=== PATIENT | female | born 1950 | race Caucasian/White ===

== ENCOUNTER 2024-11-06 19:41 | Inpatient (IN) ==
[2024-11-06] MEDS: MoRPHine SULFATE 4 MG/ML 1 ML CARP\\VIAL IV STA (20:22)
[2024-11-06] MEDS: ONDANSETRON INJ 2 MG/ML 2 ML VIAL IV STA (20:23)
[2024-11-06 20:29] LABS: Albumin Globulin Ratio 0.9 (0.9-2); BUN Creatinine Ratio 13.4 (10-20); Bilirubin,Total 1.1 mg/dl (0.2-1.0); Calcium 9.2 mg/dl (8.6-10.3); Creatinine Clr Calc Pharmacy 63.4 ml/min; Globulin 4.2 gm/dl (2.5-4.0); Potassium 4.1 mmol/L (3.5-5.1); Total Protein 7.9 gm/dl (6.0-8.3)
[2024-11-06 20:49] LABS: Basophils # (auto) 0.03 K/uL (0.00-0.20); Basophils % (auto) 0.7 %; Eosinophils # (auto) 0.04 K/uL (0.00-0.50); Eosinophils % (auto) 0.9 %; Hematocrit (blood only) 45.2 % (37.0-47.0); Hemoglobin 15.8 g/dl (12.0-16.0); Immature Granulocytes # (auto) 0.03 K/uL (0.01-0.20); Immature Granulocytes % (auto) 0.7 %; Lymphocytes # (auto) 1.07 K/uL (1.20-3.40); Lymphocytes % (auto) 23.7 %; Mean Corpuscular Volume 88.8 fL (80.0-100.0); Mean Platelet Volume 10.6 fL (9.4-12.4); Monocytes # (auto) 0.44 K/uL (0.11-0.59); Monocytes % (auto) 9.8 %; Neutrophils % (auto) 64.2 %; Platelet Count 163 K/uL (130-400); RDW Coefficient of Variation 13.2 % (11.5-14.5); RDW Standard Deviation 43.2 fL (36.4-46.3); Red Blood Count 5.09 M/uL (4.20-5.40); White Blood Count 4.51 K/ul (4.8-10.8)
--- NOTE | 2024-11-06 21:03 | Emergency Department Note ---
Impression & Plan Closed fracture of left hip, Fall, Atrial fibrillation ED Provider Note NAME: COLTEN ALVARES AGE: 74 SEX: F : 1950 ARRIVES VIA: Ambulance INFORMANT: [Patient][family] ED PROVIDER(S): [Ra Melvin MD] CHIEF COMPLAINT: Hip pain HISTORY OF PRESENT ILLNESS: The patient is a 74-year-old female who states that she was in her normal state of health when a short time ago, she went to sit on the couch and missed the end of the couch falling on her left hip. She had severe left hip pain and could not walk after. She presents for evaluation. There was no chest pain or shortness of breath. She has not injured her head, neck, back, ribs or abdomen. Her only complaint is in the area of the left hip. She is on aspirin, no strong blood thinning agents. PMHx/PSHx/Social Hx: See Below PHYSICAL EXAM: Primary Survey Airway: Intact Breathing: Breath sounds equal bilaterally. No respiratory distress Circulation: Skin warm, capillary refill less than 2 seconds Disability: Pupils equal and reactive to light Motor Function: Moves all extremities. Sensory: No deficits Secondary Survey GEN: Well developed and well-nourished HEAD: Normocephalic, atraumatic EYES: Pupils round and reactive to light, conjunctiva clear, extraocular movements intact ENT: No fluid in external acoustic canals, nares patent, oropharynx clear NECK: Midline trachea, no cervical spine tenderness HEART: Slightly irregular rhythm with a normal rate. 3/6 systolic murmur. LUNGS: Clear to auscultation bilaterally CHEST: Chest wall non-tender, no bruising/deformity ABD: No contusions, soft, non-tender, no distention PELVIS: Stable to rock BACK: No step offs or deformities, T-L spine non tender EXT: The left hip is tender to palpation and movement. She has a shortened and externally rotated left lower extremity. NEURO: No focal motor deficits, no sensory deficits DIFFERENTIAL DIAGNOSIS: Fracture, sprain, strain, hematoma, among others. EMERGENCY DEPARTMENT PROCEDURES: C-spine clinically cleared at the time of my initial evaluation/assessment. MEDICAL DECISION MAKING: There is no leukocytosis or concerning anemia. There is a normal platelet count. No coagulopathy. No renal failure or significant electrolyte abnormality. No concerning liver enzyme elevation. ECG shows what appears to be atrial fibrillation without acute ischemia. Cardiac enzyme testing x 1 is not consistent with acute cardiac injury. Chest x-ray does not show any obvious pneumonia or concerning CHF. Films of the left hip and pelvis show a an intertrochanteric hip fracture. On exam, the patient was tender in the area of the left hip. No other obvious injuries by exam or history. The patient is in need of hospitalization. She has fractured her left hip. I did provide pain medication, IV morphine. She was given IV Zofran for nausea. I did speak with orthopedics. I did speak with the patient and family. I did consult case management, I did consult the on-call hospitalist. She requires admission and orthopedic intervention. Of note, the atrial fibrillation findings were discussed with the patient, she is unaware of having a history of A-fib. She is not anticoagulated. Prior/Outside records/notes reviewed: Today's EMS notes describing her presentation and transport of the hospital. ECG per my interpretation: Indication was fall. The ECG shows what appears to be atrial fibrillation with a rate of 80. 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 LVH is present. There is no ST elevation, no PVCs but the QTc is 486. Continuous Cardiac Monitoring per my interpretation: An order was placed for continuous cardiac monitoring. The monitor shows a rate of 83 with atrial fibrillation. Imaging/x-ray results per my interpretation: Chest x-ray does not show any obvious CHF or obvious pneumonia. There were some changes suspected from her body habitus. Films of the left hip and pelvis show a intertrochanteric hip fracture. Chronic Medical/Social conditions affecting care: Advanced age. Care/Management discussed with: Orthopedics-Dr. Fitch. Case management and the on-call hospitalist. Level of care consideration(s): After review of the information above and other included data: --I believe the patient requires escalation of care to admission DISPOSITION: Admission Past Med/Surg History Problem List (Updated 11/07/24 @ 11:37 by Ra Melvin MD) Atrial fibrillation (Acute) Fall (Acute) Closed fracture of left hip (Acute) Chronic heart failure with preserved ejection fraction Severe pulmonary hypertension Atrial fibrillation with controlled ventricular response Moderate mitral regurgitation Severe mitral valve stenosis Preop cardiovascular exam CHF (congestive heart failure) Closed left hip fracture Medical History Aortic stenosis Social History Smoking Status: Former smoker Smoking End Date: 5 years ago; Hx Alcohol Use: Yes Alcohol type: wine Hx Substance Use: No Preferred Language: New Zealander Communication Ability: Effective 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 Beliefs That Will Affect Care: None Current Living Situation: Spouse Other Information That Helps Us Care for You: No Feels Safe at Home: Yes Safety Concerns: Feels Safe At This Time Assistive Devices: Cane Allergies Allergies Allergy/AdvReac Type Severity Reaction Status Date / Time Penicillins Allergy Itching Verified 11/06/24 23:26 Home Meds Home Medications Medication Instructions Recorded Confirmed carvedilol 25 mg tablet 25 mg PO BID 11/06/24 11/06/24 hydrochlorothiazide 25 mg tablet 25 mg PO DAILY 11/06/24 11/06/24 lisinopril 20 mg tablet 20 mg PO DAILY 11/06/24 11/06/24 Results & Data (ED) Vital Signs Vital Signs - 24 hr 11/06/24 19:48 Temperature 36.5 C Temperature Source Oral Pulse Rate 83 Respiratory Rate 22 Blood Pressure 147/86 H Blood Pressure Mean 106 Blood Pressure Position Sitting Pulse Oximetry 93 Oxygen Delivery Method Room Air Sepsis Recent Fever Within 48 Hours No Sepsis New/Unexplained Change in Mental Status No Sepsis Action Taken by Nursing No Action Required Home Medications Current Medication List: was personally reviewed by me Laboratory Data Attestation: I reviewed the patient's lab results. 11/07/24 05:44 11/07/24 05:44 Lab Results 11/06/24 11/06/24 Range/Units 19:54 19:57 WBC 4.51 L (4.8-10.8) K/ul RBC 5.09 (4.20-5.40) M/uL Hgb 15.8 (12.0-16.0) g/dl Hct 45.2 (37.0-47.0) % MCV 88.8 (80.0-100.0) fL MCH 31.0 (25.0-34.0) pg MCHC 35.0 (32.0-36.0) g/dL RDW Std Deviation 43.2 (36.4-46.3) fL RDW Coeff of Gifty 13.2 (11.5-14.5) % Plt Count 163 (130-400) K/uL MPV 10.6 (9.4-12.4) fL Immature Gran % (Auto) 0.7 % Neut % (Auto) 64.2 % Lymph % (Auto) 23.7 % Arthur % (Auto) 9.8 % Eos % (Auto) 0.9 % Baso % (Auto) 0.7 % Neut # (Auto) 2.90 (1.40-6.50) K/uL Lymph # (Auto) 1.07 L (1.20-3.40) K/uL Arthur # (Auto) 0.44 (0.11-0.59) K/uL Eos # (Auto) 0.04 (0.00-0.50) K/uL Baso # (Auto) 0.03 (0.00-0.20) K/uL Immature Gran # (Auto) 0.03 (0.01-0.20) K/uL PT 11.9 (9.0-12.0) Seconds INR 1.1 (0.9-1.1) APTT 29 (21-31) Seconds PTT Ratio 1.1 Sodium 137 (136-145) mmol/L Potassium 4.1 (3.5-5.1) mmol/L Chloride 106 (98-107) mmol/L Carbon Dioxide 20 L (21-32) mmol/L Anion Gap 11 (3-11) BUN 13 (6-23) mg/dl Creatinine 0.97 (0.6-1.2) mg/dl Est Cr Clr Drug Dosing 63.4 ml/min eGFR 61.32 BUN/Creatinine Ratio 13.4 (10-20) Glucose 155 H (70-99(Fasting)) mg/dl Calcium 9.2 (8.6-10.3) mg/dl Total Bilirubin 1.1 H (0.2-1.0) mg/dl AST 29 (13-39) U/L ALT 16 (7-52) U/L Alkaline Phosphatase 62 (34-104) U/L Troponin I High Sens 8.2 (0-14) pg/ml Total Protein 7.9 (6.0-8.3) gm/dl Albumin 3.7 (3.4-5.0) gm/dl Globulin 4.2 H (2.5-4.0) gm/dl Albumin/Globulin Ratio 0.9 (0.9-2) Hepatitis C Ab Screen Negative (Negative) Administered Medications Carvedilol (Carvedilol 25 Mg Tab) 25 mg PO BID [facility] Stop: 12/07/24 08:59 Last Admin: 11/07/24 07:59 Dose: 25 mg Documented By: IRVING Hydrochlorothiazide (Hydrochlorothiazide 25 Mg Tab) 25 mg PO DAILY [facility] Stop: 12/07/24 08:59 Last Admin: 11/07/24 07:59 Dose: 25 mg Documented By: IRVING Hydromorphone HCl (Hydromorphone Inj 0.5 Mg/0.5 Ml Syr) 0.5 mg IV Q4H PRN PRN Reason: Severe Pain (Scale 7, 8, 9,10) Stop: 11/20/24 23:15 Last Admin: 11/07/24 08:01 Dose: 0.5 mg Documented By: Admin: 11/07/24 03:39 Dose: 0.5 mg Documented By: Admin: 11/06/24 23:42 Dose: 0.5 mg Documented By: BILLY Sodium Chloride (Nss) 1,000 mls @ 50 mls/hr IV .Q20H [facility] Stop: 11/09/24 23:15 Last Admin: 11/07/24 00:04 Dose: 50 mls/hr Documented By: BILLY Lisinopril (Lisinopril 20 Mg Tab) 20 mg PO DAILY [facility] Stop: 12/07/24 08:59 Last Admin: 11/07/24 07:59 Dose: 20 mg Documented By: IRVING Ondansetron HCl (Ondansetron Inj 2 Mg/Ml 2 Ml Vial) 4 mg IV Q6H PRN PRN Reason: Nausea And Vomiting Stop: 12/06/24 23:20 Last Admin: 11/07/24 00:53 Dose: 4 mg Documented By: BILLY Discontinued Medications Carvedilol (Carvedilol 25 Mg Tab) 25 mg PO NOW ONE Stop: 11/06/24 21:48 Last Admin: 11/06/24 23:44 Dose: 25 mg Documented By: BILLY Hydromorphone HCl (Hydromorphone Inj 0.5 Mg/0.5 Ml Syr) 0.5 mg IV NOW STA Stop: 11/07/24 00:07 Last Admin: 11/07/24 00:19 Dose: 0.5 mg Documented By: KRT Miscellaneous Information (Patient's Allergy Info Needs Entered) 1 each N/A Q30M STA Stop: 11/06/24 23:24 Last Admin: 11/06/24 23:27 Dose: 1 each Documented By: KRT Morphine Sulfate (Morphine Sulfate 4 Mg/Ml 1 Ml Carp\Vial) 4 mg IV NOW STA Stop: 11/06/24 20:17 Last Admin: 11/06/24 20:22 Dose: 4 mg Documented By: QGV Morphine Sulfate (Morphine Sulfate 4 Mg/Ml 1 Ml Carp\Vial) 4 mg IV Q15M PRN PRN Reason: Pain Stop: 11/20/24 20:15 Last Admin: 11/06/24 21:06 Dose: 4 mg Documented By: QGV Ondansetron HCl (Ondansetron Inj 2 Mg/Ml 2 Ml Vial) 4 mg IV NOW STA Stop: 11/06/24 20:17 Last Admin: 11/06/24 20:23 Dose: 4 mg Documented By: QGV Discharge Plan Visit Data Chief Complaint: Hip Pain Stated Complaint: Fall, L Hip Pain ED Provider: Ra Melvin Discharge Problem: Closed fracture of left hip, Fall, Atrial fibrillation Patient Disposition: Admitted As Inpatient Condition: Fair Discharge Instructions Interventions: ED Discharge Assessment Last Done: 11/06/24 22:44 Discharge Problem: Closed fracture of left hip Qualifiers: Encounter type: initial encounter Qualified Code(s): S72.002A - Fracture of unspecified part of neck of left femur, initial encounter for closed fracture Fall Qualifiers: Encounter type: initial encounter Qualified Code(s): W19.XXXA - Unspecified fall, initial encounter Atrial fibrillation Qualifiers: Atrial fibrillation type: unspecified Qualified Code(s): I48.91 - Unspecified atrial fibrillation
[2024-11-06] MEDS: MoRPHine SULFATE 4 MG/ML 1 ML CARP\\VIAL IV PRN (21:06)
[2024-11-06 21:41] LABS: INR 1.1 (0.9-1.1); Partial Thromboplastin Ratio 1.1; Partial Thromboplastin Time 29 Seconds (21-31); Prothrombin Time 11.9 Seconds (9.0-12.0)
--- NOTE | 2024-11-06 21:56 | History & Physical Report ---
Date of Service November 06, 2024 Assessment & Plan (1) Closed left hip fracture: Plan: 74-year-old female from [place] visiting [place] and the son is surgeon in our hospital with past medical history significant for hypertension, CHF is status post fall and left hip fracture. Patient says she has chronic pain in the left hip. Lately walking with a cane and has difficulty ambulating.. Patient says she can walk about a block slowly but family does not think so. She was trying to sit in a chair today when she slipped and fell down in the sitting position and hurt her left hip. Did not hit her head. No loss of consciousness. Having lot of pain in the left hip region. Denies any headache. No dizziness. She has cataract in left eye and vision is not that great in that eye. No headache. No runny nose or sore throat. No recent fevers. Constantin es chest pain. No shortness of breath. No nausea. No abdominal pain. Normal bowel and bladder movements. Currently hemodynamics okay. Closed left hip fracture Status post mechanical fall History of hypertension and CHF EKG questionable A-fib possible new Labs are okay Checks x-ray possible mild congestion Ambulatory status not great Will monitor on telemetry Follow repeat labs Follow repeat EKG Will follow echo Consult cardiology for preop evaluation Pain control N.p.o. Ortho consult in a.m. Possible new A-fib Monitor on telemetry Echo Cardiac consult for further recommendation History of CHF No records available Will follow echo Patient on hydrochlorothiazide which will be continued Patient getting gentle fluids as n.p.o. Will monitor for volume overload History of hypertension Continue Coreg and lisinopril hydrochlorothiazide Will monitor DVT prophylaxis SCDs on right leg Further anticoagulation as per Ortho Disposition Telemetry Full code. History of Present Illness Chief Complaint: Status post fall and left hip fracture Primary Care Provider: NO PCP 74-year-old female from [place] visiting [place] and the son is surgeon in our hospital with past medical history significant for hypertension, CHF is status post fall and left hip fracture. Patient says she has chronic pain in the left hip. Lately walking with a cane and has difficulty ambulating.. Patient says she can walk about a block slowly but family does not think so. She was trying to sit in a chair today when she slipped and fell down in the sitting position and hurt her left hip. Did not hit her head. No loss of consciousness. Having lot of pain in the left hip region. Denies any headache. No dizziness. She has cataract in left eye and vision is not that great in that eye. No headache. No runny nose or sore throat. No recent fevers. Denies chest pain. No shortness of breath. No nausea. No abdominal pain. Normal bowel and bladder movements. Currently hemodynamics okay. Past medical history. As mentioned above Past surgical history. Cholecystectomy. Appendectomy. Tonsillectomy. Social history. Quit smoking 5 years ago. Alcohol occasionally. Family history. Father had heart attack at the age of 36. Mother had pancreatic cancer. Sister had cervical cancer and rectal cancer. Allergies Allergy/AdvReac Type Severity Reaction Status Date / Time Penicillins Allergy Itching Verified 11/06/24 23:26 Home Medications Medication Instructions Recorded Confirmed Type carvedilol 25 mg tablet 25 mg PO BID 11/06/24 11/06/24 History hydrochlorothiazide 25 mg tablet 25 mg PO DAILY 11/06/24 11/06/24 History lisinopril 20 mg tablet 20 mg PO DAILY 11/06/24 11/06/24 History Past Med/Surg History Problem List (Updated 11/06/24 @ 22:14 by Dong Paulson MD) Closed left hip fracture Social History Smoking Status: Former smoker Smoking End Date: 5 years ago; Hx Alcohol Use: Yes Alcohol type: wine Hx Substance Use: No Preferred Language: Samoan Communication Ability: Effective 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 ENT- oropharynx clear Neck- supple, no JVD. Lungs- clear to auscultation no wheezing or crackles Heart- regular rhythm; Systolic murmur, no gallop. Abdomen- normal bowel sounds, soft, nontender, no distension Extremities- B/L lower extremity chronic skin changes seen. Left lower extremity is shortened and externally rotated Neuro- alert, oriented PERRL, EOMI; no facial palsy; no dysarthria Results & Data Results & Data Vital Signs (Past 12 Hours) Vital Signs Temp Pulse Resp BP Pulse Ox O2 Del Method 11/06/24 19:48 36.5 C 83 22 147/86 H 93 Room Air Diagnostic Findings Laboratory Results WBC 4.51 K/ul (4.8-10.8) L 11/06/24 19:54 RBC 5.09 M/uL (4.20-5.40) 11/06/24 19:54 Hgb 15.8 g/dl (12.0-16.0) 11/06/24 19:54 Hct 45.2 % (37.0-47.0) 11/06/24 19:54 MCV 88.8 fL (80.0-100.0) 11/06/24 19:54 MCH 31.0 pg (25.0-34.0) 11/06/24 19:54 MCHC 35.0 g/dL (32.0-36.0) 11/06/24 19:54 RDW Std Deviation 43.2 fL (36.4-46.3) 11/06/24 19:54 RDW Coeff of Gifty 13.2 % (11.5-14.5) 11/06/24 19:54 Plt Count 163 K/uL (130-400) 11/06/24 19:54 MPV 10.6 fL (9.4-12.4) 11/06/24 19:54 Immature Gran % (Auto) 0.7 % 11/06/24 19:54 Neut % (Auto) 64.2 % 11/06/24 19:54 Lymph % (Auto) 23.7 % 11/06/24 19:54 Gilliam % (Auto) 9.8 % 11/06/24 19:54 Eos % (Auto) 0.9 % 11/06/24 19:54 Baso % (Auto) 0.7 % 11/06/24 19:54 Neut # (Auto) 2.90 K/uL (1.40-6.50) 11/06/24 19:54 Lymph # (Auto) 1.07 K/uL (1.20-3.40) L 11/06/24 19:54 Gilliam # (Auto) 0.44 K/uL (0.11-0.59) 11/06/24 19:54 Eos # (Auto) 0.04 K/uL (0.00-0.50) 11/06/24 19:54 Baso # (Auto) 0.03 K/uL (0.00-0.20) 11/06/24 19:54 Immature Gran # (Auto) 0.03 K/uL (0.01-0.20) 11/06/24 19:54 PT 11.9 Seconds (9.0-12.0) 11/06/24 19:57 INR 1.1 (0.9-1.1) 11/06/24 19:57 APTT 29 Seconds (21-31) 11/06/24 19:57 PTT Ratio 1.1 11/06/24 19:57 Sodium 137 mmol/L (136-145) 11/06/24 19:54 Potassium 4.1 mmol/L (3.5-5.1) 11/06/24 19:54 Chloride 106 mmol/L (98-107) 11/06/24 19:54 Carbon Dioxide 20 mmol/L (21-32) L 11/06/24 19:54 Anion Gap 11 (3-11) 11/06/24 19:54 BUN 13 mg/dl (6-23) 11/06/24 19:54 Creatinine 0.97 mg/dl (0.6-1.2) 11/06/24 19:54 Est Cr Clr Drug Dosing 63.4 ml/min 11/06/24 19:54 eGFR 61.32 11/06/24 19:54 BUN/Creatinine Ratio 13.4 (10-20) 11/06/24 19:54 Glucose 155 mg/dl (70-99(Fasting)) H 11/06/24 19:54 Calcium 9.2 mg/dl (8.6-10.3) 11/06/24 19:54 Total Bilirubin 1.1 mg/dl (0.2-1.0) H 11/06/24 19:54 AST 29 U/L (13-39) 11/06/24 19:54 ALT 16 U/L (7-52) 11/06/24 19:54 Alkaline Phosphatase 62 U/L (34-104) 11/06/24 19:54 Total Protein 7.9 gm/dl (6.0-8.3) 11/06/24 19:54 Albumin 3.7 gm/dl (3.4-5.0) 11/06/24 19:54 Globulin 4.2 gm/dl (2.5-4.0) H 11/06/24 19:54 Albumin/Globulin Ratio 0.9 (0.9-2) 11/06/24 19:54 ECG Additional Comments: ECG. Undetermined rhythm rate of 80. Left axis deviation. Incomplete right bundle branch block. QTc 486. Code Status & VTE Plan VTE Prophylaxis Plan VTE Prophylaxis will be ordered: Yes
[2024-11-06 22:49] LABS: Troponin I High Sensitivity 8.2 pg/ml (0-14)
--- NOTE | 2024-11-06 23:10 | XRay Report ---
Exam(s): XR CXR 1 VIEW EXAM: XR Chest, 1 View CLINICAL HISTORY: Reason for exam: screening. TECHNIQUE: Frontal view of the chest. COMPARISON: No relevant prior studies available. IMPRESSION: Cardiomegaly. Diffuse edema-like infiltrates, likely related to the CHF/fluid overload. No pleural fluid or pneumothorax. Electronically signed by: Shalom Mendez MD 11/06/24 23:09 PM
--- NOTE | 2024-11-06 23:12 | XRay Report ---
Exam(s): XR HIP + PELVIS, 1 view EXAM: XR Left Hip With Pelvis When Performed, 2 or 3 Views CLINICAL HISTORY: Reason for exam: Hip fracture. TECHNIQUE: Two or three views of the left hip with pelvis when performed. COMPARISON: No relevant prior studies available. IMPRESSION: Limited views. There is an acute intertrochanteric fracture of the proximal left femur with mild displacement. Advanced degenerative arthropathy is noted at the left hip joint. Electronically signed by: Shalom Mendez MD 11/06/24 23:11 PM
[2024-11-06] MEDS ORDERED: NITROGLYCERIN SL 0.4 MG/TAB TAB SL PRN (23:16)
[2024-11-06] MEDS: Patient's ALLERGY Info needs ENTERED STA (23:27)
[2024-11-06] MEDS: HYDROmorphone INJ 0.5 MG/0.5 ML SYR IV PRN (23:42)
[2024-11-06] MEDS: carvediloL 25 MG TAB PO ONE (23:44)
[2024-11-07] MEDS: SODIUM CHLORIDE 0.9% 1,000 ML IV SCH (00:04)
[2024-11-07] MEDS: HYDROmorphone INJ 0.5 MG/0.5 ML SYR IV STA (00:19)
[2024-11-07] MEDS: ONDANSETRON INJ 2 MG/ML 2 ML VIAL IV PRN (00:53)
[2024-11-07 06:04] LABS: Basophils # (auto) 0.02 K/uL (0.00-0.20); Basophils % (auto) 0.3 %; Hematocrit (blood only) 41.8 % (37.0-47.0); Hemoglobin 14.4 g/dl (12.0-16.0); Immature Granulocytes # (auto) 0.03 K/uL (0.01-0.20); Immature Granulocytes % (auto) 0.4 %; Lymphocytes # (auto) 0.83 K/uL (1.20-3.40); Lymphocytes % (auto) 10.9 %; Mean Corpuscular Hemoglobin 30.6 pg (25.0-34.0); Mean Corpuscular Hgb Conc 34.4 g/dL (32.0-36.0); Mean Corpuscular Volume 88.9 fL (80.0-100.0); Monocytes # (auto) 0.64 K/uL (0.11-0.59); Monocytes % (auto) 8.4 %; Neutrophils # (auto) 6.06 K/uL (1.40-6.50); Platelet Count 138 K/uL (130-400); RDW Coefficient of Variation 13.4 % (11.5-14.5); RDW Standard Deviation 43.9 fL (36.4-46.3); White Blood Count 7.58 K/ul (4.8-10.8)
[2024-11-07 06:22] LABS: BUN Creatinine Ratio 17.4 (10-20); Creatinine Clr Calc Pharmacy 66.9 ml/min; Magnesium 1.8 mg/dl (1.7-2.4); Potassium 4.1 mmol/L (3.5-5.1)
[2024-11-07 06:29] LABS: Troponin I High Sensitivity 7.8 pg/ml (0-14)
--- NOTE | 2024-11-07 06:37 | Orthopedic Consultation ---
Date of Consultation November 07, 2024 Assessment & Plan (1) Closed left hip fracture: The patient is a 74 year old female who sustained a left hip fracture from a ground level fall. The patients treatment options of conservative versus surgical intervention were discussed. Since the patient was an ambulatory prior to the injury and to avoid the risks of bed sores, pulmonary complications, and to give the best chance for ambulation, I recommended surgery. The patient understands the risks of surgery, which include but are not limited to: bleeding, infection, re-operation, damage to nerves and arteries, continued pain, failure of the hardware, mal-union, non-union, DVT, and . In addition, the patient is aware of the 20-30% morbidity associated with hip fracture for up to 1 year following a hip fracture. The patient has elected to proceed with surgery ORIF left hip fracture and the informed consent was signed. The patient understands all these instructions and explanations, all their questions have been satisfactorily addressed. Placed on the add-on schedule for today. Will proceed with surgery if medically stable, cleared by Cardiology & Hospitalist service. Patient has been NPO after midnight. The patient will be NWB. TEDs and foot pumps to RLE. Antibiotics and TXA account resolution analyst to OR. Present on Admission?: Yes History of Present Illness Reason for Consultation: L hip fracture Requesting Physician: Lorelei Fitch MD Attending Physician: Cornelia Lubin MD History of Present Illness 74 yo female visiting from [place] sustained a ground level fall missing the sofa as she attempted to sit, injuring her left hip. She has had left hip pain and walks with a walker. She was unable to place weight on her leg and was brought to the ED where x-rays were obtained. She was admitted to the Hospitalist service and I was consulted for further evaluation and treatment. There is concern for new on-set A-fib and she was admitted to the MICU and Cardiology was also consulted. Allergies Allergy/AdvReac Type Severity Reaction Status Date / Time Penicillins Allergy Itching Verified 11/06/24 23:26 Home Medications Medication Instructions Recorded Confirmed Type carvedilol 25 mg tablet 25 mg PO BID 11/06/24 11/06/24 History hydrochlorothiazide 25 mg tablet 25 mg PO DAILY 11/06/24 11/06/24 History lisinopril 20 mg tablet 20 mg PO DAILY 11/06/24 11/06/24 History Patient History Social History Smoking Status: Former smoker Smoking End Date: 5 years ago; Hx Alcohol Use: Yes Alcohol type: wine Hx Substance Use: No Preferred Language: Lao Communication Ability: Effective Data Quality Consultant Required: No Beliefs That Will Affect Care: None Current Living Situation: Spouse Other Information That Helps Us Care for You: No Feels Safe at Home: Yes Safety Concerns: Feels Safe At This Time Assistive Devices: Cane, Denture - Upper, Denture - Lower and Glasses Review of Systems Review of Systems: All systems reviewed & are unremarkable except as noted in HPI & below Physical Exam Physical Exam: LLE: Shortened and externally rotated. Able to wiggle toes & ankle. 2+ DP pulse. Calf soft and non-tender. Results & Data Vital Signs (Past 12 Hours) Vital Signs Temp Pulse Pulse Resp BP BP Pulse Ox 11/07/24 03:24 36.4 C L 92 H 12 154/100 H 92 11/07/24 00:01 91 H 11/06/24 23:35 36.4 C L 99 H 22 151/97 H 92 11/06/24 23:30 11/06/24 22:00 92 H 20 106/78 92 11/06/24 19:48 36.5 C 83 22 147/86 H 93 O2 Del Method O2 Flow Rate 11/07/24 03:24 Nasal Cannula 5 11/07/24 00:01 11/06/24 23:35 Nasal Cannula 4 11/06/24 23:30 Nasal Cannula 4 11/06/24 22:00 Nasal Cannula 2 11/06/24 19:48 Room Air Laboratory Results Laboratory Results WBC 7.58 K/ul (4.8-10.8) 11/07/24 05:44 RBC 4.70 M/uL (4.20-5.40) 11/07/24 05:44 Hgb 14.4 g/dl (12.0-16.0) 11/07/24 05:44 Hct 41.8 % (37.0-47.0) 11/07/24 05:44 MCV 88.9 fL (80.0-100.0) 11/07/24 05:44 MCH 30.6 pg (25.0-34.0) 11/07/24 05:44 MCHC 34.4 g/dL (32.0-36.0) 11/07/24 05:44 RDW Std Deviation 43.9 fL (36.4-46.3) 11/07/24 05:44 RDW Coeff of Gifty 13.4 % (11.5-14.5) 11/07/24 05:44 Plt Count 138 K/uL (130-400) 11/07/24 05:44 MPV 10.0 fL (9.4-12.4) 11/07/24 05:44 Immature Gran % (Auto) 0.4 % 11/07/24 05:44 Neut % (Auto) 80.0 % 11/07/24 05:44 Lymph % (Auto) 10.9 % 11/07/24 05:44 Forrest % (Auto) 8.4 % 11/07/24 05:44 Eos % (Auto) 0.0 % 11/07/24 05:44 Baso % (Auto) 0.3 % 11/07/24 05:44 Neut # (Auto) 6.06 K/uL (1.40-6.50) 11/07/24 05:44 Lymph # (Auto) 0.83 K/uL (1.20-3.40) L 11/07/24 05:44 Forrest # (Auto) 0.64 K/uL (0.11-0.59) H 11/07/24 05:44 Eos # (Auto) 0.00 K/uL (0.00-0.50) 11/07/24 05:44 Baso # (Auto) 0.02 K/uL (0.00-0.20) 11/07/24 05:44 Immature Gran # (Auto) 0.03 K/uL (0.01-0.20) 11/07/24 05:44 PT 11.9 Seconds (9.0-12.0) 11/06/24 19:57 INR 1.1 (0.9-1.1) 11/06/24 19:57 APTT 29 Seconds (21-31) 11/06/24 19:57 PTT Ratio 1.1 11/06/24 19:57 Sodium 137 mmol/L (136-145) 11/07/24 05:44 Potassium 4.1 mmol/L (3.5-5.1) 11/07/24 05:44 Chloride 106 mmol/L (98-107) 11/07/24 05:44 Carbon Dioxide 24 mmol/L (21-32) 11/07/24 05:44 Anion Gap 7 (3-11) 11/07/24 05:44 BUN 16 mg/dl (6-23) 11/07/24 05:44 Creatinine 0.92 mg/dl (0.6-1.2) 11/07/24 05:44 Est Cr Clr Drug Dosing 66.9 ml/min 11/07/24 05:44 eGFR 65.34 11/07/24 05:44 BUN/Creatinine Ratio 17.4 (10-20) 11/07/24 05:44 Glucose 150 mg/dl (70-99(Fasting)) H 11/07/24 05:44 Calcium 9.0 mg/dl (8.6-10.3) 11/07/24 05:44 Magnesium 1.8 mg/dl (1.7-2.4) 11/07/24 05:44 Total Bilirubin 1.1 mg/dl (0.2-1.0) H 11/06/24 19:54 AST 29 U/L (13-39) 11/06/24 19:54 ALT 16 U/L (7-52) 11/06/24 19:54 Alkaline Phosphatase 62 U/L (34-104) 11/06/24 19:54 Troponin I High Sens 7.8 pg/ml (0-14) 11/07/24 05:44 Total Protein 7.9 gm/dl (6.0-8.3) 11/06/24 19:54 Albumin 3.7 gm/dl (3.4-5.0) 11/06/24 19:54 Globulin 4.2 gm/dl (2.5-4.0) H 11/06/24 19:54 Albumin/Globulin Ratio 0.9 (0.9-2) 11/06/24 19:54 Hepatitis C Ab Screen Negative (Negative) 11/06/24 19:57 Impressions Hip/Pelvis X-Ray 11/06/24 20:00 Exam(s): XR HIP + PELVIS, 1 view EXAM: XR Left Hip With Pelvis When Performed, 2 or 3 Views CLINICAL HISTORY: Reason for exam: Hip fracture. TECHNIQUE: Two or three views of the left hip with pelvis when performed. COMPARISON: No relevant prior studies available. IMPRESSION: Limited views. There is an acute intertrochanteric fracture of the proximal left femur with mild displacement. Advanced degenerative arthropathy is noted at the left hip joint. Electronically signed by: Shalom Mendez MD 11/06/24 23:11 PM Chest X-Ray 11/06/24 20:01 Exam(s): XR CXR 1 VIEW EXAM: XR Chest, 1 View CLINICAL HISTORY: Reason for exam: screening. TECHNIQUE: Frontal view of the chest. COMPARISON: No relevant prior studies available. IMPRESSION: Cardiomegaly. Diffuse edema-like infiltrates, likely related to the CHF/fluid overload. No pleural fluid or pneumothorax. Electronically signed by: Shalom Mendez MD 11/06/24 23:09 PM
[2024-11-07 07:38] LABS: Estimated Average Glucose 100 mg/dl; Hemoglobin A1C 5.1 % (4.5-5.6)
[2024-11-07] MEDS: hydroCHLOROthiazide 25 MG TAB PO SCH (07:59)
[2024-11-07] MEDS: lisinopril 20 MG TAB PO SCH (07:59)
[2024-11-07] MEDS: carvediloL 25 MG TAB PO SCH (07:59)
[2024-11-07] MEDS ORDERED: PROPOFOL IV EMULSION 10 MG/ML 20 ML VIAL IV ONE (09:46)
[2024-11-07] MEDS ORDERED: LIDOCAINE 2% 2 ML VIAL/AMP(20MG/ML) INFIL ONE (09:46)
--- NOTE | 2024-11-07 09:46 | Anesthesiology Consultation ---
Date of Service November 07, 2024 Assessment & Plan Chart Review Chart Review: Acceptable Risk for Surgery, Patient NOT seen in Pre Admission Testing and file clerk data entry initiated Consults Requested none History Surgery Operation Date: 11/07/24 07:00 Proposed Procedures p Left Troch Nail - Silver Mariam Fitch MD Height/Weight Height: 5 ft 6 in Weight: 108.5 kg Allergies Allergy/AdvReac Type Severity Reaction Status Date / Time Penicillins Allergy Itching Verified 11/06/24 23:26 Medications Home Medications Medication Instructions Recorded Confirmed Last Taken carvedilol 25 mg tablet 25 mg PO BID 11/06/24 11/06/24 Unknown hydrochlorothiazide 25 mg tablet 25 mg PO DAILY 11/06/24 11/06/24 Unknown lisinopril 20 mg tablet 20 mg PO DAILY 11/06/24 11/06/24 Unknown Active Medications Generic Name Dose Route Start Last Admin Trade Name Freq PRN Reason Stop Dose Admin Carvedilol 25 mg 11/07/24 09:00 11/07/24 07:59 Carvedilol 25 Mg Tab PO 12/07/24 08:59 25 mg BID AFSHAN Administration Hydrochlorothiazide 25 mg 11/07/24 09:00 11/07/24 07:59 Hydrochlorothiazide 25 Mg Tab PO 12/07/24 08:59 25 mg DAILY AFSHAN Administration Hydromorphone HCl 0.5 mg 11/06/24 23:16 11/07/24 08:01 Hydromorphone Inj 0.5 Mg/0.5 Ml Syr IV 11/20/24 23:15 0.5 mg Q4H PRN Administration Severe Pain (Scale 7, 8, 9,10) Sodium Chloride 1,000 mls @ 50 mls/hr 11/06/24 23:16 11/07/24 00:04 Nss IV 11/09/24 23:15 50 mls/hr .Q20H AFSHAN Administration Lisinopril 20 mg 11/07/24 09:00 11/07/24 07:59 Lisinopril 20 Mg Tab PO 12/07/24 08:59 20 mg DAILY AFSHAN Administration Ondansetron HCl 4 mg 11/06/24 23:21 11/07/24 00:53 Ondansetron Inj 2 Mg/Ml 2 Ml Vial IV 12/06/24 23:20 4 mg Q6H PRN Administration Nausea And Vomiting Social History Smoking Status: Former smoker Smoking End Date: 5 years ago Hx Alcohol Use: Yes Alcohol type: wine alcohol intake frequency: holidays/special occasions only Hx Substance Use: No Physical Exam Vital Signs Last Vital Signs Temp 36.5 C 11/07/24 08:17 Pulse 80 11/07/24 08:17 Resp 21 11/07/24 08:17 BP 120/81 11/07/24 08:17 Pulse Ox 95 11/07/24 08:17 O2 Del Method Nasal Cannula 11/07/24 08:17 O2 Flow Rate 5 11/07/24 08:17 Testing Laboratory Results 11/07/24 05:44 11/07/24 05:44 PT 11.9 Seconds (9.0-12.0) 11/06/24 19:57 INR 1.1 (0.9-1.1) 11/06/24 19:57 APTT 29 Seconds (21-31) 11/06/24 19:57 Hemoglobin A1c 5.1 % (4.5-5.6) 11/07/24 05:44 Electrocardiogram Date: 11/06/24 Findings: + RBBB LAD, a-fib Echocardiogram Date: 11/07/24 EF: 60-65 LV Function: normal Other Findings: + atrial enlargement (left) Valvular Disease: + (mild-mod) and + MS (severe, 10-14 mmHg)
[2024-11-07] MEDS ORDERED: ETOMIDATE 2 MG/ML 20 ML VIAL IV ONE (09:47)
[2024-11-07] MEDS ORDERED: ROCURONIUM BROMIDE 10 MG/ML 5 ML VIAL IV ONE (09:47)
[2024-11-07] MEDS ORDERED: fentaNYL citrate PF 100 MCG/2 ML VIAL ONE (09:47)
--- NOTE | 2024-11-07 10:05 | Cardiology Consultation ---
Date of Consultation November 07, 2024 Assessment & Plan (1) Preop cardiovascular exam: (2) Severe mitral valve stenosis: (3) Moderate mitral regurgitation: (4) Aortic stenosis: (5) Atrial fibrillation with controlled ventricular response: (6) Severe pulmonary hypertension: (7) Chronic heart failure with preserved ejection fraction: Plan Complex 74-year-old female presents with mechanical fall and acute left hip fracture. She is considered high perioperative cardiovascular risk due to severe mitral valve stenosis with severe pulmonary hypertension. Moderate mitral regurgitation and mild to moderate aortic valve stenosis also noted. LV systolic function preserved without regional wall motion abnormality. High- sensitivity troponins are normal. She does not appear volume overloaded on exam. Surgery is considered urgent and necessary due to acute fracture and intrac table pain managed with narcotic medication. Would not add additional diuretic therapy currently. Heart rate is controlled with carvedilol. Continue current dose of beta-jose therapy. Recommend avoiding spinal anesthesia due to severe stenotic valvular disease. Initiate anticoagulation as soon as bleeding risk is deemed acceptable postoperatively. Obtain medical records from [facility] insulation setter in [place]. Perioperative risk discussed with anesthesia service for continuity of care. Cardiology will continue to follow during hospitalization. I spent a total of 75 minutes on the date of service in preparation, delivery, and documentation of the care provided to this patient, excluding any time spent in the performance of separately billed services. Jame Aceveod DO, [facility] History of Present Illness Reason for Consultation: New AF, h/o CHF, pre op Requesting Physician: Dr. Paulson Attending Physician: Cornelia Lubin MD History of Present Illness 74-year-old female presents to the hospital after mechanical fall and left hip fracture. Pain controlled with narcotic pain medication currently. Reports cardiac history of aortic stenosis however she is unaware of any further details. She also remembers undergoing a transesophageal echocardiogram approximately 2 years ago. Activity/exercise limited due to chronic hip discomfort prior to recent fall and fracture. Denies orthopnea, PND, or lower extremity edema. She is currently not treated with loop diuretic therapy. Tolerating daily hydrochlorothiazide, however, notes intermittent noncompliance. Denies any recent exertional chest discomfort or heaviness. No irregular heartbeats, palpitations, lightheadedness, dizziness, syncope, or near syncope. Bedside echocardiogram demonstrates severe mitral stenosis, mild to moderate aortic valve stenosis with severe left atrial enlargement and severe pulmonary hypertension. These findings are unknown to the patient. No prior records available for comparison. ECG on admission demonstrating rate controlled atrial fibrillation, however, patient unaware of this diagnosis as well. Allergies Allergy/AdvReac Type Severity Reaction Status Date / Time Penicillins Allergy Itching Verified 11/06/24 23:26 Home Medications Medication Instructions Recorded Confirmed Type carvedilol 25 mg tablet 25 mg PO BID 11/06/24 11/06/24 History hydrochlorothiazide 25 mg tablet 25 mg PO DAILY 11/06/24 11/06/24 History lisinopril 20 mg tablet 20 mg PO DAILY 11/06/24 11/06/24 History Patient History Social History Smoking Status: Former smoker Smoking End Date: 5 years ago; Hx Alcohol Use: Yes Alcohol type: wine Hx Substance Use: No Preferred Language: Estonian Communication Ability: Effective Steward/Stewardess Required: No Beliefs That Will Affect Care: None Current Living Situation: Spouse Other Information That Helps Us Care for You: No Feels Safe at Home: Yes Safety Concerns: Feels Safe At This Time Assistive Devices: Cane, Denture - Upper, Denture - Lower and Glasses Review of Systems Review of Systems: All systems reviewed & are unremarkable except as noted in Subjective Physical Exam Constitutional: well nourished and + ill appearing; no acute distress Respiratory: no respiratory distress, no labored breathing and no retractions Auscultation: no crackles, no rales, no rhonchi and no wheezes Cardiovascular: Rate/Rhythm: + irregularly irregular Heart Sounds: normal S1, normal S2 and + murmur (3/6 GORAN heard best at the right second intercostal space) Extremities: no edema (Bilateral pretibial stasis changes) Gastrointestinal (Abdomen): Inspection/Auscultation: normal bowel sounds; abdomen not distended Percussion/Palpation: abdomen nontender and no guarding Neurologic: CN's II-XI intact bilaterally and moves all extremities; no focal motor deficits Results & Data Vital Signs (Past 12 Hours) Vital Signs Temp Pulse Pulse Resp BP Pulse Ox O2 Del Method 11/07/24 08:17 36.5 C 80 21 120/81 95 Nasal Cannula 11/07/24 03:24 36.4 C L 92 H 12 154/100 H 92 Nasal Cannula 11/07/24 00:01 91 H 11/06/24 23:35 36.4 C L 99 H 22 151/97 H 92 Nasal Cannula 11/06/24 23:30 Nasal Cannula 11/06/24 22:00 92 H 20 106/78 92 Nasal Cannula O2 Flow Rate 11/07/24 08:17 5 11/07/24 03:24 5 11/07/24 00:01 11/06/24 23:35 4 11/06/24 23:30 4 11/06/24 22:00 2 Laboratory Results Cardiac Enzymes 11/06/24 11/07/24 Range/Units 19:54 05:44 AST 29 (13-39) U/L Troponin I High Sens 8.2 7.8 (0-14) pg/ml Coagulation 11/06/24 Range/Units 19:57 PT 11.9 (9.0-12.0) Seconds APTT 29 (21-31) Seconds CBC 11/06/24 11/07/24 Range/Units 19:54 05:44 WBC 4.51 L 7.58 (4.8-10.8) K/ul RBC 5.09 4.70 (4.20-5.40) M/uL Hgb 15.8 14.4 (12.0-16.0) g/dl Hct 45.2 41.8 (37.0-47.0) % Plt Count 163 138 (130-400) K/uL Neut # (Auto) 2.90 6.06 (1.40-6.50) K/uL Lymph # (Auto) 1.07 L 0.83 L (1.20-3.40) K/uL [place] # (Auto) 0.44 0.64 H (0.11-0.59) K/uL Eos # (Auto) 0.04 0.00 (0.00-0.50) K/uL Baso # (Auto) 0.03 0.02 (0.00-0.20) K/uL Comprehensive Metabolic Panel 11/06/24 11/07/24 Range/Units 19:54 05:44 Sodium 137 137 (136-145) mmol/L Potassium 4.1 4.1 (3.5-5.1) mmol/L Chloride 106 106 (98-107) mmol/L Carbon Dioxide 20 L 24 (21-32) mmol/L BUN 13 16 (6-23) mg/dl Creatinine 0.97 0.92 (0.6-1.2) mg/dl Glucose 155 H 150 H (70-99(Fasting)) mg/dl Calcium 9.2 9.0 (8.6-10.3) mg/dl AST 29 (13-39) U/L ALT 16 (7-52) U/L Alkaline Phosphatase 62 (34-104) U/L Total Protein 7.9 (6.0-8.3) gm/dl Albumin 3.7 (3.4-5.0) gm/dl Intake and Output 11/06/24 11/07/24 11/07/24 22:59 06:59 14:59 Other: Weight 108.5 kg 108.5 kg 108.5 kg Weight Measurement Method Built in Bedscale Built in Bedscale Patient Weight 11/08/24 06:59 Weight 108.5 kg
[2024-11-07] MEDS ORDERED: ePHEDrine sulfate 50 MG/ML AMP IV PRN (11:10)
[2024-11-07] MEDS ORDERED: HYDROmorphone INJ 1 MG/ML SYRINGE IV PRN (11:10)
[2024-11-07] MEDS ORDERED: ONDANSETRON INJ 2 MG/ML 2 ML VIAL IV PRN (11:10)
[2024-11-07] MEDS ORDERED: fentaNYL citrate PF 100 MCG/2 ML VIAL IV PRN (11:10)
[2024-11-07] MEDS ORDERED: ATROPINE SULFATE 0.1 MG/ML 10ML SYR IV PRN (11:10)
[2024-11-07] MEDS: ceFAZolin 2000MG 2,000 MG/15 ML SYR IV SCH (12:20)
[2024-11-07] MEDS ORDERED: HYDROmorphone INJ 2 MG/ML SYR/VIAL ONE (12:25)
[2024-11-07] MEDS: TRANEXAMIC ACID / 0.7% NACL 1,000 MG/100 ML BAG IV SCH (12:30)
--- NOTE | 2024-11-07 12:39 | Hospitalist Progress Note ---
Date of Service November 07, 2024 Assessment & Plan (1) Closed left hip fracture: (2) Chronic heart failure with preserved ejection fraction: (3) Atrial fibrillation with controlled ventricular response: (4) Severe pulmonary hypertension: (5) Severe mitral valve stenosis: (6) Moderate mitral regurgitation: Plan 74-year-old female from [place] visiting [place] and the son is surgeon in our hospital with past medical history significant for hypertension, CHF is status post fall and left hip fracture. Patient says she has chronic pain in the left hip. Lately walking with a cane and has difficulty ambulating.. Patient says she can walk about a block slowly but family does not think so. She was trying to sit in a chair today when she slipped and fell down in the sitting position and hurt her left hip. Did not hit her head. No loss of consciousness. Having lot of pain in the left hip region. Denies any headache. No dizziness. She has cataract in left eye and vision is not that great in that eye. No headache. No runny nose or sore throat. No recent fevers. Denies chest pain. No shortness of breath. No nausea. No abdominal pain. Normal bowel and bladder movements. Currently hemodynamics okay. Closed left hip fracture Status post mechanical fall without any history of loss of consciousness without any warning Appreciate Ortho input and recommendation Appreciate cardiology input and recommendationshe is considered high perioperative cardiovascular risk due to cardiac conditions as stated below. she was cleared for proposed urgent surgery by the what job titles mean with optimization of expected acceptable risk. Remains hemodynamically stable this morning without any cardiac and respiratory symptoms Recommended not to have any spinal anesthesia Atrial fibrillation with controlled ventricular rate EKG is showing atrial fibrillation Troponins are unremarkable Will monitor on telemetry Appreciate cardiology input and recommendation Continue carvedilol Significant valvular heart disease Has moderate aortic stenosis, severe mitral valve stenosis and moderate mitral regurgitation Severe pulmonary hypertension as well Echo of the heart showed- A-fib with controlled ventricular response, moderate concentric LVH, LVEF 60 to 65%, left atrium is severely dilated, aortic valve sclerosis with moderate stenosis, severe mitral annular calcification with severe mitral stenosis and moderate mitral regurgitation there is mild tricuspid regurgitation as well the estimated systolic pulmonary pressure is 71 mmHg. Dilated inferior vena cava with collapsibility with sniff indicates an elevated right atrial pressure of 50 mmHg Chronic heart failure with preserved EF History of CHF No evidence of acute CHF during this admission Does not require any Lasix at this time History of hypertension Continue Coreg and lisinopril hydrochlorothiazide Will monitor DVT prophylaxis SCDs on right leg Further anticoagulation as per Ortho Disposition Telemetry Full code. Admission and Anticipated Discharge Date Admission Date: November 06, 2024 Subjective 11/07/2024 The patient was seen and examined in the telemetry unit She was admitted with a mechanical fall and fracture of the left hip Noted to have atrial fibrillation on admission Denies any chest pain and/or palpitation Complains pain in the left hip with any movement of the left lower extremity Review of Systems Review of Systems: All systems reviewed and unremarkable except as noted below Physical Exam Physical Exam: Lying in bed with acute distress secondary to left hip pain Constitutional: well developed, well nourished, + ill appearing and + obese Eyes: PERRL, conjunctivae normal, anicteric sclerae ENMT: external ear and nose normal, oropharynx normal Neck: trachea midline, no thyromegaly Respiratory: no respiratory distress Auscultation: lungs clear to auscultation bilaterally Cardiovascular: Rate/Rhythm: + irregularly irregular; not tachycardic Heart Sounds: normal S1, normal S2 and + murmur Extremities: + edema (Trace edema bilaterally) Gastrointestinal (Abdomen): Inspection/Auscultation: normal bowel sounds; abdomen not distended Percussion/Palpation: abdomen soft; abdomen nontender Musculoskeletal: Shortening of the left lower extremity which is externally rotated. Any movement causes pain in the leg hip Neurologic: normal touch/pain/proprioception and moves all extremities (Less movement with the left lower extremity due to fracture) Psychiatric: A+Ox3, euthymic affect Results & Data Results & Data Vital Signs (Past 12 Hours) Vital Signs Temp Pulse Resp BP Pulse Ox O2 Del Method O2 Flow Rate 11/07/24 10:50 36.5 C 80 18 123/88 95 Nasal Cannula 4 11/07/24 08:17 36.5 C 80 21 120/81 95 Nasal Cannula 5 11/07/24 03:24 36.4 C L 92 H 12 154/100 H 92 Nasal Cannula 5 Laboratory Results Short CBC 11/06/24 11/07/24 Range/Units 19:54 05:44 WBC 4.51 L 7.58 (4.8-10.8) K/ul Hgb 15.8 14.4 (12.0-16.0) g/dl Hct 45.2 41.8 (37.0-47.0) % Plt Count 163 138 (130-400) K/uL BMP 11/06/24 11/07/24 19:54 05:44 Sodium 137 137 Potassium 4.1 4.1 Chloride 106 106 Carbon Dioxide 20 L 24 BUN 13 16 Creatinine 0.97 0.92 Glucose 155 H 150 H Calcium 9.2 9.0 Liver Function 11/06/24 Range/Units 19:54 Total Bilirubin 1.1 H (0.2-1.0) mg/dl AST 29 (13-39) U/L ALT 16 (7-52) U/L Alkaline Phosphatase 62 (34-104) U/L Albumin 3.7 (3.4-5.0) gm/dl Medications Administered Current Inpatient Medications Atropine Sulfate (Atropine Sulfate 0.1 Mg/Ml 10ml Syr) 0.5 mg IV Q1M PRN PRN Reason: PACU Use-HR<40 &/or Bradycardi Stop: 11/07/24 19:10 Carvedilol (Carvedilol 25 Mg Tab) 25 mg PO BID [facility] Stop: 12/07/24 08:59 Last Admin: 11/07/24 07:59 Dose: 25 mg Ephedrine Sulfate (Ephedrine Sulfate 50 Mg/Ml Amp) 5 mg IV Q5M PRN PRN Reason: PACU Use Only-SBP<90 mmHg Stop: 11/07/24 19:10 Fentanyl Citrate (Fentanyl Citrate Pf 100 Mcg/2 Ml Vial) 25 mcg IV Q5M PRN PRN Reason: PACU Use Only-Pain Stop: 11/07/24 19:12 Hydrochlorothiazide (Hydrochlorothiazide 25 Mg Tab) 25 mg PO DAILY [facility] Stop: 12/07/24 08:59 Last Admin: 11/07/24 07:59 Dose: 25 mg Hydromorphone HCl (Hydromorphone Inj 0.5 Mg/0.5 Ml Syr) 0.25 mg IV Q4H PRN PRN Reason: Moderate Pain (Scale 4, 5, 6) Stop: 11/20/24 23:15 Hydromorphone HCl (Hydromorphone Inj 0.5 Mg/0.5 Ml Syr) 0.5 mg IV Q4H PRN PRN Reason: Severe Pain (Scale 7, 8, 9,10) Stop: 11/20/24 23:15 Last Admin: 11/07/24 08:01 Dose: 0.5 mg Hydromorphone HCl (Hydromorphone Inj 1 Mg/Ml Syringe) 0.25 mg IV Q5M PRN PRN Reason: PACU Use Only-Pain Stop: 11/07/24 19:12 Sodium Chloride (Nss) 1,000 mls @ 50 mls/hr IV .Q20H AFSHAN Stop: 11/09/24 23:15 Last Admin: 11/07/24 00:04 Dose: 50 mls/hr Tranexamic Acid (Tranexamic Acid / 0.7% Nacl) 1,000 mg in 100 mls @ 600 mls/hr IV 0600 AFSHAN Stop: 11/07/24 18:00 Cefazolin Sodium (Ancef 2000mg) 2,000 mg in 15 mls @ 3.75 mls/min IV PREOP AFSHAN; Protocol Stop: 11/07/24 18:00 Lisinopril (Lisinopril 20 Mg Tab) 20 mg PO DAILY AFSHAN Stop: 12/07/24 08:59 Last Admin: 11/07/24 07:59 Dose: 20 mg Nitroglycerin (Nitroglycerin Sl 0.4 Mg/Tab Tab) 0.4 mg SL Q5M PRN PRN Reason: Chest Pain Stop: 12/06/24 23:15 Ondansetron HCl (Ondansetron Inj 2 Mg/Ml 2 Ml Vial) 4 mg IV Q6H PRN PRN Reason: Nausea And Vomiting Stop: 12/06/24 23:20 Last Admin: 11/07/24 00:53 Dose: 4 mg Ondansetron HCl (Ondansetron Inj 2 Mg/Ml 2 Ml Vial) 4 mg IV ONCE PRN PRN Reason: PACU Use Only-Nausea/Vomiting Stop: 11/07/24 19:12 Polyethylene Glycol (Polyethylene (Miralax) 17 Gm Pack) 17 gm PO DAILY PRN PRN Reason: Constipation Stop: 12/06/24 23:15 Patient did not like going on any of the patient I called the
[2024-11-07] MEDS: ceFAZolin 1000MG 1,000 MG/7.5 ML SYR IV ONE (13:20)
--- NOTE | 2024-11-07 14:04 | Electrocardiogram Report ---
Test Reason : Blood Pressure : */* mmHG Vent. Rate : 80 BPM Atrial Rate : 60 BPM P-R Int : * ms QRS Dur : 116 ms QT Int : 422 ms P-R-T Axes : * -34 59 degrees QTcB Int : 486 ms Atrial fibrillation Left axis deviation Incomplete right bundle branch block Minimal voltage criteria for LVH, may be normal variant Anteroseptal infarct , age undetermined Abnormal ECG No previous ECGs available Confirmed by Drew Silva ([id number]) on 11/07/2024 2:04:18 PM Referred By: REFERRED SELF Confirmed By: Drew Silva
[2024-11-07] MEDS ORDERED: PHENYLEPHRINE HCL 25 MG/250 ML NSS IV ONE (15:06)
[2024-11-07] MEDS ORDERED: ALBUMIN HUMAN 5% 12.5 GM/250 ML VIAL IV ONE ×3 (15:06→15:47)
[2024-11-07] MEDS ORDERED: ACETAMINOPHEN 1000 MG/100 ML IV IV ONE (15:07)
[2024-11-07] MEDS ORDERED: SUGAMMADEX SODIUM 200 MG/2 ML VIAL IV ONE (15:58)
[2024-11-07] MEDS: LIDOCAINE 1%/EPINEPHRINE 1:100,000 50 ML VIAL ONE ×2 (15:59→16:00)
[2024-11-07] MEDS: BUPIVACAINE 0.5 % 5 MG/1 ML MPF 30ML VIAL ONE (15:59)
[2024-11-07] MEDS ORDERED: NOREPINEPHRINE BITARTRATE 1 MG/ML 4 ML VIAL IV ONE (16:04)
--- NOTE | 2024-11-07 16:29 | Post Operative Brief Note ---
Immediate Post Op Note Date of Surgery November 07, 2024 Pre & Post Diagnosis Operation Date: 11/07/24 07:00 Pre-Op Diagnosis: Left Hip Fracture Post-Op Diagnosis: Left Hip Fracture I identified the patient and participated in the time-out.: Yes Procedure Operation Date: 11/07/24 07:00 Actual Procedures p Open Reduction Internal Fixation Left Hip Fracture(Left) - Silver Fitch MD Surgeon Silver Fitch MD Breastfeeding Program Coordinator Oral Beard PA-C (No fellow avail) Estimated Blood Loss 100 Findings Consistent with Post-Op Diagnosis Fluids 2200 cc Drains Gutierrez Catheter Anesthesia Type General Complications none
--- NOTE | 2024-11-07 16:30 | Operative Report ---
Post Operative Report Pre & Post Diagnosis Operation Date: 11/07/24 07:00 Pre-Op Diagnosis: Left Hip Fracture Post-Op Diagnosis: Left Hip Fracture I identified the patient and participated in the time-out.: Yes Procedure Operation Date: 11/07/24 07:00 Actual Procedures p Open Reduction Internal Fixation Left Hip Fracture(Left) - Silver Fitch MD Surgeon Silver Fitch MD Customs Consultant Oral Beard PA-C (No fellow avail) Estimated Blood Loss 100 Findings See Below Comminuted displaced 3-part Inter-trochanteric hip fracture, reverse obliquity, with severe hip OA Fluids 2200 cc Specimens n/a Anesthesia Type General Complications none Indications The patient is a 74 year old female who sustained a left hip fracture from a ground level fall. The patients treatment options of conservative versus surgical intervention were discussed. Since the patient was an ambulatory prior to the injury and to avoid the risks of bed sores, pulmonary complications, and to give the best chance for ambulation, I recommended surgery. The patient understands the risks of surgery, which include but are not limited to: bleeding, infection, re-operation, damage to nerves and arteries, continued pain, failure of the hardware, mal-union, non-union, DVT, and . In addition, the patient is aware of the 20-30% morbidity associated with hip fracture for up to 1 year following a hip fracture. The patient understands all these instructions and explanations; all their questions have been satisfactorily addressed. The patient has elected to proceed with surgery ORIF left hip fracture and the informed consent was signed. Description of Procedure Oral Beard PA-C is assisting with positioning and closure due to fellow not available. IMPLANTS: 1) 11 x 400 mm Long Troch nail (Synthes). 2) 11 x 95 mm Screw screw. 3) 5 x (58 & 54) mm Locking screw. Procedure: The patient was taken to the Operating Room and placed in the supine position on the fracture table after general anesthesia was administered. A multidisciplinary time-out was performed identifying my initials on the left lower limb as the correct and operative limb. Prior to the incision being made, 2 grams of intravenous Ancef were given. Fluoroscopy was brought in to ensure adequate x-rays images could be obtained. A reduction was performed with traction, adduction, and internal rotation of the operative limb. Once the best reduction was confirmed with Fluro, seeing the reverse obliquity fracture it was decided that I would have to open to gain a better reduction and would need a long nail. The left lower extremity was prepped in the standard fashion. The trochanter was marked as was the planned incision and trajectory of the femoral screw. All 3 incisions were injected with a 50:50 mixture of 1% Lidocaine plain and 0.5% Bupivacaine with epinephrine for a total of 20cc. The planned incision proximal to the greater trochanter was made and carried down through the Tensor Fascia Cuca to expose the tip of the greater trochanter and the starting position. A starting guide wire was placed by hand, and the starting awl was used to initiate the entry hole and allow exchange for a long guide wire. The distal location of the guide wire was confirmed in the AP and lateral projections. The length of the gabo was measured for 400 mm. The entry reamer was used to create the entry hole for the implant. A size 11 was selected. The shaft was sequentially reamed to from 10-12.5mm. The implant was then inserted without difficulty. A second incision was made for placement of the femoral screw. These were placed through the aiming guide while elevating the shaft and using a Lowery to reduce the anterior aspect of the femoral neck. The traction was released. The screw was measured and prepared with drilling the outer cortex and the step drill. The screw was placed and compression applied with good alignment of the medial cortex on the AP and and anterior/posterior cortex on the lateral. It was locked in place. The distal locking screws were placed with perfect [place] technique. The distal incision was made, followed by incising the IT band. The long oblong hole was filled first followed by the more proximal screw hole in the standard fashion. Final x-rays were obtained showing TAD of less than 25mm. The wounds were copiously irrigated. The Tensor Fascia Cuca and IT Band were closed with 0 Vicryl. The deep fat was closed with O Vicryl. The subcutaneous tissue was closed with 3-0 Vicryl. The skin was closed with stacey. The incisions were covered with Xeroform, 4x4s, and Tegaderm. The patient was transferred to her hospital bed, extubated, and taken to the ICU in stable condition, due to her multiple medical problems and low BP. The sponge and needle counts were correct. Post-op Instructions: The patient was re-admitted to the Hospitalist service to ICU with Solar Energy Engineer consult. The patient will be WBAT with a walker. The patient will be seen by PT/OT. Labs will be checked in the am. DVT prophylaxis will be with TEDs, mechanical devices and Eliquis will be started. I attest to the content of the Intraoperative Record and any orders documented therein. Any exceptions are noted below.
--- NOTE | 2024-11-07 16:38 | Operative Report ---
Post Operative Report Pre & Post Diagnosis Operation Date: 11/07/24 07:00 Pre-Op Diagnosis: Left Hip Fracture Post-Op Diagnosis: Left Hip Fracture I identified the patient and participated in the time-out.: Yes Procedure Operation Date: 11/07/24 07:00 Actual Procedures p Open Reduction Internal Fixation Left Hip Fracture(Left) - Silver Mariam Fitch MD Surgeon Dr Fitch Bottom Liner Oral Beard PA-C (No fellow avail) Estimated Blood Loss 100 Findings Consistent with Post-Op Diagnosis Specimens none Description of Procedure Pt was taken to operating room and properly positioned for procedure. Refer to anesthesia's note for anesthesia used. Pt was given pre-op antibiotics. Prepped and draped in sterile fashion. I was present during the entire case and assisted with positioning, instrumentation, closure and dressings. Please see surgeon's op report for further detail. Pt was awake and transferred to PACU in stable co ndition I attest to the content of the Intraoperative Record and any orders documented therein. Any exceptions are noted below.
[2024-11-07] MEDS: NOREPINEPHRINE/D5W 4 MG/250 ML PLCT IV SCH (16:45)
--- NOTE | 2024-11-07 16:52 | Critical Care Consultation ---
Date of Consultation November 07, 2024 Assessment & Plan (1) Atrial fibrillation: (2) Closed fracture of left hip: (3) Chronic heart failure with preserved ejection fraction: (4) Severe pulmonary hypertension: (5) Atrial fibrillation with controlled ventricular response: (6) Severe mitral valve stenosis: (7) Shock circulatory: Plan Reason Critically Ill: 74-year-old female, mother of surgeon Dr. Lyman admitted to the hospital for hip fracture s/p repair, was hypotensive in the PACU sent to the ICU for further care Past medical history: Severe mitral stenosis, mild aortic stenosis Neuro - [facility]: Negative Cardiac - 2D echo 11/07/2024: EF 60-65%, moderate concentric LVH, LA severely dilated, mild to moderate aortic stenosis, PASP 71 mmHg --Shock Likely postanesthesia BNP 625 Continue with vasopressor support to keep MAP greater than 65 Avoid hypotension given the severe pulmonary hypertension -- Severe pulmonary hypertension Type II likely from severe mitral stenosis as well as aortic stenosis Try to avoid hypotension but also avoid prevent severe afterload increase --New onset A-fib [id number] 2 Anticoagulation has not been started --History of hypertension On carvedilol, hydrochlorothiazide as well as losartan at home Respiratory - -- Acute hypoxic respiratory failure Likely from mild pulmonary edema as well as dependent atelectasis O2 supplementation to keep oxygen saturation between 90-92% Incentive spirometry --Ex-smoker Approximately [id number] smoking history Quit 3 years ago Recommend PFT as an outpatient GI - -- No acute issues RENAL/LYTES - -- No acute issues Monitor BUNs/creatinine ENDO - -- ICU hypoglycemia protocol HEME - -- Monitor H&H ID - -- No source of infection Musculoskeletal - -- Acute left intertrochanteric fracture S/p surgery 11/07/2024 --Prophylaxis VTE: IPC GI: Pantoprazole Lines: Right IJ, left radial, Gutierrez Diet: N.p.o. Plan: Patient got 1500 of crystalloids and final of colloids in the OR Will give another 250 mL of colloid. Add vasopressin to the regimen. Will get random cortisol. If it is low then we will give hydrocortisone. Try to avoid hypotension especially given the severe pulmonary hypertension which the patient has which is likely valvular. If there is decline in the patient's clinical status especially to the degree that we have to think about intubation then I would like the patient to be transferred to a tertiary center where they can think about possible valve repair. Will need okay from orthopedic surgery so that we can start full anticoagulation given the new onset A-fib which has been there for at least 24 hours now Case was discussed with patient's son at bedside. I have personally spent 65 minutes of critical care time in the direct management of this patient. This is a life/limb threatening event. This includes time spent evaluating patient, direct bedside care, chart review, placing orders, interpretation of diagnostic studies, discussion with consultants, patient, and family members, as well as other required patient management activities. This time is exclusive of all separately billable procedures, and teaching time and separate from and in addition to any other critical care service time. History of Present Illness Attending Physician: Cornelia Lubin MD History of Present Illness 74-year-old female, mother of surgeon Dr. Lyman admitted to the hospital for hip fracture s/p repair, was hypotensive in the PACU sent to the ICU for further care Past medical history: Severe mitral stenosis, mild aortic stenosis, new onset A- fib, hypertension Signout was given by the anesthesiologist Patient had approximately 100 mL of blood loss during the surgery. She was on phenylephrine during the surgery Requiring Levophed in the PACU up to 0.15 At the time of examination in the ICU patient's systolic blood pressure was in the high 80s to low 90s, MAP was in the low 60s. Gradually Levophed was titrated up and vasopressin was added She was awake alert oriented answering questions appropriately Complained of some soreness at the site of the left hip Did complain of lower back stiffness which she has issues from before Denied any chest pain, no shortness of breath She was saturating 98-99% on 4 L oxy mask. Denies any blurry vision, no headache Has been afebrile Social history: Approximately [id number] smoking history, quit at the age of 71 Allergies Allergy/AdvReac Type Severity Reaction Status Date / Time Penicillins Allergy Itching Verified 11/06/24 23:26 Home Medications Medication Instructions Recorded Confirmed Type carvedilol 25 mg tablet 25 mg PO BID 11/06/24 11/06/24 History hydrochlorothiazide 25 mg tablet 25 mg PO DAILY 11/06/24 11/06/24 History lisinopril 20 mg tablet 20 mg PO DAILY 11/06/24 11/06/24 History Patient History Medical History Aortic stenosis Social History Smoking Status: Former smoker Smoking End Date: 5 years ago; Hx Alcohol Use: Yes Alcohol type: wine Hx Substance Use: No Preferred Language: Spanish Communication Ability: Effective Retail Client Solutions Analyst Required: No Beliefs That Will Affect Care: None Current Living Situation: Spouse Other Information That Helps Us Care for You: No Feels Safe at Home: Yes Safety Concerns: Feels Safe At This Time Assistive Devices: Cane Review of Systems 2 Review of Systems: All systems reviewed & are unremarkable except as noted in HPI & below Physical Exam 2 Physical Exam: Constitutional: No acute distress HEENT: EOMI, PERRLA Respiratory system: Good air entry bilaterally, no wheeze, no rhonchi, positive crackles bilateral lower lobes, more on the left side CVS: S1-S2 positive, positive 3 out of 6 systolic murmur appreciated best at apex Abdomen: Soft, nontender, nondistended, positive bowel sounds x4, obese Extremities: +1 pulses bilaterally radialis/ dorsalis pedis, no cyanosis, +1 pitting edema bilateral lower extremity Neuro: Awake alert oriented x3 Psych: Normal mood and affect G/U: Positive Gutierrez Skin: no rashes, warm and dry Lymphatic: no cervical or axillary lymphadenopathy Results & Data Results & Data Vital Signs (Past 12 Hours) Vital Signs Temp Pulse Resp BP Pulse Ox O2 Del Method O2 Flow Rate 11/07/24 10:50 36.5 C 80 18 123/88 95 Nasal Cannula 4 11/07/24 08:17 36.5 C 80 21 120/81 95 Nasal Cannula 5 Laboratory Results 11/07/24 05:44 11/07/24 05:44 Coding Level of Care Code 09113 CRITICAL CARE 1ST 30-74M Diagnoses Atrial fibrillation I48.91 Atrial fibrillation type: unspecified Closed fracture of left hip S72.002A Encounter type: initial encounter Chronic heart failure with preserved ejection fraction I50.32 Severe pulmonary hypertension I27.20 Atrial fibrillation with controlled ventricular response I48.91 Severe mitral valve stenosis I05.0 Shock circulatory R57.9 (1) Atrial fibrillation Atrial fibrillation type: unspecified Qualified Code(s): I48.91 - Unspecified atrial fibrillation (2) Closed fracture of left hip Encounter type: initial encounter Qualified Code(s): S72.002A - Fracture of unspecified part of neck of left femur, initial encounter for closed fracture
[2024-11-07] MEDS ORDERED: STAT IV Infusion **Titration per Protocol STA (17:03)
--- NOTE | 2024-11-07 17:08 | Anesthesiology Progress Note ---
Date of Service November 07, 2024 Anesthesia Post Procedure Vital Signs Vital Signs: Temp Pulse Pulse Resp BP BP Pulse Ox 11/07/24 10:50 36.5 C 80 18 123/88 95 11/07/24 08:17 36.5 C 80 21 120/81 95 11/07/24 03:24 36.4 C L 92 H 12 154/100 H 92 11/07/24 00:01 91 H 11/06/24 23:35 36.4 C L 99 H 22 151/97 H 92 11/06/24 23:30 11/06/24 22:00 92 H 20 106/78 92 11/06/24 19:48 36.5 C 83 22 147/86 H 93 O2 Del Method O2 Flow Rate 11/07/24 10:50 Nasal Cannula 4 11/07/24 08:17 Nasal Cannula 5 11/07/24 03:24 Nasal Cannula 5 11/07/24 00:01 11/06/24 23:35 Nasal Cannula 4 11/06/24 23:30 Nasal Cannula 4 11/06/24 22:00 Nasal Cannula 2 11/06/24 19:48 Room Air Pain Intensity Left Hip: Pain Intensity: 1 Transfer of Care Handoff Completed per policy Notes Mental Status: alert / awake / arousable Patient Amnestic to Procedure: Yes Nausea / Vomiting: adequately controlled Pain: adequately controlled Airway Patency, RR, SpO2: stable & adequate BP & HR: stable & adequate and see Notes below Hydration State: stable & adequate Anesthetic Complications: no major complications apparent and Pt Satisfied with anesthetic care Notes: 74 y/o F with hx of CHF (EF 60-65%), htn, mod , severe MS, who presented with left hip fx for repair. pre induction a-line placed in left radial. Patient tolerated induction of GA well and remained stable during case on phenylephrine infusion. Patient received 500 cc albumin and 2 L crystalloid. Blood loss 100cc and pre op Hb wnl. Nearing end of procedure, vasopressor requirements increased likely 2nd to poor contractility in s/o severe stenotic valvular pathology and irregular rhythm, but cannot rule out decompensated CHF. Patient transitioned to norepi gtt and was weaned as tolerated. Patient extubated when criteria met and was immediately oriented and neurologically intact. Due to high vasopressor requirements, transferred to ICU for BP monitoring and vasopressor support. Hand off provided to ICU MD. ICU for further care.
[2024-11-07] MEDS: VASOPRESSIN 20 UNITS in SODIUM CHLORIDE 0.9% 100 ML IV SCH (17:18)
[2024-11-07] MEDS: ALBUMIN 5% 250 ML IV SCH (17:18)
[2024-11-07] MEDS: NOREPINEPHRINE/D5W 4 MG/250 ML IV ONE (17:20)
[2024-11-07 17:22] LABS: Basophils # (auto) 0.04 K/uL (0.00-0.20); Basophils % (auto) 0.3 %; Eosinophils # (auto) 0.02 K/uL (0.00-0.50); Eosinophils % (auto) 0.1 %; Hematocrit (blood only) 31.8 % (37.0-47.0); Immature Granulocytes # (auto) 0.12 K/uL (0.01-0.20); Immature Granulocytes % (auto) 0.8 %; Lymphocytes # (auto) 1.15 K/uL (1.20-3.40); Lymphocytes % (auto) 7.3 %; Mean Corpuscular Hemoglobin 31.3 pg (25.0-34.0); Mean Corpuscular Hgb Conc 34.6 g/dL (32.0-36.0); Mean Corpuscular Volume 90.3 fL (80.0-100.0); Mean Platelet Volume 10.6 fL (9.4-12.4); Monocytes # (auto) 1.56 K/uL (0.11-0.59); Monocytes % (auto) 9.9 %; Neutrophils # (auto) 12.86 K/uL (1.40-6.50); Neutrophils % (auto) 81.6 %; Platelet Count 161 K/uL (130-400); RDW Coefficient of Variation 13.5 % (11.5-14.5); RDW Standard Deviation 44.6 fL (36.4-46.3); Red Blood Count 3.52 M/uL (4.20-5.40); White Blood Count 15.75 K/ul (4.8-10.8)
[2024-11-07] MEDS: HYDROCORTISONE SOD 100 MG in SYRINGE 0 ML IV STA (17:28)
--- NOTE | 2024-11-07 17:35 | Procedure Note ---
Procedure Note Date of Service November 07, 2024 Procedure: Inserting ultrasound-guided central line haul truck driver: Dr. Suhail Peter Indication: Hypotension Consent: Emergent consent was applied but verbal consent was also obtained from the patient as well as patient's son Anesthesia: 1% lidocaine without epinephrine local. Procedure: Consent was verified and timeout performed. Appropriate imaging studies were reviewed prior to the procedure. Under aseptic and sterile condition, right IJ vein was accessed under direct ultrasound guidance. Guidewire was confirmed to be within the lumen of vein with the help of ultrasound. Catheter was introduced via Seldinger technique. Guide a wire was removed. Good non-pulsatile blood flow was appreciated from all the ports. The catheter was placed at 16 cm and sutured in place. BioPatch was applied to the catheter and a sterile Tegaderm dressing was applied over the catheter with careful attention to sterility. Lung sliding was appreciated post procedure with the help ultrasound. Chest x-ray to follow Patient tolerated the procedure well. Blood loss: Less than 1 cc Complications: None [facility] [place] Procedure Codes (Charges) Tubes, Drains, and Vasc Access Procedure 1: Tubes, Drains, and Vasc Access: [id number] Place catheter in vein superior or inferior vena cava Procedure 2: Tubes, Drains, and Vasc Access: [id number] Ultrasound Guidance For Vascular Coding CPT Codes Tubes, Drains, and Vasc Access - Tubes, Drains, and Vasc Access: [id number] Place catheter in vein superior or inferior vena cava ([id number]) Tubes, Drains, and Vasc Access - Tubes, Drains, and Vasc Access: [id number] Ultrasound Guidance For Vascular ([id number]) Additional Codes Date of Service ([facility].[email or web address])
--- NOTE | 2024-11-07 18:35 | XRay Report ---
Chest radiograph, one view. History: Follow-up exam. No additional history provided. Comparison: None. Findings: Right-sided central venous catheter with tip projecting over the expected level of the mid superior vena cava. Prominent main pulmonary artery silhouette. Calcified atherosclerotic changes thoracic aorta. Mild obscuration descending thoracic aorta. Right costophrenic angle not included on this exam. Poorly defined left costophrenic angle. Poorly defined right heart border. Prominent pulmonary vasculature is mild diffuse increased reticular markings. Linear band density right perihilar lung field likely representing subsegmental atelectasis. Impression: 1. Uncomplicated right central venous catheter. 2. Prominent central pulmonary vasculature with nonspecific diffuse mild increased reticular markings. Vascular congestion not excluded. Inflammatory or infectious pneumonitis is not excluded. 3. Nonspecific likely bibasilar subsegmental atelectasis left greater than right. Electronically signed by Tyler Cummings 11-07-2024 6:34 PM
[2024-11-07] MEDS: Heparin IV Adult Wt-Based Low-Dose *NO* INITIAL Bolus Protocol IV STA (18:45)
[2024-11-07] MEDS: STAT IV Infusion **Titration per Protocol STA (18:45)
[2024-11-07] MEDS: HEPARIN 25000 UNIT/500 ML D5W 25,000 UNITS/500 ML BAG IV SCH (18:48)
[2024-11-07] MEDS: METOCLOPRAMIDE HCL INJ 5 MG/ML 2 ML VIAL IV ONE (19:12)
[2024-11-07 19:30] LABS: INR 1.3 (0.9-1.1); Partial Thromboplastin Time 28 Seconds (21-31); Prothrombin Time 13.5 Seconds (9.0-12.0)
[2024-11-07 19:35] LABS: Albumin Globulin Ratio 1.1 (0.9-2); BUN Creatinine Ratio 15.6 (10-20); Bilirubin,Total 1.9 mg/dl (0.2-1.0); Calcium 8.1 mg/dl (8.6-10.3); Creatinine Clr Calc Pharmacy 56.5 ml/min; Globulin 2.9 gm/dl (2.5-4.0)
[2024-11-07] MEDS: CALCIUM GLUCONATE 1,000 MG/60 ML BAG IV SCH (20:02)
[2024-11-07] MEDS ORDERED: APIXABAN 2.5 MG TAB PO SCH (21:00)
[2024-11-07] MEDS: ALBUMIN 5% 250 ML IV ONE (21:11)
[2024-11-07] MEDS: ACETAMINOPHEN 1,000 MG/100 ML VIAL IV PRN (23:00)
[2024-11-08] MEDS: HYDROCORTISONE SOD 50 MG in SYRINGE 0 ML IV SCH (00:38)
[2024-11-08] MEDS: LACTATED RINGER'S 250 ML IV ONE (01:31)
[2024-11-08] MEDS: MAGNESIUM SULFATE / D5W 1 GM/100 ML BAG IV SCH (04:06)
[2024-11-08 04:31] LABS: iSTAT Art Bld Gas pCO2 Correct 29 mmHg (35-46); iSTAT Art Bld Gas pH Corrected 7.441 (7.35-7.45); iSTAT Arterial Blood Gas HCO3 20 meg/L (19-24); iSTAT Arterial Blood Gas pCO2 30 mmHg (35-46); iSTAT Arterial Blood Gas pH 7.43 (7.35-7.45); iSTAT Arterial Blood Gas pO2 135 mmHg (80-95); iSTAT Arterial Blood Gas pO2 C 132; iSTAT Carbon Dioxide 21 mmol/L (24-31); iSTAT Hematocrit 22 % (37-47); iSTAT Hemoglobin 7.5 g/dl (12.0-16.0); iSTAT Potassium 3.9 mmol/L (3.3-5.0); iSTAT Sample Type Arterial; iSTAT Site Art Line; iSTAT Sodium 138 mmol/L (135-144); iSTAT SpO2 100
[2024-11-08 04:31] LABS: iSTAT Art Bld Gas pCO2 Correct 38 mmHg (35-46); iSTAT Art Bld Gas pH Corrected 7.364 (7.35-7.45); iSTAT Arterial Blood Gas HCO3 22 meg/L (19-24); iSTAT Arterial Blood Gas pCO2 38 mmHg (35-46); iSTAT Arterial Blood Gas pH 7.36 (7.35-7.45); iSTAT Arterial Blood Gas pO2 21 mmHg (80-95); iSTAT Arterial Blood Gas pO2 C 20; iSTAT Carbon Dioxide 23 mmol/L (24-31); iSTAT Hematocrit 21 % (37-47); iSTAT Hemoglobin 7.1 g/dl (12.0-16.0); iSTAT Potassium 3.7 mmol/L (3.3-5.0); iSTAT Sample Type Arterial; iSTAT Site Art Line; iSTAT Sodium 138 mmol/L (135-144); iSTAT SpO2 100
[2024-11-08 04:59] LABS: BUN Creatinine Ratio 17.4 (10-20); Calcium 8.2 mg/dl (8.6-10.3); Creatinine Clr Calc Pharmacy 56.5 ml/min; Magnesium 1.6 mg/dl (1.7-2.4); Potassium 3.9 mmol/L (3.5-5.1)
[2024-11-08 05:12] LABS: ANTI-Xa, UFH(UnfractionatedHep 0.47 IU/ml (0.3-0.7)
[2024-11-08 05:16] LABS: Hematocrit (blood only) 22.6 % (37.0-47.0); Hemoglobin 7.9 g/dl (12.0-16.0); Mean Corpuscular Hemoglobin 31.3 pg (25.0-34.0); Mean Corpuscular Volume 89.7 fL (80.0-100.0); Mean Platelet Volume 10.6 fL (9.4-12.4); Platelet Count 144 K/uL (130-400); RDW Coefficient of Variation 13.4 % (11.5-14.5); RDW Standard Deviation 44.1 fL (36.4-46.3); Red Blood Count 2.52 M/uL (4.20-5.40); White Blood Count 16.02 K/ul (4.8-10.8)
[2024-11-08 05:17] LABS: Basophils # (auto) 0.02 K/uL (0.00-0.20); Basophils % (auto) 0.1 %; Immature Granulocytes # (auto) 0.08 K/uL (0.01-0.20); Immature Granulocytes % (auto) 0.5 %; Lymphocytes # (auto) 1.66 K/uL (1.20-3.40); Lymphocytes % (auto) 10.4 %; Monocytes # (auto) 0.89 K/uL (0.11-0.59); Monocytes % (auto) 5.6 %; Neutrophils # (auto) 13.37 K/uL (1.40-6.50); Neutrophils % (auto) 83.4 %; RBC Morphology Unremarkable
--- NOTE | 2024-11-08 07:37 | Critical Care Progress Note ---
Date of Service November 08, 2024 Assessment & Plan (1) Atrial fibrillation: (2) Closed fracture of left hip: (3) Chronic heart failure with preserved ejection fraction: (4) Severe pulmonary hypertension: (5) Atrial fibrillation with controlled ventricular response: (6) Severe mitral valve stenosis: (7) Shock circulatory: (8) Ex-smoker: (9) Aortic stenosis: Plan Reason Critically Ill: 74-year-old female, mother of surgeon Dr. Lyman admitted to the hospital for hip fracture s/p repair, was hypotensive in the PACU sent to the ICU for further care Past medical history: Severe mitral stenosis, mild aortic stenosis Neuro - [facility] ICU: Negative Cardiac - 2D echo 11/07/2024: EF 60-65%, moderate concentric LVH, LA severely dilated, mild to moderate aortic stenosis, PASP 71 mmHg --Shock Multifactorial I think cardiac etiology with severe MS and moderate AAS is playing a role on top of pulmonary hypertension BNP 625 --> 471 Continue with vasopressor support to keep MAP greater than 65 Avoid hypotension given the severe pulmonary hypertension -- Severe pulmonary hypertension Type II likely from severe mitral stenosis as well as aortic stenosis Try to avoid hypotension but also avoid prevent severe afterload increase --New onset A-fib [id number] 2 Anticoagulation has not been started --History of hypertension On carvedilol, hydrochlorothiazide as well as losartan at home Respiratory - -- Acute hypoxic respiratory failure Likely from mild pulmonary edema as well as dependent atelectasis O2 supplementation to keep oxygen saturation between 90-92% Incentive spirometry --Ex-smoker Approximately [id number] smoking history Quit 3 years ago Recommend PFT as an outpatient GI - -- No acute issues RENAL/LYTES - --Urine output has not been great but her BUN/creatinine has been within normal limits Continue to monitor BUNs/creatinine ENDO - -- ICU hypoglycemia protocol HEME - -- Drop in hemoglobin Likely dilutional given the patient is 3 L positive ID - -- No source of infection Musculoskeletal - -- Acute left intertrochanteric fracture S/p surgery 11/07/2024 --Prophylaxis VTE: Heparin drip GI: Pantoprazole Lines: Right IJ, left radial, Gutierrez Diet: N.p.o. Plan: In/out: +3 L, urine output 545 mL Mixed venous from the central line showed a saturation of 34% Patient's blood pressure is very labile and whenever she goes into heart rate greater than 100 are systolic blood pressure goes into the 90s. She is very dependent on the atrial kick, most likely from the severe MS that she has. Although the patient has not been anticoagulated for 48 hours given the clinical deterioration I think the best step would be to start her on amiodarone drip to slow her heart rate. Digoxin 250 mcg will also be ordered for her. There has been drop in hemoglobin seems to be mostly dilutional given patient is 3 L positive Will repeat H&H at 12, if it is less than 7.5 will give 1 unit of PRBC Continue with hydrocortisone given the low-normal random cortisol Chest x-ray from today on personal review does not show any significant worsening compared to yesterday. She is saturating well on room air Think reasonable to give her little bit more fluids. Potassium and magnesium being replaced If there is any requirement of significant increase in Levophed and/or the need to add another vasopressor then I think it would be better for the patient to be intubated. Currently patient's mental status and respiratory rate is acceptable. I do think she has been of benefit from a tertiary center where they have cardiac surgery involved for possible intervention when it comes to her mitral as well as aortic valve. Case was discussed with cardiology on the phone and patient's son at bedside. I have personally spent 85 minutes of critical care time in the direct management of this patient. This is a life/limb threatening event. This includes time spent evaluating patient, direct bedside care, chart review, placing orders, interpretation of diagnostic studies, discussion with consultants, patient, and family members, as well as other required patient management activities. This time is exclusive of all separately billable procedures, and teaching time and separate from and in addition to any other critical care service time. Admission and Anticipated Discharge Date Admission Date: November 06, 2024 Subjective Patient seen and examined at bedside. No acute distress Overnight patient needed to 50 mL bolus of crystalloid and 250 mL of colloids She was on 0.35 of Levophed and 0.04 of vasopressin She was saturating 100% on 2 L nasal cannula, respirate was in the low to mid 20s. She denied any shortness of breath, no chest pain, no significant left hip pain Complained of generalized lethargy. No nausea since yesterday evening. Review of Systems 2 Review of Systems: All systems reviewed & are unremarkable except as noted in Subjective Physical Exam 2 Physical Exam: Constitutional: No acute distress HEENT: EOMI, PERRLA Respiratory system: Good air entry bilaterally, no wheeze, no rhonchi, positive crackles bilateral lower lobes, more on the left side CVS: S1-S2 positive, positive 4 out of 6 systolic murmur appreciated best at apex Abdomen: Soft, nontender, nondistended, positive bowel sounds x4, obese Extremities: +1 pulses bilaterally radialis/ dorsalis pedis, no cyanosis, +1 pitting edema bilateral lower extremity Neuro: Awake alert oriented x3 Psych: Normal mood and affect G/U: Positive Gutierrez Skin: no rashes, warm and dry Lymphatic: no cervical or axillary lymphadenopathy Results & Data Results & Data Vital Signs (Past 12 Hours) Vital Signs Temp Pulse Resp BP Pulse Ox Pulse Ox O2 Del Method 11/08/24 07:30 108/68 11/08/24 07:27 106 H 28 H 100 11/08/24 07:09 108 H 27 H 100 11/08/24 07:00 96/78 L 11/08/24 07:00 96/78 L 11/08/24 06:57 121 H 23 94 11/08/24 06:45 102/79 11/08/24 06:45 102/79 11/08/24 06:45 97 H 25 H 100 11/08/24 06:33 89 26 H 100 11/08/24 06:30 102/71 11/08/24 06:30 102/71 11/08/24 06:15 90/60 L 11/08/24 06:15 90/60 L 11/08/24 06:00 106 H 25 H 11/08/24 06:00 94/65 L 11/08/24 05:51 104 H 26 H 100 11/08/24 05:45 115/75 11/08/24 05:45 115/75 11/08/24 05:24 95 H 26 H 100 11/08/24 05:15 87/68 L 11/08/24 05:12 102 H 25 H 100 11/08/24 05:00 109 H 26 H 11/08/24 05:00 84/58 L 11/08/24 05:00 84/58 L 11/08/24 04:48 100 H 27 H 100 11/08/24 04:45 94/67 L 11/08/24 04:45 94/67 L 11/08/24 04:30 105/70 11/08/24 04:30 105/70 11/08/24 04:15 115/59 L 11/08/24 04:06 108 H 24 100 11/08/24 04:01 90/75 L 11/08/24 04:00 102 H 102/49 L 11/08/24 03:53 75/49 L 11/08/24 03:45 109 H 27 H 92 11/08/24 03:40 36.5 C 11/08/24 03:30 125 H 27 H 100 11/08/24 03:00 96 H 22 100 11/08/24 03:00 116/77 11/08/24 03:00 116/77 11/08/24 02:30 99 H 19 100 11/08/24 02:06 99 H 21 97 11/08/24 01:42 80 20 100 11/08/24 01:18 128 H 31 H 100 11/08/24 01:00 107/77 11/08/24 01:00 107/77 11/08/24 00:51 85 21 100 11/08/24 00:45 97 H 25 H 100 11/08/24 00:25 89 11/08/24 00:12 91 H 22 100 11/08/24 00:06 36.4 C L 11/08/24 00:00 93/68 L 11/08/24 00:00 86 105/47 L 11/07/24 23:57 84 22 100 11/07/24 23:16 10 L 11/07/24 23:09 86 22 100 11/07/24 22:39 82 19 100 11/07/24 22:00 81 21 100 11/07/24 22:00 110/68 11/07/24 22:00 110/68 11/07/24 21:30 86 20 100 11/07/24 21:03 90 21 100 11/07/24 21:01 81/62 L 11/07/24 21:01 81/62 L 11/07/24 21:01 81/62 L 11/07/24 20:50 Nasal Cannula 11/07/24 20:45 86 23 100 11/07/24 20:45 88 111/51 L 11/07/24 20:40 36.4 C L 11/07/24 20:30 82 21 100 11/07/24 20:00 104/61 11/07/24 20:00 86 19 O2 Del Method O2 Flow Rate O2 Flow Rate 11/08/24 07:30 11/08/24 07:27 11/08/24 07:09 11/08/24 07:00 11/08/24 07:00 11/08/24 06:57 11/08/24 06:45 11/08/24 06:45 11/08/24 06:45 11/08/24 06:33 11/08/24 06:30 11/08/24 06:30 11/08/24 06:15 11/08/24 06:15 11/08/24 06:00 11/08/24 06:00 11/08/24 05:51 11/08/24 05:45 11/08/24 05:45 11/08/24 05:24 11/08/24 05:15 11/08/24 05:12 11/08/24 05:00 11/08/24 05:00 11/08/24 05:00 11/08/24 04:48 11/08/24 04:45 11/08/24 04:45 11/08/24 04:30 11/08/24 04:30 11/08/24 04:15 11/08/24 04:06 11/08/24 04:01 11/08/24 04:00 11/08/24 03:53 11/08/24 03:45 11/08/24 03:40 11/08/24 03:30 11/08/24 03:00 11/08/24 03:00 11/08/24 03:00 11/08/24 02:30 11/08/24 02:06 11/08/24 01:42 11/08/24 01:18 11/08/24 01:00 11/08/24 01:00 11/08/24 00:51 11/08/24 00:45 11/08/24 00:25 11/08/24 00:12 11/08/24 00:06 11/08/24 00:00 11/08/24 00:00 11/07/24 23:57 11/07/24 23:16 Nasal Cannula 2 11/07/24 23:09 11/07/24 22:39 11/07/24 22:00 11/07/24 22:00 11/07/24 22:00 11/07/24 21:30 11/07/24 21:03 11/07/24 21:01 11/07/24 21:01 11/07/24 21:01 11/07/24 20:50 2 11/07/24 20:45 11/07/24 20:45 11/07/24 20:40 11/07/24 20:30 11/07/24 20:00 11/07/24 20:00 Laboratory Results 11/08/24 04:27 11/08/24 04:27 Coding Level of Care Code 04489 CRITICAL CARE 1ST 30-74M Diagnoses Atrial fibrillation I48.91 Atrial fibrillation type: unspecified Closed fracture of left hip S72.002A Encounter type: initial encounter Chronic heart failure with preserved ejection fraction I50.32 Severe pulmonary hypertension I27.20 Atrial fibrillation with controlled ventricular response I48.91 Severe mitral valve stenosis I05.0 Shock circulatory R57.9 Ex-smoker Z87.891 Aortic stenosis I35.0 (1) Atrial fibrillation Atrial fibrillation type: unspecified Qualified Code(s): I48.91 - Unspecified atrial fibrillation (2) Closed fracture of left hip Encounter type: initial encounter Qualified Code(s): S72.002A - Fracture of unspecified part of neck of left femur, initial encounter for closed fracture
--- NOTE | 2024-11-08 08:00 | Cardiology Progress Note ---
Date of Service November 08, 2024 Assessment & Plan (1) Severe mitral valve stenosis: (2) Moderate mitral regurgitation: (3) Aortic stenosis: (4) Atrial fibrillation with controlled ventricular response: (5) Severe pulmonary hypertension: (6) Chronic heart failure with preserved ejection fraction: (7) Shock circulatory: Plan Assessment: Complex 74-year-old female presents with mechanical fall and acute left hip fracture. She was deemed high perioperative cardiovascular risk due to severe mitral valve stenosis with severe pulmonary hypertension. Moderate mitral regurgitation and mild to moderate aortic valve stenosis also noted. LV systolic function preserved without regional wall motion abnormality. High- sensitivity troponins are normal. She does not appear volume overloaded on exam. Surgery was considered urgent and necessary due to acute fracture and intractable pain managed with narcotic medication. Plan: 11/08/2024: -Patient is quite ill remaining in critical care status. Blood pressures were quite labile post-operatively requiring pressure support. Critical care medicine is currently utilizing Vasopression and Norepinephrine gtts to maintain a MAP goal above 65. -Review of telemetry shows Atrial fibrillation rates 80's, a-fib likely secondary to her severe mitral stenosis complicated by her acute presentation with hip fracture. Decision was made to start an amiodarone gtt as patient does not tolerate heart rates over 100bpm due to loss of atrial kick. -Does not appear hypervolemic on exam. -Heparin gtt for anticoagulation with close monitoring of H/H. HgB was 7.9 this am, this may be dilutional as patient has received 3L of fluid intraop and so will recheck HgB at noon today. Currently on Heparin gtt due to A-fib, may need to be placed on hold pending labs. No reanna bleeding noted. If below 7.0 they will plan to transfuse -patient is mentating well and visiting with family. She was advised by Critical care medicine that if we are not able to stabilize her blood pressures, they may have to consider intubation. -Critical care medicine has discussed case with patient/family and has recommended that patient be transferred to a tertiary center for continued management as well as CT surgery evaluation given her Severe MS, Cardiology is in agreement with this recommendation. Case has been discussed with Dr. Kumar. Further recommendations regarding plan of care as per his assessment. I spent a total of 50 minutes on the date of service in preparation, delivery, documentation of the care provided to the patient excluding any time spent in the performance of separately billed services. STEPHANY Best [facility] Cardiology [facility] Admission and Anticipated Discharge Date Admission Date: November 06, 2024 Supervising Physician Co-Signing Physician Notes I have reviewed the advanced practitioner's documentation on the date of service referenced in note, and I agree with, and take responsibility for the plan of care. 74 yr old resident of [place] visiting family(Daughter and Son- surgeons at [facility] and [facility] ) had a fall resulting in left hip fracture at baseline activity limited due to hip pain , per patient last seen cardiology one year ago had moderate aortic stenosis and heart failure, echo 11/07 shows severe mitral stenosis with gradient >10 at heart rate in 90 , severe MAC, severe pulmonary hTN 71 mmhg, mild to moderate aortic valve stenosis s/p fall with hip fracture underwent open reduction and internal fixation on 11/07/2024 post procedure has been hypotensive required ICU admission, pressor support afib with RVR has been on heparin since yesterday 11/08 Today morning has been hypotensive and tachycardia started on amiodarone drip for rate control , received one dose of digoxin drop in hemoglobin and bleeding from left leg , hematoma at surgical site on imaging - heparin drip stopped. receiving 2 units of blood transfusion rate better controlled with amiodarone drip 1. Shock requiring pressors combined cardiac and hypovolemic-acute bleeding receiving blood , keep hb > 8 2. Atrial fibrillation with RVR anticoagulation to be held till surgical site hematoma and hb is stable 3. Severe mitral stenosis with severe pulmonary Hypertension - in view of shock and severe stenotic valve- will need higher level of care - Tertiary care center where cardiac intervention support is available if needed. mean gradient elevated will need to keep heart rate lower preferably 60- 80 to allow diastolic filling continue amiodarone drip. if renal function stable can consider second dose of digoxin will need to monitor for volume overload with blood transfusions currently no volume overload Discussed with primary team and family at bedside I spent a total of [40] minutes coordinating, documenting, and providing care for this patient excluding time spent in the performance of separately billed services or time spent by another provider. Subjective 11/08/2024: Patient seen and examined in follow up today. Feeling fair. She denies any acute concerns although is mentating well and understands that she is quite ill with her known cardiac issues. Several family members are present in the room. Patient denies any chest pain pressure, palpitations, she denies any shortness of breath, PND, pre-syncope, syncope or edema Labs, vitals, diagnostics, telemetry and documentation reviewed. Telemetry reviewed showing A-fib with rates in the 80's occasional PVC's. There were telemetry notations of a brief episode of bradycardia around 1900 last night, but no sinus pause. No recurrence since. Patient is currently on a vasopressin gtt, norepiephrine gtt, Amiodarone gtt, and Heparin gtt. H/H 7.9/22.6 will be repeated at 12noon. Patient has been recommend for transfer to [facility] for further treatment and to involve CT surgery due to severe MS. Review of Systems Review of Systems: All systems reviewed & are unremarkable except as noted in HPI & below Physical Exam Constitutional: well developed and + ill appearing; no acute distress Neck: normal visual inspection and trachea midline Respiratory: normal respiratory effort; no respiratory distress, no labored breathing and no cough Auscultation: lungs clear to auscultation bilaterally and + diminished lung sounds (bilateral bases ); no crackles, no rales, no rhonchi and no wheezes Cardiovascular: Rate/Rhythm: + irregularly irregular Heart Sounds: normal S1, normal S2 and + murmur (+3/6) Vessels: dorsalis pedis pulses present; no JVD Extremities: no edema Skin: no rashes, warm and dry Psychiatric: A+Ox3, euthymic affect Results & Data Vital Signs (Past 12 Hours) Vital Signs Temp Pulse Resp BP Pulse Ox Pulse Ox O2 Del Method 11/08/24 07:30 108/68 11/08/24 07:27 106 H 28 H 100 11/08/24 07:09 108 H 27 H 100 11/08/24 07:00 96/78 L 11/08/24 07:00 96/78 L 11/08/24 06:57 121 H 23 94 11/08/24 06:45 102/79 11/08/24 06:45 102/79 11/08/24 06:45 97 H 25 H 100 11/08/24 06:33 89 26 H 100 11/08/24 06:30 102/71 11/08/24 06:30 102/71 11/08/24 06:15 90/60 L 11/08/24 06:15 90/60 L 11/08/24 06:00 106 H 25 H 11/08/24 06:00 94/65 L 11/08/24 05:51 104 H 26 H 100 11/08/24 05:45 115/75 11/08/24 05:45 115/75 11/08/24 05:24 95 H 26 H 100 11/08/24 05:15 87/68 L 11/08/24 05:12 102 H 25 H 100 11/08/24 05:00 109 H 26 H 11/08/24 05:00 84/58 L 11/08/24 05:00 84/58 L 11/08/24 04:48 100 H 27 H 100 11/08/24 04:45 94/67 L 11/08/24 04:45 94/67 L 11/08/24 04:30 105/70 11/08/24 04:30 105/70 11/08/24 04:15 115/59 L 11/08/24 04:06 108 H 24 100 11/08/24 04:01 90/75 L 11/08/24 04:00 102 H 102/49 L 11/08/24 03:53 75/49 L 11/08/24 03:45 109 H 27 H 92 11/08/24 03:40 36.5 C 11/08/24 03:30 125 H 27 H 100 11/08/24 03:00 96 H 22 100 11/08/24 03:00 116/77 11/08/24 03:00 116/77 11/08/24 02:30 99 H 19 100 11/08/24 02:06 99 H 21 97 11/08/24 01:42 80 20 100 11/08/24 01:18 128 H 31 H 100 11/08/24 01:00 107/77 11/08/24 01:00 107/77 11/08/24 00:51 85 21 100 11/08/24 00:45 97 H 25 H 100 11/08/24 00:25 89 11/08/24 00:12 91 H 22 100 11/08/24 00:06 36.4 C L 11/08/24 00:00 93/68 L 11/08/24 00:00 86 105/47 L 11/07/24 23:57 84 22 100 11/07/24 23:16 10 L 11/07/24 23:09 86 22 100 11/07/24 22:39 82 19 100 11/07/24 22:00 81 21 100 11/07/24 22:00 110/68 11/07/24 22:00 110/68 11/07/24 21:30 86 20 100 11/07/24 21:03 90 21 100 11/07/24 21:01 81/62 L 11/07/24 21:01 81/62 L 11/07/24 21:01 81/62 L 11/07/24 20:50 Nasal Cannula 11/07/24 20:45 86 23 100 11/07/24 20:45 88 111/51 L 11/07/24 20:40 36.4 C L 11/07/24 20:30 82 21 100 11/07/24 20:00 104/61 11/07/24 20:00 86 19 O2 Del Method O2 Flow Rate O2 Flow Rate 11/08/24 07:30 11/08/24 07:27 11/08/24 07:09 11/08/24 07:00 11/08/24 07:00 11/08/24 06:57 11/08/24 06:45 11/08/24 06:45 11/08/24 06:45 11/08/24 06:33 11/08/24 06:30 11/08/24 06:30 11/08/24 06:15 11/08/24 06:15 11/08/24 06:00 11/08/24 06:00 11/08/24 05:51 11/08/24 05:45 11/08/24 05:45 11/08/24 05:24 11/08/24 05:15 11/08/24 05:12 11/08/24 05:00 11/08/24 05:00 11/08/24 05:00 11/08/24 04:48 11/08/24 04:45 11/08/24 04:45 11/08/24 04:30 11/08/24 04:30 11/08/24 04:15 11/08/24 04:06 11/08/24 04:01 11/08/24 04:00 11/08/24 03:53 11/08/24 03:45 11/08/24 03:40 11/08/24 03:30 11/08/24 03:00 11/08/24 03:00 11/08/24 03:00 11/08/24 02:30 11/08/24 02:06 11/08/24 01:42 11/08/24 01:18 11/08/24 01:00 11/08/24 01:00 11/08/24 00:51 11/08/24 00:45 11/08/24 00:25 11/08/24 00:12 11/08/24 00:06 11/08/24 00:00 11/08/24 00:00 11/07/24 23:57 11/07/24 23:16 Nasal Cannula 2 11/07/24 23:09 11/07/24 22:39 11/07/24 22:00 11/07/24 22:00 11/07/24 22:00 11/07/24 21:30 11/07/24 21:03 11/07/24 21:01 11/07/24 21:01 11/07/24 21:01 11/07/24 20:50 2 11/07/24 20:45 11/07/24 20:45 11/07/24 20:40 11/07/24 20:30 11/07/24 20:00 11/07/24 20:00 Laboratory Results Cardiac Enzymes 11/07/24 Range/Units 17:02 AST 23 (13-39) U/L B-Natriuretic Peptide 625 H (0-100) pg/ml Coagulation 11/07/24 11/07/24 Range/Units 17:02 18:42 PT 13.5 H (9.0-12.0) Seconds APTT 28 (21-31) Seconds B-Natriuretic Peptide 625 H (0-100) pg/ml CBC 11/07/24 11/08/24 Range/Units 17:02 04:27 WBC 15.75 H 16.02 H (4.8-10.8) K/ul RBC 3.52 L 2.52 L (4.20-5.40) M/uL Hgb 11.0 L D 7.9 L D (12.0-16.0) g/dl Hct 31.8 L 22.6 L (37.0-47.0) % Plt Count 161 144 (130-400) K/uL Neut # (Auto) 12.86 H 13.37 H (1.40-6.50) K/uL Lymph # (Auto) 1.15 L 1.66 (1.20-3.40) K/uL [place] # (Auto) 1.56 H 0.89 H (0.11-0.59) K/uL Eos # (Auto) 0.02 0.00 (0.00-0.50) K/uL Baso # (Auto) 0.04 0.02 (0.00-0.20) K/uL Comprehensive Metabolic Panel 11/07/24 11/08/24 Range/Units 17:02 04:27 Sodium 138 136 (136-145) mmol/L Potassium 4.0 3.9 (3.5-5.1) mmol/L Chloride 110 H 107 (98-107) mmol/L Carbon Dioxide 22 22 (21-32) mmol/L BUN 17 19 (6-23) mg/dl Creatinine 1.09 1.09 (0.6-1.2) mg/dl Glucose 173 H 239 H (70-99(Fasting)) mg/dl Calcium 8.1 L 8.2 L (8.6-10.3) mg/dl AST 23 (13-39) U/L ALT 11 (7-52) U/L Alkaline Phosphatase 39 (34-104) U/L Total Protein 6.0 D (6.0-8.3) gm/dl Albumin 3.1 L (3.4-5.0) gm/dl Intake and Output 11/07/24 11/08/24 11/08/24 22:59 06:59 14:59 Intake Total 1956.176 / 3133.019 1176.843 / 3133.019 342.268 / 342.268 Output Total 250 / 545 295 / 545 Balance 1706.176 / 2588.019 881.843 / 2588.019 342.268 / 342.268 Intake: IV 1956.176 / 3133.019 1176.843 / 3133.019 342.268 / 342.268 Acetaminophen 1,000 mg In 100 100 / 100 ml @ 400 mls/hr IV Q8H PRN Rx#: [id number] Albumin 5% 250 ml @ 500 mls/hr 500 / 500 IV ONE ONE Rx#:[id number] Calcium Gluconate 1,000 mg In 112 / 112 60 ml @ 240 mls/hr IV Q15M [facility] Rx#:[id number] Heparin 06918 Unit/500 ml D5w 1.9 / 134.583 132.683 / 134.583 97.533 / 97.533 25,000 units In 500 ml @ 950 UNITS/HR 19 mls/hr IV .Q24H [facility] Rx#:[id number] Lactated Ringer's 250 ml @ 999 250 / 250 mls/hr IV .Q16M ONE Rx#: [id number] Magnesium Sulfate / D5w 1 gm In 97.5 / 97.5 100 ml @ 50 mls/hr IV Q2H [facility] Rx#:[id number] Norepinephrine/D5w 4 mg In 250 322.916 / 858.068 535.152 / 858.068 159.632 / 159.632 ml @ 0.31 MCG/KG/MIN 126.131 mls/hr IV .Q1H59M [facility] Rx#: [id number] Sodium Chloride 0.9% 1,000 ml @ 1000.000 / 1000.000 50 mls/hr IV .Q20H [facility] Rx#: [id number] Vasopressin 20 units In Sodium 19.36 / 80.868 61.508 / 80.868 85.103 / 85.103 Chloride 0.9% 100 ml @ 0.04 UNIT/MIN 12.12 mls/hr IV . Q8H20M [facility] Rx#:[id number] Output: Urine Amount (Catheter) 250 / 545 295 / 545 Gutierrez/Indwelling 250 / 545 295 / 545 Other: Weight 113.67 kg Weight Measurement Method Built in [facility]
[2024-11-08] MEDS ORDERED: 0.2 MICRON FILTER SET 1 EACH IV STA (08:14)
[2024-11-08] MEDS ORDERED: AMIODARONE IV BOLUS & DRIP IV STA (08:14)
[2024-11-08] MEDS ORDERED: STAT IV Infusion **Titration per Protocol STA (08:14)
[2024-11-08] MEDS: AMIODARONE / D5W 150 MG/100 ML BAG IV STA (08:24)
[2024-11-08] MEDS: ALBUMIN 5% 250 ML IV ONE ×2 (08:33→10:10)
[2024-11-08] MEDS: AMIODARONE / D5W 360 MG/200 ML BAG IV ONE (08:33)
--- NOTE | 2024-11-08 08:38 | XRay Report ---
Technique: A frontal view of the chest was obtained Comparison is made to the prior examination dated 11/07/2024 Findings: There is suspected mild pulmonary edema. The heart is enlarged. No pleural effusion or pneumothorax is seen. There is an unchanged right jugular central venous line with its tip in the lower SVC No fracture is noted. No foreign body is seen Impression: Cardiomegaly and mild pulmonary edema ACT 112: Positive. There are findings on this exam that require communication between the performing entity and the patient following Patient Test Result Information Act ([place] ACT 112) guidelines. Electronically signed by Vladimir Dickson 11-08-2024 08:38 AM
--- NOTE | 2024-11-08 08:41 | Orthopedic Progress Note ---
Date of Service November 08, 2024 Assessment & Plan (1) Closed left hip fracture: Plan: IMPRESSION: POD #1 s/p ORIF Left hip fracture, acute anemia blood loss, in A- fib, tachycardic, low BP, remains in ICU PLAN: Acute anemia blood loss Hgb dropped from 11 -> 7.9, would not hesitate to transfuse When able OOB, WBAT with walker PT/OT DVT prophylaxis: currently on Heparin Continue care per [facility] and Hospitalist service. Spoke with [facility] and considering transfer to tertiary care Admission and Anticipated Discharge Date Admission Date: November 06, 2024 Subjective Not feeling well. Retching when attempting ice chips. Physical Exam Physical Exam: LLE: Able to wiggle toes & ankle. 2+ DP pulse. Calf soft and non-tender. Dressings with minimal bloody drainage; otherwise intact. Results & Data Vital Signs (Past 12 Hours) Vital Signs Temp Pulse Resp BP Pulse Ox Pulse Ox O2 Del Method 11/08/24 07:30 108/68 11/08/24 07:27 106 H 28 H 100 11/08/24 07:09 108 H 27 H 100 11/08/24 07:00 96/78 L 11/08/24 07:00 96/78 L 11/08/24 06:57 121 H 23 94 11/08/24 06:45 102/79 11/08/24 06:45 102/79 11/08/24 06:45 97 H 25 H 100 11/08/24 06:33 89 26 H 100 11/08/24 06:30 102/71 11/08/24 06:30 102/71 11/08/24 06:15 90/60 L 11/08/24 06:15 90/60 L 11/08/24 06:00 106 H 25 H 11/08/24 06:00 94/65 L 11/08/24 05:51 104 H 26 H 100 11/08/24 05:45 115/75 11/08/24 05:45 115/75 11/08/24 05:24 95 H 26 H 100 11/08/24 05:15 87/68 L 11/08/24 05:12 102 H 25 H 100 11/08/24 05:00 109 H 26 H 11/08/24 05:00 84/58 L 11/08/24 05:00 84/58 L 11/08/24 04:48 100 H 27 H 100 11/08/24 04:45 94/67 L 11/08/24 04:45 94/67 L 11/08/24 04:30 105/70 11/08/24 04:30 105/70 11/08/24 04:15 115/59 L 11/08/24 04:06 108 H 24 100 11/08/24 04:01 90/75 L 11/08/24 04:00 102 H 102/49 L 11/08/24 03:53 75/49 L 11/08/24 03:45 109 H 27 H 92 11/08/24 03:40 36.5 C 11/08/24 03:30 125 H 27 H 100 11/08/24 03:00 96 H 22 100 11/08/24 03:00 116/77 11/08/24 03:00 116/77 11/08/24 02:30 99 H 19 100 11/08/24 02:06 99 H 21 97 11/08/24 01:42 80 20 100 11/08/24 01:18 128 H 31 H 100 11/08/24 01:00 107/77 11/08/24 01:00 107/77 11/08/24 00:51 85 21 100 11/08/24 00:45 97 H 25 H 100 11/08/24 00:25 89 11/08/24 00:12 91 H 22 100 11/08/24 00:06 36.4 C L 11/08/24 00:00 93/68 L 11/08/24 00:00 86 105/47 L 11/07/24 23:57 84 22 100 11/07/24 23:16 10 L 11/07/24 23:09 86 22 100 11/07/24 22:39 82 19 100 11/07/24 22:00 81 21 100 11/07/24 22:00 110/68 11/07/24 22:00 110/68 11/07/24 21:30 86 20 100 11/07/24 21:03 90 21 100 11/07/24 21:01 81/62 L 11/07/24 21:01 81/62 L 11/07/24 21:01 81/62 L 11/07/24 20:50 Nasal Cannula 11/07/24 20:45 86 23 100 11/07/24 20:45 88 111/51 L 11/07/24 20:40 36.4 C L 11/07/24 20:30 82 21 100 O2 Del Method O2 Flow Rate O2 Flow Rate 11/08/24 07:30 11/08/24 07:27 11/08/24 07:09 11/08/24 07:00 11/08/24 07:00 11/08/24 06:57 11/08/24 06:45 11/08/24 06:45 11/08/24 06:45 11/08/24 06:33 11/08/24 06:30 11/08/24 06:30 11/08/24 06:15 11/08/24 06:15 11/08/24 06:00 11/08/24 06:00 11/08/24 05:51 11/08/24 05:45 11/08/24 05:45 11/08/24 05:24 11/08/24 05:15 11/08/24 05:12 11/08/24 05:00 11/08/24 05:00 11/08/24 05:00 11/08/24 04:48 11/08/24 04:45 11/08/24 04:45 11/08/24 04:30 11/08/24 04:30 11/08/24 04:15 11/08/24 04:06 11/08/24 04:01 11/08/24 04:00 11/08/24 03:53 11/08/24 03:45 11/08/24 03:40 11/08/24 03:30 11/08/24 03:00 11/08/24 03:00 11/08/24 03:00 11/08/24 02:30 11/08/24 02:06 11/08/24 01:42 11/08/24 01:18 11/08/24 01:00 11/08/24 01:00 11/08/24 00:51 11/08/24 00:45 11/08/24 00:25 11/08/24 00:12 11/08/24 00:06 11/08/24 00:00 11/08/24 00:00 11/07/24 23:57 11/07/24 23:16 Nasal Cannula 2 11/07/24 23:09 11/07/24 22:39 11/07/24 22:00 11/07/24 22:00 11/07/24 22:00 11/07/24 21:30 11/07/24 21:03 11/07/24 21:01 11/07/24 21:01 11/07/24 21:01 11/07/24 20:50 2 11/07/24 20:45 11/07/24 20:45 11/07/24 20:40 11/07/24 20:30 Laboratory Results 11/08/24 11/08/24 11/08/24 Range/Units 04:27 04:19 04:12 WBC 16.02 H (4.8-10.8) K/ul RBC 2.52 L (4.20-5.40) M/uL Hgb 7.9 L D (12.0-16.0) g/dl POC Hgb 7.1 L 7.5 L (12.0-16.0) g/dl Hct 22.6 L (37.0-47.0) % POC Hct 21 L 22 L (37-47) % MCV 89.7 (80.0-100.0) fL MCH 31.3 (25.0-34.0) pg MCHC 35.0 (32.0-36.0) g/dL RDW Std Deviation 44.1 (36.4-46.3) fL RDW Coeff of Gifty 13.4 (11.5-14.5) % Plt Count 144 (130-400) K/uL MPV 10.6 (9.4-12.4) fL Immature Gran % (Auto) 0.5 % Neut % (Auto) 83.4 % Lymph % (Auto) 10.4 % Kimble % (Auto) 5.6 % Eos % (Auto) 0.0 % Baso % (Auto) 0.1 % Neut # (Auto) 13.37 H (1.40-6.50) K/uL Lymph # (Auto) 1.66 (1.20-3.40) K/uL Kimble # (Auto) 0.89 H (0.11-0.59) K/uL Eos # (Auto) 0.00 (0.00-0.50) K/uL Baso # (Auto) 0.02 (0.00-0.20) K/uL Immature Gran # (Auto) 0.08 (0.01-0.20) K/uL RBC Morphology Unremarkable PT (9.0-12.0) Seconds INR (0.9-1.1) APTT (21-31) Seconds PTT Ratio Heparin Anti-Xa, Unfract 0.47 (0.3-0.7) IU/ml Specimen Type Arterial Arterial Sample Site Art Line Art Line POC pH 7.36 7.43 (7.35-7.45) POC pCO2 38 30 L (35-46) mmHg POC pO2 21 L 135 H (80-95) mmHg POC HCO3 22 20 (19-24) john/L POC Total CO2 23 L 21 L (24-31) mmol/L POC Base Excess -4.0 -4.0 (-9-1.8) john/L O2 Sat Pulse Oximetry 100 100 ABG pH (Temp Correct) 7.364 7.441 (7.35-7.45) ABG pCO2 (Temp Corrct 38 29 L (35-46) mmHg POC ABG pO2 at Pt Temp 20 132 POC ABG O2 Sat 33.0 L 99.0 H (90-95) % Moe Test NA NA O2 Delivery Device Cannula Cannula POC Sodium 138 138 (135-144) mmol/L Sodium 136 (136-145) mmol/L POC Potassium 3.7 3.9 (3.3-5.0) mmol/L Potassium 3.9 (3.5-5.1) mmol/L Chloride 107 (98-107) mmol/L Carbon Dioxide 22 (21-32) mmol/L Anion Gap 7 (3-11) BUN 19 (6-23) mg/dl Creatinine 1.09 (0.6-1.2) mg/dl Est Cr Clr Drug Dosing 56.5 ml/min eGFR 53.31 BUN/Creatinine Ratio 17.4 (10-20) Glucose 239 H (70-99(Fasting)) mg/dl Lactate 1.4 (0.4-2.0) mmol/L Calcium 8.2 L (8.6-10.3) mg/dl Magnesium 1.6 L (1.7-2.4) mg/dl Total Bilirubin (0.2-1.0) mg/dl AST (13-39) U/L ALT (7-52) U/L Alkaline Phosphatase (34-104) U/L Total Creatine Kinase (26-192) U/L B-Natriuretic Peptide (0-100) pg/ml Total Protein (6.0-8.3) gm/dl Albumin (3.4-5.0) gm/dl Globulin (2.5-4.0) gm/dl Albumin/Globulin Ratio (0.9-2) Random Cortisol mcg/dl Nasal Screen MRSA (PCR) (Negative) 11/08/24 11/07/24 11/07/24 Range/Units 01:06 Unknown 18:42 WBC (4.8-10.8) K/ul RBC (4.20-5.40) M/uL Hgb (12.0-16.0) g/dl POC Hgb (12.0-16.0) g/dl Hct (37.0-47.0) % POC Hct (37-47) % MCV (80.0-100.0) fL MCH (25.0-34.0) pg MCHC (32.0-36.0) g/dL RDW Std Deviation (36.4-46.3) fL RDW Coeff of Gifty (11.5-14.5) % Plt Count (130-400) K/uL MPV (9.4-12.4) fL Immature Gran % (Auto) % Neut % (Auto) % Lymph % (Auto) % Kimble % (Auto) % Eos % (Auto) % Baso % (Auto) % Neut # (Auto) (1.40-6.50) K/uL Lymph # (Auto) (1.20-3.40) K/uL Kimble # (Auto) (0.11-0.59) K/uL Eos # (Auto) (0.00-0.50) K/uL Baso # (Auto) (0.00-0.20) K/uL Immature Gran # (Auto) (0.01-0.20) K/uL RBC Morphology PT 13.5 H (9.0-12.0) Seconds INR 1.3 H (0.9-1.1) APTT 28 (21-31) Seconds PTT Ratio 1.0 Heparin Anti-Xa, Unfract 0.40 (0.3-0.7) IU/ml Specimen Type Sample Site POC pH (7.35-7.45) POC pCO2 (35-46) mmHg POC pO2 (80-95) mmHg POC HCO3 (19-24) john/L POC Total CO2 (24-31) mmol/L POC Base Excess (-9-1.8) john/L O2 Sat Pulse Oximetry ABG pH (Temp Correct) (7.35-7.45) ABG pCO2 (Temp Corrct (35-46) mmHg POC ABG pO2 at Pt Temp POC ABG O2 Sat (90-95) % Moe Test O2 Delivery Device POC Sodium (135-144) mmol/L Sodium (136-145) mmol/L POC Potassium (3.3-5.0) mmol/L Potassium (3.5-5.1) mmol/L Chloride (98-107) mmol/L Carbon Dioxide (21-32) mmol/L Anion Gap (3-11) BUN (6-23) mg/dl Creatinine (0.6-1.2) mg/dl Est Cr Clr Drug Dosing ml/min eGFR BUN/Creatinine Ratio (10-20) Glucose (70-99(Fasting)) mg/dl Lactate (0.4-2.0) mmol/L Calcium (8.6-10.3) mg/dl Magnesium (1.7-2.4) mg/dl Total Bilirubin (0.2-1.0) mg/dl AST (13-39) U/L ALT (7-52) U/L Alkaline Phosphatase (34-104) U/L Total Creatine Kinase (26-192) U/L B-Natriuretic Peptide (0-100) pg/ml Total Protein (6.0-8.3) gm/dl Albumin (3.4-5.0) gm/dl Globulin (2.5-4.0) gm/dl Albumin/Globulin Ratio (0.9-2) Random Cortisol mcg/dl Nasal Screen MRSA (PCR) Negative (Negative) 11/07/24 11/07/24 Range/Units 17:02 05:44 WBC 15.75 H (4.8-10.8) K/ul RBC 3.52 L (4.20-5.40) M/uL Hgb 11.0 L D (12.0-16.0) g/dl POC Hgb (12.0-16.0) g/dl Hct 31.8 L (37.0-47.0) % POC Hct (37-47) % MCV 90.3 (80.0-100.0) fL MCH 31.3 (25.0-34.0) pg MCHC 34.6 (32.0-36.0) g/dL RDW Std Deviation 44.6 (36.4-46.3) fL RDW Coeff of Gifty 13.5 (11.5-14.5) % Plt Count 161 (130-400) K/uL MPV 10.6 (9.4-12.4) fL Immature Gran % (Auto) 0.8 % Neut % (Auto) 81.6 % Lymph % (Auto) 7.3 % Kimble % (Auto) 9.9 % Eos % (Auto) 0.1 % Baso % (Auto) 0.3 % Neut # (Auto) 12.86 H (1.40-6.50) K/uL Lymph # (Auto) 1.15 L (1.20-3.40) K/uL Kimble # (Auto) 1.56 H (0.11-0.59) K/uL Eos # (Auto) 0.02 (0.00-0.50) K/uL Baso # (Auto) 0.04 (0.00-0.20) K/uL Immature Gran # (Auto) 0.12 (0.01-0.20) K/uL RBC Morphology PT (9.0-12.0) Seconds INR (0.9-1.1) APTT (21-31) Seconds PTT Ratio Heparin Anti-Xa, Unfract (0.3-0.7) IU/ml Specimen Type Sample Site POC pH (7.35-7.45) POC pCO2 (35-46) mmHg POC pO2 (80-95) mmHg POC HCO3 (19-24) john/L POC Total CO2 (24-31) mmol/L POC Base Excess (-9-1.8) john/L O2 Sat Pulse Oximetry ABG pH (Temp Correct) (7.35-7.45) ABG pCO2 (Temp Corrct (35-46) mmHg POC ABG pO2 at Pt Temp POC ABG O2 Sat (90-95) % Moe Test O2 Delivery Device POC Sodium (135-144) mmol/L Sodium 138 (136-145) mmol/L POC Potassium (3.3-5.0) mmol/L Potassium 4.0 (3.5-5.1) mmol/L Chloride 110 H (98-107) mmol/L Carbon Dioxide 22 (21-32) mmol/L Anion Gap 6 (3-11) BUN 17 (6-23) mg/dl Creatinine 1.09 (0.6-1.2) mg/dl Est Cr Clr Drug Dosing 56.5 ml/min eGFR 53.31 BUN/Creatinine Ratio 15.6 (10-20) Glucose 173 H (70-99(Fasting)) mg/dl Lactate 1.5 (0.4-2.0) mmol/L Calcium 8.1 L (8.6-10.3) mg/dl Magnesium (1.7-2.4) mg/dl Total Bilirubin 1.9 H D (0.2-1.0) mg/dl AST 23 (13-39) U/L ALT 11 (7-52) U/L Alkaline Phosphatase 39 (34-104) U/L Total Creatine Kinase 27 (26-192) U/L B-Natriuretic Peptide 625 H (0-100) pg/ml Total Protein 6.0 D (6.0-8.3) gm/dl Albumin 3.1 L (3.4-5.0) gm/dl Globulin 2.9 (2.5-4.0) gm/dl Albumin/Globulin Ratio 1.1 (0.9-2) Random Cortisol 23.54 mcg/dl Nasal Screen MRSA (PCR) (Negative)
--- NOTE | 2024-11-08 09:18 | Hospitalist Progress Note ---
Date of Service November 08, 2024 Assessment & Plan (1) Closed left hip fracture: (2) Chronic heart failure with preserved ejection fraction: (3) Atrial fibrillation with controlled ventricular response: (4) Severe pulmonary hypertension: (5) Severe mitral valve stenosis: (6) Moderate mitral regurgitation: Plan 74-year-old female from [place] visiting [place] and the son is surgeon in our hospital with past medical history significant for hypertension, CHF is status post fall and left hip fracture. Patient says she has chronic pain in the left hip. Lately walking with a cane and has difficulty ambulating.. Patient says she can walk about a block slowly but family does not think so. She was trying to sit in a chair today when she slipped and fell down in the sitting position and hurt her left hip. Did not hit her head. No loss of consciousness. Having lot of pain in the left hip region. Denies any headache. No dizziness. She has cataract in left eye and vision is not that great in that eye. No headache. No runny nose or sore throat. No recent fevers. Denies chest pain. No shortness of breath. No nausea. No abdominal pain. Normal bowel and bladder movements. Currently hemodynamics okay. Hypotensive Shock Has significant valvular heart disease with atrial fibrillation and increased ventricular rate Following open reduction and internal fixation of left hip yesterday she was transferred to ICU for continued care She went into A-fib with RVR with decreasing blood pressure and now requiring 2 pressor agents to maintain blood pressure She was started with intravenous amiodarone to control the heart rate Discussed with the recording studio intern and the patient needs to be transferred to tertiary care center for possible valvular heart surgery to control the blood pressure on the heart rate [facility] bargeman Dr. Davison is aware Discussed with the patient and she is agreeable The recording studio intern did talk to [facility] and the patient is excepted to ICU/CCU and awaiting stabilization of the Hb prior to discharge Closed left hip fracture Status post mechanical fall without any history of loss of consciousness without any warning Appreciate Ortho input and recommendation Appreciate cardiology input and recommendationshe is considered high perioperative cardiovascular risk due to cardiac conditions as stated below. she was cleared for proposed urgent surgery by the bargeman with optimization of expected acceptable risk. Remains hemodynamically stable this morning without any cardiac and respiratory symptoms Recommended not to have any spinal anesthesia Denies any pain at rest now she is requiring pressor supports and also intravenous amiodarone to control heart rate Acute blood loss anemia complicated by dilutional effect Hemoglobin dropped to 6.2 Heparin has been discontinued and patient will get blood transfusion She will be transferred after stabilization of the hemoglobin Atrial fibrillation with controlled ventricular rate EKG is showing atrial fibrillation Troponins are unremarkable Will monitor on telemetry Appreciate cardiology input and recommendation Continue carvedilol Started on intravenous amiodarone and also intravenous heparin for atrial fibrillation following surgery Remains tachycardic at 106- amiodarone has just started from this morning She was started with intravenous heparin and that will be on hold Significant valvular heart disease Has moderate aortic stenosis, severe mitral valve stenosis and moderate mitral regurgitation Severe pulmonary hypertension as well Echo of the heart showed- A-fib with controlled ventricular response, moderate concentric LVH, LVEF 60 to 65%, left atrium is severely dilated, aortic valve sclerosis with moderate stenosis, severe mitral annular calcification with severe mitral stenosis and moderate mitral regurgitation there is mild tricuspid regurgitation as well the estimated systolic pulmonary pressure is 71 mmHg. Dilated inferior vena cava with collapsibility with sniff indicates an elevated right atrial pressure of 50 mmHg She will likely need valvular heart surgery/intervention to control the blood pressure Chronic heart failure with preserved EF History of CHF No evidence of acute CHF during this admission Does not require any Lasix at this time History of hypertension Continue Coreg and lisinopril hydrochlorothiazide Will monitor DVT prophylaxis SCDs on right leg Further anticoagulation as per Ortho Disposition Telemetry Full code. Admission and Anticipated Discharge Date Admission Date: November 06, 2024 Subjective 11/07/2024 The patient was seen and examined in the telemetry unit She was admitted with a mechanical fall and fracture of the left hip Noted to have atrial fibrillation on admission Denies any chest pain and/or palpitation Complains pain in the left hip with any movement of the left lower extremity 11/08/2024 The patient was seen and examined in ICU She remains extremely weak and lethargic She has been on 2 pressor support now and has been started on intravenous amiodarone to control the heart rate Denies any chest pain and/or palpitation and does not have any shortness of breath at rest No abdominal pain nausea and/or vomiting Review of Systems Review of Systems: Looks pale and very anxious. Profoundly weak and lethargic with cold extremities Physical Exam Physical Exam: Lying in bed with minimal shortness of breath at rest and distress generally Constitutional: well developed, well nourished, + ill appearing and + obese Eyes: PERRL, conjunctivae normal, anicteric sclerae ENMT: external ear and nose normal, oropharynx normal Neck: trachea midline, no thyromegaly Respiratory: no respiratory distress Auscultation: lungs clear to auscultation bilaterally and + diminished lung sounds ( at the bases) Cardiovascular: Rate/Rhythm: + irregularly irregular; not tachycardic Heart Sounds: normal S1, normal S2 and + murmur Extremities: + edema (Trace edema bilaterally) Gastrointestinal (Abdomen): Inspection/Auscultation: normal bowel sounds; abdomen not distended Percussion/Palpation: abdomen soft; abdomen nontender Musculoskeletal: Status post left hip surgery. has been moving extremities Neurologic: normal touch/pain/proprioception and moves all extremities (Less movement with the left lower extremity due to fracture) Psychiatric: A+Ox3, euthymic affect Lymphatic: no cervical or axillary lymphadenopathy Results & Data Results & Data Vital Signs (Past 12 Hours) Vital Signs Temp Pulse Resp BP Pulse Ox Pulse Ox O2 Del Method 11/08/24 07:30 108/68 11/08/24 07:27 106 H 28 H 100 11/08/24 07:09 108 H 27 H 100 11/08/24 07:00 96/78 L 11/08/24 07:00 96/78 L 11/08/24 06:57 121 H 23 94 11/08/24 06:45 102/79 11/08/24 06:45 102/79 11/08/24 06:45 97 H 25 H 100 11/08/24 06:33 89 26 H 100 11/08/24 06:30 102/71 11/08/24 06:30 102/71 11/08/24 06:15 90/60 L 11/08/24 06:15 90/60 L 11/08/24 06:00 106 H 25 H 11/08/24 06:00 94/65 L 11/08/24 05:51 104 H 26 H 100 11/08/24 05:45 115/75 11/08/24 05:45 115/75 11/08/24 05:24 95 H 26 H 100 11/08/24 05:15 87/68 L 11/08/24 05:12 102 H 25 H 100 11/08/24 05:00 109 H 26 H 11/08/24 05:00 84/58 L 11/08/24 05:00 84/58 L 11/08/24 04:48 100 H 27 H 100 11/08/24 04:45 94/67 L 11/08/24 04:45 94/67 L 11/08/24 04:30 105/70 11/08/24 04:30 105/70 11/08/24 04:15 115/59 L 11/08/24 04:06 108 H 24 100 11/08/24 04:01 90/75 L 11/08/24 04:00 102 H 102/49 L 11/08/24 03:53 75/49 L 11/08/24 03:45 109 H 27 H 92 11/08/24 03:40 36.5 C 11/08/24 03:30 125 H 27 H 100 11/08/24 03:00 96 H 22 100 11/08/24 03:00 116/77 11/08/24 03:00 116/77 11/08/24 02:30 99 H 19 100 11/08/24 02:06 99 H 21 97 11/08/24 01:42 80 20 100 11/08/24 01:18 128 H 31 H 100 11/08/24 01:00 107/77 11/08/24 01:00 107/77 11/08/24 00:51 85 21 100 11/08/24 00:45 97 H 25 H 100 11/08/24 00:25 89 11/08/24 00:12 91 H 22 100 11/08/24 00:06 36.4 C L 11/08/24 00:00 93/68 L 11/08/24 00:00 86 105/47 L 11/07/24 23:57 84 22 100 11/07/24 23:16 10 L Nasal Cannula 11/07/24 23:09 86 22 100 11/07/24 22:39 82 19 100 11/07/24 22:00 81 21 100 11/07/24 22:00 110/68 11/07/24 22:00 110/68 11/07/24 21:30 86 20 100 O2 Flow Rate 11/08/24 07:30 11/08/24 07:27 11/08/24 07:09 11/08/24 07:00 11/08/24 07:00 11/08/24 06:57 11/08/24 06:45 11/08/24 06:45 11/08/24 06:45 11/08/24 06:33 11/08/24 06:30 11/08/24 06:30 11/08/24 06:15 11/08/24 06:15 11/08/24 06:00 11/08/24 06:00 11/08/24 05:51 11/08/24 05:45 11/08/24 05:45 11/08/24 05:24 11/08/24 05:15 11/08/24 05:12 11/08/24 05:00 11/08/24 05:00 11/08/24 05:00 11/08/24 04:48 11/08/24 04:45 11/08/24 04:45 11/08/24 04:30 11/08/24 04:30 11/08/24 04:15 11/08/24 04:06 11/08/24 04:01 11/08/24 04:00 11/08/24 03:53 11/08/24 03:45 11/08/24 03:40 11/08/24 03:30 11/08/24 03:00 11/08/24 03:00 11/08/24 03:00 11/08/24 02:30 11/08/24 02:06 11/08/24 01:42 11/08/24 01:18 11/08/24 01:00 11/08/24 01:00 11/08/24 00:51 11/08/24 00:45 11/08/24 00:25 11/08/24 00:12 11/08/24 00:06 11/08/24 00:00 11/08/24 00:00 11/07/24 23:57 11/07/24 23:16 2 11/07/24 23:09 11/07/24 22:39 11/07/24 22:00 11/07/24 22:00 11/07/24 22:00 11/07/24 21:30 Laboratory Results Short CBC 11/07/24 11/08/24 Range/Units 17:02 04:27 WBC 15.75 H 16.02 H (4.8-10.8) K/ul Hgb 11.0 L D 7.9 L D (12.0-16.0) g/dl Hct 31.8 L 22.6 L (37.0-47.0) % Plt Count 161 144 (130-400) K/uL BMP 11/07/24 11/08/24 17:02 04:27 Sodium 138 136 Potassium 4.0 3.9 Chloride 110 H 107 Carbon Dioxide 22 22 BUN 17 19 Creatinine 1.09 1.09 Glucose 173 H 239 H Calcium 8.1 L 8.2 L Cardiac Enzymes 11/07/24 Range/Units 05:44 Total Creatine Kinase 27 (26-192) U/L Liver Function 11/07/24 Range/Units 17:02 Total Bilirubin 1.9 H D (0.2-1.0) mg/dl AST 23 (13-39) U/L ALT 11 (7-52) U/L Alkaline Phosphatase 39 (34-104) U/L Albumin 3.1 L (3.4-5.0) gm/dl Medications Administered Current Inpatient Medications Hydromorphone HCl (Hydromorphone Inj 0.5 Mg/0.5 Ml Syr) 0.25 mg IV Q4H PRN PRN Reason: Moderate Pain (Scale 4, 5, 6) Stop: 11/20/24 23:15 Hydromorphone HCl (Hydromorphone Inj 0.5 Mg/0.5 Ml Syr) 0.5 mg IV Q4H PRN PRN Reason: Severe Pain (Scale 7, 8, 9,10) Stop: 11/20/24 23:15 Last Admin: 11/07/24 17:57 Dose: 0.5 mg Sodium Chloride (Nss) 1,000 mls @ 50 mls/hr IV .Q20H [facility] Stop: 11/09/24 23:15 Last Admin: 11/07/24 17:37 Dose: Not Given Vasopressin 20 units/ Sodium (Chloride) 101 mls @ 12.12 mls/hr IV .Q8H20M [facility] Stop: 12/07/24 17:14 Last Admin: 11/08/24 08:09 Dose: 0.04 unit/min, 12.1 mls/hr Norepinephrine Bitartrate (Levophed/D5w) 4 mg in 250 mls @ 126.131 mls/hr IV .Q1H59M [facility]; Protocol Stop: 12/07/24 17:29 Last Titration: 11/08/24 07:24 Dose: 0.31 mcg/kg/min, 126.1 mls/hr Pantoprazole Sodium (Protonix) 40 mg in 10 mls @ 5 mls/min IV DAILY [facility] Stop: 12/08/24 08:59 Heparin Sodium/Dextrose (Heparin 01932 Unit/500 Ml D5w) 25,000 units in 500 mls @ 19 mls/hr IV .Q24H AFSHAN; Protocol Stop: 12/07/24 18:44 Last Titration: 11/08/24 07:01 Dose: 950 units/hr, 19 mls/hr Acetaminophen (Ofirmev) 1,000 mg in 100 mls @ 400 mls/hr IV Q8H PRN PRN Reason: Mild Pain (Scale 1, 2, 3) Stop: 11/10/24 18:40 Last Infusion: 11/07/24 23:24 Dose: Infused Hydrocortisone Sodium (Succinate 50 mg/ Syringe) 1 mls @ 4 mls/min IV Q6H [facility] Stop: 12/08/24 00:59 Last Admin: 11/08/24 08:09 Dose: 4 mls/min Amiodarone HCl/Dextrose (Nexterone / D5w) 360 mg in 200 mls @ 33.333 mls/hr IV ONE ONE Stop: 11/08/24 14:23 Last Admin: 11/08/24 08:33 Dose: 1 mg/min, 33.3 mls/hr Amiodarone HCl/Dextrose (Nexterone / D5w) 360 mg in 200 mls @ 16.667 mls/hr IV .Q12H [facility] Stop: 12/08/24 14:14 Nitroglycerin (Nitroglycerin Sl 0.4 Mg/Tab Tab) 0.4 mg SL Q5M PRN PRN Reason: Chest Pain Stop: 12/06/24 23:15 Ondansetron HCl (Ondansetron Inj 2 Mg/Ml 2 Ml Vial) 4 mg IV Q6H PRN PRN Reason: Nausea And Vomiting Stop: 12/06/24 23:20 Last Admin: 11/08/24 01:23 Dose: 4 mg Polyethylene Glycol (Polyethylene (Miralax) 17 Gm Pack) 17 gm PO DAILY PRN PRN Reason: Constipation Stop: 12/06/24 23:15
[2024-11-08] MEDS: DIGOXIN 250 MCG in SYRINGE 9 ML IV STA (10:09)
[2024-11-08] MEDS: PANTOprazole 40 MG/10 ML SYR IV SCH (10:09)
[2024-11-08] MEDS: MAX Conc; 16mg in 250mL IV SCH (10:24)
[2024-11-08 11:19] LABS: Hematocrit (blood only) 17.7 % (37.0-47.0); Hemoglobin 6.2 g/dl (12.0-16.0)
[2024-11-08] MEDS ORDERED: SODIUM CHLORIDE 0.9% 100 ML IV PRN (11:19)
[2024-11-08] MEDS: OPTIRAY 320 100ml IV ONE (11:37)
--- NOTE | 2024-11-08 12:10 | Fluoroscopy Report ---
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 Fluoroscopy time: 4 minutes and 41 seconds. Number of fluoroscopic images: 6. Ka,r: 87.18 mGy. FINDINGS: Fluoroscopy was provided during open reduction and internal fixation of the intertrochanter ic fracture of the left femur with trochanteric nail. Fracture alignment has improved. Distal screws are present. Linear radiodensities project over the operative bed are likely on the patient. Severe l eft hip osteoarthritis incidentally noted. IMPRESSION: Fluoroscopy provided during open reduction and internal fixation of the intertrochanteri c fracture of the left femur. ACT 112: Negative or not required by law. Electronically signed by: Wilfredo Corbett M.D. 11/08/2024 12:08 PM
--- NOTE | 2024-11-08 13:55 | CT Scan Report ---
EXAM: CT Abdomen and Pelvis With Intravenous Contrast INDICATION: Evaluate for bleeding TECHNIQUE: Axial computed tomography images of the abdomen and pelvis with intravenous contrast. Sagittal and coronal reformatted images were created and reviewed. This CT exam was performed using one or more of the following dose reduction techniques: automated exposure control, adjustment of the mA and/or kV according to patient size, and/or use of iterative reconstruction technique. CONTRAST: 93 ml of Optiray 320 was administered intravenously. COMPARISON: No relevant prior studies available. FINDINGS: Limitations: Portions of the right subcostal chest wall and upper abdominal wall not included. Lung bases and pleural space: Heart: Cardiomegaly. Small pericardial effusion noted. Dense mitral annular calcification is noted. Mediastinum: No abnormality noted. ABDOMEN: Liver: Normal size and contour. Hypodense typical of steatosis. No mass or ductal dilation. Gallbladder and bile ducts: Cholecystectomy. No ductal dilation or stone noted. Pancreas: Homogeneous enhancement. No mass, inflammation or ductal dilation. Spleen: No significant abnormality noted. Adrenals: Mild bilateral thickening. No measurable mass. Kidneys and ureters: There is a ill-defined hypodense area in the left renal midpole measuring approximately 2.7 x 1.4 x 0.9 cm. The right kidney appears normal. Stomach and bowel: No distension or mucosal thickening. No inflammation noted. PELVIS: Appendix: No findings to suggest acute appendicitis. Bladder: Gutierrez balloon inflated in the bladder which is collapsed and cannot be assessed. Reproductive: No abnormalities noted. ABDOMEN and PELVIS: Intraperitoneal space: No free air. No significant fluid collection. Bones/joints: Acute internally fixed left intertrochanteric femoral fracture noted. Degenerative changes present throughout the spine. There is moderate to severe degenerative change of the hips left greater than right. Soft tissues: There is a large hematoma and gas collection extending from the upper aspect of the left gluteal musculature tapering to the level of the proximal femur measuring maximal transverse dimension at the most confluent point of 11.9 cm in AP diameter of 7.3 cm. There is a small focus of acute hemorrhage in the lateral aspect of the hematoma at the level of the supra-acetabular iliac bone series 3 image 257/367. There is generalized surrounding subcutaneous contusion. Vasculature: Atherosclerotic calcification of the aorta and branches. No aneurysm. Lymph nodes: No pathologically enlarged lymph nodes. IMPRESSION: 1. Large subcutaneous hematoma extending from the upper left gluteal region to the proximal posterior left femur as above with small focus of acute hemorrhage in the lateral aspect of the hematoma. 2. Small bilateral pleural effusions and dependent atelectasis. 3. Ill-defined hypodensity left kidney could be a mass or a hyperdense cyst. Sonographic assessment is recommended when able. ACT 112: N/A Electronically signed by Ana Paula Stock 11-08-2024 13:54 PM
--- NOTE | 2024-11-08 14:00 | CT Scan Report ---
EXAM: CT Pelvis With Intravenous Contrast INDICATION: Rule out bleed TECHNIQUE: Axial computed tomography images of the pelvis with intravenous contrast. Sagittal and coronal reformatted images were created and reviewed. This CT exam was performed using one or more of the following dose reduction techniques: automated exposure control, adjustment of the mA and/or kV according to patient size, and/or use of iterative reconstruction technique. CONTRAST: 94ml of Optiray 320 was administered intravenously. COMPARISON: No relevant prior studies available. FINDINGS: Bowel: No abnormality noted. No obstruction. No mucosal thickening. Appendix: No findings to suggest acute appendicitis. Intraperitoneal space: No free air. No significant fluid collection. Bladder: No filling defects to suggest mass or large stone. No inflammation. Reproductive: No significant abnormality noted. Bones/joints: There is an acute intertrochanteric fracture of the left femur with slight displacement. Long femoral nail with proximal and distal locking hardware well-seated and intact. Severe degenerative change of the left hip noted. Soft tissues: Large irregular subcutaneous hematoma extends from the level of the upper aspect of the left gluteal musculature to the lateral skin surface inferiorly tracking within and along the gluteal musculature predominantly in the subcutaneous fat terminating posterior level of the proximal femoral shaft. Moderate amounts of associated gas present. The skin surface is not completely included. There are areas of acute hemorrhage in the lateral aspect of the hematoma (see images series 6 [id number]. Most confluent area of hematoma measures maximal transverse diameter of 10 cm, AP diameter of 8.1 cm. Maximum length is roughly 17.4 cm. There is generalized subcutaneous contusion and gas. There is gas along the gluteal musculature. There is subcutaneous edema and scattered gas along the lateral aspect of the femur. Vasculature: No abnormality noted. No lower abdominal aortic aneurysm. Lymph nodes: No abnormality noted. No enlarged lymph nodes. IMPRESSION: 1. Large predominantly subcutaneous but partially gluteal hematoma with areas of active bleeding as above. There is generalized edema of the left lower extremity. 2. Internally fixed acute fracture of the intertrochanteric left femur. ACT 112: N/A Electronically signed by Ana Paula Stock 11-08-2024 13:59 PM
--- NOTE | 2024-11-08 14:03 | CT Scan Report ---
EXAM: CT Pelvis With Intravenous Contrast INDICATION: Evaluate for bleeding TECHNIQUE: Axial computed tomography images of the pelvis with intravenous contrast. Sagittal and coronal reformatted images were created and reviewed. This CT exam was performed using one or more of the following dose reduction techniques: automated exposure control, adjustment of the mA and/or kV according to patient size, and/or use of iterative reconstruction technique. CONTRAST: 94ml of Optiray 320 was administered intravenously. COMPARISON: No relevant prior studies available. FINDINGS: Bones/joints: There is an acute nondisplaced fracture of the posterior aspect of the left inferior pubic ramus. There is an acute intertrochanteric fracture of the left femur with lateral displacement. Long femoral nail with proximal locking bolt well-seated and intact. Severe primary osteoarthritic change of the left hip noted. Soft tissues: There is diffuse subcutaneous contusion and hematoma beginning at the level of the upper gluteal musculature and partially involving the anterior gluteal muscular mass. Extensive subcutaneous gas noted. Areas of acute hemorrhage noted in the lateral aspect of the hematoma (series 4 images [id number] 20). Bladder: No filling defects to suggest mass or large stone. No inflammation. IMPRESSION: 1. Acute intertrochanteric fracture of the left femur with the visualized portion of the internal fixation hardware intact and well-seated. 2. Large predominantly subcutaneous hematoma from the upper left gluteal region to the proximal posterior left femur with areas of active bleeding as above. 3. There is an acute nondisplaced fracture of the posterior aspect of the left inferior pubic ramus. ACT 112: N/A Electronically signed by Ana Paula Stock 11-08-2024 2:02 PM
[2024-11-08] MEDS: AMIODARONE / D5W 360 MG/200 ML BAG IV SCH (14:23)
--- NOTE | 2024-11-08 16:25 | Communication Note ---
Date of Service: November 08, 2024 Critical care addendum: Repeat H&H showed that hemoglobin was 6.7. The patient was typed and screened and 2 units PRBC was decided to be given to the patient. Hemoglobin will be stopped CT of the left hip, left femur as well as abdomen pelvis were ordered which showed large hematoma around the gluteal region. I personally spoke with the radiologist and there was no blood vessel culprit which could be seen, as per the radiologist it was not a CT angio so she was not able to definitely say. I spoke with Dr. Fitch regarding the finding and he says no intervention from Ortho. Size. Just to compression dressing, '' bandage'' the site. This was relayed to the nursing. I will try to put the patient on ice packs on the left gluteal region. Will bleeding Case was discussed with cardiology. Initial discussion was with Kamar Tamez. Dr Gavin, cardiology where they do not have any CT physician till . Spoke with Sarah Garcia as well as Dr. Porter, Dr Shah from cardiac ICU. Patient will be accepted to CCU but only after her hemoglobin drop has been stabilized. She is already getting 2 units of PRBCs. I spoke with Ortho, they are not planning for any intervention. Just hold heparin and monitor H&H. Once we have H&H stable then we will try to get hold of her she and transfer her It could be later in the evening Dr. Lubin, cardiology were made aware of all the above talk with Sarah. I have personally spent 72 additional minutes of critical care time in the direct management of this patient. This is a life/limb threatening event. This includes time spent evaluating patient, direct bedside care, chart review, placing orders, interpretation of diagnostic studies, discussion with consultants, patient, and family members, as well as other required patient management activities. This time is exclusive of all separately billable procedures, and teaching time and separate from and in addition to any other critical care service time. Please note the above document was generated using voice recognition software. It may contain grammatical, syntax or spelling errors. Coding Level of Care Code 93209 CRITICAL CARE EA ADD 30M
[2024-11-08] MEDS ORDERED: METOCLOPRAMIDE HCL INJ 5 MG/ML 2 ML VIAL IV PRN (16:38)
--- NOTE | 2024-11-08 22:04 | Communication Note ---
Date of Service: November 08, 2024 S: Patient with plans to be transferred to [facility] CVICU for evaluation of support in light of her continued shock and aortic stenosis and mitral regurge. Case was discussed earlier in the day with ICU attending here and CVICU Attending at [facility]. Patient initially accepted with caveat of ensuring that bleeding in her surgical site has stabilized. Heparin infusion was stopped earlier in the day and patient was transfused 2 units of PRBCs. Her return HGB level shows stability 2 hours post transfusion with HGB increase from 6.2 to 8.2. Also with transfusion and stopping heparin, patient hemodynamic support has greatly decreased through the evening and is currently on 0.9 of LEVO as well as 0.04 of Vasopressin. [facility] was called back with the updated information in regards to her HGB. At that time, CVICU felt that patient would not be appropriate for their unit as there would be nothing at this time to offer, and was recommended to discuss case with STICU Attending Dr. Garcia. He was aware of the case and based on current bed availability, the patient would be wait listed for a SICU/STICU bed. At this time as patient is showing improvement as well as not being if failure or shock state and not currently likely to need mechanical support, is making adequate urine and with declining support, the transfer will be placed on hold. If anything changes in the night or patient status changes, will re- engage the CVICU team at [facility]. I discussed the above with my Attending Physician Dr. Peter, who is also in agreement with the above given her current state. Family (Son Vimal Lyman) was also updated with the above and has no questions or concerns with the above plan. Patient was also updated by myself and she is relieved as well that she will not need transfer at this time. Will continue following closely. Guille HAMMOND ([facility]
[2024-11-09 04:58] LABS: Hematocrit (blood only) 20.8 % (37.0-47.0); Hemoglobin 7.3 g/dl (12.0-16.0); White Blood Count 12.68 K/ul (4.8-10.8)
[2024-11-09] MEDS ORDERED: SODIUM CHLORIDE 0.9% 100 ML IV PRN (04:59)
[2024-11-09 05:03] LABS: Calcium 7.8 mg/dl (8.6-10.3); Creatinine Clr Calc Pharmacy 48.6 ml/min; Magnesium 1.9 mg/dl (1.7-2.4); Phosphorus 3.9 mg/dl (2.5-4.9); Potassium 3.7 mmol/L (3.5-5.1)
[2024-11-09 05:13] LABS: Mean Corpuscular Hemoglobin 29.2 pg (25.0-34.0); Mean Corpuscular Hgb Conc 35.1 g/dL (32.0-36.0); Mean Corpuscular Volume 83.2 fL (80.0-100.0); Platelet Count 90 K/uL (130-400); RDW Coefficient of Variation 16.3 % (11.5-14.5); RDW Standard Deviation 48.3 fL (36.4-46.3)
[2024-11-09 05:19] LABS: Basophils # (auto) 0.01 K/uL (0.00-0.20); Basophils % (auto) 0.1 %; Immature Granulocytes # (auto) 0.09 K/uL (0.01-0.20); Immature Granulocytes % (auto) 0.7 %; Lymphocytes # (auto) 1.57 K/uL (1.20-3.40); Lymphocytes % (auto) 12.4 %; Monocytes # (auto) 1.64 K/uL (0.11-0.59); Monocytes % (auto) 12.9 %; Neutrophils # (auto) 9.37 K/uL (1.40-6.50); Neutrophils % (auto) 73.9 %; Platelet Estimate Decreased (Normal); Polychromasia 1+
[2024-11-09] MEDS: POTASSIUM CHLORIDE / WTR 20 MEQ/100 ML PLCT IV SCH (06:21)
--- NOTE | 2024-11-09 07:58 | Orthopedic Progress Note ---
Date of Service November 09, 2024 Assessment & Plan (1) Closed left hip fracture: Plan: IMPRESSION: POD #2 s/p ORIF Left hip fracture, acute anemia blood loss, in A- fib, tachycardic, low BP with dressing change, remains in ICU PLAN: Acute anemia blood loss, transfused 11/08/24 When able OOB, WBAT with walker PT/OT DVT prophylaxis: Heparin currently on hold due to drop in Hgb, mechanical compression Continue care per Manager Green and Hospitalist service. Dressing changed 11/09/24 Admission and Anticipated Discharge Date Admission Date: November 06, 2024 Subjective Feeling better today Physical Exam Physical Exam: LLE: Able to wiggle toes & ankle. 2+ DP pulse. Calf soft but tender. Negative Celi. Dressings with serosanguineous drainage, incisions clean & intact. Results & Data Vital Signs (Past 12 Hours) Vital Signs Temp Pulse Resp BP Pulse Ox Pulse Ox O2 Del Method 11/09/24 06:38 36.6 C 102 H 18 122/51 L 98 11/09/24 06:08 36.6 C 75 18 134/59 L 100 11/09/24 06:06 74 21 100 11/09/24 05:53 36.6 C 73 18 160/64 H 100 11/09/24 05:46 114/58 L 11/09/24 05:46 114/58 L 11/09/24 05:46 114/58 L 11/09/24 05:42 81 21 100 11/09/24 05:36 84 21 100 11/09/24 05:35 36.6 C 85 18 112/49 L 100 11/09/24 05:31 111/67 11/09/24 05:27 86 23 100 11/09/24 05:16 111/59 L 11/09/24 05:06 92 H 21 100 11/09/24 04:45 86 21 100 11/09/24 04:41 36.5 C 11/09/24 04:30 117/71 11/09/24 04:30 117/71 11/09/24 04:18 89 19 100 11/09/24 04:15 97/66 L 11/09/24 04:15 97/66 L 11/09/24 04:15 97/66 L 11/09/24 04:12 105 H 23 100 11/09/24 04:06 91 H 23 100 05 04:00 95/63 L 11/09/24 04:00 76 128/52 L 11/09/24 03:54 96 H 21 100 11/09/24 03:45 108/70 05 03:45 108/70 11/09/24 03:30 118/82 05 03:30 118/82 05 03:21 87 18 100 11/09/24 03:15 98/70 L 11/09/24 03:15 98/70 L 11/09/24 03:06 90 18 100 11/09/24 03:00 107/63 11/09/24 03:00 107/63 11/09/24 03:00 107/63 11/09/24 03:00 98 H 16 100 11/09/24 02:45 103/63 11/09/24 02:45 103/63 11/09/24 02:31 107/85 11/09/24 02:31 107/85 11/09/24 02:15 90/60 L 11/09/24 02:09 90 19 100 11/09/24 02:03 87 18 100 11/09/24 02:00 125/77 05 02:00 125/77 11/09/24 02:00 125/77 11/09/24 01:54 82 18 100 11/09/24 01:45 111/84 05 01:45 111/84 11/09/24 01:39 82 18 100 11/09/24 01:30 123/65 05 01:30 123/65 05 01:30 123/65 05 01:30 90 18 100 05 01:15 98/73 L 11/09/24 01:09 76 18 100 11/09/24 01:03 77 18 100 05 01:00 111/69 05 01:00 111/69 05 01:00 111/ 05 01:00 111/69 05 01:00 111/69 05 00:54 85 18 100 05 00:46 105/68 05 00:46 105/68 05/25 00:39 75 18 100 11/09/24 00:39 88 11/09/24 00:30 82 25 H 100 11/09/24 00:00 36.5 C 11/09/24 00:00 79 23 100 11/09/24 00:00 85 121/54 L 11/08/24 23:45 88 24 100 11/08/24 23:45 103/59 L 11/08/24 23:45 103/59 L 11/08/24 23:33 89 24 100 11/08/24 23:30 84/58 L 11/08/24 23:30 84/58 L 11/08/24 23:30 84/58 L 11/08/24 23:27 96 H 23 100 11/08/24 23:15 107/59 L 11/08/24 23:12 94 H 21 100 11/08/24 23:09 87 16 11/08/24 23:09 99/67 L 11/08/24 23:09 99/67 L 11/08/24 23:09 99/67 L 11/08/24 23:09 99/67 L 11/08/24 23:06 81 22 100 11/08/24 23:00 100 11/08/24 22:54 79 17 100 11/08/24 22:45 96 H 18 100 11/08/24 22:45 105/77 11/08/24 22:42 87 18 93 11/08/24 22:30 116/85 11/08/24 22:30 116/85 11/08/24 22:30 116/85 11/08/24 22:30 116/85 11/08/24 22:21 81 24 100 11/08/24 22:18 69 24 100 11/08/24 22:16 123/95 11/08/24 22:16 123/95 11/08/24 22:16 123/95 11/08/24 22:00 122/74 11/08/24 22:00 122/74 11/08/24 22:00 122/74 11/08/24 21:57 36.6 C 11/08/24 21:55 Nasal Cannula 11/08/24 21:51 85 28 H 100 11/08/24 21:36 77 22 100 11/08/24 21:32 114/83 11/08/24 21:15 113/85 11/08/24 21:15 113/85 11/08/24 21:06 79 22 100 11/08/24 21:01 117/80 11/08/24 21:01 117/80 11/08/24 20:57 76 23 100 11/08/24 20:51 73 22 100 11/08/24 20:45 146/75 H 11/08/24 20:45 146/75 H 11/08/24 20:31 113/63 11/08/24 20:31 113/63 11/08/24 20:20 77 19 100 11/08/24 20:15 130/78 11/08/24 20:15 130/78 11/08/24 20:08 76 25 H 100 11/08/24 20:00 127/75 11/08/24 20:00 88 114/50 L O2 Del Method O2 Flow Rate O2 Flow Rate 11/09/24 06:38 4 11/09/24 06:08 4 11/09/24 06:06 11/09/24 05:53 4 11/09/24 05:46 11/09/24 05:46 11/09/24 05:46 11/09/24 05:42 11/09/24 05:36 11/09/24 05:35 4 11/09/24 05:31 11/09/24 05:27 11/09/24 05:16 11/09/24 05:06 11/09/24 04:45 11/09/24 04:41 11/09/24 04:30 11/09/24 04:30 11/09/24 04:18 11/09/24 04:15 11/09/24 04:15 11/09/24 04:15 11/09/24 04:12 11/09/24 04:06 11/09/24 04:00 11/09/24 04:00 11/09/24 03:54 11/09/24 03:45 11/09/24 03:45 11/09/24 03:30 11/09/24 03:30 11/09/24 03:21 11/09/24 03:15 11/09/24 03:15 11/09/24 03:06 11/09/24 03:00 11/09/24 03:00 11/09/24 03:00 11/09/24 03:00 11/09/24 02:45 11/09/24 02:45 11/09/24 02:31 11/09/24 02:31 11/09/24 02:15 11/09/24 02:09 11/09/24 02:03 11/09/24 02:00 11/09/24 02:00 11/09/24 02:00 11/09/24 01:54 11/09/24 01:45 11/09/24 01:45 11/09/24 01:39 11/09/24 01:30 11/09/24 01:30 11/09/24 01:30 11/09/24 01:30 11/09/24 01:15 11/09/24 01:09 11/09/24 01:03 11/09/24 01:00 11/09/24 01:00 11/09/24 01:00 11/09/24 01:00 11/09/24 01:00 11/09/24 00:54 11/09/24 00:46 11/09/24 00:46 11/09/24 00:39 11/09/24 00:39 11/09/24 00:30 11/09/24 00:00 11/09/24 00:00 11/09/24 00:00 11/08/24 23:45 11/08/24 23:45 11/08/24 23:45 11/08/24 23:33 11/08/24 23:30 11/08/24 23:30 11/08/24 23:30 11/08/24 23:27 11/08/24 23:15 11/08/24 23:12 11/08/24 23:09 11/08/24 23:09 11/08/24 23:09 11/08/24 23:09 11/08/24 23:09 11/08/24 23:06 11/08/24 23:00 Nasal Cannula 4 11/08/24 22:54 11/08/24 22:45 11/08/24 22:45 11/08/24 22:42 11/08/24 22:30 11/08/24 22:30 11/08/24 22:30 11/08/24 22:30 11/08/24 22:21 11/08/24 22:18 11/08/24 22:16 11/08/24 22:16 11/08/24 22:16 11/08/24 22:00 11/08/24 22:00 11/08/24 22:00 11/08/24 21:57 11/08/24 21:55 4 11/08/24 21:51 11/08/24 21:36 11/08/24 21:32 11/08/24 21:15 11/08/24 21:15 11/08/24 21:06 11/08/24 21:01 11/08/24 21:01 11/08/24 20:57 11/08/24 20:51 11/08/24 20:45 11/08/24 20:45 11/08/24 20:31 11/08/24 20:31 11/08/24 20:20 11/08/24 20:15 11/08/24 20:15 11/08/24 20:08 11/08/24 20:00 11/08/24 20:00 Laboratory Results Laboratory Results WBC 12.68 K/ul (4.8-10.8) H 11/09/24 04:09 RBC 2.50 M/uL (4.20-5.40) L 11/09/24 04:09 Hgb 7.3 g/dl (12.0-16.0) L 11/09/24 04:09 POC Hgb 7.1 g/dl (12.0-16.0) L 11/08/24 04:19 Hct 20.8 % (37.0-47.0) L* 11/09/24 04:09 POC Hct 21 % (37-47) L 11/08/24 04:19 MCV 83.2 fL (80.0-100.0) D 11/09/24 04:09 MCH 29.2 pg (25.0-34.0) 11/09/24 04:09 MCHC 35.1 g/dL (32.0-36.0) 11/09/24 04:09 RDW Std Deviation 48.3 fL (36.4-46.3) H 11/09/24 04:09 RDW Coeff of Gifty 16.3 % (11.5-14.5) H 11/09/24 04:09 Plt Count 90 K/uL (130-400) L 11/09/24 04:09 MPV 11.0 fL (9.4-12.4) 11/09/24 04:09 Immature Gran % (Auto) 0.7 % 11/09/24 04:09 Neut % (Auto) 73.9 % 11/09/24 04:09 Lymph % (Auto) 12.4 % 11/09/24 04:09 Moffat % (Auto) 12.9 % 11/09/24 04:09 Eos % (Auto) 0.0 % 11/09/24 04:09 Baso % (Auto) 0.1 % 11/09/24 04:09 Neut # (Auto) 9.37 K/uL (1.40-6.50) H 11/09/24 04:09 Lymph # (Auto) 1.57 K/uL (1.20-3.40) 11/09/24 04:09 Moffat # (Auto) 1.64 K/uL (0.11-0.59) H 11/09/24 04:09 Eos # (Auto) 0.00 K/uL (0.00-0.50) 11/09/24 04:09 Baso # (Auto) 0.01 K/uL (0.00-0.20) 11/09/24 04:09 Immature Gran # (Auto) 0.09 K/uL (0.01-0.20) 11/09/24 04:09 Platelet Estimate Decreased (Normal) L 11/09/24 04:09 RBC Morphology Unremarkable 11/08/24 04:27 Polychromasia 1+ 11/09/24 04:09 PT 13.5 Seconds (9.0-12.0) H 11/07/24 18:42 INR 1.3 (0.9-1.1) H 11/07/24 18:42 APTT 28 Seconds (21-31) 11/07/24 18:42 PTT Ratio 1.0 11/07/24 18:42 Heparin Anti-Xa, Unfract 0.47 IU/ml (0.3-0.7) 11/08/24 04:27 Specimen Type Arterial 11/08/24 04:19 Sample Site Art Line 11/08/24 04:19 POC pH 7.36 (7.35-7.45) 11/08/24 04:19 POC pCO2 38 mmHg (35-46) 11/08/24 04:19 POC pO2 21 mmHg (80-95) L 11/08/24 04:19 POC HCO3 22 john/L (19-24) 11/08/24 04:19 POC Total CO2 23 mmol/L (24-31) L 11/08/24 04:19 POC Base Excess -4.0 john/L (-9-1.8) 11/08/24 04:19 O2 Sat Pulse Oximetry 100 11/08/24 04:19 ABG pH (Temp Correct) 7.364 (7.35-7.45) 11/08/24 04:19 ABG pCO2 (Temp Corrct 38 mmHg (35-46) 11/08/24 04:19 POC ABG pO2 at Pt Temp 20 11/08/24 04:19 POC ABG O2 Sat 33.0 % (90-95) L 11/08/24 04:19 Moe Test NA 11/08/24 04:19 O2 Delivery Device Cannula 11/08/24 04:19 POC Sodium 138 mmol/L (135-144) 11/08/24 04:19 Sodium 135 mmol/L (136-145) L 11/09/24 04:09 POC Potassium 3.7 mmol/L (3.3-5.0) 11/08/24 04:19 Potassium 3.7 mmol/L (3.5-5.1) 11/09/24 04:09 Chloride 105 mmol/L (98-107) 11/09/24 04:09 Carbon Dioxide 22 mmol/L (21-32) 11/09/24 04:09 Anion Gap 8 (3-11) 11/09/24 04:09 BUN 26 mg/dl (6-23) H 11/09/24 04:09 Creatinine 1.30 mg/dl (0.6-1.2) H 11/09/24 04:09 Est Cr Clr Drug Dosing 48.6 ml/min 11/09/24 04:09 eGFR 43.15 11/09/24 04:09 BUN/Creatinine Ratio 20.0 (10-20) 11/09/24 04:09 Glucose 170 mg/dl (70-99(Fasting)) H 11/09/24 04:09 Estimat Average Glucose 100 mg/dl 11/07/24 05:44 Hemoglobin A1c 5.1 % (4.5-5.6) 11/07/24 05:44 Lactate 1.4 mmol/L (0.4-2.0) 11/08/24 04:27 Calcium 7.8 mg/dl (8.6-10.3) L 11/09/24 04:09 Phosphorus 3.9 mg/dl (2.5-4.9) 11/09/24 04:09 Magnesium 1.9 mg/dl (1.7-2.4) 11/09/24 04:09 Total Bilirubin 1.9 mg/dl (0.2-1.0) H D 11/07/24 17:02 AST 23 U/L (13-39) 11/07/24 17:02 ALT 11 U/L (7-52) 11/07/24 17:02 Alkaline Phosphatase 39 U/L (34-104) 11/07/24 17:02 Total Creatine Kinase 27 U/L (26-192) 11/07/24 05:44 Troponin I High Sens 7.8 pg/ml (0-14) 11/07/24 05:44 B-Natriuretic Peptide 471 pg/ml (0-100) H 11/08/24 08:37 Total Protein 6.0 gm/dl (6.0-8.3) D 11/07/24 17:02 Albumin 3.1 gm/dl (3.4-5.0) L 11/07/24 17:02 Globulin 2.9 gm/dl (2.5-4.0) 11/07/24 17:02 Albumin/Globulin Ratio 1.1 (0.9-2) 11/07/24 17:02 Random Cortisol 23.54 mcg/dl 11/07/24 17:02 Nasal Screen MRSA (PCR) Negative (Negative) 11/07/24 Unknown Hepatitis C Ab Screen Negative (Negative) 11/06/24 19:57 Blood Type A Positive 11/08/24 11:33 Blood Type Recheck A Positive 11/08/24 10:59 Antibody Screen NEGATIVE 11/08/24 11:33 Crossmatch See Detail 11/08/24 11:33 Impressions Hip/Pelvis X-Ray 11/06/24 20:00 Exam(s): XR HIP + PELVIS, 1 view EXAM: XR Left Hip With Pelvis When Performed, 2 or 3 Views CLINICAL HISTORY: Reason for exam: Hip fracture. TECHNIQUE: Two or three views of the left hip with pelvis when performed. COMPARISON: No relevant prior studies available. IMPRESSION: Limited views. There is an acute intertrochanteric fracture of the proximal left femur with mild displacement. Advanced degenerative arthropathy is noted at the left hip joint. 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 Fluoroscopy time: 4 minutes and 41 seconds. Number of fluoroscopic images: 6. Ka,r: 87.18 mGy. FINDINGS: Fluoroscopy was provided during open reduction and internal fixation of the intertrochanteric fracture of the left femur with trochanteric nail. Fracture alignment has improved. Distal screws are present. Linear radiodensities project over the operative bed are likely on the patient. Severe left hip osteoarthritis incidentally noted. IMPRESSION: Fluoroscopy provided during open reduction and internal fixation of the intertrochanteric fracture of the left femur. ACT 112: Negative or not required by law. Electronically signed by: Wilfredo Corbett M.D. 11/08/2024 12:08 PM Chest X-Ray 11/08/24 07:40 Technique: A frontal view of the chest was obtained Comparison is made to the prior examination dated 11/07/2024 Findings: There is suspected mild pulmonary edema. The heart is enlarged. No pleural effusion or pneumothorax is seen. There is an unchanged right jugular central venous line with its tip in the lower SVC No fracture is noted. No foreign body is seen Impression: Cardiomegaly and mild pulmonary edema ACT 112: Positive. There are findings on this exam that require communication between the performing entity and the patient following Patient Test Result Information Act ([place] ACT 112) guidelines. Electronically signed by Vladimir Dickson 11-08-2024 08:[address] 11/08/24 11:21 EXAM: CT Pelvis With Intravenous Contrast INDICATION: Rule out bleed TECHNIQUE: Axial computed tomography images of the pelvis with intravenous contrast. Sagittal and coronal reformatted images were created and reviewed. This CT exam was performed using one or more of the following dose reduction techniques: automated exposure control, adjustment of the mA and/or kV according to patient size, and/or use of iterative reconstruction technique. CONTRAST: 94ml of Optiray 320 was administered intravenously. COMPARISON: No relevant prior studies available. FINDINGS: Bowel: No abnormality noted. No obstruction. No mucosal thickening. Appendix: No findings to suggest acute appendicitis. Intraperitoneal space: No free air. No significant fluid collection. Bladder: No filling defects to suggest mass or large stone. No inflammation. Reproductive: No significant abnormality noted. Bones/joints: There is an acute intertrochanteric fracture of the left femur with slight displacement. Long femoral nail with proximal and distal locking hardware well-seated and intact. Severe degenerative change of the left hip noted. Soft tissues: Large irregular subcutaneous hematoma extends from the level of the upper aspect of the left gluteal musculature to the lateral skin surface inferiorly tracking within and along the gluteal musculature predominantly in the subcutaneous fat terminating posterior level of the proximal femoral shaft. Moderate amounts of associated gas present. The skin surface is not completely included. There are areas of acute hemorrhage in the lateral aspect of the hematoma (see images series 6 [id number]. Most confluent area of hematoma measures maximal transverse diameter of 10 cm, AP diameter of 8.1 cm. Maximum length is roughly 17.4 cm. There is generalized subcutaneous contusion and gas. There is gas along the gluteal musculature. There is subcutaneous edema and scattered gas along the lateral aspect of the femur. Vasculature: No abnormality noted. No lower abdominal aortic aneurysm. Lymph nodes: No abnormality noted. No enlarged lymph nodes. IMPRESSION: 1. Large predominantly subcutaneous but partially gluteal hematoma with areas of active bleeding as above. There is generalized edema of the left lower extremity. 2. Internally fixed acute fracture of the intertrochanteric left femur. ACT 112: N/A Electronically signed by Ana Paula Stock 11-08-2024 13:[address] 11/08/24 11:21 EXAM: CT Pelvis With Intravenous Contrast INDICATION: Evaluate for bleeding TECHNIQUE: Axial computed tomography images of the pelvis with intravenous contrast. Sagittal and coronal reformatted images were created and reviewed. This CT exam was performed using one or more of the following dose reduction techniques: automated exposure control, adjustment of the mA and/or kV according to patient size, and/or use of iterative reconstruction technique. CONTRAST: 94ml of Optiray 320 was administered intravenously. COMPARISON: No relevant prior studies available. FINDINGS: Bones/joints: There is an acute nondisplaced fracture of the posterior aspect of the left inferior pubic ramus. There is an acute intertrochanteric fracture of the left femur with lateral displacement. Long femoral nail with proximal locking bolt well-seated and intact. Severe primary osteoarthritic change of the left hip noted. Soft tissues: There is diffuse subcutaneous contusion and hematoma beginning at the level of the upper gluteal musculature and partially involving the anterior gluteal muscular mass. Extensive subcutaneous gas noted. Areas of acute hemorrhage noted in the lateral aspect of the hematoma (series 4 images [id number] 20). Bladder: No filling defects to suggest mass or large stone. No inflammation. IMPRESSION: 1. Acute intertrochanteric fracture of the left femur with the visualized portion of the internal fixation hardware intact and well-seated. 2. Large predominantly subcutaneous hematoma from the upper left gluteal region to the proximal posterior left femur with areas of active bleeding as above. 3. There is an acute nondisplaced fracture of the posterior aspect of the left inferior pubic ramus. ACT 112: N/A Electronically signed by Ana Paula Stock 11-08-2024 2:02 PM Abdomen/Pelvis CT 11/08/24 11:26 EXAM: CT Abdomen and Pelvis With Intravenous Contrast INDICATION: Evaluate for bleeding TECHNIQUE: Axial computed tomography images of the abdomen and pelvis with intravenous contrast. Sagittal and coronal reformatted images were created and reviewed. This CT exam was performed using one or more of the following dose reduction techniques: automated exposure control, adjustment of the mA and/or kV according to patient size, and/or use of iterative reconstruction technique. CONTRAST: 93 ml of Optiray 320 was administered intravenously. COMPARISON: No relevant prior studies available. FINDINGS: Limitations: Portions of the right subcostal chest wall and upper abdominal wall not included. Lung bases and pleural space: Heart: Cardiomegaly. Small pericardial effusion noted. Dense mitral annular calcification is noted. Mediastinum: No abnormality noted. ABDOMEN: Liver: Normal size and contour. Hypodense typical of steatosis. No mass or ductal dilation. Gallbladder and bile ducts: Cholecystectomy. No ductal dilation or stone noted. Pancreas: Homogeneous enhancement. No mass, inflammation or ductal dilation. Spleen: No significant abnormality noted. Adrenals: Mild bilateral thickening. No measurable mass. Kidneys and ureters: There is a ill-defined hypodense area in the left renal midpole measuring approximately 2.7 x 1.4 x 0.9 cm. The right kidney appears normal. Stomach and bowel: No distension or mucosal thickening. No inflammation noted. PELVIS: Appendix: No findings to suggest acute appendicitis. Bladder: Gutierrez balloon inflated in the bladder which is collapsed and cannot be assessed. Reproductive: No abnormalities noted. ABDOMEN and PELVIS: Intraperitoneal space: No free air. No significant fluid collection. Bones/joints: Acute internally fixed left intertrochanteric femoral fracture noted. Degenerative changes present throughout the spine. There is moderate to severe degenerative change of the hips left greater than right. Soft tissues: There is a large hematoma and gas collection extending from the upper aspect of the left gluteal musculature tapering to the level of the proximal femur measuring maximal transverse dimension at the most confluent point of 11.9 cm in AP diameter of 7.3 cm. There is a small focus of acute hemorrhage in the lateral aspect of the hematoma at the level of the supra-acetabular iliac bone series 3 image 257/367. There is generalized surrounding subcutaneous contusion. Vasculature: Atherosclerotic calcification of the aorta and branches. No aneurysm. Lymph nodes: No pathologically enlarged lymph nodes. IMPRESSION: 1. Large subcutaneous hematoma extending from the upper left gluteal region to the proximal posterior left femur as above with small focus of acute hemorrhage in the lateral aspect of the hematoma. 2. Small bilateral pleural effusions and dependent atelectasis. 3. Ill-defined hypodensity left kidney could be a mass or a hyperdense cyst. Sonographic assessment is recommended when able. ACT 112: N/A Electronically signed by Ana Paula Stock 11-08-2024 13:54 PM
--- NOTE | 2024-11-09 08:11 | Critical Care Progress Note ---
Date of Service November 09, 2024 Assessment & Plan (1) Atrial fibrillation: (2) Closed fracture of left hip: (3) Chronic heart failure with preserved ejection fraction: (4) Severe pulmonary hypertension: (5) Atrial fibrillation with controlled ventricular response: (6) Severe mitral valve stenosis: (7) Shock circulatory: (8) Ex-smoker: (9) Aortic stenosis: (10) Acute blood loss anemia: Plan Reason Critically Ill: 74-year-old female, mother of surgeon Dr. Lyman admitted to the hospital for hip fracture s/p repair, was hypotensive in the PACU sent to the ICU for further care Past medical history: Severe mitral stenosis, mild aortic stenosis Neuro - [facility]: Negative Cardiac - 2D echo 11/07/2024: EF 60-65%, moderate concentric LVH, LA severely dilated, mild to moderate aortic stenosis, PASP 71 mmHg --Shock Multifactorial Cardiac etiology with severe MS and moderate is playing a role on top of pulmonary hypertension Hemorrhagic given the significant hematoma at the surgical site BNP 625 --> 471 Continue with vasopressor support to keep MAP greater than 65 Avoid hypotension given the severe pulmonary hypertension -- Severe pulmonary hypertension Type II likely from severe mitral stenosis as well as aortic stenosis Try to avoid hypotension but also avoid prevent severe afterload increase --New onset A-fib [id number] 2 Unfortunately not able to anticoagulate Amiodarone needed to be started because of hemodynamically instability after discussion with cardiology She was also given digoxin 250 mcg --History of hypertension On carvedilol, hydrochlorothiazide as well as losartan at home Respiratory - -- Acute hypoxic respiratory failure Likely from mild pulmonary edema as well as dependent atelectasis O2 supplementation to keep oxygen saturation between 90-92% Incentive spirometry --Ex-smoker Approximately [id number] smoking history Quit 3 years ago Recommend PFT as an outpatient GI - -- No acute issues RENAL/LYTES - --Urine output has not been great but her BUN/creatinine has been within normal limits Continue to monitor BUNs/creatinine ENDO - -- ICU hypoglycemia protocol HEME - -- Large hematoma of the left gluteal region Likely postsurgical on top of patient needing the heparin S/p 3 units of PRBC --New onset thrombocytopenia Likely consumption Will repeat CBC later today if they are trending down and the patient's hemoglobin is also trending down then platelets will also be transfused ID - -- No source of infection Musculoskeletal - -- Acute left intertrochanteric fracture S/p surgery 11/07/2024 --Prophylaxis VTE: IPC GI: Pantoprazole Lines: Right IJ, left radial, Gutierrez Diet: N.p.o. Plan: In/out: +3 L, urine output 545 mL Will repeat CBC later today if they are trending down and the patient's hemoglobin is also trending down then platelets will also be transfused Continue with hydrocortisone Potassium and magnesium being replaced Case was discussed with Ortho. Patient's family including son was updated regarding patient's condition. I have personally spent 40 minutes of critical care time in the direct management of this patient. This is a life/limb threatening event. This includes time spent evaluating patient, direct bedside care, chart review, placing orders, interpretation of diagnostic studies, discussion with consultants, patient, and family members, as well as other required patient management activities. This time is exclusive of all separately billable procedures, and teaching time and separate from and in addition to any other critical care service time. Admission and Anticipated Discharge Date Admission Date: November 06, 2024 Subjective Patient seen and examined at bedside. No acute distress, no adverse events overnight She was on 0.03 of Levophed and 0.04 of vasopressin at the time of examination SBP's were in the 100s. She was feeling more energetic compared to yesterday Denied any abdominal pain. Did have some nausea yesterday but did not throw up No headache, no blurry vision No palpitations Review of Systems 2 Review of Systems: All systems reviewed & are unremarkable except as noted in Subjective Physical Exam 2 Physical Exam: Constitutional: No acute distress HEENT: EOMI, PERRLA Respiratory system: Good air entry bilaterally, no wheeze, no rhonchi, positive crackles bilateral lower lobes, more on the left side CVS: S1-S2 positive, positive 4 out of 6 systolic murmur appreciated best at apex Abdomen: Soft, nontender, nondistended, positive bowel sounds x4, obese Extremities: +1 pulses bilaterally radialis/ dorsalis pedis, no cyanosis, +1 pitting edema bilateral lower extremity Neuro: Awake alert oriented x3 Psych: Normal mood and affect G/U: Positive Gutierrez Skin: no rashes, warm and dry Lymphatic: no cervical or axillary lymphadenopathy Results & Data Results & Data Vital Signs (Past 12 Hours) Vital Signs Temp Pulse Resp BP Pulse Ox Pulse Ox O2 Del Method 11/09/24 06:38 36.6 C 102 H 18 122/51 L 98 11/09/24 06:08 36.6 C 75 18 134/59 L 100 11/09/24 06:06 74 21 100 11/09/24 05:53 36.6 C 73 18 160/64 H 100 11/09/24 05:46 114/58 L 11/09/24 05:46 114/58 L 11/09/24 05:46 114/58 L 11/09/24 05:42 81 21 100 11/09/24 05:36 84 21 100 11/09/24 05:35 36.6 C 85 18 112/49 L 100 11/09/24 05:31 111/67 11/09/24 05:27 86 23 100 11/09/24 05:16 111/59 L 11/09/24 05:06 92 H 21 100 11/09/24 04:45 86 21 100 11/09/24 04:41 36.5 C 11/09/24 04:30 117/71 11/09/24 04:30 117/71 11/09/24 04:18 89 19 100 11/09/24 04:15 97/66 L 11/09/24 04:15 97/66 L 11/09/24 04:15 97/66 L 11/09/24 04:12 105 H 23 100 11/09/24 04:06 91 H 23 100 11/09/24 04:00 95/63 L 11/09/24 04:00 76 128/52 L 11/09/24 03:54 96 H 21 100 11/09/24 03:45 108/70 11/09/24 03:45 108/70 11/09/24 03:30 118/82 11/09/24 03:30 118/82 11/09/24 03:21 87 18 100 11/09/24 03:15 98/70 L 11/09/24 03:15 98/70 L 11/09/24 03:06 90 18 100 11/09/24 03:00 107/63 11/09/24 03:00 107/63 11/09/24 03:00 107/63 11/09/24 03:00 98 H 16 100 11/09/24 02:45 103/63 11/09/24 02:45 103/63 11/09/24 02:31 107/85 11/09/24 02:31 107/85 11/09/24 02:15 90/60 L 11/09/24 02:09 90 19 100 11/09/24 02:03 87 18 100 11/09/24 02:00 125/77 11/09/24 02:00 125/77 11/09/24 02:00 125/77 11/09/24 01:54 82 18 100 11/09/24 01:45 111/84 11/09/24 01:45 111/84 11/09/24 01:39 82 18 100 11/09/24 01:30 123/65 11/09/24 01:30 123/65 11/09/24 01:30 123/65 11/09/24 01:30 90 18 100 11/09/24 01:15 98/73 L 11/09/24 01:09 76 18 100 11/09/24 01:03 77 18 100 11/09/24 01:00 111/69 11/09/24 01:00 111/69 11/09/24 01:00 111/69 11/09/24 01:00 111/69 11/09/24 01:00 111/69 11/09/24 00:54 85 18 100 11/09/24 00:46 105/68 11/09/24 00:46 105/68 11/09/24 00:39 75 18 100 11/09/24 00:39 88 11/09/24 00:30 82 25 H 100 11/09/24 00:00 36.5 C 11/09/24 00:00 79 23 100 11/09/24 00:00 85 121/54 L 11/08/24 23:45 88 24 100 11/08/24 23:45 103/59 L 11/08/24 23:45 103/59 L 11/08/24 23:33 89 24 100 11/08/24 23:30 84/58 L 11/08/24 23:30 84/58 L 11/08/24 23:30 84/58 L 11/08/24 23:27 96 H 23 100 11/08/24 23:15 107/59 L 11/08/24 23:12 94 H 21 100 0525 23:09 87 16 11/08/24 23:09 99/67 L 11/08/24 23:09 99/67 L 11/08/24 23:09 99/67 L 11/08/24 23:09 99/67 L 11/08/24 23:06 81 22 100 11/08/24 23:00 100 11/08/24 22:54 79 17 100 11/08/24 22:45 96 H 18 100 11/08/24 22:45 105/77 11/08/24 22:42 87 18 93 11/08/24 22:30 116/85 11/08/24 22:30 116/85 11/08/24 22:30 116/85 11/08/24 22:30 116/85 11/08/24 22:21 81 24 100 11/08/24 22:18 69 24 100 11/08/24 22:16 123/95 11/08/24 22:16 123/95 11/08/24 22:16 123/95 11/08/24 22:00 122/74 11/08/24 22:00 122/74 11/08/24 22:00 122/74 11/08/24 21:57 36.6 C 11/08/24 21:55 Nasal Cannula 11/08/24 21:51 85 28 H 100 11/08/24 21:36 77 22 100 11/08/24 21:32 114/83 11/08/24 21:15 113/85 11/08/24 21:15 113/85 11/08/24 21:06 79 22 100 11/08/24 21:01 117/80 11/08/24 21:01 117/80 11/08/24 20:57 76 23 100 11/08/24 20:51 73 22 100 11/08/24 20:45 146/75 H 11/08/24 20:45 146/75 H 11/08/24 20:31 113/63 11/08/24 20:31 113/63 11/08/24 20:20 77 19 100 11/08/24 20:15 130/78 11/08/24 20:15 130/78 11/08/24 20:08 76 25 H 100 O2 Del Method O2 Flow Rate O2 Flow Rate 11/09/24 06:38 4 11/09/24 06:08 4 11/09/24 06:06 11/09/24 05:53 4 11/09/24 05:46 11/09/24 05:46 11/09/24 05:46 11/09/24 05:42 11/09/24 05:36 11/09/24 05:35 4 11/09/24 05:31 11/09/24 05:27 11/09/24 05:16 11/09/24 05:06 11/09/24 04:45 11/09/24 04:41 11/09/24 04:30 11/09/24 04:30 11/09/24 04:18 11/09/24 04:15 11/09/24 04:15 11/09/24 04:15 11/09/24 04:12 11/09/24 04:06 11/09/24 04:00 11/09/24 04:00 11/09/24 03:54 11/09/24 03:45 11/09/24 03:45 11/09/24 03:30 11/09/24 03:30 11/09/24 03:21 11/09/24 03:15 11/09/24 03:15 11/09/24 03:06 11/09/24 03:00 11/09/24 03:00 11/09/24 03:00 11/09/24 03:00 11/09/24 02:45 11/09/24 02:45 11/09/24 02:31 11/09/24 02:31 11/09/24 02:15 11/09/24 02:09 11/09/24 02:03 11/09/24 02:00 11/09/24 02:00 11/09/24 02:00 11/09/24 01:54 11/09/24 01:45 11/09/24 01:45 11/09/24 01:39 11/09/24 01:30 11/09/24 01:30 11/09/24 01:30 11/09/24 01:30 11/09/24 01:15 11/09/24 01:09 11/09/24 01:03 11/09/24 01:00 11/09/24 01:00 11/09/24 01:00 11/09/24 01:00 11/09/24 01:00 11/09/24 00:54 11/09/24 00:46 11/09/24 00:46 11/09/24 00:39 11/09/24 00:39 11/09/24 00:30 11/09/24 00:00 11/09/24 00:00 11/09/24 00:00 11/08/24 23:45 11/08/24 23:45 11/08/24 23:45 11/08/24 23:33 11/08/24 23:30 11/08/24 23:30 11/08/24 23:30 11/08/24 23:27 11/08/24 23:15 11/08/24 23:12 11/08/24 23:09 11/08/24 23:09 11/08/24 23:09 11/08/24 23:09 11/08/24 23:09 11/08/24 23:06 11/08/24 23:00 Nasal Cannula 4 11/08/24 22:54 11/08/24 22:45 11/08/24 22:45 11/08/24 22:42 11/08/24 22:30 11/08/24 22:30 11/08/24 22:30 11/08/24 22:30 11/08/24 22:21 11/08/24 22:18 11/08/24 22:16 11/08/24 22:16 11/08/24 22:16 11/08/24 22:00 11/08/24 22:00 11/08/24 22:00 11/08/24 21:57 11/08/24 21:55 4 11/08/24 21:51 11/08/24 21:36 11/08/24 21:32 11/08/24 21:15 11/08/24 21:15 11/08/24 21:06 11/08/24 21:01 11/08/24 21:01 11/08/24 20:57 11/08/24 20:51 11/08/24 20:45 11/08/24 20:45 11/08/24 20:31 11/08/24 20:31 11/08/24 20:20 11/08/24 20:15 11/08/24 20:15 11/08/24 20:08 Laboratory Results 11/09/24 04:09 11/09/24 04:09 Coding Level of Care Code 01309 CRITICAL CARE 1ST 30-74M Diagnoses Atrial fibrillation I48.91 Atrial fibrillation type: unspecified Closed fracture of left hip S72.002A Encounter type: initial encounter Chronic heart failure with preserved ejection fraction I50.32 Severe pulmonary hypertension I27.20 Atrial fibrillation with controlled ventricular response I48.91 Severe mitral valve stenosis I05.0 Shock circulatory R57.9 Ex-smoker Z87.891 Aortic stenosis I35.0 Acute blood loss anemia D62 (1) Atrial fibrillation Atrial fibrillation type: unspecified Qualified Code(s): I48.91 - Unspecified atrial fibrillation (2) Closed fracture of left hip Encounter type: initial encounter Qualified Code(s): S72.002A - Fracture of unspecified part of neck of left femur, initial encounter for closed fracture
--- NOTE | 2024-11-09 08:39 | Cardiology Progress Note ---
Date of Service November 09, 2024 Assessment & Plan (1) Severe mitral valve stenosis: (2) Moderate mitral regurgitation: (3) Aortic stenosis: (4) Atrial fibrillation with controlled ventricular response: (5) Severe pulmonary hypertension: (6) Chronic heart failure with preserved ejection fraction: (7) Shock circulatory: Plan Assessment: Complex 74-year-old female presents with mechanical fall and acute left hip fracture. She was deemed high perioperative cardiovascular risk due to severe mitral valve stenosis with severe pulmonary hypertension. Moderate mitral regurgitation and mild to moderate aortic valve stenosis also noted. LV systolic function preserved without regional wall motion abnormality. High- sensitivity troponins are normal. She does not appear volume overloaded on exam. Surgery was considered urgent and necessary due to acute fracture and intractable pain managed with narcotic medication. Plan: 11/08/2024: -Patient is quite ill remaining in critical care status. Blood pressures were quite labile post-operatively requiring pressure support. Critical care medicine is currently utilizing Vasopression and Norepinephrine gtts to maintain a MAP goal above 65. -Review of telemetry shows Atrial fibrillation rates 80's, a-fib likely secondary to her severe mitral stenosis complicated by her acute presentation with hip fracture. Decision was made to start an amiodarone gtt as patient does not tolerate heart rates over 100bpm due to loss of atrial kick. -Does not appear hypervolemic on exam. -Heparin gtt for anticoagulation with close monitoring of H/H. HgB was 7.9 this am, this may be dilutional as patient has received 3L of fluid intraop and so will recheck HgB at noon today. Currently on Heparin gtt due to A-fib, may need to be placed on hold pending labs. No eranna bleeding noted. If below 7.0 they will plan to transfuse -patient is mentating well and visiting with family. She was advised by Critical care medicine that if we are not able to stabilize her blood pressures, they may have to consider intubation. -Critical care medicine has discussed case with patient/family and has recommended that patient be transferred to a tertiary center for continued management as well as CT surgery evaluation given her Severe MS, Cardiology is in agreement with this recommendation. 11/10/2023: -Patient's condition remains quite fragile, remains in critical care status. Blood pressures have improved, but continues to require pressor support. Critical care medicine continues with Vasopressin and Norepi gtts to maintain a MAP goal above 65. -Review of telemetry continues to show atrial fibrillation, rates 80's, a-fib likely secondary to her severe mitral stenosis complicated by her acute presentation with hip fracture. Decision was made to start an amiodarone gtt as patient does not tolerate heart rates over 100bpm due to loss of atrial kick. Discussed heart rates with critical care medicine today and offered recommendation to utilize IV Digoxin for rate control. -Heparin gtt remains on hold due to bleeding issues and drop in HgB requiring multiple transfusions. Continue to monitor H/H closely and transfuse as appropriate. watch volume status closely in the setting of severe valvular disease, A-fib and volume load from transfusion. -Patient verbalizes understanding that she is at risk for a thromboembolic event s/t A-fib and not able to receive Heparin or other AC therapies at this time due to bleeding. -She continues to mentate well. reports that she has very mild surgical site pain. -At this time, we will continue monitor closely, agree and appreciate recommendations as set fourth by Critical care medicine. Case has been discussed with Dr. Kumar. Further recommendations regarding plan of care as per his assessment. I spent a total of 40 minutes on the date of service in preparation, delivery, documentation of the care provided to the patient excluding any time spent in the performance of separately billed services. STEPHANY Best [facility] Cardiology [facility] Admission and Anticipated Discharge Date Admission Date: November 06, 2024 Supervising Physician Co-Signing Physician Notes I have reviewed the advanced practitioner's documentation on the date of service referenced in note, and I agree with, and take responsibility for the plan of care. 74 yr old resident of [place] visiting family(Daughter and Son- surgeons at [facility] and [facility]) had a fall resulting in left hip fracture at baseline activity limited due to hip pain , per patient last seen cardiology one year ago had moderate aortic stenosis and heart failure, echo 11/07 shows severe mitral stenosis with gradient >10 at heart rate 90 , severe MAC, severe pulmonary hTN 71 mmhg, mild to moderate aortic valve stenosis newly diagnosed afib on admission s/p fall with hip fracture underwent open reduction and internal fixation on 11/07/2024 post procedure in PACU hypotensive required ICU admission started on pressors support , heparin started evening of 11/07 11/08 morning has been hypotensive and tachycardia started on amiodarone drip for rate control , received one dose of digoxin om levophed and vasopressin drop in hemoglobin 6.2 bleeding from left leg , large hematoma at surgical site on CT - heparin drip stopped. receiving 2 units of blood transfusion rate better controlled with amiodarone drip . : hb 7.3 today morning- received one more unit of blood hb improved to 8.5 pressor support being weaned - renal function slight worsening making better UOP today 1. Shock secondary to acute blood loss and severe mitral stenosis off vasopressin, currently Levophed being weaned off monitor Hb keep hb > 8 2. Atrial fibrillation with RVR rate controlled with amiodaorne with low blod pressure limited with use of AVN goal to be keep heart rate less than 80 - consider digoxin one more dose anticoagulation to be held till surgical site hematoma and hemoglobin are stable when BP improves start on metoprolol 3. Severe mitral stenosis with severe pulmonary Hypertension - yesterday in shock transfer to Tertiary care center attempted where cardiac intervention support is available if needed.however with acute blood loss was on hold. currently hemodynamically improving keep heart rate lower preferably 60- 80 to allow diastolic filling if renal function stable can consider second dose of digoxin will need to monitor for volume overload currently no volume overload I spent a total of [25] minutes coordinating, documenting, and providing care for this patient excluding time spent in the performance of separately billed services or time spent by another provider. Subjective 11/09/2024: Patient seen and examined in follow up today. Feeling fair. She offers no acute cardiac complaints. Blood pressures are stable on pressors. Denies any chest pain, pressure, palpitations, no shortness of breath, PND, pre- syncope or syncope. Labs, vitals, diagnostics, telemetry and documentation reviewed. Telemetry reviewed showing A-fib rates 80's. No acute events overnight. Remains on Amiodarone gtt, Norepi gtt, Vasopressin gtt Heparin on hold s/t drop in HgB, hematoma at surgical site. Patient is in need of transfer to tertiary center. Was not accepted to [facility] not accepting transfer at this time, HgB needs to stabilize. HgB 7.3. Patient has received a total of 2 units Leukocyte reduced RBC's and currently receiving a 3rd unit Review of Systems Review of Systems: All systems reviewed & are unremarkable except as noted in HPI & below Physical Exam Constitutional: well developed and + ill appearing; no acute distress Neck: normal visual inspection and trachea midline Respiratory: normal respiratory effort; no respiratory distress, no labored breathing and no cough Auscultation: lungs clear to auscultation bilaterally and + diminished lung sounds (bilateral bases ); no crackles, no rales, no rhonchi and no wheezes Cardiovascular: Rate/Rhythm: + irregularly irregular Heart Sounds: normal S1, normal S2 and + murmur (+3/6) Vessels: dorsalis pedis pulses present; no JVD Extremities: no edema Skin: no rashes, warm and dry Hip dressing in place, was changed by ortho this AM Psychiatric: A+Ox3, euthymic affect Results & Data Vital Signs (Past 12 Hours) Vital Signs Temp Pulse Resp BP Pulse Ox Pulse Ox O2 Del Method 11/09/24 06:38 36.6 C 102 H 18 122/51 L 98 11/09/24 06:08 36.6 C 75 18 134/59 L 11/09/24 06:06 74 21 100 11/09/24 05:53 36.6 C 73 18 160/64 H 100 11/09/24 05:46 114/58 L 11/09/24 05:46 114/58 L 11/09/24 05:46 114/58 L 11/09/24 05:42 81 21 100 11/09/24 05:36 84 21 11/09/24 05:35 36.6 C 85 18 112/49 L 11/09/24 05:31 111/67 11/09/24 05:27 86 23 11/09/24 05:16 111/59 L 11/09/24 05:06 92 H 21 100 11/09/24 04:45 86 21 11/09/24 04:41 36.5 C 11/09/24 04:30 117/71 11/09/24 04:30 117/71 11/09/24 04:18 89 19 100 11/09/24 04:15 97/66 L 11/09/24 04:15 97/66 L 11/09/24 04:15 97/66 L 11/09/24 04:12 105 H 23 11/09/24 04:06 91 H 23 11/09/24 04:00 95/63 L 05 04:00 76 128/52 L 11/09/24 03:54 96 H 21 100 05 03:45 108/70 05 03:45 108/70 05 03:30 118/82 05 03:30 118/82 05 03:21 87 18 100 05 03:15 98/70 L 11/09/24 03:15 98/70 L 11/09/24 03:06 90 18 100 05 03:00 107/63 11/09/24 03:00 107/63 11/09/24 03:00 107/63 11/09/24 03:00 98 H 16 100 11/09/24 02:45 103/63 11/09/24 02:45 103/63 11/09/24 02:31 107/85 05 02:31 107/85 11/09/24 02:15 90/60 L 11/09/24 02:09 90 19 100 11/09/24 02:03 87 18 100 11/09/24 02:00 125/77 05 02:00 125/77 05 02:00 125/77 11/09/24 01:54 82 18 100 11/09/24 01:45 111/84 05 01:45 111/84 11/09/24 01:39 82 18 100 05 01:30 123/65 05 01:30 123/65 05 01:30 123/65 05 01:30 90 18 100 05 01:15 98/73 L 11/09/24 01:09 76 18 100 05 01:03 77 18 100 05 01:00 111/69 05 01:00 111/69 05 01:00 111/ 05 01:00 111/ 05 01:00 111/ 05 00:54 85 18 100 05 00:46 105/68 05 00:46 105/68 05 00:39 75 18 100 05 00:39 88 05//25 00:30 82 25 H 100 11/09/24 00:00 36.5 C 11/09/24 00:00 79 23 100 11/09/24 00:00 85 121/54 L 11/08/24 23:45 88 24 100 11/08/24 23:45 103/59 L 11/08/24 23:45 103/59 L 11/08/24 23:33 89 24 100 11/08/24 23:30 84/58 L 11/08/24 23:30 84/58 L 11/08/24 23:30 84/58 L 11/08/24 23:27 96 H 23 100 11/08/24 23:15 107/59 L 11/08/24 23:12 94 H 21 100 11/08/24 23:09 87 16 11/08/24 23:09 99/67 L 11/08/24 23:09 99/67 L 11/08/24 23:09 99/67 L 11/08/24 23:09 99/67 L 11/08/24 23:06 81 22 100 11/08/24 23:00 100 11/08/24 22:54 79 17 100 11/08/24 22:45 96 H 18 100 11/08/24 22:45 105/77 11/08/24 22:42 87 18 93 11/08/24 22:30 116/85 11/08/24 22:30 116/85 11/08/24 22:30 116/85 11/08/24 22:30 116/85 11/08/24 22:21 81 24 100 11/08/24 22:18 69 24 100 11/08/24 22:16 123/95 11/08/24 22:16 123/95 11/08/24 22:16 123/95 11/08/24 22:00 122/74 11/08/24 22:00 122/74 11/08/24 22:00 122/74 11/08/24 21:57 36.6 C 11/08/24 21:55 Nasal Cannula 11/08/24 21:51 85 28 H 100 11/08/24 21:36 77 22 100 11/08/24 21:32 114/83 11/08/24 21:15 113/85 11/08/24 21:15 113/85 0525 21:06 79 22 100 11/08/24 21:01 117/80 11/08/24 21:01 117/80 11/08/24 20:57 76 23 100 11/08/24 20:51 73 22 100 11/08/24 20:45 146/75 H 11/08/24 20:45 146/75 H O2 Del Method O2 Flow Rate O2 Flow Rate 11/09/24 06:38 4 11/09/24 06:08 4 11/09/24 06:06 11/09/24 05:53 4 11/09/24 05:46 11/09/24 05:46 11/09/24 05:46 11/09/24 05:42 11/09/24 05:36 11/09/24 05:35 4 11/09/24 05:31 11/09/24 05:27 11/09/24 05:16 11/09/24 05:06 11/09/24 04:45 11/09/24 04:41 11/09/24 04:30 11/09/24 04:30 11/09/24 04:18 11/09/24 04:15 11/09/24 04:15 11/09/24 04:15 11/09/24 04:12 11/09/24 04:06 11/09/24 04:00 11/09/24 04:00 11/09/24 03:54 11/09/24 03:45 11/09/24 03:45 11/09/24 03:30 11/09/24 03:30 11/09/24 03:21 11/09/24 03:15 11/09/24 03:15 11/09/24 03:06 11/09/24 03:00 11/09/24 03:00 11/09/24 03:00 11/09/24 03:00 11/09/24 02:45 11/09/24 02:45 11/09/24 02:31 11/09/24 02:31 11/09/24 02:15 11/09/24 02:09 11/09/24 02:03 11/09/24 02:00 11/09/24 02:00 11/09/24 02:00 11/09/24 01:54 11/09/24 01:45 11/09/24 01:45 11/09/24 01:39 11/09/24 01:30 11/09/24 01:30 11/09/24 01:30 11/09/24 01:30 11/09/24 01:15 11/09/24 01:09 11/09/24 01:03 11/09/24 01:00 11/09/24 01:00 11/09/24 01:00 11/09/24 01:00 11/09/24 01:00 11/09/24 00:54 11/09/24 00:46 11/09/24 00:46 11/09/24 00:39 11/09/24 00:39 11/09/24 00:30 11/09/24 00:00 11/09/24 00:00 11/09/24 00:00 11/08/24 23:45 11/08/24 23:45 11/08/24 23:45 11/08/24 23:33 11/08/24 23:30 11/08/24 23:30 11/08/24 23:30 11/08/24 23:27 11/08/24 23:15 11/08/24 23:12 11/08/24 23:09 11/08/24 23:09 11/08/24 23:09 11/08/24 23:09 11/08/24 23:09 11/08/24 23:06 11/08/24 23:00 Nasal Cannula 4 11/08/24 22:54 11/08/24 22:45 11/08/24 22:45 11/08/24 22:42 11/08/24 22:30 11/08/24 22:30 11/08/24 22:30 11/08/24 22:30 11/08/24 22:21 11/08/24 22:18 11/08/24 22:16 11/08/24 22:16 11/08/24 22:16 11/08/24 22:00 11/08/24 22:00 11/08/24 22:00 11/08/24 21:57 11/08/24 21:55 4 11/08/24 21:51 11/08/24 21:36 11/08/24 21:32 11/08/24 21:15 11/08/24 21:15 11/08/24 21:06 11/08/24 21:01 11/08/24 21:01 11/08/24 20:57 11/08/24 20:51 11/08/24 20:45 11/08/24 20:45 Laboratory Results Cardiac Enzymes 11/08/24 Range/Units 08:37 B-Natriuretic Peptide 471 H (0-100) pg/ml Coagulation 11/08/24 Range/Units 08:37 B-Natriuretic Peptide 471 H (0-100) pg/ml CBC 11/08/24 11/08/24 11/09/24 Range/Units 10:59 20:36 04:09 WBC 12.68 H (4.8-10.8) K/ul RBC 2.50 L (4.20-5.40) M/uL Hgb 6.2 L* 8.2 L 7.3 L (12.0-16.0) g/dl Hct 17.7 L* 20.8 L* (37.0-47.0) % Plt Count 90 L (130-400) K/uL Neut # (Auto) 9.37 H (1.40-6.50) K/uL Lymph # (Auto) 1.57 (1.20-3.40) K/uL Dickinson # (Auto) 1.64 H (0.11-0.59) K/uL Eos # (Auto) 0.00 (0.00-0.50) K/uL Baso # (Auto) 0.01 (0.00-0.20) K/uL Comprehensive Metabolic Panel 11/09/24 Range/Units 04:09 Sodium 135 L (136-145) mmol/L Potassium 3.7 (3.5-5.1) mmol/L Chloride 105 (98-107) mmol/L Carbon Dioxide 22 (21-32) mmol/L BUN 26 H (6-23) mg/dl Creatinine 1.30 H (0.6-1.2) mg/dl Glucose 170 H (70-99(Fasting)) mg/dl Calcium 7.8 L (8.6-10.3) mg/dl Intake and Output 11/08/24 11/09/24 11/09/24 22:59 06:59 14:59 Intake Total 874.993 / 3220.361 381.466 / 3220.361 74.167 / 74.167 Output Total / 400 / 940 Balance 509.993 / 2280.361 -18.534 / 2280.361 74.167 / 74.167 Intake: IV 254.993 / 2600.361 381.466 / 2600.361 74.167 / 74.167 Amiodarone / D5w 360 mg In 200 200 / 200 ml @ 0.5 MG/MIN 16.667 mls/hr IV .Q12H AFSHAN Rx#:[id number] Heparin 79704 Unit/500 ml D5w 0 / 192.216 0 / 192.216 25,000 units In 500 ml @ 0 UNITS/HR IV .Q0M AFSHAN Rx#: [id number] Norepinephrine/Nss 16 mg In 250 126.365 / 322.172 47.392 / 322.172 ml @ 0.31 MCG/KG/MIN 33.035 mls/hr IV .Q7H35M AFSHAN Rx#: [id number] Potassium Chloride / Wtr 20 meq 74.167 / 74.167 In 100 ml @ 50 mls/hr IV Q2H AFSHAN Rx#:[id number] Vasopressin 20 units In Sodium 128.628 / 361.518 134.074 / 361.518 Chloride 0.9% 100 ml @ 0.04 UNIT/MIN 12.12 mls/hr IV . Q8H20M AFSHAN Rx#:[id number] Intake (Blood Product) Amt 620 / 620 0 / 620 Packed Cells, Leukoreduced 0 / 0 Unit [id number] Packed Cells, Leukoreduced 310 / 310 Unit [id number] Packed Cells, Leukoreduced 310 / 310 Unit [id number] Output: Urine Amount (Catheter) 400 / 940 Gutierrez/Indwelling 400 / 940 Other: Weight 114.1 kg Weight Measurement Method Built in [facility]
[2024-11-09] MEDS: MAGNESIUM SULFATE / D5W 1 GM/100 ML BAG IV ONE (09:00)
--- NOTE | 2024-11-09 09:27 | Electrocardiogram Report ---
Test Reason : Blood Pressure : */* mmHG Vent. Rate : 101 BPM Atrial Rate : * BPM P-R Int : * ms QRS Dur : 116 ms QT Int : 312 ms P-R-T Axes : * -15 79 degrees QTcB Int : 404 ms Atrial fibrillation with rapid ventricular response Incomplete right bundle branch block Minimal voltage criteria for LVH, may be normal variant ( Benito product ) Septal infarct (cited on or before 06-Nov-2024) Abnormal ECG When compared with ECG of 07-Nov-2024 09:18, (unconfirmed) Questionable change in initial forces of Anterior leads QT has shortened Confirmed by Katalina Tilley ([id number]) on 11/09/2024 9:27:32 AM Referred By: REFERRED SELF Confirmed By: Katalina Tilley
--- NOTE | 2024-11-09 09:39 | Electrocardiogram Report ---
Test Reason : Blood Pressure : */* mmHG Vent. Rate : 69 BPM Atrial Rate : * BPM P-R Int : * ms QRS Dur : 118 ms QT Int : 424 ms P-R-T Axes : * -13 69 degrees QTcB Int : 454 ms Atrial fibrillation Low voltage QRS Incomplete right bundle branch block Septal infarct (cited on or before 06-Nov-2024) Abnormal ECG When compared with ECG of 08-Nov-2024 04:35, (unconfirmed) No significant change was found Confirmed by Katalina Tilley ([id number]) on 11/09/2024 9:39:05 AM Referred By: REFERRED SELF Confirmed By: Katalina Tilley
[2024-11-09 12:19] LABS: Hematocrit (blood only) 23.7 % (37.0-47.0); Hemoglobin 8.5 g/dl (12.0-16.0); Mean Corpuscular Hgb Conc 35.9 g/dL (32.0-36.0); Mean Corpuscular Volume 83.7 fL (80.0-100.0); Mean Platelet Volume 11.1 fL (9.4-12.4); Platelet Count 96 K/uL (130-400); RDW Coefficient of Variation 15.8 % (11.5-14.5); RDW Standard Deviation 47.4 fL (36.4-46.3); Red Blood Count 2.83 M/uL (4.20-5.40); White Blood Count 13.92 K/ul (4.8-10.8)
--- NOTE | 2024-11-09 13:32 | Hospitalist Progress Note ---
Date of Service November 09, 2024 Assessment & Plan (1) Closed left hip fracture: (2) Chronic heart failure with preserved ejection fraction: (3) Atrial fibrillation with controlled ventricular response: (4) Severe pulmonary hypertension: (5) Severe mitral valve stenosis: (6) Moderate mitral regurgitation: Plan 74-year-old female from [place] visiting [place] and the son is surgeon in our hospital with past medical history significant for hypertension, CHF is status post fall and left hip fracture. Patient says she has chronic pain in the left hip. Lately walking with a cane and has difficulty ambulating.. Patient says she can walk about a block slowly but family does not think so. She was trying to sit in a chair today when she slipped and fell down in the sitting position and hurt her left hip. Did not hit her head. No loss of consciousness. Having lot of pain in the left hip region. Denies any headache. No dizziness. She has cataract in left eye and vision is not that great in that eye. No headache. No runny nose or sore throat. No recent fevers. Denies chest pain. No shortness of breath. No nausea. No abdominal pain. Normal bowel and bladder movements. Currently hemodynamics okay. Hypotensive Shock Has significant valvular heart disease with atrial fibrillation and increased ventricular rate Following open reduction and internal fixation of left hip yesterday she was transferred to ICU for continued care She went into A-fib with RVR with decreasing blood pressure and now requiring 2 pressor agents to maintain blood pressure She was started with intravenous amiodarone to control the heart rate Discussed with the quarantine officer and the patient needs to be transferred to tertiary care center for possible valvular heart surgery to control the blood pressure on the heart rate [facility] car salesperson Dr. Davison is aware Discussed with the patient and she is agreeable The quarantine officer did talk to [facility] and the patient is excepted to ICU/CCU and awaiting stabilization of the Hb prior to discharge Blood pressure remains stable at 102/66 and that is maintained on very small doses of norepinephrine and vasopressin She has been feeling little better Transfer seems to be on hold Closed left hip fracture Status post mechanical fall without any history of loss of consciousness without any warning Appreciate Ortho input and recommendation Appreciate cardiology input and recommendationshe is considered high perioperative cardiovascular risk due to cardiac conditions as stated below. she was cleared for proposed urgent surgery by the car salesperson with optimization of expected acceptable risk. Remains hemodynamically stable this morning without any cardiac and respiratory symptoms Recommended not to have any spinal anesthesia Denies any pain at rest now she is requiring pressor supports and also intravenous amiodarone to control heart rate Acute blood loss anemia complicated by dilutional effect Hemoglobin dropped to 6.2 Heparin has been discontinued and patient will get blood transfusion She will be transferred after stabilization of the hemoglobin CT scan of the abdomen and pelvis did show subcutaneous bleeding as stated She received 3 units of PRBC and the hemoglobin is maintained at 8.5 as of this morning Heparin has been on hold Atrial fibrillation with controlled ventricular rate EKG is showing atrial fibrillation Troponins are unremarkable Will monitor on telemetry Appreciate cardiology input and recommendation Continue carvedilol Started on intravenous amiodarone and also intravenous heparin for atrial fibrillation following surgery Remains tachycardic at 106- amiodarone has just started from this morning She was started with intravenous heparin and that will be on hold Significant valvular heart disease Has moderate aortic stenosis, severe mitral valve stenosis and moderate mitral regurgitation Severe pulmonary hypertension as well Echo of the heart showed- A-fib with controlled ventricular response, moderate concentric LVH, LVEF 60 to 65%, left atrium is severely dilated, aortic valve sclerosis with moderate stenosis, severe mitral annular calcification with severe mitral stenosis and moderate mitral regurgitation there is mild tricuspid regurgitation as well the estimated systolic pulmonary pressure is 71 mmHg. Dilated inferior vena cava with collapsibility with sniff indicates an elevated right atrial pressure of 50 mmHg She will likely need valvular heart surgery/intervention to control the blood pressure Blood pressure remains stable and the heart rate is below 100 Transfer to a tertiary facility has been on hold Chronic heart failure with preserved EF History of CHF No evidence of acute CHF during this admission Does not require any Lasix at this time History of hypertension Continue Coreg and lisinopril hydrochlorothiazide Will monitor DVT prophylaxis SCDs on right leg Further anticoagulation as per Ortho Disposition Telemetry Full code. Admission and Anticipated Discharge Date Admission Date: November 06, 2024 Subjective 11/07/2024 The patient was seen and examined in the telemetry unit She was admitted with a mechanical fall and fracture of the left hip Noted to have atrial fibrillation on admission Denies any chest pain and/or palpitation Complains pain in the left hip with any movement of the left lower extremity 11/08/2024 The patient was seen and examined in ICU She remains extremely weak and lethargic She has been on 2 pressor support now and has been started on intravenous amiod arone to control the heart rate Denies any chest pain and/or palpitation and does not have any shortness of breath at rest No abdominal pain nausea and/or vomiting 11/09/2024 The patient was seen and examined in ICU She has been feeling a little better following blood transfusion Feels tired otherwise denies any significant pain or other symptoms Review of Systems Review of Systems: Looks pale and very anxious. Profoundly weak and lethargic with cold extremities Physical Exam Physical Exam: Lying in bed with minimal shortness of breath at rest and distress generally Constitutional: well developed, well nourished, + ill appearing and + obese Eyes: PERRL, conjunctivae normal, anicteric sclerae ENMT: external ear and nose normal, oropharynx normal Neck: trachea midline, no thyromegaly Respiratory: no respiratory distress Auscultation: lungs clear to auscultation bilaterally and + diminished lung sounds ( at the bases) Cardiovascular: Rate/Rhythm: + irregularly irregular; not tachycardic Heart Sounds: normal S1, normal S2 and + murmur Extremities: + edema (Trace edema bilaterally) Gastrointestinal (Abdomen): Inspection/Auscultation: normal bowel sounds; abdomen not distended Percussion/Palpation: abdomen soft; abdomen nontender Neurologic: normal touch/pain/proprioception and moves all extremities (Less movement with the left lower extremity due to fracture) Psychiatric: A+Ox3, euthymic affect Lymphatic: no cervical or axillary lymphadenopathy Results & Data Results & Data Vital Signs (Past 12 Hours) Vital Signs Temp Pulse Resp BP Pulse Ox O2 Del Method O2 Flow Rate 11/09/24 11:06 99 H 21 98 11/09/24 11:00 102/66 11/09/24 10:46 120/59 L 11/09/24 10:36 90 25 H 98 11/09/24 10:31 111/68 11/09/24 10:21 91 H 21 99 11/09/24 10:20 89 11/09/24 10:01 90/67 L 11/09/24 10:00 107 H 19 93 11/09/24 09:45 101/80 11/09/24 09:45 97 H 21 99 11/09/24 09:14 Nasal Cannula 2 11/09/24 08:58 36.5 C 98 H 24 107/49 L 95 11/09/24 08:38 36.5 C 97 H 23 114/49 L 96 11/09/24 08:00 120/50 L 11/09/24 07:38 36.4 C 101 H 21 117/56 L 95 11/09/24 06:38 36.6 C 102 H 18 122/51 L 98 4 11/09/24 06:08 36.6 C 75 18 134/59 L 100 4 11/09/24 06:06 74 21 100 11/09/24 05:53 36.6 C 73 18 160/64 H 100 4 11/09/24 05:46 114/58 L 11/09/24 05:46 114/58 L 11/09/24 05:46 114/58 L 11/09/24 05:42 81 21 100 11/09/24 05:36 84 21 100 11/09/24 05:35 36.6 C 85 18 112/49 L 100 4 11/09/24 05:31 111/67 11/09/24 05:27 86 23 100 11/09/24 05:16 111/59 L 11/09/24 05:06 92 H 21 100 11/09/24 04:45 86 21 100 11/09/24 04:41 36.5 C 11/09/24 04:30 117/71 11/09/24 04:30 117/71 11/09/24 04:18 89 19 100 11/09/24 04:15 97/66 L 11/09/24 04:15 97/66 L 11/09/24 04:15 97/66 L 11/09/24 04:12 105 H 23 100 11/09/24 04:06 91 H 23 100 11/09/24 04:00 95/63 L 11/09/24 04:00 76 128/52 L 11/09/24 03:54 96 H 21 100 11/09/24 03:45 108/70 11/09/24 03:45 108/70 11/09/24 03:30 118/82 11/09/24 03:30 118/82 11/09/24 03:21 87 18 100 11/09/24 03:15 98/70 L 11/09/24 03:15 98/70 L 11/09/24 03:06 90 18 100 11/09/24 03:00 107/63 11/09/24 03:00 107/11/09/24 03:00 107/63 11/09/24 03:00 98 H 16 100 11/09/24 02:45 103/11/09/24 02:45 10311/09/24 02:31 107/85 11/09/24 02:31 107/85 11/09/24 02:15 90/60 L 11/09/24 02:09 90 19 100 11/09/24 02:03 87 18 100 11/09/24 02:00 12511/09/24 02:00 12511/09/24 02:00 12511/09/24 01:54 82 18 100 11/09/24 01:45 111/84 11/09/24 01:45 11111/09/24 01:39 82 18 100 11/09/24 01:30 12365 11/09/24 01:30 12311/09/24 01:30 12311/09/24 01:30 90 18 100 Laboratory Results Short CBC 11/08/24 11/09/24 11/09/24 Range/Units 20:36 04:09 11:52 WBC 12.68 H 13.92 H (4.8-10.8) K/ul Hgb 8.2 L 7.3 L 8.5 L (12.0-16.0) g/dl Hct 20.8 L* 23.7 L (37.0-47.0) % Plt Count 90 L 96 L (130-400) K/uL BMP 11/09/24 04:09 Sodium 135 L Potassium 3.7 Chloride 105 Carbon Dioxide 22 BUN 26 H Creatinine 1.30 H Glucose 170 H Calcium 7.8 L Medications Administered Current Inpatient Medications Hydromorphone HCl (Hydromorphone Inj 0.5 Mg/0.5 Ml Syr) 0.25 mg IV Q4H PRN PRN Reason: Moderate Pain (Scale 4, 5, 6) Stop: 11/20/24 23:15 Hydromorphone HCl (Hydromorphone Inj 0.5 Mg/0.5 Ml Syr) 0.5 mg IV Q4H PRN PRN Reason: Severe Pain (Scale 7, 8, 9,10) Stop: 11/20/24 23:15 Last Admin: 11/07/24 17:57 Dose: 0.5 mg Vasopressin 20 units/ Sodium (Chloride) 101 mls @ 12.12 mls/hr IV .Q8H20M [facility] Stop: 12/07/24 17:14 Last Infusion: 11/09/24 10:37 Dose: Infused Pantoprazole Sodium (Protonix) 40 mg in 10 mls @ 5 mls/min IV DAILY [facility] Stop: 12/08/24 08:59 Last Admin: 11/09/24 09:00 Dose: 5 mls/min Heparin Sodium/Dextrose (Heparin 59800 Unit/500 Ml D5w) 25,000 units in 500 mls @ 0 mls/hr IV .Q0M [facility]; Protocol Stop: 12/07/24 18:44 Last Titration: 11/09/24 06:49 Dose: 0 units/hr, 0 mls/hr Acetaminophen (Ofirmev) 1,000 mg in 100 mls @ 400 mls/hr IV Q8H PRN PRN Reason: Mild Pain (Scale 1, 2, 3) Stop: 11/10/24 18:40 Last Infusion: 11/07/24 23:24 Dose: Infused Hydrocortisone Sodium (Succinate 50 mg/ Syringe) 1 mls @ 4 mls/min IV Q6H [facility] Stop: 12/08/24 00:59 Last Admin: 11/09/24 13:03 Dose: 4 mls/min Amiodarone HCl/Dextrose (Nexterone / D5w) 360 mg in 200 mls @ 16.667 mls/hr IV .Q12H [facility] Stop: 12/08/24 14:14 Last Admin: 11/09/24 02:23 Dose: 0.5 mg/min, 16.7 mls/hr Norepinephrine Bitartrate (Levophed/Nss) 16 mg in 250 mls @ 33.035 mls/hr IV .Q7H35M [facility]; Protocol Stop: 12/08/24 09:29 Last Titration: 11/09/24 10:38 Dose: 0.07 mcg/kg/min, 7.5 mls/hr Metoclopramide HCl (Metoclopramide Hcl Inj 5 Mg/Ml 2 Ml Vial) 10 mg IV Q6H PRN PRN Reason: Nausea And Vomiting Stop: 12/08/24 16:44 Nitroglycerin (Nitroglycerin Sl 0.4 Mg/Tab Tab) 0.4 mg SL Q5M PRN PRN Reason: Chest Pain Stop: 12/06/24 23:15 Ondansetron HCl (Ondansetron Inj 2 Mg/Ml 2 Ml Vial) 4 mg IV Q6H PRN PRN Reason: Nausea And Vomiting Stop: 12/06/24 23:20 Last Admin: 11/08/24 19:20 Dose: 4 mg Polyethylene Glycol (Polyethylene (Miralax) 17 Gm Pack) 17 gm PO DAILY PRN PRN Reason: Constipation Stop: 12/06/24 23:15
[2024-11-09 18:41] LABS: Hematocrit (blood only) 22.5 % (37.0-47.0); Hemoglobin 8.1 g/dl (12.0-16.0); Mean Corpuscular Hemoglobin 29.9 pg (25.0-34.0); Mean Platelet Volume 10.6 fL (9.4-12.4); Nucleated RBC # (auto) 0.04 K/uL (0.00-0.12); Nucleated RBC % (auto) 0.3 %; Platelet Count 102 K/uL (130-400); RDW Coefficient of Variation 15.6 % (11.5-14.5); RDW Standard Deviation 46.7 fL (36.4-46.3); Red Blood Count 2.71 M/uL (4.20-5.40); White Blood Count 15.38 K/ul (4.8-10.8)
[2024-11-10 05:09] LABS: Basophils # (auto) 0.02 K/uL (0.00-0.20); Basophils % (auto) 0.2 %; Hematocrit (blood only) 22.6 % (37.0-47.0); Hemoglobin 7.9 g/dl (12.0-16.0); Immature Granulocytes # (auto) 0.21 K/uL (0.01-0.20); Immature Granulocytes % (auto) 1.6 %; Lymphocytes # (auto) 1.13 K/uL (1.20-3.40); Lymphocytes % (auto) 8.7 %; Mean Corpuscular Hemoglobin 29.5 pg (25.0-34.0); Mean Corpuscular Volume 84.3 fL (80.0-100.0); Mean Platelet Volume 10.5 fL (9.4-12.4); Monocytes # (auto) 1.08 K/uL (0.11-0.59); Monocytes % (auto) 8.3 %; Neutrophils # (auto) 10.57 K/uL (1.40-6.50); Neutrophils % (auto) 81.2 %; Nucleated RBC # (auto) 0.08 K/uL (0.00-0.12); Nucleated RBC % (auto) 0.6 %; Platelet Count 108 K/uL (130-400); RDW Coefficient of Variation 15.9 % (11.5-14.5); RDW Standard Deviation 48.5 fL (36.4-46.3); Red Blood Count 2.68 M/uL (4.20-5.40); White Blood Count 13.01 K/ul (4.8-10.8)
[2024-11-10 05:27] LABS: BUN Creatinine Ratio 26.3 (10-20); Calcium 7.9 mg/dl (8.6-10.3); Creatinine Clr Calc Pharmacy 66.6 ml/min; Magnesium 2.1 mg/dl (1.7-2.4); Potassium 3.9 mmol/L (3.5-5.1)
[2024-11-10 05:29] LABS: Anisocytosis Present; Polychromasia 2+
--- NOTE | 2024-11-10 07:48 | Orthopedic Progress Note ---
Date of Service November 10, 2024 Assessment & Plan (1) Closed left hip fracture: Plan: IMPRESSION: POD #3 s/p ORIF Left hip fracture, acute anemia blood loss, new on- set A-fib, remains in ICU PLAN: BP & HR improved Acute anemia blood loss, transfused 11/08-, Hgb 7.9 When able OOB to chair, WBAT with walker, will likely need assistance PT/OT DVT prophylaxis: Heparin currently on hold due to drop in Hgb, mechanical compression Continue care per Kitchen Operator and Hospitalist service. Dressing changed 11/09/24, keep covered in hospital, change as needed Admission and Anticipated Discharge Date Admission Date: November 06, 2024 Subjective feeling "Human" Physical Exam Physical Exam: LLE: Able to wiggle toes & ankle. 2+ DP pulse. Calf soft but tender. Negative Celi. Dressings clean, dry, & intact. Results & Data Vital Signs (Past 12 Hours) Vital Signs Temp Pulse Resp BP Pulse Ox Pulse Ox O2 Del Method 11/10/24 07:28 85 11/10/24 06:36 78 25 H 100 11/10/24 06:30 115/79 11/10/24 06:30 115/79 11/10/24 06:30 115/79 11/10/24 06:21 79 18 100 11/10/24 06:15 72 18 100 11/10/24 06:15 108/67 11/10/24 05:36 68 24 100 11/10/24 05:15 120/70 11/10/24 05:12 80 19 100 11/10/24 05:00 130/88 11/10/24 05:00 130/88 11/10/24 05:00 76 19 100 11/10/24 04:45 123/76 11/10/24 04:45 123/76 11/10/24 04:33 71 17 93 11/10/24 04:30 109/69 11/10/24 04:30 109/69 11/10/24 04:30 109/69 11/10/24 04:15 104/59 L 11/10/24 04:15 104/59 L 11/10/24 04:15 73 16 100 11/10/24 04:06 69 18 100 11/10/24 04:00 36.9 C 11/10/24 04:00 101/57 L 11/10/24 04:00 101/57 L 11/10/24 04:00 101/57 L 11/10/24 04:00 67 124/52 L 11/10/24 03:51 77 19 100 11/10/24 03:45 105/53 L 11/10/24 03:45 76 19 100 11/10/24 03:42 72 19 100 11/10/24 03:30 107/60 11/10/24 03:27 73 17 100 11/10/24 03:24 69 19 100 11/10/24 03:15 117/73 11/10/24 02:57 73 18 100 11/10/24 02:45 127/68 11/10/24 02:30 62 23 100 11/10/24 02:30 123/83 11/10/24 02:15 64 19 100 11/10/24 02:15 137/110 H 11/10/24 02:00 117/64 11/10/24 02:00 117/64 11/10/24 01:51 72 17 100 11/10/24 01:45 127/84 11/10/24 01:45 127/84 11/10/24 01:45 127/84 11/10/24 01:45 127/84 11/10/24 01:45 127/84 11/10/24 01:45 68 18 100 11/10/24 01:30 131/78 11/10/24 01:30 131/78 11/10/24 01:27 67 22 100 11/10/24 01:16 133/78 11/10/24 01:15 74 18 100 11/10/24 01:00 96/59 L 11/10/24 01:00 96/59 L 11/10/24 01:00 83 19 100 11/10/24 00:33 72 20 100 11/10/24 00:30 105/75 11/10/24 00:30 105/75 11/10/24 00:30 105/75 11/10/24 00:15 114/65 11/10/24 00:15 114/65 11/10/24 00:15 72 20 100 11/10/24 00:05 70 11/10/24 00:00 69 112/51 L 11/10/24 00:00 121/62 11/10/24 00:00 77 19 100 11/09/24 23:45 81 18 100 11/09/24 23:45 125/76 11/09/24 23:45 125/76 11/09/24 23:45 125/76 11/09/24 23:39 74 18 100 11/09/24 23:34 37.0 C 11/09/24 23:18 80 19 100 11/09/24 23:15 114/63 11/09/24 23:15 114/63 11/09/24 23:15 114/63 11/09/24 23:15 114/63 11/09/24 23:03 76 21 90 11/09/24 23:00 83 20 89 L 11/09/24 23:00 102/65 11/09/24 23:00 102/65 11/09/24 23:00 102/65 11/09/24 23:00 96 11/09/24 22:45 116/69 11/09/24 22:30 124/60 11/09/24 22:27 89 20 91 11/09/24 22:15 117/69 11/09/24 22:15 117/69 11/09/24 22:15 90 21 93 11/09/24 22:00 114/72 11/09/24 22:00 114/72 11/09/24 22:00 114/72 11/09/24 22:00 86 19 92 11/09/24 21:45 112/67 11/09/24 21:24 91 H 21 92 11/09/24 21:15 116/60 11/09/24 21:15 116/60 11/09/24 21:09 91 H 24 92 11/09/24 21:03 89 24 91 11/09/24 21:00 102/63 11/09/24 21:00 102/63 11/09/24 20:45 98/62 L 11/09/24 20:42 98 H 20 92 11/09/24 20:30 112/65 11/09/24 20:27 99 H 22 91 11/09/24 20:20 Room Air 11/09/24 20:12 109 H 24 92 11/09/24 20:09 36.8 C 11/09/24 20:00 104/60 11/09/24 20:00 104/60 11/09/24 20:00 104/60 11/09/24 20:00 92 H 124/51 L 11/09/24 19:57 95 H 20 93 11/09/24 19:46 115/52 L O2 Del Method O2 Flow Rate 11/10/24 07:28 11/10/24 06:36 11/10/24 06:30 11/10/24 06:30 11/10/24 06:30 11/10/24 06:21 11/10/24 06:15 11/10/24 06:15 11/10/24 05:36 11/10/24 05:15 11/10/24 05:12 11/10/24 05:00 11/10/24 05:00 11/10/24 05:00 11/10/24 04:45 11/10/24 04:45 11/10/24 04:33 11/10/24 04:30 11/10/24 04:30 11/10/24 04:30 11/10/24 04:15 11/10/24 04:15 11/10/24 04:15 11/10/24 04:06 11/10/24 04:00 11/10/24 04:00 11/10/24 04:00 11/10/24 04:00 11/10/24 04:00 11/10/24 03:51 11/10/24 03:45 11/10/24 03:45 11/10/24 03:42 11/10/24 03:30 11/10/24 03:27 11/10/24 03:24 11/10/24 03:15 11/10/24 02:57 11/10/24 02:45 11/10/24 02:30 11/10/24 02:30 11/10/24 02:15 11/10/24 02:15 11/10/24 02:00 11/10/24 02:00 11/10/24 01:51 11/10/24 01:45 11/10/24 01:45 11/10/24 01:45 11/10/24 01:45 11/10/24 01:45 11/10/24 01:45 11/10/24 01:30 11/10/24 01:30 11/10/24 01:27 11/10/24 01:16 11/10/24 01:15 11/10/24 01:00 11/10/24 01:00 11/10/24 01:00 11/10/24 00:33 11/10/24 00:30 11/10/24 00:30 11/10/24 00:30 11/10/24 00:15 11/10/24 00:15 11/10/24 00:15 11/10/24 00:05 11/10/24 00:00 11/10/24 00:00 11/10/24 00:00 11/09/24 23:45 11/09/24 23:45 11/09/24 23:45 11/09/24 23:45 11/09/24 23:39 11/09/24 23:34 11/09/24 23:18 11/09/24 23:15 11/09/24 23:15 11/09/24 23:15 11/09/24 23:15 11/09/24 23:03 11/09/24 23:00 11/09/24 23:00 11/09/24 23:00 11/09/24 23:00 11/09/24 23:00 Nasal Cannula 2 11/09/24 22:45 11/09/24 22:30 11/09/24 22:27 11/09/24 22:15 11/09/24 22:15 11/09/24 22:15 11/09/24 22:00 11/09/24 22:00 11/09/24 22:00 11/09/24 22:00 11/09/24 21:45 11/09/24 21:24 11/09/24 21:15 11/09/24 21:15 11/09/24 21:09 11/09/24 21:03 11/09/24 21:00 11/09/24 21:00 11/09/24 20:45 11/09/24 20:42 11/09/24 20:30 11/09/24 20:27 11/09/24 20:20 11/09/24 20:12 11/09/24 20:09 11/09/24 20:00 11/09/24 20:00 11/09/24 20:00 11/09/24 20:00 11/09/24 19:57 11/09/24 19:46 Laboratory Results Laboratory Results WBC 13.01 K/ul (4.8-10.8) H 11/10/24 04:20 RBC 2.68 M/uL (4.20-5.40) L 11/10/24 04:20 Hgb 7.9 g/dl (12.0-16.0) L 11/10/24 04:20 POC Hgb 7.1 g/dl (12.0-16.0) L 11/08/24 04:19 Hct 22.6 % (37.0-47.0) L 11/10/24 04:20 POC Hct 21 % (37-47) L 11/08/24 04:19 MCV 84.3 fL (80.0-100.0) 11/10/24 04:20 MCH 29.5 pg (25.0-34.0) 11/10/24 04:20 MCHC 35.0 g/dL (32.0-36.0) 11/10/24 04:20 RDW Std Deviation 48.5 fL (36.4-46.3) H 11/10/24 04:20 RDW Coeff of Gifty 15.9 % (11.5-14.5) H 11/10/24 04:20 Plt Count 108 K/uL (130-400) L 11/10/24 04:20 MPV 10.5 fL (9.4-12.4) 11/10/24 04:20 Immature Gran % (Auto) 1.6 % 11/10/24 04:20 Neut % (Auto) 81.2 % 11/10/24 04:20 Lymph % (Auto) 8.7 % 11/10/24 04:20 Mccormick % (Auto) 8.3 % 11/10/24 04:20 Eos % (Auto) 0.0 % 11/10/24 04:20 Baso % (Auto) 0.2 % 11/10/24 04:20 Neut # (Auto) 10.57 K/uL (1.40-6.50) H 11/10/24 04:20 Lymph # (Auto) 1.13 K/uL (1.20-3.40) L 11/10/24 04:20 Mccormick # (Auto) 1.08 K/uL (0.11-0.59) H 11/10/24 04:20 Eos # (Auto) 0.00 K/uL (0.00-0.50) 11/10/24 04:20 Baso # (Auto) 0.02 K/uL (0.00-0.20) 11/10/24 04:20 Immature Gran # (Auto) 0.21 K/uL (0.01-0.20) H 11/10/24 04:20 Absolute Nucleated RBC 0.08 K/uL (0.00-0.12) 11/10/24 04:20 Nucleated RBC % (auto) 0.6 % 11/10/24 04:20 Platelet Estimate Decreased (Normal) L 11/09/24 04:09 RBC Morphology Unremarkable 11/08/24 04:27 Polychromasia 2+ 11/10/24 04:20 Anisocytosis Present 11/10/24 04:20 PT 13.5 Seconds (9.0-12.0) H 11/07/24 18:42 INR 1.3 (0.9-1.1) H 11/07/24 18:42 APTT 28 Seconds (21-31) 11/07/24 18:42 PTT Ratio 1.0 11/07/24 18:42 Heparin Anti-Xa, Unfract 0.47 IU/ml (0.3-0.7) 11/08/24 04:27 Specimen Type Arterial 11/08/24 04:19 Sample Site Art Line 11/08/24 04:19 POC pH 7.36 (7.35-7.45) 11/08/24 04:19 POC pCO2 38 mmHg (35-46) 11/08/24 04:19 POC pO2 21 mmHg (80-95) L 11/08/24 04:19 POC HCO3 22 john/L (19-24) 11/08/24 04:19 POC Total CO2 23 mmol/L (24-31) L 11/08/24 04:19 POC Base Excess -4.0 john/L (-9-1.8) 11/08/24 04:19 O2 Sat Pulse Oximetry 100 11/08/24 04:19 ABG pH (Temp Correct) 7.364 (7.35-7.45) 11/08/24 04:19 ABG pCO2 (Temp Corrct 38 mmHg (35-46) 11/08/24 04:19 POC ABG pO2 at Pt Temp 20 11/08/24 04:19 POC ABG O2 Sat 33.0 % (90-95) L 11/08/24 04:19 Moe Test NA 11/08/24 04:19 O2 Delivery Device Cannula 11/08/24 04:19 POC Sodium 138 mmol/L (135-144) 11/08/24 04:19 Sodium 137 mmol/L (136-145) 11/10/24 04:20 POC Potassium 3.7 mmol/L (3.3-5.0) 11/08/24 04:19 Potassium 3.9 mmol/L (3.5-5.1) 11/10/24 04:20 Chloride 106 mmol/L (98-107) 11/10/24 04:20 Carbon Dioxide 25 mmol/L (21-32) 11/10/24 04:20 Anion Gap 6 (3-11) 11/10/24 04:20 BUN 25 mg/dl (6-23) H 11/10/24 04:20 Creatinine 0.95 mg/dl (0.6-1.2) D 11/10/24 04:20 Est Cr Clr Drug Dosing 66.6 ml/min 11/10/24 04:20 eGFR 62.87 11/10/24 04:20 BUN/Creatinine Ratio 26.3 (10-20) H 11/10/24 04:20 Glucose 154 mg/dl (70-99(Fasting)) H 11/10/24 04:20 Estimat Average Glucose 100 mg/dl 11/07/24 05:44 Hemoglobin A1c 5.1 % (4.5-5.6) 11/07/24 05:44 Lactate 1.4 mmol/L (0.4-2.0) 11/08/24 04:27 Calcium 7.9 mg/dl (8.6-10.3) L 11/10/24 04:20 Phosphorus 3.9 mg/dl (2.5-4.9) 11/09/24 04:09 Magnesium 2.1 mg/dl (1.7-2.4) 11/10/24 04:20 Total Bilirubin 1.9 mg/dl (0.2-1.0) H D 11/07/24 17:02 AST 23 U/L (13-39) 11/07/24 17:02 ALT 11 U/L (7-52) 11/07/24 17:02 Alkaline Phosphatase 39 U/L (34-104) 11/07/24 17:02 Total Creatine Kinase 27 U/L (26-192) 11/07/24 05:44 Troponin I High Sens 7.8 pg/ml (0-14) 11/07/24 05:44 B-Natriuretic Peptide 471 pg/ml (0-100) H 11/08/24 08:37 Total Protein 6.0 gm/dl (6.0-8.3) D 11/07/24 17:02 Albumin 3.1 gm/dl (3.4-5.0) L 11/07/24 17:02 Globulin 2.9 gm/dl (2.5-4.0) 11/07/24 17:02 Albumin/Globulin Ratio 1.1 (0.9-2) 11/07/24 17:02 Random Cortisol 23.54 mcg/dl 11/07/24 17:02 Nasal Screen MRSA (PCR) Negative (Negative) 11/07/24 Unknown Hepatitis C Ab Screen Negative (Negative) 11/06/24 19:57 Blood Type A Positive 11/08/24 11:33 Blood Type Recheck A Positive 11/08/24 10:59 Antibody Screen NEGATIVE 11/08/24 11:33 Crossmatch See Detail 11/08/24 11:33 Impressions Hip/Pelvis X-Ray 11/06/24 20:00 Exam(s): XR HIP + PELVIS, 1 view EXAM: XR Left Hip With Pelvis When Performed, 2 or 3 Views CLINICAL HISTORY: Reason for exam: Hip fracture. TECHNIQUE: Two or three views of the left hip with pelvis when performed. COMPARISON: No relevant prior studies available. IMPRESSION: Limited views. There is an acute intertrochanteric fracture of the proximal left femur with mild displacement. Advanced degenerative arthropathy is noted at the left hip joint. 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 Fluoroscopy time: 4 minutes and 41 seconds. Number of fluoroscopic images: 6. Ka,r: 87.18 mGy. FINDINGS: Fluoroscopy was provided during open reduction and internal fixation of the intertrochanteric fracture of the left femur with trochanteric nail. Fracture alignment has improved. Distal screws are present. Linear radiodensities project over the operative bed are likely on the patient. Severe left hip osteoarthritis incidentally noted. IMPRESSION: Fluoroscopy provided during open reduction and internal fixation of the intertrochanteric fracture of the left femur. ACT 112: Negative or not required by law. Electronically signed by: Wilfredo Corbett M.D. 11/08/2024 12:08 PM Chest X-Ray 11/08/24 07:40 Technique: A frontal view of the chest was obtained Comparison is made to the prior examination dated 11/07/2024 Findings: There is suspected mild pulmonary edema. The heart is enlarged. No pleural effusion or pneumothorax is seen. There is an unchanged right jugular central venous line with its tip in the lower SVC No fracture is noted. No foreign body is seen Impression: Cardiomegaly and mild pulmonary edema ACT 112: Positive. There are findings on this exam that require communication between the performing entity and the patient following Patient Test Result Information Act ([place] ACT 112) guidelines. Electronically signed by Vladimir Dickson 11-08-2024 08:[address] 11/08/24 11:21 EXAM: CT Pelvis With Intravenous Contrast INDICATION: Rule out bleed TECHNIQUE: Axial computed tomography images of the pelvis with intravenous contrast. Sagittal and coronal reformatted images were created and reviewed. This CT exam was performed using one or more of the following dose reduction techniques: automated exposure control, adjustment of the mA and/or kV according to patient size, and/or use of iterative reconstruction technique. CONTRAST: 94ml of Optiray 320 was administered intravenously. COMPARISON: No relevant prior studies available. FINDINGS: Bowel: No abnormality noted. No obstruction. No mucosal thickening. Appendix: No findings to suggest acute appendicitis. Intraperitoneal space: No free air. No significant fluid collection. Bladder: No filling defects to suggest mass or large stone. No inflammation. Reproductive: No significant abnormality noted. Bones/joints: There is an acute intertrochanteric fracture of the left femur with slight displacement. Long femoral nail with proximal and distal locking hardware well-seated and intact. Severe degenerative change of the left hip noted. Soft tissues: Large irregular subcutaneous hematoma extends from the level of the upper aspect of the left gluteal musculature to the lateral skin surface inferiorly tracking within and along the gluteal musculature predominantly in the subcutaneous fat terminating posterior level of the proximal femoral shaft. Moderate amounts of associated gas present. The skin surface is not completely included. There are areas of acute hemorrhage in the lateral aspect of the hematoma (see images series 6 [id number]. Most confluent area of hematoma measures maximal transverse diameter of 10 cm, AP diameter of 8.1 cm. Maximum length is roughly 17.4 cm. There is generalized subcutaneous contusion and gas. There is gas along the gluteal musculature. There is subcutaneous edema and scattered gas along the lateral aspect of the femur. Vasculature: No abnormality noted. No lower abdominal aortic aneurysm. Lymph nodes: No abnormality noted. No enlarged lymph nodes. IMPRESSION: 1. Large predominantly subcutaneous but partially gluteal hematoma with areas of active bleeding as above. There is generalized edema of the left lower extremity. 2. Internally fixed acute fracture of the intertrochanteric left femur. ACT 112: N/A Electronically signed by Ana Paula Stock 11-08-2024 13:[address] 11/08/24 11:21 EXAM: CT Pelvis With Intravenous Contrast INDICATION: Evaluate for bleeding TECHNIQUE: Axial computed tomography images of the pelvis with intravenous contrast. Sagittal and coronal reformatted images were created and reviewed. This CT exam was performed using one or more of the following dose reduction techniques: automated exposure control, adjustment of the mA and/or kV according to patient size, and/or use of iterative reconstruction technique. CONTRAST: 94ml of Optiray 320 was administered intravenously. COMPARISON: No relevant prior studies available. FINDINGS: Bones/joints: There is an acute nondisplaced fracture of the posterior aspect of the left inferior pubic ramus. There is an acute intertrochanteric fracture of the left femur with lateral displacement. Long femoral nail with proximal locking bolt well-seated and intact. Severe primary osteoarthritic change of the left hip noted. Soft tissues: There is diffuse subcutaneous contusion and hematoma beginning at the level of the upper gluteal musculature and partially involving the anterior gluteal muscular mass. Extensive subcutaneous gas noted. Areas of acute hemorrhage noted in the lateral aspect of the hematoma (series 4 images [id number] 20). Bladder: No filling defects to suggest mass or large stone. No inflammation. IMPRESSION: 1. Acute intertrochanteric fracture of the left femur with the visualized portion of the internal fixation hardware intact and well-seated. 2. Large predominantly subcutaneous hematoma from the upper left gluteal region to the proximal posterior left femur with areas of active bleeding as above. 3. There is an acute nondisplaced fracture of the posterior aspect of the left inferior pubic ramus. ACT 112: N/A Electronically signed by Montrell Ana Paula 11-08-2024 2:02 PM Abdomen/Pelvis CT 11/08/24 11:26 EXAM: CT Abdomen and Pelvis With Intravenous Contrast INDICATION: Evaluate for bleeding TECHNIQUE: Axial computed tomography images of the abdomen and pelvis with intravenous contrast. Sagittal and coronal reformatted images were created and reviewed. This CT exam was performed using one or more of the following dose reduction techniques: automated exposure control, adjustment of the mA and/or kV according to patient size, and/or use of iterative reconstruction technique. CONTRAST: 93 ml of Optiray 320 was administered intravenously. COMPARISON: No relevant prior studies available. FINDINGS: Limitations: Portions of the right subcostal chest wall and upper abdominal wall not included. Lung bases and pleural space: Heart: Cardiomegaly. Small pericardial effusion noted. Dense mitral annular calcification is noted. Mediastinum: No abnormality noted. ABDOMEN: Liver: Normal size and contour. Hypodense typical of steatosis. No mass or ductal dilation. Gallbladder and bile ducts: Cholecystectomy. No ductal dilation or stone noted. Pancreas: Homogeneous enhancement. No mass, inflammation or ductal dilation. Spleen: No significant abnormality noted. Adrenals: Mild bilateral thickening. No measurable mass. Kidneys and ureters: There is a ill-defined hypodense area in the left renal midpole measuring approximately 2.7 x 1.4 x 0.9 cm. The right kidney appears normal. Stomach and bowel: No distension or mucosal thickening. No inflammation noted. PELVIS: Appendix: No findings to suggest acute appendicitis. Bladder: Gutierrez balloon inflated in the bladder which is collapsed and cannot be assessed. Reproductive: No abnormalities noted. ABDOMEN and PELVIS: Intraperitoneal space: No free air. No significant fluid collection. Bones/joints: Acute internally fixed left intertrochanteric femoral fracture noted. Degenerative changes present throughout the spine. There is moderate to severe degenerative change of the hips left greater than right. Soft tissues: There is a large hematoma and gas collection extending from the upper aspect of the left gluteal musculature tapering to the level of the proximal femur measuring maximal transverse dimension at the most confluent point of 11.9 cm in AP diameter of 7.3 cm. There is a small focus of acute hemorrhage in the lateral aspect of the hematoma at the level of the supra-acetabular iliac bone series 3 image 257/367. There is generalized surrounding subcutaneous contusion. Vasculature: Atherosclerotic calcification of the aorta and branches. No aneurysm. Lymph nodes: No pathologically enlarged lymph nodes. IMPRESSION: 1. Large subcutaneous hematoma extending from the upper left gluteal region to the proximal posterior left femur as above with small focus of acute hemorrhage in the lateral aspect of the hematoma. 2. Small bilateral pleural effusions and dependent atelectasis. 3. Ill-defined hypodensity left kidney could be a mass or a hyperdense cyst. Sonographic assessment is recommended when able. ACT 112: N/A Electronically signed by Ana Paula Stock 11-08-2024 13:54 PM
--- NOTE | 2024-11-10 08:57 | Cardiology Progress Note ---
Date of Service November 10, 2024 Assessment & Plan (1) Severe mitral valve stenosis: (2) Moderate mitral regurgitation: (3) Aortic stenosis: (4) Atrial fibrillation with controlled ventricular response: (5) Severe pulmonary hypertension: (6) Chronic heart failure with preserved ejection fraction: (7) Shock circulatory: Plan Assessment / Plan: Medically complex 74-year-old female who resided in [place] presents with mechanical fall and acute left hip fracture. She was deemed high perioperative cardiovascular risk due to severe mitral valve stenosis (mean diastolic gradient of 10-14 with ventricular rate of 84 bpm) with severe pulmonary hypertension (PASP estimated to be 71 mm Hg). Moderate mitral regurgitation and mild to moderate aortic valve stenosis also noted. LV systolic function preserved (LVEF 60-65%) without regional wall motion abnormality. Post operatively, patient developed hypotension and Hgb trended zackery to 6.2 g/dl, having been 15.8 g/dl on presentation. Heparin was discontinued. Patient required support with vasopressin and norepiniphrine and has received transfustion of 3 units of PBRCs, with Hgb 7.9 g/dl on 11/10/24. CT left femur 11/08/24 revealed large subcutaneous and gluteal hematoma 1. Shock secondary to acute blood loss and severe mitral stenosis * off vasopressin * still on low dose of norepinephrine 0.03 mcg/kg / min * monitor Hbg, goal ~ 8 g/dl 2. Atrial fibrillation with RVR * rate controlled with amiodarone * the use of other AV emil blockers is limited due to hypotension * anticoagulation to be held until surgical site hematoma and hemoglobin are stable * when BP improves start on metoprolol 3. Severe mitral stenosis with severe pulmonary Hypertension - 11/08 transfer to [facility] discussed where cardiac intervention support (such and mitral balloon valvoplasty) would available if needed. However ongoing optimization from an anemia standpoint recommended instead of acute structural heart intervention as first line. currently hemodynamically improving keep heart rate lower preferably 60- 80 to allow diastolic filling if renal function stable can consider second dose of digoxin if necessary will need to monitor for volume overload currently no volume overload. Will patient's consent , I called and updated her son Vimal Lyman of her progress. Adolfo Ling, Cardiology Admission and Anticipated Discharge Date Admission Date: November 06, 2024 Segundo De Los Santos is seen in cardiology follow up of atrial fibrillation, complex valvular heart disease, and hypotension after ORIF of left hip fracture. She is awake and conversant and state her pain is well controlled. She denies chest pain, palpitations , or shortness of breath. Telemetry reveals rate controlled atrial fibrillation with ventricular rate in the 90s. Physical Exam Physical Exam: Temp Pulse Resp BP Pulse Ox O2 Del Method O2 Flow Rate 36.7 C 86 20 120/50 L 97 Room Air 2 11/10/24 08:10 11/10/24 08:03 11/10/24 08:03 11/10/24 08:18 11/10/24 08:18 11/10/24 08:18 11/09/24 23:00 Constitutional: well nourished and + ill appearing; no acute distress Respiratory: no respiratory distress, no labored breathing and no retractions Auscultation: no crackles, no rales, no rhonchi and no wheezes Cardiovascular: Rate/Rhythm: + irregularly irregular Heart Sounds: normal S1, normal S2 and + murmur (3/6 GORAN heard best at the right second intercostal space) Extremities: no edema (Bilateral pretibial stasis changes) Gastrointestinal (Abdomen): Inspection/Auscultation: normal bowel sounds; abdomen not distended Percussion/Palpation: abdomen nontender and no guarding Neurologic: CN's II-XI intact bilaterally and moves all extremities; no focal motor deficits Results & Data Laboratory Results CBC 11/09/24 11/09/24 11/10/24 Range/Units 11:52 18:24 04:20 WBC 13.92 H 15.38 H 13.01 H (4.8-10.8) K/ul RBC 2.83 L 2.71 L 2.68 L (4.20-5.40) M/uL Hgb 8.5 L 8.1 L 7.9 L (12.0-16.0) g/dl Hct 23.7 L 22.5 L 22.6 L (37.0-47.0) % Plt Count 96 L 102 L 108 L (130-400) K/uL Neut # (Auto) 10.57 H (1.40-6.50) K/uL Lymph # (Auto) 1.13 L (1.20-3.40) K/uL [place] # (Auto) 1.08 H (0.11-0.59) K/uL Eos # (Auto) 0.00 (0.00-0.50) K/uL Baso # (Auto) 0.02 (0.00-0.20) K/uL Comprehensive Metabolic Panel 11/10/24 Range/Units 04:20 Sodium 137 (136-145) mmol/L Potassium 3.9 (3.5-5.1) mmol/L Chloride 106 (98-107) mmol/L Carbon Dioxide 25 (21-32) mmol/L BUN 25 H (6-23) mg/dl Creatinine 0.95 D (0.6-1.2) mg/dl Glucose 154 H (70-99(Fasting)) mg/dl Calcium 7.9 L (8.6-10.3) mg/dl Intake and Output 11/09/24 11/10/24 11/10/24 22:59 06:59 14:59 Intake Total 35.042 / 1207.271 312.111 / 1207.271 Output Total 445 / 1490 550 / 1490 150 / 150 Balance -409.958 / -282.729 -237.889 / -282.729 -150 / -150 Intake: IV 35.042 / 847.271 262.111 / 847.271 Amiodarone / D5w 360 mg In 200 182.308 / 374.358 ml @ 0.5 MG/MIN 16.667 mls/hr IV .Q12H AFSHAN Rx#:[id number] Heparin 71169 Unit/500 ml D5w 0 / 0 0 / 0 25,000 units In 500 ml @ 0 UNITS/HR IV .Q0M AFSHAN Rx#: [id number] Norepinephrine/Nss 16 mg In 250 35.042 / 158.448 79.803 / 158.448 ml @ 0.31 MCG/KG/MIN 33.035 mls/hr IV .Q7H35M AFSHAN Rx#: [id number] Oral 50 / 50 Output: Urine Amount (Catheter) 445 / 1490 550 / 1490 150 / 150 Gutierrez/Indwelling 445 / 1490 550 / 1490 150 / 150 Other: Weight 115.1 kg Weight Measurement Method Built in [facility]
--- NOTE | 2024-11-10 09:01 | Critical Care Progress Note ---
Date of Service November 10, 2024 Assessment & Plan (1) Atrial fibrillation: (2) Closed fracture of left hip: (3) Chronic heart failure with preserved ejection fraction: (4) Severe pulmonary hypertension: (5) Atrial fibrillation with controlled ventricular response: (6) Severe mitral valve stenosis: (7) Shock circulatory: (8) Ex-smoker: (9) Aortic stenosis: (10) Acute blood loss anemia: Plan Reason Critically Ill: 74-year-old female with a history of severe mitral stenosis, mild aortic stenosis and moderate aortic stenosis admitted status post fall with hip fracture. Course complicated by significant hypotension requiring 2 vasopressor agents and atrial fibrillation with rapid ventricular response. 24-hour events: Patient's vasopressor requirement has decreased. She did receive transfusion yesterday. Recommendations: Neuro -no current issues. Continue pain management. Initiate PT and OT. Out of bed to chair as tolerated. Cardiac -hypotension improving. Continue to wean Robbie-Synephrine. Will place on midodrine. Add Florinef. Would like to diurese as soon as hemodynamics allow. Titrate to maintain systolic blood pressure greater than 100. Continue amiodarone. Anticoagulation currently contraindicated but may need to restart within the next 24 hours if bleeding issues remained stable and no transfusion is required. Long-term will potentially need DOAC or Coumadin. Will need long- term follow-up for her valvular heart disease. Suspect her pulmonary hypertension is secondary to her valvular heart disease although cannot rule out a component of diastolic heart failure as well. Defer digoxin to cardiology. Respiratory -weaning oxygen as tolerated. Continue incentive spirometry. No evidence of acute bronchospasm. Out of bed to chair as tolerated GI -advancing diet to clears as tolerated. RENAL/LYTES -ICU electrolyte replacement protocol. ENDO - currently on stress dose steroids for relative adrenal insufficiency. Will add Florinef. Wean once hemodynamics stabilize. Glycemic control per protocol HEME -postoperative hematoma. Patient's received 3 units packed cells. Hemoglobin stable this morning. Platelet count appears to be recovering. Continue to monitor. ID -following clinically. Off antibiotics Musculoskeletal -status post repair left hip fracture. Mobilization as tolerated by hemodynamics. --Prophylaxis VTE: IPC GI: Pantoprazole Lines: Right IJ, left radial, Gutierrez Diet: Clear liquid Total of 55 minutes was spent reviewing case, coordinating care with bedside critical care nurse and and other specialists, updating family, and and documentation. Admission and Anticipated Discharge Date Admission Date: November 06, 2024 Subjective Patient seen and examined. EMR reviewed. Discussed with off going respiratory care practitioner as well as with overnight critical care [facility] and bedside critical care nurse. Patient reports that she is feeling much better today. She is awake and alert. She tolerated some clear liquids. She is nervous about participating in PT and OT today. She has been cleared for weightbearing status by orthopedics. She denies any chest pain or palpitations. No dizziness or lightheadedness. Her vasopressor requirement continues to decrease. Review of Systems Review of Systems: All systems reviewed & are unremarkable except as noted in Subjective Physical Exam Constitutional: well developed, well nourished, + ill appearing and + obese Neck: trachea midline, no thyromegaly Respiratory: no respiratory distress Auscultation: lungs clear to auscultation bilaterally and + diminished lung sounds ( at the bases) Cardiovascular: Rate/Rhythm: + irregularly irregular; not tachycardic Heart Sounds: normal S1, normal S2 and + murmur Extremities: + edema (Trace edema bilaterally) Gastrointestinal (Abdomen): Inspection/Auscultation: normal bowel sounds; abdomen not distended Percussion/Palpation: abdomen soft; abdomen nontender Neurologic: normal touch/pain/proprioception and moves all extremities (Less movement with the left lower extremity due to fracture) Psychiatric: A+Ox3, euthymic affect Lymphatic: no cervical or axillary lymphadenopathy Results & Data Results & Data Vital Signs (Past 12 Hours) Vital Signs Temp Pulse Resp BP BP Pulse Ox Pulse Ox 11/10/24 08:18 97 11/10/24 08:18 120/50 L 11/10/24 08:10 36.7 C 11/10/24 08:03 86 20 100 11/10/24 08:00 110/78 11/10/24 07:57 83 21 100 11/10/24 07:52 115/49 L 11/10/24 07:46 117/65 11/10/24 07:45 83 23 95 11/10/24 07:28 85 11/10/24 07:15 75 19 100 11/10/24 07:15 127/64 11/10/24 07:00 122/65 11/10/24 06:57 86 19 91 11/10/24 06:45 115/74 11/10/24 06:45 115/74 11/10/24 06:45 76 13 99 11/10/24 06:36 78 25 H 100 11/10/24 06:30 115/79 11/10/24 06:30 115/79 11/10/24 06:30 115/79 11/10/24 06:21 79 18 100 11/10/24 06:15 72 18 100 11/10/24 06:15 108/67 11/10/24 05:36 68 24 100 11/10/24 05:15 120/70 11/10/24 05:12 80 19 100 11/10/24 05:00 130/88 11/10/24 05:00 130/88 11/10/24 05:00 76 19 100 11/10/24 04:45 123/76 11/10/24 04:45 123/76 11/10/24 04:33 71 17 93 11/10/24 04:30 109/69 11/10/24 04:30 109/69 11/10/24 04:30 109/69 11/10/24 04:15 104/59 L 11/10/24 04:15 104/59 L 11/10/24 04:15 73 16 100 11/10/24 04:06 69 18 100 11/10/24 04:00 36.9 C 11/10/24 04:00 101/57 L 11/10/24 04:00 101/57 L 11/10/24 04:00 101/57 L 11/10/24 04:00 67 124/52 L 11/10/24 03:51 77 19 100 11/10/24 03:45 105/53 L 11/10/24 03:45 76 19 100 11/10/24 03:42 72 19 100 11/10/24 03:30 107/60 11/10/24 03:27 73 17 100 11/10/24 03:24 69 19 100 11/10/24 03:15 117/73 11/10/24 02:57 73 18 100 11/10/24 02:45 127/68 11/10/24 02:30 62 23 100 11/10/24 02:30 123/83 11/10/24 02:15 64 19 100 11/10/24 02:15 137/110 H 11/10/24 02:00 117/64 11/10/24 02:00 117/64 11/10/24 01:51 72 17 100 11/10/24 01:45 127/84 11/10/24 01:45 127/84 11/10/24 01:45 127/84 11/10/24 01:45 127/84 11/10/24 01:45 127/84 11/10/24 01:45 68 18 100 11/10/24 01:30 131/78 11/10/24 01:30 131/78 11/10/24 01:27 67 22 100 11/10/24 01:16 133/78 11/10/24 01:15 74 18 100 11/10/24 01:00 96/59 L 11/10/24 01:00 96/59 L 11/10/24 01:00 83 19 100 11/10/24 00:33 72 20 100 11/10/24 00:30 105/75 11/10/24 00:30 105/75 11/10/24 00:30 105/75 11/10/24 00:15 114/65 11/10/24 00:15 114/65 11/10/24 00:15 72 20 100 11/10/24 00:05 70 11/10/24 00:00 69 112/51 L 11/10/24 00:00 121/62 11/10/24 00:00 77 19 100 11/09/24 23:45 81 18 100 11/09/24 23:45 125/76 11/09/24 23:45 125/76 11/09/24 23:45 125/76 11/09/24 23:39 74 18 100 11/09/24 23:34 37.0 C 11/09/24 23:18 80 19 100 11/09/24 23:15 114/63 11/09/24 23:15 114/63 11/09/24 23:15 114/63 11/09/24 23:15 114/63 11/09/24 23:03 76 21 90 11/09/24 23:00 83 20 89 L 11/09/24 23:00 102/65 11/09/24 23:00 102/65 11/09/24 23:00 102/65 11/09/24 23:00 96 11/09/24 22:45 116/69 11/09/24 22:30 124/60 05/25 22:27 89 20 91 11/09/24 22:15 117/69 11/09/24 22:15 117/69 11/09/24 22:15 90 21 93 11/09/24 22:00 114/72 11/09/24 22:00 114/72 11/09/24 22:00 114/72 11/09/24 22:00 86 19 92 11/09/24 21:45 112/67 11/09/24 21:24 91 H 21 92 11/09/24 21:15 116/60 11/09/24 21:15 116/60 11/09/24 21:09 91 H 24 92 11/09/24 21:03 89 24 91 O2 Del Method O2 Del Method O2 Flow Rate 11/10/24 08:18 Room Air 11/10/24 08:18 11/10/24 08:10 11/10/24 08:03 11/10/24 08:00 11/10/24 07:57 11/10/24 07:52 11/10/24 07:46 11/10/24 07:45 11/10/24 07:28 11/10/24 07:15 11/10/24 07:15 11/10/24 07:00 11/10/24 06:57 11/10/24 06:45 11/10/24 06:45 11/10/24 06:45 11/10/24 06:36 11/10/24 06:30 11/10/24 06:30 11/10/24 06:30 11/10/24 06:21 11/10/24 06:15 11/10/24 06:15 11/10/24 05:36 11/10/24 05:15 11/10/24 05:12 11/10/24 05:00 11/10/24 05:00 11/10/24 05:00 11/10/24 04:45 11/10/24 04:45 11/10/24 04:33 11/10/24 04:30 11/10/24 04:30 11/10/24 04:30 11/10/24 04:15 11/10/24 04:15 11/10/24 04:15 11/10/24 04:06 11/10/24 04:00 11/10/24 04:00 11/10/24 04:00 11/10/24 04:00 11/10/24 04:00 11/10/24 03:51 11/10/24 03:45 11/10/24 03:45 11/10/24 03:42 11/10/24 03:30 11/10/24 03:27 11/10/24 03:24 11/10/24 03:15 11/10/24 02:57 11/10/24 02:45 11/10/24 02:30 11/10/24 02:30 11/10/24 02:15 11/10/24 02:15 11/10/24 02:00 11/10/24 02:00 11/10/24 01:51 11/10/24 01:45 11/10/24 01:45 11/10/24 01:45 11/10/24 01:45 11/10/24 01:45 11/10/24 01:45 11/10/24 01:30 11/10/24 01:30 11/10/24 01:27 11/10/24 01:16 11/10/24 01:15 11/10/24 01:00 11/10/24 01:00 11/10/24 01:00 11/10/24 00:33 11/10/24 00:30 11/10/24 00:30 11/10/24 00:30 11/10/24 00:15 11/10/24 00:15 11/10/24 00:15 11/10/24 00:05 11/10/24 00:00 11/10/24 00:00 11/10/24 00:00 11/09/24 23:45 11/09/24 23:45 11/09/24 23:45 11/09/24 23:45 11/09/24 23:39 11/09/24 23:34 11/09/24 23:18 11/09/24 23:15 11/09/24 23:15 11/09/24 23:15 11/09/24 23:15 11/09/24 23:03 11/09/24 23:00 11/09/24 23:00 11/09/24 23:00 11/09/24 23:00 11/09/24 23:00 Nasal Cannula 2 05/25/25 22:45 11/09/24 22:30 11/09/24 22:27 11/09/24 22:15 11/09/24 22:15 11/09/24 22:15 11/09/24 22:00 11/09/24 22:00 11/09/24 22:00 11/09/24 22:00 11/09/24 21:45 11/09/24 21:24 11/09/24 21:15 11/09/24 21:15 11/09/24 21:09 11/09/24 21:03 Critical Care Results & Data Vital Signs (Past 12 Hours) Vital Signs Temp Pulse Resp BP BP Pulse Ox Pulse Ox 11/10/24 08:18 97 11/10/24 08:18 120/50 L 11/10/24 08:10 36.7 C 11/10/24 08:03 86 20 100 11/10/24 08:00 110/78 11/10/24 07:57 83 21 100 11/10/24 07:52 115/49 L 11/10/24 07:46 117/65 11/10/24 07:45 83 23 95 11/10/24 07:28 85 11/10/24 07:15 75 19 100 11/10/24 07:15 127/64 11/10/24 07:00 122/65 11/10/24 06:57 86 19 91 11/10/24 06:45 115/74 11/10/24 06:45 115/74 11/10/24 06:45 76 13 99 11/10/24 06:36 78 25 H 100 11/10/24 06:30 115/79 11/10/24 06:30 115/79 11/10/24 06:30 115/79 11/10/24 06:21 79 18 100 11/10/24 06:15 72 18 100 11/10/24 06:15 108/67 11/10/24 05:36 68 24 100 11/10/24 05:15 120/70 11/10/24 05:12 80 19 100 11/10/24 05:00 130/88 11/10/24 05:00 130/88 11/10/24 05:00 76 19 100 11/10/24 04:45 123/76 11/10/24 04:45 123/76 11/10/24 04:33 71 17 93 11/10/24 04:30 109/69 11/10/24 04:30 109/69 11/10/24 04:30 109/69 11/10/24 04:15 104/59 L 11/10/24 04:15 104/59 L 11/10/24 04:15 73 16 100 11/10/24 04:06 69 18 100 11/10/24 04:00 36.9 C 11/10/24 04:00 101/57 L 11/10/24 04:00 101/57 L 11/10/24 04:00 101/57 L 11/10/24 04:00 67 124/52 L 11/10/24 03:51 77 19 100 11/10/24 03:45 105/53 L 11/10/24 03:45 76 19 100 11/10/24 03:42 72 19 100 11/10/24 03:30 107/60 11/10/24 03:27 73 17 100 11/10/24 03:24 69 19 100 11/10/24 03:15 117/73 11/10/24 02:57 73 18 100 11/10/24 02:45 127/68 11/10/24 02:30 62 23 100 11/10/24 02:30 123/83 11/10/24 02:15 64 19 100 11/10/24 02:15 137/110 H 11/10/24 02:00 117/64 11/10/24 02:00 117/64 11/10/24 01:51 72 17 100 11/10/24 01:45 127/84 11/10/24 01:45 127/84 11/10/24 01:45 127/84 11/10/24 01:45 127/84 11/10/24 01:45 127/84 11/10/24 01:45 68 18 100 11/10/24 01:30 131/78 11/10/24 01:30 131/78 11/10/24 01:27 67 22 100 11/10/24 01:16 133/78 11/10/24 01:15 74 18 100 11/10/24 01:00 96/59 L 11/10/24 01:00 96/59 L 11/10/24 01:00 83 19 100 05/26/25 00:33 72 20 100 11/10/24 00:30 105/75 11/10/24 00:30 105/75 11/10/24 00:30 105/75 11/10/24 00:15 114/65 11/10/24 00:15 114/65 11/10/24 00:15 72 20 100 11/10/24 00:05 70 11/10/24 00:00 69 112/51 L 11/10/24 00:00 121/62 11/10/24 00:00 77 19 100 11/09/24 23:45 81 18 100 11/09/24 23:45 125/76 11/09/24 23:45 125/76 11/09/24 23:45 125/76 11/09/24 23:39 74 18 100 11/09/24 23:34 37.0 C 11/09/24 23:18 80 19 100 11/09/24 23:15 114/63 11/09/24 23:15 114/63 11/09/24 23:15 114/63 11/09/24 23:15 114/63 11/09/24 23:03 76 21 90 11/09/24 23:00 83 20 89 L 11/09/24 23:00 102/65 11/09/24 23:00 102/65 11/09/24 23:00 102/65 11/09/24 23:00 96 11/09/24 22:45 116/69 11/09/24 22:30 124/60 11/09/24 22:27 89 20 91 11/09/24 22:15 117/69 11/09/24 22:15 117/69 11/09/24 22:15 90 21 93 11/09/24 22:00 114/72 11/09/24 22:00 114/72 11/09/24 22:00 114/72 11/09/24 22:00 86 19 92 11/09/24 21:45 112/67 11/09/24 21:24 91 H 21 92 11/09/24 21:15 116/60 11/09/24 21:15 116/60 11/09/24 21:09 91 H 24 92 11/09/24 21:03 89 24 91 O2 Del Method O2 Del Method O2 Flow Rate 11/10/24 08:18 Room Air 11/10/24 08:18 11/10/24 08:10 11/10/24 08:03 11/10/24 08:00 11/10/24 07:57 11/10/24 07:52 11/10/24 07:46 11/10/24 07:45 11/10/24 07:28 11/10/24 07:15 11/10/24 07:15 11/10/24 07:00 11/10/24 06:57 11/10/24 06:45 11/10/24 06:45 11/10/24 06:45 11/10/24 06:36 11/10/24 06:30 11/10/24 06:30 11/10/24 06:30 11/10/24 06:21 11/10/24 06:15 11/10/24 06:15 11/10/24 05:36 11/10/24 05:15 11/10/24 05:12 11/10/24 05:00 11/10/24 05:00 11/10/24 05:00 11/10/24 04:45 11/10/24 04:45 11/10/24 04:33 11/10/24 04:30 11/10/24 04:30 11/10/24 04:30 11/10/24 04:15 11/10/24 04:15 11/10/24 04:15 11/10/24 04:06 11/10/24 04:00 11/10/24 04:00 11/10/24 04:00 11/10/24 04:00 11/10/24 04:00 11/10/24 03:51 11/10/24 03:45 11/10/24 03:45 11/10/24 03:42 11/10/24 03:30 11/10/24 03:27 11/10/24 03:24 11/10/24 03:15 11/10/24 02:57 11/10/24 02:45 11/10/24 02:30 11/10/24 02:30 11/10/24 02:15 11/10/24 02:15 11/10/24 02:00 11/10/24 02:00 11/10/24 01:51 11/10/24 01:45 11/10/24 01:45 11/10/24 01:45 11/10/24 01:45 11/10/24 01:45 11/10/24 01:45 11/10/24 01:30 11/10/24 01:30 11/10/24 01:27 11/10/24 01:16 11/10/24 01:15 11/10/24 01:00 11/10/24 01:00 11/10/24 01:00 11/10/24 00:33 11/10/24 00:30 11/10/24 00:30 11/10/24 00:30 11/10/24 00:15 11/10/24 00:15 11/10/24 00:15 11/10/24 00:05 11/10/24 00:00 11/10/24 00:00 11/10/24 00:00 11/09/24 23:45 11/09/24 23:45 11/09/24 23:45 11/09/24 23:45 11/09/24 23:39 11/09/24 23:34 11/09/24 23:18 11/09/24 23:15 11/09/24 23:15 11/09/24 23:15 11/09/24 23:15 11/09/24 23:03 11/09/24 23:00 11/09/24 23:00 11/09/24 23:00 11/09/24 23:00 11/09/24 23:00 Nasal Cannula 2 11/09/24 22:45 11/09/24 22:30 11/09/24 22:27 11/09/24 22:15 11/09/24 22:15 11/09/24 22:15 11/09/24 22:00 11/09/24 22:00 11/09/24 22:00 11/09/24 22:00 11/09/24 21:45 11/09/24 21:24 11/09/24 21:15 11/09/24 21:15 11/09/24 21:09 11/09/24 21:03 Lab & Micro Results (Past 24 Hours) RBC 2.68 M/uL (4.20-5.40) L 11/10/24 WBC 13.01 K/ul (4.8-10.8) H 11/10/24 Hgb 7.9 g/dl (12.0-16.0) L 11/10/24 Hct 22.6 % (37.0-47.0) L 11/10/24 MCV 84.3 fL (80.0-100.0) 11/10/24 MCH 29.5 pg (25.0-34.0) 11/10/24 MCHC 35.0 g/dL (32.0-36.0) 11/10/24 RDW Standard Deviation 48.5 fL (36.4-46.3) H 11/10/24 RDW Coefficient of Variation 15.9 % (11.5-14.5) H 11/10/24 Plt Count 108 K/uL (130-400) L 11/10/24 MPV 10.5 fL (9.4-12.4) 11/10/24 Nucleated Red Blood Cells % (auto) 0.6 % 11/10 Nucleated RBC Absolute Count (auto) 0.08 K/uL (0.00-0.12) 0 11/10/24 Neutrophils (%) (Auto) 81.2 % 11/10/24 Lymphocytes (%) (Auto) 8.7 % 11/10/24 Monocytes # (Auto) 1.08 K/uL (0.11-0.59) H 11/10/24 Eosinophils # (Auto) 0.00 K/uL (0.00-0.50) 11/10/24 Immature Granulocyte % (Auto) 1.6 % 11/10/24 Neutrophils # (Auto) 10.57 K/uL (1.40-6.50) H 11/10/24 Lymphocytes # (Auto) 1.13 K/uL (1.20-3.40) L 11/10/24 Monocytes # (Auto) 1.08 K/uL (0.11-0.59) H 11/10/24 Eosinophils # (Auto) 0.00 K/uL (0.00-0.50) 11/10/24 Basophils # (Auto) 0.02 K/uL (0.00-0.20) 11/10/24 Immature Granulocyte # (Auto) 0.21 K/uL (0.01-0.20) H 11/10 Polychromasia 2+ 11/10/24 Anisocytosis Present 11/10/24 Na 137 mmol/L (136-145) 11/10/24 K 3.9 mmol/L (3.5-5.1) 11/10/24 Cl 106 mmol/L (98-107) 11/10/24 CO2 25 mmol/L (21-32) 11/10/24 Anion Gap 6 (3-11) 11/10/24 BUN 25 mg/dl (6-23) H 11/10/24 Creatinine 0.95 mg/dl (0.6-1.2) 11/10/24 BUN/Creatinine Ratio 26.3 (10-20) H 11/10/24 Glu 154 mg/dl (70-99(Fasting)) H 11/10/24 Ca 7.9 mg/dl (8.6-10.3) L 11/10/24 Mg 2.1 mg/dl (1.7-2.4) 11/10/24 04:20 Calcium Level 7.9 mg/dl (8.6-10.3) L 11/10/24 04:20 I & O Totals 24 Hours 11/09/24 11/10/24 11/11/24 06:59 06:59 06:59 Intake Total 3220.361 / 3220.361 1207.271 / 1207.271 Output Total 940 / 940 1490 / 1490 150 / 150 Balance 2280.361 / 2280.361 -282.729 / -282.729 -150 / -150 Cumulative 11/06/24 19:30 thru 11/10/24 08:00 Intake Total 7560.651 Output Total 3125 Balance 4435.651 RT Ventilator Mngmt (Last Documented) Ventilator Ordered Settings Respiratory Rate 20 11/10/24 08:03 Ventilator - PT Measurements Respiratory Rate 20 Coding Level of Care Code 42419 SUB INP/OBS CARE 3/50MIN Diagnoses Atrial fibrillation I48.91 Atrial fibrillation type: unspecified Closed fracture of left hip S72.002A Encounter type: initial encounter Chronic heart failure with preserved ejection fraction I50.32 Severe pulmonary hypertension I27.20 Atrial fibrillation with controlled ventricular response I48.91 Severe mitral valve stenosis I05.0 Shock circulatory R57.9 Ex-smoker Z87.891 Aortic stenosis I35.0 Acute blood loss anemia D62 (1) Atrial fibrillation Atrial fibrillation type: unspecified Qualified Code(s): I48.91 - Unspecified atrial fibrillation (2) Closed fracture of left hip Encounter type: initial encounter Qualified Code(s): S72.002A - Fracture of unspecified part of neck of left femur, initial encounter for closed fracture
[2024-11-10] MEDS: CALCIUM GLUCONATE 1,000 MG/60 ML BAG IV SCH (09:51)
[2024-11-10] MEDS: FLUDROCORTISONE ACETATE 0.1 MG TAB PO SCH (09:56)
[2024-11-10] MEDS: MIDODRINE HCL 2.5 MG TAB PO SCH (11:41)
--- NOTE | 2024-11-10 13:08 | Hospitalist Progress Note ---
Date of Service November 10, 2024 Assessment & Plan (1) Closed left hip fracture: (2) Chronic heart failure with preserved ejection fraction: (3) Atrial fibrillation with controlled ventricular response: (4) Severe pulmonary hypertension: (5) Severe mitral valve stenosis: (6) Moderate mitral regurgitation: Plan 74-year-old female from [place] visiting [place] and the son is surgeon in our hospital with past medical history significant for hypertension, CHF is status post fall and left hip fracture. Patient says she has chronic pain in the left hip. Lately walking with a cane and has difficulty ambulating.. Patient says she can walk about a block slowly but family does not think so. She was trying to sit in a chair today when she slipped and fell down in the sitting position and hurt her left hip. Did not hit her head. No loss of consciousness. Having lot of pain in the left hip region. Denies any headache. No dizziness. She has cataract in left eye and vision is not that great in that eye. No headache. No runny nose or sore throat. No recent fevers. Denies chest pain. No shortness of breath. No nausea. No abdominal pain. Normal bowel and bladder movements. Currently hemodynamics okay. Hypotensive Shock Has significant valvular heart disease with atrial fibrillation and increased ventricular rate Following open reduction and internal fixation of left hip yesterday she was transferred to ICU for continued care She went into A-fib with RVR with decreasing blood pressure and now requiring 2 pressor agents to maintain blood pressure She was started with intravenous amiodarone to control the heart rate Discussed with the ehs teacher and the patient needs to be transferred to tertiary care center for possible valvular heart surgery to control the blood pressure on the heart rate [facility] senior sales administrator Dr. Davison is aware Discussed with the patient and she is agreeable The ehs teacher did talk to [facility] and the patient is excepted to ICU/CCU and awaiting stabilization of the Hb prior to discharge Blood pressure remains stable at 102/66 and that is maintained on very small doses of norepinephrine and vasopressin She has been feeling much better and the blood pressure is holding at around 122/53 Transfer to the tertiary center was canceled Closed left hip fracture Status post mechanical fall without any history of loss of consciousness without any warning Appreciate Ortho input and recommendation Appreciate cardiology input and recommendationshe is considered high perioperative cardiovascular risk due to cardiac conditions as stated below. she was cleared for proposed urgent surgery by the senior sales administrator with optimization of expected acceptable risk. Remains hemodynamically stable this morning without any cardiac and respiratory symptoms Recommended not to have any spinal anesthesia Denies any pain at rest now she is requiring pressor supports and also intravenous amiodarone to control heart rate Denies any pain at rest and will need to have PT and OT evaluation Acute blood loss anemia complicated by dilutional effect Hemoglobin dropped to 6.2 Heparin has been discontinued and patient will get blood transfusion She will be transferred after stabilization of the hemoglobin CT scan of the abdomen and pelvis did show subcutaneous bleeding as stated She received 3 units of PRBC and the hemoglobin is maintained at 8.5 as of this morning Heparin has been on hold Hemoglobin remains stable at 7.6 and no evidence of acute bleeding Consideration to start anticoagulation likely to be done from tomorrow Atrial fibrillation with controlled ventricular rate EKG is showing atrial fibrillation Troponins are unremarkable Will monitor on telemetry Appreciate cardiology input and recommendation Continue carvedilol Started on intravenous amiodarone and also intravenous heparin for atrial fibrillation following surgery Remains tachycardic at 106- amiodarone has just started from this morning She was started with intravenous heparin and that will be on hold Received 1 dose of digoxin and has been on amiodarone Heart rate remains below 100 Significant valvular heart disease Has moderate aortic stenosis, severe mitral valve stenosis and moderate mitral regurgitation Severe pulmonary hypertension as well Echo of the heart showed- A-fib with controlled ventricular response, moderate concentric LVH, LVEF 60 to 65%, left atrium is severely dilated, aortic valve sclerosis with moderate stenosis, severe mitral annular calcification with severe mitral stenosis and moderate mitral regurgitation there is mild tricuspid regurgitation as well the estimated systolic pulmonary pressure is 71 mmHg. Dilated inferior vena cava with collapsibility with sniff indicates an elevated right atrial pressure of 50 mmHg She will likely need valvular heart surgery/intervention to control the blood pressure Blood pressure remains stable and the heart rate is below 100 Transfer to a tertiary facility has been on hold She will need to have follow-up appointments with Cardiac/Thoracic surgeon as an outpatient Chronic heart failure with preserved EF History of CHF No evidence of acute CHF during this admission Does not require any Lasix at this time History of hypertension Continue Coreg and lisinopril hydrochlorothiazide Will monitor DVT prophylaxis SCDs on right leg Further anticoagulation as per Ortho Disposition Telemetry Full code. Admission and Anticipated Discharge Date Admission Date: November 06, 2024 Subjective 11/07/2024 The patient was seen and examined in the telemetry unit She was admitted with a mechanical fall and fracture of the left hip Noted to have atrial fibrillation on admission Denies any chest pain and/or palpitation Complains pain in the left hip with any movement of the left lower extremity 11/08/2024 The patient was seen and examined in ICU She remains extremely weak and lethargic She has been on 2 pressor support now and has been started on intravenous amiodarone to control the heart rate Denies any chest pain and/or palpitation and does not have any shortness of breath at rest No abdominal pain nausea and/or vomiting 11/09/2024 The patient was seen and examined in ICU She has been feeling a little better following blood transfusion Feels tired otherwise denies any significant pain or other symptoms 11/10/2024 The patient was seen and examined in ICU She has been feeling much better and denies any significant symptoms No shortness of breath and no pain at rest Review of Systems Review of Systems: Looks pale and very anxious. Profoundly weak and lethargic with cold extremities Physical Exam Physical Exam: Lying in bed with minimal shortness of breath at rest and distress generally Constitutional: well developed, well nourished, + ill appearing and + obese Eyes: PERRL, conjunctivae normal, anicteric sclerae ENMT: external ear and nose normal, oropharynx normal Neck: trachea midline, no thyromegaly Respiratory: no respiratory distress Auscultation: lungs clear to auscultation bilaterally and + diminished lung sounds ( at the bases) Cardiovascular: Rate/Rhythm: + irregularly irregular; not tachycardic Heart Sounds: normal S1, normal S2 and + murmur Extremities: + edema (Trace edema bilaterally) Gastrointestinal (Abdomen): Inspection/Auscultation: normal bowel sounds; abdomen not distended Percussion/Palpation: abdomen soft; abdomen nontender Musculoskeletal: left hip pain with movement of the left lower extremity Neurologic: normal touch/pain/proprioception and moves all extremities (Less movement with the left lower extremity due to fracture) Psychiatric: A+Ox3, euthymic affect Lymphatic: no cervical or axillary lymphadenopathy Results & Data Results & Data Vital Signs (Past 12 Hours) Vital Signs Temp Pulse Resp BP BP Pulse Ox O2 Del Method 11/10/24 10:37 122/53 L 11/10/24 10:25 122/55 L 11/10/24 09:46 117/54 L 11/10/24 09:45 107/55 L 11/10/24 09:45 94 H 16 92 11/10/24 09:29 81/40 L 11/10/24 09:15 116/66 11/10/24 09:15 84 19 99 11/10/24 09:06 82 21 100 11/10/24 09:00 97/62 L 11/10/24 08:54 87 19 99 11/10/24 08:45 109/78 11/10/24 08:45 84 20 99 11/10/24 08:38 Nasal Cannula 11/10/24 08:30 89 20 93 11/10/24 08:30 101/60 11/10/24 08:18 97 Room Air 11/10/24 08:18 120/50 L 11/10/24 08:10 36.7 C 11/10/24 08:03 86 20 100 11/10/24 08:00 110/78 11/10/24 07:57 83 21 100 11/10/24 07:52 115/49 L 11/10/24 07:46 117/65 11/10/24 07:45 83 23 95 11/10/24 07:28 85 11/10/24 07:15 75 19 100 11/10/24 07:15 127/64 11/10/24 07:00 122/65 11/10/24 06:57 86 19 91 11/10/24 06:45 115/74 11/10/24 06:45 115/74 11/10/24 06:45 76 13 99 11/10/24 06:36 78 25 H 100 11/10/24 06:30 115/79 11/10/24 06:30 115/79 11/10/24 06:30 115/79 11/10/24 06:21 79 18 100 11/10/24 06:15 72 18 100 11/10/24 06:15 108/67 11/10/24 05:36 68 24 100 11/10/24 05:15 120/70 11/10/24 05:12 80 19 100 11/10/24 05:00 130/88 11/10/24 05:00 130/88 11/10/24 05:00 76 19 100 0526/25 04:45 123/76 11/10/24 04:45 123/76 11/10/24 04:33 71 17 93 11/10/24 04:30 109/69 11/10/24 04:30 109/69 11/10/24 04:30 109/69 11/10/24 04:15 104/59 L 11/10/24 04:15 104/59 L 11/10/24 04:15 73 16 100 11/10/24 04:06 69 18 100 11/10/24 04:00 36.9 C 11/10/24 04:00 101/57 L 11/10/24 04:00 101/57 L 11/10/24 04:00 101/57 L 11/10/24 04:00 67 124/52 L 11/10/24 03:51 77 19 100 11/10/24 03:45 105/53 L 11/10/24 03:45 76 19 100 11/10/24 03:42 72 19 100 11/10/24 03:30 107/60 11/10/24 03:27 73 17 100 11/10/24 03:24 69 19 100 11/10/24 03:15 117/73 11/10/24 02:57 73 18 100 11/10/24 02:45 127/68 11/10/24 02:30 62 23 100 11/10/24 02:30 123/83 11/10/24 02:15 64 19 100 11/10/24 02:15 137/110 H 11/10/24 02:00 117/64 11/10/24 02:00 117/64 11/10/24 01:51 72 17 100 11/10/24 01:45 127/84 11/10/24 01:45 127/84 11/10/24 01:45 127/84 11/10/24 01:45 127/84 11/10/24 01:45 127/84 11/10/24 01:45 68 18 100 11/10/24 01:30 131/78 11/10/24 01:30 131/78 11/10/24 01:27 67 22 100 11/10/24 01:16 133/78 11/10/24 01:15 74 18 100 O2 Flow Rate 11/10/24 10:37 11/10/24 10:25 11/10/24 09:46 11/10/24 09:45 11/10/24 09:45 11/10/24 09:29 11/10/24 09:15 11/10/24 09:15 11/10/24 09:06 11/10/24 09:00 11/10/24 08:54 11/10/24 08:45 11/10/24 08:45 11/10/24 08:38 2 11/10/24 08:30 11/10/24 08:30 11/10/24 08:18 11/10/24 08:18 11/10/24 08:10 11/10/24 08:03 11/10/24 08:00 11/10/24 07:57 11/10/24 07:52 11/10/24 07:46 11/10/24 07:45 11/10/24 07:28 11/10/24 07:15 11/10/24 07:15 11/10/24 07:00 11/10/24 06:57 11/10/24 06:45 11/10/24 06:45 11/10/24 06:45 11/10/24 06:36 11/10/24 06:30 11/10/24 06:30 11/10/24 06:30 11/10/24 06:21 11/10/24 06:15 11/10/24 06:15 11/10/24 05:36 11/10/24 05:15 11/10/24 05:12 11/10/24 05:00 11/10/24 05:00 11/10/24 05:00 11/10/24 04:45 11/10/24 04:45 11/10/24 04:33 11/10/24 04:30 11/10/24 04:30 11/10/24 04:30 11/10/24 04:15 11/10/24 04:15 11/10/24 04:15 11/10/24 04:06 11/10/24 04:00 11/10/24 04:00 11/10/24 04:00 11/10/24 04:00 11/10/24 04:00 11/10/24 03:51 11/10/24 03:45 11/10/24 03:45 11/10/24 03:42 11/10/24 03:30 11/10/24 03:27 11/10/24 03:24 11/10/24 03:15 11/10/24 02:57 11/10/24 02:45 11/10/24 02:30 11/10/24 02:30 11/10/24 02:15 11/10/24 02:15 11/10/24 02:00 11/10/24 02:00 11/10/24 01:51 11/10/24 01:45 11/10/24 01:45 11/10/24 01:45 11/10/24 01:45 11/10/24 01:45 11/10/24 01:45 11/10/24 01:30 11/10/24 01:30 11/10/24 01:27 11/10/24 01:16 11/10/24 01:15 Laboratory Results Short CBC 11/09/24 11/10/24 11/10/24 Range/Units 18:24 04:20 11:48 WBC 15.38 H 13.01 H (4.8-10.8) K/ul Hgb 8.1 L 7.9 L 7.6 L (12.0-16.0) g/dl Hct 22.5 L 22.6 L (37.0-47.0) % Plt Count 102 L 108 L (130-400) K/uL [facility] 11/10/24 04:20 Sodium 137 Potassium 3.9 Chloride 106 Carbon Dioxide 25 BUN 25 H Creatinine 0.95 D Glucose 154 H Calcium 7.9 L Medications Administered Current Inpatient Medications Fludrocortisone Acetate (Fludrocortisone Acetate 0.1 Mg Tab) 0.1 mg PO [facility] Stop: 12/10/24 09:14 Last Admin: 11/10/24 09:56 Dose: 0.1 mg Hydromorphone HCl (Hydromorphone Inj 0.5 Mg/0.5 Ml Syr) 0.25 mg IV Q4H PRN PRN Reason: Moderate Pain (Scale 4, 5, 6) Stop: 11/20/24 23:15 Hydromorphone HCl (Hydromorphone Inj 0.5 Mg/0.5 Ml Syr) 0.5 mg IV Q4H PRN PRN Reason: Severe Pain (Scale 7, 8, 9,10) Stop: 11/20/24 23:15 Last Admin: 11/10/24 08:49 Dose: 0.5 mg Pantoprazole Sodium (Protonix) 40 mg in 10 mls @ 5 mls/min IV DAILY [facility] Stop: 12/08/24 08:59 Last Admin: 11/10/24 07:56 Dose: 5 mls/min Heparin Sodium/Dextrose (Heparin 30742 Unit/500 Ml D5w) 25,000 units in 500 mls @ 0 mls/hr IV .Q0M [facility]; Protocol Stop: 12/07/24 18:44 Last Titration: 11/10/24 06:48 Dose: 0 units/hr, 0 mls/hr Hydrocortisone Sodium (Succinate 50 mg/ Syringe) 1 mls @ 4 mls/min IV Q6H [facility] Stop: 12/08/24 00:59 Last Admin: 11/10/24 12:48 Dose: 4 mls/min Amiodarone HCl/Dextrose (Nexterone / D5w) 360 mg in 200 mls @ 16.667 mls/hr IV .Q12H [facility] Stop: 12/08/24 14:14 Last Admin: 11/10/24 12:48 Dose: 0.5 mg/min, 16.7 mls/hr Norepinephrine Bitartrate (Levophed/Nss) 16 mg in 250 mls @ 33.035 mls/hr IV .Q7H35M [facility]; Protocol Stop: 12/08/24 09:29 Last Titration: 11/10/24 10:37 Dose: 0 mcg/kg/min, 0 mls/hr Metoclopramide HCl (Metoclopramide Hcl Inj 5 Mg/Ml 2 Ml Vial) 10 mg IV Q6H PRN PRN Reason: Nausea And Vomiting Stop: 12/08/24 16:44 Midodrine (Midodrine Hcl 2.5 Mg Tab) 5 mg PO TID@0800,1200,1700 [facility] Stop: 12/10/24 11:59 Last Admin: 11/10/24 11:41 Dose: 5 mg Nitroglycerin (Nitroglycerin Sl 0.4 Mg/Tab Tab) 0.4 mg SL Q5M PRN PRN Reason: Chest Pain Stop: 12/06/24 23:15 Ondansetron HCl (Ondansetron Inj 2 Mg/Ml 2 Ml Vial) 4 mg IV Q6H PRN PRN Reason: Nausea And Vomiting Stop: 12/06/24 23:20 Last Admin: 11/08/24 19:20 Dose: 4 mg Polyethylene Glycol (Polyethylene (Miralax) 17 Gm Pack) 17 gm PO DAILY PRN PRN Reason: Constipation Stop: 12/06/24 23:15
[2024-11-11 04:26] LABS: Basophils # (auto) 0.02 K/uL (0.00-0.20); Basophils % (auto) 0.2 %; Hematocrit (blood only) 22.3 % (37.0-47.0); Hemoglobin 7.8 g/dl (12.0-16.0); Immature Granulocytes # (auto) 0.52 K/uL (0.01-0.20); Immature Granulocytes % (auto) 4.1 %; Lymphocytes # (auto) 1.08 K/uL (1.20-3.40); Lymphocytes % (auto) 8.5 %; Mean Corpuscular Hemoglobin 30.1 pg (25.0-34.0); Mean Corpuscular Volume 86.1 fL (80.0-100.0); Mean Platelet Volume 10.4 fL (9.4-12.4); Monocytes # (auto) 0.95 K/uL (0.11-0.59); Monocytes % (auto) 7.5 %; Neutrophils # (auto) 10.15 K/uL (1.40-6.50); Neutrophils % (auto) 79.7 %; Nucleated RBC % (auto) 3.9 %; Platelet Count 134 K/uL (130-400); RDW Coefficient of Variation 15.8 % (11.5-14.5); RDW Standard Deviation 47.9 fL (36.4-46.3); Red Blood Count 2.59 M/uL (4.20-5.40); White Blood Count 12.72 K/ul (4.8-10.8)
[2024-11-11 04:43] LABS: BUN Creatinine Ratio 29.5 (10-20); Creatinine Clr Calc Pharmacy 72.3 ml/min; Magnesium 1.9 mg/dl (1.7-2.4); Phosphorus 2.7 mg/dl (2.5-4.9); Potassium 3.9 mmol/L (3.5-5.1)
[2024-11-11 05:26] LABS: Polychromasia 1+
--- NOTE | 2024-11-11 06:58 | Orthopedic Progress Note ---
Date of Service November 11, 2024 Assessment & Plan (1) Closed left hip fracture: Plan: IMPRESSION: POD #4 s/p ORIF Left hip fracture, acute anemia blood loss, new on- set A-fib, remains in ICU PLAN: BP & HR improved Acute anemia blood loss, transfused 11/08-, Hgb 7.8 When able OOB to chair, WBAT with walker, will likely need assistance PT/OT DVT prophylaxis: Heparin currently on hold due to drop in Hgb, mechanical compression Continue care per Chronometer Tester and Hospitalist service. Dressing changed 11/09/24, keep covered in hospital, change as needed Admission and Anticipated Discharge Date Admission Date: November 06, 2024 Subjective Feeling better. Only able to sit at the side of the bed yesterday. Physical Exam Physical Exam: LLE: Able to wiggle toes & ankle. 2+ DP pulse. Calf soft but tender. Negative Celi. Dressings clean, dry, & intact. Results & Data Vital Signs (Past 12 Hours) Vital Signs Temp Pulse Resp BP Pulse Ox Pulse Ox O2 Del Method 11/11/24 06:39 72 22 11/11/24 06:00 113/69 11/11/24 05:54 77 22 11/11/24 05:51 78 24 11/11/24 05:03 70 20 11/11/24 05:00 117/58 L 11/11/24 05:00 117/58 L 11/11/24 05:00 117/58 L 11/11/24 04:57 70 18 11/11/24 04:48 64 18 11/11/24 04:16 17 95 Room Air 11/11/24 04:16 36.8 C 11/11/24 04:00 78 19 11/11/24 04:00 108/64 11/11/24 04:00 69 119/50 L 11/11/24 03:42 71 19 11/11/24 03:03 67 20 11/11/24 03:00 119/66 11/11/24 03:00 119/66 11/11/24 02:48 64 21 11/11/24 02:03 63 18 11/11/24 02:01 100/56 L 11/11/24 02:01 100/56 L 11/11/24 01:57 70 19 11/11/24 01:30 69 27 H 11/11/24 01:12 74 20 11/11/24 01:10 36.6 C 11/11/24 01:00 111/63 11/11/24 01:00 111/63 11/11/24 00:57 71 26 H 11/11/24 00:30 66 19 11/11/24 00:00 99/57 L 11/11/24 00:00 99/57 L 11/11/24 00:00 99/57 L 11/11/24 00:00 99/57 L 11/11/24 00:00 99/57 L 11/11/24 00:00 72 23 95 11/11/24 00:00 77 112/48 L 11/10/24 23:39 69 20 11/10/24 23:24 69 20 11/10/24 23:00 95 11/10/24 23:00 102/53 L 95 11/10/24 23:00 102/53 L 11/10/24 22:51 59 L 18 11/10/24 22:36 70 17 11/10/24 22:00 87/51 L 11/10/24 22:00 87/51 L 11/10/24 22:00 87/51 L 11/10/24 22:00 87/51 L 11/10/24 22:00 74 18 94 11/10/24 21:51 73 20 11/10/24 21:09 70 20 11/10/24 21:00 109/65 95 11/10/24 21:00 36.6 C 11/10/24 20:57 76 21 11/10/24 20:30 72 19 11/10/24 20:03 81 19 11/10/24 20:01 106/58 L 11/10/24 20:01 106/58 L 11/10/24 20:01 106/58 L 11/10/24 20:01 106/58 L 11/10/24 20:00 71 101/51 L 11/10/24 19:54 77 20 93 11/10/24 19:42 76 18 11/10/24 19:03 75 18 11/10/24 19:00 99/57 L 11/10/24 19:00 99/57 L O2 Del Method 11/11/24 06:39 11/11/24 06:00 11/11/24 05:54 11/11/24 05:51 11/11/24 05:03 11/11/24 05:00 11/11/24 05:00 11/11/24 05:00 11/11/24 04:57 11/11/24 04:48 11/11/24 04:16 11/11/24 04:16 11/11/24 04:00 11/11/24 04:00 11/11/24 04:00 11/11/24 03:42 11/11/24 03:03 11/11/24 03:00 11/11/24 03:00 11/11/24 02:48 11/11/24 02:03 11/11/24 02:01 11/11/24 02:01 11/11/24 01:57 11/11/24 01:30 11/11/24 01:12 11/11/24 01:10 11/11/24 01:00 11/11/24 01:00 11/11/24 00:57 11/11/24 00:30 11/11/24 00:00 11/11/24 00:00 11/11/24 00:00 11/11/24 00:00 11/11/24 00:00 11/11/24 00:00 11/11/24 00:00 11/10/24 23:39 11/10/24 23:24 11/10/24 23:00 Room Air 11/10/24 23:00 11/10/24 23:00 11/10/24 22:51 11/10/24 22:36 11/10/24 22:00 11/10/24 22:00 11/10/24 22:00 11/10/24 22:00 11/10/24 22:00 11/10/24 21:51 11/10/24 21:09 11/10/24 21:00 11/10/24 21:00 11/10/24 20:57 11/10/24 20:30 11/10/24 20:03 11/10/24 20:01 11/10/24 20:01 11/10/24 20:01 11/10/24 20:01 11/10/24 20:00 11/10/24 19:54 11/10/24 19:42 11/10/24 19:03 11/10/24 19:00 11/10/24 19:00 Laboratory Results 11/11/24 11/10/24 Range/Units 03:59 11:48 WBC 12.72 H (4.8-10.8) K/ul RBC 2.59 L (4.20-5.40) M/uL Hgb 7.8 L 7.6 L (12.0-16.0) g/dl Hct 22.3 L (37.0-47.0) % MCV 86.1 (80.0-100.0) fL MCH 30.1 (25.0-34.0) pg MCHC 35.0 (32.0-36.0) g/dL RDW Std Deviation 47.9 H (36.4-46.3) fL RDW Coeff of Gifty 15.8 H (11.5-14.5) % Plt Count 134 (130-400) K/uL MPV 10.4 (9.4-12.4) fL Immature Gran % (Auto) 4.1 % Neut % (Auto) 79.7 % Lymph % (Auto) 8.5 % [place] % (Auto) 7.5 % Eos % (Auto) 0.0 % Baso % (Auto) 0.2 % Neut # (Auto) 10.15 H (1.40-6.50) K/uL Lymph # (Auto) 1.08 L (1.20-3.40) K/uL [place] # (Auto) 0.95 H (0.11-0.59) K/uL Eos # (Auto) 0.00 (0.00-0.50) K/uL Baso # (Auto) 0.02 (0.00-0.20) K/uL Immature Gran # (Auto) 0.52 H (0.01-0.20) K/uL Absolute Nucleated RBC 0.50 H (0.00-0.12) K/uL Nucleated RBC % (auto) 3.9 % Polychromasia 1+ Sodium 135 L (136-145) mmol/L Potassium 3.9 (3.5-5.1) mmol/L Chloride 104 (98-107) mmol/L Carbon Dioxide 25 (21-32) mmol/L Anion Gap 6 (3-11) BUN 26 H (6-23) mg/dl Creatinine 0.88 (0.6-1.2) mg/dl Est Cr Clr Drug Dosing 72.3 ml/min eGFR 68.92 BUN/Creatinine Ratio 29.5 H (10-20) Glucose 153 H (70-99(Fasting)) mg/dl Calcium 8.0 L (8.6-10.3) mg/dl Ionized Calcium 1.14 (1.12-1.32) mmol/L Phosphorus 2.7 D (2.5-4.9) mg/dl Magnesium 1.9 (1.7-2.4) mg/dl
[2024-11-11] MEDS: MIDODRINE HCL 10 MG TAB PO SCH (07:53)
[2024-11-11] MEDS: CALCIUM GLUCONATE 1,000 MG/60 ML BAG IV STA (09:06)
[2024-11-11] MEDS: oxyCODONE/ACETAMINOPHEN 5mg/325mg TAB PO PRN (10:16)
[2024-11-11] MEDS: Heparin IV Adult Wt-Based Low-Dose *NO* INITIAL Bolus Protocol IV STA (10:52)
[2024-11-11] MEDS: HEPARIN 25000 UNIT/500 ML D5W 25,000 UNITS/500 ML BAG IV SCH (10:53)
--- NOTE | 2024-11-11 11:00 | Critical Care Progress Note ---
Date of Service November 11, 2024 Assessment & Plan (1) Atrial fibrillation: (2) Closed fracture of left hip: (3) Chronic heart failure with preserved ejection fraction: (4) Severe pulmonary hypertension: (5) Atrial fibrillation with controlled ventricular response: (6) Severe mitral valve stenosis: (7) Shock circulatory: (8) Ex-smoker: (9) Aortic stenosis: (10) Acute blood loss anemia: Plan Reason Critically Ill: 74-year-old female with a history of severe mitral stenosis, mild aortic stenosis and moderate aortic stenosis admitted status post fall with hip fracture. Course complicated by significant hypotension requiring 2 vasopressor agents and atrial fibrillation with rapid ventricular response. 24-hour events: Patient's vasopressor requirement has decreased. Midodrine increased to 10mg tid. Last transfusion on 11/10/2024. Recommendations: Neuro -no current issues. Continue pain management PRN Percocet and PRN Dilaudid for breakthrough pain. Initiate PT and OT. Out of bed to chair as tolerated. Cardiac -hypotension improving. Continue to wean Robbie-Synephrine. Increase midodrine to 10mg daily. Add Florinef. Would like to diurese as soon as hemodynamics allow. Titrate to maintain systolic blood pressure greater than 100. Continue amiodarone until off vasopressors; discussed with cardiology who recommends d/c amiodarone and staring beta-jose once off pressors.. Anticoagulation restarted low dose heparin protocol with no bolus Xa goal 0.3- 0.7. Long-term will potentially need DOAC or Coumadin. Will need long-term follow-up for her valvular heart disease. Suspect her pulmonary hypertension is secondary to her valvular heart disease although cannot rule out a component of diastolic heart failure as well. Defer digoxin to cardiology. Respiratory -weaning oxygen as tolerated. Continue incentive spirometry. No evidence of acute bronchospasm. Out of bed to chair as tolerated GI -advancing diet to full liquid as tolerated. RENAL/LYTES -ICU electrolyte replacement protocol. ENDO - currently on stress dose steroids for relative adrenal insufficiency. Continue Florinef. Wean once hemodynamics stabilize. Glycemic control per protocol HEME -postoperative hematoma. Patient's received 3 units packed cells. Hemoglobin stable this morning. Platelet count appears to be recovering. Continue to monitor. ID -following clinically. Off antibiotics Musculoskeletal -status post repair left hip fracture. Mobilization as tolerated by hemodynamics. --Prophylaxis VTE: IPC. On therapeutic anticoagulation for NOAF. GI: Pantoprazole Lines: Right IJ, Gutierrez Diet: Clear liquid Total of 40 minutes was spent reviewing case, coordinating care with bedside critical care nurse and and other specialists, updating family, and and documentation. Admission and Anticipated Discharge Date Admission Date: November 06, 2024 Supervising Physician Co-Signing Physician Notes Patient seen and examined. EMR reviewed. Discussed on multidisciplinary rounds and with bedside critical care nurse as well as with overnight critical care ZAID and critical care ZAID. Patient continues to show slow and steady clinical improvement. Her hemoglobin has been stable. She is working with physical therapy. Continuing efforts to wean pressors. Will increase midodrine to 10 mg 3 times daily. Continue Florinef and stress dose steroids at this point in time. Discussed with cardiology. Will continue amiodarone for now. Start heparin infusion. Once hemodynamics are stable, we will consider transition to oral rate control agent such as beta-blockers if hemodynamics can tolerate. Digoxin would be a secondary option. Will continue to monitor in the ICU pending improvement in her hemodynamics. Can discontinue arterial line at this point in time. Subjective "I feel good this am." Patient remains on phenylephrine gtt 0.2-0.6 mcg/kg/min. Midodrine increased to 10mg tid. Heparin gtt low dose w/o bolus started. Remains in amiodarone gtt. Will d/c and start beta jose once off vasopressors. Review of Systems 2 Review of Systems: All systems reviewed & are unremarkable except as noted in Subjective Physical Exam 2 Constitutional: well developed, well nourished, + ill appearing and + obese Neck: trachea midline, no thyromegaly Respiratory: no respiratory distress Auscultation: lungs clear to auscultation bilaterally and + diminished lung sounds ( at the bases) Cardiovascular: Rate/Rhythm: + irregularly irregular; not tachycardic Heart Sounds: normal S1, normal S2 and + murmur Extremities: + edema (Trace edema bilaterally) Gastrointestinal (Abdomen): Inspection/Auscultation: normal bowel sounds; abdomen not distended Percussion/Palpation: abdomen soft; abdomen nontender Neurologic: normal touch/pain/proprioception and moves all extremities (Less movement with the left lower extremity due to fracture) Psychiatric: A+Ox3, euthymic affect Lymphatic: no cervical or axillary lymphadenopathy Results & Data Results & Data Vital Signs (Past 12 Hours) Vital Signs Temp Pulse Resp BP Pulse Ox Pulse Ox O2 Del Method 11/11/24 06:39 72 22 11/11/24 06:00 113/69 11/11/24 05:54 77 22 11/11/24 05:51 78 24 11/11/24 05:03 70 20 11/11/24 05:00 117/58 L 11/11/24 05:00 117/58 L 11/11/24 05:00 117/58 L 11/11/24 04:57 70 18 11/11/24 04:48 64 18 11/11/24 04:16 17 95 Room Air 11/11/24 04:16 36.8 C 11/11/24 04:00 78 19 11/11/24 04:00 108/64 11/11/24 04:00 69 119/50 L 11/11/24 03:42 71 19 11/11/24 03:03 67 20 11/11/24 03:00 119/66 11/11/24 03:00 119/66 11/11/24 02:48 64 21 11/11/24 02:03 63 18 11/11/24 02:01 100/56 L 11/11/24 02:01 100/56 L 11/11/24 01:57 70 19 11/11/24 01:30 69 27 H 11/11/24 01:12 74 20 11/11/24 01:10 36.6 C 11/11/24 01:00 111/63 11/11/24 01:00 111/63 11/11/24 00:57 71 26 H 11/11/24 00:30 66 19 11/11/24 00:00 99/57 L 11/11/24 00:00 99/57 L 11/11/24 00:00 99/57 L 11/11/24 00:00 99/57 L 11/11/24 00:00 99/57 L 11/11/24 00:00 72 23 95 11/11/24 00:00 77 112/48 L 11/10/24 23:39 69 20 11/10/24 23:24 69 20 11/10/24 23:00 95 11/10/24 23:00 102/53 L 95 11/10/24 23:00 102/53 L O2 Del Method 11/11/24 06:39 11/11/24 06:00 11/11/24 05:54 11/11/24 05:51 11/11/24 05:03 11/11/24 05:00 11/11/24 05:00 11/11/24 05:00 11/11/24 04:57 11/11/24 04:48 11/11/24 04:16 11/11/24 04:16 11/11/24 04:00 11/11/24 04:00 11/11/24 04:00 11/11/24 03:42 11/11/24 03:03 11/11/24 03:00 11/11/24 03:00 11/11/24 02:48 11/11/24 02:03 11/11/24 02:01 11/11/24 02:01 11/11/24 01:57 11/11/24 01:30 11/11/24 01:12 11/11/24 01:10 11/11/24 01:00 11/11/24 01:00 11/11/24 00:57 11/11/24 00:30 11/11/24 00:00 11/11/24 00:00 11/11/24 00:00 11/11/24 00:00 11/11/24 00:00 11/11/24 00:00 11/11/24 00:00 11/10/24 23:39 11/10/24 23:24 11/10/24 23:00 Room Air 11/10/24 23:00 11/10/24 23:00 Laboratory Results 11/11/24 03:59 11/11/24 03:59 Abnormal Lab Results 11/10/24 11/11/24 11:48 03:59 WBC 12.72 H RBC 2.59 L Hgb 7.6 L 7.8 L Hct 22.3 L MCV 86.1 MCH 30.1 MCHC 35.0 RDW Std Deviation 47.9 H RDW Coeff of Gifty 15.8 H Plt Count 134 MPV 10.4 Immature Gran % (Auto) 4.1 Neut % (Auto) 79.7 Lymph % (Auto) 8.5 Cavalier % (Auto) 7.5 Eos % (Auto) 0.0 Baso % (Auto) 0.2 Neut # (Auto) 10.15 H Lymph # (Auto) 1.08 L Cavalier # (Auto) 0.95 H Eos # (Auto) 0.00 Baso # (Auto) 0.02 Immature Gran # (Auto) 0.52 H Absolute Nucleated RBC 0.50 H Nucleated RBC % (auto) 3.9 Polychromasia 1+ Sodium 135 L Potassium 3.9 Chloride 104 Carbon Dioxide 25 Anion Gap 6 BUN 26 H Creatinine 0.88 Est Cr Clr Drug Dosing 72.3 eGFR 68.92 BUN/Creatinine Ratio 29.5 H Glucose 153 H Calcium 8.0 L Ionized Calcium 1.14 Phosphorus 2.7 D Magnesium 1.9 Diagnostic Findings No recent diagnostic studies. Coding Level of Care Code 79180 SUB INP/OBS CARE 50MIN Diagnoses Atrial fibrillation I48.91 Atrial fibrillation type: unspecified Closed fracture of left hip S72.002A Encounter type: initial encounter Chronic heart failure with preserved ejection fraction I50.32 Severe pulmonary hypertension I27.20 Atrial fibrillation with controlled ventricular response I48.91 Severe mitral valve stenosis I05.0 Shock circulatory R57.9 Ex-smoker Z87.891 Aortic stenosis I35.0 Acute blood loss anemia D62 (1) Atrial fibrillation Atrial fibrillation type: unspecified Qualified Code(s): I48.91 - Unspecified atrial fibrillation (2) Closed fracture of left hip Encounter type: initial encounter Qualified Code(s): S72.002A - Fracture of unspecified part of neck of left femur, initial encounter for closed fracture
--- NOTE | 2024-11-11 12:38 | Cardiology Progress Note ---
Date of Service November 11, 2024 Assessment & Plan (1) Severe mitral valve stenosis: (2) Moderate mitral regurgitation: (3) Aortic stenosis: (4) Atrial fibrillation with controlled ventricular response: (5) Severe pulmonary hypertension: (6) Chronic heart failure with preserved ejection fraction: (7) Shock circulatory: Plan Assessment / Plan: Medically complex 74-year-old female who resided in [place] presents with mechanical fall and acute left hip fracture. She was deemed high perioperative cardiovascular risk due to severe mitral valve stenosis (mean diastolic gradient of 10-14 with ventricular rate of 84 bpm) with severe pulmonary hypertension (PASP estimated to be 71 mm Hg). Moderate mitral regurgitation and mild to moderate aortic valve stenosis also noted. LV systolic function preserved (LVEF 60-65%) without regional wall motion abnormality. Post operatively, patient developed hypotension and Hgb trended zackery to 6.2 g/dl, having been 15.8 g/dl on presentation. Heparin was discontinued. Patient required support with vasopressin and norepiniphrine and has received transfustion of 3 units of PBRCs, with Hgb 7.9 g/dl on 11/10/24. CT left femur 11/08/24 revealed large subcutaneous and gluteal hematoma 1. Shock secondary to acute blood loss and Valvular disease 2. Atrial fibrillation with RVR * rate controlled with amiodarone * the use of other AV emil blockers is limited due to hypotension * anticoagulation to be held until surgical site hematoma and hemoglobin are stable * when BP improves start on metoprolol 3. Severe mitral stenosis with severe pulmonary Hypertension - 11/11/2024 Patient hemodynamically improved after transfusion though hemoglobin still below 8. Heart rates much better controlled with combination of IV amiodarone, volume, blood resuscitation. Duration of atrial fibrillation uncertain but newly observed Issues to be addressed as follows 1. Atrial fibrillation with rapid ventricular response: Current rates controlled/improved with IV amiodarone. Ultimate goal would be discontinue this drug given low likelihood of return to sinus rhythm and possible increased risk for thromboembolic event if spontaneous conversion given uncertain duration of atrial fibrillation. Goal be to begin oral metoprolol as pressors weaned. Will require anticoagulation with heparin to warfarin once anemia concerns resolved 2. Valvular heart disease: Mixed aortic and mitral valve stenosis. Will reassess now heart rates controlled. May see improvement in mitral valve gradients now that rate is slowed, anemia being addressed Ultimately will require anticoagulation 3. Mixed etiology acute postoperative shock secondary to valvular disease as well as atrial fibrillation with rapid response, acute blood loss/anemia. Patient without a current complaint and improving hemodynamically plan as outlined above Admission and Anticipated Discharge Date Admission Date: November 06, 2024 Subjective Patient was seen and personally examined. Alert and talkative. Without acute complaint. Still on low-dose pressors in the intensive care unit but heart rate, blood pressure substantially improved. No chest pains or discomfort. Review of Systems Review of Systems: All systems reviewed & are unremarkable except as noted in Subjective Physical Exam Constitutional: no acute distress Eyes: PERRL, conjunctivae normal, anicteric sclerae Neck: trachea midline, no thyromegaly Respiratory: normal respiratory effort, lungs clear to auscultation Cardiovascular: Rate/Rhythm: + irregularly irregular Heart Sounds: + murmur (Grade 3/6 systolic) Vessels: no JVD Extremities: no edema Gastrointestinal (Abdomen): normal bowel sounds, soft, nontender, no hepatosplenomegaly Results & Data Vital Signs (Past 12 Hours) Vital Signs Temp Pulse Resp BP Pulse Ox O2 Del Method 11/11/24 08:00 Room Air 11/11/24 06:39 72 22 11/11/24 06:00 113/69 11/11/24 05:54 77 22 11/11/24 05:51 78 24 11/11/24 05:03 70 20 11/11/24 05:00 117/58 L 11/11/24 05:00 117/58 L 11/11/24 05:00 117/58 L 11/11/24 04:57 70 18 11/11/24 04:48 64 18 11/11/24 04:16 17 95 Room Air 11/11/24 04:16 36.8 C 11/11/24 04:00 78 19 11/11/24 04:00 108/64 11/11/24 04:00 69 119/50 L 11/11/24 03:42 71 19 11/11/24 03:03 67 20 11/11/24 03:00 119/66 11/11/24 03:00 119/66 11/11/24 02:48 64 21 11/11/24 02:03 63 18 11/11/24 02:01 100/56 L 11/11/24 02:01 100/56 L 11/11/24 01:57 70 19 11/11/24 01:30 69 27 H 11/11/24 01:12 74 20 11/11/24 01:10 36.6 C 11/11/24 01:00 11111/11/24 01:00 11/11/24 00:57 71 26 H Laboratory Results Laboratory Results - last 24 hr 11/11/24 03:59 WBC 12.72 H RBC 2.59 L Hgb 7.8 L Hct 22.3 L MCV 86.1 MCH 30.1 MCHC 35.0 RDW Std Deviation 47.9 H RDW Coeff of Gifty 15.8 H Plt Count 134 MPV 10.4 Immature Gran % (Auto) 4.1 Neut % (Auto) 79.7 Lymph % (Auto) 8.5 Todd % (Auto) 7.5 Eos % (Auto) 0.0 Baso % (Auto) 0.2 Neut # (Auto) 10.15 H Lymph # (Auto) 1.08 L Todd # (Auto) 0.95 H Eos # (Auto) 0.00 Baso # (Auto) 0.02 Immature Gran # (Auto) 0.52 H Absolute Nucleated RBC 0.50 H Nucleated RBC % (auto) 3.9 Polychromasia 1+ Sodium 135 L Potassium 3.9 Chloride 104 Carbon Dioxide 25 Anion Gap 6 BUN 26 H Creatinine 0.88 Est Cr Clr Drug Dosing 72.3 eGFR 68.92 BUN/Creatinine Ratio 29.5 H Glucose 153 H Calcium 8.0 L Ionized Calcium 1.14 Phosphorus 2.7 D Magnesium 1.9
--- NOTE | 2024-11-11 13:07 | Hospitalist Progress Note ---
Date of Service November 11, 2024 Assessment & Plan (1) Closed left hip fracture: (2) Chronic heart failure with preserved ejection fraction: (3) Atrial fibrillation with controlled ventricular response: (4) Severe pulmonary hypertension: (5) Severe mitral valve stenosis: (6) Moderate mitral regurgitation: Plan 74-year-old female from [place] visiting [place] with past medical history significant for hypertension, CHF who is status post fall with left hip fracture, s/p ORIF on 11/07/24 with postop anemia and hypotension requiring transfer to the ICU. 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 and care Improving Acute Blood Loss Anemia post op, requiring 3U pRBCs thus far CT abd/pelvis noting large hematoma Heparin previously on hold, has since been resumed Hgb stable Continue to monitor Atrial Fibrillation with RVR Has significant valvular heart disease with atrial fibrillation and increased ventricular rate Currently on IV amiodarone with plan to transition to BB once vasopressor weaned Anticoagulation previously on hold in the setting of acute blood loss anemia- heparin resumed Cardiology managing, appreciate recs Improving Closed left hip fracture Status post mechanical fall Orthopedics consulted, appreciate recs -s/p ORIF on 11/07/24 PT/OT Continue to monitor progress Significant valvular heart disease Has moderate aortic stenosis, severe mitral valve stenosis and moderate mitral regurgitation Severe pulmonary hypertension as well Echo She will likely need valvular heart surgery She will need to have follow-up appointments with Cardiac/Thoracic surgeon as an outpatient Chronic heart failure with preserved EF History of CHF No evidence of acute CHF during this admission Diet: full liquids, advance as tolerated DVT prophylaxis: heparin resumed Dispo: per pT/OT recs Admission and Anticipated Discharge Date Admission Date: November 06, 2024 Subjective Pt was seen in the AM with at bedside. Noted some nausea and hiccups Denied palpitations, chest pain or SOB Review of Systems Review of Systems: All systems reviewed & are unremarkable except as noted in Subjective Physical Exam Physical Exam: General: Alert, oriented. No acute distress Psych: Appropriate mood and affect HEENT: NC/AT CV: Irregular, murmur appreciated Resp: Breath sounds clear bilaterally, no increased effort of breathing Abdomen: Soft, nontender Extremities: LLE with noted bandages, able to move feet Results & Data Results & Data Vital Signs (Past 12 Hours) Vital Signs Temp Pulse Resp BP Pulse Ox O2 Del Method 11/11/24 08:00 Room Air 11/11/24 06:39 72 22 11/11/24 06:00 113/69 11/11/24 05:54 77 22 11/11/24 05:51 78 24 11/11/24 05:03 70 20 11/11/24 05:00 117/58 L 11/11/24 05:00 117/58 L 11/11/24 05:00 117/58 L 11/11/24 04:57 70 18 11/11/24 04:48 64 18 11/11/24 04:16 17 95 Room Air 11/11/24 04:16 36.8 C 11/11/24 04:00 78 19 11/11/24 04:00 108/64 11/11/24 04:00 69 119/50 L 11/11/24 03:42 71 19 11/11/24 03:03 67 20 11/11/24 03:00 119/66 11/11/24 03:00 119/66 11/11/24 02:48 64 21 11/11/24 02:03 63 18 11/11/24 02:01 100/56 L 11/11/24 02:01 100/56 L 11/11/24 01:57 70 19 11/11/24 01:30 69 27 H 11/11/24 01:12 74 20 11/11/24 01:10 36.6 C Diagnostic Findings Hip/Pelvis X-Ray 11/06/24 20:00 Exam(s): XR HIP + PELVIS, 1 view EXAM: XR Left Hip With Pelvis When Performed, 2 or 3 Views CLINICAL HISTORY: Reason for exam: Hip fracture. TECHNIQUE: Two or three views of the left hip with pelvis when performed. COMPARISON: No relevant prior studies available. IMPRESSION: Limited views. There is an acute intertrochanteric fracture of the proximal left femur with mild displacement. Advanced degenerative arthropathy is noted at the left hip joint. Electronically signed by: Shalom Mendez MD 11/06/24 23:11 PM Chest X-Ray 11/06/24 20:01 Exam(s): XR CXR 1 VIEW EXAM: XR Chest, 1 View CLINICAL HISTORY: Reason for exam: screening. TECHNIQUE: Frontal view of the chest. COMPARISON: No relevant prior studies available. IMPRESSION: Cardiomegaly. Diffuse edema-like infiltrates, likely related to the CHF/fluid overload. No pleural fluid or pneumothorax. 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 Fluoroscopy time: 4 minutes and 41 seconds. Number of fluoroscopic images: 6. Ka,r: 87.18 mGy. FINDINGS: Fluoroscopy was provided during open reduction and internal fixation of the intertrochanteric fracture of the left femur with trochanteric nail. Fracture alignment has improved. Distal screws are present. Linear radiodensities project over the operative bed are likely on the patient. Severe left hip osteoarthritis incidentally noted. IMPRESSION: Fluoroscopy provided during open reduction and internal fixation of the intertrochanteric fracture of the left femur. ACT 112: Negative or not required by law. Electronically signed by: Wilfredo Corbett M.D. 11/08/2024 12:08 PM Chest X-Ray 11/07/24 16:52 Chest radiograph, one view. History: Follow-up exam. No additional history provided. Comparison: None. Findings: Right-sided central venous catheter with tip projecting over the expected level of the mid superior vena cava. Prominent main pulmonary artery silhouette. Calcified atherosclerotic changes thoracic aorta. Mild obscuration descending thoracic aorta. Right costophrenic angle not included on this exam. Poorly defined left costophrenic angle. Poorly defined right heart border. Prominent pulmonary vasculature is mild diffuse increased reticular markings. Linear band density right perihilar lung field likely representing subsegmental atelectasis. Impression: 1. Uncomplicated right central venous catheter. 2. Prominent central pulmonary vasculature with nonspecific diffuse mild increased reticular markings. Vascular congestion not excluded. Inflammatory or infectious pneumonitis is not excluded. 3. Nonspecific likely bibasilar subsegmental atelectasis left greater than right. Electronically signed by Tyler Cummings 11-07-2024 6:34 PM Chest X-Ray 11/08/24 07:40 Technique: A frontal view of the chest was obtained Comparison is made to the prior examination dated 11/07/2024 Findings: There is suspected mild pulmonary edema. The heart is enlarged. No pleural effusion or pneumothorax is seen. There is an unchanged right jugular central venous line with its tip in the lower SVC No fracture is noted. No foreign body is seen Impression: Cardiomegaly and mild pulmonary edema ACT 112: Positive. There are findings on this exam that require communication between the performing entity and the patient following Patient Test Result Information Act ([place] ACT 112) guidelines. Electronically signed by Vladimir Dickson 11-08-2024 08:[address] 11/08/24 11:21 EXAM: CT Pelvis With Intravenous Contrast INDICATION: Rule out bleed TECHNIQUE: Axial computed tomography images of the pelvis with intravenous contrast. Sagittal and coronal reformatted images were created and reviewed. This CT exam was performed using one or more of the following dose reduction techniques: automated exposure control, adjustment of the mA and/or kV according to patient size, and/or use of iterative reconstruction technique. CONTRAST: 94ml of Optiray 320 was administered intravenously. COMPARISON: No relevant prior studies available. FINDINGS: Bowel: No abnormality noted. No obstruction. No mucosal thickening. Appendix: No findings to suggest acute appendicitis. Intraperitoneal space: No free air. No significant fluid collection. Bladder: No filling defects to suggest mass or large stone. No inflammation. Reproductive: No significant abnormality noted. Bones/joints: There is an acute intertrochanteric fracture of the left femur with slight displacement. Long femoral nail with proximal and distal locking hardware well-seated and intact. Severe degenerative change of the left hip noted. Soft tissues: Large irregular subcutaneous hematoma extends from the level of the upper aspect of the left gluteal musculature to the lateral skin surface inferiorly tracking within and along the gluteal musculature predominantly in the subcutaneous fat terminating posterior level of the proximal femoral shaft. Moderate amounts of associated gas present. The skin surface is not completely included. There are areas of acute hemorrhage in the lateral aspect of the hematoma (see images series 6 [id number]. Most confluent area of hematoma measures maximal transverse diameter of 10 cm, AP diameter of 8.1 cm. Maximum length is roughly 17.4 cm. There is generalized subcutaneous contusion and gas. There is gas along the gluteal musculature. There is subcutaneous edema and scattered gas along the lateral aspect of the femur. Vasculature: No abnormality noted. No lower abdominal aortic aneurysm. Lymph nodes: No abnormality noted. No enlarged lymph nodes. IMPRESSION: 1. Large predominantly subcutaneous but partially gluteal hematoma with areas of active bleeding as above. There is generalized edema of the left lower extremity. 2. Internally fixed acute fracture of the intertrochanteric left femur. ACT 112: N/A Electronically signed by Ana Paula Stock 11-08-2024 13:[address] 11/08/24 11:21 EXAM: CT Pelvis With Intravenous Contrast INDICATION: Evaluate for bleeding TECHNIQUE: Axial computed tomography images of the pelvis with intravenous contrast. Sagittal and coronal reformatted images were created and reviewed. This CT exam was performed using one or more of the following dose reduction techniques: automated exposure control, adjustment of the mA and/or kV according to patient size, and/or use of iterative reconstruction technique. CONTRAST: 94ml of Optiray 320 was administered intravenously. COMPARISON: No relevant prior studies available. FINDINGS: Bones/joints: There is an acute nondisplaced fracture of the posterior aspect of the left inferior pubic ramus. There is an acute intertrochanteric fracture of the left femur with lateral displacement. Long femoral nail with proximal locking bolt well-seated and intact. Severe primary osteoarthritic change of the left hip noted. Soft tissues: There is diffuse subcutaneous contusion and hematoma beginning at the level of the upper gluteal musculature and partially involving the anterior gluteal muscular mass. Extensive subcutaneous gas noted. Areas of acute hemorrhage noted in the lateral aspect of the hematoma (series 4 images [id number] 20). Bladder: No filling defects to suggest mass or large stone. No inflammation. IMPRESSION: 1. Acute intertrochanteric fracture of the left femur with the visualized portion of the internal fixation hardware intact and well-seated. 2. Large predominantly subcutaneous hematoma from the upper left gluteal region to the proximal posterior left femur with areas of active bleeding as above. 3. There is an acute nondisplaced fracture of the posterior aspect of the left inferior pubic ramus. ACT 112: N/A Electronically signed by Ana Paula Stock 11-08-2024 2:02 PM Abdomen/Pelvis CT 11/08/24 11:26 EXAM: CT Abdomen and Pelvis With Intravenous Contrast INDICATION: Evaluate for bleeding TECHNIQUE: Axial computed tomography images of the abdomen and pelvis with intravenous contrast. Sagittal and coronal reformatted images were created and reviewed. This CT exam was performed using one or more of the following dose reduction techniques: automated exposure control, adjustment of the mA and/or kV according to patient size, and/or use of iterative reconstruction technique. CONTRAST: 93 ml of Optiray 320 was administered intravenously. COMPARISON: No relevant prior studies available. FINDINGS: Limitations: Portions of the right subcostal chest wall and upper abdominal wall not included. Lung bases and pleural space: Heart: Cardiomegaly. Small pericardial effusion noted. Dense mitral annular calcification is noted. Mediastinum: No abnormality noted. ABDOMEN: Liver: Normal size and contour. Hypodense typical of steatosis. No mass or ductal dilation. Gallbladder and bile ducts: Cholecystectomy. No ductal dilation or stone noted. Pancreas: Homogeneous enhancement. No mass, inflammation or ductal dilation. Spleen: No significant abnormality noted. Adrenals: Mild bilateral thickening. No measurable mass. Kidneys and ureters: There is a ill-defined hypodense area in the left renal midpole measuring approximately 2.7 x 1.4 x 0.9 cm. The right kidney appears normal. Stomach and bowel: No distension or mucosal thickening. No inflammation noted. PELVIS: Appendix: No findings to suggest acute appendicitis. Bladder: Gutierrez balloon inflated in the bladder which is collapsed and cannot be assessed. Reproductive: No abnormalities noted. ABDOMEN and PELVIS: Intraperitoneal space: No free air. No significant fluid collection. Bones/joints: Acute internally fixed left intertrochanteric femoral fracture noted. Degenerative changes present throughout the spine. There is moderate to severe degenerative change of the hips left greater than right. Soft tissues: There is a large hematoma and gas collection extending from the upper aspect of the left gluteal musculature tapering to the level of the proximal femur measuring maximal transverse dimension at the most confluent point of 11.9 cm in AP diameter of 7.3 cm. There is a small focus of acute hemorrhage in the lateral aspect of the hematoma at the level of the supra-acetabular iliac bone series 3 image 257/367. There is generalized surrounding subcutaneous contusion. Vasculature: Atherosclerotic calcification of the aorta and branches. No aneurysm. Lymph nodes: No pathologically enlarged lymph nodes. IMPRESSION: 1. Large subcutaneous hematoma extending from the upper left gluteal region to the proximal posterior left femur as above with small focus of acute hemorrhage in the lateral aspect of the hematoma. 2. Small bilateral pleural effusions and dependent atelectasis. 3. Ill-defined hypodensity left kidney could be a mass or a hyperdense cyst. Sonographic assessment is recommended when able. ACT 112: N/A Electronically signed by Ana Paula Stock 11-08-2024 13:54 PM
--- NOTE | 2024-11-11 14:34 | Electrocardiogram Report ---
Test Reason : Blood Pressure : */* mmHG Vent. Rate : 89 BPM Atrial Rate : * BPM P-R Int : * ms QRS Dur : 120 ms QT Int : 400 ms P-R-T Axes : * 191 102 degrees QTcB Int : 486 ms Atrial fibrillation Incomplete right bundle branch block Low voltage QRS Abnormal ECG When compared with ECG of 08-Nov-2024 09:50, QRS axis Shifted left Confirmed by Cedric Hameed ([id number]) on 11/11/2024 2:34:42 PM Referred By: REFERRED SELF Confirmed By: Cedric Hameed
[2024-11-11 18:31] LABS: ANTI-Xa, UFH(UnfractionatedHep 0.42 IU/ml (0.3-0.7)
[2024-11-12 04:52] LABS: Hematocrit (blood only) 22.6 % (37.0-47.0); Hemoglobin 7.7 g/dl (12.0-16.0); Mean Corpuscular Hemoglobin 30.2 pg (25.0-34.0); Mean Corpuscular Hgb Conc 34.1 g/dL (32.0-36.0); Mean Corpuscular Volume 88.6 fL (80.0-100.0); Mean Platelet Volume 10.5 fL (9.4-12.4); Nucleated RBC # (auto) 0.64 K/uL (0.00-0.12); Nucleated RBC % (auto) 4.8 %; Platelet Count 157 K/uL (130-400); RDW Standard Deviation 48.1 fL (36.4-46.3); Red Blood Count 2.55 M/uL (4.20-5.40); White Blood Count 13.26 K/ul (4.8-10.8)
[2024-11-12 05:35] LABS: Basophils # (auto) 0.07 K/uL (0.00-0.20); Basophils % (auto) 0.5 %; Immature Granulocytes # (auto) 0.91 K/uL (0.01-0.20); Immature Granulocytes % (auto) 6.9 %; Lymphocytes # (auto) 1.69 K/uL (1.20-3.40); Lymphocytes % (auto) 12.7 %; Monocytes # (auto) 1.23 K/uL (0.11-0.59); Monocytes % (auto) 9.3 %; Neutrophils # (auto) 9.36 K/uL (1.40-6.50); Neutrophils % (auto) 70.6 %; Polychromasia 2+
[2024-11-12 06:06] LABS: BUN Creatinine Ratio 30.6 (10-20); Calcium 7.6 mg/dl (8.6-10.3); Creatinine Clr Calc Pharmacy 76.1 ml/min; Magnesium 1.8 mg/dl (1.7-2.4); Phosphorus 2.8 mg/dl (2.5-4.9); Potassium 3.5 mmol/L (3.5-5.1)
--- NOTE | 2024-11-12 07:59 | Critical Care Progress Note ---
Date of Service November 12, 2024 Assessment & Plan (1) Atrial fibrillation: (2) Closed fracture of left hip: (3) Chronic heart failure with preserved ejection fraction: (4) Severe pulmonary hypertension: (5) Atrial fibrillation with controlled ventricular response: (6) Severe mitral valve stenosis: (7) Shock circulatory: (8) Ex-smoker: (9) Aortic stenosis: (10) Acute blood loss anemia: Plan Reason Critically Ill: 74-year-old female with a history of severe mitral stenosis, mild aortic stenosis and moderate aortic stenosis admitted status post fall with hip fracture. Course complicated by significant hypotension requiring 2 vasopressor agents and atrial fibrillation with rapid ventricular response. 24-hour events: Intermittently on and off pressors at low-dose. Heparin restarted. Hemoglobin stable this morning. Recommendations: Neuro -no current issues. Continue pain management with as needed Percocet. Continue PT OT with increasing activity and mobilization as tolerated. Cardiac -hypotension improving. Continue midodrine 10 mg 3 times daily. Continue to wean norepinephrine as tolerated. If A-fib becomes problematic, could consider transition to Robbie-Synephrine. Continue with Solu-Cortef and Florinef. Would like to diurese as soon as hemodynamics allow. Would like to start beta-blockers as soon as hemodynamically feasible. Continue amiodarone under the direction of cardiology. Continue heparin infusion and follow blood counts. Will need to transition to DOAC at some point. Significant pulmonary hypertension on echo likely secondary to valvular heart disease. Follow-up echo recommended in the outpatient setting in 3-4 months. Respiratory -weaning oxygen as tolerated. Continue incentive spirometry. No evidence of acute bronchospasm. Out of bed to chair as tolerated GI -advance to regular diet as tolerated RENAL/LYTES -ICU electrolyte replacement protocol. ENDO - currently on stress dose steroids for relative adrenal insufficiency. Continue Florinef. Wean once hemodynamics stabilize. Glycemic control per protocol HEME -postoperative hematoma. Patient's received 3 units packed cells. Hemoglobin stable this morning. Thrombocytopenia resolved ID -following clinically. Off antibiotics Musculoskeletal -status post repair left hip fracture. Mobilization as tolerated by hemodynamics. --Prophylaxis VTE: IPC. On therapeutic anticoagulation for valvular A-fib GI: Pantoprazole Lines: Right IJ, Gutierrez Diet: Regular Total of 40 minutes was spent reviewing case, coordinating care with bedside critical care nurse and and other specialists, updating family, and and documentation. Admission and Anticipated Discharge Date Admission Date: November 06, 2024 Subjective Patient seen and examined. EMR reviewed. Discussed with bedside critical care nurse as well as with overnight critical care ZAID and on multidisciplinary r ounds. The patient reports that she is feeling much better today. She tolerated getting out of bed to chair yesterday. She has had a bowel movement. She is tolerating a diet. She denies any chest pain or shortness of breath. No nausea or vomiting. Her surgical pain is reasonably well-controlled currently. She has been intermittently on and off pressors overnight. Review of Systems Review of Systems: All systems reviewed & are unremarkable except as noted in Subjective Physical Exam Constitutional: well developed, well nourished and + obese Neck: trachea midline, no thyromegaly Respiratory: no respiratory distress Auscultation: lungs clear to auscultation bilaterally and + diminished lung sounds ( at the bases) Cardiovascular: Rate/Rhythm: + irregularly irregular; not tachycardic Heart Sounds: normal S1, normal S2 and + murmur Extremities: + edema (Trace edema bilaterally) Gastrointestinal (Abdomen): Inspection/Auscultation: normal bowel sounds; abdomen not distended Percussion/Palpation: abdomen soft; abdomen nontender Neurologic: normal touch/pain/proprioception Psychiatric: A+Ox3, euthymic affect Lymphatic: no cervical or axillary lymphadenopathy Results & Data Results & Data Vital Signs (Past 12 Hours) Vital Signs Temp Pulse Resp BP Pulse Ox Pulse Ox O2 Del Method 11/12/24 06:31 109/64 11/12/24 06:27 66 17 11/12/24 06:15 109/64 11/12/24 06:15 109/64 11/12/24 06:03 90 17 11/12/24 06:01 87/72 L 11/12/24 06:01 87/72 L 11/12/24 06:01 87/72 L 11/12/24 06:00 86 18 11/12/24 05:45 113/75 11/12/24 05:45 113/75 11/12/24 05:42 64 20 11/12/24 05:30 68 22 11/12/24 05:30 113/62 11/12/24 05:15 97/69 L 11/12/24 05:15 97/69 L 11/12/24 05:03 59 L 17 11/12/24 05:00 66 27 H 11/12/24 05:00 116/63 11/12/24 05:00 116/63 11/12/24 04:45 111/59 L 11/12/24 04:45 111/59 L 11/12/24 04:36 64 17 11/12/24 04:29 36.3 C L 17 93 Room Air 11/12/24 04:15 107/61 11/12/24 04:15 107/61 11/12/24 04:03 66 23 11/12/24 04:00 110/65 11/12/24 03:45 113/67 11/12/24 03:45 113/67 11/12/24 03:33 52 L 16 11/12/24 03:30 106/64 11/12/24 03:30 106/64 11/12/24 03:30 65 16 11/12/24 03:00 67 17 11/12/24 03:00 109/69 11/12/24 03:00 109/69 11/12/24 03:00 109/69 11/12/24 02:45 106/64 11/12/24 02:45 106/64 11/12/24 02:39 69 25 H 11/12/24 02:30 107/66 11/12/24 02:15 105/68 11/12/24 02:15 105/68 11/12/24 02:00 109/63 11/12/24 01:54 65 16 11/12/24 01:45 68 19 11/12/24 01:45 115/65 11/12/24 01:45 115/65 11/12/24 01:45 115/65 11/12/24 01:45 115/65 11/12/24 01:45 115/65 11/12/24 01:39 72 18 11/12/24 01:30 100/64 11/12/24 01:15 101/60 11/12/24 01:06 67 19 11/12/24 01:00 106/66 11/12/24 01:00 69 18 11/12/24 01:00 65 11/12/24 00:30 92/59 L 11/12/24 00:00 101/59 L 11/11/24 23:45 69 16 11/11/24 23:30 102/60 05/27/25 23:30 102/60 11/11/24 23:21 68 29 H 11/11/24 23:18 71 17 11/11/24 23:15 97/64 L 11/11/24 23:15 97/64 L 11/11/24 23:11 36.8 C 18 92 Room Air 11/11/24 23:00 116/70 11/11/24 23:00 92 11/11/24 22:51 60 16 11/11/24 22:45 107/63 11/11/24 22:45 107/63 11/11/24 22:45 107/63 11/11/24 22:39 63 20 11/11/24 22:33 59 L 17 11/11/24 22:30 102/69 11/11/24 22:21 65 16 11/11/24 22:03 65 16 11/11/24 22:00 106/65 11/11/24 22:00 106/65 11/11/24 22:00 106/65 11/11/24 21:57 75 19 11/11/24 21:50 Room Air 11/11/24 21:48 69 16 11/11/24 21:45 110/60 11/11/24 21:45 110/60 11/11/24 21:30 91/63 L 11/11/24 21:30 91/63 L 11/11/24 21:27 87 23 11/11/24 21:15 85/53 L 11/11/24 21:15 85/53 L 11/11/24 21:09 88 17 11/11/24 21:00 85 17 11/11/24 21:00 88/50 L 11/11/24 21:00 88/50 L 11/11/24 21:00 88/50 L 11/11/24 21:00 88/50 L 11/11/24 21:00 88/50 L 11/11/24 20:45 89/53 L 11/11/24 20:45 88 21 11/11/24 20:42 92 H 19 11/11/24 20:31 91/61 L 11/11/24 20:27 97 H 26 H 11/11/24 20:15 92/58 L 11/11/24 20:15 36.7 C 18 93 Room Air 11/11/24 20:09 91 H 23 11/11/24 20:00 105 H 17 11/11/24 20:00 79/62 L O2 Del Method 11/12/24 06:31 11/12/24 06:27 11/12/24 06:15 11/12/24 06:15 11/12/24 06:03 11/12/24 06:01 11/12/24 06:01 11/12/24 06:01 11/12/24 06:00 11/12/24 05:45 11/12/24 05:45 11/12/24 05:42 11/12/24 05:30 11/12/24 05:30 11/12/24 05:15 11/12/24 05:15 11/12/24 05:03 11/12/24 05:00 11/12/24 05:00 11/12/24 05:00 11/12/24 04:45 11/12/24 04:45 11/12/24 04:36 11/12/24 04:29 11/12/24 04:15 11/12/24 04:15 11/12/24 04:03 11/12/24 04:00 11/12/24 03:45 11/12/24 03:45 11/12/24 03:33 11/12/24 03:30 11/12/24 03:30 11/12/24 03:30 11/12/24 03:00 11/12/24 03:00 11/12/24 03:00 11/12/24 03:00 11/12/24 02:45 11/12/24 02:45 11/12/24 02:39 11/12/24 02:30 11/12/24 02:15 11/12/24 02:15 11/12/24 02:00 11/12/24 01:54 11/12/24 01:45 11/12/24 01:45 11/12/24 01:45 11/12/24 01:45 11/12/24 01:45 11/12/24 01:45 11/12/24 01:39 11/12/24 01:30 11/12/24 01:15 11/12/24 01:06 11/12/24 01:00 11/12/24 01:00 11/12/24 01:00 11/12/24 00:30 11/12/24 00:00 11/11/24 23:45 11/11/24 23:30 11/11/24 23:30 11/11/24 23:21 11/11/24 23:18 11/11/24 23:15 11/11/24 23:15 11/11/24 23:11 11/11/24 23:00 11/11/24 23:00 Room Air 11/11/24 22:51 11/11/24 22:45 11/11/24 22:45 11/11/24 22:45 11/11/24 22:39 11/11/24 22:33 11/11/24 22:30 11/11/24 22:21 11/11/24 22:03 11/11/24 22:00 11/11/24 22:00 11/11/24 22:00 11/11/24 21:57 11/11/24 21:50 11/11/24 21:48 11/11/24 21:45 11/11/24 21:45 11/11/24 21:30 11/11/24 21:30 11/11/24 21:27 11/11/24 21:15 11/11/24 21:15 11/11/24 21:09 11/11/24 21:00 11/11/24 21:00 11/11/24 21:00 11/11/24 21:00 11/11/24 21:00 11/11/24 21:00 11/11/24 20:45 11/11/24 20:45 11/11/24 20:42 11/11/24 20:31 11/11/24 20:27 11/11/24 20:15 11/11/24 20:15 11/11/24 20:09 11/11/24 20:00 11/11/24 20:00 Critical Care Results & Data Vital Signs (Past 12 Hours) Vital Signs Temp Pulse Resp BP Pulse Ox Pulse Ox O2 Del Method 11/12/24 06:31 109/64 11/12/24 06:27 66 17 11/12/24 06:15 109/64 11/12/24 06:15 109/64 11/12/24 06:03 90 17 11/12/24 06:01 87/72 L 11/12/24 06:01 87/72 L 11/12/24 06:01 87/72 L 11/12/24 06:00 86 18 11/12/24 05:45 113/75 11/12/24 05:45 113/75 11/12/24 05:42 64 20 11/12/24 05:30 68 22 11/12/24 05:30 113/62 11/12/24 05:15 97/69 L 11/12/24 05:15 97/69 L 11/12/24 05:03 59 L 17 11/12/24 05:00 66 27 H 11/12/24 05:00 116/63 11/12/24 05:00 116/63 11/12/24 04:45 111/59 L 11/12/24 04:45 111/59 L 11/12/24 04:36 64 17 11/12/24 04:29 36.3 C L 17 93 Room Air 11/12/24 04:15 107/61 11/12/24 04:15 107/61 11/12/24 04:03 66 23 11/12/24 04:00 110/65 11/12/24 03:45 113/67 11/12/24 03:45 113/67 11/12/24 03:33 52 L 16 11/12/24 03:30 106/64 11/12/24 03:30 106/64 11/12/24 03:30 65 16 11/12/24 03:00 67 17 11/12/24 03:00 109/69 11/12/24 03:00 109/69 11/12/24 03:00 109/69 11/12/24 02:45 106/64 11/12/24 02:45 106/64 11/12/24 02:39 69 25 H 11/12/24 02:30 107/66 11/12/24 02:15 105/68 11/12/24 02:15 105/68 11/12/24 02:00 109/63 11/12/24 01:54 65 16 11/12/24 01:45 68 19 11/12/24 01:45 115/65 11/12/24 01:45 115/65 11/12/24 01:45 115/65 11/12/24 01:45 115/65 11/12/24 01:45 115/65 11/12/24 01:39 72 18 11/12/24 01:30 100/64 11/12/24 01:15 101/60 11/12/24 01:06 67 19 11/12/24 01:00 106/66 11/12/24 01:00 69 18 11/12/24 01:00 65 11/12/24 00:30 92/59 L 11/12/24 00:00 101/59 L 11/11/24 23:45 69 16 11/11/24 23:30 102/60 11/11/24 23:30 102/60 11/11/24 23:21 68 29 H 11/11/24 23:18 71 17 11/11/24 23:15 97/64 L 11/11/24 23:15 97/64 L 11/11/24 23:11 36.8 C 18 92 Room Air 11/11/24 23:00 116/70 11/11/24 23:00 92 11/11/24 22:51 60 16 11/11/24 22:45 107/63 11/11/24 22:45 107/63 11/11/24 22:45 107/63 11/11/24 22:39 63 20 11/11/24 22:33 59 L 17 11/11/24 22:30 102/69 11/11/24 22:21 65 16 11/11/24 22:03 65 16 11/11/24 22:00 106/65 11/11/24 22:00 106/65 11/11/24 22:00 106/65 11/11/24 21:57 75 19 11/11/24 21:50 Room Air 11/11/24 21:48 69 16 11/11/24 21:45 110/60 11/11/24 21:45 110/60 11/11/24 21:30 91/63 L 11/11/24 21:30 91/63 L 11/11/24 21:27 87 23 11/11/24 21:15 85/53 L 11/11/24 21:15 85/53 L 11/11/24 21:09 88 17 11/11/24 21:00 85 17 11/11/24 21:00 88/50 L 11/11/24 21:00 88/50 L 11/11/24 21:00 88/50 L 11/11/24 21:00 88/50 L 11/11/24 21:00 88/50 L 11/11/24 20:45 89/53 L 11/11/24 20:45 88 21 11/11/24 20:42 92 H 19 11/11/24 20:31 91/61 L 11/11/24 20:27 97 H 26 H 11/11/24 20:15 92/58 L 11/11/24 20:15 36.7 C 18 93 Room Air 11/11/24 20:09 91 H 23 11/11/24 20:00 105 H 17 11/11/24 20:00 79/62 L O2 Del Method 11/12/24 06:31 11/12/24 06:27 11/12/24 06:15 11/12/24 06:15 11/12/24 06:03 11/12/24 06:01 11/12/24 06:01 11/12/24 06:01 11/12/24 06:00 11/12/24 05:45 11/12/24 05:45 11/12/24 05:42 11/12/24 05:30 11/12/24 05:30 11/12/24 05:15 11/12/24 05:15 11/12/24 05:03 11/12/24 05:00 11/12/24 05:00 11/12/24 05:00 11/12/24 04:45 11/12/24 04:45 11/12/24 04:36 11/12/24 04:29 11/12/24 04:15 11/12/24 04:15 11/12/24 04:03 11/12/24 04:00 11/12/24 03:45 11/12/24 03:45 11/12/24 03:33 11/12/24 03:30 11/12/24 03:30 11/12/24 03:30 11/12/24 03:00 11/12/24 03:00 11/12/24 03:00 11/12/24 03:00 11/12/24 02:45 11/12/24 02:45 11/12/24 02:39 11/12/24 02:30 11/12/24 02:15 11/12/24 02:15 11/12/24 02:00 11/12/24 01:54 11/12/24 01:45 11/12/24 01:45 11/12/24 01:45 11/12/24 01:45 11/12/24 01:45 11/12/24 01:45 11/12/24 01:39 11/12/24 01:30 11/12/24 01:15 11/12/24 01:06 11/12/24 01:00 11/12/24 01:00 11/12/24 01:00 11/12/24 00:30 11/12/24 00:00 11/11/24 23:45 11/11/24 23:30 11/11/24 23:30 11/11/24 23:21 11/11/24 23:18 11/11/24 23:15 11/11/24 23:15 11/11/24 23:11 11/11/24 23:00 11/11/24 23:00 Room Air 11/11/24 22:51 11/11/24 22:45 11/11/24 22:45 11/11/24 22:45 11/11/24 22:39 11/11/24 22:33 11/11/24 22:30 11/11/24 22:21 11/11/24 22:03 11/11/24 22:00 11/11/24 22:00 11/11/24 22:00 11/11/24 21:57 11/11/24 21:50 11/11/24 21:48 11/11/24 21:45 11/11/24 21:45 11/11/24 21:30 11/11/24 21:30 11/11/24 21:27 11/11/24 21:15 11/11/24 21:15 11/11/24 21:09 11/11/24 21:00 11/11/24 21:00 11/11/24 21:00 11/11/24 21:00 11/11/24 21:00 11/11/24 21:00 11/11/24 20:45 11/11/24 20:45 11/11/24 20:42 11/11/24 20:31 11/11/24 20:27 11/11/24 20:15 11/11/24 20:15 11/11/24 20:09 11/11/24 20:00 11/11/24 20:00 Lab & Micro Results (Past 24 Hours) RBC 2.55 M/uL (4.20-5.40) L 11/12/24 WBC 13.26 K/ul (4.8-10.8) H 11/12/24 Hgb 7.7 g/dl (12.0-16.0) L 11/12/24 Hct 22.6 % (37.0-47.0) L 11/12/24 MCV 88.6 fL (80.0-100.0) 11/12/24 MCH 30.2 pg (25.0-34.0) 11/12/24 MCHC 34.1 g/dL (32.0-36.0) 11/12/24 RDW Standard Deviation 48.1 fL (36.4-46.3) H 11/12/24 RDW Coefficient of Variation 16.0 % (11.5-14.5) H 11/12/24 Plt Count 157 K/uL (130-400) 11/12/24 MPV 10.5 fL (9.4-12.4) 11/12/24 Nucleated Red Blood Cells % (auto) 4.8 % 11/12 Nucleated RBC Absolute Count (auto) 0.64 K/uL (0.00-0.12) H 11/12/24 Neutrophils (%) (Auto) 70.6 % 11/12/24 Lymphocytes (%) (Auto) 12.7 % 11/12/24 Monocytes # (Auto) 1.23 K/uL (0.11-0.59) H 11/12/24 Eosinophils # (Auto) 0.00 K/uL (0.00-0.50) 11/12/24 Immature Granulocyte % (Auto) 6.9 % 11/12/24 Neutrophils # (Auto) 9.36 K/uL (1.40-6.50) H 11/12/24 Lymphocytes # (Auto) 1.69 K/uL (1.20-3.40) 11/12/24 Monocytes # (Auto) 1.23 K/uL (0.11-0.59) H 11/12/24 Eosinophils # (Auto) 0.00 K/uL (0.00-0.50) 11/12/24 Basophils # (Auto) 0.07 K/uL (0.00-0.20) 11/12/24 Immature Granulocyte # (Auto) 0.91 K/uL (0.01-0.20) H 11/12 Polychromasia 2+ 11/12/24 Na 135 mmol/L (136-145) L 11/12/24 K 3.5 mmol/L (3.5-5.1) 11/12/24 Cl 102 mmol/L (98-107) 11/12/24 CO2 26 mmol/L (21-32) 11/12/24 Anion Gap 7 (3-11) 11/12/24 BUN 26 mg/dl (6-23) H 11/12/24 Creatinine 0.85 mg/dl (0.6-1.2) 11/12/24 BUN/Creatinine Ratio 30.6 (10-20) H 11/12/24 Glu 134 mg/dl (70-99(Fasting)) H 11/12/24 Ca 7.6 mg/dl (8.6-10.3) L 11/12/24 Phosphorus Level 2.8 mg/dl (2.5-4.9) 11/12/24 Albumin 2.9 gm/dl (3.4-5.0) L 11/12/24 Mg 1.8 mg/dl (1.7-2.4) 11/12/24 04:25 Calcium Level 7.6 mg/dl (8.6-10.3) L 11/12/24 04:25 I & O Totals 24 Hours 11/11/24 11/12/24 11/13/24 06:59 06:59 06:59 Intake Total 1146.268 / 1146.268 999.884 / 999.884 Output Total 1205 / 1205 1396 / 1396 Balance -58.732 / -58.732 -396.116 / -396.116 Cumulative 11/06/24 19:30 thru 11/12/24 06:47 Intake Total 9706.803 Output Total 5576 Balance 4130.803 RT Ventilator Mngmt (Last Documented) Ventilator Ordered Settings Respiratory Rate 17 11/12/24 06:27 Ventilator - PT Measurements Respiratory Rate 17 Coding Level of Care Code 46393 SUB INP/OBS CARE MIN Diagnoses Atrial fibrillation I48.91 Atrial fibrillation type: unspecified Closed fracture of left hip S72.002A Encounter type: initial encounter Chronic heart failure with preserved ejection fraction I50.32 Severe pulmonary hypertension I27.20 Atrial fibrillation with controlled ventricular response I48.91 Severe mitral valve stenosis I05.0 Shock circulatory R57.9 Ex-smoker Z87.891 Aortic stenosis I35.0 Acute blood loss anemia D62 (1) Atrial fibrillation Atrial fibrillation type: unspecified Qualified Code(s): I48.91 - Unspecified atrial fibrillation (2) Closed fracture of left hip Encounter type: initial encounter Qualified Code(s): S72.002A - Fracture of unspecified part of neck of left femur, initial encounter for closed fracture
[2024-11-12] MEDS: MAGNESIUM SULFATE / D5W 1 GM/100 ML BAG IV SCH (08:16)
[2024-11-12] MEDS: POTASSIUM CHLORIDE CRTAB 20 MEQ TABCR PO STA (08:16)
[2024-11-12] MEDS: CALCIUM GLUCONATE 1,000 MG/60 ML BAG IV SCH (08:17)
[2024-11-12] MEDS: CALCIUM CARBONATE 1,250 MG/5 ML UDC PO SCH (09:09)
--- NOTE | 2024-11-12 12:57 | Cardiology Progress Note ---
Date of Service November 12, 2024 Assessment & Plan (1) Aortic stenosis: (2) Atrial fibrillation with controlled ventricular response: (3) Severe pulmonary hypertension: (4) Chronic heart failure with preserved ejection fraction: (5) Severe mitral insufficiency: Plan Assessment / Plan: Medically complex 74-year-old female who resided in [place] presents with mechanical fall and acute left hip fracture. She was deemed high perioperative cardiovascular risk due to severe mitral valve stenosis (mean diastolic gradient of 10-14 with ventricular rate of 84 bpm) with severe pulmonary hypertension (PASP estimated to be 71 mm Hg). Moderate mitral regurgitation and mild to moderate aortic valve stenosis also noted. LV systolic function preserved (LVEF 60-65%) without regional wall motion abnormality. Post operatively, patient developed hypotension and Hgb trended zackery to 6.2 g/dl, having been 15.8 g/dl on presentation. Heparin was discontinued. Patient required support with vasopressin and norepiniphrine and has received transfustion of 3 units of PBRCs, with Hgb 7.9 g/dl on 11/10/24. CT left femur 11/08/24 revealed large subcutaneous and gluteal hematoma 1. Shock secondary to acute blood loss and Valvular disease 2. Atrial fibrillation with RVR * rate controlled with amiodarone * the use of other AV emil blockers is limited due to hypotension * anticoagulation to be held until surgical site hematoma and hemoglobin are stable * when BP improves start on metoprolol 11/11/2024 Patient hemodynamically improved after transfusion though hemoglobin still below 8. Heart rates much better controlled with combination of IV amiodarone, volume, blood resuscitation. Duration of atrial fibrillation uncertain but newly observed Issues to be addressed as follows 1. Atrial fibrillation with rapid ventricular response: Current rates controlled/improved with IV amiodarone. Ultimate goal would be discontinue this drug given low likelihood of return to sinus rhythm and possible increased risk for thromboembolic event if spontaneous conversion given uncertain duration of atrial fibrillation. Goal be to begin oral metoprolol as pressors weaned. Will require anticoagulation with heparin to warfarin once anemia concerns resolved 2. Valvular heart disease: Mixed aortic and mitral valve stenosis. Will reassess now heart rates controlled. May see improvement in mitral valve gradients now that rate is slowed, anemia being addressed Ultimately will require anticoagulation 3. Mixed etiology acute postoperative shock secondary to valvular disease as well as atrial fibrillation with rapid response, acute blood loss/anemia. Patient without a current complaint and improving hemodynamically plan as outlined above 3. Mixed etiology acute postoperative shock secondary to valvular disease as well as atrial fibrillation with rapid response, acute blood loss/anemia. 11/12/2024 1. Atrial fibrillation with rapid response improving with IV amiodarone we will transition this to oral but ultimate goal will be switched to beta-jose as BP Will require chronic anticoagulation 2. Mixed valvular heart disease with aortic stenosis and mild mitral stenosis with severe mitral insufficiency 3. Postoperative anemia 4. Mixed etiology acute postoperative shock secondary to valvular disease as well as atrial fibrillation with rapid response, acute blood loss/anemia. Admission and Anticipated Discharge Date Admission Date: November 06, 2024 Subjective Patient seen and examined, chart, telemetry reviewed. Patient sitting at side of bed, Subjectively improved. Atrial fibrillation still with mildly elevated heart rates. Remains on IV amiodarone. Pressors being weaned Review of Systems Review of Systems: All systems reviewed & are unremarkable except as noted in Subjective Physical Exam Constitutional: no acute distress and not obese Eyes: PERRL, conjunctivae normal, anicteric sclerae Neck: trachea midline, no thyromegaly Respiratory: normal respiratory effort, lungs clear to auscultation Cardiovascular: Rate/Rhythm: + irregularly irregular Heart Sounds: + murmur (Grade 3/6 systolic) Vessels: no JVD Extremities: no edema Gastrointestinal (Abdomen): normal bowel sounds, soft, nontender, no hepatosp lenomegaly Results & Data Vital Signs (Past 12 Hours) Vital Signs Temp Pulse Resp BP Pulse Ox O2 Del Method 11/12/24 12:45 96/60 L 11/12/24 12:45 96/60 L 11/12/24 12:40 36.7 C 11/12/24 12:39 101 H 17 11/12/24 12:38 89/59 L 11/12/24 12:36 98 H 19 11/12/24 12:31 76/51 L 11/12/24 12:31 76/51 L 11/12/24 12:31 76/51 L 11/12/24 12:30 96 H 24 11/12/24 12:16 114/69 11/12/24 12:12 73 22 11/12/24 12:06 74 23 11/12/24 12:05 119/73 11/12/24 12:05 119/73 11/12/24 12:05 119/73 11/12/24 11:30 98/61 L 11/12/24 11:27 97 H 22 11/12/24 11:00 100 H 26 H 11/12/24 11:00 112/73 11/12/24 11:00 112/73 11/12/24 11:00 112/73 11/12/24 11:00 112/73 11/12/24 10:45 107/65 11/12/24 10:45 107/65 11/12/24 10:30 86/69 L 11/12/24 10:30 86/69 L 11/12/24 10:21 102 H 20 11/12/24 10:15 86 24 11/12/24 10:15 119/71 11/12/24 10:15 119/71 11/12/24 10:12 91 H 26 H 11/12/24 10:05 92/62 L 11/12/24 09:48 78 19 94 11/12/24 09:45 108/56 L 11/12/24 09:45 108/56 L 11/12/24 09:45 108/56 L 11/12/24 09:33 72 19 93 11/12/24 09:30 113/62 11/12/24 09:30 113/62 11/12/24 09:30 113/62 11/12/24 09:30 75 21 93 11/12/24 09:18 78 22 94 11/12/24 09:16 110/66 11/12/24 09:16 110/66 11/12/24 09:16 110/66 11/12/24 09:12 81 25 H 93 11/12/24 09:03 75 19 92 11/12/24 09:00 114/66 11/12/24 08:57 72 18 93 11/12/24 08:48 72 19 95 11/12/24 08:45 117/72 11/12/24 08:39 71 18 93 11/12/24 08:30 115/61 11/12/24 08:27 68 29 H 94 11/12/24 08:21 77 21 93 11/12/24 08:03 96 H 21 96 11/12/24 08:00 92/64 L 11/12/24 07:59 Room Air 11/12/24 07:57 79 22 11/12/24 07:54 81 21 05/28/25 07:50 36.6 C 11/12/24 07:42 85 19 11/12/24 07:30 111/67 11/12/24 07:30 111/67 11/12/24 07:30 111/67 11/12/24 07:15 118/71 11/12/24 07:15 118/71 11/12/24 07:06 76 27 H 11/12/24 07:00 70 28 H 11/12/24 07:00 105/60 11/12/24 07:00 105/60 11/12/24 06:31 109/64 11/12/24 06:27 66 17 11/12/24 06:15 109/64 11/12/24 06:15 109/64 11/12/24 06:03 90 17 11/12/24 06:01 87/72 L 11/12/24 06:01 87/72 L 11/12/24 06:01 87/72 L 11/12/24 06:00 86 18 11/12/24 05:45 113/75 11/12/24 05:45 113/75 11/12/24 05:42 64 20 11/12/24 05:30 68 22 11/12/24 05:30 113/62 11/12/24 05:15 97/69 L 11/12/24 05:15 97/69 L 11/12/24 05:03 59 L 17 11/12/24 05:00 66 27 H 11/12/24 05:00 116/63 11/12/24 05:00 116/63 11/12/24 04:45 111/59 L 11/12/24 04:45 111/59 L 11/12/24 04:36 64 17 11/12/24 04:29 36.3 C L 17 93 Room Air 11/12/24 04:15 107/61 11/12/24 04:15 107/61 11/12/24 04:03 66 23 11/12/24 04:00 110/65 11/12/24 03:45 113/67 11/12/24 03:45 113/67 11/12/24 03:33 52 L 16 11/12/24 03:30 106/64 11/12/24 03:30 106/64 11/12/24 03:30 65 16 05/28/25 03:00 67 17 11/12/24 03:00 109/69 11/12/24 03:00 109/69 11/12/24 03:00 109/69 11/12/24 02:45 106/64 11/12/24 02:45 106/64 11/12/24 02:39 69 25 H 11/12/24 02:30 107/66 11/12/24 02:15 105/68 11/12/24 02:15 105/68 11/12/24 02:00 109/63 11/12/24 01:54 65 16 11/12/24 01:45 68 19 11/12/24 01:45 115/65 11/12/24 01:45 115/65 11/12/24 01:45 115/65 11/12/24 01:45 115/65 11/12/24 01:45 115/65 11/12/24 01:39 72 18 11/12/24 01:30 100/64 11/12/24 01:15 101/60 11/12/24 01:06 67 19 11/12/24 01:00 106/11/12/24 01:00 69 18 11/12/24 01:00 65 Laboratory Results Laboratory Results - last 24 hr 11/11/24 11/12/24 11/12/24 17:46 04:22 04:23 WBC 13.26 H RBC 2.55 L Hgb 7.7 L Hct 22.6 L MCV 88.6 MCH 30.2 MCHC 34.1 RDW Std Deviation 48.1 H RDW Coeff of Gifty 16.0 H Plt Count 157 MPV 10.5 Immature Gran % (Auto) 6.9 Neut % (Auto) 70.6 Lymph % (Auto) 12.7 Bacon % (Auto) 9.3 Eos % (Auto) 0.0 Baso % (Auto) 0.5 Neut # (Auto) 9.36 H Lymph # (Auto) 1.69 Bacon # (Auto) 1.23 H Eos # (Auto) 0.00 Baso # (Auto) 0.07 Immature Gran # (Auto) 0.91 H Absolute Nucleated RBC 0.64 H Nucleated RBC % (auto) 4.8 Polychromasia 2+ Heparin Anti-Xa, Unfract 0.42 0.70 Sodium Potassium Chloride Carbon Dioxide Anion Gap BUN Creatinine Est Cr Clr Drug Dosing eGFR BUN/Creatinine Ratio Glucose Calcium Phosphorus Magnesium Albumin 11/12/24 04:25 WBC RBC Hgb Hct MCV MCH MCHC RDW Std Deviation RDW Coeff of Gifty Plt Count MPV Immature Gran % (Auto) Neut % (Auto) Lymph % (Auto) Bacon % (Auto) Eos % (Auto) Baso % (Auto) Neut # (Auto) Lymph # (Auto) Bacon # (Auto) Eos # (Auto) Baso # (Auto) Immature Gran # (Auto) Absolute Nucleated RBC Nucleated RBC % (auto) Polychromasia Heparin Anti-Xa, Unfract Sodium 135 L Potassium 3.5 Chloride 102 Carbon Dioxide 26 Anion Gap 7 BUN 26 H Creatinine 0.85 Est Cr Clr Drug Dosing 76.1 eGFR 71.85 BUN/Creatinine Ratio 30.6 H Glucose 134 H Calcium 7.6 L Phosphorus 2.8 Magnesium 1.8 Albumin 2.9 L
--- NOTE | 2024-11-12 13:06 | Hospitalist Progress Note ---
Date of Service November 12, 2024 Assessment & Plan (1) Closed left hip fracture: (2) Chronic heart failure with preserved ejection fraction: (3) Atrial fibrillation with controlled ventricular response: (4) Severe pulmonary hypertension: (5) Severe mitral valve stenosis: (6) Moderate mitral regurgitation: Plan 74-year-old female from [place] visiting [place] with past medical history significant for hypertension, CHF who is status post fall with left hip fracture, s/p ORIF on 11/07/24 with postop anemia and hypotension requiring transfer to the ICU. 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 Improving Acute Blood Loss Anemia post op, requiring 3U pRBCs thus far CT abd/pelvis noting large hematoma Heparin previously on hold, has since been resumed Hgb stable Continue to monitor Atrial Fibrillation with RVR Has significant valvular heart disease with atrial fibrillation and increased ventricular rate Was on IV amiodarone with plan to transition to BB once vasopressor weaned, currently on oral amiodarone Anticoagulation previously on hold in the setting of acute blood loss anemia- heparin resumed Cardiology managing, appreciate recs Improving Closed left hip fracture Status post mechanical fall Orthopedics consulted, appreciate recs -s/p ORIF on 11/07/24 PT/OT Continue to monitor progress Significant valvular heart disease Has moderate aortic stenosis, severe mitral valve stenosis and moderate mitral regurgitation Severe pulmonary hypertension as well Echo She will likely need valvular heart surgery She will need to have follow-up appointments with Cardiac/Thoracic surgeon as an outpatient Chronic heart failure with preserved EF History of CHF No evidence of acute CHF during this admission Diet: HH DVT prophylaxis: heparin resumed Dispo: per pT/OT recs Admission and Anticipated Discharge Date Admission Date: November 06, 2024 Subjective Pt seen later in the day Notes she was up and sitting in the chair, too painful but she was able to tolerate the day before Still requiring pressor support Review of Systems Review of Systems: All systems reviewed & are unremarkable except as noted in Subjective Physical Exam Physical Exam: General: Alert, oriented. No acute distress Psych: Appropriate mood and affect HEENT: NC/AT CV: Irregular, murmur appreciated Resp: Breath sounds clear bilaterally, no increased effort of breathing Abdomen: Soft, nontender Extremities: LLE with noted bandages, able to move feet Results & Data Results & Data Vital Signs (Past 12 Hours) Vital Signs Temp Pulse Resp BP Pulse Ox O2 Del Method 11/12/24 12:45 96/60 L 11/12/24 12:45 96/60 L 11/12/24 12:40 36.7 C 11/12/24 12:39 101 H 17 11/12/24 12:38 89/59 L 11/12/24 12:36 98 H 19 11/12/24 12:31 76/51 L 11/12/24 12:31 76/51 L 11/12/24 12:31 76/51 L 11/12/24 12:30 96 H 24 11/12/24 12:16 114/69 11/12/24 12:12 73 22 11/12/24 12:06 74 23 11/12/24 12:05 119/73 11/12/24 12:05 119/73 11/12/24 12:05 119/73 11/12/24 11:30 98/61 L 11/12/24 11:27 97 H 22 11/12/24 11:00 100 H 26 H 11/12/24 11:00 112/73 11/12/24 11:00 112/73 11/12/24 11:00 112/73 11/12/24 11:00 112/73 11/12/24 10:45 107/65 11/12/24 10:45 107/65 11/12/24 10:30 86/69 L 11/12/24 10:30 86/69 L 11/12/24 10:21 102 H 20 11/12/24 10:15 86 24 11/12/24 10:15 119/71 11/12/24 10:15 119/71 11/12/24 10:12 91 H 26 H 11/12/24 10:05 92/62 L 11/12/24 09:48 78 19 94 11/12/24 09:45 108/56 L 11/12/24 09:45 108/56 L 11/12/24 09:45 108/56 L 11/12/24 09:33 72 19 93 11/12/24 09:30 113/62 11/12/24 09:30 113/62 05/28/25 09:30 113/62 11/12/24 09:30 75 21 93 11/12/24 09:18 78 22 94 11/12/24 09:16 110/66 11/12/24 09:16 110/66 11/12/24 09:16 110/66 11/12/24 09:12 81 25 H 93 11/12/24 09:03 75 19 92 11/12/24 09:00 114/66 11/12/24 08:57 72 18 93 11/12/24 08:48 72 19 95 11/12/24 08:45 117/72 11/12/24 08:39 71 18 93 11/12/24 08:30 115/61 11/12/24 08:27 68 29 H 94 11/12/24 08:21 77 21 93 11/12/24 08:03 96 H 21 96 11/12/24 08:00 92/64 L 11/12/24 07:59 Room Air 11/12/24 07:57 79 22 11/12/24 07:54 81 21 11/12/24 07:50 36.6 C 11/12/24 07:42 85 19 11/12/24 07:30 111/67 11/12/24 07:30 111/67 11/12/24 07:30 111/67 11/12/24 07:15 118/71 11/12/24 07:15 118/71 11/12/24 07:06 76 27 H 11/12/24 07:00 70 28 H 11/12/24 07:00 105/60 11/12/24 07:00 105/60 11/12/24 06:31 109/64 11/12/24 06:27 66 17 11/12/24 06:15 109/64 11/12/24 06:15 109/64 11/12/24 06:03 90 17 11/12/24 06:01 87/72 L 11/12/24 06:01 87/72 L 11/12/24 06:01 87/72 L 11/12/24 06:00 86 18 11/12/24 05:45 113/75 11/12/24 05:45 113/75 11/12/24 05:42 64 20 11/12/24 05:30 68 22 11/12/24 05:30 113/62 11/12/24 05:15 97/69 L 11/12/24 05:15 97/69 L 11/12/24 05:03 59 L 17 11/12/24 05:00 66 27 H 11/12/24 05:00 116/63 11/12/24 05:00 116/63 11/12/24 04:45 111/59 L 11/12/24 04:45 111/59 L 11/12/24 04:36 64 17 11/12/24 04:29 36.3 C L 17 93 Room Air 11/12/24 04:15 107/61 11/12/24 04:15 107/61 11/12/24 04:03 66 23 11/12/24 04:00 110/65 11/12/24 03:45 113/67 11/12/24 03:45 113/67 11/12/24 03:33 52 L 16 11/12/24 03:30 106/64 11/12/24 03:30 106/64 11/12/24 03:30 65 16 11/12/24 03:00 67 17 11/12/24 03:00 109/69 11/12/24 03:00 109/69 11/12/24 03:00 109/69 11/12/24 02:45 106/64 11/12/24 02:45 106/64 11/12/24 02:39 69 25 H 11/12/24 02:30 107/66 11/12/24 02:15 105/68 11/12/24 02:15 105/68 11/12/24 02:00 109/63 11/12/24 01:54 65 16 11/12/24 01:45 68 19 11/12/24 01:45 115/65 11/12/24 01:45 115/65 11/12/24 01:45 115/65 11/12/24 01:45 115/65 11/12/24 01:45 115/65 11/12/24 01:39 72 18 11/12/24 01:30 100/64 11/12/24 01:15 101/60 11/12/24 01:06 67 19
[2024-11-12] MEDS: AMIODARONE 200 MG TAB PO SCH (16:24)
[2024-11-13 05:17] LABS: Hemoglobin 7.5 g/dl (12.0-16.0); Mean Corpuscular Hemoglobin 30.4 pg (25.0-34.0); Mean Corpuscular Hgb Conc 34.1 g/dL (32.0-36.0); Mean Corpuscular Volume 89.1 fL (80.0-100.0); Mean Platelet Volume 10.6 fL (9.4-12.4); Nucleated RBC # (auto) 0.44 K/uL (0.00-0.12); Nucleated RBC % (auto) 4.1 %; Platelet Count 138 K/uL (130-400); RDW Coefficient of Variation 17.3 % (11.5-14.5); RDW Standard Deviation 48.1 fL (36.4-46.3); Red Blood Count 2.47 M/uL (4.20-5.40); White Blood Count 10.85 K/ul (4.8-10.8)
[2024-11-13 05:32] LABS: BUN Creatinine Ratio 26.3 (10-20); Calcium 7.7 mg/dl (8.6-10.3); Creatinine Clr Calc Pharmacy 67.2 ml/min; Phosphorus 2.9 mg/dl (2.5-4.9); Potassium 3.7 mmol/L (3.5-5.1)
[2024-11-13 05:44] LABS: Basophilic Stippling 1+; Basophils # (auto) 0.03 K/uL (0.00-0.20); Basophils % (auto) 0.3 %; Eosinophils # (auto) 0.01 K/uL (0.00-0.50); Eosinophils % (auto) 0.1 %; Immature Granulocytes % (auto) 9.2 %; Lymphocytes # (auto) 1.22 K/uL (1.20-3.40); Lymphocytes % (auto) 11.2 %; Monocytes % (auto) 7.4 %; Neutrophils # (auto) 7.79 K/uL (1.40-6.50); Neutrophils % (auto) 71.8 %; Polychromasia 2+; Tear Drop Cells 2+
[2024-11-13 05:45] LABS: ANTI-Xa, UFH(UnfractionatedHep 0.65 IU/ml (0.3-0.7)
--- NOTE | 2024-11-13 07:20 | Critical Care Progress Note ---
Date of Service November 13, 2024 Assessment & Plan (1) Atrial fibrillation: (2) Closed fracture of left hip: (3) Chronic heart failure with preserved ejection fraction: (4) Severe pulmonary hypertension: (5) Atrial fibrillation with controlled ventricular response: (6) Severe mitral valve stenosis: (7) Shock circulatory: (8) Ex-smoker: (9) Aortic stenosis: (10) Acute blood loss anemia: Plan Reason Critically Ill: 74-year-old female with a history of severe mitral stenosis, mild aortic stenosis and moderate aortic stenosis admitted status post fall with hip fracture. Course complicated by significant hypotension requiring 2 vasopressor agents and atrial fibrillation with rapid ventricular response. 24-hour events: Remains on heparin. Hemoglobin holding. Off pressors since yesterday. Recommendations: Neuro -no current issues. Continue pain management with as needed Percocet. Continue PT OT with increasing activity and mobilization as tolerated. Cardiac -hypotension resolved. Continue midodrine 10 mg 3 times daily. If hemodynamics remain stable, would wean Solu-Cortef and Florinef to off over the next 3 to 4 days. Consider gentle diuresis if hemodynamics allow. Hold beta- blockers for now given marginal hemodynamics. Continue heparin infusion and follow blood counts. Will need to transition to DOAC at some point. Significant pulmonary hypertension on echo likely secondary to valvular heart disease. Follow-up echo recommended in the outpatient setting in 3-4 months. Respiratory -weaning oxygen as tolerated. Continue incentive spirometry. No evidence of acute bronchospasm. Out of bed to chair as tolerated GI - regular diet as tolerated RENAL/LYTES -ICU electrolyte replacement protocol. ENDO - currently on stress dose steroids for relative adrenal insufficiency. Continue Florinef. Wean once hemodynamics stabilize. Glycemic control per protocol HEME -postoperative hematoma. Patient's received 3 units packed cells. Hemoglobin stable this morning. Thrombocytopenia resolved ID -following clinically. Off antibiotics Musculoskeletal -status post repair left hip fracture. Mobilization as tolerated by hemodynamics. --Prophylaxis VTE: IPC. On therapeutic anticoagulation for valvular A-fib GI: Pantoprazole Lines: Right IJ, Gutierrez Diet: Regular Patient's critical care issues have resolved. She is hemodynamically stable and appropriate to transfer to the floor. Critical care services will sign off. Feel free to contact us with questions or concerns Admission and Anticipated Discharge Date Admission Date: November 06, 2024 Subjective Patient seen and examined. EMR reviewed. Discussed with bedside critical care nurse in a multidisciplinary rounds. Patient states that she had a somewhat rough day yesterday. She experience some nausea. She is unclear if this was related to pain or potentially the pain medications. This morning she feels better. She is not experiencing any chest pain. No shortness of breath. No nausea or vomiting this morning. She is anxious to continue with her rehab Review of Systems Review of Systems: All systems reviewed & are unremarkable except as noted in Subjective Physical Exam Constitutional: well developed, well nourished and + obese Neck: trachea midline, no thyromegaly Respiratory: no respiratory distress Auscultation: lungs clear to auscultation bilaterally and + diminished lung sounds ( at the bases) Cardiovascular: Rate/Rhythm: + irregularly irregular; not tachycardic Heart Sounds: normal S1, normal S2 and + murmur Extremities: + edema (Trace edema bilaterally) Gastrointestinal (Abdomen): Inspection/Auscultation: normal bowel sounds; abdomen not distended Percussion/Palpation: abdomen soft; abdomen nontender Neurologic: normal touch/pain/proprioception and moves all extremities (Less movement with the left lower extremity due to fracture) Psychiatric: A+Ox3, euthymic affect Lymphatic: no cervical or axillary lymphadenopathy Results & Data Results & Data Vital Signs (Past 12 Hours) Vital Signs Temp Pulse Resp BP Pulse Ox Pulse Ox O2 Del Method 11/13/24 06:00 86 23 122/67 Room Air 11/13/24 05:00 81 20 103/70 Room Air 11/13/24 04:00 36.7 C 80 19 104/59 L 93 Room Air 11/13/24 03:00 74 18 102/60 Room Air 11/13/24 02:00 82 17 108/57 L 93 Room Air 11/13/24 01:01 78 19 98/58 L Room Air 11/13/24 00:00 37 C 92 H 18 118/60 93 Room Air 11/12/24 23:00 82 19 119/58 L 93 Room Air 11/12/24 23:00 93 11/12/24 22:01 82 22 104/63 Room Air 11/12/24 21:00 94 H 24 109/60 Room Air 11/12/24 20:00 36.8 C 88 24 102/66 92 Room Air O2 Del Method 11/13/24 06:00 11/13/24 05:00 11/13/24 04:00 11/13/24 03:00 11/13/24 02:00 11/13/24 01:01 11/13/24 00:00 11/12/24 23:00 11/12/24 23:00 Room Air 11/12/24 22:01 11/12/24 21:00 11/12/24 20:00 Critical Care Results & Data Vital Signs (Past 12 Hours) Vital Signs Temp Pulse Resp BP Pulse Ox Pulse Ox O2 Del Method 11/13/24 06:00 86 23 122/67 Room Air 11/13/24 05:00 81 20 103/70 Room Air 11/13/24 04:00 36.7 C 80 19 104/59 L 93 Room Air 11/13/24 03:00 74 18 102/60 Room Air 11/13/24 02:00 82 17 108/57 L 93 Room Air 11/13/24 01:01 78 19 98/58 L Room Air 11/13/24 00:00 37 C 92 H 18 118/60 93 Room Air 11/12/24 23:00 82 19 119/58 L 93 Room Air 11/12/24 23:00 93 11/12/24 22:01 82 22 104/63 Room Air 11/12/24 21:00 94 H 24 109/60 Room Air 11/12/24 20:00 36.8 C 88 24 102/66 92 Room Air O2 Del Method 11/13/24 06:00 11/13/24 05:00 11/13/24 04:00 11/13/24 03:00 11/13/24 02:00 11/13/24 01:01 11/13/24 00:00 11/12/24 23:00 11/12/24 23:00 Room Air 11/12/24 22:01 11/12/24 21:00 11/12/24 20:00 Lab & Micro Results (Past 24 Hours) RBC 2.47 M/uL (4.20-5.40) L 11/13/24 WBC 10.85 K/ul (4.8-10.8) H 11/13/24 Hgb 7.5 g/dl (12.0-16.0) L 11/13/24 Hct 22.0 % (37.0-47.0) L 11/13/24 MCV 89.1 fL (80.0-100.0) 11/13/24 MCH 30.4 pg (25.0-34.0) 11/13/24 MCHC 34.1 g/dL (32.0-36.0) 11/13/24 RDW Standard Deviation 48.1 fL (36.4-46.3) H 11/13/24 RDW Coefficient of Variation 17.3 % (11.5-14.5) H 11/13/24 Plt Count 138 K/uL (130-400) 11/13/24 MPV 10.6 fL (9.4-12.4) 11/13/24 Nucleated Red Blood Cells % (auto) 4.1 % 11/13 Nucleated RBC Absolute Count (auto) 0.44 K/uL (0.00-0.12) H 11/13/24 Neutrophils (%) (Auto) 71.8 % 11/13/24 Lymphocytes (%) (Auto) 11.2 % 11/13/24 Monocytes # (Auto) 0.80 K/uL (0.11-0.59) H 11/13/24 Eosinophils # (Auto) 0.01 K/uL (0.00-0.50) 11/13/24 Immature Granulocyte % (Auto) 9.2 % 11/13/24 Neutrophils # (Auto) 7.79 K/uL (1.40-6.50) H 11/13/24 Lymphocytes # (Auto) 1.22 K/uL (1.20-3.40) 11/13/24 Monocytes # (Auto) 0.80 K/uL (0.11-0.59) H 11/13/24 Eosinophils # (Auto) 0.01 K/uL (0.00-0.50) 11/13/24 Basophils # (Auto) 0.03 K/uL (0.00-0.20) 11/13/24 Immature Granulocyte # (Auto) 1.00 K/uL (0.01-0.20) H 11/13 Polychromasia 2+ 11/13/24 Basophilic Stippling 1+ 11/13/24 Tear Drop Cells 2+ 11/13/24 Na 134 mmol/L (136-145) L 11/13/24 K 3.7 mmol/L (3.5-5.1) 11/13/24 Cl 102 mmol/L (98-107) 11/13/24 CO2 26 mmol/L (21-32) 11/13/24 Anion Gap 6 (3-11) 11/13/24 BUN 25 mg/dl (6-23) H 11/13/24 Creatinine 0.95 mg/dl (0.6-1.2) 11/13/24 BUN/Creatinine Ratio 26.3 (10-20) H 11/13/24 Glu 117 mg/dl (70-99(Fasting)) H 11/13/24 Ca 7.7 mg/dl (8.6-10.3) L 11/13/24 Phosphorus Level 2.9 mg/dl (2.5-4.9) 11/13/24 Mg 2.0 mg/dl (1.7-2.4) 11/13/24 04:46 Calcium Level 7.7 mg/dl (8.6-10.3) L 11/13/24 04:46 Diagnostic Findings (Past 24 Hours) Femur X-Ray 11/07/24 07:00 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 Fluoroscopy time: 4 minutes and 41 seconds. Number of fluoroscopic images: 6. Ka,r: 87.18 mGy. FINDINGS: Fluoroscopy was provided during open reduction and internal fixation of the intertrochanteric fracture of the left femur with trochanteric nail. Fracture alignment has improved. Distal screws are present. Linear radiodensities project over the operative bed are likely on the patient. Severe left hip osteoarthritis incidentally noted. IMPRESSION: Fluoroscopy provided during open reduction and internal fixation of the intertrochanteric fracture of the left femur. ACT 112: Negative or not required by law. Electronically signed by: Wilfredo Corbett M.D. 11/08/2024 12:08 PM I & O Totals 24 Hours 11/12/24 11/13/24 11/14/24 06:59 06:59 06:59 Intake Total 999.884 / 121.113 0593.156 / 1772.156 29.333 / 29.333 Output Total 1396 / 1396 1186 / 1186 Balance -396.116 / -396.116 586.156 / 586.156 29.333 / 29.333 Cumulative 11/06/24 19:30 thru 11/13/24 07:14 Intake Total 06478.292 Output Total 6762 Balance 4746.292 RT Ventilator Mngmt (Last Documented) Ventilator Ordered Settings Respiratory Rate 23 11/13/24 06:00 Ventilator - PT Measurements Respiratory Rate 23 Coding Level of Care Code 63676 SUB INP/OBS CARE 2/35MIN Diagnoses Atrial fibrillation I48.91 Atrial fibrillation type: unspecified Closed fracture of left hip S72.002A Encounter type: initial encounter Chronic heart failure with preserved ejection fraction I50.32 Severe pulmonary hypertension I27.20 Atrial fibrillation with controlled ventricular response I48.91 Severe mitral valve stenosis I05.0 Shock circulatory R57.9 Ex-smoker Z87.891 Aortic stenosis I35.0 Acute blood loss anemia D62 (1) Atrial fibrillation Atrial fibrillation type: unspecified Qualified Code(s): I48.91 - Unspecified atrial fibrillation (2) Closed fracture of left hip Encounter type: initial encounter Qualified Code(s): S72.002A - Fracture of u nspecified part of neck of left femur, initial encounter for closed fracture
[2024-11-13] MEDS: PANTOprazole 40 MG TAB PO SCH (08:44)
[2024-11-13] MEDS: HYDROmorphone INJ 0.5 MG/0.5 ML SYR IV PRN (09:03)
--- NOTE | 2024-11-13 10:49 | Cardiology Progress Note ---
Date of Service November 13, 2024 Assessment & Plan (1) Aortic stenosis: (2) Atrial fibrillation with controlled ventricular response: (3) Severe pulmonary hypertension: (4) Chronic heart failure with preserved ejection fraction: (5) Severe mitral insufficiency: Plan Assessment / Plan: Medically complex 74-year-old female who resided in [place] presents with mechanical fall and acute left hip fracture. She was deemed high perioperative cardiovascular risk due to severe mitral valve stenosis (mean diastolic gradient of 10-14 with ventricular rate of 84 bpm) with severe pulmonary hypertension (PASP estimated to be 71 mm Hg). Moderate mitral regurgitation and mild to moderate aortic valve stenosis also noted. LV systolic function preserved (LVEF 60-65%) without regional wall motion abnormality. Post operatively, patient developed hypotension and Hgb trended zackery to 6.2 g/dl, having been 15.8 g/dl on presentation. Heparin was discontinued. Patient required support with vasopressin and norepiniphrine and has received transfustion of 3 units of PBRCs, with Hgb 7.9 g/dl on 11/10/24. CT left femur 11/08/24 revealed large subcutaneous and gluteal hematoma 1. Shock secondary to acute blood loss and Valvular disease 2. Atrial fibrillation with RVR * rate controlled with amiodarone * the use of other AV emil blockers is limited due to hypotension * anticoagulation to be held until surgical site hematoma and hemoglobin are stable * when BP improves start on metoprolol 11/11/2024 Patient hemodynamically improved after transfusion though hemoglobin still below 8. Heart rates much better controlled with combination of IV amiodarone, volume, blood resuscitation. Duration of atrial fibrillation uncertain but newly observed Issues to be addressed as follows 1. Atrial fibrillation with rapid ventricular response: Current rates controlled/improved with IV amiodarone. Ultimate goal would be discontinue this drug given low likelihood of return to sinus rhythm and possible increased risk for thromboembolic event if spontaneous conversion given uncertain duration of atrial fibrillation. Goal be to begin oral metoprolol as pressors weaned. Will require anticoagulation with heparin to warfarin once anemia concerns resolved 2. Valvular heart disease: Mixed aortic and mitral valve stenosis. Will reassess now heart rates controlled. May see improvement in mitral valve gradients now that rate is slowed, anemia being addressed Ultimately will require anticoagulation 3. Mixed etiology acute postoperative shock secondary to valvular disease as well as atrial fibrillation with rapid response, acute blood loss/anemia. Patient without a current complaint and improving hemodynamically plan as outlined above 3. Mixed etiology acute postoperative shock secondary to valvular disease as well as atrial fibrillation with rapid response, acute blood loss/anemia. 11/12/2024 1. Atrial fibrillation with rapid response improving with IV amiodarone we will transition this to oral but ultimate goal will be switched to beta-jose as BP Will require chronic anticoagulation 2. Mixed valvular heart disease with aortic stenosis and mild mitral stenosis with severe mitral insufficiency 3. Postoperative anemia 4. Mixed etiology acute postoperative shock secondary to valvular disease as well as atrial fibrillation with rapid response, acute blood loss/anemia. 11/13/2024 Patient clinically improving but slowly. Now off pressors atrial fibrillation rates with fair control. No physical findings consistent with volume overload or profound edema 1. Atrial fibrillation with rapid ventricular response improving with clinical course. Will begin low-dose beta-jose allow off pressors ultimately goal transition to beta-jose if possible from amiodarone 2. Mixed valvular heart disease repeat echocardiogram demonstrates heavily calcified aortic and mitral valves with mild to moderate aortic stenosis and mild mitral stenosis with severe mitral insufficiency. Severely dilated left atrium 3. Postoperative anemia with slow return. Low threshold for further transfusion. Continue anticoagulation with IV heparin. Possible transition to warfarin in the next 24 hours 4. Persistent hypotension multifactorial: Recommend tapering corticosteroids Low threshold for further transfusion Vigorous left ventricle on echocardiography hopefully improve cardiac output with slowing of heart rate Admission and Anticipated Discharge Date Admission Date: November 06, 2024 Subjective Patient was seen and personally examined. No acute complaints. Sitting upright in bed no worsening shortness of breath or cough. Off pressors. Atrial fibrillation rates 90s to low 100s Review of Systems Review of Systems: All systems reviewed & are unremarkable except as noted in Subjective Physical Exam Constitutional: + obese; no acute distress Eyes: PERRL, conjunctivae normal, anicteric sclerae Neck: trachea midline, no thyromegaly Respiratory: normal respiratory effort, lungs clear to auscultation Cardiovascular: Rate/Rhythm: + irregularly irregular Heart Sounds: + murmur (Grade 3/6 systolic) Vessels: no JVD Extremities: no edema Gastrointestinal (Abdomen): normal bowel sounds, soft, nontender, no hepatosplenomegaly Results & Data Vital Signs (Past 12 Hours) Vital Signs Temp Pulse Pulse Resp BP BP Pulse Ox 11/13/24 09:09 98 H 22 95 11/13/24 09:01 116/87 11/13/24 08:00 111/71 96 11/13/24 08:00 36.5 C 89 17 111/71 96 11/13/24 07:57 89 18 11/13/24 07:03 88 21 11/13/24 07:00 100/66 11/13/24 06:00 86 23 122/67 11/13/24 05:00 81 20 103/70 11/13/24 04:00 36.7 C 80 19 104/59 L 93 11/13/24 03:00 74 18 102/60 11/13/24 02:00 82 17 108/57 L 93 11/13/24 01:01 78 19 98/58 L 11/13/24 00:00 37 C 92 H 18 118/60 93 11/12/24 23:00 82 19 119/58 L 93 11/12/24 23:00 Pulse Ox O2 Del Method O2 Del Method 11/13/24 09:09 11/13/24 09:01 11/13/24 08:00 Room Air 11/13/24 08:00 Room Air 11/13/24 07:57 11/13/24 07:03 11/13/24 07:00 11/13/24 06:00 Room Air 11/13/24 05:00 Room Air 11/13/24 04:00 Room Air 11/13/24 03:00 Room Air 11/13/24 02:00 Room Air 11/13/24 01:01 Room Air 11/13/24 00:00 Room Air 11/12/24 23:00 Room Air 11/12/24 23:00 93 Room Air Laboratory Results Laboratory Results - last 24 hr 11/13/24 04:46 WBC 10.85 H RBC 2.47 L Hgb 7.5 L Hct 22.0 L MCV 89.1 MCH 30.4 MCHC 34.1 RDW Std Deviation 48.1 H RDW Coeff of Gifty 17.3 H Plt Count 138 MPV 10.6 Immature Gran % (Auto) 9.2 Neut % (Auto) 71.8 Lymph % (Auto) 11.2 [place] % (Auto) 7.4 Eos % (Auto) 0.1 Baso % (Auto) 0.3 Neut # (Auto) 7.79 H Lymph # (Auto) 1.22 [place] # (Auto) 0.80 H Eos # (Auto) 0.01 Baso # (Auto) 0.03 Immature Gran # (Auto) 1.00 H Absolute Nucleated RBC 0.44 H Nucleated RBC % (auto) 4.1 Polychromasia 2+ Basophilic Stippling 1+ Tear Drop Cells 2+ Heparin Anti-Xa, Unfract 0.65 Sodium 134 L Potassium 3.7 Chloride 102 Carbon Dioxide 26 Anion Gap 6 BUN 25 H Creatinine 0.95 Est Cr Clr Drug Dosing 67.2 eGFR 62.87 BUN/Creatinine Ratio 26.3 H Glucose 117 H Calcium 7.7 L Phosphorus 2.9 Magnesium 2.0
--- NOTE | 2024-11-13 11:31 | Orthopedic Progress Note ---
Date of Service November 13, 2024 Assessment & Plan (1) Closed left hip fracture: Plan: The patient was educated regarding today's findings. She was strongly encouraged to work on her hip flexion. She can be doing this while sitting in the chair throughout the day. She was encouraged to participate with physical therapy and to give good effort. Importance of quad function to allow her to walk was emphasized, so that she can eventually return home. Her surgical wounds look excellent. Follow-up in the office in 1 week for wound reevaluation and staple removal. Continue with ice, elevation, DVT prophylaxis, and pain control as ordered. Admission and Anticipated Discharge Date Admission Date: November 06, 2024 Subjective This 74-year-old female is seen today in her room. She remains in ICU. She is postop day 6 from trochanteric nailing of her left femur. She states she has been getting out of bed daily. She is participating with therapy is much as she can tolerate. She states the left leg hurts. She denies any numbness or tingling. No new complaints. Review of Systems Review of Systems: Unchanged. Physical Exam Physical Exam: General: Well-developed, well-nourished, elderly female, sitting in her bedside chair. Alert and oriented. Conversive. Skin: Warm and dry good turgor. Postsurgical incisions on the left thigh are healing well. Wounds are closed. She has no active bleeding. Dressings are dry. Venous stasis changes are present in her lower legs. Expected postoperative edema in the thigh. No ecchymosis. Musculoskeletal: The patient has intact motor function to her left toes and ankle. She is able to press up on her forefoot to elevate the thigh. She cannot actively hip flex. She can extend and flex her knee without assistance. She complains of discomfort with passive rotation as well as flexion of the left hip. Neurologic: Gross sensation is intact across left thigh, calf, and ankle. Peripheral pulses are 2+. Results & Data Vital Signs (Past 12 Hours) Vital Signs Temp Pulse Pulse Resp BP BP Pulse Ox 11/13/24 11:12 36.6 C 11/13/24 11:00 122 H 19 106/80 93 11/13/24 10:06 110 H 20 11/13/24 10:00 107/68 11/13/24 09:09 98 H 22 95 11/13/24 09:01 116/87 11/13/24 08:00 111/71 96 11/13/24 08:00 36.5 C 89 17 111/71 96 11/13/24 07:57 89 18 11/13/24 07:03 88 21 11/13/24 07:00 100/66 11/13/24 06:00 86 23 122/67 11/13/24 05:00 81 20 103/70 11/13/24 04:00 36.7 C 80 19 104/59 L 93 11/13/24 03:00 74 18 102/60 11/13/24 02:00 82 17 108/57 L 93 11/13/24 01:01 78 19 98/58 L 11/13/24 00:00 37 C 92 H 18 118/60 93 O2 Del Method 11/13/24 11:12 11/13/24 11:00 Room Air 11/13/24 10:06 11/13/24 10:00 11/13/24 09:09 11/13/24 09:01 11/13/24 08:00 Room Air 11/13/24 08:00 Room Air 11/13/24 07:57 11/13/24 07:03 11/13/24 07:00 11/13/24 06:00 Room Air 11/13/24 05:00 Room Air 11/13/24 04:00 Room Air 11/13/24 03:00 Room Air 11/13/24 02:00 Room Air 11/13/24 01:01 Room Air 11/13/24 00:00 Room Air Laboratory Results CBC obtained today shows a white count of 10.85. H&H of 7.5 and 22.0. Platelets normal at 138,000. Electrolytes are unremarkable. BUN of 25 with creatinine 0.95. Glucose this morning was 117. Calcium 7.7.
[2024-11-13] MEDS: METOPROLOL SUCC 25MG EXT REL TAB PO SCH (11:32)
--- NOTE | 2024-11-13 11:42 | Hospitalist Progress Note ---
Date of Service November 13, 2024 Assessment & Plan (1) Closed left hip fracture: (2) Chronic heart failure with preserved ejection fraction: (3) Atrial fibrillation with controlled ventricular response: (4) Severe pulmonary hypertension: (5) Severe mitral valve stenosis: (6) Moderate mitral regurgitation: Plan 74-year-old female from [place] visiting [place] with past medical history significant for hypertension, CHF who is status post fall with left hip fracture, s/p ORIF on 11/07/24 with postop anemia and hypotension requiring transfer to the ICU. Hypotensive Shock Pt with postop hypotensive shock requiring transfer to the ICU Required vasopressor support x2 On midodrine 10mg TID, hydrocortisone and florinef for adrenal support Home antihypertensives on hold Improving, downgraded from the ICU on 11/13 after off of pressors for some time Started on Toprol 12.5mg BID on 11/13 by cardiology- will monitor BP with new med to ensure stabilization before weaning steroids Continue to monitor Acute Blood Loss Anemia post op, requiring 3U pRBCs thus far CT abd/pelvis noting large hematoma Heparin previously on hold, has since been resumed Hgb stable at 7.5 Continue to monitor Leukocytosis Has been elevated but downtrending Likely in setting of steroid use No current signs of infection Continue to monitor Atrial Fibrillation with RVR Has significant valvular heart disease with atrial fibrillation and increased ventricular rate Was on IV amiodarone with plan to transition to BB once vasopressor weaned, currently on oral amiodarone Anticoagulation previously on hold in the setting of acute blood loss anemia- heparin resumed Cardiology managing, appreciate recs -currently on amiodarone 200mg BID, plan to discontinue with BB transition -on Toprol XL 12.5 mg BID, started on November 13 Improving Significant valvular heart disease Has moderate aortic stenosis, severe mitral valve stenosis and moderate mitral regurgitation Severe pulmonary hypertension as well Echo will likely need valvular heart surgery will need to have follow-up appointments with Cardiac/Thoracic surgeon as an outpatient Chronic heart failure with preserved EF History of CHF No evidence of acute CHF during this admission However arms do appear swollen +5L this admission Closed left hip fracture Status post mechanical fall Orthopedics consulted, appreciate recs -s/p ORIF on 11/07/24 PT/OT Continue to monitor progress Diet: HH DVT prophylaxis: heparin Dispo: per PT/OT recs- recommending acute rehab Admission and Anticipated Discharge Date Admission Date: November 06, 2024 Subjective Pt was seen in the AM Was anticipating her work with PT, received pain meds before Pressors have been off, ICU requesting downgrade Review of Systems Review of Systems: All systems reviewed & are unremarkable except as noted in Subjective Physical Exam Physical Exam: General: Alert, oriented. No acute distress Psych: Appropriate mood and affect HEENT: NC/AT CV: Irregular, murmur appreciated Resp: Breath sounds clear bilaterally, no increased effort of breathing Abdomen: Soft, nontender Extremities: LLE with noted bandages, able to move feet Results & Data Results & Data Vital Signs (Past 12 Hours) Vital Signs Temp Pulse Pulse Resp BP BP Pulse Ox 11/13/24 11:12 36.6 C 11/13/24 11:00 122 H 19 106/80 93 11/13/24 10:06 110 H 20 11/13/24 10:00 107/68 11/13/24 09:09 98 H 22 95 11/13/24 09:01 116/87 11/13/24 08:00 111/71 96 11/13/24 08:00 36.5 C 89 17 111/71 96 11/13/24 07:57 89 18 11/13/24 07:03 88 21 11/13/24 07:00 100/66 11/13/24 06:00 86 23 122/67 11/13/24 05:00 81 20 103/70 11/13/24 04:00 36.7 C 80 19 104/59 L 93 11/13/24 03:00 74 18 102/60 11/13/24 02:00 82 17 108/57 L 93 11/13/24 01:01 78 19 98/58 L 11/13/24 00:00 37 C 92 H 18 118/60 93 O2 Del Method 11/13/24 11:12 11/13/24 11:00 Room Air 11/13/24 10:06 11/13/24 10:00 11/13/24 09:09 11/13/24 09:01 11/13/24 08:00 Room Air 11/13/24 08:00 Room Air 11/13/24 07:57 11/13/24 07:03 11/13/24 07:00 11/13/24 06:00 Room Air 11/13/24 05:00 Room Air 11/13/24 04:00 Room Air 11/13/24 03:00 Room Air 11/13/24 02:00 Room Air 11/13/24 01:01 Room Air 11/13/24 00:00 Room Air
[2024-11-13] MEDS: AMIODARONE 200 MG TAB PO SCH (17:09)
[2024-11-14 05:27] LABS: Hematocrit (blood only) 23.4 % (37.0-47.0); Hemoglobin 7.9 g/dl (12.0-16.0); Mean Corpuscular Hemoglobin 30.9 pg (25.0-34.0); Mean Corpuscular Hgb Conc 33.8 g/dL (32.0-36.0); Mean Corpuscular Volume 91.4 fL (80.0-100.0); Mean Platelet Volume 10.5 fL (9.4-12.4); Nucleated RBC # (auto) 0.52 K/uL (0.00-0.12); Nucleated RBC % (auto) 3.4 %; Platelet Count 162 K/uL (130-400); RDW Coefficient of Variation 18.9 % (11.5-14.5); RDW Standard Deviation 49.2 fL (36.4-46.3); Red Blood Count 2.56 M/uL (4.20-5.40); White Blood Count 15.22 K/ul (4.8-10.8)
[2024-11-14 05:46] LABS: Albumin Globulin Ratio 1.1 (0.9-2); BUN Creatinine Ratio 28.1 (10-20); Bilirubin,Total 2.1 mg/dl (0.2-1.0); Calcium 7.7 mg/dl (8.6-10.3); Creatinine Clr Calc Pharmacy 66.2 ml/min; Globulin 2.7 gm/dl (2.5-4.0); Phosphorus 3.5 mg/dl (2.5-4.9); Total Protein 5.7 gm/dl (6.0-8.3)
[2024-11-14 06:15] LABS: ANTI-Xa, UFH(UnfractionatedHep 0.91 IU/ml (0.3-0.7)
[2024-11-14 06:33] LABS: Polychromasia 2+
[2024-11-14 07:01] LABS: ALC (manual) 1.07 K/uL (1.2-3.4); ANC (manual) 11.57 K/uL (1.4-6.5); Basophils # (manual) 0.15 K/uL (0-0.2); Basophils % (manual) 1 %; Lymphocytes # (manual) 1.07 K/uL (1.2-3.4); Lymphocytes % (manual) 7 %; Metamyelocytes # (manual) 1.22 K/uL (0-0); Metamyelocytes % (manual) 8 %; Monocytes # (manual) 0.61 K/uL (0.11-0.59); Monocytes % (manual) 4 %; Myelocytes # (manual) 0.46 K/uL (0-0); Myelocytes % (manual) 3 %; Neutrophils # (manual) 11.57 K/uL (1.40-6.50); Neutrophils % (manual) 76 %; Promyelocytes # (manual) 0.15 K/uL (0-0); Promyelocytes % (manual) 1 %
--- NOTE | 2024-11-14 11:07 | Ultrasound Report ---
RENAL ULTRASOUND HISTORY: f/u CT, left kidney lesion COMPARISON: CT 11/08/2024 FINDINGS: Limited study secondary to patient body habitus. Right kidney: 10.2 cm. No hydronephrosis. Normal corticomedullary differentiation and cortical thickn ess. Left kidney: 10.8 cm. Ill-defined hypoechoic lesion within the midpole left kidney demonstrates no de finite color flow measuring 1.4 x 1.4 x 0.9 cm and appears to represent a complex septated cyst. No h ydronephrosis. Normal corticomedullary differentiation and cortical thickness. Bladder: No bladder wall thickening. The bilateral ureteral jets are not identified. 1.3 cm splenule again noted. IMPRESSION: 1. Limited exam secondary to patient body habitus. 2. 1.4 cm lesion within the midpole left kidney favors a complex cyst, however is suboptimally evalua yanci. A precautionary MRI of the abdomen with and without IV contrast utilizing renal protocol recomme nded to further evaluate. 3. No hydronephrosis. ACT 112: Negative or not required by law. Electronically signed by: Vimal Altamirano M.D. 11/14/2024 11:05 AM
--- NOTE | 2024-11-14 11:24 | Hospitalist Progress Note ---
Date of Service November 14, 2024 Assessment & Plan (1) Closed left hip fracture: (2) Chronic heart failure with preserved ejection fraction: (3) Atrial fibrillation with controlled ventricular response: (4) Severe pulmonary hypertension: (5) Severe mitral valve stenosis: (6) Moderate mitral regurgitation: Plan 74-year-old female from [place] visiting [place] with past medical history significant for hypertension, CHF who is status post fall with left hip fracture, s/p ORIF on 11/07/24 with postop anemia and hypotension requiring transfer to the ICU. Hypotensive Shock Pt with postop hypotensive shock requiring transfer to the ICU Required vasopressor support x2 On midodrine 10mg TID, hydrocortisone and florinef for adrenal support Home antihypertensives on hold Improving, downgraded from the ICU on 11/13 after off of pressors for some time On Toprol 25mg BID, weaning steroids Continue to monitor Acute Blood Loss Anemia post op, requiring 3U pRBCs thus far CT abd/pelvis noting large hematoma Heparin previously on hold, has since been resumed Hgb stable at 7.5 Continue to monitor Leukocytosis Has been elevated but downtrending Likely in setting of steroid use No current signs of infection Continue to monitor Atrial Fibrillation with RVR Has significant valvular heart disease with atrial fibrillation and increased ventricular rate Was on IV amiodarone to oral amio with plan to transition to BB once vasopressor weaned Anticoagulation previously on hold in the setting of acute blood loss anemia- heparin resumed Cardiology managing, appreciate recs. Recommended/stated the following: "...As above discontinue amiodarone and begin higher dose beta-jose with metoprolol succinate 25 twice daily As hemoglobin stabilized would transition IV heparin to oral warfarin for valvular atrial fibrillation Follow closely's for signs and symptoms of fluid retention, discontinue Florinef Would recommend weaning IV hydrocortisone Portable chest x-ray a.m..." Improving 11/14- INR on 11/07 1.3. started on warfarin today with heparin bridge. Will need close monitoring of H/H Significant valvular heart disease Has moderate aortic stenosis, severe mitral valve stenosis and moderate mitral regurgitation Severe pulmonary hypertension as well Echo will likely need valvular heart surgery will need to have follow-up appointments with Cardiac/Thoracic surgeon as an outpatient Chronic heart failure with preserved EF History of CHF No evidence of acute CHF during this admission However arms do appear swollen +5L this admission Closed left hip fracture Status post mechanical fall Orthopedics consulted, appreciate recs -s/p ORIF on 11/07/24 PT/OT Continue to monitor progress Diet: HH DVT prophylaxis: heparin Dispo: per PT/OT recs- recommending acute rehab Admission and Anticipated Discharge Date Admission Date: November 06, 2024 Subjective Pt was seen in the AM Notes she was able to sit in the chair for 2 hours the day before Denied chest pain or SOB Review of Systems Review of Systems: All systems reviewed & are unremarkable except as noted in Subjective Physical Exam Physical Exam: General: Alert, oriented. No acute distress Psych: Appropriate mood and affect HEENT: NC/AT CV: Irregular, murmur appreciated Resp: Breath sounds clear bilaterally, no increased effort of breathing Abdomen: Soft, nontender Extremities: LLE with noted bandages, able to move feet Results & Data Results & Data Vital Signs (Past 12 Hours) Vital Signs Temp Pulse Pulse Resp BP Pulse Ox O2 Del Method 11/14/24 10:47 101 H 11/14/24 10:32 36.5 C 90 21 114/57 L 90 Room Air 11/14/24 08:12 36.5 C 84 22 107/59 L 92 Room Air 11/14/24 08:00 Room Air 11/14/24 04:46 36.6 C 17 100/56 L 92 Room Air 11/14/24 00:18 36.6 C 22 95/59 L 92 Room Air 11/14/24 00:00 77
--- NOTE | 2024-11-14 11:33 | Cardiology Progress Note ---
Date of Service November 14, 2024 Assessment & Plan (1) Aortic stenosis: (2) Atrial fibrillation with controlled ventricular response: (3) Severe pulmonary hypertension: (4) Chronic heart failure with preserved ejection fraction: (5) Severe mitral insufficiency: Plan Assessment / Plan: Medically complex 74-year-old female who resided in [place] presents with mechanical fall and acute left hip fracture. She was deemed high perioperative cardiovascular risk due to severe mitral valve Disease with severe pulmonary hypertension (PASP estimated to be 71 mm Hg). Moderate mitral regurgitation and mild to moderate aortic valve stenosis also noted. LV systolic function preserved (LVEF 60-65%) without regional wall motion abnormality. Post operatively, patient developed hypotension and Hgb trended zackery to 6.2 g/dl, having been 15.8 g/dl on presentation. Heparin was discontinued. Patient required support with vasopressin and norepiniphrine and has received transfustion of 3 units of PBRCs, with Hgb 7.9 g/dl on 11/10/24. CT left femur 11/08/24 revealed large subcutaneous and gluteal hematoma 1. Shock secondary to acute blood loss and Valvular disease 2. Atrial fibrillation with RVR * rate controlled with amiodarone * the use of other AV emil blockers is limited due to hypotension * anticoagulation to be held until surgical site hematoma and hemoglobin are stable * when BP improves start on metoprolol 11/11/2024 Patient hemodynamically improved after transfusion though hemoglobin still below 8. Heart rates much better controlled with combination of IV amiodarone, volume, blood resuscitation. Duration of atrial fibrillation uncertain but newly observed Issues to be addressed as follows 1. Atrial fibrillation with rapid ventricular response: Current rates c ontrolled/improved with IV amiodarone. Ultimate goal would be discontinue this drug given low likelihood of return to sinus rhythm and possible increased risk for thromboembolic event if spontaneous conversion given uncertain duration of atrial fibrillation. Goal be to begin oral metoprolol as pressors weaned. Will require anticoagulation with heparin to warfarin once anemia concerns resolved 2. Valvular heart disease: Mixed aortic and mitral valve stenosis. Will reassess now heart rates controlled. May see improvement in mitral valve gradients now that rate is slowed, anemia being addressed Ultimately will require anticoagulation 3. Mixed etiology acute postoperative shock secondary to valvular disease as well as atrial fibrillation with rapid response, acute blood loss/anemia. Patient without a current complaint and improving hemodynamically plan as outlined above 3. Mixed etiology acute postoperative shock secondary to valvular disease as well as atrial fibrillation with rapid response, acute blood loss/anemia. 11/12/2024 1. Atrial fibrillation with rapid response improving with IV amiodarone we will transition this to oral but ultimate goal will be switched to beta-jose as BP Will require chronic anticoagulation 2. Mixed valvular heart disease with aortic stenosis and mild mitral stenosis with severe mitral insufficiency 3. Postoperative anemia 4. Mixed etiology acute postoperative shock secondary to valvular disease as well as atrial fibrillation with rapid response, acute blood loss/anemia. 11/13/2024 Patient clinically improving but slowly. Now off pressors atrial fibrillation rates with fair control. No physical findings consistent with volume overload or profound edema 1. Atrial fibrillation with rapid ventricular response improving with clinical course. Will begin low-dose beta-jose allow off pressors ultimately goal transition to beta-ojse if possible from amiodarone 2. Mixed valvular heart disease repeat echocardiogram demonstrates heavily calcified aortic and mitral valves with mild to moderate aortic stenosis and mild mitral stenosis with severe mitral insufficiency. Severely dilated left atrium 3. Postoperative anemia with slow return. Low threshold for further transfusion. Continue anticoagulation with IV heparin. Possible transition to warfarin in the next 24 hours 4. Persistent hypotension multifactorial: Recommend tapering corticosteroids Low threshold for further transfusion Vigorous left ventricle on echocardiography hopefully improve cardiac output with slowing of heart rate 11/14/2024 1. Atrial fibrillation with rapid ventricular response, valvular: Heart rates trending towards better control. Ultimate goal switch to beta-jose as blood pressures have improved. Will discontinue amiodarone and increase metoprolol succinate. Currently on anticoagulation with IV heparin will need to transition to warfarin (significant valvular disease present) 2. Mild to moderate calcific aortic stenosis 3. Calcified mitral valve with mild mitral stenosis and severe mitral insufficiency with marked left atrial dilatation. Note severe mitral stenosis not present on most recent echo 4. Postoperative anemia, hemodynamic shock mixed etiology including valvular disease atrial fibrillation and anemia Plan: As above discontinue amiodarone and begin higher dose beta-jose with metoprolol succinate 25 twice daily As hemoglobin stabilized would transition IV heparin to oral warfarin for valvular atrial fibrillation Follow closely's for signs and symptoms of fluid retention, discontinue Florinef Would recommend weaning IV hydrocortisone Portable chest x-ray a.m. Admission and Anticipated Discharge Date Admission Date: November 06, 2024 Subjective Patient was seen and personally examined, chart, medications, telemetry reviewed. No acute complaints but fatigued when sitting out of bed in chair. No dizziness or lightheadedness no productive cough. Review of Systems Review of Systems: All systems reviewed & are unremarkable except as noted in Subjective Physical Exam Constitutional: + obese; no acute distress Eyes: PERRL, conjunctivae normal, anicteric sclerae Neck: trachea midline, no thyromegaly Respiratory: normal respiratory effort, lungs clear to auscultation Cardiovascular: Rate/Rhythm: + irregularly irregular Heart Sounds: + murmur (Grade 3/6 systolic) Vessels: no JVD Extremities: no edema Gastrointestinal (Abdomen): normal bowel sounds, soft, nontender, no hepatosplenomegaly Results & Data Vital Signs (Past 12 Hours) Vital Signs Temp Pulse Pulse Resp BP Pulse Ox O2 Del Method 11/14/24 10:47 101 H 11/14/24 10:32 36.5 C 90 21 114/57 L 90 Room Air 11/14/24 08:12 36.5 C 84 22 107/59 L 92 Room Air 11/14/24 08:00 Room Air 11/14/24 04:46 36.6 C 17 100/56 L 92 Room Air 11/14/24 00:18 36.6 C 22 95/59 L 92 Room Air 11/14/24 00:00 77 Laboratory Results Laboratory Results - last 24 hr 11/14/24 04:38 WBC 15.22 H RBC 2.56 L Hgb 7.9 L Hct 23.4 L MCV 91.4 MCH 30.9 MCHC 33.8 RDW Std Deviation 49.2 H RDW Coeff of Gifty 18.9 H Plt Count 162 MPV 10.5 Absolute Nucleated RBC 0.52 H Nucleated RBC % (auto) 3.4 Neutrophils % (Manual) 76 Lymphocytes % (Manual) 7 Monocytes % (Manual) 4 Basophils % (Manual) 1 Metamyelocytes % (Man) 8 Myelocytes % (Man) 3 Promyelocytes % (Man) 1 Neutrophils # (Manual) 11.57 H Total Absolute Neuts 11.57 H Lymphocytes # (Manual) 1.07 L Total Abs Lymphocytes 1.07 L Monocytes # (Manual) 0.61 H Basophils # (Manual) 0.15 Metamyelocytes # (Man) 1.22 H Myelocytes # (Manual) 0.46 H Promyelocytes # (Man) 0.15 H Polychromasia 2+ Heparin Anti-Xa, Unfract 0.91 H* Sodium 132 L Potassium 4.0 Chloride 100 Carbon Dioxide 25 Anion Gap 7 BUN 27 H Creatinine 0.96 Est Cr Clr Drug Dosing 66.2 eGFR 62.09 BUN/Creatinine Ratio 28.1 H Glucose 139 H Calcium 7.7 L Phosphorus 3.5 Magnesium 2.0 Total Bilirubin 2.1 H AST 22 ALT 14 Alkaline Phosphatase 45 Total Protein 5.7 L Albumin 3.0 L Globulin 2.7 Albumin/Globulin Ratio 1.1
[2024-11-14] MEDS: METOPROLOL SUCC 50MG EXT REL TAB PO ONE (12:25)
[2024-11-14 15:24] LABS: ANTI-Xa, UFH(UnfractionatedHep 0.35 IU/ml (0.3-0.7)
[2024-11-14] MEDS: WARFARIN SOD 5 MG TAB PO SCH (18:18)
[2024-11-14] MEDS: METOPROLOL SUCC 25MG EXT REL TAB PO SCH (20:35)
[2024-11-15 06:12] LABS: Hematocrit (blood only) 24.5 % (37.0-47.0); Hemoglobin 8.3 g/dl (12.0-16.0); Mean Corpuscular Hemoglobin 31.2 pg (25.0-34.0); Mean Corpuscular Hgb Conc 33.9 g/dL (32.0-36.0); Mean Corpuscular Volume 92.1 fL (80.0-100.0); Mean Platelet Volume 10.2 fL (9.4-12.4); Nucleated RBC # (auto) 0.68 K/uL (0.00-0.12); Nucleated RBC % (auto) 3.9 %; Platelet Count 186 K/uL (130-400); RDW Coefficient of Variation 20.7 % (11.5-14.5); RDW Standard Deviation 49.7 fL (36.4-46.3); Red Blood Count 2.66 M/uL (4.20-5.40); White Blood Count 17.31 K/ul (4.8-10.8)
[2024-11-15 06:21] LABS: Albumin Globulin Ratio 1.2 (0.9-2); BUN Creatinine Ratio 27.4 (10-20); Bilirubin,Total 2.3 mg/dl (0.2-1.0); Calcium 7.8 mg/dl (8.6-10.3); Creatinine Clr Calc Pharmacy 66.9 ml/min; Globulin 2.6 gm/dl (2.5-4.0); Potassium 3.5 mmol/L (3.5-5.1); Total Protein 5.6 gm/dl (6.0-8.3)
[2024-11-15 06:35] LABS: ANTI-Xa, UFH(UnfractionatedHep 0.36 IU/ml (0.3-0.7); INR 1.1 (0.9-1.1); Prothrombin Time 11.4 Seconds (9.0-12.0)
[2024-11-15] MEDS: HYDROCORTISONE SOD 50 MG in SYRINGE 0 ML IV SCH (07:34)
[2024-11-15 07:54] LABS: ALC (manual) 2.25 K/uL (1.2-3.4); Blast # (manual) 0.17 K/uL (0-0); Blast Cells % (manual) 1 %; Lymphocytes # (manual) 2.25 K/uL (1.2-3.4); Lymphocytes % (manual) 13 %; Metamyelocytes # (manual) 0.87 K/uL (0-0); Metamyelocytes % (manual) 5 %; Monocytes # (manual) 1.21 K/uL (0.11-0.59); Monocytes % (manual) 7 %; Myelocytes # (manual) 1.21 K/uL (0-0); Myelocytes % (manual) 7 %; Neutrophils % (manual) 67 %
--- NOTE | 2024-11-15 08:56 | XRay Report ---
EXAM: XR chest 1V portable CLINICAL HISTORY: Hypoxia TECHNIQUE: An X-ray image of the chest is obtained in AP portable projection. COMPARISON: Prior CR 11/08/2024 FINDINGS: Pulmonary Parenchyma: Prominent bilateral bronchovascular markings, diffuse bilateral interstitial reticulations. (Unchanged). Prominent right hilar shadow. (New) No evidence of consolidation, collapse, or focal opacities. No pulmonary nodules are identified. Obliterated both costophrenic angles; minimal bilateral pleural effusion Heart and Mediastinum: Mild cardiomegaly. No mediastinal widening or masses. No hilar or mediastinal lymphadenopathy. Bony Thorax: Bony thorax appears intact without fractures or deformities. Soft Tissues: Soft tissues overlying the chest wall are unremarkable. IMPRESSION: 1. Prominent bilateral bronchovascular markings and diffuse bilateral interstitial reticulations. (Unchanged). 2. Prominent right hilar shadow. ( New). 3. Minimal bilateral pleural effusion. ( Unchanged) 4. Mild cardiomegaly. (Unchanged). 5. Clinical correlation is advised. Electronically signed by Tyler Grey 11-15-2024 08:55 AM
--- NOTE | 2024-11-15 11:22 | Cardiology Progress Note ---
Date of Service November 15, 2024 Assessment & Plan (1) Severe mitral insufficiency: (2) Mitral stenosis: (3) Aortic stenosis: (4) Chronic heart failure with preserved ejection fraction: (5) Severe pulmonary hypertension: (6) Atrial fibrillation: (7) Closed fracture of left hip: (8) Acute blood loss anemia: Plan 74-year-old female admitted with hip fracture status post repair suffering postoperative anemia and hypovolemic shock. Hemodynamics have improved although remains borderline hypotensive. Rate controlled atrial fibrillation on telemetry. IV heparin infusion without signs of ongoing blood loss. Recommendations: * Give 25 mg oral metoprolol succinate now (Patient did not receive a.m. dose of metoprolol due to hold parameters). * Metoprolol hold parameters adjusted for systolic blood pressure less than 90 mmHg. * IV heparin bridge for oral warfarin given valvular heart disease. * Goal INR 2.0-3.0. * Wean/discontinue midodrine as tolerated. * Wean off hydrocortisone. * Continue telemetry monitoring. * Maintain serum hemoglobin greater than 8.0 g/dL Jame Acevedo DO [facility] Admission and Anticipated Discharge Date Admission Date: November 06, 2024 Subjective 74-year-old female seen and examined at the bedside. Feeling better today. Denies chest pain or shortness of breath. Telemetry reveals atrial fibrillation in the 70s and 80s. IV heparin infusing. Remains on midodrine. Blood pressure persistently, mildly hypotensive. No lightheadedness or dizziness. Hemoglobin stable today at 8.3 g/dL. Review of Systems Review of Systems: All systems reviewed & are unremarkable except as noted in Subjective Physical Exam Constitutional: well nourished and + ill appearing; no acute distress Respiratory: normal respiratory effort Auscultation: + crackles (Left base); no rhonchi and no wheezes Cardiovascular: Rate/Rhythm: + irregularly irregular Heart Sounds: normal S1, normal S2 and + murmur (2/6 systolic ejection murmur heard best at the right second intercostal spa) Vessels: no JVD Extremities: no edema Gastrointestinal (Abdomen): Inspection/Auscultation: abdomen normal to inspection; abdomen not distended Percussion/Palpation: abdomen nontender and no guarding Neurologic: CN's II-XI intact bilaterally and moves all extremities; no focal motor deficits Results & Data Vital Signs (Past 12 Hours) Vital Signs Temp Pulse Resp BP Pulse Ox O2 Del Method 11/15/24 09:21 Room Air 11/15/24 08:00 37.0 C 78 18 92/52 L 94 Room Air 11/15/24 04:36 17 95/58 L 91 Room Air 11/14/24 23:32 36.6 C 88 18 95/53 L 91 Room Air Laboratory Results Cardiac Enzymes 11/15/24 Range/Units 05:49 AST 24 (13-39) U/L Coagulation 11/15/24 Range/Units 05:49 PT 11.4 (9.0-12.0) Seconds CBC 11/15/24 Range/Units 05:49 WBC 17.31 H (4.8-10.8) K/ul RBC 2.66 L (4.20-5.40) M/uL Hgb 8.3 L (12.0-16.0) g/dl Hct 24.5 L (37.0-47.0) % Plt Count 186 (130-400) K/uL Comprehensive Metabolic Panel 11/15/24 Range/Units 05:49 Sodium 133 L (136-145) mmol/L Potassium 3.5 (3.5-5.1) mmol/L Chloride 100 (98-107) mmol/L Carbon Dioxide 27 (21-32) mmol/L BUN 26 H (6-23) mg/dl Creatinine 0.95 (0.6-1.2) mg/dl Glucose 99 (70-99(Fasting)) mg/dl Calcium 7.8 L (8.6-10.3) mg/dl AST 24 (13-39) U/L ALT 17 (7-52) U/L Alkaline Phosphatase 45 (34-104) U/L Total Protein 5.6 L (6.0-8.3) gm/dl Albumin 3.0 L (3.4-5.0) gm/dl Intake and Output 11/14/24 11/15/24 11/15/24 22:59 06:59 14:59 Intake Total 205.75 / 711.00 177.5 / 711.00 Output Total 400 / 800 Balance 205.75 / -89.00 -222.5 / -89.00 Intake: IV 85.75 / 351.00 177.5 / 351.00 Heparin 23030 Unit/500 ml D5w 85.75 / 351.00 177.5 / 351.00 25,000 units In 500 ml @ 750 UNITS/HR 15 mls/hr IV .Q24H AFSHAN Rx#:[id number] Oral 120 / 360 Output: Urine Amount (Catheter) 400 / 800 External 400 / 800 Other: Weight 115 kg Weight Measurement Method Built in [facility] (2) Mitral stenosis Cardiac valve disease etiology: etiology unspecified Qualified Code(s): I05.0 - Rheumatic mitral stenosis (3) Aortic stenosis Cardiac valve disease etiology: etiology unspecified Qualified Code(s): I35.0 - Nonrheumatic aortic (valve) stenosis (6) Atrial fibrillation Atrial fibrillation type: unspecified Qualified Code(s): I48.91 - Unspecified atrial fibrillation (7) Closed fracture of left hip Encounter type: initial encounter Qualified Code(s): S72.002A - Fracture of unspecified part of neck of left femur, initial encounter for closed fracture
[2024-11-15] MEDS: METOPROLOL SUCC 25MG EXT REL TAB PO STA (12:14)
--- NOTE | 2024-11-15 13:13 | Hospitalist Progress Note ---
Date of Service November 15, 2024 Assessment & Plan (1) Closed left hip fracture: (2) Chronic heart failure with preserved ejection fraction: (3) Atrial fibrillation with controlled ventricular response: (4) Severe pulmonary hypertension: (5) Severe mitral valve stenosis: (6) Moderate mitral regurgitation: Plan 74-year-old female from [place] visiting [place] with past medical history significant for hypertension, CHF who is status post fall with left hip fracture, s/p ORIF on 11/07/24 with postop anemia and hypotension requiring transfer to the ICU. Hypotensive Shock Pt with postop hypotensive shock requiring transfer to the ICU Required vasopressor support x2 On midodrine 10mg TID, hydrocortisone and florinef for adrenal support- being weaned Home antihypertensives on hold Improving, downgraded from the ICU on 11/13 after off of pressors for some time On Toprol 25mg BID Continue to monitor Acute Blood Loss Anemia post op, requiring 3U pRBCs thus far CT abd/pelvis noting large hematoma Heparin previously on hold, has since been resumed with start of warfarin for valvular a fib. Hgb stable Continue to monitor Leukocytosis Has been elevated but downtrending Likely in setting of steroid use No current signs of infection Continue to monitor Atrial Fibrillation with RVR Has significant valvular heart disease with atrial fibrillation and increased ventricular rate Was on IV amiodarone to oral amio with plan to transition to BB once vasopressor weaned Anticoagulation previously on hold in the setting of acute blood loss anemia- heparin resumed Cardiology managing, appreciate recs Improving 11/14- INR on 11/07 1.3. started on warfarin today with heparin bridge. Will need close monitoring of H/H 11/15- continuing Toprol XL 25mg BID with warfarin and heparin bridge, hgb stable at 8.3 Significant valvular heart disease Has moderate aortic stenosis, severe mitral valve stenosis and moderate mitral regurgitation Severe pulmonary hypertension as well Echo will likely need valvular heart surgery will need to have follow-up appointments with Cardiac/Thoracic surgeon as an outpatient Chronic heart failure with preserved EF History of CHF No evidence of acute CHF during this admission However arms do appear swollen +5L this admission Closed left hip fracture Status post mechanical fall Orthopedics consulted, appreciate recs -s/p ORIF on 11/07/24 PT/OT Continue to monitor progress Diet: HH DVT prophylaxis: heparin Dispo: per PT/OT recs- recommending acute rehab Admission and Anticipated Discharge Date Admission Date: November 06, 2024 Subjective Pt was seen in the AM States she's tired, did not have a good night Review of Systems Review of Systems: All systems reviewed & are unremarkable except as noted in Subjective Physical Exam Physical Exam: General: Alert, oriented. No acute distress Psych: Appropriate mood and affect HEENT: NC/AT CV: Irregular, murmur appreciated Resp: Breath sounds clear bilaterally, no increased effort of breathing Abdomen: Soft, nontender Extremities: LLE with noted edema, able to move feet Results & Data Results & Data Vital Signs (Past 12 Hours) Vital Signs Temp Pulse Resp BP Pulse Ox O2 Del Method 11/15/24 09:21 Room Air 11/15/24 08:00 37.0 C 78 18 92/52 L 94 Room Air 11/15/24 04:36 17 95/58 L 91 Room Air
[2024-11-15] MEDS: MIDODRINE HCL 2.5 MG TAB PO SCH (17:27)
--- NOTE | 2024-11-15 20:05 | Orthopedic Progress Note ---
Date of Service November 15, 2024 Assessment & Plan (1) Closed left hip fracture: Plan: Findings discussed. Will communicate with hospitalist. I do not see any evidence of infection. I think that this is edema fluid leaking out through the incision. I do not feel a fluid collection. Will discuss with hospitalist whether fluid overload and diuresis is possible. May consider an incisional wound VAC. Will monitor. Admission and Anticipated Discharge Date Admission Date: November 06, 2024 Subjective Asked to see patient by hospitalist regarding incision. Patient reports no significant problems. Her health history is reviewed and noted. Physical Exam Physical Exam: She has not had any fevers. Her white blood cell count is 17,000 but is not been below normal since her admission. She is approximately 7 kg heavier than when she was admitted. She has swelling of both her arms and legs. Her lower 2 incisions are dry. Proximally she has serous drainage from the incision. Nothing that is directly active but the dressing is fairly well saturated. There are several small yellowish vesicles around the incision area and some other areas which could either be from ruptured blisters or tape. The small vesicles are blisters related to swelling. I do not feel any fluid collection I cannot express any fluid. There is no erythema and no purulence. Results & Data Vital Signs (Past 12 Hours) Vital Signs Temp Pulse Resp BP Pulse Ox O2 Del Method 11/15/24 19:41 36.5 C 80 17 93/53 L 91 Room Air 11/15/24 15:39 36.8 C 72 18 119/62 99 Room Air 11/15/24 11:00 36.9 C 88 20 109/56 L 96 Room Air 11/15/24 09:21 Room Air
[2024-11-15] MEDS: ADVANCED PROBIOTIC 625 MG CAPSULE PO SCH (20:25)
[2024-11-15] MEDS: cephALEXin 500 MG CAP PO SCH (20:27)
[2024-11-15] MEDS ORDERED: metroNIDAZOLE 500 MG TAB PO SCH (22:00)
[2024-11-16 06:19] LABS: Hematocrit (blood only) 24.5 % (37.0-47.0); Hemoglobin 8.2 g/dl (12.0-16.0); Mean Corpuscular Hemoglobin 31.7 pg (25.0-34.0); Mean Corpuscular Hgb Conc 33.5 g/dL (32.0-36.0); Mean Corpuscular Volume 94.6 fL (80.0-100.0); Mean Platelet Volume 10.3 fL (9.4-12.4); Nucleated RBC # (auto) 0.81 K/uL (0.00-0.12); Nucleated RBC % (auto) 4.6 %; Platelet Count 180 K/uL (130-400); RDW Coefficient of Variation 21.9 % (11.5-14.5); Red Blood Count 2.59 M/uL (4.20-5.40); White Blood Count 17.69 K/ul (4.8-10.8)
[2024-11-16 06:42] LABS: ALC (manual) 2.12 K/uL (1.2-3.4); ANC (manual) 12.21 K/uL (1.4-6.5); Anisocytosis Present; Blast # (manual) 0.18 K/uL (0-0); Blast Cells % (manual) 1 %; Lymphocytes # (manual) 2.12 K/uL (1.2-3.4); Lymphocytes % (manual) 12 %; Metamyelocytes # (manual) 1.59 K/uL (0-0); Metamyelocytes % (manual) 9 %; Monocytes # (manual) 1.06 K/uL (0.11-0.59); Monocytes % (manual) 6 %; Myelocytes # (manual) 0.53 K/uL (0-0); Myelocytes % (manual) 3 %; Neutrophils # (manual) 12.21 K/uL (1.40-6.50); Neutrophils % (manual) 69 %; Polychromasia 1+
[2024-11-16 06:47] LABS: INR 1.1 (0.9-1.1)
[2024-11-16 06:49] LABS: Albumin Globulin Ratio 1.2 (0.9-2); BUN Creatinine Ratio 32.1 (10-20); Calcium 7.7 mg/dl (8.6-10.3); Creatinine Clr Calc Pharmacy 75.7 ml/min; Globulin 2.5 gm/dl (2.5-4.0); Phosphorus 3.1 mg/dl (2.5-4.9); Potassium 3.5 mmol/L (3.5-5.1); Total Protein 5.5 gm/dl (6.0-8.3)
--- NOTE | 2024-11-16 10:27 | XRay Report ---
Chest radiograph, one view History: Dyspnea. Comparison: November 15, 2024. Findings: Patient rotated to the right. Cardiac silhouette is prominent. This is unchanged. Central pulmonary vasculature is prominent. Mild diffuse increased reticular markings bilaterally with obscuration portions of the heart borders and hemidiaphragms. Poorly defined bilateral costophrenic angles. Pulmonary vascular clarity appears to be improved. Impression: Improving pulmonary vascular clarity with nonspecific mild diffuse increased reticular markings and likely bibasilar subsegmental atelectasis and small effusions. Suspect low-grade congestive heart failure. Pneumonia not excluded. Electronically signed by Tyler Cummings 11-16-2024 10:26 AM
[2024-11-16] MEDS: POTASSIUM CHLORIDE CRTAB 20 MEQ TABCR PO STA (11:28)
[2024-11-16] MEDS: FUROSEMIDE INJ 20 MG/2 ML VIAL IV ONE (11:28)
--- NOTE | 2024-11-16 11:40 | Orthopedic Progress Note ---
Date of Service November 16, 2024 Assessment & Plan (1) Closed left hip fracture: Plan: Dressing changed at shift change. Uncertain how much drainage she had at that point. Currently there is less drainage. Uncertain whether this is coming from some of the blisters or skin tears or the incision itself. The incision itself I did not see any active serous drainage today. We cleaned the area. There were several 3 mm blisters posterior. Areas where there has been some skin damage from tape superior and posterior. I do not see any purulence or significant drainage from the incision presently. I do not feel any fluctuance or fluid collections. And this is all from the superior incision. I went ahead and applied an incisional Prevena wound VAC. We stayed away from the open areas and blisters which were then covered with Optifoam. The 2 lower incisions were benign with no drainage erythema. Spoke with nurse about the Jennifer as well as Optifoam dressing changes daily. Switch from Medipore tape to paper tape if needed to protect skin. If appropriate diuresis may be helpful for her peripheral edema. Admission and Anticipated Discharge Date Admission Date: November 06, 2024
--- NOTE | 2024-11-16 11:54 | Cardiology Progress Note ---
Date of Service November 16, 2024 Assessment & Plan (1) Acute on chronic heart failure with preserved ejection fraction (HFpEF): (2) Severe mitral insufficiency: (3) Mitral stenosis: (4) Aortic stenosis: (5) Severe pulmonary hypertension: (6) Atrial fibrillation: (7) Closed fracture of left hip: (8) Acute blood loss anemia: Plan 74-year-old female admitted with hip fracture status post repair suffering postoperative anemia and hypovolemic shock. Now appears hypervolemic after fluid resuscitation and transfusion. Chest x-ray without evidence of vascular congestion bilateral pleural effusions. Edema on exam. Rate controlled atrial fibrillation on telemetry. IV heparin infusion without signs of ongoing blood loss. Recommendations: * IV diuresis with Lasix 20 mg twice daily. * Add potassium supplementation, KCl 20 mEq twice daily. * Monitor fluid balance, daily weight, GFR, and electrolytes. * Continue Toprol-XL 25 mg twice daily. * Metoprolol hold parameters adjusted for systolic blood pressure less than 90 mmHg. * IV heparin bridge for oral warfarin given valvular heart disease. * Goal INR 2.0-3.0. * Wean/discontinue midodrine as tolerated. * Wean off hydrocortisone. * Continue telemetry monitoring. * Maintain serum hemoglobin greater than 8.0 g/dL Jame Acevedo DO [facility] Admission and Anticipated Discharge Date Admission Date: November 06, 2024 Subjective 74-year-old female seen examined the bedside. Positive fluid balance noted since admission. Reports dyspnea this a.m. requiring resumption of supplemental oxygen. Denies orthopnea or PND. Telemetry reveals rate controlled atrial fibrillation. Chest x-ray demonstrates vascular congestion with bilateral pleural effusions (small). Review of Systems Review of Systems: All systems reviewed & are unremarkable except as noted in Subjective Physical Exam Constitutional: well nourished and + ill appearing; no acute distress Respiratory: normal respiratory effort; no respiratory distress, no labored breathing and no retractions Auscultation: + diminished lung sounds (Bases bilateral) and + crackles (Left base); no rales, no rhonchi and no wheezes Cardiovascular: Rate/Rhythm: + irregularly irregular Heart Sounds: normal S1, normal S2 and + murmur (2/6 systolic ejection murmur heard best at the right second intercostal spa) Vessels: no JVD Extremities: + edema (Mild lower extremity edema with stasis changes) Gastrointestinal (Abdomen): Inspection/Auscultation: abdomen normal to inspection and normal bowel sounds; abdomen not distended Pe rcussion/Palpation: abdomen nontender and no guarding Neurologic: CN's II-XI intact bilaterally and moves all extremities; no focal motor deficits Results & Data Vital Signs (Past 12 Hours) Vital Signs Temp Pulse Resp BP Pulse Ox O2 Del Method O2 Flow Rate 11/16/24 10:46 36.6 C 82 18 103/69 93 Nasal Cannula 1 11/16/24 07:09 36.5 C 84 18 115/75 91 Room Air 11/16/24 03:58 36.6 C 84 17 103/65 90 Room Air (3) Mitral stenosis Cardiac valve disease etiology: etiology unspecified Qualified Code(s): I05.0 - Rheumatic mitral stenosis (4) Aortic stenosis Cardiac valve disease etiology: etiology unspecified Qualified Code(s): I35.0 - Nonrheumatic aortic (valve) stenosis (6) Atrial fibrillation Atrial fibrillation type: unspecified Qualified Code(s): I48.91 - Unspecified atrial fibrillation (7) Closed fracture of left hip Encounter type: initial encounter Qualified Code(s): S72.002A - Fracture of unspecified part of neck of left femur, initial encounter for closed fracture
--- NOTE | 2024-11-16 12:55 | Hospitalist Progress Note ---
Date of Service November 16, 2024 Assessment & Plan (1) Closed left hip fracture: (2) Chronic heart failure with preserved ejection fraction: (3) Atrial fibrillation with controlled ventricular response: (4) Severe pulmonary hypertension: (5) Severe mitral valve stenosis: (6) Moderate mitral regurgitation: Plan 74-year-old female from [place] visiting [place] with past medical history significant for hypertension, CHF who is status post fall with left hip fracture, s/p ORIF on 11/07/24 with postop anemia and hypotension requiring transfer to the ICU. Closed left hip fracture Status post mechanical fall Orthopedics consulted, appreciate recs -s/p ORIF on 11/07/24 -concern for infection on 11/15-11/16: Ortho evaluated, not infection, concern for edema, wound vac placed On diuretics started by cardiology on 11/16/24 PT/OT- recommending acute rehab Continue to monitor progress Hypotension Hypotensive Shock Pt with postop hypotensive shock requiring transfer to the ICU Required vasopressor support x2 Was on midodrine 10mg TID, hydrocortisone and florinef for adrenal support- being weaned Home antihypertensives on hold Improving, downgraded from the ICU on 11/13 after off of pressors for some time On Toprol 25mg BID with hold parameters decreased Hydrocortisone being weaned, midodrine down to 5mg TID Pt now on diuretic from 11/16/24 Continue to monitor BP Atrial Fibrillation with RVR Has significant valvular heart disease with atrial fibrillation and increased ventricular rate Was on IV amiodarone, then transitioned to oral amiodarone before being discontinued. Pt was then started on Toprol Anticoagulation previously on hold in the setting of acute blood loss anemia- heparin resumed. Warfarin restarted with heparin bridge Cardiology consulted and managing, appreciate recs Improving 11/14- INR on 11/07 1.3. started on warfarin today with heparin bridge. Will need close monitoring of H/H 11/15- continuing Toprol XL 25mg BID with warfarin and heparin bridge, hgb sta ble at 8.3 11/16-hgb stable >8, INR still 1.1. Continue warfarin with heparin bridge Acute on Chronic heart failure with preserved EF Now with evidence of acute CHF during this admission Extremities swollen Seeping fluid out of surgical left hip wound Cardiology consulted, appreciate recs -started on IV Lasix 20mg BID on 11/16 Significant valvular heart disease Has moderate aortic stenosis, severe mitral valve stenosis and moderate mitral regurgitation Severe pulmonary hypertension as well Echo with EF 65-70%, mod LVH, LA severely dilated, mild to mod , mild MS, severe MR will likely need valvular heart surgery will need to have follow-up appointments with Cardiac/Thoracic surgeon as an outpatient Acute Blood Loss Anemia post op, requiring 3U pRBCs thus far CT abd/pelvis noting large hematoma Heparin previously on hold, has since been resumed with start of warfarin for valvular a fib. Hgb stable Continue to monitor Leukocytosis Has been elevated Likely in setting of steroid use No current signs of infection Continue to monitor Diet: HH DVT prophylaxis: warfarin with heparin bridge Dispo: per PT/OT recs- recommending acute rehab Admission and Anticipated Discharge Date Admission Date: November 06, 2024 Subjective Pt was seen in the AM Sitting in bed Notes having some slight trouble breathing today Per nursing she is just requiring 1L Review of Systems Review of Systems: All systems reviewed & are unremarkable except as noted in Subjective Physical Exam Physical Exam: General: Alert, oriented. No acute distress Psych: Appropriate mood and affect HEENT: NC/AT CV: Irregular, murmur appreciated Resp: Breath sounds decreased bilaterally, no increased effort of breathing Abdomen: Soft, nontender Extremities: LE with noted edema, able to move feet Results & Data Results & Data Vital Signs (Past 12 Hours) Vital Signs Temp Pulse Resp BP Pulse Ox O2 Del Method O2 Flow Rate 11/16/24 10:46 36.6 C 82 18 103/69 93 Nasal Cannula 1 11/16/24 07:09 36.5 C 84 18 115/75 91 Room Air 11/16/24 03:58 36.6 C 84 17 103/65 90 Room Air
[2024-11-16] MEDS: FUROSEMIDE INJ 20 MG/2 ML VIAL IV SCH (20:13)
[2024-11-16] MEDS: POTASSIUM CHLORIDE CRTAB 20 MEQ TABCR PO SCH (20:17)
[2024-11-17 07:06] LABS: Hematocrit (blood only) 26.2 % (37.0-47.0); Hemoglobin 8.6 g/dl (12.0-16.0); Mean Corpuscular Hemoglobin 31.6 pg (25.0-34.0); Mean Corpuscular Hgb Conc 32.8 g/dL (32.0-36.0); Mean Corpuscular Volume 96.3 fL (80.0-100.0); Mean Platelet Volume 10.6 fL (9.4-12.4); Nucleated RBC # (auto) 0.46 K/uL (0.00-0.12); Nucleated RBC % (auto) 3.1 %; Platelet Count 164 K/uL (130-400); RDW Coefficient of Variation 24.1 % (11.5-14.5); RDW Standard Deviation 51.4 fL (36.4-46.3); Red Blood Count 2.72 M/uL (4.20-5.40); White Blood Count 14.67 K/ul (4.8-10.8)
[2024-11-17 07:28] LABS: Albumin Globulin Ratio 1.3 (0.9-2); BUN Creatinine Ratio 27.8 (10-20); Bilirubin,Total 2.1 mg/dl (0.2-1.0); Calcium 7.8 mg/dl (8.6-10.3); Creatinine Clr Calc Pharmacy 69.8 ml/min; Globulin 2.4 gm/dl (2.5-4.0); Magnesium 1.9 mg/dl (1.7-2.4); Potassium 3.7 mmol/L (3.5-5.1); Total Protein 5.4 gm/dl (6.0-8.3)
[2024-11-17 07:33] LABS: ANC (manual) 10.71 K/uL (1.4-6.5); Anisocytosis Present; Eosinophils # (manual) 0.15 K/uL (0-0.50); Eosinophils % (manual) 1 %; INR 1.1 (0.9-1.1); Lymphocytes % (manual) 15 %; Metamyelocytes # (manual) 0.73 K/uL (0-0); Metamyelocytes % (manual) 5 %; Monocytes # (manual) 0.44 K/uL (0.11-0.59); Monocytes % (manual) 3 %; Myelocytes # (manual) 0.44 K/uL (0-0); Myelocytes % (manual) 3 %; Neutrophils # (manual) 10.71 K/uL (1.40-6.50); Neutrophils % (manual) 73 %; Polychromasia 2+; Prothrombin Time 12.3 Seconds (9.0-12.0)
--- NOTE | 2024-11-17 10:10 | Orthopedic Progress Note ---
Date of Service November 17, 2024 Assessment & Plan (1) Closed left hip fracture: Plan: Afebrile. White count decreased to 15,000. Hematocrit 26. INR 1.1. Will have wound care nurse evaluate and assist. Her weight is down several kilos from its maximum indicating likely diuresis. Her postop CT does show hematoma which would be expected. A significant component of the drainage is coming from interstitial fluid through blisters and skin damage. Continue PT and OT. Check vitamin D and administer supplemental vitamin D as indicated. She is on heparin and Coumadin which will cover her for DVT prophylaxis. Admission and Anticipated Discharge Date Admission Date: November 06, 2024 Subjective Sitting at edge of bed and able to stand up. No significant problems reported. Physical Exam Physical Exam: The lower 2 incisions are dry. The incisional wound VAC is functioning properly with minimal fluid within the chamber. The Optifoam dressings around the surgical site are saturated. There is no erythema. Results & Data Vital Signs (Past 12 Hours) Vital Signs Temp Pulse Resp BP BP Pulse Ox O2 Del Method 11/17/24 08:13 36.7 C 88 18 103/68 96 Nasal Cannula 11/17/24 03:17 36.4 C L 74 18 89/59 L 97 Nasal Cannula 11/16/24 22:49 36.7 C 84 20 98/63 L 95 Nasal Cannula O2 Flow Rate 11/17/24 08:13 1 11/17/24 03:17 1.0 11/16/24 22:49 1.0 Laboratory Results Laboratory Results WBC 14.67 K/ul (4.8-10.8) H 11/17/24 06:24 RBC 2.72 M/uL (4.20-5.40) L 11/17/24 06:24 Hgb 8.6 g/dl (12.0-16.0) L 11/17/24 06:24 POC Hgb 7.1 g/dl (12.0-16.0) L 11/08/24 04:19 Hct 26.2 % (37.0-47.0) L 11/17/24 06:24 POC Hct 21 % (37-47) L 11/08/24 04:19 MCV 96.3 fL (80.0-100.0) 11/17/24 06:24 MCH 31.6 pg (25.0-34.0) 11/17/24 06:24 MCHC 32.8 g/dL (32.0-36.0) 11/17/24 06:24 RDW Std Deviation 51.4 fL (36.4-46.3) H 11/17/24 06:24 RDW Coeff of Gifty 24.1 % (11.5-14.5) H 11/17/24 06:24 Plt Count 164 K/uL (130-400) 11/17/24 06:24 MPV 10.6 fL (9.4-12.4) 11/17/24 06:24 Immature Gran % (Auto) 9.2 % 11/13/24 04:46 Neut % (Auto) 71.8 % 11/13/24 04:46 Lymph % (Auto) 11.2 % 11/13/24 04:46 [place] % (Auto) 7.4 % 11/13/24 04:46 Eos % (Auto) 0.1 % 11/13/24 04:46 Baso % (Auto) 0.3 % 11/13/24 04:46 Neut # (Auto) 7.79 K/uL (1.40-6.50) H 11/13/24 04:46 Lymph # (Auto) 1.22 K/uL (1.20-3.40) 11/13/24 04:46 [place] # (Auto) 0.80 K/uL (0.11-0.59) H 11/13/24 04:46 Eos # (Auto) 0.01 K/uL (0.00-0.50) 11/13/24 04:46 Baso # (Auto) 0.03 K/uL (0.00-0.20) 11/13/24 04:46 Immature Gran # (Auto) 1.00 K/uL (0.01-0.20) H 11/13/24 04:46 Absolute Nucleated RBC 0.46 K/uL (0.00-0.12) H 11/17/24 06:24 Nucleated RBC % (auto) 3.1 % 11/17/24 06:24 Neutrophils % (Manual) 73 % 11/17/24 06:24 Lymphocytes % (Manual) 15 % 11/17/24 06:24 Monocytes % (Manual) 3 % 11/17/24 06:24 Eosinophils % (Manual) 1 % 11/17/24 06:24 Basophils % (Manual) 1 % 11/14/24 04:38 Metamyelocytes % (Man) 5 % 11/17/24 06:24 Myelocytes % (Man) 3 % 11/17/24 06:24 Promyelocytes % (Man) 1 % 11/14/24 04:38 Blast Cells % (Manual) 1 % 11/16/24 05:52 Neutrophils # (Manual) 10.71 K/uL (1.40-6.50) H 11/17/24 06:24 Total Absolute Neuts 10.71 K/uL (1.4-6.5) H 11/17/24 06:24 Lymphocytes # (Manual) 2.20 K/uL (1.2-3.4) 11/17/24 06:24 Total Abs Lymphocytes 2.20 K/uL (1.2-3.4) 11/17/24 06:24 Monocytes # (Manual) 0.44 K/uL (0.11-0.59) 11/17/24 06:24 Eosinophils # (Manual) 0.15 K/uL (0-0.50) 11/17/24 06:24 Basophils # (Manual) 0.15 K/uL (0-0.2) 11/14/24 04:38 Metamyelocytes # (Man) 0.73 K/uL (0-0) H 11/17/24 06:24 Myelocytes # (Manual) 0.44 K/uL (0-0) H 11/17/24 06:24 Promyelocytes # (Man) 0.15 K/uL (0-0) H 11/14/24 04:38 Blast Cells # (Man) 0.18 K/uL (0-0) H 11/16/24 05:52 Platelet Estimate Decreased (Normal) L 11/09/24 04:09 RBC Morphology Unremarkable 11/08/24 04:27 Polychromasia 2+ 11/17/24 06:24 Basophilic Stippling 1+ 11/13/24 04:46 Anisocytosis Present 11/17/24 06:24 Tear Drop Cells 2+ 11/13/24 04:46 PT 12.3 Seconds (9.0-12.0) H 11/17/24 06:24 INR 1.1 (0.9-1.1) 11/17/24 06:24 APTT 28 Seconds (21-31) 11/07/24 18:42 PTT Ratio 1.0 11/07/24 18:42 Heparin Anti-Xa, Unfract 0.30 IU/ml (0.3-0.7) 11/17/24 06:24 Specimen Type Arterial 11/08/24 04:19 Sample Site Art Line 11/08/24 04:19 POC pH 7.36 (7.35-7.45) 11/08/24 04:19 POC pCO2 38 mmHg (35-46) 11/08/24 04:19 POC pO2 21 mmHg (80-95) L 11/08/24 04:19 POC HCO3 22 john/L (19-24) 11/08/24 04:19 POC Total CO2 23 mmol/L (24-31) L 11/08/24 04:19 POC Base Excess -4.0 john/L (-9-1.8) 11/08/24 04:19 O2 Sat Pulse Oximetry 100 11/08/24 04:19 ABG pH (Temp Correct) 7.364 (7.35-7.45) 11/08/24 04:19 ABG pCO2 (Temp Corrct 38 mmHg (35-46) 11/08/24 04:19 POC ABG pO2 at Pt Temp 20 11/08/24 04:19 POC ABG O2 Sat 33.0 % (90-95) L 11/08/24 04:19 Moe Test NA 11/08/24 04:19 O2 Delivery Device Cannula 11/08/24 04:19 POC Sodium 138 mmol/L (135-144) 11/08/24 04:19 Sodium 135 mmol/L (136-145) L 11/17/24 06:24 POC Potassium 3.7 mmol/L (3.3-5.0) 11/08/24 04:19 Potassium 3.7 mmol/L (3.5-5.1) 11/17/24 06:24 Chloride 102 mmol/L (98-107) 11/17/24 06:24 Carbon Dioxide 26 mmol/L (21-32) 11/17/24 06:24 Anion Gap 7 (3-11) 11/17/24 06:24 BUN 25 mg/dl (6-23) H 11/17/24 06:24 Creatinine 0.90 mg/dl (0.6-1.2) 11/17/24 06:24 Est Cr Clr Drug Dosing 69.8 ml/min 11/17/24 06:24 eGFR 67.08 11/17/24 06:24 BUN/Creatinine Ratio 27.8 (10-20) H 11/17/24 06:24 Glucose 103 mg/dl (70-99(Fasting)) H 11/17/24 06:24 Estimat Average Glucose 100 mg/dl 11/07/24 05:44 Hemoglobin A1c 5.1 % (4.5-5.6) 11/07/24 05:44 Lactate 1.4 mmol/L (0.4-2.0) 11/08/24 04:27 Calcium 7.8 mg/dl (8.6-10.3) L 11/17/24 06:24 Ionized Calcium 1.14 mmol/L (1.12-1.32) 11/11/24 03:59 Phosphorus 3.0 mg/dl (2.5-4.9) 11/17/24 06:24 Magnesium 1.9 mg/dl (1.7-2.4) 11/17/24 06:24 Total Bilirubin 2.1 mg/dl (0.2-1.0) H 11/17/24 06:24 AST 30 U/L (13-39) 11/17/24 06:24 ALT 27 U/L (7-52) 11/17/24 06:24 Alkaline Phosphatase 47 U/L (34-104) 11/17/24 06:24 Total Protein 5.4 gm/dl (6.0-8.3) L 11/17/24 06:24 Albumin 3.0 gm/dl (3.4-5.0) L 11/17/24 06:24 Globulin 2.4 gm/dl (2.5-4.0) L 11/17/24 06:24 Albumin/Globulin Ratio 1.3 (0.9-2) 11/17/24 06:24 Impressions Hip/Pelvis X-Ray 11/06/24 20:00 Exam(s): XR HIP + PELVIS, 1 view EXAM: XR Left Hip With Pelvis When Performed, 2 or 3 Views CLINICAL HISTORY: Reason for exam: Hip fracture. TECHNIQUE: Two or three views of the left hip with pelvis when performed. COMPARISON: No relevant prior studies available. IMPRESSION: Limited views. There is an acute intertrochanteric fracture of the proximal left femur with mild displacement. Advanced degenerative arthropathy is noted at the left hip joint. 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 Fluoroscopy time: 4 minutes and 41 seconds. Number of fluoroscopic images: 6. Ka,r: 87.18 mGy. FINDINGS: Fluoroscopy was provided during open reduction and internal fixation of the intertrochanteric fracture of the left femur with trochanteric nail. Fracture alignment has improved. Distal screws are present. Linear radiodensities project over the operative bed are likely on the patient. Severe left hip osteoarthritis incidentally noted. IMPRESSION: Fluoroscopy provided during open reduction and internal fixation of the intertrochanteric fracture of the left femur. ACT 112: Negative or not required by law. Electronically signed by: Wilfredo Corbett M.D. 11/08/2024 12:[address] 11/08/24 11:21 EXAM: CT Pelvis With Intravenous Contrast INDICATION: Rule out bleed TECHNIQUE: Axial computed tomography images of the pelvis with intravenous contrast. Sagittal and coronal reformatted images were created and reviewed. This CT exam was performed using one or more of the following dose reduction techniques: automated exposure control, adjustment of the mA and/or kV according to patient size, and/or use of iterative reconstruction technique. CONTRAST: 94ml of Optiray 320 was administered intravenously. COMPARISON: No relevant prior studies available. FINDINGS: Bowel: No abnormality noted. No obstruction. No mucosal thickening. Appendix: No findings to suggest acute appendicitis. Intraperitoneal space: No free air. No significant fluid collection. Bladder: No filling defects to suggest mass or large stone. No inflammation. Reproductive: No significant abnormality noted. Bones/joints: There is an acute intertrochanteric fracture of the left femur with slight displacement. Long femoral nail with proximal and distal locking hardware well-seated and intact. Severe degenerative change of the left hip noted. Soft tissues: Large irregular subcutaneous hematoma extends from the level of the upper aspect of the left gluteal musculature to the lateral skin surface inferiorly tracking within and along the gluteal musculature predominantly in the subcutaneous fat terminating posterior level of the proximal femoral shaft. Moderate amounts of associated gas present. The skin surface is not completely included. There are areas of acute hemorrhage in the lateral aspect of the hematoma (see images series 6 [id number]. Most confluent area of hematoma measures maximal transverse diameter of 10 cm, AP diameter of 8.1 cm. Maximum length is roughly 17.4 cm. There is generalized subcutaneous contusion and gas. There is gas along the gluteal musculature. There is subcutaneous edema and scattered gas along the lateral aspect of the femur. Vasculature: No abnormality noted. No lower abdominal aortic aneurysm. Lymph nodes: No abnormality noted. No enlarged lymph nodes. IMPRESSION: 1. Large predominantly subcutaneous but partially gluteal hematoma with areas of active bleeding as above. There is generalized edema of the left lower extremity. 2. Internally fixed acute fracture of the intertrochanteric left femur. ACT 112: N/A Electronically signed by Ana Paula Stock 11-08-2024 13:[address] 11/08/24 11:21 EXAM: CT Pelvis With Intravenous Contrast INDICATION: Evaluate for bleeding TECHNIQUE: Axial computed tomography images of the pelvis with intravenous contrast. Sagittal and coronal reformatted images were created and reviewed. This CT exam was performed using one or more of the following dose reduction techniques: automated exposure control, adjustment of the mA and/or kV according to patient size, and/or use of iterative reconstruction technique. CONTRAST: 94ml of Optiray 320 was administered intravenously. COMPARISON: No relevant prior studies available. FINDINGS: Bones/joints: There is an acute nondisplaced fracture of the posterior aspect of the left inferior pubic ramus. There is an acute intertrochanteric fracture of the left femur with lateral displacement. Long femoral nail with proximal locking bolt well-seated and intact. Severe primary osteoarthritic change of the left hip noted. Soft tissues: There is diffuse subcutaneous contusion and hematoma beginning at the level of the upper gluteal musculature and partially involving the anterior gluteal muscular mass. Extensive subcutaneous gas noted. Areas of acute hemorrhage noted in the lateral aspect of the hematoma (series 4 images [id number] 20). Bladder: No filling defects to suggest mass or large stone. No inflammation. IMPRESSION: 1. Acute intertrochanteric fracture of the left femur with the visualized portion of the internal fixation hardware intact and well-seated. 2. Large predominantly subcutaneous hematoma from the upper left gluteal region to the proximal posterior left femur with areas of active bleeding as above. 3. There is an acute nondisplaced fracture of the posterior aspect of the left inferior pubic ramus. ACT 112: N/A Electronically signed by Ana Paula Stock 11-08-2024 2:02 PM Abdomen/Pelvis CT 11/08/24 11:26 EXAM: CT Abdomen and Pelvis With Intravenous Contrast INDICATION: Evaluate for bleeding TECHNIQUE: Axial computed tomography images of the abdomen and pelvis with intravenous contrast. Sagittal and coronal reformatted images were created and reviewed. This CT exam was performed using one or more of the following dose reduction techniques: automated exposure control, adjustment of the mA and/or kV according to patient size, and/or use of iterative reconstruction technique. CONTRAST: 93 ml of Optiray 320 was administered intravenously. COMPARISON: No relevant prior studies available. FINDINGS: Limitations: Portions of the right subcostal chest wall and upper abdominal wall not included. Lung bases and pleural space: Heart: Cardiomegaly. Small pericardial effusion noted. Dense mitral annular calcification is noted. Mediastinum: No abnormality noted. ABDOMEN: Liver: Normal size and contour. Hypodense typical of steatosis. No mass or ductal dilation. Gallbladder and bile ducts: Cholecystectomy. No ductal dilation or stone noted. Pancreas: Homogeneous enhancement. No mass, inflammation or ductal dilation. Spleen: No significant abnormality noted. Adrenals: Mild bilateral thickening. No measurable mass. Kidneys and ureters: There is a ill-defined hypodense area in the left renal midpole measuring approximately 2.7 x 1.4 x 0.9 cm. The right kidney appears normal. Stomach and bowel: No distension or mucosal thickening. No inflammation noted. PELVIS: Appendix: No findings to suggest acute appendicitis. Bladder: Gutierrez balloon inflated in the bladder which is collapsed and cannot be assessed. Reproductive: No abnormalities noted. ABDOMEN and PELVIS: Intraperitoneal space: No free air. No significant fluid collection. Bones/joints: Acute internally fixed left intertrochanteric femoral fracture noted. Degenerative changes present throughout the spine. There is moderate to severe degenerative change of the hips left greater than right. Soft tissues: There is a large hematoma and gas collection extending from the upper aspect of the left gluteal musculature tapering to the level of the proximal femur measuring maximal transverse dimension at the most confluent point of 11.9 cm in AP diameter of 7.3 cm. There is a small focus of acute hemorrhage in the lateral aspect of the hematoma at the level of the supra-acetabular iliac bone series 3 image 257/367. There is generalized surrounding subcutaneous contusion. Vasculature: Atherosclerotic calcification of the aorta and branches. No aneurysm. Lymph nodes: No pathologically enlarged lymph nodes. IMPRESSION: 1. Large subcutaneous hematoma extending from the upper left gluteal region to the proximal posterior left femur as above with small focus of acute hemorrhage in the lateral aspect of the hematoma. 2. Small bilateral pleural effusions and dependent atelectasis. 3. Ill-defined hypodensity left kidney could be a mass or a hyperdense cyst. Sonographic assessment is recommended when able.
--- NOTE | 2024-11-17 11:14 | Hospitalist Progress Note ---
Date of Service November 17, 2024 Assessment & Plan (1) Closed left hip fracture: (2) Chronic heart failure with preserved ejection fraction: (3) Atrial fibrillation with controlled ventricular response: (4) Severe pulmonary hypertension: (5) Severe mitral valve stenosis: (6) Moderate mitral regurgitation: Plan 74-year-old female from [place] visiting [place] with past medical history significant for hypertension, CHF who is status post fall with left hip fracture, s/p ORIF on 11/07/24 with postop anemia and hypotension requiring transfer to the ICU. Closed left hip fracture Status post mechanical fall Orthopedics consulted, appreciate recs -s/p ORIF on 11/07/24 -concern for infection on 11/15-11/16: Ortho evaluated, not infection, concern for edema, wound vac placed On diuretics started by cardiology on 11/16/24 PT/OT- recommending acute rehab Continue to monitor progress Hypotension Hypotensive Shock Pt with postop hypotensive shock requiring transfer to the ICU Required vasopressor support x2 Was on midodrine 10mg TID, hydrocortisone and florinef for adrenal support- being weaned Home antihypertensives on hold Improving, downgraded from the ICU on 11/13 after off of pressors for some time On Toprol 25mg BID with hold parameters decreased Hydrocortisone being weaned, midodrine down to 5mg TID Pt now on diuretic from 11/16/24 Continue to monitor BP Improving Atrial Fibrillation with RVR Has significant valvular heart disease with atrial fibrillation and increased ventricular rate Was on IV amiodarone, then transitioned to oral amiodarone before being discontinued. Pt was then started on Toprol Anticoagulation previously on hold in the setting of acute blood loss anemia- heparin resumed. Warfarin restarted with heparin bridge Cardiology consulted and managing, appreciate recs Improving 11/14- INR on 11/07 1.3. started on warfarin today with heparin bridge. Will need close monitoring of H/H 11/15- continuing Toprol XL 25mg BID with warfarin and heparin bridge, hgb stable at 8.3 11/16-hgb stable >8, INR still 1.1. Continue warfarin with heparin bridge 11/17- hgb stable at 8.6, INR 1.1 but noted PT of 12.3. Given hematoma and severe bleed hx will defer on additional extra warfarin doses at this time. Continue warfarin with hep bridge. Continue to monitor INR Acute on Chronic heart failure with preserved EF Hypoxia Now with evidence of acute CHF during this admission Extremities swollen Seeping fluid out of surgical left hip wound Cardiology consulted, appreciate recs -started on IV Lasix 20mg BID on 11/16 Wean oxygen as tolerated Significant valvular heart disease Has moderate aortic stenosis, severe mitral valve stenosis and moderate mitral regurgitation Severe pulmonary hypertension as well Echo with EF 65-70%, mod LVH, LA severely dilated, mild to mod , mild MS, severe MR will likely need valvular heart surgery will need to have follow-up appointments with Cardiac/Thoracic surgeon as an outpatient Acute Blood Loss Anemia post op, requiring 3U pRBCs thus far CT abd/pelvis noting large hematoma Heparin previously on hold, has since been resumed with start of warfarin for valvular a fib. Hgb stable Continue to monitor Leukocytosis Has been elevated Likely in setting of steroid use No current signs of infection Continue to monitor Diet: HH DVT prophylaxis: warfarin with heparin bridge Dispo: per PT/OT recs- recommending acute rehab Admission and Anticipated Discharge Date Admission Date: November 06, 2024 Subjective Pt was seen in the AM Notes she worked with PT and the pain was much less Review of Systems Review of Systems: All systems reviewed & are unremarkable except as noted in Subjective Physical Exam Physical Exam: General: Alert, oriented. No acute distress Psych: Appropriate mood and affect HEENT: NC/AT CV: Irregular, murmur appreciated Resp: Breath sounds decreased bilaterally, no increased effort of breathing Abdomen: Soft, nontender Extremities: LE with noted edema, able to move feet Results & Data Results & Data Vital Signs (Past 12 Hours) Vital Signs Temp Pulse Pulse Resp BP Pulse Ox O2 Del Method 11/17/24 10:35 Nasal Cannula 11/17/24 08:13 36.7 C 88 18 103/68 96 Nasal Cannula 11/17/24 08:00 84 11/17/24 03:17 36.4 C L 74 18 89/59 L 97 Nasal Cannula O2 Flow Rate 11/17/24 10:35 1 11/17/24 08:13 1 11/17/24 08:00 11/17/24 03:17 1.0
[2024-11-17] MEDS: CHOLECALCIFEROL 125 MCG (5,000 UNITS) TAB PO SCH (12:22)
[2024-11-17] MEDS ORDERED: WARFARIN SOD 2.5 MG TAB PO STA (16:57)
--- NOTE | 2024-11-17 16:58 | Cardiology Progress Note ---
Date of Service November 17, 2024 Assessment & Plan (1) Acute on chronic heart failure with preserved ejection fraction (HFpEF): (2) Severe mitral insufficiency: (3) Mitral stenosis: (4) Aortic stenosis: (5) Severe pulmonary hypertension: (6) Atrial fibrillation: (7) Closed fracture of left hip: (8) Acute blood loss anemia: Plan 74-year-old female admitted with hip fracture status post repair suffering postoperative anemia and hypovolemic shock. Now appears hypervolemic after fluid resuscitation and transfusion. Chest x-ray without evidence of vascular congestion bilateral pleural effusions. Rate controlled atrial fibrillation on telemetry. IV heparin infusion without signs of ongoing blood loss. Recommendations: * Continue Lasix 20 mg IV twice daily. * Potassium supplementation, KCl 20 mEq twice daily. * Monitor fluid balance, daily weight, GFR, and electrolytes. * Continue Toprol-XL 25 mg twice daily. * Metoprolol hold parameters adjusted for systolic blood pressure less than 90 mmHg. * IV heparin bridge for oral warfarin given valvular heart disease. * Increase warfarin to 7.5 mg daily. Give additional 2.5 mg x 1 now. * Goal INR 2.0-3.0. * Wean/discontinue midodrine as tolerated. * Wean off hydrocortisone. * Continue telemetry monitoring. * Maintain serum hemoglobin greater than 8.0 g/dL Jame Acevedo DO, [facility] Admission and Anticipated Discharge Date Admission Date: November 06, 2024 Subjective 74-year-old female seen and examined at the bedside. Feeling better today. Fluid balance -2.3 L. Stable renal function. Telemetry feels atrial fibrillation 60s to 80s. INR remains subtherapeutic at 1.1. Review of Systems Review of Systems: All systems reviewed & are unremarkable except as noted in Subjective Physical Exam Constitutional: well nourished and + ill appearing; no acute distress Respiratory: normal respiratory effort; no respiratory distress, no labored breathing and no retractions Auscultation: + diminished lung sounds (Bases bilateral) and + crackles (Left base); no rales, no rhonchi and no wheezes Cardiovascular: Rate/Rhythm: + irregularly irregular Heart Sounds: normal S1, normal S2 and + murmur (2/6 systolic ejection murmur heard best at the right second intercostal spa) Vessels: no JVD Extremities: + edema (Mild lower extremity edema with stasis changes) Gastrointestinal (Abdomen): Inspection/Auscultation: abdomen normal to inspection and normal bowel sounds; abdomen not distended Percussion/Palpation: abdomen nontender and no guarding Neurologic: CN's II-XI intact bilaterally and moves all extremities; no focal motor deficits Results & Data Vital Signs (Past 12 Hours) Vital Signs Temp Pulse Pulse Resp BP Pulse Ox O2 Del Method 11/17/24 15:29 36.4 C L 92 H 18 101/71 95 Nasal Cannula 11/17/24 11:52 36.4 C L 85 16 89/60 L 95 Nasal Cannula 11/17/24 10:35 Nasal Cannula 11/17/24 08:13 36.7 C 88 18 103/68 96 Nasal Cannula 11/17/24 08:00 84 O2 Flow Rate 11/17/24 15:29 1 11/17/24 11:52 1 11/17/24 10:35 1 11/17/24 08:13 1 11/17/24 08:00 Laboratory Results Cardiac Enzymes 11/17/24 Range/Units 06:24 AST 30 (13-39) U/L Coagulation 11/17/24 Range/Units 06:24 PT 12.3 H (9.0-12.0) Seconds CBC 11/17/24 Range/Units 06:24 WBC 14.67 H (4.8-10.8) K/ul RBC 2.72 L (4.20-5.40) M/uL Hgb 8.6 L (12.0-16.0) g/dl Hct 26.2 L (37.0-47.0) % Plt Count 164 (130-400) K/uL Comprehensive Metabolic Panel 11/17/24 Range/Units 06:24 Sodium 135 L (136-145) mmol/L Potassium 3.7 (3.5-5.1) mmol/L Chloride 102 (98-107) mmol/L Carbon Dioxide 26 (21-32) mmol/L BUN 25 H (6-23) mg/dl Creatinine 0.90 (0.6-1.2) mg/dl Glucose 103 H (70-99(Fasting)) mg/dl Calcium 7.8 L (8.6-10.3) mg/dl AST 30 (13-39) U/L ALT 27 (7-52) U/L Alkaline Phosphatase 47 (34-104) U/L Total Protein 5.4 L (6.0-8.3) gm/dl Albumin 3.0 L (3.4-5.0) gm/dl Intake and Output 11/17/24 11/17/24 11/17/24 06:59 14:59 22:59 Intake Total 175 / 915 725.25 / 725.25 Output Total 1200 / 3201 850 / 850 Balance -1025 / -2286 -124.75 / -124.75 Intake: IV 375.25 / 375.25 Heparin 56607 Unit/500 ml D5w 375.25 / 375.25 25,000 units In 500 ml @ 750 UNITS/HR 15 mls/hr IV .Q24H [facility] Rx#:[id number] Oral 175 / 915 350 / 350 Output: Urine Amount (Catheter) 1200 / 3200 850 / 850 External 1200 / 3200 850 / 850 Other: Weight 112.7 kg 112.7 kg Weight Measurement Method Built in [facility] Patient Weight 11/18/24 06:59 Weight 112.7 kg (3) Mitral stenosis Cardiac valve disease etiology: etiology unspecified Qualified Code(s): I05.0 - Rheumatic mitral stenosis (4) Aortic stenosis Cardiac valve disease etiology: etiology unspecified Qualified Code(s): I35.0 - Nonrheumatic aortic (valve) stenosis (6) Atrial fibrillation Atrial fibrillation type: unspecified Qualified Code(s): I48.91 - Unspecified atrial fibrillation (7) Closed fracture of left hip Encounter type: initial encounter Qualified Code(s): S72.002A - Fracture of unspecified part of neck of left femur, initial encounter for closed fracture
[2024-11-17] MEDS: WARFARIN SOD 7.5 MG TAB PO SCH (18:30)
[2024-11-18 07:43] LABS: Hematocrit (blood only) 28.3 % (37.0-47.0); Hemoglobin 9.3 g/dl (12.0-16.0); Mean Corpuscular Hemoglobin 32.2 pg (25.0-34.0); Mean Corpuscular Hgb Conc 32.9 g/dL (32.0-36.0); Mean Corpuscular Volume 97.9 fL (80.0-100.0); Nucleated RBC # (auto) 0.35 K/uL (0.00-0.12); Nucleated RBC % (auto) 2.7 %; Platelet Count 168 K/uL (130-400); RDW Coefficient of Variation 25.7 % (11.5-14.5); RDW Standard Deviation 55.6 fL (36.4-46.3); Red Blood Count 2.89 M/uL (4.20-5.40); White Blood Count 13.15 K/ul (4.8-10.8)
[2024-11-18 07:59] LABS: Albumin Globulin Ratio 1.1 (0.9-2); BUN Creatinine Ratio 27.8 (10-20); Bilirubin,Total 2.3 mg/dl (0.2-1.0); Calcium 7.9 mg/dl (8.6-10.3); Creatinine Clr Calc Pharmacy 65.2 ml/min; Globulin 2.7 gm/dl (2.5-4.0); Magnesium 1.8 mg/dl (1.7-2.4); Phosphorus 2.9 mg/dl (2.5-4.9); Potassium 3.9 mmol/L (3.5-5.1); Total Protein 5.8 gm/dl (6.0-8.3)
[2024-11-18 08:00] LABS: Anisocytosis Present; Basophils # (auto) 0.05 K/uL (0.00-0.20); Basophils % (auto) 0.4 %; Eosinophils # (auto) 0.07 K/uL (0.00-0.50); Eosinophils % (auto) 0.5 %; Immature Granulocytes # (auto) 1.08 K/uL (0.01-0.20); Immature Granulocytes % (auto) 8.2 %; Lymphocytes # (auto) 1.67 K/uL (1.20-3.40); Lymphocytes % (auto) 12.7 %; Monocytes % (auto) 6.1 %; Neutrophils # (auto) 9.48 K/uL (1.40-6.50); Neutrophils % (auto) 72.1 %; Polychromasia 2+; Tear Drop Cells 1+
[2024-11-18 08:08] LABS: ANTI-Xa, UFH(UnfractionatedHep 0.31 IU/ml (0.3-0.7); INR 1.2 (0.9-1.1); Prothrombin Time 13.3 Seconds (9.0-12.0)
[2024-11-18] MEDS: HYDROCORTISONE SOD 50 MG in SYRINGE 0 ML IV SCH (08:57)
--- NOTE | 2024-11-18 08:57 | Orthopedic Progress Note ---
Date of Service November 18, 2024 Assessment & Plan (1) Closed left hip fracture: Plan: The patient was seen and examined. Her labs were reviewed. She is feeling more confident today. She was encouraged to get out of bed and participate with physical therapy. Importance of getting up and moving was discussed at length with her. Her wound VAC is functioning well. Her distal incisions are dry and there is no active oozing. Her tape blisters are covered with absorbent dressings. We will continue to follow while admitted. Admission and Anticipated Discharge Date Admission Date: November 06, 2024 Supervising Physician Co-Signing Physician Notes I, Dr. Fitch, saw and examined the patient and agree with the above findings and plan of care. She stated this is the best she has felt. Subjective This 74-year-old female is seen today in her room. She is currently sitting in bed. She states she has no pain today. She is looking forward to participating in physical therapy today. She feels the fluid in her legs has reduced enough that her skin does not feel tight. No additional complaints. She denies any excessive drainage from her wounds. Physical Exam Physical Exam: General: Well-developed, well-nourished, elderly female, sitting in her bed. Alert and oriented. Conversive. Skin: Warm and dry good turgor. Postsurgical incisions on the left thigh are healing well. Wounds are closed. She has no active bleeding. Dressings are dry. Wound VAC is in place. There is drainage in the tube but minimal in the container. Suction is adequate. Venous stasis changes are present in her lower legs. She still has postoperative edema in the thigh. No ecchymosis. Musculoskeletal: The patient has intact motor function to her left toes and ankle. She is able to press up on her forefoot to elevate the thigh. She cannot actively hip flex. She can extend and flex her knee without assistance. She still complains of discomfort with passive rotation as well as flexion of the left hip. Neurologic: Gross sensation is intact across left thigh, calf, and ankle. Peripheral pulses are 2+. Results & Data Vital Signs (Past 12 Hours) Vital Signs Temp Pulse Pulse Resp BP BP Pulse Ox 11/18/24 08:08 36.6 C 88 18 82/52 L 82/60 L 97 11/18/24 07:31 11/18/24 07:18 86 11/18/24 04:03 36.7 C 78 18 92/68 L 96 11/18/24 00:00 36.4 C L 85 20 90/56 L 95 11/17/24 23:29 94 H O2 Del Method O2 Flow Rate 11/18/24 08:08 Nasal Cannula 1 11/18/24 07:31 Nasal Cannula 1 11/18/24 07:18 11/18/24 04:03 Nasal Cannula 2 11/18/24 00:00 Nasal Cannula 1 11/17/24 23:29 Laboratory Results CBC obtained today shows a white count of 13.15. H&H of 9.3 and 28.3. Normal platelets at 168,000. INR of 1.2. Sodium 135, potassium 3.9. Chloride 100. BUN of 27 with creatinine 0.97. BUN is within her current baseline.
[2024-11-18] MEDS: POLYETHYLENE (MIRALAX) 17 GM PACK PO PRN (10:34)
--- NOTE | 2024-11-18 13:52 | Hospitalist Progress Note ---
Date of Service November 18, 2024 Assessment & Plan (1) Closed left hip fracture: Plan: 74-year-old female from [place] visiting [place] with past medical history significant for hypertension, CHF who is status post fall with left hip fracture, s/p ORIF on 11/07/24 with postop anemia and hypotension requiring transfer to the ICU. Closed left hip fracture Status post mechanical fall Orthopedics consulted, appreciate recs -s/p ORIF on 11/07/24 -concern for infection on 11/15-11/16: Ortho evaluated, not infection, concern for edema, wound vac placed On diuretics started by cardiology on 11/16/24 PT/OT- recommending acute rehab Appreciate reevaluation by the orthopedic surgeon regarding drainage from the surgical site Wound VAC has been placed and draining small amount of serous fluid Doubt any infection Hypotension Hypotensive Shock Pt with postop hypotensive shock requiring transfer to the ICU Required vasopressor support x2 Was on midodrine 10mg TID, hydrocortisone and florinef for adrenal support- being weaned Home antihypertensives on hold Improving, downgraded from the ICU on 11/13 after off of pressors for some time On Toprol 25mg BID with hold parameters decreased Hydrocortisone being weaned, midodrine down to 5mg TID Pt now on diuretic from 11/16/24 Still has occasional hypotension and she is off any pressor agents Has been on metoprolol succinate 25 mg twice daily and also midodrine for blood pressure support Acute Blood Loss Anemia post op, requiring 3U pRBCs thus far CT abd/pelvis noting large hematoma Heparin previously on hold, has since been resumed with start of warfarin for valvular a fib. Hgb stable Continue to monitor Hemoglobin remains stable at 9.3 (2) Chronic heart failure with preserved ejection fraction: Plan: Acute on Chronic heart failure with preserved EF Hypoxia Now with evidence of acute CHF during this admission Extremities swollen Seeping fluid out of surgical left hip wound Cardiology consulted, appreciate recs -started on IV Lasix 20mg BID on 11/16 Wean oxygen as tolerated Significant valvular heart disease Has moderate aortic stenosis, severe mitral valve stenosis and moderate mitral regurgitation Severe pulmonary hypertension as well Echo with EF 65-70%, mod LVH, LA severely dilated, mild to mod , mild MS, severe MR will likely need valvular heart surgery will need to have follow-up appointments with Cardiac/Thoracic surgeon as an outpatient (3) Atrial fibrillation with controlled ventricular response: Plan: Atrial Fibrillation with RVR Has significant valvular heart disease with atrial fibrillation and increased ventricular rate Was on IV amiodarone, then transitioned to oral amiodarone before being discontinued. Pt was then started on Toprol Anticoagulation previously on hold in the setting of acute blood loss anemia- heparin resumed. Warfarin restarted with heparin bridge Cardiology consulted and managing, appreciate recs Improving 11/14- INR on 11/07 1.3. started on warfarin today with heparin bridge. Will need close monitoring of H/H 11/15- continuing Toprol XL 25mg BID with warfarin and heparin bridge, hgb stable at 8.3 11/16-hgb stable >8, INR still 1.1. Continue warfarin with heparin bridge 11/17- hgb stable at 8.6, INR 1.1 but noted PT of 12.3. Given hematoma and severe bleed hx will defer on additional extra warfarin doses at this time. INR remains subtherapeutic at 1.2 Will continue Warferin at 7.5 mg daily and monitor INR (4) Severe pulmonary hypertension: (5) Severe mitral valve stenosis: (6) Moderate mitral regurgitation: Plan Leukocytosis Has been elevated Likely in setting of steroid use No current signs of infection Continue to monitor Diet: HH DVT prophylaxis: warfarin with heparin bridge Dispo: per PT/OT recs- recommending acute rehab Admission and Anticipated Discharge Date Admission Date: November 06, 2024 Subjective 11/07/2024 The patient was seen and examined in the telemetry unit She was admitted with a mechanical fall and fracture of the left hip Noted to have atrial fibrillation on admission Denies any chest pain and/or palpitation Complains pain in the left hip with any movement of the left lower extremity 11/08/2024 The patient was seen and examined in ICU She remains extremely weak and lethargic She has been on 2 pressor support now and has been started on intravenous amiodarone to control the heart rate Denies any chest pain and/or palpitation and does not have any shortness of breath at rest No abdominal pain nausea and/or vomiting 11/09/2024 The patient was seen and examined in ICU She has been feeling a little better following blood transfusion Feels tired otherwise denies any significant pain or other symptoms 11/10/2024 The patient was seen and examined in ICU She has been feeling much better and denies any significant symptoms No shortness of breath and no pain at rest 11/18/2024 The patient was seen and examined in telemetry unit She has been feeling much better but remains weak and lethargic Her blood pressure was noted to be low this morning with lower 80s without any symptoms at rest Complains of occasional dizziness with ambulation which has not been new symptoms for her Review of Systems Review of Systems: All systems reviewed and are unremarkable except as noted below Physical Exam Physical Exam: Lying in bed with minimal shortness of breath at rest and distress generally Constitutional: well developed, well nourished, + ill appearing and + obese Eyes: PERRL, conjunctivae normal, anicteric sclerae ENMT: external ear and nose normal, oropharynx normal Neck: trachea midline, no thyromegaly Respiratory: no respiratory distress Auscultation: lungs clear to auscultation bilaterally and + diminished lung sounds ( minimal crackles at the bases) Cardiovascular: Rate/Rhythm: + irregularly irregular; not tachycardic Heart Sounds: normal S1, normal S2 and + murmur Extremities: + edema (Trace edema bilaterally) Gastrointestinal (Abdomen): Inspection/Auscultation: normal bowel sounds; abdomen not distended Percussion/Palpation: abdomen soft; abdomen nontender Musculoskeletal: Left hip and upper thigh slightly swollen with serous drainage from the wound VAC placed at the surgery closure site Neurologic: normal touch/pain/proprioception and moves all extremities (Less movement with the left lower extremity due to fracture) Psychiatric: A+Ox3, euthymic affect Lymphatic: no cervical or axillary lymphadenopathy Results & Data Results & Data Vital Signs (Past 12 Hours) Vital Signs Temp Pulse Pulse Resp BP BP Pulse Ox 11/18/24 11:15 36.6 C 79 20 104/66 96 11/18/24 10:41 104/66 11/18/24 08:08 36.6 C 88 18 82/52 L 82/60 L 97 11/18/24 07:31 11/18/24 07:18 86 11/18/24 04:03 36.7 C 78 18 92/68 L 96 O2 Del Method O2 Flow Rate 11/18/24 11:15 Nasal Cannula 1 11/18/24 10:41 11/18/24 08:08 Nasal Cannula 1 11/18/24 07:31 Nasal Cannula 1 11/18/24 07:18 11/18/24 04:03 Nasal Cannula 2 Laboratory Results Short CBC 11/18/24 Range/Units 06:33 WBC 13.15 H (4.8-10.8) K/ul Hgb 9.3 L (12.0-16.0) g/dl Hct 28.3 L (37.0-47.0) % Plt Count 168 (130-400) K/uL BMP 11/18/24 06:33 Sodium 135 L Potassium 3.9 Chloride 100 Carbon Dioxide 28 BUN 27 H Creatinine 0.97 Glucose 102 H Calcium 7.9 L Liver Function 11/18/24 Range/Units 06:33 Total Bilirubin 2.3 H (0.2-1.0) mg/dl AST 32 (13-39) U/L ALT 34 (7-52) U/L Alkaline Phosphatase 52 (34-104) U/L Albumin 3.1 L (3.4-5.0) gm/dl Medications Administered Current Inpatient Medications Calcium Carbonate (Calcium Carbonate 1,250 Mg/5 Ml Udc) 1,250 mg PO BID [facility] Stop: 12/12/24 08:59 Last Admin: 11/18/24 08:57 Dose: 1,250 mg Furosemide (Furosemide Inj 20 Mg/2 Ml Vial) 20 mg IV BID [facility] Stop: 12/16/24 20:59 Last Admin: 11/18/24 13:13 Dose: 20 mg Hydromorphone HCl (Hydromorphone Inj 0.5 Mg/0.5 Ml Syr) 0.25 mg IV Q4H PRN PRN Reason: Pain (Scale 4-10) Stop: 11/20/24 23:15 Last Admin: 11/15/24 15:19 Dose: 0.25 mg Heparin Sodium/Dextrose (Heparin 28342 Unit/500 Ml D5w) 25,000 units in 500 mls @ 15 mls/hr IV .Q24H [facility]; Protocol Stop: 12/11/24 09:59 Last Admin: 11/18/24 11:41 Dose: 750 units/hr, 15 mls/hr Hydrocortisone Sodium (Succinate 50 mg/ Syringe) 1 mls @ 4 mls/min IV DAILY [facility] Stop: 12/18/24 08:59 Last Admin: 11/18/24 08:57 Dose: 4 mls/min Metoprolol Succinate (Metoprolol Succ 25mg Ext Rel Tab) 25 mg PO BID [facility] Stop: 12/14/24 20:59 Last Admin: 11/18/24 08:19 Dose: Not Given Midodrine (Midodrine Hcl 2.5 Mg Tab) 5 mg PO TID@0800,1200,1700 [facility] Stop: 12/15/24 16:59 Last Admin: 11/18/24 11:41 Dose: 5 mg Nitroglycerin (Nitroglycerin Sl 0.4 Mg/Tab Tab) 0.4 mg SL Q5M PRN PRN Reason: Chest Pain Stop: 12/06/24 23:15 Ondansetron HCl (Ondansetron Inj 2 Mg/Ml 2 Ml Vial) 4 mg IV Q6H PRN PRN Reason: Nausea And Vomiting Stop: 12/06/24 23:20 Last Admin: 11/14/24 00:06 Dose: 4 mg Oxycodone/Acetaminophen (Oxycodone/Acetaminophen 5mg/325mg Tab) 1 tab PO Q4H PRN PRN Reason: Pain Stop: 11/25/24 09:35 Last Admin: 11/17/24 21:09 Dose: 1 tab Pantoprazole Sodium (Pantoprazole 40 Mg Tab) 40 mg PO QAM [facility] Stop: 12/13/24 08:59 Last Admin: 11/18/24 08:19 Dose: 40 mg Polyethylene Glycol (Polyethylene (Miralax) 17 Gm Pack) 17 gm PO DAILY PRN PRN Reason: Constipation Stop: 12/06/24 23:15 Last Admin: 11/18/24 10:34 Dose: 17 gm Potassium Chloride (Potassium Chloride Crtab 20 Meq Tabcr) 20 meq PO BID [facility] Stop: 12/16/24 20:59 Last Admin: 11/18/24 08:18 Dose: 20 meq Vitamin D (Cholecalciferol 125 Mcg (5,000 Units) Tab) 125 mcg PO QAM [facility] Stop: 12/17/24 10:14 Last Admin: 11/18/24 08:19 Dose: 125 mcg Warfarin Sodium (Warfarin Sod 7.5 Mg Tab) 7.5 mg PO DAILY@1600 [facility] Stop: 12/17/24 17:14 Last Admin: 11/17/24 18:30 Dose: 7.5 mg
--- NOTE | 2024-11-18 13:56 | Cardiology Progress Note ---
Date of Service November 18, 2024 Assessment & Plan (1) Acute on chronic heart failure with preserved ejection fraction (HFpEF): (2) Severe mitral insufficiency: (3) Mitral stenosis: (4) Aortic stenosis: (5) Severe pulmonary hypertension: (6) Atrial fibrillation: (7) Closed fracture of left hip: (8) Acute blood loss anemia: Plan 74-year-old female admitted with hip fracture status post repair suffering postoperative anemia and hypovolemic shock. Hypervolemia noted status post transfusion of packed red blood cells and IV therapies. Volume status improved with IV furosemide. Rate controlled atrial fibrillation on telemetry. IV heparin infusion without signs of ongoing blood loss. Recommendations: * Discontinue IV furosemide. * Transition to oral torsemide 20 mg daily in a.m. 11/19/24. * Potassium supplementation, KCl 20 mEq twice daily. * Monitor fluid balance, daily weight, GFR, and electrolytes. * Continue Toprol-XL 25 mg twice daily. * Metoprolol hold parameters adjusted for systolic blood pressure less than 90 mmHg. * IV heparin bridge for oral warfarin given valvular heart disease. * Warfarin titrated to 7.5 mg daily 11/17/2024. * Goal INR 2.0-3.0. * Wean/discontinue midodrine as tolerated. * Wean off hydrocortisone. * Continue telemetry monitoring. * Maintain serum hemoglobin greater than 8.0 g/dL Jame Acevedo DO, [facility] Admission and Anticipated Discharge Date Admission Date: November 06, 2024 Subjective 74-year-old female seen and examined at bedside. Volume status improved with IV from, however, a.m. dose held today due to hypotension. Denies chest pain or palpitations. Telemetry reveals rate controlled atrial fibrillation however mildly elevated heart rates noted during activity. Review of Systems Review of Systems: All systems reviewed & are unremarkable except as noted in Subjective Physical Exam Constitutional: well nourished and + ill appearing; no acute distress Respiratory: normal respiratory effort; no respiratory distress, no labored breathing and no retractions Auscultation: + diminished lung sounds (Bases bilateral) and + crackles (Left base); no rales, no rhonchi and no wheezes Cardiovascular: Rate/Rhythm: + irregularly irregular Heart Sounds: normal S1, normal S2 and + murmur (2/6 systolic ejection murmur heard best at the right second intercostal spa) Vessels: no JVD Extremities: + edema (Mild lower extremity edema with stasis changes) Gastrointestinal (Abdomen): Inspection/Auscultation: abdomen normal to inspection and normal bowel sounds; abdomen not distended Percussion/Palpation: abdomen nontender and no guarding Neurologic: CN's II-XI intact bilaterally and moves all extremities; no focal motor deficits Results & Data Vital Signs (Past 12 Hours) Vital Signs Temp Pulse Pulse Resp BP BP Pulse Ox 11/18/24 11:15 36.6 C 79 20 104/66 96 11/18/24 10:41 104/66 11/18/24 08:08 36.6 C 88 18 82/52 L 82/60 L 97 11/18/24 07:31 11/18/24 07:18 86 11/18/24 04:03 36.7 C 78 18 92/68 L 96 O2 Del Method O2 Flow Rate 11/18/24 11:15 Nasal Cannula 1 11/18/24 10:41 11/18/24 08:08 Nasal Cannula 1 11/18/24 07:31 Nasal Cannula 1 11/18/24 07:18 11/18/24 04:03 Nasal Cannula 2 Laboratory Results Cardiac Enzymes 11/18/24 Range/Units 06:33 AST 32 (13-39) U/L Coagulation 11/18/24 Range/Units 06:33 PT 13.3 H (9.0-12.0) Seconds CBC 11/18/24 Range/Units 06:33 WBC 13.15 H (4.8-10.8) K/ul RBC 2.89 L (4.20-5.40) M/uL Hgb 9.3 L (12.0-16.0) g/dl Hct 28.3 L (37.0-47.0) % Plt Count 168 (130-400) K/uL Neut # (Auto) 9.48 H (1.40-6.50) K/uL Lymph # (Auto) 1.67 (1.20-3.40) K/uL [place] # (Auto) 0.80 H (0.11-0.59) K/uL Eos # (Auto) 0.07 (0.00-0.50) K/uL Baso # (Auto) 0.05 (0.00-0.20) K/uL Comprehensive Metabolic Panel 11/18/24 Range/Units 06:33 Sodium 135 L (136-145) mmol/L Potassium 3.9 (3.5-5.1) mmol/L Chloride 100 (98-107) mmol/L Carbon Dioxide 28 (21-32) mmol/L BUN 27 H (6-23) mg/dl Creatinine 0.97 (0.6-1.2) mg/dl Glucose 102 H (70-99(Fasting)) mg/dl Calcium 7.9 L (8.6-10.3) mg/dl AST 32 (13-39) U/L ALT 34 (7-52) U/L Alkaline Phosphatase 52 (34-104) U/L Total Protein 5.8 L (6.0-8.3) gm/dl Albumin 3.1 L (3.4-5.0) gm/dl Intake and Output 11/17/24 11/18/24 11/18/24 22:59 06:59 14:59 Intake Total 150 / 1290.25 415 / 1290.25 415.25 / 415.25 Output Total 100 / 1550 600 / 1550 Balance 50 / -259.75 -185 / -259.75 415.25 / 415.25 Intake: IV 415.25 / 415.25 Heparin 95228 Unit/500 ml D5w 415.25 / 415.25 25,000 units In 500 ml @ 750 UNITS/HR 15 mls/hr IV .[facility]H [facility] Rx#:[id number] Oral 150 / 915 415 / 915 Output: Urine Amount (Catheter) 100 / 1550 600 / 1550 External 100 / 1550 600 / 1550 Other: # Unmeasured Voids 1 Weight 114.1 kg Weight Measurement Method Built in [facility] (3) Mitral stenosis Cardiac valve disease etiology: etiology unspecified Qualified Code(s): I05.0 - Rheumatic mitral stenosis (4) Aortic stenosis Cardiac valve disease etiology: etiology unspecified Qualified Code(s): I35.0 - Nonrheumatic aortic (valve) stenosis (6) Atrial fibrillation Atrial fibrillation type: unspecified Qualified Code(s): I48.91 - Unspecified atrial fibrillation (7) Closed fracture of left hip Encounter type: initial encounter Qualified Code(s): S72.002A - Fracture of unspecified part of neck of left femur, initial encounter for closed fracture
[2024-11-19 05:48] LABS: Hematocrit (blood only) 29.9 % (37.0-47.0); Hemoglobin 9.8 g/dl (12.0-16.0); Mean Corpuscular Hemoglobin 32.2 pg (25.0-34.0); Mean Corpuscular Hgb Conc 32.8 g/dL (32.0-36.0); Mean Corpuscular Volume 98.4 fL (80.0-100.0); Mean Platelet Volume 10.5 fL (9.4-12.4); Nucleated RBC # (auto) 0.22 K/uL (0.00-0.12); Nucleated RBC % (auto) 1.8 %; Platelet Count 148 K/uL (130-400); RDW Coefficient of Variation 27.6 % (11.5-14.5); Red Blood Count 3.04 M/uL (4.20-5.40); White Blood Count 12.03 K/ul (4.8-10.8)
[2024-11-19 06:04] LABS: Albumin Globulin Ratio 1.2 (0.9-2); BUN Creatinine Ratio 30.5 (10-20); Bilirubin,Total 2.5 mg/dl (0.2-1.0); Calcium 8.1 mg/dl (8.6-10.3); Creatinine Clr Calc Pharmacy 77.2 ml/min; Globulin 2.7 gm/dl (2.5-4.0); Magnesium 1.8 mg/dl (1.7-2.4); Phosphorus 3.3 mg/dl (2.5-4.9); Potassium 4.6 mmol/L (3.5-5.1); Total Protein 5.9 gm/dl (6.0-8.3)
[2024-11-19 06:14] LABS: Anisocytosis Present; Basophils # (auto) 0.04 K/uL (0.00-0.20); Basophils % (auto) 0.3 %; Eosinophils # (auto) 0.04 K/uL (0.00-0.50); Eosinophils % (auto) 0.3 %; Immature Granulocytes # (auto) 0.61 K/uL (0.01-0.20); Immature Granulocytes % (auto) 5.1 %; Lymphocytes # (auto) 1.48 K/uL (1.20-3.40); Lymphocytes % (auto) 12.3 %; Monocytes # (auto) 0.74 K/uL (0.11-0.59); Monocytes % (auto) 6.2 %; Neutrophils # (auto) 9.12 K/uL (1.40-6.50); Neutrophils % (auto) 75.8 %; Polychromasia 1+; Tear Drop Cells 1+
[2024-11-19 06:26] LABS: ANTI-Xa, UFH(UnfractionatedHep 0.26 IU/ml (0.3-0.7); INR 1.5 (0.9-1.1); Prothrombin Time 15.8 Seconds (9.0-12.0)
[2024-11-19] MEDS: TORSEMIDE 20 MG TAB PO SCH (08:00)
--- NOTE | 2024-11-19 10:00 | Orthopedic Progress Note ---
Date of Service November 19, 2024 Assessment & Plan (1) Closed left hip fracture: Plan: Status post ORIF left hip intertrochanteric fracture with Dr. Fitch on November 07, 2024. Patient may be out of bed, weight-bear as tolerated on the left lower extremity with the assistance of a walker. Encouraged range of motion and strengthening exercises as taught by the therapists. Continue PT and OT. Wound care nurse was present today-Debra Parkinson. We elected to change the Prevena as the one on was saturated. New Optifoam dressings were applied around the blisters. Distal incisions dressings were also changed. Those incisions are clean, dry and intact. Ice to left hip and thigh as needed for pain or swelling. Would not recommend removing stacey as of yet due to the amount of drainage that she has having. Would recommend recheck on the incision and Prevena VAC tomorrow to see if the drainage has slowed at all. Patient understands and agrees with the plan. Will continue to follow while in house. Admission and Anticipated Discharge Date Admission Date: November 06, 2024 Subjective Patient is resting in bed. Getting bedding changed by nursing. States that she does have "a lot of pain". This has been more painful than all of the rest of her surgeries and childbirth. She states that after "all of that" she is very tired. Here today with the wound care nurse to look at her wound VAC and potentially change. Physical Exam Musculoskeletal: Exam focused around left lower extremity: Her Prevena is in place. It seems to be functioning. There is Optifoam dressings around the Prevena due to some tape blisters. There is also Aquacel Ag over the blisters. The Optifoam's are saturated as well as the Prevena sponge. There is some mild serosanguineous drainage noted in the canister of the Prevena. Everything was removed today. Her skin was cleansed with a sterile saline wipe. The proximal hip incision appears clean, dry and intact with no active drainage. The stacey are retained. No underlying seroma directly around the incision. She does have some ecchymosis on the posterior thigh and buttock area. Mild tenderness with palpation. Able to do gentle toe, ankle and knee range of motion. After leaving the incision open to air for about a minute there was a small bleeding of the serosanguineous drainage from one of the proximal staple sites. With gentle compression and palpation of the incision no drainage was able to be expressed from the incision. Distal incisions were clean and dry. Dressings changed. Stacey intact, mild erythema, around most distal incision. Results & Data Vital Signs (Past 12 Hours) Vital Signs Temp Pulse Pulse Resp BP BP Pulse Ox 11/19/24 07:36 36.6 C 90 18 100/65 94 11/19/24 06:57 97 H 11/19/24 02:26 36.7 C 75 18 112/76 92 11/18/24 23:12 88 11/18/24 23:07 36.6 C 94 H 18 120/84 91 O2 Del Method 11/19/24 07:36 Room Air 11/19/24 06:57 11/19/24 02:26 Room Air 11/18/24 23:12 11/18/24 23:07 Room Air Laboratory Results 11/19/24 Range/Units 05:24 WBC 12.03 H (4.8-10.8) K/ul RBC 3.04 L (4.20-5.40) M/uL Hgb 9.8 L (12.0-16.0) g/dl Hct 29.9 L (37.0-47.0) % MCV 98.4 (80.0-100.0) fL MCH 32.2 (25.0-34.0) pg MCHC 32.8 (32.0-36.0) g/dL RDW Std Deviation 87.0 H (36.4-46.3) fL RDW Coeff of [place] 27.6 H (11.5-14.5) % Plt Count 148 (130-400) K/uL MPV 10.5 (9.4-12.4) fL Immature Gran % (Auto) 5.1 % Neut % (Auto) 75.8 % Lymph % (Auto) 12.3 % [place] % (Auto) 6.2 % Eos % (Auto) 0.3 % Baso % (Auto) 0.3 % Neut # (Auto) 9.12 H (1.40-6.50) K/uL Lymph # (Auto) 1.48 (1.20-3.40) K/uL [place] # (Auto) 0.74 H (0.11-0.59) K/uL Eos # (Auto) 0.04 (0.00-0.50) K/uL Baso # (Auto) 0.04 (0.00-0.20) K/uL Immature Gran # (Auto) 0.61 H (0.01-0.20) K/uL Absolute Nucleated RBC 0.22 H (0.00-0.12) K/uL Nucleated RBC % (auto) 1.8 % Polychromasia 1+ Anisocytosis Present Tear Drop Cells 1+ PT 15.8 H (9.0-12.0) Seconds INR 1.5 H (0.9-1.1) Heparin Anti-Xa, Unfract 0.26 L (0.3-0.7) IU/ml Sodium 134 L (136-145) mmol/L Potassium 4.6 (3.5-5.1) mmol/L Chloride 101 (98-107) mmol/L Carbon Dioxide 26 (21-32) mmol/L Anion Gap 7 (3-11) BUN 25 H (6-23) mg/dl Creatinine 0.82 (0.6-1.2) mg/dl Est Cr Clr Drug Dosing 77.2 ml/min eGFR 75.01 BUN/Creatinine Ratio 30.5 H (10-20) Glucose 110 H (70-99(Fasting)) mg/dl Calcium 8.1 L (8.6-10.3) mg/dl Phosphorus 3.3 (2.5-4.9) mg/dl Magnesium 1.8 (1.7-2.4) mg/dl Total Bilirubin 2.5 H (0.2-1.0) mg/dl AST 39 (13-39) U/L ALT 35 (7-52) U/L Alkaline Phosphatase 56 (34-104) U/L Total Protein 5.9 L (6.0-8.3) gm/dl Albumin 3.2 L (3.4-5.0) gm/dl Globulin 2.7 (2.5-4.0) gm/dl Albumin/Globulin Ratio 1.2 (0.9-2)
--- NOTE | 2024-11-19 12:14 | Cardiology Progress Note ---
Date of Service November 19, 2024 Assessment & Plan (1) Chronic heart failure with preserved ejection fraction: (2) Atrial fibrillation: (3) Severe mitral insufficiency: (4) Mitral stenosis: (5) Aortic stenosis: (6) Severe pulmonary hypertension: (7) Closed fracture of left hip: Plan 74-year-old female admitted with hip fracture status post repair suffering postoperative anemia and hypovolemic shock. Hypervolemia noted status post transfusion of packed red blood cells and IV therapies. Volume status improved with IV furosemide. Transitioned to oral torsemide today 11/20/23. Elevated heart rates on telemetry. Recommendations: * Titrate toprol XL to 50mg in AM, 25mg in the evening. * Transitioned to oral torsemide 20 mg daily today, 11/19/24. * Reduce potassium supplementation to 20 mEq once daily. * Monitor fluid balance, daily weight, GFR, and electrolytes. * Reduce midodrine to 2.5 mg 3 times daily. * Wean/discontinue midodrine as tolerated. * Metoprolol hold parameters adjusted for systolic blood pressure less than 90 mmHg. * IV heparin bridge for oral warfarin given valvular heart disease. * Warfarin titrated to 7.5 mg daily 11/17/2024. * Goal INR 2.0-3.0. * Wean off hydrocortisone. * Continue telemetry monitoring. * Maintain serum hemoglobin greater than 8.0 g/dL Jame Acevedo DO, [facility] Admission and Anticipated Discharge Date Admission Date: November 06, 2024 Review of Systems Review of Systems: All systems reviewed & are unremarkable except as noted in Subjective Physical Exam Constitutional: well nourished and + ill appearing; no acute distress Respiratory: normal respiratory effort; no respiratory distress, no labored breathing and no retractions Auscultation: + diminished lung sounds (Bases bilateral) and + crackles (Left base); no rales, no rhonchi and no wheezes Cardiovascular: Rate/Rhythm: + irregularly irregular Heart Sounds: normal S1, normal S2 and + murmur (2/6 systolic ejection murmur heard best at the right second intercostal spa) Vessels: no JVD Extremities: + edema (Mild lower extremity edema with stasis changes) Gastrointestinal (Abdomen): Inspection/Auscultation: abdomen normal to inspection and normal bowel sounds; abdomen not distended Percussion/Palpation: abdomen nontender and no guarding Neurologic: CN's II-XI intact bilaterally and moves all extremities; no focal motor deficits Results & Data Vital Signs (Past 12 Hours) Vital Signs Temp Pulse Pulse Resp BP BP Pulse Ox 11/19/24 11:15 36.6 C 95 H 18 114/70 94 11/19/24 07:36 36.6 C 90 18 100/65 94 11/19/24 06:57 97 H 11/19/24 02:26 36.7 C 75 18 112/76 92 O2 Del Method 11/19/24 11:15 Room Air 11/19/24 07:36 Room Air 11/19/24 06:57 11/19/24 02:26 Room Air Laboratory Results Cardiac Enzymes 11/19/24 Range/Units 05:24 AST 39 (13-39) U/L Coagulation 11/19/24 Range/Units 05:24 PT 15.8 H (9.0-12.0) Seconds CBC 11/19/24 Range/Units 05:24 WBC 12.03 H (4.8-10.8) K/ul RBC 3.04 L (4.20-5.40) M/uL Hgb 9.8 L (12.0-16.0) g/dl Hct 29.9 L (37.0-47.0) % Plt Count 148 (130-400) K/uL Neut # (Auto) 9.12 H (1.40-6.50) K/uL Lymph # (Auto) 1.48 (1.20-3.40) K/uL [place] # (Auto) 0.74 H (0.11-0.59) K/uL Eos # (Auto) 0.04 (0.00-0.50) K/uL Baso # (Auto) 0.04 (0.00-0.20) K/uL Comprehensive Metabolic Panel 11/19/24 Range/Units 05:24 Sodium 134 L (136-145) mmol/L Potassium 4.6 (3.5-5.1) mmol/L Chloride 101 (98-107) mmol/L Carbon Dioxide 26 (21-32) mmol/L BUN 25 H (6-23) mg/dl Creatinine 0.82 (0.6-1.2) mg/dl Glucose 110 H (70-99(Fasting)) mg/dl Calcium 8.1 L (8.6-10.3) mg/dl AST 39 (13-39) U/L ALT 35 (7-52) U/L Alkaline Phosphatase 56 (34-104) U/L Total Protein 5.9 L (6.0-8.3) gm/dl Albumin 3.2 L (3.4-5.0) gm/dl Intake and Output 11/18/24 11/19/24 11/19/24 22:59 06:59 14:59 Intake Total 288.8 / 1304.05 54.4 / 54.4 Output Total 1200 / 1600 Balance -911.2 / -295.95 54.4 / 54.4 Intake: IV 288.8 / 704.05 54.4 / 54.4 Heparin 61397 Unit/500 ml D5w 288.8 / 704.05 54.4 / 54.4 25,000 units In 500 ml @ 750 UNITS/HR 15 mls/hr IV .Q24H [facility] Rx#:[id number] Output: Urine Amount (Catheter) 1200 / 1200 External 1200 / 1200 Other: Weight 119.5 kg Weight Measurement Method Built in [facility] (2) Atrial fibrillation Atrial fibrillation type: unspecified Qualified Code(s): I48.91 - Unspecified atrial fibrillation (4) Mitral stenosis Cardiac valve disease etiology: etiology unspecified Qualified Code(s): I05.0 - Rheumatic mitral stenosis (5) Aortic stenosis Cardiac valve disease etiology: etiology unspecified Qualified Code(s): I35.0 - Nonrheumatic aortic (valve) stenosis (7) Closed fracture of left hip Encounter type: initial encounter Qualified Code(s): S72.002A - Fracture of unspecified part of neck of left femur, initial encounter for closed fracture
[2024-11-19 13:30] LABS: ANTI-Xa, UFH(UnfractionatedHep 0.28 IU/ml (0.3-0.7)
--- NOTE | 2024-11-19 14:13 | Hospitalist Progress Note ---
Date of Service November 19, 2024 Assessment & Plan (1) Closed left hip fracture: Plan: 74-year-old female from [place] visiting [place] with past medical history significant for hypertension, CHF who is status post fall with left hip fracture, s/p ORIF on 11/07/24 with postop anemia and hypotension requiring transfer to the ICU. Closed left hip fracture Status post mechanical fall Orthopedics consulted, appreciate recs -s/p ORIF on 11/07/24 -concern for infection on 11/15-11/16: Ortho evaluated, not infection, concern for edema, wound vac placed On diuretics started by cardiology on 11/16/24 PT/OT- recommending acute rehab Appreciate reevaluation by the orthopedic surgeon regarding drainage from the surgical site Wound VAC has been placed and draining small amount of serous fluid Doubt any infection Denies any significant pain in the joints and the drainage seems to be decreased Hypotension Hypotensive Shock Pt with postop hypotensive shock requiring transfer to the ICU Required vasopressor support x2 Was on midodrine 10mg TID, hydrocortisone and florinef for adrenal support- being weaned Home antihypertensives on hold Improving, downgraded from the ICU on 11/13 after off of pressors for some time On Toprol 25mg BID with hold parameters decreased Hydrocortisone being weaned, midodrine down to 5mg TID Pt now on diuretic from 11/16/24 Still has occasional hypotension and she is off any pressor agents Has been on metoprolol succinate 25 mg twice daily and also midodrine for blood pressure support Her blood pressure remains stable at 140/70 and heart rate is controlled at 95 Acute Blood Loss Anemia post op, requiring 3U pRBCs thus far CT abd/pelvis noting large hematoma Heparin previously on hold, has since been resumed with start of warfarin for valvular a fib. Hgb stable Continue to monitor Hemoglobin remains stable at 9.3 Acute depression Feels very depressed and wanted to have some help Appreciate psychiatrist input and recommendation Plan to start duloxetine 20 mg daily after about 4 weeks to decrease the risk of bleeding (2) Chronic heart failure with preserved ejection fraction: Plan: Acute on Chronic heart failure with preserved EF Hypoxia Now with evidence of acute CHF during this admission Extremities swollen Seeping fluid out of surgical left hip wound Cardiology consulted, appreciate recs -started on IV Lasix 20mg BID on 11/16 Wean oxygen as tolerated No evidence of fluid overload Significant valvular heart disease Has moderate aortic stenosis, severe mitral valve stenosis and moderate mitral regurgitation Severe pulmonary hypertension as well Echo with EF 65-70%, mod LVH, LA severely dilated, mild to mod , mild MS, severe MR will likely need valvular heart surgery will need to have follow-up appointments with Cardiac/Thoracic surgeon as an outpatient (3) Atrial fibrillation with controlled ventricular response: Plan: Atrial Fibrillation with RVR Has significant valvular heart disease with atrial fibrillation and increased ventricular rate Was on IV amiodarone, then transitioned to oral amiodarone before being discontinued. Pt was then started on Toprol Anticoagulation previously on hold in the setting of acute blood loss anemia- heparin resumed. Warfarin restarted with heparin bridge Cardiology consulted and managing, appreciate recs Improving 11/14- INR on 11/07 1.3. started on warfarin today with heparin bridge. Will need close monitoring of H/H 11/15- continuing Toprol XL 25mg BID with warfarin and heparin bridge, hgb stable at 8.3 11/16-hgb stable >8, INR still 1.1. Continue warfarin with heparin bridge 11/17- hgb stable at 8.6, INR 1.1 but noted PT of 12.3. Given hematoma and severe bleed hx will defer on additional extra warfarin doses at this time. INR remains subtherapeutic at 1.2 Will continue Warferin at 7.5 mg daily and monitor INR INR is 1.5 today and will continue Coumadin at 7.5 mg daily (4) Severe pulmonary hypertension: (5) Severe mitral valve stenosis: (6) Moderate mitral regurgitation: Plan Leukocytosis Has been elevated Likely in setting of steroid use No current signs of infection Continue to monitor Diet: DVT prophylaxis: warfarin with heparin bridge Dispo: per PT/OT recs- recommending acute rehab Admission and Anticipated Discharge Date Admission Date: November 06, 2024 Subjective 11/07/2024 The patient was seen and examined in the telemetry unit She was admitted with a mechanical fall and fracture of the left hip Noted to have atrial fibrillation on admission Denies any chest pain and/or palpitation Complains pain in the left hip with any movement of the left lower extremity 11/08/2024 The patient was seen and examined in ICU She remains extremely weak and lethargic She has been on 2 pressor support now and has been started on intravenous amiodarone to control the heart rate Denies any chest pain and/or palpitation and does not have any shortness of breath at rest No abdominal pain nausea and/or vomiting 11/09/2024 The patient was seen and examined in ICU She has been feeling a little better following blood transfusion Feels tired otherwise denies any significant pain or other symptoms 11/10/2024 The patient was seen and examined in ICU She has been feeling much better and denies any significant symptoms No shortness of breath and no pain at rest 11/18/2024 The patient was seen and examined in telemetry unit She has been feeling much better but remains weak and lethargic Her blood pressure was noted to be low this morning with lower 80s without any symptoms at rest Complains of occasional dizziness with ambulation which has not been new symptoms for her 11/19/2024 The patient was seen and examined in the telemetry unit She has been better but feels very depressed Denies any other significant symptoms Review of Systems Review of Systems: All systems reviewed and are unremarkable except as noted below Physical Exam Physical Exam: Lying in bed with minimal shortness of breath at rest and distress generally Constitutional: well developed, well nourished, + ill appearing and + obese Eyes: PERRL, conjunctivae normal, anicteric sclerae ENMT: external ear and nose normal, oropharynx normal Neck: trachea midline, no thyromegaly Respiratory: no respiratory distress Auscultation: lungs clear to auscultation bilaterally and + diminished lung sounds ( minimal crackles at the bases) Cardiovascular: Rate/Rhythm: + irregularly irregular; not tachycardic Heart Sounds: normal S1, normal S2 and + murmur Extremities: + edema (Trace edema bilaterally) Gastrointestinal (Abdomen): Inspection/Auscultation: normal bowel sounds; abdomen not distended Percussion/Palpation: abdomen soft; abdomen nontender Neurologic: normal touch/pain/proprioception and moves all extremities (Less movement with the left lower extremity due to fracture) Psychiatric: A+Ox3, euthymic affect Lymphatic: no cervical or axillary lymphadenopathy Results & Data Results & Data Vital Signs (Past 12 Hours) Vital Signs Temp Pulse Pulse Resp BP BP Pulse Ox 11/19/24 11:15 36.6 C 95 H 18 114/70 94 11/19/24 07:36 36.6 C 90 18 100/65 94 11/19/24 06:57 97 H 11/19/24 02:26 36.7 C 75 18 112/76 92 O2 Del Method 11/19/24 11:15 Room Air 11/19/24 07:36 Room Air 11/19/24 06:57 11/19/24 02:26 Room Air Laboratory Results Short CBC 11/19/24 Range/Units 05:24 WBC 12.03 H (4.8-10.8) K/ul Hgb 9.8 L (12.0-16.0) g/dl Hct 29.9 L (37.0-47.0) % Plt Count 148 (130-400) K/uL BMP 11/19/24 05:24 Sodium 134 L Potassium 4.6 Chloride 101 Carbon Dioxide 26 BUN 25 H Creatinine 0.82 Glucose 110 H Calcium 8.1 L Liver Function 11/19/24 Range/Units 05:24 Total Bilirubin 2.5 H (0.2-1.0) mg/dl AST 39 (13-39) U/L ALT 35 (7-52) U/L Alkaline Phosphatase 56 (34-104) U/L Albumin 3.2 L (3.4-5.0) gm/dl Medications Administered Current Inpatient Medications Calcium Carbonate (Calcium Carbonate 1,250 Mg/5 Ml Udc) 1,250 mg PO BID [facility] Stop: 12/12/24 08:59 Last Admin: 11/19/24 08:00 Dose: 1,250 mg Hydromorphone HCl (Hydromorphone Inj 0.5 Mg/0.5 Ml Syr) 0.25 mg IV Q4H PRN PRN Reason: Pain (Scale 4-10) Stop: 11/20/24 23:15 Last Admin: 11/15/24 15:19 Dose: 0.25 mg Heparin Sodium/Dextrose (Heparin 84566 Unit/500 Ml D5w) 25,000 units in 500 mls @ 17 mls/hr IV .Q24H [facility]; Protocol Stop: 12/11/24 09:59 Last Admin: 11/19/24 10:05 Dose: 850 units/hr, 17 mls/hr Hydrocortisone Sodium (Succinate 50 mg/ Syringe) 1 mls @ 4 mls/min IV DAILY [facility] Stop: 12/18/24 08:59 Last Admin: 11/19/24 08:00 Dose: 4 mls/min Metoprolol Succinate (Metoprolol Succ 50mg Ext Rel Tab) [facility] Stop: 12/20/24 08:59 Metoprolol Succinate (Metoprolol Succ 25mg Ext Rel Tab) 25 mg PO HS [facility] Stop: 12/19/24 20:59 Midodrine (Midodrine Hcl 2.5 Mg Tab) 2.5 mg PO TID@0800,1200,1700 [facility] Stop: 12/19/24 16:59 Nitroglycerin (Nitroglycerin Sl 0.4 Mg/Tab Tab) 0.4 mg SL Q5M PRN PRN Reason: Chest Pain Stop: 12/06/24 23:15 Ondansetron HCl (Ondansetron Inj 2 Mg/Ml 2 Ml Vial) 4 mg IV Q6H PRN PRN Reason: Nausea And Vomiting Stop: 12/06/24 23:20 Last Admin: 11/14/24 00:06 Dose: 4 mg Oxycodone/Acetaminophen (Oxycodone/Acetaminophen 5mg/325mg Tab) 1 tab PO Q4H PRN PRN Reason: Pain Stop: 11/25/24 09:35 Last Admin: 11/19/24 10:02 Dose: 1 tab Pantoprazole Sodium (Pantoprazole 40 Mg Tab) 40 mg PO [facility] Stop: 12/13/24 08:59 Last Admin: 11/19/24 08:00 Dose: 40 mg Polyethylene Glycol (Polyethylene (Miralax) 17 Gm Pack) 17 gm PO DAILY PRN PRN Reason: Constipation Stop: 12/06/24 23:15 Last Admin: 11/18/24 10:34 Dose: 17 gm Potassium Chloride (Potassium Chloride Crtab 20 Meq Tabcr) 20 meq PO [facility] Stop: 12/20/24 08:59 Torsemide (Torsemide 20 Mg Tab) [facility] Stop: 12/19/24 08:59 Last Admin: 11/19/24 08:00 Dose: 20 mg Vitamin D (Cholecalciferol 125 Mcg (5,000 Units) Tab) 125 [facility]cg [facility] Stop: 12/17/24 10:14 Last Admin: 11/19/24 08:00 Dose: 125 mcg Warfarin Sodium (Warfarin Sod 7.5 Mg Tab) 7.5 mg PO DAILY@1600 [facility] Stop: 12/17/24 17:14 Last Admin: 11/18/24 15:51 Dose: 7.5 mg
--- NOTE | 2024-11-19 14:57 | Psychiatric Consultation ---
Date of Consultation November 19, 2024 Impression / Recommendations Impression Diagnostically consistent with major depressive disorder mild vs adjustment disorder with depressed mood in context of medical issues and increased pain. Acute risk of self-harm is low given denial of SI. She may benefit from medications, and therapy which she is agreeable to trying. Sodium is normal and QTc is <500ms. Would consider delaying initiation of SSRI or SNRI until 30 days post-op as effects on platelet aggregation can increase risk for post- operatively bleeding complications. Some of her previous depression symptoms, prior to current hospitalization and new medical symptoms, seem to be largely tied to normative age-related concerns that often arise when reflecting on past and thinking about goals for the future (Velia stage of integrity vs despair) for which psychotherapy is likely to be very beneficial. Reviewed medication options and discussed risks/benefits/alternatives. She is agreeable to trial of duloxetine given potential for dual benefits for mood and pain symptoms. If not well tolerated or should new contraindications emerge then would recommend trial of SSRI. Overall, I spent a total of 45 minutes with this case including review of chart records, review of labwork, review of EKG QTc, direct evaluation of the patient at bedside, counseling the patient, discussion of the patient with the hospitalist provider, discussion with the psychiatric liason during clinical rounds, and documentation in the electronic health record. (1) Depression: (2) Atrial fibrillation: Atrial fibrillation type: unspecified Qualified Code(s): I48.91 - Unspecified atrial fibrillation (3) Hip pain: (4) Acute on chronic heart failure with preserved ejection fraction (HFpEF): (5) Closed left hip fracture: Plan -Consider initiation of duloxetine 20mg daily for depression and pain; would advise waiting until 30 days post-op if feasible to reduce risk for bleeding complications following recent surgery given SNRI platelet aggregation effects. If well tolerated and further benefit is needed can then titrate to 30mg daily after 1 week and then up to 40mg after 4 weeks if needed. -Psych liason to explore options for outpatient psychotherapy in [place] for after she returns home and completes physical rehab Psych History Identifying Data 74 yo woman with a history of hypertension, CHF, cataract admitted medically following fall and left hip fracture and now also being treated for afib and valve stenosis. Psychiatry consulted for "acute depression". Chief Complaint "I'm hoping for something to help me cope". History of Present Illness Michelle was visited her son and his family from [place] when she fell and broke her hip. Prior to this event she was dealing with some depression which she recognizes that she's been reflecting back on things. Depression has worsened with hospitalization, significant hip pain and ongoing medical consequences inc luding cardiac symptoms. She recalls thinking she was going to when she was first in the hospitalization and how overwhelming this was. Currently she feels her depression is manageable but she thinks medication and therapy could be beneficial in allowing her to cope more easily with her new medical conditions and to address current depression symptoms of feeling down at times and having less energy. She denies SI and denies any history of SI. One prior brief trial of SSRI for two weeks ~30 years ago. No other significant psychiatric history. Psychiatric ROS notable for denial of anxiety, no history of roxy nor psychosis. PHQ-9 score of 6 with scores for low energy and feeling down. Q9 score of 0. She also discussed with psychiatric liason RN that she'd been reflecting more on her life and what she wants for her future in terms of relationships and fulfilment. Allergies Allergy/AdvReac Type Severity Reaction Status Date / Time Penicillins Allergy Itching Verified 11/06/24 23:26 Home Medications Medication Instructions Recorded Confirmed Type carvedilol 25 mg tablet 25 mg PO BID 11/06/24 11/06/24 History hydrochlorothiazide 25 mg tablet 25 mg PO DAILY 11/06/24 11/06/24 History lisinopril 20 mg tablet 20 mg PO DAILY 11/06/24 11/06/24 History Patient History Social History Smoking Status: Former smoker Smoking End Date: 5 years ago; Hx Alcohol Use: Yes Alcohol type: wine Hx Substance Use: No Preferred Language: Thai Communication Ability: Effective Production Line Required: No Beliefs That Will Affect Care: None Current Living Situation: Spouse Other Information That Helps Us Care for You: No Feels Safe at Home: Yes Safety Concerns: Feels Safe At This Time Assistive Devices: Cane Physical Exam Vital Signs (Past 24 Hours): Last Vital Signs Temp 36.6 C 11/19/24 11:15 Pulse 95 H 11/19/24 11:15 Resp 18 11/19/24 11:15 BP 114/70 11/19/24 11:15 Pulse Ox 94 11/19/24 11:15 O2 Del Method Room Air 11/19/24 11:15 O2 Flow Rate 1 11/18/24 15:00 Results & Data (PSY) Medications Administered Calcium Carbonate (Calcium Carbonate 1,250 Mg/5 Ml Udc) 1,250 mg PO BID [facility] Stop: 12/12/24 08:59 Last Admin: 11/19/24 08:00 Dose: 1,250 mg Documented By: Admin: 11/18/24 20:12 Dose: 1,250 mg Documented By: Admin: 11/18/24 08:57 Dose: 1,250 mg Documented By: Admin: 11/17/24 21:10 Dose: 1,250 mg Documented By: Admin: 11/17/24 08:01 Dose: 1,250 mg Documented By: Admin: 11/16/24 20:13 Dose: 1,250 mg Documented By: Admin: 11/16/24 08:37 Dose: 1,250 mg Documented By: Admin: 11/15/24 20:27 Dose: 1,250 mg Documented By: Admin: 11/15/24 07:30 Dose: 1,250 mg Documented By: Admin: 11/14/24 20:35 Dose: 1,250 mg Documented By: Admin: 11/14/24 08:18 Dose: 1,250 mg Documented By: Admin: 11/13/24 19:51 Dose: 1,250 mg Documented By: Admin: 11/13/24 08:44 Dose: 1,250 mg Documented By: Admin: 11/12/24 20:05 Dose: 1,250 mg Documented By: Admin: 11/12/24 09:09 Dose: 1,250 mg Documented By: CAM Hydromorphone HCl (Hydromorphone Inj 0.5 Mg/0.5 Ml Syr) 0.25 mg IV Q4H PRN PRN Reason: Pain (Scale 4-10) Stop: 11/20/24 23:15 Last Admin: 11/15/24 15:19 Dose: 0.25 mg Documented By: Admin: 11/14/24 13:21 Dose: 0.25 mg Documented By: Admin: 11/13/24 09:03 Dose: 0.25 mg Documented By: ES Heparin Sodium/Dextrose (Heparin 92254 Unit/500 Ml D5w) 25,000 units in 500 mls @ 17 mls/hr IV .Q24H REPLACED BY [facility]; Protocol Stop: 12/11/24 09:59 Last Admin: 11/19/24 10:05 Dose: 850 units/hr, 17 mls/hr Documented By: Co-signed By: LEDA Titration: 11/19/24 10:05 Dose: Infused Documented By: Co-signed By: LEDA Titration: 11/19/24 06:53 Dose: 850 units/hr, 17 mls/hr Documented By: MOHAN Co-signed By: Titration: 11/19/24 06:29 Dose: 850 units/hr, 17 mls/hr Documented By: MOHAN Co-signed By: ANU Admin: 11/18/24 11:41 Dose: 750 units/hr, 15 mls/hr Documented By: Co-signed By: IESHA Titration: 11/18/24 11:41 Dose: Infused Documented By: MS Co-signed By: IESHA Titration: 11/18/24 08:24 Dose: 750 units/hr, 15 mls/hr Documented By: MS Co-signed By: JBRenay Admin: 11/17/24 08:00 Dose: 750 units/hr, 15 mls/hr Documented By: ERIS Co-signed By: JACY Titration: 11/17/24 08:00 Dose: Infused Documented By: AMB Co-signed By: BT Titration: 11/16/24 06:59 Dose: 750 units/hr, 15 mls/hr Documented By: IRVING Co-signed By: ASM Admin: 11/16/24 00:22 Dose: 750 units/hr, 15 mls/hr Documented By: ASM Co-signed By: ANU Titration: 11/15/24 22:41 Dose: Infused Documented By: ASM Co-signed By: BK Titration: 11/15/24 06:54 Dose: 750 units/hr, 15 mls/hr Documented By: IRVING Co-signed By: ASM Titration: 11/14/24 19:04 Dose: 750 units/hr, 15 mls/hr Documented By: SLIM Co-signed By: NESTOR Titration: 11/14/24 15:30 Dose: 750 units/hr, 15 mls/hr Documented By: ANTIONE Co-signed By: SLIM Admin: 11/14/24 13:21 Dose: 750 units/hr, 15 mls/hr Documented By: SLIM Co-signed By: ANTIONE Titration: 11/14/24 13:21 Dose: Infused Documented By: SLIM Co-signed By: ANTIONE Titration: 11/14/24 07:30 Dose: 750 units/hr, 15 mls/hr Documented By: SLIM Co-signed By: ANTIONE Titration: 11/14/24 06:18 Dose: 0 units/hr, 0 mls/hr Documented By: MNM Co-signed By: SKS Admin: 11/13/24 11:36 Dose: 1,000 units/hr, 20 mls/hr Documented By: SLIM Co-signed By: NMK Titration: 11/13/24 11:36 Dose: Infused Documented By: SLIM Co-signed By: NMK Admin: 11/13/24 09:28 Dose: Not Given Documented By: Titration: 11/13/24 07:14 Dose: 1,000 units/hr, 20 mls/hr Documented By: ARLETTE Co-signed By: ES Titration: 11/13/24 05:46 Dose: 1,000 units/hr, 20 mls/hr Documented By: SG Co-signed By: CP Titration: 11/12/24 19:06 Dose: 1,000 units/hr, 20 mls/hr Documented By: CAM Co-signed By: SG Admin: 11/12/24 12:41 Dose: 1,000 units/hr, 20 mls/hr Documented By: CAM Co-signed By: CMP Titration: 11/12/24 11:53 Dose: Infused Documented By: CAM Co-signed By: CMP Titration: 11/12/24 06:47 Dose: 1,000 units/hr, 20 mls/hr Documented By: JT Co-signed By: CAM Titration: 11/12/24 06:15 Dose: 1,000 units/hr, 20 mls/hr Documented By: JT Co-signed By: JMS Titration: 11/11/24 18:54 Dose: 1,000 units/hr, 20 mls/hr Documented By: JT Co-signed By: NMK Admin: 11/11/24 10:53 Dose: 1,000 units/hr, 20 mls/hr Documented By: NMK Co-signed By: JORJE Hydrocortisone Sodium (Succinate 50 mg/ Syringe) 1 mls @ 4 mls/min IV DAILY [facility] Stop: 12/18/24 08:59 Last Admin: 11/19/24 08:00 Dose: 4 mls/min Documented By: Admin: 11/18/24 08:57 Dose: 4 mls/min Documented By: Ondansetron HCl (Ondansetron Inj 2 Mg/Ml 2 Ml Vial) 4 mg IV Q6H PRN PRN Reason: Nausea And Vomiting Stop: 12/06/24 23:20 Last Admin: 11/14/24 00:06 Dose: 4 mg Documented By: Admin: 11/13/24 09:03 Dose: 4 mg Documented By: Admin: 11/08/24 19:20 Dose: 4 mg Documented By: Admin: 11/08/24 01:23 Dose: 4 mg Documented By: Admin: 11/07/24 18:03 Dose: 4 mg Documented By: Admin: 11/07/24 00:53 Dose: 4 mg Documented By: BILLY Oxycodone/Acetaminophen (Oxycodone/Acetaminophen 5mg/325mg Tab) 1 tab PO Q4H PRN PRN Reason: Pain Stop: 11/25/24 09:35 Last Admin: 11/19/24 10:02 Dose: 1 tab Documented By: Admin: 11/18/24 20:12 Dose: 1 tab Documented By: Admin: 11/18/24 15:50 Dose: 1 tab Documented By: Admin: 11/17/24 21:09 Dose: 1 tab Documented By: Admin: 11/17/24 07:58 Dose: 1 tab Documented By: Admin: 11/16/24 22:59 Dose: 1 tab Documented By: Admin: 11/16/24 16:46 Dose: 1 tab Documented By: Admin: 11/16/24 11:23 Dose: 1 tab Documented By: Admin: 11/15/24 11:23 Dose: 1 tab Documented By: Admin: 11/15/24 07:28 Dose: 1 tab Documented By: Admin: 11/14/24 21:20 Dose: 1 tab Documented By: Admin: 11/14/24 10:29 Dose: 1 tab Documented By: Admin: 11/14/24 00:06 Dose: 1 tab Documented By: Admin: 11/13/24 10:54 Dose: 1 tab Documented By: Admin: 11/12/24 21:44 Dose: 1 tab Documented By: Admin: 11/12/24 11:13 Dose: 1 tab Documented By: Admin: 11/11/24 19:37 Dose: 1 tab Documented By: Admin: 11/11/24 10:16 Dose: 1 tab Documented By: KIMBERLY Pantoprazole Sodium (Pantoprazole 40 Mg Tab) 40 mg PO [facility] Stop: 12/13/24 08:59 Last Admin: 11/19/24 08:00 Dose: 40 mg Documented By: Admin: 11/18/24 08:19 Dose: 40 mg Documented By: Admin: 11/17/24 08:02 Dose: 40 mg Documented By: Admin: 11/16/24 08:38 Dose: 40 mg Documented By: Admin: 11/15/24 07:31 Dose: 40 mg Documented By: Admin: 11/14/24 08:17 Dose: 40 mg Documented By: Admin: 11/13/24 08:44 Dose: 40 mg Documented By: SLIM Polyethylene Glycol (Polyethylene (Miralax) 17 Gm Pack) 17 gm PO DAILY PRN PRN Reason: Constipation Stop: 12/06/24 23:15 Last Admin: 11/18/24 10:34 Dose: 17 gm Documented By: Torsemide (Torsemide 20 Mg Tab) 20 mg PO [facility] Stop: 12/19/24 08:59 Last Admin: 11/19/24 08:00 Dose: 20 mg Documented By: Vitamin D (Cholecalciferol 125 Mcg (5,000 Units) Tab) 125 mcg PO [facility] Stop: 12/17/24 10:14 Last Admin: 11/19/24 08:00 Dose: 125 mcg Documented By: Admin: 11/18/24 08:19 Dose: 125 mcg Documented By: Admin: 11/17/24 12:22 Dose: 125 mcg Documented By: ERIS Warfarin Sodium (Warfarin Sod 7.5 Mg Tab) 7.5 mg PO DAILY@1600 REPLACED BY [facility] Stop: 12/17/24 17:14 Last Admin: 11/18/24 15:51 Dose: 7.5 mg Documented By: Admin: 11/17/24 18:30 Dose: 7.5 mg Documented By: ERIS Coding Level of Care Code 42132 IN/OBS CONSULT LVL 3,45M Diagnoses Depression F32.A Atrial fibrillation I48.91 Atrial fibrillation type: unspecified Hip pain M25.559 Acute on chronic heart failure with preserved ejection fraction (HFpEF) I50.33 Closed left hip fracture S72.002A
[2024-11-19] MEDS: MIDODRINE HCL 2.5 MG TAB PO SCH (17:55)
[2024-11-19] MEDS: METOPROLOL SUCC 25MG EXT REL TAB PO SCH (20:26)
[2024-11-19 21:48] LABS: ANTI-Xa, UFH(UnfractionatedHep 0.32 IU/ml (0.3-0.7)
[2024-11-20 07:16] LABS: Basophils # (auto) 0.04 K/uL (0.00-0.20); Basophils % (auto) 0.3 %; Eosinophils # (auto) 0.03 K/uL (0.00-0.50); Eosinophils % (auto) 0.3 %; Hematocrit (blood only) 31.6 % (37.0-47.0); Hemoglobin 10.3 g/dl (12.0-16.0); Immature Granulocytes % (auto) 2.6 %; Lymphocytes # (auto) 1.11 K/uL (1.20-3.40); Lymphocytes % (auto) 9.5 %; Mean Corpuscular Hemoglobin 32.9 pg (25.0-34.0); Mean Corpuscular Hgb Conc 32.6 g/dL (32.0-36.0); Mean Platelet Volume 10.9 fL (9.4-12.4); Monocytes # (auto) 0.73 K/uL (0.11-0.59); Monocytes % (auto) 6.3 %; Neutrophils # (auto) 9.42 K/uL (1.40-6.50); Nucleated RBC # (auto) 0.14 K/uL (0.00-0.12); Nucleated RBC % (auto) 1.2 %; Platelet Count 153 K/uL (130-400); RDW Coefficient of Variation 28.4 % (11.5-14.5); RDW Standard Deviation 96.6 fL (36.4-46.3); Red Blood Count 3.13 M/uL (4.20-5.40); White Blood Count 11.63 K/ul (4.8-10.8)
[2024-11-20 07:38] LABS: Anisocytosis Present; Polychromasia 2+
[2024-11-20 07:41] LABS: INR 1.8 (0.9-1.1); Prothrombin Time 18.7 Seconds (9.0-12.0)
[2024-11-20 07:44] LABS: BUN Creatinine Ratio 29.9 (10-20); Calcium 8.2 mg/dl (8.6-10.3); Creatinine Clr Calc Pharmacy 71.9 ml/min; Magnesium 1.7 mg/dl (1.7-2.4)
[2024-11-20] MEDS: METOPROLOL SUCC 50MG EXT REL TAB PO SCH (08:11)
[2024-11-20] MEDS: POTASSIUM CHLORIDE CRTAB 20 MEQ TABCR PO SCH (08:18)
--- NOTE | 2024-11-20 09:24 | Orthopedic Progress Note ---
Date of Service November 20, 2024 Assessment & Plan (1) Closed left hip fracture: Plan: The patient was educated regarding today's findings. Conservative care measures were discussed. Importance of getting out of bed was reiterated several times. She needs to participate with physical therapy. Her wound VAC is functioning fine today. There is no loss of suction. No excessive weeping. Her distal incisions are currently dry. I think she can have these stacey removed on Sunday if she is still here in the hospital. The proximal wounds will need a bit longer for the stacey. Continue to ice any sore areas. Continue DVT prophylaxis. Admission and Anticipated Discharge Date Admission Date: November 06, 2024 Subjective This 74-year-old female is seen today in her room. She states she had her linens changed already this morning, which required turning of the patient. She states she is exhausted from it. She did not participate with physical therapy yesterday. She currently has mild discomfort in the left leg after being turned. She denies any numbness or tingling. No additional complaints. Physical Exam Physical Exam: General: Well-developed, well-nourished, elderly female, sitting in her bed. Alert and oriented. Conversive. Skin: Warm and dry good turgor. Postsurgical incisions on the left thigh are healing well. Wounds are closed. She has no active bleeding. Dressings are dry. Wound VAC is in place. There is drainage in the tube and about half full n the container. Suction is adequate. Venous stasis changes are still present in her lower legs. Surgical foam pads are dry at this time. No ecchymosis. Musculoskeletal: The patient has intact motor function to her left toes and ankle. She is able to press up on her forefoot to elevate the thigh. She still cannot actively hip flex. She can extend and flex her knee without assistance. She still complains of discomfort with passive rotation as well as flexion of the left hip. Neurologic: Gross sensation is intact across left thigh, calf, and ankle. Peripheral pulses are 2+. Results & Data Vital Signs (Past 12 Hours) Vital Signs Temp Pulse Pulse Resp BP Pulse Ox O2 Del Method 11/20/24 08:51 125/64 11/20/24 07:28 36.5 C 116 H 18 90/55 L 91 Room Air 11/20/24 02:55 36.3 C L 84 18 98/67 L 90 Room Air 11/20/24 00:00 89 11/19/24 22:57 36.6 C 108 H 18 101/66 92 Room Air 11/19/24 22:43 103 H Laboratory Results CBC obtained today shows a white count of 11.63. H&H of 10.3 and 31.6. Platelets 153,000. INR today is 1.8. Sodium 134. Potassium 4.0. Carbon dioxide 25. BUN of 26 with creatinine 0.87. Glucose 123.
--- NOTE | 2024-11-20 12:51 | Hospitalist Progress Note ---
Date of Service November 20, 2024 Assessment & Plan (1) Closed left hip fracture: Plan: 74-year-old female from [place] visiting [place] with past medical history significant for hypertension, CHF who is status post fall with left hip fracture, s/p ORIF on 11/07/24 with postop anemia and hypotension requiring transfer to the ICU. Closed left hip fracture Status post mechanical fall Orthopedics consulted, appreciate recs -s/p ORIF on 11/07/24 -concern for infection on 11/15-11/16: Ortho evaluated, not infection, concern for edema, wound vac placed On diuretics started by cardiology on 11/16/24 PT/OT- recommending acute rehab Appreciate reevaluation by the orthopedic surgeon regarding drainage from the surgical site Wound VAC has been placed and draining small amount of serous fluid Doubt any infection Denies any significant pain in the joints and the drainage seems to be decreased Denies any significant pain and swelling involving the surgical site left upper thigh and hip Hypotension Hypotensive Shock Pt with postop hypotensive shock requiring transfer to the ICU Required vasopressor support x2 Was on midodrine 10mg TID, hydrocortisone and florinef for adrenal support- being weaned Home antihypertensives on hold Improving, downgraded from the ICU on 11/13 after off of pressors for some time On Toprol 25mg BID with hold parameters decreased Hydrocortisone being weaned, midodrine down to 5mg TID Pt now on diuretic from 11/16/24 Still has occasional hypotension and she is off any pressor agents Has been on metoprolol succinate 25 mg twice daily and also midodrine for blood pressure support Her blood pressure remains stable at 140/70 and heart rate is controlled at 95 Blood pressure remains stable at systolic 100 Acute Blood Loss Anemia post op, requiring 3U pRBCs thus far CT abd/pelvis noting large hematoma Heparin previously on hold, has since been resumed with start of warfarin for valvular a fib. Hgb stable Continue to monitor Hemoglobin remains stable at 9.3 hemoglobin remains stable at 10.3 as of 11/20/2024 Acute depression Feels very depressed and wanted to have some help Appreciate psychiatrist input and recommendation Plan to start duloxetine 20 mg daily after about 4 weeks to decrease the risk of bleeding She is agreeable to start duloxetine 20 mg daily after about 4 weeks (2) Chronic heart failure with preserved ejection fraction: Plan: Acute on Chronic heart failure with preserved EF Hypoxia Now with evidence of acute CHF during this admission Extremities swollen Seeping fluid out of surgical left hip wound Cardiology consulted, appreciate recs -started on IV Lasix 20mg BID on 11/16 Wean oxygen as tolerated No evidence of fluid overload Significant valvular heart disease Has moderate aortic stenosis, severe mitral valve stenosis and moderate mitral regurgitation Severe pulmonary hypertension as well Echo with EF 65-70%, mod LVH, LA severely dilated, mild to mod , mild MS, severe MR will likely need valvular heart surgery will need to have follow-up appointments with Cardiac/Thoracic surgeon as an out patient (3) Atrial fibrillation with controlled ventricular response: Plan: Atrial Fibrillation with RVR Has significant valvular heart disease with atrial fibrillation and increased ventricular rate Was on IV amiodarone, then transitioned to oral amiodarone before being discontinued. Pt was then started on Toprol Anticoagulation previously on hold in the setting of acute blood loss anemia- heparin resumed. Warfarin restarted with heparin bridge Cardiology consulted and managing, appreciate recs Improving 11/14- INR on 11/07 1.3. started on warfarin today with heparin bridge. Will need close monitoring of H/H 11/15- continuing Toprol XL 25mg BID with warfarin and heparin bridge, hgb stable at 8.3 11/16-hgb stable >8, INR still 1.1. Continue warfarin with heparin bridge 11/17- hgb stable at 8.6, INR 1.1 but noted PT of 12.3. Given hematoma and severe bleed hx will defer on additional extra warfarin doses at this time. INR remains subtherapeutic at 1.2 Will continue Warferin at 7.5 mg daily and monitor INR INR is 1.5 today and will continue Coumadin at 7.5 mg daily Heart rate is elevated at 114- continue beta-jose and will observe (4) Severe pulmonary hypertension: (5) Severe mitral valve stenosis: (6) Moderate mitral regurgitation: Plan Leukocytosis Has been elevated Likely in setting of steroid use No current signs of infection Continue to monitor Diet: HH DVT prophylaxis: warfarin with heparin bridge Will continue with IV heparin and oral Coumadin for now INR is 1.8 today Likely to be therapeutic tomorrow and possible discharge tomorrow if remains stable Dispo: per PT/OT recs- recommending acute rehab Admission and Anticipated Discharge Date Admission Date: November 06, 2024 Subjective 11/07/2024 The patient was seen and examined in the telemetry unit She was admitted with a mechanical fall and fracture of the left hip Noted to have atrial fibrillation on admission Denies any chest pain and/or palpitation Complains pain in the left hip with any movement of the left lower extremity 11/08/2024 The patient was seen and examined in ICU She remains extremely weak and lethargic She has been on 2 pressor support now and has been started on intravenous amiodarone to control the heart rate Denies any chest pain and/or palpitation and does not have any shortness of breath at rest No abdominal pain nausea and/or vomiting 11/09/2024 The patient was seen and examined in ICU She has been feeling a little better following blood transfusion Feels tired otherwise denies any significant pain or other symptoms 11/10/2024 The patient was seen and examined in ICU She has been feeling much better and denies any significant symptoms No shortness of breath and no pain at rest 11/18/2024 The patient was seen and examined in telemetry unit She has been feeling much better but remains weak and lethargic Her blood pressure was noted to be low this morning with lower 80s without any s ymptoms at rest Complains of occasional dizziness with ambulation which has not been new symptoms for her 11/19/2024 The patient was seen and examined in the telemetry unit She has been better but feels very depressed Denies any other significant symptoms 11/20/2024 The patient was seen and examined in telemetry unit She has been feeling better but remains weak Has had some shortness of breath following changing of bed position and she is trying to come out of bed Heart rate is noted to be high at 114 Review of Systems Review of Systems: All systems reviewed and are unremarkable except as noted below Physical Exam Physical Exam: Lying in bed with minimal shortness of breath at rest and distress generally Constitutional: well developed, well nourished, + ill appearing and + obese Eyes: PERRL, conjunctivae normal, anicteric sclerae ENMT: external ear and nose normal, oropharynx normal Neck: trachea midline, no thyromegaly Respiratory: no respiratory distress Auscultation: lungs clear to auscultation bilaterally and + diminished lung sounds ( minimal crackles at the bases) Cardiovascular: Rate/Rhythm: + irregularly irregular; not tachycardic Heart Sounds: normal S1, normal S2 and + murmur Extremities: + edema (Trace edema bilaterally) Gastrointestinal (Abdomen): Inspection/Auscultation: normal bowel sounds; abdomen not distended Percussion/Palpation: abdomen soft; abdomen nontender Neurologic: normal touch/pain/proprioception and moves all extremities (Less movement with the left lower extremity due to fracture) Psychiatric: A+Ox3, euthymic affect Lymphatic: no cervical or axillary lymphadenopathy Results & Data Results & Data Vital Signs (Past 12 Hours) Vital Signs Temp Pulse Pulse Resp BP Pulse Ox O2 Del Method 11/20/24 12:00 36.5 C 114 H 18 96 Nasal Cannula 11/20/24 11:29 110 H 18 100/60 95 Room Air 11/20/24 08:51 125/64 11/20/24 08:00 107 H 11/20/24 07:28 36.5 C 116 H 18 90/55 L 91 Room Air 11/20/24 02:55 36.3 C L 84 18 98/67 L 90 Room Air O2 Flow Rate 11/20/24 12:00 2 11/20/24 11:29 11/20/24 08:51 11/20/24 08:00 11/20/24 07:28 11/20/24 02:55 Laboratory Results Short CBC 11/20/24 Range/Units 06:53 WBC 11.63 H (4.8-10.8) K/ul Hgb 10.3 L (12.0-16.0) g/dl Hct 31.6 L (37.0-47.0) % Plt Count 153 (130-400) K/uL BMP 11/20/24 06:53 Sodium 134 L Potassium 4.0 Chloride 100 Carbon Dioxide 25 BUN 26 H Creatinine 0.87 Glucose 123 H Calcium 8.2 L Medications Administered Current Inpatient Medications Calcium Carbonate (Calcium Carbonate 1,250 Mg/5 Ml Udc) 1,250 mg PO BID AFSHAN Stop: 12/12/24 08:59 Last Admin: 11/20/24 08:10 Dose: 1,250 mg Hydromorphone HCl (Hydromorphone Inj 0.5 Mg/0.5 Ml Syr) 0.25 mg IV Q4H PRN PRN Reason: Pain (Scale 4-10) Stop: 11/20/24 23:15 Last Admin: 11/15/24 15:19 Dose: 0.25 mg Heparin Sodium/Dextrose (Heparin 35521 Unit/500 Ml D5w) 25,000 units in 500 mls @ 19 mls/hr IV .Q24H [facility]; Protocol Stop: 12/11/24 09:59 Last Admin: 11/20/24 10:10 Dose: 950 units/hr, 19 mls/hr Hydrocortisone Sodium (Succinate 50 mg/ Syringe) 1 mls @ 4 mls/min IV DAILY [facility] Stop: 12/18/24 08:59 Last Admin: 11/20/24 08:59 Dose: 4 mls/min Metoprolol Succinate (Metoprolol Succ 50mg Ext Rel Tab) [facility] Stop: 12/20/24 08:59 Last Admin: 11/20/24 08:11 Dose: 50 mg Metoprolol Succinate (Metoprolol Succ 25mg Ext Rel Tab) 25 mg PO HS [facility] Stop: 12/19/24 20:59 Last Admin: 11/19/24 20:26 Dose: Not Given Midodrine (Midodrine Hcl 2.5 Mg Tab) 2.5 mg PO TID@0800,1200,1700 [facility] Stop: 12/19/24 16:59 Last Admin: 11/20/24 11:51 Dose: 2.5 mg Nitroglycerin (Nitroglycerin Sl 0.4 Mg/Tab Tab) 0.4 mg SL Q5M PRN PRN Reason: Chest Pain Stop: 12/06/24 23:15 Ondansetron HCl (Ondansetron Inj 2 Mg/Ml 2 Ml Vial) 4 mg IV Q6H PRN PRN Reason: Nausea And Vomiting Stop: 12/06/24 23:20 Last Admin: 11/14/24 00:06 Dose: 4 mg Oxycodone/Acetaminophen (Oxycodone/Acetaminophen 5mg/325mg Tab) 1 tab PO Q4H PRN PRN Reason: Pain Stop: 11/25/24 09:35 Last Admin: 11/19/24 21:19 Dose: 1 tab Pantoprazole Sodium (Pantoprazole 40 Mg Tab) 40 mg PO QAM [facility] Stop: 12/13/24 08:59 Last Admin: 11/20/24 08:11 Dose: 40 mg Polyethylene Glycol (Polyethylene (Miralax) 17 Gm Pack) 17 gm PO DAILY PRN PRN Reason: Constipation Stop: 12/06/24 23:15 Last Admin: 11/18/24 10:34 Dose: 17 gm Potassium Chloride (Potassium Chloride Crtab 20 Meq Tabcr) 20 meq PO [facility] Stop: 12/20/24 08:59 Last Admin: 11/20/24 08:18 Dose: 20 meq Torsemide (Torsemide 20 Mg Tab) 20 mg PO [facility] Stop: 12/19/24 08:59 Last Admin: 11/20/24 08:11 Dose: 20 mg Vitamin D (Cholecalciferol 125 Mcg (5,000 Units) Tab) 125 mcg PO [facility] Stop: 12/17/24 10:14 Last Admin: 11/20/24 08:10 Dose: 125 mcg Warfarin Sodium (Warfarin Sod 7.5 Mg Tab) 7.5 mg PO DAILY@1600 [facility] Stop: 12/17/24 17:14 Last Admin: 11/19/24 17:55 Dose: 7.5 mg
--- NOTE | 2024-11-20 16:27 | Cardiology Progress Note ---
Date of Service November 20, 2024 Assessment & Plan (1) Chronic heart failure with preserved ejection fraction: (2) Atrial fibrillation: (3) Severe mitral insufficiency: (4) Mitral stenosis: (5) Aortic stenosis: (6) Severe pulmonary hypertension: (7) Closed fracture of left hip: Plan 74-year-old female admitted with hip fracture status post repair suffering postoperative anemia and hypovolemic shock. Hypervolemia noted status post transfusion of packed red blood cells and IV therapies. Volume status improved with IV furosemide. Transitioned to oral torsemide 11/20/23. Elevated heart rates on telemetry. Recommendations: * Titrate toprol XL to 50mg in AM, 25mg in the evening. * Transitioned to oral torsemide 20 mg daily today, 11/19/24. * Reduce potassium supplementation to 20 mEq once daily. * Monitor fluid balance, daily weight, GFR, and electrolytes. * Reduce midodrine to 2.5 mg 3 times daily. * Wean/discontinue midodrine as tolerated. * Metoprolol hold parameters adjusted for systolic blood pressure less than 90 mmHg. * IV heparin bridge for oral warfarin given valvular heart disease. * Warfarin titrated to 7.5 mg daily started 11/17/2024. INR 1.8 as of 11/20 , goal 2-3. Will continue warfarin 7.5 mg daily. * Wean off hydrocortisone. * Continue telemetry monitoring. * Maintain serum hemoglobin greater than 8.0 g/dL Adolfo Ling DO Cardiology Admission and Anticipated Discharge Date Admission Date: November 06, 2024 Subjective Patient seen in cardiology follow-up. Notes generalized fatigue. Atrial fibrillation noted currently with rates in the range of 90 to 105 bpm. Remains on IV heparin. Physical Exam Physical Exam: Temp Pulse Resp BP Pulse Ox O2 Del Method O2 Flow Rate 36.8 C 144 H 20 112/72 94 Nasal Cannula 1 11/20/24 15:11 11/20/24 16:00 11/20/24 15:11 11/20/24 15:11 11/20/24 15:11 11/20/24 15:11 11/20/24 15:11 Constitutional: well nourished and + ill appearing; no acute distress Respiratory: no respiratory distress, no labored breathing and no retractions Auscultation: no crackles, no rales, no rhonchi and no wheezes Cardiovascular: Rate/Rhythm: + irregularly irregular Heart Sounds: normal S1, normal S2 and + murmur (3/6 GORAN heard best at the right second intercostal space) Extremities: no edema (Bilateral pretibial stasis changes) Gastrointestinal (Abdomen): Inspection/Auscultation: normal bowel sounds; abdomen not distended Percussion/Palpation: abdomen nontender and no guarding Neurologic: CN's II-XI intact bilaterally and moves all extremities; no focal motor deficits Results & Data Vital Signs (Past 12 Hours) Vital Signs Temp Pulse Pulse Resp BP Pulse Ox O2 Del Method 11/20/24 16:00 144 H 11/20/24 15:11 36.8 C 94 H 20 112/72 94 Nasal Cannula 11/20/24 12:00 36.5 C 114 H 18 96 Nasal Cannula 11/20/24 11:29 110 H 18 100/60 95 Room Air 11/20/24 08:51 125/64 11/20/24 08:00 107 H 11/20/24 07:28 36.5 C 116 H 18 90/55 L 91 Room Air O2 Flow Rate 11/20/24 16:00 11/20/24 15:11 1 11/20/24 12:00 2 11/20/24 11:29 11/20/24 08:51 11/20/24 08:00 11/20/24 07:28 Laboratory Results INR 1.8 (2) Atrial fibrillation Atrial fibrillation type: unspecified Qualified Code(s): I48.91 - Unspecified atrial fibrillation (4) Mitral stenosis Cardiac valve disease etiology: etiology unspecified Qualified Code(s): I05.0 - Rheumatic mitral stenosis (5) Aortic stenosis Cardiac valve disease etiology: etiology unspecified Qualified Code(s): I35.0 - Nonrheumatic aortic (valve) stenosis (7) Closed fracture of left hip Encounter type: initial encounter Qualified Code(s): S72.002A - Fracture of unspecified part of neck of left femur, initial encounter for closed fracture
[2024-11-21 01:21] LABS: Hematocrit (blood only) 28.8 % (37.0-47.0); Hemoglobin 9.3 g/dl (12.0-16.0)
[2024-11-21 06:05] LABS: Calcium 8.2 mg/dl (8.6-10.3); Magnesium 1.7 mg/dl (1.7-2.4); Potassium 3.6 mmol/L (3.5-5.1)
[2024-11-21 06:11] LABS: BUN Creatinine Ratio 29.3 (10-20); Creatinine Clr Calc Pharmacy 67.9 ml/min
[2024-11-21 06:13] LABS: ANTI-Xa, UFH(UnfractionatedHep < 0.10 IU/ml (0.3-0.7); INR 2.2 (0.9-1.1); Prothrombin Time 21.9 Seconds (9.0-12.0)
--- NOTE | 2024-11-21 11:45 | Hospitalist Progress Note ---
Date of Service November 21, 2024 Assessment & Plan (1) Closed left hip fracture: Plan: 74-year-old female from [place] visiting [place] with past medical history significant for hypertension, CHF who is status post fall with left hip fracture, s/p ORIF on 11/07/24 with postop anemia and hypotension requiring transfer to the ICU. Closed left hip fracture Status post mechanical fall Orthopedics consulted, appreciate recs -s/p ORIF on 11/07/24 -concern for infection on 11/15-11/16: Ortho evaluated, not infection, concern for edema, wound vac placed On diuretics started by cardiology on 11/16/24 PT/OT- recommending acute rehab Appreciate reevaluation by the orthopedic surgeon regarding drainage from the surgical site Wound VAC has been placed and draining small amount of serous fluid Doubt any infection Denies any significant pain in the joints and the drainage seems to be decreased Denies any significant pain and swelling involving the surgical site left upper thigh and hip Noted to have bleeding from the wound VAC drain is last night but after about 2 AM no more bleeding following changing of the wound VAC She denies any significant pain and this morning drainage seems to be minimal serosanguineous Awaiting Ortho evaluation Hypotension Hypotensive Shock Pt with postop hypotensive shock requiring transfer to the ICU Required vasopressor support x2 Was on midodrine 10mg TID, hydrocortisone and florinef for adrenal support- being weaned Home antihypertensives on hold Improving, downgraded from the ICU on 11/13 after off of pressors for some time On Toprol 25mg BID with hold parameters decreased Hydrocortisone being weaned, midodrine down to 5mg TID Pt now on diuretic from 11/16/24 Still has occasional hypotension and she is off any pressor agents Has been on metoprolol succinate 25 mg twice daily and also midodrine for blood pressure support Her blood pressure remains stable at 140/70 and heart rate is controlled at 95 Blood pressure remains stable at systolic 100 Blood pressure remains on the lower side at 106/68 Her hydrocortisone is stopped today Acute Blood Loss Anemia post op, requiring 3U pRBCs thus far CT abd/pelvis noting large hematoma Heparin previously on hold, has since been resumed with start of warfarin for valvular a fib. Hgb stable Continue to monitor Hemoglobin remains stable at 9.3 hemoglobin remains stable at 10.3 as of Hemoglobin remains stable at 9.3 Acute depression Feels very depressed and wanted to have some help Appreciate psychiatrist input and recommendation Plan to start duloxetine 20 mg daily after about 4 weeks to decrease the risk of bleeding She is agreeable to start duloxetine 20 mg daily after about 4 weeks (2) Chronic heart failure with preserved ejection fraction: Plan: Acute on Chronic heart failure with preserved EF Hypoxia Now with evidence of acute CHF during this admission Extremities swollen Seeping fluid out of surgical left hip wound Cardiology consulted, appreciate recs -started on IV Lasix 20mg BID on 11/16 Wean oxygen as tolerated No evidence of fluid overload Significant valvular heart disease Has moderate aortic stenosis, severe mitral valve stenosis and moderate mitral regurgitation Severe pulmonary hypertension as well Echo with EF 65-70%, mod LVH, LA severely dilated, mild to mod , mild MS, severe MR will likely need valvular heart surgery will need to have follow-up appointments with Cardiac/Thoracic surgeon as an outpatient (3) Atrial fibrillation with controlled ventricular response: Plan: Atrial Fibrillation with RVR Has significant valvular heart disease with atrial fibrillation and increased ventricular rate Was on IV amiodarone, then transitioned to oral amiodarone before being discontinued. Pt was then started on Toprol Anticoagulation previously on hold in the setting of acute blood loss anemia- heparin resumed. Warfarin restarted with heparin bridge Cardiology consulted and managing, appreciate recs Improving 11/14- INR on 11/07 1.3. started on warfarin today with heparin bridge. Will need close monitoring of H/H 11/15- continuing Toprol XL 25mg BID with warfarin and heparin bridge, hgb stable at 8.3 11/16-hgb stable >8, INR still 1.1. Continue warfarin with heparin bridge 11/17- hgb stable at 8.6, INR 1.1 but noted PT of 12.3. Given hematoma and severe bleed hx will defer on additional extra warfarin doses at this time. INR remains subtherapeutic at 1.2 Will continue Warferin at 7.5 mg daily and monitor INR INR is 1.5 today and will continue Coumadin at 7.5 mg daily Heart rate is elevated at 114- continue beta-jose and will observe Heart rate remains elevated at around 108 (4) Severe pulmonary hypertension: (5) Severe mitral valve stenosis: (6) Moderate mitral regurgitation: Plan Leukocytosis Has been elevated Likely in setting of steroid use No current signs of infection Continue to monitor Diet: DVT prophylaxis: warfarin with heparin bridge Will continue with IV heparin and oral Coumadin for now INR is 1.8 today Likely to be therapeutic tomorrow and possible discharge tomorrow if remains stable INR is 2 point today and heparin will be stopped it has been on hold since last night Dispo: per PT/OT recs- recommending acute rehab Admission and Anticipated Discharge Date Admission Date: November 06, 2024 Subjective 11/07/2024 The patient was seen and examined in the telemetry unit She was admitted with a mechanical fall and fracture of the left hip Noted to have atrial fibrillation on admission Denies any chest pain and/or palpitation Complains pain in the left hip with any movement of the left lower extremity 11/08/2024 The patient was seen and examined in ICU She remains extremely weak and lethargic She has been on 2 pressor support now and has been started on intravenous amiodarone to control the heart rate Denies any chest pain and/or palpitation and does not have any shortness of breath at rest No abdominal pain nausea and/or vomiting 11/09/2024 The patient was seen and examined in ICU She has been feeling a little better following blood transfusion Feels tired otherwise denies any significant pain or other symptoms 11/10/2024 The patient was seen and examined in ICU She has been feeling much better and denies any significant symptoms No shortness of breath and no pain at rest 11/18/2024 The patient was seen and examined in telemetry unit She has been feeling much better but remains weak and lethargic Her blood pressure was noted to be low this morning with lower 80s without any symptoms at rest Complains of occasional dizziness with ambulation which has not been new symptom s for her 11/19/2024 The patient was seen and examined in the telemetry unit She has been better but feels very depressed Denies any other significant symptoms 11/20/2024 The patient was seen and examined in telemetry unit She has been feeling better but remains weak Has had some shortness of breath following changing of bed position and she is trying to come out of bed Heart rate is noted to be high at 114 11/21/2024 The patient was seen and examined in telemetry unit She remains weak and lethargic but denies any other significant symptoms Noted to have bleeding from the drain this from the wound VAC and the wound VAC was changed at around 2 AM without evidence of bleeding Awaiting further evaluation by the Ortho Review of Systems Review of Systems: All systems reviewed and are unremarkable except as noted below Physical Exam Physical Exam: Lying in bed with minimal shortness of breath at rest and distress generally Constitutional: well developed, well nourished, + ill appearing and + obese Eyes: PERRL, conjunctivae normal, anicteric sclerae ENMT: external ear and nose normal, oropharynx normal Neck: trachea midline, no thyromegaly Respiratory: no respiratory distress Auscultation: lungs clear to auscultation bilaterally and + diminished lung sounds ( minimal crackles at the bases) Cardiovascular: Rate/Rhythm: + irregularly irregular; not tachycardic Heart Sounds: normal S1, normal S2 and + murmur Extremities: + edema (Trace edema bilaterally) Gastrointestinal (Abdomen): Inspection/Auscultation: normal bowel sounds; abdomen not distended Percussion/Palpation: abdomen soft; abdomen nontender Musculoskeletal: Has pain with movement of the left hip with no acute arthritis involving any of the joint Skin: Minimal redness in the wound VAC serous without any significant bleeding Neurologic: normal touch/pain/proprioception and moves all extremities (Less movement with the left lower extremity due to fracture) Psychiatric: A+Ox3, euthymic affect Lymphatic: no cervical or axillary lymphadenopathy Results & Data Results & Data Vital Signs (Past 12 Hours) Vital Signs Temp Pulse Pulse Resp BP BP Pulse Ox 11/21/24 11:06 106/68 11/21/24 11:04 36.5 C 20 88/64 L 92 11/21/24 08:00 108 H 11/21/24 07:08 36.5 C 90 18 111/77 92 11/21/24 02:26 36.7 C 90 16 98/62 L 96 O2 Del Method 11/21/24 11:06 11/21/24 11:04 Room Air 11/21/24 08:00 11/21/24 07:08 Room Air 11/21/24 02:26 Room Air Laboratory Results Short CBC 11/21/24 Range/Units 00:57 Hgb 9.3 L (12.0-16.0) g/dl Hct 28.8 L (37.0-47.0) % BMP 11/21/24 05:27 Sodium 132 L Potassium 3.6 Chloride 100 Carbon Dioxide 26 BUN 27 H Creatinine 0.92 Glucose 101 H Calcium 8.2 L Medications Administered Current Inpatient Medications Calcium Carbonate (Calcium Carbonate 1,250 Mg/5 Ml Udc) 1,250 mg PO BID [facility] Stop: 12/12/24 08:59 Last Admin: 11/21/24 08:27 Dose: 1,250 mg Metoprolol Succinate (Metoprolol Succ 50mg Ext Rel Tab) 50 mg PO QAM [facility] Stop: 12/20/24 08:59 Last Admin: 11/21/24 08:28 Dose: 50 mg Metoprolol Succinate (Metoprolol Succ 25mg Ext Rel Tab) 25 mg PO HS [facility] Stop: 12/19/24 20:59 Last Admin: 11/20/24 21:49 Dose: 25 mg Midodrine (Midodrine Hcl 2.5 Mg Tab) 2.5 mg PO TID@0800,1200,1700 [facility] Stop: 12/19/24 16:59 Last Admin: 11/21/24 11:33 Dose: 2.5 mg Nitroglycerin (Nitroglycerin Sl 0.4 Mg/Tab Tab) 0.4 mg SL Q5M PRN PRN Reason: Chest Pain Stop: 12/06/24 23:15 Ondansetron HCl (Ondansetron Inj 2 Mg/Ml 2 Ml Vial) 4 mg IV Q6H PRN PRN Reason: Nausea And Vomiting Stop: 12/06/24 23:20 Last Admin: 11/14/24 00:06 Dose: 4 mg Oxycodone/Acetaminophen (Oxycodone/Acetaminophen 5mg/325mg Tab) 1 tab PO Q4H PRN PRN Reason: Pain Stop: 11/25/24 09:35 Last Admin: 11/20/24 21:48 Dose: 1 tab Pantoprazole Sodium (Pantoprazole 40 Mg Tab) 40 mg PO [facility] Stop: 12/13/24 08:59 Last Admin: 11/21/24 08:28 Dose: 40 mg Polyethylene Glycol (Polyethylene (Miralax) 17 Gm Pack) 17 gm PO DAILY PRN PRN Reason: Constipation Stop: 12/06/24 23:15 Last Admin: 11/18/24 10:34 Dose: 17 gm Potassium Chloride (Potassium Chloride Crtab 20 Meq Tabcr) [facility] 12/20/24 08:59 Last Admin: 11/21/24 08:28 Dose: 20 meq Torsemide (Torsemide 20 Mg Tab) 20 [facility] [place]: 12/19/24 08:59 Last Admin: 11/21/24 08:28 Dose: 20 mg Vitamin D (Cholecalciferol 125 Mcg (5,000 Units) Tab) 125 mcg [facility] [place]: 12/17/24 10:14 Last Admin: 11/21/24 08:27 Dose: 125 mcg Warfarin Sodium (Warfarin Sod 7.5 Mg Tab) 7.5 mg PO DAILY@1600 [facility] Stop: 12/17/24 17:14 Last Admin: 11/20/24 16:42 Dose: 7.5 mg
--- NOTE | 2024-11-21 12:05 | Orthopedic Progress Note ---
Date of Service November 21, 2024 Assessment & Plan (1) Closed left hip fracture: Plan: I was notified by nursing staff that the patient filled 2 of the Prevena canisters overnight (each canister is 35 cc), and a new foam dressing had been applied. Patient's heparin was held due to the bleeding. Upon evaluation, it appears that the canister is full again with no suction on the foam, and there is a small amount of blood underneath the occlusive dressing. Hemoglobin today is 9.3 from 10.3 yesterday. I coordinated with the wound care nurse who is going to apply a hospital wound VAC to the Jennifer tubing for now so the canisters do not need to be changed as frequently. Dr. Fitch in the OR this morning however sent message to him regarding findings. He requested we reach out to interventional radiology to see if they might be able to assist. Currently awaiting callback from IR. Advised nursing to communicate with us before administering warfarin today at 1600. Patient otherwise seems to be resting comfortably with no increase in pain. She does have swelling and warmth to the left hip but no erythema and distal thigh is soft. She is neurovascularly intact. Will continue to coordinate with Dr. Fitch and specialists today to determine plan moving forward. Admission and Anticipated Discharge Date Admission Date: November 06, 2024 Supervising Physician Co-Signing Physician Notes I, Dr. Fitch, saw and examined the patient and agree with the above findings and plan of care. LLE: NV intact. Distal incisions healing nicely, no evidence of infection. Wound vac removed. Proximal incision central staple pulled through 1 edge, with old bloody drainage. Significant bruising buttock. calf soft and non-tender. IMPRESSION: 2 weeks s/p ORIF L hip fracture, draining wound PLAN: Discussed with Wound care to hold Wound vac due to amount of drainage. Spoke with IR, currently no ability to coil any vessels. Removed and replaced stacey from distal incisions with steri strips.Removed loose staple in Proximal incision. Covered proximal incision with Aquacel, 4x4, ABD, tape. Check labs in am NPO after MN possible I&D if continued drainage Subjective Michelle is seen in bed this morning. She was sleeping initially, states that she did not get much sleep last night. She denies any significant pain in the left hip. Has not been up with physical therapy. Denies any numbness or tingling in her left leg. Physical Exam Constitutional: Resting comfortably, no distress Cardiovascular: Left DP pulse 2+ Musculoskeletal: Left lower extremity: Prevena dressing is in place over the lateral hip. There is no suction on the foam currently, and there is blood in the foam beneath the occlusive dressing. The Jennifer canister is full. Soft tissue about the left hip is warm with some swelling. No erythema. No tenderness to palpation. Dist al thigh is soft and nontender. No calf tenderness. Strength 5/5 with left ankle plantarflexion, dorsiflexion, eversion Neurologic: No sensory deficits left lower extremity to light touch L3-S1 distribution Results & Data Vital Signs (Past 12 Hours) Vital Signs Temp Pulse Pulse Resp BP BP Pulse Ox 11/21/24 11:06 106/68 11/21/24 11:04 97.7 F 20 88/64 L 92 11/21/24 08:00 108 H 11/21/24 07:08 97.7 F 90 18 111/77 92 11/21/24 02:26 98.1 F 90 16 98/62 L 96 O2 Del Method 11/21/24 11:06 11/21/24 11:04 Room Air 11/21/24 08:00 11/21/24 07:08 Room Air 11/21/24 02:26 Room Air Laboratory Results 11/21/24 11/21/24 05:27 00:57 Hgb 9.3 L Hct 28.8 L PT 21.9 H INR 2.2 H Heparin Anti-Xa, Unfract < 0.10 L Sodium 132 L Potassium 3.6 Chloride 100 Carbon Dioxide 26 Anion Gap 6 BUN 27 H Creatinine 0.92 Est Cr Clr Drug Dosing 67.9 eGFR 65.34 BUN/Creatinine Ratio 29.3 H Glucose 101 H Calcium 8.2 L Magnesium 1.7
--- NOTE | 2024-11-21 13:36 | Cardiology Progress Note ---
Date of Service November 21, 2024 Assessment & Plan (1) Chronic heart failure with preserved ejection fraction: (2) Atrial fibrillation: (3) Severe mitral insufficiency: (4) Mitral stenosis: (5) Aortic stenosis: (6) Severe pulmonary hypertension: (7) Closed fracture of left hip: Plan: -With postoperative left thigh/buttock hematoma Plan 74-year-old female admitted with hip fracture status post repair suffering postoperative anemia and hypovolemic shock. Hypervolemia noted status post transfusion of packed red blood cells and IV therapies. Volume status improved with IV furosemide. Transitioned to oral torsemide 11/20/23. Elevated heart rates on telemetry. Recommendations: * Continue toprol XL to 50mg in AM, 25mg in the evening. * Transitioned to oral torsemide 20 mg daily today, 11/19/24. * Reduce potassium supplementation to 20 mEq once daily. * Monitor fluid balance, daily weight, GFR, and electrolytes. * midodrine to 2.5 mg 3 times daily. * Wean/discontinue midodrine as tolerated. * Metoprolol hold parameters adjusted for systolic blood pressure less than 90 mmHg. * Continue telemetry monitoring. * Heparin bridge held due to concerns of incisional bleed evening of 11/20 into 11/21/2024. INR today 11/21/2024 now therapeutic at 2.2 hold Coumadin today. Hemoglobin relatively stable, 9.3 today as compared to 10.3 yesterday * Maintain serum hemoglobin greater than 8 g/dL Adolfo Ling DO Cardiology Admission and Anticipated Discharge Date Admission Date: November 06, 2024 Subjective Patient seen in cardiology follow-up. Denies chest pain, subjective palpitations or shortness of breath. Issues overnight noted with serosanguineous drainage into the drain from her left lateral hip/thigh incision. Telemetry reveals atrial fibrillation with rate ranging from 80 bpm to 110 bpm Physical Exam Physical Exam: Temp Pulse Resp BP Pulse Ox O2 Del Method O2 Flow Rate 36.5 C 108 H 20 106/68 92 Room Air 1 11/21/24 11:04 11/21/24 08:00 11/21/24 11:04 11/21/24 11:06 11/21/24 11:04 11/21/24 11:04 11/20/24 15:11 Constitutional: well nourished and + ill appearing; no acute distress Respiratory: no respiratory distress, no labored breathing and no retractions Auscultation: no crackles, no rales, no rhonchi and no wheezes Cardiovascular: Rate/Rhythm: + irregularly irregular Heart Sounds: normal S1, normal S2 and + murmur (3/6 GORAN heard best at the right second intercostal space) Extremities: no edema (Bilateral pretibial stasis changes) Gastrointestinal (Abdomen): Inspection/Auscultation: normal bowel sounds; abdomen not distended Percussion/Palpation: abdomen nontender and no guarding Neurologic: CN's II-XI intact bilaterally and moves all extremities; no focal motor deficits Results & Data Vital Signs (Past 12 Hours) Vital Signs Temp Pulse Pulse Resp BP BP Pulse Ox 11/21/24 11:06 106/68 11/21/24 11:04 36.5 C 20 88/64 L 92 11/21/24 08:00 108 H 11/21/24 07:08 36.5 C 90 18 111/77 92 11/21/24 02:26 36.7 C 90 16 98/62 L 96 O2 Del Method 11/21/24 11:06 11/21/24 11:04 Room Air 11/21/24 08:00 11/21/24 07:08 Room Air 11/21/24 02:26 Room Air Laboratory Results Coagulation 11/21/24 Range/Units 05:27 PT 21.9 H (9.0-12.0) Seconds CBC 11/21/24 Range/Units 00:57 Hgb 9.3 L (12.0-16.0) g/dl Hct 28.8 L (37.0-47.0) % Comprehensive Metabolic Panel 11/21/24 Range/Units 05:27 Sodium 132 L (136-145) mmol/L Potassium 3.6 (3.5-5.1) mmol/L Chloride 100 (98-107) mmol/L Carbon Dioxide 26 (21-32) mmol/L BUN 27 H (6-23) mg/dl Creatinine 0.92 (0.6-1.2) mg/dl Glucose 101 H (70-99(Fasting)) mg/dl Calcium 8.2 L (8.6-10.3) mg/dl Intake and Output 11/20/24 11/21/24 11/21/24 22:59 06:59 14:59 Intake Total 270.683 / 868.100 310.517 / 868.100 Output Total 150 / 650 500 / 650 Balance 120.683 / 218.100 -189.483 / 218.100 Intake: IV 170.683 / 568.100 110.517 / 568.100 Heparin 32510 Unit/500 ml D5w 170.683 / 568.100 110.517 / 568.100 25,000 units In 500 ml @ 950 UNITS/HR 19 mls/hr IV .Q24H AFSHAN Rx#:[id number] Oral 100 / 300 200 / 300 Output: Urine Amount (Catheter) 150 / 650 500 / 650 External 150 / 650 500 / 650 Other: # Unmeasured Voids 1 Weight 111.5 kg (2) Atrial fibrillation Atrial fibrillation type: unspecified Qualified Code(s): I48.91 - Unspecified atrial fibrillation (4) Mitral stenosis Cardiac valve disease etiology: etiology unspecified Qualified Code(s): I05.0 - Rheumatic mitral stenosis (5) Aortic stenosis Cardiac valve disease etiology: etiology unspecified Qualified Code(s): I35.0 - Nonrheumatic aortic (valve) stenosis (7) Closed fracture of left hip Encounter type: initial encounter Qualified Code(s): S72.002A - Fracture of unspecified part of neck of left femur, initial encounter for closed fracture
[2024-11-22 07:42] LABS: Basophils # (auto) 0.02 K/uL (0.00-0.20); Basophils % (auto) 0.3 %; Eosinophils # (auto) 0.02 K/uL (0.00-0.50); Eosinophils % (auto) 0.3 %; Hematocrit (blood only) 31.3 % (37.0-47.0); Immature Granulocytes % (auto) 1.3 %; Lymphocytes % (auto) 9.4 %; Mean Corpuscular Hemoglobin 33.1 pg (25.0-34.0); Mean Corpuscular Hgb Conc 31.9 g/dL (32.0-36.0); Mean Corpuscular Volume 103.6 fL (80.0-100.0); Mean Platelet Volume 10.9 fL (9.4-12.4); Monocytes # (auto) 0.55 K/uL (0.11-0.59); Monocytes % (auto) 7.4 %; Neutrophils # (auto) 6.04 K/uL (1.40-6.50); Neutrophils % (auto) 81.3 %; Nucleated RBC # (auto) 0.06 K/uL (0.00-0.12); Nucleated RBC % (auto) 0.8 %; Platelet Count 133 K/uL (130-400); RDW Coefficient of Variation 28.9 % (11.5-14.5); RDW Standard Deviation 99.9 fL (36.4-46.3); Red Blood Count 3.02 M/uL (4.20-5.40); White Blood Count 7.43 K/ul (4.8-10.8)
[2024-11-22 07:58] LABS: BUN Creatinine Ratio 31.1 (10-20); Calcium 8.1 mg/dl (8.6-10.3); Creatinine Clr Calc Pharmacy 69.3 ml/min; Magnesium 1.7 mg/dl (1.7-2.4); Potassium 3.5 mmol/L (3.5-5.1)
[2024-11-22 08:07] LABS: Anisocytosis Present; Polychromasia 2+; Tear Drop Cells 1+
[2024-11-22 08:19] LABS: INR 1.9 (0.9-1.1); Prothrombin Time 19.1 Seconds (9.0-12.0)
--- NOTE | 2024-11-22 08:40 | Orthopedic Progress Note ---
Date of Service November 22, 2024 Assessment & Plan (1) Closed left hip fracture: Plan: IMPRESSION: 13 days s/p ORIF L hip fracture, draining wound, concern for developing Crow Maria Luisa lesion PLAN: Hgb stable 10 today. Spoke with IR, currently no ability to coil any vessels at [facility]. Replaced proximal incision dressing with Aquacel, 4x4, ABD, tape. INR is 1.9 still too high for surgical intervention Will obtain CTA Left hip If active bleeding would recommend transfer to facility with ability IR that can possibly coil the vessel If no active bleeding will continue to monitor INR and wound with possible I&D Sunday or Sunday Spoke with primary team, patient, and her son Continue care per primary service Admission and Anticipated Discharge Date Admission Date: November 06, 2024 Subjective Feeling a bit better Physical Exam Physical Exam: LLE: NV intact. Distal incisions healing nicely, no evidence of infection. Proximal incision with old bloody drainage and dressing with fresh bloody drainage. Significant bruising buttock. calf soft and non-tender. Negative Celi. Results & Data Vital Signs (Past 12 Hours) Vital Signs Temp Pulse Pulse Resp BP BP Pulse Ox 11/22/24 07:03 36.6 C 86 16 93/66 L 92 11/22/24 00:00 103 H 11/21/24 21:32 61 18 102/64 93 O2 Del Method 11/22/24 07:03 Room Air 11/22/24 00:00 11/21/24 21:32 Room Air Laboratory Results 11/22/24 Range/Units 06:56 WBC 7.43 (4.8-10.8) K/ul RBC 3.02 L (4.20-5.40) M/uL Hgb 10.0 L (12.0-16.0) g/dl Hct 31.3 L (37.0-47.0) % MCV 103.6 H (80.0-100.0) fL MCH 33.1 (25.0-34.0) pg MCHC 31.9 L (32.0-36.0) g/dL RDW Std Deviation 99.9 H (36.4-46.3) fL RDW Coeff of Gifty 28.9 H (11.5-14.5) % Plt Count 133 (130-400) K/uL MPV 10.9 (9.4-12.4) fL Immature Gran % (Auto) 1.3 % Neut % (Auto) 81.3 % Lymph % (Auto) 9.4 % [place] % (Auto) 7.4 % Eos % (Auto) 0.3 % Baso % (Auto) 0.3 % Neut # (Auto) 6.04 (1.40-6.50) K/uL Lymph # (Auto) 0.70 L (1.20-3.40) K/uL [place] # (Auto) 0.55 (0.11-0.59) K/uL Eos # (Auto) 0.02 (0.00-0.50) K/uL Baso # (Auto) 0.02 (0.00-0.20) K/uL Immature Gran # (Auto) 0.10 (0.01-0.20) K/uL Absolute Nucleated RBC 0.06 (0.00-0.12) K/uL Nucleated RBC % (auto) 0.8 % Polychromasia 2+ Anisocytosis Present Tear Drop Cells 1+ PT 19.1 H (9.0-12.0) Seconds INR 1.9 H (0.9-1.1) Sodium 135 L (136-145) mmol/L Potassium 3.5 (3.5-5.1) mmol/L Chloride 100 (98-107) mmol/L Carbon Dioxide 26 (21-32) mmol/L Anion Gap 9 (3-11) BUN 28 H (6-23) mg/dl Creatinine 0.90 (0.6-1.2) mg/dl Est Cr Clr Drug Dosing 69.3 ml/min eGFR 67.08 BUN/Creatinine Ratio 31.1 H (10-20) Glucose 101 H (70-99(Fasting)) mg/dl Calcium 8.1 L (8.6-10.3) mg/dl Magnesium 1.7 (1.7-2.4) mg/dl
[2024-11-22] MEDS: OPTIRAY 320 125ml IV ONE (09:20)
--- NOTE | 2024-11-22 09:49 | CT Scan Report ---
EXAM: CT Angiography Abdomen and Pelvis Without and With Intravenous Contrast INDICATION: Assess for active bleeding. TECHNIQUE: Axial computed tomographic angiography images of the abdomen and pelvis without and with intravenous contrast. Sagittal and coronal reformatted images were created and reviewed. This CT exam was performed using one or more of the following dose reduction techniques: automated exposure control, adjustment of the mA and/or kV according to patient size, and/or use of iterative reconstruction technique. MIP reconstructed images were created and reviewed. CONTRAST: 118ml of Optiray 320 was administered intravenously. COMPARISON: CT abdomen pelvis 11/08/2024 FINDINGS: VASCULATURE: Aorta: Atherosclerotic calcification of the aorta and branches. No aneurysm. Celiac trunk and mesenteric arteries: No acute change noted. No occlusion or significant stenosis. Renal arteries: No acute change noted. No occlusion or significant stenosis. Iliac arteries: No acute change noted. No occlusion or significant stenosis. Lung bases: See below. Pleural space: Increased small bilateral layering pleural effusions and bilateral lower lobe dependent atelectasis. Heart: Stable cardiomegaly. Dense mitral annular calcification. No pericardial effusion. ABDOMEN: Liver: No abnormality noted. No mass. Gallbladder and bile ducts: Cholecystectomy. No ductal dilation or stone noted. Pancreas: No abnormality noted. No ductal dilation. No mass. Spleen: No abnormality noted. No splenomegaly. Adrenals: No abnormality noted. No mass. Kidneys and ureters: Stable 2 mm nonobstructing left kidney stone. Right kidney appears normal. Stomach and bowel: No abnormality noted. No obstruction. No mucosal thickening. PELVIS: Appendix: No findings to suggest acute appendicitis. Bladder: There is a small amount of air in the urinary bladder. Previously seen Gutierrez catheter no longer present. No stones. Reproductive: No significant abnormality noted. ABDOMEN and PELVIS: Intraperitoneal space: There is a small amount of layering fluid in the presacral space. No abscess or free air. Bones/joints: Internally fixed intertrochanteric fracture of the left femur noted. Visualized portion of the hardware well-seated. There is severe arthritic change of the left hip. Mild degenerative changes right hip. There is accentuated lumbar lordosis and diffuse facet arthrosis and mild spondylosis. Soft tissues: There is irregular gas, subcutaneous hematoma and generalized contusional changes in the subcutaneous fat lateral to the left hip. No acute extravasation identified. The area in total a measures greatest transverse diameter of approximately 1 and 11 cm transverse by 16 cm long. 5 9 cm AP. There is increased conspicuity of subcutaneous contusion in the right lateral pannus. Lymph nodes: No abnormality noted. No enlarged lymph nodes. IMPRESSION: 1. Hematoma and generalized subcutaneous contusion lateral to the left hip as above. No active extravasation noted. 2. Increased small layering pleural effusions and bilateral lower lobe compressive atelectasis. ACT 112: N/A Electronically signed by Ana Paula Stock 11-22-2024 09:49 AM
[2024-11-22] MEDS: D5NSS + 20MEQ KCL 20 MEQ/1,000 ML BAG IV SCH (10:03)
--- NOTE | 2024-11-22 11:01 | Cardiology Progress Note ---
<Statement entered by Sharon Rushing DO - 11/22/24 12:26> I have reviewed the advanced practitioner's documentation and agree with the plan of care. I accept the responsibility for the associated risk. Pt seen in cardiology f/u due to permanent AF with RVR, Hypotension due to large left hip hematoma after mechanical fall complicated with left hip fracture back in 11/07/[address] today revealed large hematoma that is not actively bleeding; general surgery is planning I&D tomorrow which I think is reasonable given the size it will take a long time to resolve without intervention thereby prompting possible risk for infection. From a cardiac perspective she is at an acceptable moderate risk for the procedure She does have some pleural effusions on imaging and given her moderate RVR with the AF and underlying severe MR recommend IV lasix today along with potassium; I spoke with the hospitalist I would not give any IVF even when she is NPO tomorrow Give a dose of IV digoxin today for rate control 250mcg one time hold coumadin today given she is going to OR tomorrow Continue other cardiac medications I discussed the and case my plan with the hospitalist he agreed with my recommendations Date of Service November 22, 2024 Assessment & Plan (1) Atrial fibrillation with controlled ventricular response: Plan Atrial fibrillation. Resting echocardiography suggests low likelihood of restoring and maintaining sinus rhythm. Recommend rate control. Continue metoprolol succinate as blood pressure allows. Add digoxin for additional heart rate control noting observed hypotension Pelvis CTA with hematoma and generalized subcutaneous contusion lateral to the left hip without active extravasation. INR 1.9 today. Left hip hematoma possibly requiring IR intervention or I&D as per Orthopedics. Hold Coumadin. Heart failure with preserved ejection fraction, valvular heart disease, severe pulmonary hypertension. CT imaging with increased small layering pleural effusions with bilateral lower lobe compressive atelectasis Supplement potassium and magnesium then add IV digoxin, ? low-dose IV furosemide this afternoon Admission and Anticipated Discharge Date Admission Date: November 06, 2024 Subjective Patient seen and examined. Chart, medications, telemetry reviewed. [id number] and grandson at bedside + Palpitations. No chest pain. Physical Exam Physical Exam: General: Pleasant. Comfortable. Neck: No overt JVD. Heart: Irregularly irregular at 110 bpm. + Systolic and diastolic murmur. Lungs: Clear anteriorly. Extremities: Stasis changes. Mild distal edema. Results & Data Vital Signs (Past 12 Hours) Vital Signs Temp Pulse Pulse Resp BP Pulse Ox O2 Del Method 11/22/24 07:03 36.6 C 86 16 93/66 L 92 Room Air 11/22/24 05:48 79 11/22/24 00:00 103 H Laboratory Results Coagulation 11/22/24 Range/Units 06:56 PT 19.1 H (9.0-12.0) Seconds CBC 11/22/24 Range/Units 06:56 WBC 7.43 (4.8-10.8) K/ul RBC 3.02 L (4.20-5.40) M/uL Hgb 10.0 L (12.0-16.0) g/dl Hct 31.3 L (37.0-47.0) % Plt Count 133 (130-400) K/uL Neut # (Auto) 6.04 (1.40-6.50) K/uL Lymph # (Auto) 0.70 L (1.20-3.40) K/uL [place] # (Auto) 0.55 (0.11-0.59) K/uL Eos # (Auto) 0.02 (0.00-0.50) K/uL Baso # (Auto) 0.02 (0.00-0.20) K/uL Comprehensive Metabolic Panel 11/22/24 Range/Units 06:56 Sodium 135 L (136-145) mmol/L Potassium 3.5 (3.5-5.1) mmol/L Chloride 100 (98-107) mmol/L Carbon Dioxide 26 (21-32) mmol/L BUN 28 H (6-23) mg/dl Creatinine 0.90 (0.6-1.2) mg/dl Glucose 101 H (70-99(Fasting)) mg/dl Calcium 8.1 L (8.6-10.3) mg/dl Intake and Output 11/21/24 11/22/24 11/22/24 22:59 06:59 14:59 Intake Total 250 / 450 200 / 450 Output Total 700 / 701 Balance -450 / -251 199 / -251 Intake: IV 0 / 0 Heparin 63840 Unit/500 ml D5w 0 / 0 25,000 units In 500 ml @ 0 UNITS/HR IV .Q0M [facility] [place] Rx#: [id number] Oral 250 / 450 200 / 450 Output: Urine Amount (Catheter) 700 / 700 External 700 / 700 # Bowel Movements Other: Weight 111.3 kg
--- NOTE | 2024-11-22 12:19 | Hospitalist Progress Note ---
Date of Service November 22, 2024 Assessment & Plan (1) Closed left hip fracture: Plan: 74-year-old female from [facility] with past medical history significant for hypertension, CHF who is status post fall with left hip fracture, s/p ORIF on 11/07/24 with postop anemia and hypotension requiring transfer to the ICU. Closed left hip fracture Status post mechanical fall Orthopedics consulted, appreciate recs -s/p ORIF on 11/07/24 -concern for infection on 11/15-11/16: Ortho evaluated, not infection, concern for edema, wound vac placed On diuretics started by cardiology on 11/16/24 PT/OT- recommending acute rehab Appreciate reevaluation by the orthopedic surgeon regarding drainage from the surgical site Wound VAC has been placed and draining small amount of serous fluid Doubt any infection Denies any significant pain in the joints and the drainage seems to be decreased Denies any significant pain and swelling involving the surgical site left upper thigh and hip Noted to have bleeding from the wound VAC drain is last night but after about 2 AM no more bleeding following changing of the wound VAC She denies any significant pain and this morning drainage seems to be minimal serosanguineous Bleeding from the wound through the wound VAC CT of the left hip with contrast did not show any acute bleeding Seems to be hematoma with resolving and appreciate Ortho's recommendation to washout likely tomorrow or day after Hemoglobin remains Stable and INR is 1.9 Will keep her n.p.o. after midnight and hold Coumadin Hypotension Hypotensive Shock Pt with postop hypotensive shock requiring transfer to the ICU Required vasopressor support x2 Was on midodrine 10mg TID, hydrocortisone and florinef for adrenal support- being weaned Home antihypertensives on hold Improving, downgraded from the ICU on 11/13 after off of pressors for some time On Toprol 25mg BID with hold parameters decreased Hydrocortisone being weaned, midodrine down to 5mg TID Pt now on diuretic from 11/16/24 Still has occasional hypotension and she is off any pressor agents Has been on metoprolol succinate 25 mg twice daily and also midodrine for blood pressure support Her blood pressure remains stable at 140/70 and heart rate is controlled at 95 Blood pressure remains stable at systolic 100 Blood pressure remains on the lower side at 106/68 Her hydrocortisone is stopped today Her blood pressure remains on the softer side at 94/64 Acute Blood Loss Anemia post op, requiring 3U pRBCs thus far CT abd/pelvis noting large hematoma Heparin previously on hold, has since been resumed with start of warfarin for valvular a fib. Hgb stable Continue to monitor Hemoglobin remains stable at 9.3 hemoglobin remains stable at 10.3 as of 11/20/2024 Hemoglobin remains stable at 9.3 Acute depression Feels very depressed and wanted to have some help Appreciate psychiatrist input and recommendation Plan to start duloxetine 20 mg daily after about 4 weeks to decrease the risk of bleeding She is agreeable to start duloxetine 20 mg daily after about 4 weeks (2) Chronic heart failure with preserved ejection fraction: Plan: Acute on Chronic heart failure with preserved EF Hypoxia Now with evidence of acute CHF during this admission Extremities swollen Seeping fluid out of surgical left hip wound Cardiology consulted, appreciate recs -started on IV Lasix 20mg BID on 11/16 Wean oxygen as tolerated No evidence of fluid overload Significant valvular heart disease Has moderate aortic stenosis, severe mitral valve stenosis and moderate mitral regurgitation Severe pulmonary hypertension as well Echo with EF 65-70%, mod LVH, LA severely dilated, mild to mod , mild MS, severe MR will likely need valvular heart surgery will need to have follow-up appointments with Cardiac/Thoracic surgeon as an outpatient (3) Atrial fibrillation with controlled ventricular response: Plan: Atrial Fibrillation with RVR Has significant valvular heart disease with atrial fibrillation and increased ventricular rate Was on IV amiodarone, then transitioned to oral amiodarone before being discontinued. Pt was then started on Toprol Anticoagulation previously on hold in the setting of acute blood loss anemia- heparin resumed. Warfarin restarted with heparin bridge Cardiology consulted and managing, appreciate recs Improving 11/14- INR on 11/07 1.3. started on warfarin today with heparin bridge. Will need close monitoring of H/H 11/15- continuing Toprol XL 25mg BID with warfarin and heparin bridge, hgb stable at 8.3 11/16-hgb stable >8, INR still 1.1. Continue warfarin with heparin bridge 11/17- hgb stable at 8.6, INR 1.1 but noted PT of 12.3. Given hematoma and severe bleed hx will defer on additional extra warfarin doses at this time. INR remains subtherapeutic at 1.2 Will continue Warferin at 7.5 mg daily and monitor INR INR is 1.5 today and will continue Coumadin at 7.5 mg daily Heart rate is elevated at 114- continue beta-jose and will observe Heart rate remains elevated at around 108 She will be getting intravenous digoxin to control the heart rate (4) Severe pulmonary hypertension: (5) Severe mitral valve stenosis: (6) Moderate mitral regurgitation: Plan Leukocytosis Has been elevated Likely in setting of steroid use No current signs of infection Continue to monitor Diet: HH DVT prophylaxis: warfarin with heparin bridge Will continue with IV heparin and oral Coumadin for now INR is 1.8 today Likely to be therapeutic tomorrow and possible discharge tomorrow if remains stable INR is 2.2 point today and heparin will be stopped it has been on hold since last night Dispo: per PT/OT recs- recommending acute rehab Discussed with the [id number] Admission and Anticipated Discharge Date Admission Date: November 06, 2024 Subjective 11/07/2024 The patient was seen and examined in the telemetry unit She was admitted with a mechanical fall and fracture of the left hip Noted to have atrial fibrillation on admission Denies any chest pain and/or palpitation Complains pain in the left hip with any movement of the left lower extremity 11/08/2024 The patient was seen and examined in ICU She remains extremely weak and lethargic She has been on 2 pressor support now and has been started on intravenous amiodarone to control the heart rate Denies any chest pain and/or palpitation and does not have any shortness of breath at rest No abdominal pain nausea and/or vomiting 11/09/2024 The patient was seen and examined in ICU She has been feeling a little better following blood transfusion Feels tired otherwise denies any significant pain or other symptoms 11/10/2024 The patient was seen and examined in ICU She has been feeling much better and denies any significant symptoms No shortness of breath and no pain at rest 11/18/2024 The patient was seen and examined in telemetry unit She has been feeling much better but remains weak and lethargic Her blood pressure was noted to be low this morning with lower 80s without any symptoms at rest Complains of occasional dizziness with ambulation which has not been new symptoms for her 11/19/2024 The patient was seen and examined in the telemetry unit She has been better but feels very depressed Denies any other significant symptoms 11/20/2024 The patient was seen and examined in telemetry unit She has been feeling better but remains weak Has had some shortness of breath following changing of bed position and she is trying to come out of bed Heart rate is noted to be high at 114 11/21/2024 The patient was seen and examined in telemetry unit She remains weak and lethargic but denies any other significant symptoms Noted to have bleeding from the drain this from the wound VAC and the wound VAC was changed at around 2 AM without evidence of bleeding Awaiting further evaluation by the Ortho 11/22/2024 The patient was seen and examined in telemetry unit She has been stable but remains generally weak and lethargic Her wound VAC is draining bloody liquid and she remains tachycardic Denies any chest pain, palpitation or increasing shortness of breath Review of Systems Review of Systems: All systems reviewed and are unremarkable except as noted below Physical Exam Physical Exam: Lying in bed with minimal shortness of breath at rest and distress generally Constitutional: well developed, well nourished, + ill appearing and + obese Eyes: PERRL, conjunctivae normal, anicteric sclerae ENMT: external ear and nose normal, oropharynx normal Neck: trachea midline, no thyromegaly Respiratory: no respiratory distress Auscultation: lungs clear to auscultation bilaterally and + diminished lung sounds ( minimal crackles at the bases) Cardiovascular: Rate/Rhythm: + irregularly irregular; not tachycardic Heart Sounds: normal S1, normal S2 and + murmur Extremities: + edema (Trace edema bilaterally) Gastrointestinal (Abdomen): Inspection/Auscultation: normal bowel sounds; abdomen not distended Percussion/Palpation: abdomen soft; abdomen nontender Neurologic: normal touch/pain/proprioception and moves all extremities (Less movement with the left lower extremity due to fracture) Psychiatric: A+Ox3, euthymic affect Lymphatic: no cervical or axillary lymphadenopathy Results & Data Results & Data Vital Signs (Past 12 Hours) Vital Signs Temp Pulse Pulse Resp BP Pulse Ox O2 Del Method 11/22/24 11:08 36.7 C 102 H 16 94/64 L 91 Room Air 11/22/24 07:03 36.6 C 86 16 93/66 L 92 Room Air 11/22/24 05:48 79 Laboratory Results Short CBC 11/22/24 Range/Units 06:56 WBC 7.43 (4.8-10.8) K/ul Hgb 10.0 L (12.0-16.0) g/dl Hct 31.3 L (37.0-47.0) % Plt Count 133 (130-400) K/uL [facility] 11/22/24 06:56 Sodium 135 L Potassium 3.5 Chloride 100 Carbon Dioxide 26 BUN 28 H Creatinine 0.90 Glucose 101 H Calcium 8.1 L Medications Administered Current Inpatient Medications Calcium Carbonate (Calcium Carbonate 1,250 Mg/5 Ml Udc) 1,250 mg PO BID [facility] Stop: 12/12/24 08:59 Last Admin: 11/22/24 08:03 Dose: 1,250 mg Furosemide (Furosemide Inj 20 Mg/2 Ml Vial) 20 mg IV ONE ONE Stop: 11/22/24 15:01 Digoxin 125 mcg/ Syringe 10 mls @ 2 mls/min IV ONE ONE Stop: 11/22/24 12:34 Cefazolin Sodium (Ancef 2000mg) 2,000 mg in 15 mls @ 3.75 mls/min IV PREOP ONE; Protocol Stop: 11/23/24 07:03 Tranexamic Acid (Tranexamic Acid / 0.7% Nacl) 1,000 mg in 100 mls @ 600 mls/hr IV PREOP ONE Stop: 11/23/24 07:09 Metoprolol Succinate (Metoprolol Succ 50mg Ext Rel Tab) 50 mg PO QAM [facility] Stop: 12/20/24 08:59 Last Admin: 11/22/24 08:06 Dose: 50 mg Metoprolol Succinate (Metoprolol Succ 25mg Ext Rel Tab) 25 mg PO HS [facility] Stop: 12/19/24 20:59 Last Admin: 11/21/24 21:32 Dose: Not Given Midodrine (Midodrine Hcl 2.5 Mg Tab) 2.5 mg PO TID@0800,1200,1700 [facility] Stop: 12/19/24 16:59 Last Admin: 11/22/24 08:03 Dose: 2.5 mg Nitroglycerin (Nitroglycerin Sl 0.4 Mg/Tab Tab) 0.4 mg SL Q5M PRN PRN Reason: Chest Pain Stop: 12/06/24 23:15 Ondansetron HCl (Ondansetron Inj 2 Mg/Ml 2 Ml Vial) 4 mg IV Q6H PRN PRN Reason: Nausea And Vomiting Stop: 12/06/24 23:20 Last Admin: 11/14/24 00:06 Dose: 4 mg Oxycodone/Acetaminophen (Oxycodone/Acetaminophen 5mg/325mg Tab) 1 tab PO Q4H PRN PRN Reason: Pain Stop: 11/25/24 09:35 Last Admin: 11/22/24 08:02 Dose: 1 tab Pantoprazole Sodium (Pantoprazole 40 Mg Tab) 40 mg PO [facility] Stop: 12/13/24 08:59 Last Admin: 11/22/24 08:03 Dose: 40 mg Polyethylene Glycol (Polyethylene (Miralax) 17 Gm Pack) 17 gm PO DAILY PRN PRN Reason: Constipation Stop: 12/06/24 23:15 Last Admin: 11/18/24 10:34 Dose: 17 gm Potassium Chloride (Potassium Chloride Crtab 20 Meq Tabcr) 20 meq PO [facility] Stop: 12/20/24 08:59 Last Admin: 11/22/24 08:02 Dose: 20 meq Torsemide (Torsemide 20 Mg Tab) 20 mg PO [facility] Stop: 12/19/24 08:59 Last Admin: 11/22/24 08:03 Dose: 20 mg Vitamin D (Cholecalciferol 125 Mcg (5,000 Units) Tab) 125 mcg PO [facility] Stop: 12/17/24 10:14 Last Admin: 11/22/24 08:03 Dose: 125 mcg Warfarin Sodium (Warfarin Sod 7.5 Mg Tab) 7.5 mg PO DAILY@1600 [facility] Stop: 12/17/24 17:14 Last Admin: 11/21/24 15:31 Dose: Not Given
[2024-11-22] MEDS: DIGOXIN 125 MCG in SYRINGE 9.5 ML IV ONE (13:02)
[2024-11-22] MEDS: POTASSIUM CHLORIDE CRTAB 20 MEQ TABCR PO ONE (13:02)
[2024-11-22] MEDS: FUROSEMIDE INJ 20 MG/2 ML VIAL IV ONE (15:35)
[2024-11-23 07:10] LABS: Basophils # (auto) 0.03 K/uL (0.00-0.20); Basophils % (auto) 0.4 %; Eosinophils # (auto) 0.02 K/uL (0.00-0.50); Eosinophils % (auto) 0.3 %; Hematocrit (blood only) 33.3 % (37.0-47.0); Hemoglobin 10.3 g/dl (12.0-16.0); Immature Granulocytes # (auto) 0.08 K/uL (0.01-0.20); Lymphocytes # (auto) 0.71 K/uL (1.20-3.40); Lymphocytes % (auto) 9.1 %; Mean Corpuscular Hemoglobin 32.9 pg (25.0-34.0); Mean Corpuscular Hgb Conc 30.9 g/dL (32.0-36.0); Mean Corpuscular Volume 106.4 fL (80.0-100.0); Mean Platelet Volume 11.1 fL (9.4-12.4); Monocytes # (auto) 0.64 K/uL (0.11-0.59); Monocytes % (auto) 8.2 %; Neutrophils # (auto) 6.33 K/uL (1.40-6.50); Nucleated RBC # (auto) 0.04 K/uL (0.00-0.12); Nucleated RBC % (auto) 0.5 %; Platelet Count 130 K/uL (130-400); RDW Coefficient of Variation 28.4 % (11.5-14.5); RDW Standard Deviation 102.8 fL (36.4-46.3); Red Blood Count 3.13 M/uL (4.20-5.40); White Blood Count 7.81 K/ul (4.8-10.8)
--- NOTE | 2024-11-23 07:13 | Orthopedic Progress Note ---
Date of Service November 23, 2024 Assessment & Plan (1) Closed left hip fracture: Plan: IMPRESSION: 2 weeks s/p ORIF L hip fracture, draining wound, concern for developing Crow Maria Luisa lesion PLAN: Hgb stable 10 yesterday. Spoke with IR, currently no ability to coil any vessels at [facility]. INR is 1.9 yesterday, still pending today CTA Left hip,no active bleeding will continue to monitor INR and wound with possible I&D today, may need to give Vit K if INR remains above 1.5 Consent signed and LLE initially Continue care per primary service Admission and Anticipated Discharge Date Admission Date: November 06, 2024 Subjective Doing ok. Had a sip of water. Physical Exam Physical Exam: LLE: NV intact. Dressing changed to Optifoam. Significant bruising buttock. calf soft and non-tender. Negative Celi. Results & Data Vital Signs (Past 12 Hours) Vital Signs Temp Pulse Pulse Resp BP Pulse Ox O2 Del Method 11/22/24 22:28 36.5 C 85 16 100/67 91 Room Air 11/22/24 22:01 90 11/22/24 19:30 36.6 C 87 18 105/71 94 Room Air Laboratory Results Laboratory Results WBC 7.43 K/ul (4.8-10.8) 11/22/24 06:56 RBC 3.02 M/uL (4.20-5.40) L 11/22/24 06:56 Hgb 10.0 g/dl (12.0-16.0) L 11/22/24 06:56 POC Hgb 7.1 g/dl (12.0-16.0) L 11/08/24 04:19 Hct 31.3 % (37.0-47.0) L 11/22/24 06:56 POC Hct 21 % (37-47) L 11/08/24 04:19 MCV 103.6 fL (80.0-100.0) H 11/22/24 06:56 MCH 33.1 pg (25.0-34.0) 11/22/24 06:56 MCHC 31.9 g/dL (32.0-36.0) L 11/22/24 06:56 RDW Std Deviation 99.9 fL (36.4-46.3) H 11/22/24 06:56 RDW Coeff of Gifty 28.9 % (11.5-14.5) H 11/22/24 06:56 Plt Count 133 K/uL (130-400) 11/22/24 06:56 MPV 10.9 fL (9.4-12.4) 11/22/24 06:56 Immature Gran % (Auto) 1.3 % 11/22/24 06:56 Neut % (Auto) 81.3 % 11/22/24 06:56 Lymph % (Auto) 9.4 % 11/22/24 06:56 [place] % (Auto) 7.4 % 11/22/24 06:56 Eos % (Auto) 0.3 % 11/22/24 06:56 Baso % (Auto) 0.3 % 11/22/24 06:56 Neut # (Auto) 6.04 K/uL (1.40-6.50) 11/22/24 06:56 Lymph # (Auto) 0.70 K/uL (1.20-3.40) L 11/22/24 06:56 [place] # (Auto) 0.55 K/uL (0.11-0.59) 11/22/24 06:56 Eos # (Auto) 0.02 K/uL (0.00-0.50) 11/22/24 06:56 Baso # (Auto) 0.02 K/uL (0.00-0.20) 11/22/24 06:56 Immature Gran # (Auto) 0.10 K/uL (0.01-0.20) 11/22/24 06:56 Absolute Nucleated RBC 0.06 K/uL (0.00-0.12) 11/22/24 06:56 Nucleated RBC % (auto) 0.8 % 11/22/24 06:56 Neutrophils % (Manual) 73 % 11/17/24 06:24 Lymphocytes % (Manual) 15 % 11/17/24 06:24 Monocytes % (Manual) 3 % 11/17/24 06:24 Eosinophils % (Manual) 1 % 11/17/24 06:24 Basophils % (Manual) 1 % 11/14/24 04:38 Metamyelocytes % (Man) 5 % 11/17/24 06:24 Myelocytes % (Man) 3 % 11/17/24 06:24 Promyelocytes % (Man) 1 % 11/14/24 04:38 Blast Cells % (Manual) 1 % 11/16/24 05:52 Neutrophils # (Manual) 10.71 K/uL (1.40-6.50) H 11/17/24 06:24 Total Absolute Neuts 10.71 K/uL (1.4-6.5) H 11/17/24 06:24 Lymphocytes # (Manual) 2.20 K/uL (1.2-3.4) 11/17/24 06:24 Total Abs Lymphocytes 2.20 K/uL (1.2-3.4) 11/17/24 06:24 Monocytes # (Manual) 0.44 K/uL (0.11-0.59) 11/17/24 06:24 Eosinophils # (Manual) 0.15 K/uL (0-0.50) 11/17/24 06:24 Basophils # (Manual) 0.15 K/uL (0-0.2) 11/14/24 04:38 Metamyelocytes # (Man) 0.73 K/uL (0-0) H 11/17/24 06:24 Myelocytes # (Manual) 0.44 K/uL (0-0) H 11/17/24 06:24 Promyelocytes # (Man) 0.15 K/uL (0-0) H 11/14/24 04:38 Blast Cells # (Man) 0.18 K/uL (0-0) H 11/16/24 05:52 Platelet Estimate Decreased (Normal) L 11/09/24 04:09 RBC Morphology Unremarkable 11/08/24 04:27 Polychromasia 2+ 11/22/24 06:56 Basophilic Stippling 1+ 11/13/24 04:46 Anisocytosis Present 11/22/24 06:56 Tear Drop Cells 1+ 11/22/24 06:56 PT 19.1 Seconds (9.0-12.0) H 11/22/24 06:56 INR 1.9 (0.9-1.1) H 11/22/24 06:56 APTT 28 Seconds (21-31) 11/07/24 18:42 PTT Ratio 1.0 11/07/24 18:42 Heparin Anti-Xa, Unfract < 0.10 IU/ml (0.3-0.7) L 11/21/24 05:27 Specimen Type Arterial 11/08/24 04:19 Sample Site Art Line 11/08/24 04:19 POC pH 7.36 (7.35-7.45) 11/08/24 04:19 POC pCO2 38 mmHg (35-46) 11/08/24 04:19 POC pO2 21 mmHg (80-95) L 11/08/24 04:19 POC HCO3 22 john/L (19-24) 11/08/24 04:19 POC Total CO2 23 mmol/L (24-31) L 11/08/24 04:19 POC Base Excess -4.0 john/L (-9-1.8) 11/08/24 04:19 O2 Sat Pulse Oximetry 100 11/08/24 04:19 ABG pH (Temp Correct) 7.364 (7.35-7.45) 11/08/24 04:19 ABG pCO2 (Temp Corrct 38 mmHg (35-46) 11/08/24 04:19 POC ABG pO2 at Pt Temp 20 11/08/24 04:19 POC ABG O2 Sat 33.0 % (90-95) L 11/08/24 04:19 Moe Test NA 11/08/24 04:19 O2 Delivery Device Cannula 11/08/24 04:19 POC Sodium 138 mmol/L (135-144) 11/08/24 04:19 Sodium 135 mmol/L (136-145) L 11/22/24 06:56 POC Potassium 3.7 mmol/L (3.3-5.0) 11/08/24 04:19 Potassium 3.5 mmol/L (3.5-5.1) 11/22/24 06:56 Chloride 100 mmol/L (98-107) 11/22/24 06:56 Carbon Dioxide 26 mmol/L (21-32) 11/22/24 06:56 Anion Gap 9 (3-11) 11/22/24 06:56 BUN 28 mg/dl (6-23) H 11/22/24 06:56 Creatinine 0.90 mg/dl (0.6-1.2) 11/22/24 06:56 Est Cr Clr Drug Dosing 69.3 ml/min 11/22/24 06:56 eGFR 67.08 11/22/24 06:56 BUN/Creatinine Ratio 31.1 (10-20) H 11/22/24 06:56 Glucose 101 mg/dl (70-99(Fasting)) H 11/22/24 06:56 Estimat Average Glucose 100 mg/dl 11/07/24 05:44 Hemoglobin A1c 5.1 % (4.5-5.6) 11/07/24 05:44 Lactate 1.4 mmol/L (0.4-2.0) 11/08/24 04:27 Calcium 8.1 mg/dl (8.6-10.3) L 11/22/24 06:56 Ionized Calcium 1.14 mmol/L (1.12-1.32) 11/11/24 03:59 Phosphorus 3.3 mg/dl (2.5-4.9) 11/19/24 05:24 Magnesium 1.7 mg/dl (1.7-2.4) 11/22/24 06:56 Total Bilirubin 2.5 mg/dl (0.2-1.0) H 11/19/24 05:24 AST 39 U/L (13-39) 11/19/24 05:24 ALT 35 U/L (7-52) 11/19/24 05:24 Alkaline Phosphatase 56 U/L (34-104) 11/19/24 05:24 Total Creatine Kinase 27 U/L (26-192) 11/07/24 05:44 Troponin I High Sens 7.8 pg/ml (0-14) 11/07/24 05:44 B-Natriuretic Peptide 471 pg/ml (0-100) H 11/08/24 08:37 Total Protein 5.9 gm/dl (6.0-8.3) L 11/19/24 05:24 Albumin 3.2 gm/dl (3.4-5.0) L 11/19/24 05:24 Globulin 2.7 gm/dl (2.5-4.0) 11/19/24 05:24 Albumin/Globulin Ratio 1.2 (0.9-2) 11/19/24 05:24 25-OH Vitamin D Total 38.2 ng/ml (30-100) 11/18/24 06:33 Random Cortisol 23.54 mcg/dl 11/07/24 17:02 Nasal Screen MRSA (PCR) Negative (Negative) 11/07/24 Unknown Hepatitis C Ab Screen Negative (Negative) 11/06/24 19:57 Blood Type A Positive 11/08/24 11:33 Blood Type Recheck A Positive 11/08/24 10:59 Antibody Screen NEGATIVE 11/08/24 11:33 Crossmatch See Detail 11/08/24 11:33 Impressions Hip/Pelvis X-Ray 11/06/24 20:00 Exam(s): XR HIP + PELVIS, 1 view EXAM: XR Left Hip With Pelvis When Performed, 2 or 3 Views CLINICAL HISTORY: Reason for exam: Hip fracture. TECHNIQUE: Two or three views of the left hip with pelvis when performed. COMPARISON: No relevant prior studies available. IMPRESSION: Limited views. There is an acute intertrochanteric fracture of the proximal left femur with mild displacement. Advanced degenerative arthropathy is noted at the left hip joint. 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 Fluoroscopy time: 4 minutes and 41 seconds. Number of fluoroscopic images: 6. Ka,r: 87.18 mGy. FINDINGS: Fluoroscopy was provided during open reduction and internal fixation of the intertrochanteric fracture of the left femur with trochanteric nail. Fracture alignment has improved. Distal screws are present. Linear radiodensities project over the operative bed are likely on the patient. Severe left hip osteoarthritis incidentally noted. IMPRESSION: Fluoroscopy provided during open reduction and internal fixation of the intertrochanteric fracture of the left femur. ACT 112: Negative or not required by law. Electronically signed by: Wilfredo Corbett M.D. 11/08/2024 12:[address] 11/08/24 11:21 EXAM: CT Pelvis With Intravenous Contrast INDICATION: Rule out bleed TECHNIQUE: Axial computed tomography images of the pelvis with intravenous contrast. Sagittal and coronal reformatted images were created and reviewed. This CT exam was performed using one or more of the following dose reduction techniques: automated exposure control, adjustment of the mA and/or kV according to patient size, and/or use of iterative reconstruction technique. CONTRAST: 94ml of Optiray 320 was administered intravenously. COMPARISON: No relevant prior studies available. FINDINGS: Bowel: No abnormality noted. No obstruction. No mucosal thickening. Appendix: No findings to suggest acute appendicitis. Intraperitoneal space: No free air. No significant fluid collection. Bladder: No filling defects to suggest mass or large stone. No inflammation. Reproductive: No significant abnormality noted. Bones/joints: There is an acute intertrochanteric fracture of the left femur with slight displacement. Long femoral nail with proximal and distal locking hardware well-seated and intact. Severe degenerative change of the left hip noted. Soft tissues: Large irregular subcutaneous hematoma extends from the level of the upper aspect of the left gluteal musculature to the lateral skin surface inferiorly tracking within and along the gluteal musculature predominantly in the subcutaneous fat terminating posterior level of the proximal femoral shaft. Moderate amounts of associated gas present. The skin surface is not completely included. There are areas of acute hemorrhage in the lateral aspect of the hematoma (see images series 6 [id number]. Most confluent area of hematoma measures maximal transverse diameter of 10 cm, AP diameter of 8.1 cm. Maximum length is roughly 17.4 cm. There is generalized subcutaneous contusion and gas. There is gas along the gluteal musculature. There is subcutaneous edema and scattered gas along the lateral aspect of the femur. Vasculature: No abnormality noted. No lower abdominal aortic aneurysm. Lymph nodes: No abnormality noted. No enlarged lymph nodes. IMPRESSION: 1. Large predominantly subcutaneous but partially gluteal hematoma with areas of active bleeding as above. There is generalized edema of the left lower extremity. 2. Internally fixed acute fracture of the intertrochanteric left femur. ACT 112: N/A Electronically signed by Ana Paula Stock 11-08-2024 13:[address] 11/08/24 11:21 EXAM: CT Pelvis With Intravenous Contrast INDICATION: Evaluate for bleeding TECHNIQUE: Axial computed tomography images of the pelvis with intravenous contrast. Sagittal and coronal reformatted images were created and reviewed. This CT exam was performed using one or more of the following dose reduction techniques: automated exposure control, adjustment of the mA and/or kV according to patient size, and/or use of iterative reconstruction technique. CONTRAST: 94ml of Optiray 320 was administered intravenously. COMPARISON: No relevant prior studies available. FINDINGS: Bones/joints: There is an acute nondisplaced fracture of the posterior aspect of the left inferior pubic ramus. There is an acute intertrochanteric fracture of the left femur with lateral displacement. Long femoral nail with proximal locking bolt well-seated and intact. Severe primary osteoarthritic change of the left hip noted. Soft tissues: There is diffuse subcutaneous contusion and hematoma beginning at the level of the upper gluteal musculature and partially involving the anterior gluteal muscular mass. Extensive subcutaneous gas noted. Areas of acute hemorrhage noted in the lateral aspect of the hematoma (series 4 images [id number] 20). Bladder: No filling defects to suggest mass or large stone. No inflammation. IMPRESSION: 1. Acute intertrochanteric fracture of the left femur with the visualized portion of the internal fixation hardware intact and well-seated. 2. Large predominantly subcutaneous hematoma from the upper left gluteal region to the proximal posterior left femur with areas of active bleeding as above. 3. There is an acute nondisplaced fracture of the posterior aspect of the left inferior pubic ramus. ACT 112: N/A Electronically signed by Ana Paula Stock 11-08-2024 2:02 PM Abdomen/Pelvis CT 11/08/24 11:26 EXAM: CT Abdomen and Pelvis With Intravenous Contrast INDICATION: Evaluate for bleeding TECHNIQUE: Axial computed tomography images of the abdomen and pelvis with intravenous contrast. Sagittal and coronal reformatted images were created and reviewed. This CT exam was performed using one or more of the following dose reduction techniques: automated exposure control, adjustment of the mA and/or kV according to patient size, and/or use of iterative reconstruction technique. CONTRAST: 93 ml of Optiray 320 was administered intravenously. COMPARISON: No relevant prior studies available. FINDINGS: Limitations: Portions of the right subcostal chest wall and upper abdominal wall not included. Lung bases and pleural space: Heart: Cardiomegaly. Small pericardial effusion noted. Dense mitral annular calcification is noted. Mediastinum: No abnormality noted. ABDOMEN: Liver: Normal size and contour. Hypodense typical of steatosis. No mass or ductal dilation. Gallbladder and bile ducts: Cholecystectomy. No ductal dilation or stone noted. Pancreas: Homogeneous enhancement. No mass, inflammation or ductal dilation. Spleen: No significant abnormality noted. Adrenals: Mild bilateral thickening. No measurable mass. Kidneys and ureters: There is a ill-defined hypodense area in the left renal midpole measuring approximately 2.7 x 1.4 x 0.9 cm. The right kidney appears normal. Stomach and bowel: No distension or mucosal thickening. No inflammation noted. PELVIS: Appendix: No findings to suggest acute appendicitis. Bladder: Gutierrez balloon inflated in the bladder which is collapsed and cannot be assessed. Reproductive: No abnormalities noted. ABDOMEN and PELVIS: Intraperitoneal space: No free air. No significant fluid collection. Bones/joints: Acute internally fixed left intertrochanteric femoral fracture noted. Degenerative changes present throughout the spine. There is moderate to severe degenerative change of the hips left greater than right. Soft tissues: There is a large hematoma and gas collection extending from the upper aspect of the left gluteal musculature tapering to the level of the proximal femur measuring maximal transverse dimension at the most confluent point of 11.9 cm in AP diameter of 7.3 cm. There is a small focus of acute hemorrhage in the lateral aspect of the hematoma at the level of the supra-acetabular iliac bone series 3 image 257/367. There is generalized surrounding subcutaneous contusion. Vasculature: Atherosclerotic calcification of the aorta and branches. No aneurysm. Lymph nodes: No pathologically enlarged lymph nodes. IMPRESSION: 1. Large subcutaneous hematoma extending from the upper left gluteal region to the proximal posterior left femur as above with small focus of acute hemorrhage in the lateral aspect of the hematoma. 2. Small bilateral pleural effusions and dependent atelectasis. 3. Ill-defined hypodensity left kidney could be a mass or a hyperdense cyst. Sonographic assessment is recommended when able. ACT 112: N/A Electronically signed by Ana Paula Stock 11-08-2024 13:54 PM Renal Ultrasound 11/14/24 08:50 RENAL ULTRASOUND HISTORY: f/u CT, left kidney lesion COMPARISON: CT 11/08/2024 FINDINGS: Limited study secondary to patient body habitus. Right kidney: 10.2 cm. No hydronephrosis. Normal corticomedullary differentiation and cortical thickness. Left kidney: 10.8 cm. Ill-defined hypoechoic lesion within the midpole left kidney demonstrates no definite color flow measuring 1.4 x 1.4 x 0.9 cm and appears to represent a complex septated cyst. No hydronephrosis. Normal corticomedullary differentiation and cortical thickness. Bladder: No bladder wall thickening. The bilateral ureteral jets are not identified. 1.3 cm splenule again noted. IMPRESSION: 1. Limited exam secondary to patient body habitus. 2. 1.4 cm lesion within the midpole left kidney favors a complex cyst, however is suboptimally evaluated. A precautionary MRI of the abdomen with and without IV contrast utilizing renal protocol recommended to further evaluate. 3. No hydronephrosis. ACT 112: Negative or not required by law. Electronically signed by: Vimal Altamirano M.D. 11/14/2024 11:05 AM Chest X-Ray 11/16/24 09:40 Chest radiograph, one view History: Dyspnea. Comparison: November 15, 2024. Findings: Patient rotated to the right. Cardiac silhouette is prominent. This is unchanged. Central pulmonary vasculature is prominent. Mild diffuse increased reticular markings bilaterally with obscuration portions of the heart borders and hemidiaphragms. Poorly defined bilateral costophrenic angles. Pulmonary vascular clarity appears to be improved. Impression: Improving pulmonary vascular clarity with nonspecific mild diffuse increased reticular markings and likely bibasilar subsegmental atelectasis and small effusions. Suspect low-grade congestive heart failure. Pneumonia not excluded. Electronically signed by Tyler Cummings 11-16-2024 10:26 AM Pelvis CTA 11/22/24 08:32 EXAM: CT Angiography Abdomen and Pelvis Without and With Intravenous Contrast INDICATION: Assess for active bleeding. TECHNIQUE: Axial computed tomographic angiography images of the abdomen and pelvis without and with intravenous contrast. Sagittal and coronal reformatted images were created and reviewed. This CT exam was performed using one or more of the following dose reduction techniques: automated exposure control, adjustment of the mA and/or kV according to patient size, and/or use of iterative reconstruction technique. MIP reconstructed images were created and reviewed. CONTRAST: 118ml of Optiray 320 was administered intravenously. COMPARISON: CT abdomen pelvis 11/08/2024 FINDINGS: VASCULATURE: Aorta: Atherosclerotic calcification of the aorta and branches. No aneurysm. Celiac trunk and mesenteric arteries: No acute change noted. No occlusion or significant stenosis. Renal arteries: No acute change noted. No occlusion or significant stenosis. Iliac arteries: No acute change noted. No occlusion or significant stenosis. Lung bases: See below. Pleural space: Increased small bilateral layering pleural effusions and bilateral lower lobe dependent atelectasis. Heart: Stable cardiomegaly. Dense mitral annular calcification. No pericardial effusion. ABDOMEN: Liver: No abnormality noted. No mass. Gallbladder and bile ducts: Cholecystectomy. No ductal dilation or stone noted. Pancreas: No abnormality noted. No ductal dilation. No mass. Spleen: No abnormality noted. No splenomegaly. Adrenals: No abnormality noted. No mass. Kidneys and ureters: Stable 2 mm nonobstructing left kidney stone. Right kidney appears normal. Stomach and bowel: No abnormality noted. No obstruction. No mucosal thickening. PELVIS: Appendix: No findings to suggest acute appendicitis. Bladder: There is a small amount of air in the urinary bladder. Previously seen Gutierrez catheter no longer present. No stones. Reproductive: No significant abnormality noted. ABDOMEN and PELVIS: Intraperitoneal space: There is a small amount of layering fluid in the presacral space. No abscess or free air. Bones/joints: Internally fixed intertrochanteric fracture of the left femur noted. Visualized portion of the hardware well-seated. There is severe arthritic change of the left hip. Mild degenerative changes right hip. There is accentuated lumbar lordosis and diffuse facet arthrosis and mild spondylosis. Soft tissues: There is irregular gas, subcutaneous hematoma and generalized contusional changes in the subcutaneous fat lateral to the left hip. No acute extravasation identified. The area in total a measures greatest transverse diameter of approximately 1 and 11 cm transverse by 16 cm long. 5 9 cm AP. There is increased conspicuity of subcutaneous contusion in the right lateral pannus. Lymph nodes: No abnormality noted. No enlarged lymph nodes. IMPRESSION: 1. Hematoma and generalized subcutaneous contusion lateral to the left hip as above. No active extravasation noted. 2. Increased small layering pleural effusions and bilateral lower lobe compressive atelectasis. ACT 112: N/A Electronically signed by Ana Paula Stock 11-22-2024 09:49 AM
[2024-11-23 07:28] LABS: Magnesium 1.7 mg/dl (1.7-2.4); Potassium 3.4 mmol/L (3.5-5.1)
[2024-11-23 07:34] LABS: BUN Creatinine Ratio 29.3 (10-20); Creatinine Clr Calc Pharmacy 63.9 ml/min; INR 1.5 (0.9-1.1); Prothrombin Time 15.8 Seconds (9.0-12.0)
--- NOTE | 2024-11-23 07:36 | Anesthesiology Consultation ---
Date of Service November 23, 2024 Assessment & Plan Chart Review Chart Review: Acceptable Risk for Surgery and Patient NOT seen in Pre Admission Testing Consults Requested none ASA ASA4 Proposed Anesthesia Anesthesia Type: General History Surgery Operation Date: 11/07/24 07:00 Proposed Procedures p Left Troch Nail - Silver Mariam Fitch MD Operation Date: 11/23/24 07:30 Proposed Procedures p Incision and Drainage Left Hip - Silver Mariam Fitch MD Height/Weight Height: 5 ft 6 in Weight: 114 kg Allergies Allergy/AdvReac Type Severity Reaction Status Date / Time Penicillins Allergy Itching Verified 11/06/24 23:26 Medications Home Medications Medication Instructions Recorded Confirmed Last Taken carvedilol 25 mg tablet 25 mg PO BID 11/06/24 11/06/24 Unknown hydrochlorothiazide 25 mg tablet 25 mg PO DAILY 11/06/24 11/06/24 Unknown lisinopril 20 mg tablet 20 mg PO DAILY 11/06/24 11/06/24 Unknown Active Medications Generic Name Dose Route Start Last Admin Trade Name Freq PRN Reason Stop Dose Admin Calcium Carbonate 1,250 mg 11/12/24 09:00 11/22/24 21:19 Calcium Carbonate 1,250 Mg/5 Ml Udc PO 12/12/24 08:59 1,250 mg BID AFSHAN Administration Metoprolol Succinate 50 mg 11/20/24 09:00 11/22/24 08:06 Metoprolol Succ 50mg Ext Rel Tab PO 12/20/24 08:59 50 mg QAM AFSHAN Administration Metoprolol Succinate 25 mg 11/19/24 21:00 11/22/24 21:18 Metoprolol Succ 25mg Ext Rel Tab PO 12/19/24 20:59 25 mg HS AFSHAN Administration Midodrine 2.5 mg 11/19/24 17:00 11/22/24 17:56 Midodrine Hcl 2.5 Mg Tab PO 12/19/24 16:59 2.5 mg TID@0800,1200,1700 AFSHAN Administration Ondansetron HCl 4 mg 11/06/24 23:21 11/14/24 00:06 Ondansetron Inj 2 Mg/Ml 2 Ml Vial IV 12/06/24 23:20 4 mg Q6H PRN Administration Nausea And Vomiting Oxycodone/Acetaminophen 1 tab 11/11/24 09:36 11/22/24 21:18 Oxycodone/Acetaminophen 5mg/325mg Tab PO 11/25/24 09:35 1 tab Q4H PRN Administration Pain Pantoprazole Sodium 40 mg 11/13/24 09:00 11/22/24 08:03 Pantoprazole 40 Mg Tab PO 12/13/24 08:59 40 mg QAM AFSHAN Administration Polyethylene Glycol 17 gm 11/06/24 23:16 11/18/24 10:34 Polyethylene (Miralax) 17 Gm Pack PO 12/06/24 23:15 17 gm DAILY PRN Administration Constipation Potassium Chloride 20 meq 11/20/24 09:00 11/22/24 08:02 Potassium Chloride Crtab 20 Meq Tabcr PO 12/20/24 08:59 20 meq QAM AFSHAN Administration Torsemide 20 mg 11/19/24 09:00 11/22/24 08:03 Torsemide 20 Mg Tab PO 12/19/24 08:59 20 mg QAM AFSHAN Administration Vitamin D 125 mcg 11/17/24 10:15 11/22/24 08:03 Cholecalciferol 125 Mcg (5,000 Units) Tab PO 12/17/24 10:14 125 mcg QAM AFSHAN Administration Warfarin Sodium 7.5 mg 11/17/24 17:15 11/21/24 15:31 Warfarin Sod 7.5 Mg Tab PO 12/17/24 17:14 Not Given DAILY@1600 AFSHAN Past Medical History 3 MR-severe MS-mild Hx/o CHF - mod. A Fib severe Pulm.Htn Anemia HTN ASCVD Ao Exercise / Class Metabolic Activity III < 4 Walking/Shop/Light housework Past Anesthesia History No Hx of Anesthesia Complications and No Family Hx of Anesthesia Complications History of PONV No Hx of PONV and No Hx of Motion Sickness Social History Smoking Status: Former smoker Smoking End Date: 5 years ago Hx Alcohol Use: Yes Alcohol type: wine alcohol intake frequency: holidays/special occasions only Hx Substance Use: No Physical Exam Vital Signs Last Vital Signs Temp 36.6 C 11/23/24 07:08 Pulse 85 11/23/24 07:08 Resp 18 11/23/24 07:08 BP 103/70 11/23/24 07:08 Pulse Ox 92 11/23/24 07:08 O2 Del Method Room Air 11/23/24 07:08 O2 Flow Rate 1 11/20/24 15:11 Testing Laboratory Results 11/23/24 06:37 11/23/24 06:37 PT 19.1 Seconds (9.0-12.0) H 11/22/24 06:56 INR 1.9 (0.9-1.1) H 11/22/24 06:56 APTT 28 Seconds (21-31) 11/07/24 18:42 Hemoglobin A1c 5.1 % (4.5-5.6) 11/07/24 05:44 Blood Type A Positive 11/08/24 11:33 Antibody Screen NEGATIVE 11/08/24 11:33 Electrocardiogram Date: 11/09/24 Findings: + AFIB @ (@ 89;IRBBB;low voltage) Chest X-Ray Date: 11/16/24 Findings: + pulmonary vascular congestion (suspect low grade chf) Echocardiogram Date: 11/11/24 EF: 65% LV Function: normal RWMA: + none Other Findings: + atrial enlargement (LA severely dilated) Valvular Disease: + (mod.) and + MR (severe) MS-mild AV area- 1.8 cm 2
[2024-11-23] MEDS ORDERED: fentaNYL citrate PF 100 MCG/2 ML VIAL ONE (07:44)
[2024-11-23] MEDS ORDERED: PROPOFOL IV EMULSION 10 MG/ML 20 ML VIAL IV ONE (07:44)
[2024-11-23] MEDS ORDERED: ROCURONIUM BROMIDE 10 MG/ML 5 ML VIAL IV ONE (07:44)
[2024-11-23] MEDS ORDERED: ONDANSETRON INJ 2 MG/ML 2 ML VIAL ONE (07:44)
[2024-11-23] MEDS ORDERED: DEXAMETHASONE SOD INJ 4 MG/ML VIAL ONE (07:44)
[2024-11-23] MEDS ORDERED: SUGAMMADEX SODIUM 200 MG/2 ML VIAL IV ONE (07:44)
[2024-11-23] MEDS ORDERED: ETOMIDATE 2 MG/ML 20 ML VIAL IV ONE (08:01)
[2024-11-23] MEDS: ceFAZolin 2000MG 2,000 MG/15 ML SYR IV ONE (08:15)
[2024-11-23] MEDS ORDERED: ceFAZolin 330 MG/ML 1 GM VIAL ONE (08:16)
[2024-11-23 08:17] LABS: Anisocytosis Present; Polychromasia 2+; Tear Drop Cells 1+
[2024-11-23] MEDS: TRANEXAMIC ACID / 0.7% NACL 1,000 MG/100 ML BAG IV ONE (08:17)
[2024-11-23] MEDS ORDERED: PHENYLEPHRINE 100MCG/ML 5ML SYR ONE (08:19)
[2024-11-23] MEDS ORDERED: TRANEXAMIC ACID / 0.7% NACL 1000MG/100ML BAG IV ONE (08:21)
[2024-11-23] MEDS ORDERED: PHENYLEPHRINE HCL 10 MG/ML VIAL ONE (08:34)
[2024-11-23] MEDS: BUPIVACAINE/EPINEPHRINE 0.5% MPF 1:200,000 30 ML VIAL ONE (09:17)
[2024-11-23] MEDS: LIDOCAINE 1% LOCAL 20 ML VIAL ONE (09:17)
--- NOTE | 2024-11-23 09:47 | Post Operative Brief Note ---
Immediate Post Op Note Date of Surgery November 23, 2024 Pre & Post Diagnosis Operation Date: 11/23/24 07:30 Pre-Op Diagnosis: Hematoma Left Hip, Status Post Open Reduction Internal Fixation Left Hip Post-Op Diagnosis: Hematoma Left Hip, Status Post Open Reduction Internal Fixation Left Hip I identified the patient and participated in the time-out.: Yes Procedure Operation Date: 11/23/24 07:30 Actual Procedures p Incision and Drainage Left Hip(Left) - Silver Fitch MD Surgeon Silver Fitch MD Flute Grinder n/a Estimated Blood Loss 100 Findings Consistent with Post-Op Diagnosis Fluids 300 cc Specimens Left hip Cx & S L hip hematoma Drains Hemovac Drain Anesthesia Type General Complications none
--- NOTE | 2024-11-23 09:48 | Operative Report ---
Post Operative Report Pre & Post Diagnosis Operation Date: 11/23/24 07:30 Pre-Op Diagnosis: Hematoma Left Hip, Status Post Open Reduction Internal Fixation Left Hip, non- healing wound Post-Op Diagnosis: Hematoma Left Hip, Status Post Open Reduction Internal Fixation Left Hip, non- healing wound I identified the patient and participated in the time-out.: Yes Procedure Operation Date: 11/23/24 07:30 Actual Procedures p Incision and Drainage Left Hip(Left) - Silver Fitch MD Surgeon Silver Fitch MD Financial Solutions Advisor n/a Estimated Blood Loss 100 Findings See Below Fluids 300 cc Specimens Left hip Cx & S L hip hematoma Drains HVAC x 2 Anesthesia Type General Complications none Indications The patient had draining wound from their left hip that appears to have a large hematoma The patient understands the risks of surgery, which include but are not limited to: bleeding, infection, re-operation, damage to nerves and arteries, continued pain and DVT. The patient understands all of these instructions and explanations, all of their questions have been satisfactorily addressed. The patient has elected to proceed with surgery and the informed consent was signed. Description of Procedure The patient was taken to the Operating Room and placed in the lazy lateral position on the operating table. After general anesthetic was administered a multidisciplinary time-out was performed identifying my initials on the left limb as the correct and operative limb. Antibiotics, 2 gram of intravenous Ancef were given. The remaining staple were removed with a staple remover. There was dark bloody drainage from the open mid-portion of the incision. The left leg was prepped and draped in the usual Orthopaedic sterile fashion. The previous incision was digitally opened and a large amount of hematoma was manually expressed and removed. Deep cultures were obtained. Some of the hematoma was sent for pathology. Retained sutures were removed as they were encountered. The hematoma was further removed with Lowery, irrigation, Versajet, and suction. The edges of the wound were debrided with a Versajet in the standard fashion. Hemostasis was obtained with cautery. The wound was deep to the fascia and was ~ 12 x 15 cm. The skin edges were injected with a 50:50 mixture of 1% lidocaine and 0.5 % Marcaine with epi for a total of 20cc. The sk in edges were freshened with a scalpel, and small non-viable portion was excised with a scalpel.The wound was copiously irrigated with 6+ L normal saline.Following irrigation and debridement there was healthy viable red beefy tissue that was bleeding. A large HVAC drain was placed x 2. The skin were closed with 0 & 2-0 Prolene, in ventricle and horizontal matress respectively. The wound and drains were covered Xeroform, 4 x 4's, ABDs, and Foam tape. Optifoam were placed over fracture blisters. The sponge and needle counts were correct. The HVAC was functioning. I attest to the content of the Intraoperative Record and any orders documented therein. Any exceptions are noted below.
[2024-11-23] MEDS ORDERED: METOPROLOL TARTRATE 1 MG/ML VIAL IV ONE (09:54)
[2024-11-23] MEDS ORDERED: ATROPINE SULFATE 0.1 MG/ML 10ML SYR IV PRN (10:03)
[2024-11-23] MEDS ORDERED: NALOXONE HCL 0.4 MG/1 ML VIAL/CARP IV PRN (10:03)
[2024-11-23] MEDS ORDERED: ONDANSETRON INJ 2 MG/ML 2 ML VIAL IV PRN (10:03)
[2024-11-23] MEDS ORDERED: FLUMAZENIL 0.1 MG/1 ML 10 ML VIAL IV PRN (10:03)
[2024-11-23] MEDS ORDERED: fentaNYL citrate PF 100 MCG/2 ML VIAL IV PRN (10:03)
[2024-11-23] MEDS ORDERED: ePHEDrine sulfate 50 MG/ML AMP IV PRN (10:03)
[2024-11-23] MEDS ORDERED: PROMETHAZINE HCL 6.25 MG in SODIUM CHLORIDE 0.9% 50 ML IV PRN (10:03)
--- NOTE | 2024-11-23 11:09 | Anesthesiology Progress Note ---
Date of Service November 23, 2024 Anesthesia Post Procedure Vital Signs Vital Signs: Temp Pulse Pulse Pulse Resp BP BP 11/23/24 10:30 104 H 24 93/75 L 11/23/24 10:20 37.1 C 112 H 20 97/73 L 11/23/24 10:10 114 H 22 94/77 L 11/23/24 10:00 121 H 16 107/68 11/23/24 09:50 36.2 C L 119 H 14 89/61 L 11/23/24 07:08 36.6 C 85 18 103/70 11/22/24 22:28 36.5 C 85 16 100/67 11/22/24 22:01 90 11/22/24 19:30 36.6 C 87 18 105/71 11/22/24 15:34 36.4 C L 91 H 16 107/68 11/22/24 13:03 105 H Pulse Ox O2 Del Method O2 Flow Rate 11/23/24 10:30 95 Nasal Cannula 2 11/23/24 10:20 96 Nasal Cannula 2 11/23/24 10:10 96 Oxymask 4 11/23/24 10:00 94 Oxymask 6 11/23/24 09:50 93 Oxymask 6 11/23/24 07:08 92 Room Air 11/22/24 22:28 91 Room Air 11/22/24 22:01 11/22/24 19:30 94 Room Air 11/22/24 15:34 92 Room Air 11/22/24 13:03 Pain Intensity Left Hip: Pain Intensity: 4 Medial Back: Pain Intensity: 4 Left Knee: Pain Intensity: 5 Left Hand: Pain Intensity: 5 Transfer of Care Handoff Completed per policy Notes Mental Status: alert / awake / arousable Patient Amnestic to Procedure: Yes Nausea / Vomiting: adequately controlled Pain: adequately controlled Airway Patency, RR, SpO2: stable & adequate BP & HR: see Notes below (Pt in A Fib w/ RVR) Hydration State: stable & adequate Anesthetic Complications: no major complications apparent
[2024-11-23] MEDS: POTASSIUM CHLORIDE / WTR 10 MEQ/100 ML PLCT IV SCH (11:15)
--- NOTE | 2024-11-23 12:00 | Hospitalist Progress Note ---
Date of Service November 23, 2024 Assessment & Plan (1) Closed left hip fracture: Plan: 74-year-old female from [facility] with past medical history significant for hypertension, CHF who is status post fall with left hip fracture, s/p ORIF on 11/07/24 with postop anemia and hypotension requiring transfer to the ICU. Closed left hip fracture Status post mechanical fall Orthopedics consulted, appreciate recs -s/p ORIF on 11/07/24 -concern for infection on 11/15-11/16: Ortho evaluated, not infection, concern for edema, wound vac placed On diuretics started by cardiology on 11/16/24 PT/OT- recommending acute rehab Appreciate reevaluation by the orthopedic surgeon regarding drainage from the surgical site Wound VAC has been placed and draining small amount of serous fluid Doubt any infection Denies any significant pain in the joints and the drainage seems to be decreased Denies any significant pain and swelling involving the surgical site left upper thigh and hip Noted to have bleeding from the wound VAC drain is last night but after about 2 AM no more bleeding following changing of the wound VAC She denies any significant pain and this morning drainage seems to be minimal serosanguineous Bleeding from the wound through the wound VAC CT of the left hip with contrast did not show any acute bleeding Seems to be hematoma with resolving and appreciate Ortho's recommendation to washout likely tomorrow or day after Hemoglobin remains Stable and INR is 1.9 Will keep her n.p.o. after midnight and hold Coumadin Status post incision and drainage of left hip Large hematoma was evacuated In the wound bed was placed at the operation site She remains weak and lethargic does not have any significant pain following the procedure Will restart Coumadin this evening Hypotension Hypotensive Shock Pt with postop hypotensive shock requiring transfer to the ICU Required vasopressor support x2 Was on midodrine 10mg TID, hydrocortisone and florinef for adrenal support- being weaned Home antihypertensives on hold Improving, downgraded from the ICU on 11/13 after off of pressors for some time On Toprol 25mg BID with hold parameters decreased Hydrocortisone being weaned, midodrine down to 5mg TID Pt now on diuretic from 11/16/24 Still has occasional hypotension and she is off any pressor agents Has been on metoprolol succinate 25 mg twice daily and also midodrine for blood pressure support Her blood pressure remains stable at 140/70 and heart rate is controlled at 95 Blood pressure remains stable at systolic 100 Blood pressure remains on the lower side at 106/68 Her hydrocortisone is stopped today Her blood pressure remains on the softer side at 94/64 Blood pressure remains on the lower side at 100/74 and heart rate is 109 Acute Blood Loss Anemia post op, requiring 3U pRBCs thus far CT abd/pelvis noting large hematoma Heparin previously on hold, has since been resumed with start of warfarin for valvular a fib. Hgb stable Continue to monitor Hemoglobin remains stable at 9.3 hemoglobin remains stable at 10.3 as of 11/20/2024 Hemoglobin remains stable at 9.3 Will check CBC and BMP tomorrow Acute depression Feels very depressed and wanted to have some help Appreciate psychiatrist input and recommendation Plan to start duloxetine 20 mg daily after about 4 weeks to decrease the risk of bleeding She is agreeable to start duloxetine 20 mg daily after about 4 weeks (2) Chronic heart failure with preserved ejection fraction: Plan: Acute on Chronic heart failure with preserved EF Hypoxia Now with evidence of acute CHF during this admission Extremities swollen Seeping fluid out of surgical left hip wound Cardiology consulted, appreciate recs -started on IV Lasix 20mg BID on 11/16 Wean oxygen as tolerated No evidence of fluid overload Has not been getting any intravenous fluid to avoid any fluid overload Significant valvular heart disease Has moderate aortic stenosis, severe mitral valve stenosis and moderate mitral regurgitation Severe pulmonary hypertension as well Echo with EF 65-70%, mod LVH, LA severely dilated, mild to mod , mild MS, severe MR will likely need valvular heart surgery will need to have follow-up appointments with Cardiac/Thoracic surgeon as an outpatient (3) Atrial fibrillation with controlled ventricular response: Plan: Atrial Fibrillation with RVR Has significant valvular heart disease with atrial fibrillation and increased ventricular rate Was on IV amiodarone, then transitioned to oral amiodarone before being discontinued. Pt was then started on Toprol Anticoagulation previously on hold in the setting of acute blood loss anemia- heparin resumed. Warfarin restarted with heparin bridge Cardiology consulted and managing, appreciate recs Improving 11/14- INR on 11/07 1.3. started on warfarin today with heparin bridge. Will need close monitoring of H/H 11/15- continuing Toprol XL 25mg BID with warfarin and heparin bridge, hgb stable at 8.3 11/16-hgb stable >8, INR still 1.1. Continue warfarin with heparin bridge 11/17- hgb stable at 8.6, INR 1.1 but noted PT of 12.3. Given hematoma and severe bleed hx will defer on additional extra warfarin doses at this time. INR remains subtherapeutic at 1.2 Will continue Warferin at 7.5 mg daily and monitor INR INR is 1.5 today and will continue Coumadin at 7.5 mg daily Heart rate is elevated at 114- continue beta-jose and will observe Heart rate remains elevated at around 108 She will be getting intravenous digoxin to control the heart rate Remains tachycardic and cardiology is managing (4) Severe pulmonary hypertension: (5) Severe mitral valve stenosis: (6) Moderate mitral regurgitation: Plan Leukocytosis Has been elevated Likely in setting of steroid use No current signs of infection Continue to monitor Diet: DVT prophylaxis: warfarin with heparin bridge Will continue with IV heparin and oral Coumadin for now INR is 1.8 today Likely to be therapeutic tomorrow and possible discharge tomorrow if remains stable INR is 2.2 point today and heparin will be stopped it has been on hold since last night Dispo: per PT/OT recs- recommending acute rehab Discussed with the [id number] Admission and Anticipated Discharge Date Admission Date: November 06, 2024 Subjective 11/07/2024 The patient was seen and examined in the telemetry unit She was admitted with a mechanical fall and fracture of the left hip Noted to have atrial fibrillation on admission Denies any chest pain and/or palpitation Complains pain in the left hip with any movement of the left lower extremity 11/08/2024 The patient was seen and examined in ICU She remains extremely weak and lethargic She has been on 2 pressor support now and has been started on intravenous amiodarone to control the heart rate Denies any chest pain and/or palpitation and does not have any shortness of breath at rest No abdominal pain nausea and/or vomiting 11/09/2024 The patient was seen and examined in ICU She has been feeling a little better following blood transfusion Feels tired otherwise denies any significant pain or other symptoms 11/10/2024 The patient was seen and examined in ICU She has been feeling much better and denies any significant symptoms No shortness of breath and no pain at rest 11/18/2024 The patient was seen and examined in telemetry unit She has been feeling much better but remains weak and lethargic Her blood pressure was noted to be low this morning with lower 80s without any symptoms at rest Complains of occasional dizziness with ambulation which has not been new symptoms for her 11/19/2024 The patient was seen and examined in the telemetry unit She has been better but feels very depressed Denies any other significant symptoms 11/20/2024 The patient was seen and examined in telemetry unit She has been feeling better but remains weak Has had some shortness of breath following changing of bed position and she is trying to come out of bed Heart rate is noted to be high at 114 11/21/2024 The patient was seen and examined in telemetry unit She remains weak and lethargic but denies any other significant symptoms Noted to have bleeding from the drain this from the wound VAC and the wound VAC was changed at around 2 AM without evidence of bleeding Awaiting further evaluation by the Ortho 11/22/2024 The patient was seen and examined in telemetry unit She has been stable but remains generally weak and lethargic Her wound VAC is draining bloody liquid and she remains tachycardic Denies any chest pain, palpitation or increasing shortness of breath 12/23/2024 The patient was seen and examined in telemetry unit She is a status post incision and drainage of left hip hematoma/collection She has been weak and lethargic but denies any other significant symptoms Review of Systems Review of Systems: All systems reviewed and are unremarkable except as noted below Physical Exam Physical Exam: Lying in bed with minimal shortness of breath at rest and distress generally Constitutional: well developed, well nourished, + ill appearing and + obese Eyes: PERRL, conjunctivae normal, anicteric sclerae ENMT: external ear and nose normal, oropharynx normal Neck: trachea midline, no thyromegaly Respiratory: no respiratory distress Auscultation: lungs clear to auscultation bilaterally and + diminished lung sounds ( minimal crackles at the bases) Cardiovascular: Rate/Rhythm: + irregularly irregular; not tachycardic Heart Sounds: normal S1, normal S2 and + murmur Extremities: + edema (Trace edema bilaterally) Gastrointestinal (Abdomen): Inspection/Auscultation: normal bowel sounds; abdomen not distended Percussion/Palpation: abdomen soft; abdomen nontender Musculoskeletal: Status post left hip incision and drainage but no other acute arthritis involving any of the joint Neurologic: normal touch/pain/proprioception and moves all extremities (Less movement with the left lower extremity due to fracture) Psychiatric: A+Ox3, euthymic affect Lymphatic: no cervical or axillary lymphadenopathy Results & Data Results & Data Vital Signs (Past 12 Hours) Vital Signs Temp Pulse Pulse Resp BP Pulse Ox O2 Del Method 11/23/24 11:07 36.4 C L 109 H 18 100/74 94 Nasal Cannula 11/23/24 10:30 104 H 24 93/75 L 95 Nasal Cannula 11/23/24 10:20 37.1 C 112 H 20 97/73 L 96 Nasal Cannula 11/23/24 10:10 114 H 22 94/77 L 96 Oxymask 11/23/24 10:00 121 H 16 107/68 94 Oxymask 11/23/24 09:50 36.2 C L 119 H 14 89/61 L 93 Oxymask 11/23/24 07:08 36.6 C 85 18 103/70 92 Room Air O2 Flow Rate 11/23/24 11:07 2 11/23/24 10:30 2 11/23/24 10:20 2 11/23/24 10:10 4 11/23/24 10:00 6 11/23/24 09:50 6 11/23/24 07:08 Laboratory Results Short CBC 11/23/24 Range/Units 06:37 WBC 7.81 (4.8-10.8) K/ul Hgb 10.3 L (12.0-16.0) g/dl Hct 33.3 L (37.0-47.0) % Plt Count 130 (130-400) K/uL BMP 11/23/24 06:37 Sodium 134 L Potassium 3.4 L Chloride 100 Carbon Dioxide 25 BUN 29 H Creatinine 0.99 Glucose 105 H Calcium 8.0 L Medications Administered Current Inpatient Medications Atropine Sulfate (Atropine Sulfate 0.1 Mg/Ml 10ml Syr) 0.5 mg IV Q1M PRN PRN Reason: PACU Use-HR<40 &/or Bradycardi Stop: 11/23/24 18:03 Calcium Carbonate (Calcium Carbonate 1,250 Mg/5 Ml Udc) 1,250 mg PO BID AFSHAN Stop: 12/12/24 08:59 Last Admin: 11/23/24 11:20 Dose: Not Given Ephedrine Sulfate (Ephedrine Sulfate 50 Mg/Ml Amp) 5 mg IV Q5M PRN PRN Reason: PACU Use Only-SBP<90 mmHg Stop: 11/23/24 18:03 Fentanyl Citrate (Fentanyl Citrate Pf 100 Mcg/2 Ml Vial) 25 mcg IV Q5M PRN PRN Reason: PACU Use Only-Pain Stop: 11/23/24 18:03 Flumazenil (Flumazenil 0.1 Mg/1 Ml 10 Ml Vial) 0.2 mg IV Q2M PRN PRN Reason: PACU Use Only-Benzo Reversal Stop: 11/23/24 18:03 Promethazine HCl 6.25 mg/ (Sodium Chloride) 50.25 mls @ 204 mls/hr IV ONCE PRN PRN Reason: PACU Use Only-Nausea/Vomiting Stop: 11/23/24 18:03 Metoprolol Succinate (Metoprolol Succ 50mg Ext Rel Tab) 50 mg PO QAM [facility] Stop: 12/20/24 08:59 Last Admin: 11/23/24 11:17 Dose: 50 mg Metoprolol Succinate (Metoprolol Succ 25mg Ext Rel Tab) 25 mg PO [facility] Stop: 12/19/24 20:59 Last Admin: 11/22/24 21:18 Dose: 25 mg Midodrine (Midodrine Hcl 2.5 Mg Tab) 2.5 mg PO TID@0800,1200,1700 [facility] Stop: 12/19/24 16:59 Last Admin: 11/23/24 11:16 Dose: 2.5 mg Naloxone HCl (Naloxone Hcl 0.4 Mg/1 Ml Vial/Carp) 0.2 mg IV Q2M PRN PRN Reason: PACU Use Only-Opiate Reversal Stop: 11/23/24 18:03 Nitroglycerin (Nitroglycerin Sl 0.4 Mg/Tab Tab) 0.4 mg SL Q5M PRN PRN Reason: Chest Pain Stop: 12/06/24 23:15 Ondansetron HCl (Ondansetron Inj 2 Mg/Ml 2 Ml Vial) 4 mg IV Q6H PRN PRN Reason: Nausea And Vomiting Stop: 12/06/24 23:20 Last Admin: 11/14/24 00:06 Dose: 4 mg Ondansetron HCl (Ondansetron Inj 2 Mg/Ml 2 Ml Vial) 4 mg IV ONCE PRN PRN Reason: PACU Use Only-Nausea/Vomiting Stop: 11/23/24 18:03 Oxycodone/Acetaminophen (Oxycodone/Acetaminophen 5mg/325mg Tab) 1 tab PO Q4H PRN PRN Reason: Pain Stop: 11/25/24 09:35 Last Admin: 11/22/24 21:18 Dose: 1 tab Pantoprazole Sodium (Pantoprazole 40 Mg Tab) 40 mg PO [facility] Stop: 12/13/24 08:59 Last Admin: 11/23/24 11:17 Dose: 40 mg Polyethylene Glycol (Polyethylene (Miralax) 17 Gm Pack) 17 gm PO DAILY PRN PRN Reason: Constipation Stop: 12/06/24 23:15 Last Admin: 11/18/24 10:34 Dose: 17 gm Potassium Chloride (Potassium Chloride Crtab 20 Meq Tabcr) 20 meq PO [facility] Stop: 12/20/24 08:59 Last Admin: 11/23/24 11:17 Dose: 20 meq Torsemide (Torsemide 20 Mg Tab) 20 mg PO [facility] Stop: 12/19/24 08:59 Last Admin: 11/23/24 11:17 Dose: 20 mg Vitamin D (Cholecalciferol 125 Mcg (5,000 Units) Tab) 125 mcg PO [facility] Stop: 12/17/24 10:14 Last Admin: 11/23/24 11:17 Dose: 125 mcg Warfarin Sodium (Warfarin Sod 7.5 Mg Tab) 7.5 mg PO DAILY@1600 [facility] Stop: 12/17/24 17:14 Last Admin: 11/21/24 15:31 Dose: Not Given
--- NOTE | 2024-11-23 13:36 | Cardiology Progress Note ---
<Statement entered by Sharon Rushing DO - 11/23/24 13:54> I have reviewed the advanced practitioner's documentation and agree with the plan of care. I accept the responsibility for the associated risk. 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 Resting echocardiography suggests low likelihood of restoring and maintaining sinus rhythm. Recommend rate control. Continue metoprolol succinate as prescribed. Add oral digoxin, 125 mcg/day for additional heart rate control INR 1.5 today. Status post I&D of the left hip hematoma earlier today. Resume Coumadin without heparin bridge when OK with Orthopedics. Heart failure with preserved ejection fraction, valvular heart disease, severe pulmonary hypertension. Volume status appears OK. Continue oral torsemide. Recommend supplementing potassium orally. Admission and Anticipated Discharge Date Admission Date: November 06, 2024 Subjective Patient seen and examined. Chart, medications, and telemetry reviewed. Breathing OK. No chest pain. No overt palpitations. Telemetry: Atrial fibrillation with occasional PVC or aberrantly conduced complexes, heart rates in the 80's to 120 bpm. Review of Systems Review of Systems: Complete Review of Systems is as stated above, negative, or noncontributory. Physical Exam Physical Exam: General: Pleasant. Comfortable. Neck: No overt JVD. Heart: Irregularly irregular at 110 bpm. + Systolic and diastolic murmur. Lungs: Clear anteriorly. Extremities: No distal distal edema. Results & Data Vital Signs (Past 12 Hours) Vital Signs Temp Pulse Pulse Resp BP Pulse Ox O2 Del Method 11/23/24 11:07 36.4 C L 109 H 18 100/74 94 Nasal Cannula 11/23/24 10:30 104 H 24 93/75 L 95 Nasal Cannula 11/23/24 10:20 37.1 C 112 H 20 97/73 L 96 Nasal Cannula 11/23/24 10:10 114 H 22 94/77 L 96 Oxymask 11/23/24 10:00 121 H 16 107/68 94 Oxymask 11/23/24 09:50 36.2 C L 119 H 14 89/61 L 93 Oxymask 11/23/24 07:08 36.6 C 85 18 103/70 92 Room Air O2 Flow Rate 11/23/24 11:07 2 11/23/24 10:30 2 11/23/24 10:20 2 11/23/24 10:10 4 11/23/24 10:00 6 11/23/24 09:50 6 11/23/24 07:08 Laboratory Results Coagulation 11/23/24 Range/Units 06:37 PT 15.8 H (9.0-12.0) Seconds CBC 11/23/24 Range/Units 06:37 WBC 7.81 (4.8-10.8) K/ul RBC 3.13 L (4.20-5.40) M/uL Hgb 10.3 L (12.0-16.0) g/dl Hct 33.3 L (37.0-47.0) % Plt Count 130 (130-400) K/uL Neut # (Auto) 6.33 (1.40-6.50) K/uL Lymph # (Auto) 0.71 L (1.20-3.40) K/uL [place] # (Auto) 0.64 H (0.11-0.59) K/uL Eos # (Auto) 0.02 (0.00-0.50) K/uL Baso # (Auto) 0.03 (0.00-0.20) K/uL Comprehensive Metabolic Panel 11/23/24 Range/Units 06:37 Sodium 134 L (136-145) mmol/L Potassium 3.4 L (3.5-5.1) mmol/L Chloride 100 (98-107) mmol/L Carbon Dioxide 25 (21-32) mmol/L BUN 29 H (6-23) mg/dl Creatinine 0.99 (0.6-1.2) mg/dl Glucose 105 H (70-99(Fasting)) mg/dl Calcium 8.0 L (8.6-10.3) mg/dl Intake and Output 11/22/24 11/23/24 11/23/24 22:59 06:59 14:59 Intake Total 150 / 728.667 100 / 728.667 550 / 550 Output Total 1100 / 3000 500 / 3000 100 / 100 Balance -950 / -2271.333 -400 / -2271.333 450 / 450 Intake: IV 200 / 200 Potassium Chloride / Wtr 10 meq 100 / 100 In 100 ml @ 100 mls/hr IV Q1H AFSHAN Rx#:[id number] Tranexamic Acid / 0.7% NaCl 1, 100 / 100 000 mg In 100 ml @ 600 mls/hr IV PREOP ONE Rx#:[id number] IV Perioperative 350 / 350 Oral 150 / 490 100 / 490 Output: Estimated Blood Loss 100 / 100 Urine Amount (Catheter) 1100 / 3000 500 / 3000 External 1100 / 3000 500 / 3000 # Bowel Movements 0 / 0 Other: Weight 114 kg 114 kg Patient Weight 11/24/24 06:59 Weight 114 kg (3) Aortic stenosis Cardiac valve disease etiology: etiology unspecified Qualified Code(s): I35.0 - Nonrheumatic aortic (valve) stenosis (4) Mitral stenosis Cardiac valve disease etiology: etiology unspecified Qualified Code(s): I05.0 - Rheumatic mitral stenosis
[2024-11-23] MEDS ORDERED: WARFARIN SOD 7.5 MG TAB PO SCH (16:00)
[2024-11-23] MEDS: DIGOXIN 0.125 MG TAB PO SCH (16:57)
[2024-11-23] MEDS: SODIUM CHLORIDE 0.9% 250 ML IV ONE (23:10)
[2024-11-24] MEDS: MIDODRINE HCL 2.5 MG TAB PO STA ×2 (00:17→04:28)
[2024-11-24 00:28] LABS: Hematocrit (blood only) 28.3 % (37.0-47.0); Hemoglobin 8.9 g/dl (12.0-16.0)
[2024-11-24] MEDS: SODIUM CHLORIDE 0.9% 500 ML IV ONE (03:01)
[2024-11-24] MEDS: HYDROCORTISONE SOD 50 MG in SYRINGE 0 ML IV STA (05:25)
[2024-11-24 07:11] LABS: Basophils # (auto) 0.01 K/uL (0.00-0.20); Basophils % (auto) 0.1 %; Eosinophils # (auto) 0.01 K/uL (0.00-0.50); Eosinophils % (auto) 0.1 %; Hematocrit (blood only) 28.2 % (37.0-47.0); Hemoglobin 8.9 g/dl (12.0-16.0); Immature Granulocytes # (auto) 0.05 K/uL (0.01-0.20); Immature Granulocytes % (auto) 0.7 %; Lymphocytes # (auto) 0.62 K/uL (1.20-3.40); Lymphocytes % (auto) 8.9 %; Mean Corpuscular Hgb Conc 31.6 g/dL (32.0-36.0); Mean Corpuscular Volume 104.4 fL (80.0-100.0); Monocytes # (auto) 0.53 K/uL (0.11-0.59); Monocytes % (auto) 7.6 %; Neutrophils # (auto) 5.74 K/uL (1.40-6.50); Neutrophils % (auto) 82.6 %; Nucleated RBC # (auto) 0.03 K/uL (0.00-0.12); Nucleated RBC % (auto) 0.4 %; Platelet Count 140 K/uL (130-400); RDW Coefficient of Variation 27.1 % (11.5-14.5); White Blood Count 6.96 K/ul (4.8-10.8)
[2024-11-24 07:34] LABS: BUN Creatinine Ratio 31.3 (10-20); Calcium 7.6 mg/dl (8.6-10.3); Creatinine Clr Calc Pharmacy 64.3 ml/min; Magnesium 1.8 mg/dl (1.7-2.4); Potassium 4.4 mmol/L (3.5-5.1)
[2024-11-24 07:39] LABS: INR 1.5 (0.9-1.1); Prothrombin Time 16.1 Seconds (9.0-12.0)
[2024-11-24 07:42] LABS: Anisocytosis Present; Ovalocytes 1+; Polychromasia 2+; Tear Drop Cells 1+
[2024-11-24] MEDS: CALCIUM GLUCONATE 1,000 MG/60 ML BAG IV ONE (09:34)
--- NOTE | 2024-11-24 09:37 | Orthopedic Progress Note ---
Date of Service November 24, 2024 Assessment & Plan (1) Closed left hip fracture: Plan: IMPRESSION: POD #1 s/p I&D Left hip, with E. Coli & Klebsiella infection, 2 weeks s/p ORIF L hip fracture, doing better PLAN: Acute anemia blood loss, Hgb 8.9 <- 10.3. Will start Rocephin 2g IV q24hrs Consult ID Continue to follow Micro for Sensitivities PT/OT WBAT LLE OOB to chair Continue pain control Change dressing and remove HVAC 11/25/24 Continue care per primary service Admission and Anticipated Discharge Date Admission Date: November 06, 2024 Subjective Left hip is much less painful. Feeling a bit out of it. Physical Exam Physical Exam: LLE: NV intact. Optifoam in place. Dressing is clean, dry, intact. HVAC in place functioning (output last 2 shifts 160/100 cc). Calf soft and non-tender. Significant bruising buttock.Negative Celi. Results & Data Vital Signs (Past 12 Hours) Vital Signs Temp Pulse Pulse Resp BP BP Pulse Ox 11/24/24 07:41 36.4 C L 76 20 91/61 L 97 11/24/24 04:28 82/49 L 11/24/24 03:40 86/55 L 11/24/24 03:33 83/53 L 11/24/24 02:51 80/42 L 11/24/24 02:50 75/45 L 11/24/24 02:41 36.4 C L 68 19 76/48 L 97 11/24/24 02:40 71 18 74/44 L 97 11/24/24 00:00 69 11/23/24 23:55 83/53 L 11/23/24 23:45 76/54 L 11/23/24 22:07 36.6 C 74 14 2 L 11/23/24 22:06 88/55 L O2 Del Method O2 Flow Rate 11/24/24 07:41 Nasal Cannula 2 11/24/24 04:28 11/24/24 03:40 11/24/24 03:33 11/24/24 02:51 11/24/24 02:50 11/24/24 02:41 Nasal Cannula 2 11/24/24 02:40 Nasal Cannula 2 11/24/24 00:00 11/23/24 23:55 11/23/24 23:45 11/23/24 22:07 Nasal Cannula 2 11/23/24 22:06 Laboratory Results 11/24/24 11/24/24 Range/Units 06:34 00:10 WBC 6.96 (4.8-10.8) K/ul RBC 2.70 L (4.20-5.40) M/uL Hgb 8.9 L 8.9 L (12.0-16.0) g/dl Hct 28.2 L 28.3 L (37.0-47.0) % MCV 104.4 H (80.0-100.0) fL MCH 33.0 (25.0-34.0) pg MCHC 31.6 L (32.0-36.0) g/dL RDW Std Deviation 95.0 H (36.4-46.3) fL RDW Coeff of [place]if[place] 27.1 H (11.5-14.5) % Plt Count 140 (130-400) K/uL MPV 11.0 (9.4-12.4) fL Immature Gran % (Auto) 0.7 % Neut % (Auto) 82.6 % Lymph % (Auto) 8.9 % [place] % (Auto) 7.6 % Eos % (Auto) 0.1 % Baso % (Auto) 0.1 % Neut # (Auto) 5.74 (1.40-6.50) K/uL Lymph # (Auto) 0.62 L (1.20-3.40) K/uL [place] # (Auto) 0.53 (0.11-0.59) K/uL Eos # (Auto) 0.01 (0.00-0.50) K/uL Baso # (Auto) 0.01 (0.00-0.20) K/uL Immature Gran # (Auto) 0.05 (0.01-0.20) K/uL Absolute Nucleated RBC 0.03 (0.00-0.12) K/uL Nucleated RBC % (auto) 0.4 % Polychromasia 2+ Anisocytosis Present Tear Drop Cells 1+ Ovalocytes 1+ PT 16.1 H (9.0-12.0) Seconds INR 1.5 H (0.9-1.1) Sodium 134 L (136-145) mmol/L Potassium 4.4 D (3.5-5.1) mmol/L Chloride 102 (98-107) mmol/L Carbon Dioxide 25 (21-32) mmol/L Anion Gap 7 (3-11) BUN 30 H (6-23) mg/dl Creatinine 0.96 (0.6-1.2) mg/dl Est Cr Clr Drug Dosing 64.3 ml/min eGFR 62.09 BUN/Creatinine Ratio 31.3 H (10-20) Glucose 97 (70-99(Fasting)) mg/dl Calcium 7.6 L (8.6-10.3) mg/dl Magnesium 1.8 (1.7-2.4) mg/dl Prealbumin Pending 25-OH Vitamin D Total 51.9 (30-100) ng/ml Source: Hip,Left OV Order: Ordered: Aer/Rin Cult/Sm Comments: Comment Culture #1--Left Hip Procedure Result Verified Site Gram Stain Final 11/23/24 Gram Stain Result Rare WBCs Seen Rare Gram Positive Cocci Aero/Rin Cult Preliminary 11/24/24-0810 Organism 1 Escherichia coli Quantity Moderate Sens Sensitivities to Follow Organism 2 Klebsiella oxytoc/[place] ornith Quantity Moderate Sens Sensitivities to Follow
[2024-11-24 10:07] LABS: Prealbumin 10.1 mg/dl (20-40)
--- NOTE | 2024-11-24 11:55 | Hospitalist Progress Note ---
Date of Service November 24, 2024 Assessment & Plan (1) Closed left hip fracture: Plan: 74-year-old female from [place] visiting [place] with past medical history significant for hypertension, CHF who is status post fall with left hip fracture, s/p ORIF on 11/07/24 with postop anemia and hypotension requiring transfer to the ICU. Closed left hip fracture Status post mechanical fall Orthopedics consulted, appreciate recs -s/p ORIF on 11/07/24 -concern for infection on 11/15-11/16: Ortho evaluated, not infection, concern for edema, wound vac placed On diuretics started by cardiology on 11/16/24 PT/OT- recommending acute rehab Appreciate reevaluation by the orthopedic surgeon regarding drainage from the surgical site Wound VAC has been placed and draining small amount of serous fluid Doubt any infection Denies any significant pain in the joints and the drainage seems to be decreased Denies any significant pain and swelling involving the surgical site left upper thigh and hip Noted to have bleeding from the wound VAC drain is last night but after about 2 AM no more bleeding following changing of the wound VAC She denies any significant pain and this morning drainage seems to be minimal serosanguineous Bleeding from the wound through the wound VAC CT of the left hip with contrast did not show any acute bleeding Seems to be hematoma with resolving and appreciate Ortho's recommendation to washout likely tomorrow or day after Hemoglobin remains Stable and INR is 1.9 Will keep her n.p.o. after midnight and hold Coumadin Status post incision and drainage of left hip on Large hematoma was evacuated In the wound bed was placed at the operation site She remains weak and lethargic does not have any significant pain following the procedure Will restart Coumadin this evening The wound culture grew E. coli and Klebsiella oxytoca Ceftriaxone has been started intravenously and an ID consult has been placed by the orthopedic surgeon Remains free from any fever and/or chills or any swelling Will continue current antibiotic Hypotension Hypotensive Shock Pt with postop hypotensive shock requiring transfer to the ICU Required vasopressor support x2 Was on midodrine 10mg TID, hydrocortisone and florinef for adrenal support- being weaned Home antihypertensives on hold Improving, downgraded from the ICU on 11/13 after off of pressors for some time On Toprol 25mg BID with hold parameters decreased Hydrocortisone being weaned, midodrine down to 5mg TID Pt now on diuretic from 11/16/24 Still has occasional hypotension and she is off any pressor agents Has been on metoprolol succinate 25 mg twice daily and also midodrine for blood pressure support Her blood pressure remains stable at 140/70 and heart rate is controlled at 95 Blood pressure remains stable at systolic 100 Blood pressure remains on the lower side at 106/68 Her hydrocortisone is stopped today Her blood pressure remains on the softer side at 94/64 Blood pressure remains on the lower side at 100/74 and heart rate is 109 Chart blood pressure was noted to be low last night and received a total of 750 mL of normal saline and extra dose of 755 mg midodrine and also a dose of hydr ocortisone 50 mg Blood pressure remains reasonably stable at the lower side of 90 to 100 mmHg Will continue her current medications as tolerated Acute Blood Loss Anemia post op, requiring 3U pRBCs thus far CT abd/pelvis noting large hematoma Heparin previously on hold, has since been resumed with start of warfarin for valvular a fib. Hgb stable Continue to monitor Hemoglobin remains stable at 9.3 hemoglobin remains stable at 10.3 as of 11/20/2024 Hemoglobin remains stable at 9.3 Hemoglobin remains stable at 8.9 minimally decreased compared with yesterday of 10.3 may be in part due to dilution and will monitor Acute depression Feels very depressed and wanted to have some help Appreciate psychiatrist input and recommendation Plan to start duloxetine 20 mg daily after about 4 weeks to decrease the risk of bleeding She is agreeable to start duloxetine 20 mg daily after about 4 weeks (2) Chronic heart failure with preserved ejection fraction: Plan: Acute on Chronic heart failure with preserved EF Hypoxia Now with evidence of acute CHF during this admission Extremities swollen Seeping fluid out of surgical left hip wound Cardiology consulted, appreciate recs -started on IV Lasix 20mg BID on 11/16 Wean oxygen as tolerated No evidence of fluid overload Has not been getting any intravenous fluid to avoid any fluid overload the ER Electrolytes remain unremarkable and received 1 g of calcium today Significant valvular heart disease Has moderate aortic stenosis, severe mitral valve stenosis and moderate mitral regurgitation Severe pulmonary hypertension as well Echo with EF 65-70%, mod LVH, LA severely dilated, mild to mod , mild MS, severe MR will likely need valvular heart surgery will need to have follow-up appointments with Cardiac/Thoracic surgeon as an outpatient (3) Atrial fibrillation with controlled ventricular response: Plan: Atrial Fibrillation with RVR Has significant valvular heart disease with atrial fibrillation and increased ventricular rate Was on IV amiodarone, then transitioned to oral amiodarone before being discontinued. Pt was then started on Toprol Anticoagulation previously on hold in the setting of acute blood loss anemia- he janeth resumed. Warfarin restarted with heparin bridge Cardiology consulted and managing, appreciate recs Improving 11/14- INR on 11/07 1.3. started on warfarin today with heparin bridge. Will need close monitoring of H/H 11/15- continuing Toprol XL 25mg BID with warfarin and heparin bridge, hgb stable at 8.3 11/16-hgb stable >8, INR still 1.1. Continue warfarin with heparin bridge 11/17- hgb stable at 8.6, INR 1.1 but noted PT of 12.3. Given hematoma and severe bleed hx will defer on additional extra warfarin doses at this time. INR remains subtherapeutic at 1.2 Will continue Warferin at 7.5 mg daily and monitor INR INR is 1.5 today and will continue Coumadin at 7.5 mg daily Heart rate is elevated at 114- continue beta-jose and will observe Heart rate remains elevated at around 108 She will be getting intravenous digoxin to control the heart rate Heart rate remains elevated at 111 and has been getting digoxin discussion on top of regular metoprolol (4) Severe pulmonary hypertension: (5) Severe mitral valve stenosis: (6) Moderate mitral regurgitation: Plan Leukocytosis Has been elevated Likely in setting of steroid use No current signs of infection Continue to monitor Diet: HH DVT prophylaxis: warfarin with heparin bridge Will continue with IV heparin and oral Coumadin for now INR is 1.8 today Likely to be therapeutic tomorrow and possible discharge tomorrow if remains stable INR is 2.2 point today and heparin will be stopped it has been on hold since last night INR remains low at 1.5 and will continue current dose of Coumadin of 7.5 mg daily seen Dispo: per PT/OT recs- recommending acute rehab Discussed with the [id number] Admission and Anticipated Discharge Date Admission Date: November 06, 2024 Subjective 11/07/2024 The patient was seen and examined in the telemetry unit She was admitted with a mechanical fall and fracture of the left hip Noted to have atrial fibrillation on admission Denies any chest pain and/or palpitation Complains pain in the left hip with any movement of the left lower extremity 11/08/2024 The patient was seen and examined in ICU She remains extremely weak and lethargic She has been on 2 pressor support now and has been started on intravenous amiodarone to control the heart rate Denies any chest pain and/or palpitation and does not have any shortness of breath at rest No abdominal pain nausea and/or vomiting 11/09/2024 The patient was seen and examined in ICU She has been feeling a little better following blood transfusion Feels tired otherwise denies any significant pain or other symptoms 11/10/2024 The patient was seen and examined in ICU She has been feeling much better and denies any significant symptoms No shortness of breath and no pain at rest 11/18/2024 The patient was seen and examined in telemetry unit She has been feeling much better but remains weak and lethargic Her blood pressure was noted to be low this morning with lower 80s without any symptoms at rest Complains of occasional dizziness with ambulation which has not been new symptoms for her 11/19/2024 The patient was seen and examined in the telemetry unit She has been better but feels very depressed Denies any other significant symptoms 11/20/2024 The patient was seen and examined in telemetry unit She has been feeling better but remains weak Has had some shortness of breath following changing of bed position and she is trying to come out of bed Heart rate is noted to be high at 114 11/21/2024 The patient was seen and examined in telemetry unit She remains weak and lethargic but denies any other significant symptoms Noted to have bleeding from the drain this from the wound VAC and the wound VAC was changed at around 2 AM without evidence of bleeding Awaiting further evaluation by the Ortho 11/22/2024 The patient was seen and examined in telemetry unit She has been stable but remains generally weak and lethargic Her wound VAC is draining bloody liquid and she remains tachycardic Denies any chest pain, palpitation or increasing shortness of breath 11/23/2024 The patient was seen and examined in telemetry unit She is a status post incision and drainage of left hip hematoma/collection She has been weak and lethargic but denies any other significant symptoms 11/24/2024 Patient was seen and examined in medical telemetry unit She was noted to have low blood pressure during the night and received 750 mL of normal saline bolus and also extra mild protein of 7.5 mg and received a dose of hydrocortisone of 50 mg Remains weak but denies any other significant symptoms Review of Systems Review of Systems: All systems reviewed and are unremarkable except as noted below Physical Exam Physical Exam: Lying in bed with minimal shortness of breath at rest and distress generally Constitutional: well developed, well nourished, + ill appearing and + obese Eyes: PERRL, conjunctivae normal, anicteric sclerae ENMT: external ear and nose normal, oropharynx normal Neck: trachea midline, no thyromegaly Respiratory: no respiratory distress Auscultation: lungs clear to auscultation bilaterally and + diminished lung sounds ( minimal crackles at the bases) Cardiovascular: Rate/Rhythm: + irregularly irregular; not tachycardic Heart Sounds: normal S1, normal S2 and + murmur Extremities: + edema (Trace edema bilaterally) Gastrointestinal (Abdomen): Inspection/Auscultation: normal bowel sounds; abdomen not distended Percussion/Palpation: abdomen soft; abdomen nontender Musculoskeletal: Left hip area shows decrease in swelling and tenderness Neurologic: normal touch/pain/proprioception and moves all extremities (Less movement with the left lower extremity due to fracture) Psychiatric: A+Ox3, euthymic affect Lymphatic: no cervical or axillary lymphadenopathy Results & Data Results & Data Vital Signs (Past 12 Hours) Vital Signs Temp Pulse Pulse Pulse Resp BP BP 11/24/24 11:07 36.7 C 111 H 20 101/71 11/24/24 07:41 36.4 C L 76 20 91/61 L 11/24/24 04:28 82/49 L 11/24/24 03:40 86/55 L 11/24/24 03:33 83/53 L 11/24/24 02:51 80/42 L 11/24/24 02:50 75/45 L 11/24/24 02:41 36.4 C L 68 19 76/48 L 11/24/24 02:40 71 18 74/44 L 11/24/24 00:00 69 11/23/24 23:55 83/53 L Pulse Ox O2 Del Method O2 Flow Rate 11/24/24 11:07 90 Room Air 11/24/24 07:41 97 Nasal Cannula 2 11/24/24 04:28 11/24/24 03:40 11/24/24 03:33 11/24/24 02:51 11/24/24 02:50 11/24/24 02:41 97 Nasal Cannula 2 11/24/24 02:40 97 Nasal Cannula 2 11/24/24 00:00 11/23/24 23:55 Laboratory Results Short CBC 11/24/24 11/24/24 Range/Units 00:10 06:34 WBC 6.96 (4.8-10.8) K/ul Hgb 8.9 L 8.9 L (12.0-16.0) g/dl Hct 28.3 L 28.2 L (37.0-47.0) % Plt Count 140 (130-400) K/uL BMP 11/24/24 06:34 Sodium 134 L Potassium 4.4 D Chloride 102 Carbon Dioxide 25 BUN 30 H Creatinine 0.96 Glucose 97 Calcium 7.6 L Medications Administered Current Inpatient Medications Calcium Carbonate (Calcium Carbonate 1,250 Mg/5 Ml Udc) 1,250 mg PO BID AFSHAN Stop: 12/12/24 08:59 Last Admin: 11/24/24 08:03 Dose: 1,250 mg Digoxin (Digoxin 0.125 Mg Tab) 0.125 mg PO DAILY@1600 [facility] Stop: 12/23/24 15:59 Last Admin: 11/23/24 16:57 Dose: 0.125 mg Ceftriaxone Sodium (Rocephin) 2,000 mg in 50 mls @ 100 mls/hr IV Q24H AFSHAN Stop: 12/01/24 09:59 Metoprolol Succinate (Metoprolol Succ 50mg Ext Rel Tab) 50 mg PO QAM AFSHAN Stop: 12/20/24 08:59 Last Admin: 11/24/24 09:27 Dose: 50 mg Metoprolol Succinate (Metoprolol Succ 25mg Ext Rel Tab) 25 mg PO HS [facility] Stop: 12/19/24 20:59 Last Admin: 11/23/24 22:09 Dose: Not Given Midodrine (Midodrine Hcl 2.5 Mg Tab) 2.5 mg PO TID@0800,1200,1700 AFSHAN Stop: 12/19/24 16:59 Last Admin: 11/24/24 08:01 Dose: 2.5 mg Nitroglycerin (Nitroglycerin Sl 0.4 Mg/Tab Tab) 0.4 mg SL Q5M PRN PRN Reason: Chest Pain Stop: 12/06/24 23:15 Ondansetron HCl (Ondansetron Inj 2 Mg/Ml 2 Ml Vial) 4 mg IV Q6H PRN PRN Reason: Nausea And Vomiting Stop: 12/06/24 23:20 Last Admin: 11/14/24 00:06 Dose: 4 mg Oxycodone/Acetaminophen (Oxycodone/Acetaminophen 5mg/325mg Tab) 1 tab PO Q4H [place] PRN Reason: Pain Stop: 11/25/24 09:35 Last Admin: 11/24/24 07:59 Dose: 1 tab Pantoprazole Sodium (Pantoprazole 40 Mg Tab) 40 mg PO [facility] Stop: 12/13/24 08:59 Last Admin: 11/24/24 08:02 Dose: 40 mg Polyethylene Glycol (Polyethylene (Miralax) 17 Gm Pack) 17 gm PO DAILY PRN PRN Reason: Constipation Stop: 12/06/24 23:15 Last Admin: 11/18/24 10:34 Dose: 17 gm Potassium Chloride (Potassium Chloride Crtab 20 Meq Tabcr) 20 meq PO [facility] Stop: 12/20/24 08:59 Last Admin: 11/24/24 08:02 Dose: 20 meq Torsemide (Torsemide 20 Mg Tab) 20 mg PO [facility] Stop: 12/19/24 08:59 Last Admin: 11/24/24 08:02 Dose: 20 mg Vitamin D (Cholecalciferol 125 Mcg (5,000 Units) Tab) 125 mcg PO [facility] Stop: 12/17/24 10:14 Last Admin: 11/24/24 08:02 Dose: 125 mcg Warfarin Sodium (Warfarin Sod 7.5 Mg Tab) 7.5 mg PO DAILY@1600 [facility] Stop: 12/17/24 17:14 Last Admin: 11/23/24 16:56 Dose: 7.5 mg
[2024-11-24] MEDS: cefTRIAXone SODIUM 2,000 MG/50 ML BAG IV SCH (12:00)
--- NOTE | 2024-11-24 12:08 | Infectious Disease Consult ---
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 Found with left hip fracture and new onset Afib. TTE with mild-mod , trace AR, severe MS, moderate MR, mild TR, pulmonary HTN. S/p left hip ORIF on 11/07. Admitted to ICU postop and was placed on pressors and stress steroids. Course c/b blood loss anemia requiring transfusion (CT femur with gluteal hematoma with areas of active bleeding). Pressors eventually weaned off. Noted to have drainage from surgical site on 11/15, seen by surgery, felt it was serous drainage and not infection, managed conservatively. She had a CT pelvis on 11/22 that showed a large hematoma lateral to the left hip, no active extravasation; increased pleural effusions with atelectasis. S/p OR 11/23 for evacuation of hematoma, underwent I+D (per op note, large amount of hematoma was removed, deep cultures were taken, wound was deep to the fascia). Cx resulted with E coli and K oxytoca/Roul ornith. Started on CTX and ID consulted 11/24. She has been afebrile. WBC had been elevated up to 17, currently wnl. Cr wnl. On review of op note, it seems wound was down to fascia but no mention of extending into joint space. Patient does not endorse any pain at the moment. Will keep on CTX as this should cover the isolated organisms while waiting for further culture results. If there is no c/f extension into joint space, then plan to treat for soft tissue infection for a duration of 2 weeks. # Post-surgical site infection OR cx with E coli, K oxytoca, R ornithinolytica # Left hip fracture s/p ORIF 11/07 # New onset afib off amio - f/u cultures from 11/23 - continue CTX 2g IV daily - will adjust abx pending culture results - if no joint involvement, then plan to treat for soft tissue infection with PO abx for a duration of 2 weeks Will continue to follow. If questions or concerns, contact via [employer] or Infectious Disease Call Center . Edie Mallory MD [facility], Division of Infectious Diseases Consultation Information Consultation was provided via telemedicine using two-way real-time interactive telecommunication between the patient and the telemedicine provider. For the duration of the visit, the provider was performing the assessment from a different facility than the patient. This includesuse of bluetooth stethoscope forauscultationperformed by the telepresenter that the telemedicine provider can hear if described in the physical exam. Tow Truck Operator contact information: Please call [facility] Call Center . 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 She had gone to sit on the couch when she missed it and fell onto her left hip with subsequent severe left hip pain and inability to walk. Found with left hip fracture, new onset Afib, and diffuse pulmonary edema. TTE with mild-mod , trace AR, severe MS, moderate MR, mild TR, pulmonary HTN. S/p left hip ORIF on 11/07. Admitted to ICU postop and was placed on pressors and stress steroids. Course c/b blood loss anemia requiring transfusion (CT femur with gluteal hematoma with areas of active bleeding). Pressors eventually weaned off. Noted to have drainage from surgical site on 11/15, seen by surgery, felt it was serous drainage and not infection, managed conservatively. She had a CT pelvis on 11/22 that showed a large hematoma lateral to the left hip, no active extravasation; increased pleural effusions with atelectasis. S/p OR 11/23 for evacuation of hematoma, underwent I+D (per op note, there was bloody drainage from open mid-portion of incision, large amount of hematoma was removed, deep cultures were taken, wound was deep to the fascia). Cx resulted with E coli and K oxytoca/Roul ornith. Started on CTX. ID consulted 11/24. She has been afebrile. WBC had been elevated up to 17, currently wnl. Cr wnl. On evaluation, patient reports feeling much better since her last surgery. She said she had felt pressure in her left hip, no pain. She doesnt recall a rash on her leg, just some irritation. She has not had any chills. No current pain. No shortness of breath. Denies any recent hospitalizations or antibiotic use. Allergies Allergy/AdvReac Type Severity Reaction Status Date / Time Penicillins Allergy Itching Verified 11/06/24 23:26 Home Medications Medication Instructions Recorded Confirmed Type carvedilol 25 mg tablet 25 mg PO BID 11/06/24 11/06/24 History hydrochlorothiazide 25 mg tablet 25 mg PO DAILY 11/06/24 11/06/24 History lisinopril 20 mg tablet 20 mg PO DAILY 11/06/24 11/06/24 History Patient History Social History Smoking Status: Former smoker Smoking End Date: 5 years ago; Hx Alcohol Use: Yes Alcohol type: wine Hx Substance Use: No Preferred Language: Kittitian Communication Ability: Effective Right Of Way Supervisor Required: No Beliefs That Will Affect Care: None Current Living Situation: Spouse Other Information That Helps Us Care for You: No Feels Safe at Home: Yes Safety Concerns: Feels Safe At This Time Assistive Devices: Cane Review of System 10-point review of systems reviewed and are negative except for as above. Physical Exam Physical Exam: General: Awake, alert, no acute distress HEENT: NC/AT, EOMI Neck: supple Lungs: respirations non-labored Heart: nl peripheral perfusion Abdomen: soft, nontender Ext: left thigh with dressing in place, drain with bloody output Skin: no rash Neuro: moving all extremities Results & Data Vital Signs (Past 12 Hours) Vital Signs Temp Pulse Pulse Resp BP BP Pulse Ox 11/24/24 11:07 36.7 C 111 H 20 101/71 90 11/24/24 07:41 36.4 C L 76 20 91/61 L 97 11/24/24 04:28 82/49 L 11/24/24 03:40 86/55 L 11/24/24 03:33 83/53 L 11/24/24 02:51 80/42 L 11/24/24 02:50 75/45 L 11/24/24 02:41 36.4 C L 68 19 76/48 L 97 11/24/24 02:40 71 18 74/44 L 97 O2 Del Method O2 Flow Rate 11/24/24 11:07 Room Air 11/24/24 07:41 Nasal Cannula 2 11/24/24 04:28 11/24/24 03:40 11/24/24 03:33 11/24/24 02:51 11/24/24 02:50 11/24/24 02:41 Nasal Cannula 2 11/24/24 02:40 Nasal Cannula 2 Laboratory Results Labs reviewed. Diagnostic Findings Imaging reviewed. (2) Closed fracture of left hip Encounter type: initial encounter Qualified Code(s): S72.002A - Fracture of unspecified part of neck of left femur, initial encounter for closed fracture (3) Atrial fibrillation Atrial fibrillation type: unspecified Qualified Code(s): I48.91 - Unspecified atrial fibrillation
--- NOTE | 2024-11-24 15:36 | Cardiology Progress Note ---
Date of Service November 24, 2024 Assessment & Plan (1) (HFpEF) heart failure with preserved ejection fraction: (2) Atrial fibrillation with controlled ventricular response: (3) Acute blood loss anemia: (4) Severe mitral insufficiency: (5) Aortic stenosis: Plan Patient slowly improving. Heart failure appears compensated with preserved ejection fraction but mixed valvular heart disease including severe mitral insufficiency moderate aortic and mild mitral stenosis. Atrial rhythms under better control with medications and pain control. Continue current therapies warfarin already resumed Admission and Anticipated Discharge Date Admission Date: November 06, 2024 Subjective Patient was seen and personally examined, chart, telemetry reviewed. Patient feels much more comfortable since surgical drain of hematoma. Unrelenting pain has resolved and patient feels much more comfortable, more mobile in room. Heart rates better controlled Review of Systems Review of Systems: All systems reviewed & are unremarkable except as noted in Subjective Physical Exam Constitutional: no acute distress Neck: trachea midline, no thyromegaly Respiratory: normal respiratory effort, lungs clear to auscultation Cardiovascular: Rate/Rhythm: + irregularly irregular Heart Sounds: + murmur (Grade 3/6 holosystolic); no gallop Vessels: no JVD Extremities: + edema (Chronic stasis changes) Results & Data Vital Signs (Past 12 Hours) Vital Signs Temp Pulse Pulse Resp BP Pulse Ox O2 Del Method 11/24/24 15:16 36.6 C 101 H 20 118/68 90 Room Air 11/24/24 12:55 Room Air 11/24/24 11:07 36.7 C 111 H 20 101/71 90 Room Air 11/24/24 07:41 36.4 C L 76 20 91/61 L 97 Nasal Cannula 11/24/24 04:28 82/49 L 11/24/24 03:40 86/55 L O2 Flow Rate 11/24/24 15:16 11/24/24 12:55 11/24/24 11:07 11/24/24 07:41 2 11/24/24 04:28 11/24/24 03:40 Laboratory Results Laboratory Results - last 24 hr 11/24/24 11/24/24 00:10 06:34 WBC 6.96 RBC 2.70 L Hgb 8.9 L 8.9 L Hct 28.3 L 28.2 L MCV 104.4 H MCH 33.0 MCHC 31.6 L RDW Std Deviation 95.0 H RDW Coeff of Gifty 27.1 H Plt Count 140 MPV 11.0 Immature Gran % (Auto) 0.7 Neut % (Auto) 82.6 Lymph % (Auto) 8.9 [place] % (Auto) 7.6 Eos % (Auto) 0.1 Baso % (Auto) 0.1 Neut # (Auto) 5.74 Lymph # (Auto) 0.62 L [place] # (Auto) 0.53 Eos # (Auto) 0.01 Baso # (Auto) 0.01 Immature Gran # (Auto) 0.05 Absolute Nucleated RBC 0.03 Nucleated RBC % (auto) 0.4 Polychromasia 2+ Anisocytosis Present Tear Drop Cells 1+ Ovalocytes 1+ PT 16.1 H INR 1.5 H Sodium 134 L Potassium 4.4 D Chloride 102 Carbon Dioxide 25 Anion Gap 7 BUN 30 H Creatinine 0.96 Est Cr Clr Drug Dosing 64.3 eGFR 62.09 BUN/Creatinine Ratio 31.3 H Glucose 97 Calcium 7.6 L Magnesium 1.8 Prealbumin 10.1 L 25-OH Vitamin D Total 51.9 (5) Aortic stenosis Cardiac valve disease etiology: etiology unspecified Qualified Code(s): I35.0 - Nonrheumatic aortic (valve) stenosis
[2024-11-25 09:14] LABS: Basophils # (auto) 0.02 K/uL (0.00-0.20); Basophils % (auto) 0.3 %; Eosinophils # (auto) 0.01 K/uL (0.00-0.50); Eosinophils % (auto) 0.1 %; Hematocrit (blood only) 31.2 % (37.0-47.0); Hemoglobin 9.7 g/dl (12.0-16.0); Immature Granulocytes # (auto) 0.07 K/uL (0.01-0.20); Lymphocytes # (auto) 0.66 K/uL (1.20-3.40); Lymphocytes % (auto) 9.7 %; Mean Corpuscular Hemoglobin 32.4 pg (25.0-34.0); Mean Corpuscular Hgb Conc 31.1 g/dL (32.0-36.0); Mean Corpuscular Volume 104.3 fL (80.0-100.0); Mean Platelet Volume 10.4 fL (9.4-12.4); Monocytes # (auto) 0.64 K/uL (0.11-0.59); Monocytes % (auto) 9.4 %; Neutrophils % (auto) 79.5 %; Nucleated RBC # (auto) 0.02 K/uL (0.00-0.12); Nucleated RBC % (auto) 0.3 %; Platelet Count 155 K/uL (130-400); RDW Coefficient of Variation 26.9 % (11.5-14.5); RDW Standard Deviation 95.9 fL (36.4-46.3); Red Blood Count 2.99 M/uL (4.20-5.40)
[2024-11-25 09:33] LABS: Prothrombin Time 20.2 Seconds (9.0-12.0)
[2024-11-25 09:35] LABS: Calcium 8.3 mg/dl (8.6-10.3); Magnesium 1.8 mg/dl (1.7-2.4); Potassium 3.9 mmol/L (3.5-5.1)
[2024-11-25 09:40] LABS: Anisocytosis Present; Polychromasia 2+
[2024-11-25 09:41] LABS: Creatinine Clr Calc Pharmacy 56.2 ml/min
--- NOTE | 2024-11-25 09:56 | Infectious Disease Progress Nt ---
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 Found with left hip fracture and new onset Afib. TTE with mild-mod , trace AR, severe MS, moderate MR, mild TR, pulmonary HTN. S/p left hip ORIF on 11/07. Admitted to ICU postop and was placed on pressors and stress steroids. Course c/b blood loss anemia requiring transfusion (CT femur with gluteal hematoma with areas of acti ve bleeding). Pressors eventually weaned off. Noted to have drainage from surgical site on 11/15, seen by surgery, felt it was serous drainage and not infection, managed conservatively. She had a CT pelvis on 11/22 that showed a large hematoma lateral to the left hip, no active extravasation; increased pleural effusions with atelectasis. S/p OR 11/23 for evacuation of hematoma, underwent I+D (per op note, large amount of hematoma was removed, deep cultures were taken, wound was deep to the fascia). Cx resulted with E coli and K oxytoca/Roul ornith. Started on CTX and ID consulted 11/24. She has been afebrile. WBC had been elevated up to 17, currently wnl. Cr wnl. On review of op note, it seems wound was down to fascia but no mention of extending into joint space. Patient did not c/o any pains. Given positive OR cx, will treat for wound infection, possible superinfection of hematoma. Since wound was quite deep, will treat for a duration of 2 weeks. Based on sensitivities, this can be done with PO cephalosporin. # Post surgical infection OR cx with E coli, K oxytoca, R ornithinolytica # Left hip hematoma s/p evacuation 11/23 # Left hip fracture s/p ORIF 11/07 # New onset afib # PCN allergy itching - f/u cultures - continue CTX 2g IV daily - when stable, ok for PO, ready for discharge, abx can be changed to cefpodoxime 400mg PO bid to complete a 2 week duration (start 11/24, end 12/07) Will discontinue active follow up at this time. Please do not hesitate to reconsult the Infectious Diseases service as needed. Edie Mallory MD [facility], Division of Infectious Diseases Admission and Anticipated Discharge Date Admission Date: November 06, 2024 Subjective This patient recommendation is based on a telemedicine consult request which was completed asynchronously through chart review and information provided by the primary physician. The patient was not seen or examined today. The evaluation is consultative in nature and all patient care and treatment decisions can either be accepted or rejected by the patient's primary hospital-based treating physician using their own independent medical judgment for their patient. Time Spent Reviewing Chart: 31+ minutes BP has been running low, no fever, WBC wnl. Results & Data Vital Signs (Past 12 Hours) Vital Signs Temp Pulse Pulse Resp BP Pulse Ox O2 Del Method 11/25/24 07:56 36.6 C 84 18 83/54 L 95 Room Air 11/25/24 05:46 83 11/25/24 03:32 36.6 C 78 20 98/61 L 98 Room Air 11/24/24 23:54 36.4 C L 84 20 84/53 L 93 Room Air Laboratory Results Labs reviewed. Diagnostic Findings Imaging reviewed. (2) Closed fracture of left hip Encounter type: initial encounter Qualified Code(s): S72.002A - Fracture of unspecified part of neck of left femur, initial encounter for closed fracture (3) Atrial fibrillation Atrial fibrillation type: unspecified Qualified Code(s): I48.91 - Unspecified atrial fibrillation
--- NOTE | 2024-11-25 10:35 | Orthopedic Progress Note ---
Date of Service November 25, 2024 Assessment & Plan (1) Closed left hip fracture: Plan: IMPRESSION: POD #2 s/p I&D Left hip, with E. Coli & Klebsiella infection, 2 weeks s/p ORIF L hip fracture, doing better PLAN: Acute anemia blood loss, stable Hgb 9.7. Will start Rocephin 2g IV q24hrs Consult ID appreciated, continue IV Rocephin 2g IV q24h, then switch to when stable, ok for PO, ready for discharge, abx can be changed to cefpodoxime 400mg PO bid (ID recommended 2 weeks, would like to continue min 4 weeks due to the closeness of the orthopedic hardware. Sensitivities noted Will obtain ESR & CRP with next blood draw, follow weekly PT/OT WBAT LLE OOB to chair Continue pain control Change dressing and remove HVAC later today 11/25/24 Continue care per primary service Admission and Anticipated Discharge Date Admission Date: November 06, 2024 Subjective Feeling much better Physical Exam Physical Exam: Sitting comfortably in a chair. LLE: NV intact. Optifoam in place. Dressing is clean, dry, intact. HVAC in place functioning (output last 2 shifts 100/150/90 cc). Calf soft and non- tender. Significant bruising buttock. Negative Celi. Results & Data Vital Signs (Past 12 Hours) Vital Signs Temp Pulse Pulse Resp BP Pulse Ox O2 Del Method 11/25/24 07:56 36.6 C 84 18 83/54 L 95 Room Air 11/25/24 05:46 83 11/25/24 03:32 36.6 C 78 20 98/61 L 98 Room Air 11/24/24 23:54 36.4 C L 84 20 84/53 L 93 Room Air Laboratory Results 11/25/24 Range/Units 08:24 WBC 6.80 (4.8-10.8) K/ul RBC 2.99 L (4.20-5.40) M/uL Hgb 9.7 L (12.0-16.0) g/dl Hct 31.2 L (37.0-47.0) % MCV 104.3 H (80.0-100.0) fL MCH 32.4 (25.0-34.0) pg MCHC 31.1 L (32.0-36.0) g/dL RDW Std Deviation 95.9 H (36.4-46.3) fL RDW Coeff of Gifty 26.9 H (11.5-14.5) % Plt Count 155 (130-400) K/uL MPV 10.4 (9.4-12.4) fL Immature Gran % (Auto) 1.0 % Neut % (Auto) 79.5 % Lymph % (Auto) 9.7 % [place] % (Auto) 9.4 % Eos % (Auto) 0.1 % Baso % (Auto) 0.3 % Neut # (Auto) 5.40 (1.40-6.50) K/uL Lymph # (Auto) 0.66 L (1.20-3.40) K/uL [place] # (Auto) 0.64 H (0.11-0.59) K/uL Eos # (Auto) 0.01 (0.00-0.50) K/uL Baso # (Auto) 0.02 (0.00-0.20) K/uL Immature Gran # (Auto) 0.07 (0.01-0.20) K/uL Absolute Nucleated RBC 0.02 (0.00-0.12) K/uL Nucleated RBC % (auto) 0.3 % Polychromasia 2+ Anisocytosis Present PT 20.2 H (9.0-12.0) Seconds INR 2.0 H (0.9-1.1) Sodium 132 L (136-145) mmol/L Potassium 3.9 (3.5-5.1) mmol/L Chloride 99 (98-107) mmol/L Carbon Dioxide 25 (21-32) mmol/L Anion Gap 8 (3-11) BUN 33 H (6-23) mg/dl Creatinine 1.10 (0.6-1.2) mg/dl Est Cr Clr Drug Dosing 56.2 ml/min eGFR 52.73 BUN/Creatinine Ratio 30.0 H (10-20) Glucose 92 (70-99(Fasting)) mg/dl Calcium 8.3 L (8.6-10.3) mg/dl Magnesium 1.8 (1.7-2.4) mg/dl Gram Stain Final 11/23/24-1043 Gram Stain Result Rare WBCs Seen Rare Gram Positive Cocci Aero/Rin Cult Preliminary 11/25/24-1032 Organism 1 Escherichia coli Quantity Moderate Sens Sensitivities to Follow Organism 2 Klebsiella oxytoc/Soto ornith Quantity Moderate Sens Sensitivities to Follow Organism 3 Porphyromonas somerae Quantity Moderate Sens No Sensitivities to Follow E coli Kl oxy/Garza RX M.I.C. RX M.I.C. --- --------- --- --------- Amikacin S <=16 S <=16 Amox/Clav S <=8/4 S <=8/4 Ampicillin S <=8 R >16 Amp/Sul S <=4/2 S <=4/2 Cefazolin S <=2 R 8 Cefepime S <=2 S <=2 Cefotaxime S <=2 S <=2 Cefoxitin S <=8 S <=8 Ceftriaxone S <=1 S <=1 Cefuroxime S <=4 S <=4 Ciprofloxacin S <=0.25 S <=0.25 Ertapenem S <=0.5 S <=0.5 Gentamicin S <=2 S <=2 Levofloxacin S <=0.5 S <=0.5 Meropenem S <=1 S <=1 Tobramycin S <=2 S <=2 Trimeth/Sulfa S <=0.5/9.5 S <=0.5/9.5 Pip/Tazo S <=8 S <=8 S = SENSITIVE I = INTERMEDIATE R = RESISTANT
--- NOTE | 2024-11-25 11:33 | Hospitalist Progress Note ---
Date of Service November 25, 2024 Assessment & Plan (1) Closed left hip fracture: Plan: 74-year-old female from [place] visiting [place] with past medical history significant for hypertension, CHF who is status post fall with left hip fracture, s/p ORIF on 11/07/24 with postop anemia and hypotension requiring transfer to the ICU. Closed left hip fracture Secondary to mechanical fall --S/P open reduction internal fixation left hip by Dr. Fitch on 11/07/2024 Left hip hematoma S/P ORIF, Non healing wound S/P incision and drainage left hip by Dr. Fitch on 11/23/2024 Postoperative acute blood loss anemia -- Wound culture:E coli, K oxytoca, R ornithinolytica -- Appreciate orthopedics, ID input Weightbearing as tolerated left lower extremity PT OT, fall precautions Pain control as needed Continue wound VAC--plan to change dressing, removal of wound VAC on 11/25/2024 Continue IV Rocephin while hospitalized. Plan to transition to cefpodoxime 400mg PO bid to complete a 2 week duration--last dated 12/07/2024 Monitor CBC INR therapeutic, On Coumadin for anticoagulation Needs rehab placement Hypotension Hypotensive Shock Pt with postop hypotensive shock requiring transfer to the ICU Required vasopressor support x2 Was on midodrine 10mg TID, hydrocortisone and florinef for adrenal support Home antihypertensives on hold Appreciate critical care, cardiology input Continue metoprolol, midodrine Monitor blood pressure Acute Blood Loss Anemia post op, requiring 3U pRBCs CT abd/pelvis noting large hematoma Hemoglobin stable 9.7 today Monitor CBC Acute depression Feels very depressed and wanted to have some help Appreciate psychiatrist input and recommendation Plan to start duloxetine 20 mg daily after about 4 weeks to decrease the risk of bleeding She is agreeable to start duloxetine 20 mg daily after about 4 weeks (2) Chronic heart failure with preserved ejection fraction: Plan: Acute on Chronic heart failure with preserved EF Hypoxia--resolved IV Lasix discontinued Appreciate Cardiology input Continue torsemide 20 mg daily, metoprolol succinate 50 mg every morning, 25 mg every afternoon Monitor volume status closely Significant valvular heart disease Has moderate aortic stenosis, severe mitral valve stenosis and moderate mitral regurgitation Severe pulmonary hypertension l Echo with EF 65-70%, mod LVH, LA severely dilated, mild to mod , mild MS, s evere MR Will need to have follow-up appointments with Cardiac/Thoracic surgeon as an outpatient (3) Atrial fibrillation with controlled ventricular response: Plan: Atrial Fibrillation with RVR Has significant valvular heart disease with atrial fibrillation and increased ventricular rate Was on IV amiodarone, then transitioned to oral amiodarone before being discontinued. Continue metoprolol succinate, digoxin, Coumadin INR 2.0 today Monitor Hypocalcemia Hypokalemia Replete electrolytes Monitor (4) Severe pulmonary hypertension: (5) Severe mitral valve stenosis: (6) Moderate mitral regurgitation: Plan Leukocytosis Likely in setting of steroid use Resolved DVT Px: Coumadin CODE STATUS Full code Disposition Needs rehab placement Admission and Anticipated Discharge Date Admission Date: November 06, 2024 Subjective Patient is seen and examined at bedside Left hip pain at surgical site is well-controlled Reports transient dizziness this morning which improved Denies any chest pain, dyspnea, nausea, vomiting, abdominal pain Review of Systems Review of Systems: All systems reviewed & are unremarkable except as noted in Subjective Physical Exam Physical Exam: Physical Exam: Vitals signs as noted above General Appearance:Moderately built and nourished, no apparent distress Head: normocephalic, Atraumatic Eyes: normal inspection, EOMI Neck: supple, Trachea midline Respiratory/Chest: Decreased breath sounds, CTA, No accessory muscle use Cardiovascular: Irregularly irregular,+ murmur Abdomen/GI:Soft, Non tender, Bowel sounds present Extremities/Musculoskeletal:normal inspection, 1+edema, left hip wound VAC, venous stasis changes Neurologic/Psych:AAOX3, grossly no focal neurological deficits Skin: normal color, warm Results & Data Results & Data Vital Signs (Past 12 Hours) Vital Signs Temp Pulse Pulse Resp BP Pulse Ox O2 Del Method 11/25/24 07:56 36.6 C 84 18 83/54 L 95 Room Air 11/25/24 05:46 83 11/25/24 03:32 36.6 C 78 20 98/61 L 98 Room Air 11/24/24 23:54 36.4 C L 84 20 84/53 L 93 Room Air Laboratory Results Short CBC 11/25/24 Range/Units 08:24 WBC 6.80 (4.8-10.8) K/ul Hgb 9.7 L (12.0-16.0) g/dl Hct 31.2 L (37.0-47.0) % Plt Count 155 (130-400) K/uL BMP 11/25/24 08:24 Sodium 132 L Potassium 3.9 Chloride 99 Carbon Dioxide 25 BUN 33 H Creatinine 1.10 Glucose 92 Calcium 8.3 L
[2024-11-26 05:10] LABS: Hematocrit (blood only) 30.2 % (37.0-47.0); Hemoglobin 9.4 g/dl (12.0-16.0); Mean Corpuscular Hemoglobin 32.1 pg (25.0-34.0); Mean Corpuscular Hgb Conc 31.1 g/dL (32.0-36.0); Mean Corpuscular Volume 103.1 fL (80.0-100.0); Mean Platelet Volume 10.4 fL (9.4-12.4); Platelet Count 158 K/uL (130-400); RDW Coefficient of Variation 26.5 % (11.5-14.5); RDW Standard Deviation 93.3 fL (36.4-46.3); Red Blood Count 2.93 M/uL (4.20-5.40); White Blood Count 6.07 K/ul (4.8-10.8)
[2024-11-26 05:25] LABS: BUN Creatinine Ratio 32.3 (10-20); C Reactive Protein 9.63 mg/dl (0-0.5); Creatinine Clr Calc Pharmacy 62.5 ml/min; Magnesium 1.7 mg/dl (1.7-2.4); Potassium 3.7 mmol/L (3.5-5.1)
[2024-11-26 05:31] LABS: Troponin I High Sensitivity 19.4 pg/ml (0-14)
[2024-11-26 05:43] LABS: INR 2.1 (0.9-1.1); Prothrombin Time 21.7 Seconds (9.0-12.0)
[2024-11-26 06:01] LABS: Folate (Folic Acid),Ser orPlas 11.43 ng/ml (>5.38)
[2024-11-26] MEDS: MAGNESIUM SULFATE / D5W 1 GM/100 ML BAG IV SCH (09:29)
--- NOTE | 2024-11-26 10:25 | XRay Report ---
XR chest 1V portable CLINICAL HISTORY: shortness of breath COMPARISON STUDY: 11/16/2024 FINDINGS: There is stable prominent cardiomegaly with pulmonary vascular congestion. Stable diffuse p ulmonary interstitial prominence. Stable hazy opacity in the lung bases with obscuration of the diaph ragm and blunting of the costophrenic angles. IMPRESSION: Stable CHF with small bilateral pleural effusions and associated lung base consolidation . ACT 112: Negative or not required by law. Electronically signed by: Chan Limon M.D. 11/26/2024 10:24 AM
--- NOTE | 2024-11-26 10:32 | Orthopedic Progress Note ---
Date of Service November 26, 2024 Assessment & Plan (1) Closed left hip fracture: Plan: IMPRESSION: POD #3 s/p I&D Left hip, with E. Coli & Klebsiella infection, 2 weeks s/p ORIF L hip fracture PLAN: Acute anemia blood loss, stable Hgb 9.7. Currently on Rocephin 2g IV q24hrs ID recommends, continue IV Rocephin 2g IV q24h, then switch to when stable to cefpodoxime 400mg PO bid (ID recommended 4 weeks due to the closeness of the orthopedic hardware.) Sensitivities noted Will obtain ESR & CRP with next blood draw, follow weekly PT/OT WBAT LLE OOB to chair Continue pain control Dressing C/D/I and reinforced today Continue care per primary service F/u at [facility] in 2 weeks Admission and Anticipated Discharge Date Admission Date: November 06, 2024 Subjective This 74-year-old female seen today for follow-up of left hip irrigation debridement following trochanteric nailing for hip fracture. Patient states she is doing fairly well today. She continues to have shortness of breath that she attributes to her congestive heart failure. She states she also has some pain in her leg but it is effectively controlled with p.o. pain medication. She is currently on IV antibiotics due to her cultures from her hip growing E. coli and Klebsiella. Currently she denies chest pain, fever, chills, sweats, nausea, vomiting, diarrhea or numbness or tingling in her left lower extremity. Review of Systems Review of Systems: All systems reviewed & are unremarkable except as noted in Subjective Physical Exam Physical Exam: Left lower extremity: Dressing was taken down so that incision sites and drain sites were visible. There is no active drainage. Dressing was reapplied and reinforced with Medipore tape. Patient does have some tenderness circumferentially around the dressing. She is able to perform active straight leg raise test. She is able to actively dorsi and plantarflex her foot. Patient is able to detect light sensation to touch over the pads of all digits. Her peripheral pulses are 2+. She is neurovascularly intact in the left lower extremity. Results & Data Vital Signs (Past 12 Hours) Vital Signs Temp Pulse Resp BP Pulse Ox O2 Del Method 11/26/24 07:34 36.7 C 97 H 20 102/70 91 Room Air 11/26/24 04:06 36.4 C L 88 20 93/66 L 92 Room Air 11/25/24 23:52 37.1 C 93 H 20 106/74 93 Room Air Diagnostic Findings Laboratory Results WBC 6.07 K/ul (4.8-10.8) 11/26/24 04:43 RBC 2.93 M/uL (4.20-5.40) L 11/26/24 04:43 Hgb 9.4 g/dl (12.0-16.0) L 11/26/24 04:43 POC Hgb 7.1 g/dl (12.0-16.0) L 11/08/24 04:19 Hct 30.2 % (37.0-47.0) L 11/26/24 04:43 POC Hct 21 % (37-47) L 11/08/24 04:19 MCV 103.1 fL (80.0-100.0) H 11/26/24 04:43 MCH 32.1 pg (25.0-34.0) 11/26/24 04:43 MCHC 31.1 g/dL (32.0-36.0) L 11/26/24 04:43 RDW Std Deviation 93.3 fL (36.4-46.3) H 11/26/24 04:43 RDW Coeff of Gifty 26.5 % (11.5-14.5) H 11/26/24 04:43 Plt Count 158 K/uL (130-400) 11/26/24 04:43 MPV 10.4 fL (9.4-12.4) 11/26/24 04:43 Immature Gran % (Auto) 1.0 % 11/25/24 08:24 Neut % (Auto) 79.5 % 11/25/24 08:24 Lymph % (Auto) 9.7 % 11/25/24 08:24 [place] % (Auto) 9.4 % 11/25/24 08:24 Eos % (Auto) 0.1 % 11/25/24 08:24 Baso % (Auto) 0.3 % 11/25/24 08:24 Neut # (Auto) 5.40 K/uL (1.40-6.50) 11/25/24 08:24 Lymph # (Auto) 0.66 K/uL (1.20-3.40) L 11/25/24 08:24 [place] # (Auto) 0.64 K/uL (0.11-0.59) H 11/25/24 08:24 Eos # (Auto) 0.01 K/uL (0.00-0.50) 11/25/24 08:24 Baso # (Auto) 0.02 K/uL (0.00-0.20) 11/25/24 08:24 Immature Gran # (Auto) 0.07 K/uL (0.01-0.20) 11/25/24 08:24 Absolute Nucleated RBC 0.02 K/uL (0.00-0.12) 11/25/24 08:24 Nucleated RBC % (auto) 0.3 % 11/25/24 08:24 Neutrophils % (Manual) 73 % 11/17/24 06:24 Lymphocytes % (Manual) 15 % 11/17/24 06:24 Monocytes % (Manual) 3 % 11/17/24 06:24 Eosinophils % (Manual) 1 % 11/17/24 06:24 Basophils % (Manual) 1 % 11/14/24 04:38 Metamyelocytes % (Man) 5 % 11/17/24 06:24 Myelocytes % (Man) 3 % 11/17/24 06:24 Promyelocytes % (Man) 1 % 11/14/24 04:38 Blast Cells % (Manual) 1 % 11/16/24 05:52 Neutrophils # (Manual) 10.71 K/uL (1.40-6.50) H 11/17/24 06:24 Total Absolute Neuts 10.71 K/uL (1.4-6.5) H 11/17/24 06:24 Lymphocytes # (Manual) 2.20 K/uL (1.2-3.4) 11/17/24 06:24 Total Abs Lymphocytes 2.20 K/uL (1.2-3.4) 11/17/24 06:24 Monocytes # (Manual) 0.44 K/uL (0.11-0.59) 11/17/24 06:24 Eosinophils # (Manual) 0.15 K/uL (0-0.50) 11/17/24 06:24 Basophils # (Manual) 0.15 K/uL (0-0.2) 11/14/24 04:38 Metamyelocytes # (Man) 0.73 K/uL (0-0) H 11/17/24 06:24 Myelocytes # (Manual) 0.44 K/uL (0-0) H 11/17/24 06:24 Promyelocytes # (Man) 0.15 K/uL (0-0) H 11/14/24 04:38 Blast Cells # (Man) 0.18 K/uL (0-0) H 11/16/24 05:52 Platelet Estimate Decreased (Normal) L 11/09/24 04:09 RBC Morphology Unremarkable 11/08/24 04:27 Polychromasia 2+ 11/25/24 08:24 Basophilic Stippling 1+ 11/13/24 04:46 Anisocytosis Present 11/25/24 08:24 Tear Drop Cells 1+ 11/24/24 06:34 Ovalocytes 1+ 11/24/24 06:34 ESR 34 mm/hr (0-30) H 11/26/24 04:43 PT 21.7 Seconds (9.0-12.0) H 11/26/24 04:43 INR 2.1 (0.9-1.1) H 11/26/24 04:43 APTT 28 Seconds (21-31) 11/07/24 18:42 PTT Ratio 1.0 11/07/24 18:42 Heparin Anti-Xa, Unfract < 0.10 IU/ml (0.3-0.7) L 11/21/24 05:27 Specimen Type Arterial 11/08/24 04:19 Sample Site Art Line 11/08/24 04:19 POC pH 7.36 (7.35-7.45) 11/08/24 04:19 POC pCO2 38 mmHg (35-46) 11/08/24 04:19 POC pO2 21 mmHg (80-95) L 11/08/24 04:19 POC HCO3 22 john/L (19-24) 11/08/24 04:19 POC Total CO2 23 mmol/L (24-31) L 11/08/24 04:19 POC Base Excess -4.0 john/L (-9-1.8) 11/08/24 04:19 O2 Sat Pulse Oximetry 100 11/08/24 04:19 ABG pH (Temp Correct) 7.364 (7.35-7.45) 11/08/24 04:19 ABG pCO2 (Temp Corrct 38 mmHg (35-46) 11/08/24 04:19 POC ABG pO2 at Pt Temp 20 11/08/24 04:19 POC ABG O2 Sat 33.0 % (90-95) L 11/08/24 04:19 Moe Test NA 11/08/24 04:19 O2 Delivery Device Cannula 11/08/24 04:19 POC Sodium 138 mmol/L (135-144) 11/08/24 04:19 Sodium 132 mmol/L (136-145) L 11/26/24 04:43 POC Potassium 3.7 mmol/L (3.3-5.0) 11/08/24 04:19 Potassium 3.7 mmol/L (3.5-5.1) 11/26/24 04:43 Chloride 98 mmol/L (98-107) 11/26/24 04:43 Carbon Dioxide 27 mmol/L (21-32) 11/26/24 04:43 Anion Gap 7 (3-11) 11/26/24 04:43 BUN 32 mg/dl (6-23) H 11/26/24 04:43 Creatinine 0.99 mg/dl (0.6-1.2) 11/26/24 04:43 Est Cr Clr Drug Dosing 62.5 ml/min 11/26/24 04:43 eGFR 59.83 11/26/24 04:43 BUN/Creatinine Ratio 32.3 (10-20) H 11/26/24 04:43 Glucose 105 mg/dl (70-99(Fasting)) H 11/26/24 04:43 Estimat Average Glucose 100 mg/dl 11/07/24 05:44 Hemoglobin A1c 5.1 % (4.5-5.6) 11/07/24 05:44 Lactate 1.4 mmol/L (0.4-2.0) 11/08/24 04:27 Calcium 8.0 mg/dl (8.6-10.3) L 11/26/24 04:43 Ionized Calcium 1.14 mmol/L (1.12-1.32) 11/11/24 03:59 Phosphorus 3.3 mg/dl (2.5-4.9) 11/19/24 05:24 Magnesium 1.7 mg/dl (1.7-2.4) 11/26/24 04:43 Iron 46 mcg/dl (35-150) 11/26/24 04:43 TIBC 307 mcg/dl (250-450) 11/26/24 04:43 Transferrin 219 mg/dl (200-360) 11/26/24 04:43 Transferrin % Sat 15 % (15-50) 11/26/24 04:43 Total Bilirubin 2.5 mg/dl (0.2-1.0) H 11/19/24 05:24 AST 39 U/L (13-39) 11/19/24 05:24 ALT 35 U/L (7-52) 11/19/24 05:24 Alkaline Phosphatase 56 U/L (34-104) 11/19/24 05:24 Total Creatine Kinase 27 U/L (26-192) 11/07/24 05:44 Troponin I High Sens 19.3 pg/ml (0-14) H 11/26/24 07:48 C-Reactive Protein 9.63 mg/dl (0-0.5) H 11/26/24 04:43 B-Natriuretic Peptide 471 pg/ml (0-100) H 11/08/24 08:37 Total Protein 5.9 gm/dl (6.0-8.3) L 11/19/24 05:24 Albumin 3.2 gm/dl (3.4-5.0) L 11/19/24 05:24 Globulin 2.7 gm/dl (2.5-4.0) 11/19/24 05:24 Albumin/Globulin Ratio 1.2 (0.9-2) 11/19/24 05:24 Prealbumin 10.1 mg/dl (20-40) L 11/24/24 06:34 Vitamin B12 737 pg/ml (180-914) 11/26/24 04:43 25-OH Vitamin D Total 51.9 ng/ml (30-100) 11/24/24 06:34 Folate 11.43 ng/ml (>5.38) 11/26/24 04:43 Random Cortisol 23.54 mcg/dl 11/07/24 17:02 Nasal Screen MRSA (PCR) Negative (Negative) 11/07/24 Unknown Hepatitis C Ab Screen Negative (Negative) 11/06/24 19:57 Blood Type A Positive 11/08/24 11:33 Blood Type Recheck A Positive 11/08/24 10:59 Antibody Screen NEGATIVE 11/08/24 11:33 Crossmatch See Detail 11/08/24 11:33 Impressions Hip/Pelvis X-Ray 11/06/24 20:00 Exam(s): XR HIP + PELVIS, 1 view EXAM: XR Left Hip With Pelvis When Performed, 2 or 3 Views CLINICAL HISTORY: Reason for exam: Hip fracture. TECHNIQUE: Two or three views of the left hip with pelvis when performed. COMPARISON: No relevant prior studies available. IMPRESSION: Limited views. There is an acute intertrochanteric fracture of the proximal left femur with mild displacement. Advanced degenerative arthropathy is noted at the left hip joint. 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 Fluoroscopy time: 4 minutes and 41 seconds. Number of fluoroscopic images: 6. Ka,r: 87.18 mGy. FINDINGS: Fluoroscopy was provided during open reduction and internal fixation of the intertrochanteric fracture of the left femur with trochanteric nail. Fracture alignment has improved. Distal screws are present. Linear radiodensities project over the operative bed are likely on the patient. Severe left hip osteoarthritis incidentally noted. IMPRESSION: Fluoroscopy provided during open reduction and internal fixation of the intertrochanteric fracture of the left femur. ACT 112: Negative or not required by law. Electronically signed by: Wilfredo Corbett M.D. 11/08/2024 12:[address] 11/08/24 11:21 EXAM: CT Pelvis With Intravenous Contrast INDICATION: Rule out bleed TECHNIQUE: Axial computed tomography images of the pelvis with intravenous contrast. Sagittal and coronal reformatted images were created and reviewed. This CT exam was performed using one or more of the following dose reduction techniques: automated exposure control, adjustment of the mA and/or kV according to patient size, and/or use of iterative reconstruction technique. CONTRAST: 94ml of Optiray 320 was administered intravenously. COMPARISON: No relevant prior studies available. FINDINGS: Bowel: No abnormality noted. No obstruction. No mucosal thickening. Appendix: No findings to suggest acute appendicitis. Intraperitoneal space: No free air. No significant fluid collection. Bladder: No filling defects to suggest mass or large stone. No inflammation. Reproductive: No significant abnormality noted. Bones/joints: There is an acute intertrochanteric fracture of the left femur with slight displacement. Long femoral nail with proximal and distal locking hardware well-seated and intact. Severe degenerative change of the left hip noted. Soft tissues: Large irregular subcutaneous hematoma extends from the level of the upper aspect of the left gluteal musculature to the lateral skin surface inferiorly tracking within and along the gluteal musculature predominantly in the subcutaneous fat terminating posterior level of the proximal femoral shaft. Moderate amounts of associated gas present. The skin surface is not completely included. There are areas of acute hemorrhage in the lateral aspect of the hematoma (see images series 6 [id number]. Most confluent area of hematoma measures maximal transverse diameter of 10 cm, AP diameter of 8.1 cm. Maximum length is roughly 17.4 cm. There is generalized subcutaneous contusion and gas. There is gas along the gluteal musculature. There is subcutaneous edema and scattered gas along the lateral aspect of the femur. Vasculature: No abnormality noted. No lower abdominal aortic aneurysm. Lymph nodes: No abnormality noted. No enlarged lymph nodes. IMPRESSION: 1. Large predominantly subcutaneous but partially gluteal hematoma with areas of active bleeding as above. There is generalized edema of the left lower extremity. 2. Internally fixed acute fracture of the intertrochanteric left femur. ACT 112: N/A Electronically signed by Ana Paula Stock 11-08-2024 13:[address] 11/08/24 11:21 EXAM: CT Pelvis With Intravenous Contrast INDICATION: Evaluate for bleeding TECHNIQUE: Axial computed tomography images of the pelvis with intravenous contrast. Sagittal and coronal reformatted images were created and reviewed. This CT exam was performed using one or more of the following dose reduction techniques: automated exposure control, adjustment of the mA and/or kV according to patient size, and/or use of iterative reconstruction technique. CONTRAST: 94ml of Optiray 320 was administered intravenously. COMPARISON: No relevant prior studies available. FINDINGS: Bones/joints: There is an acute nondisplaced fracture of the posterior aspect of the left inferior pubic ramus. There is an acute intertrochanteric fracture of the left femur with lateral displacement. Long femoral nail with proximal locking bolt well-seated and intact. Severe primary osteoarthritic change of the left hip noted. Soft tissues: There is diffuse subcutaneous contusion and hematoma beginning at the level of the upper gluteal musculature and partially involving the anterior gluteal muscular mass. Extensive subcutaneous gas noted. Areas of acute hemorrhage noted in the lateral aspect of the hematoma (series 4 images [id number] 20). Bladder: No filling defects to suggest mass or large stone. No inflammation. IMPRESSION: 1. Acute intertrochanteric fracture of the left femur with the visualized portion of the internal fixation hardware intact and well-seated. 2. Large predominantly subcutaneous hematoma from the upper left gluteal region to the proximal posterior left femur with areas of active bleeding as above. 3. There is an acute nondisplaced fracture of the posterior aspect of the left inferior pubic ramus. ACT 112: N/A Electronically signed by Ana Paula Stock 11-08-2024 2:02 PM Abdomen/Pelvis CT 11/08/24 11:26 EXAM: CT Abdomen and Pelvis With Intravenous Contrast INDICATION: Evaluate for bleeding TECHNIQUE: Axial computed tomography images of the abdomen and pelvis with intravenous contrast. Sagittal and coronal reformatted images were created and reviewed. This CT exam was performed using one or more of the following dose reduction techniques: automated exposure control, adjustment of the mA and/or kV according to patient size, and/or use of iterative reconstruction technique. CONTRAST: 93 ml of Optiray 320 was administered intravenously. COMPARISON: No relevant prior studies available. FINDINGS: Limitations: Portions of the right subcostal chest wall and upper abdominal wall not included. Lung bases and pleural space: Heart: Cardiomegaly. Small pericardial effusion noted. Dense mitral annular calcification is noted. Mediastinum: No abnormality noted. ABDOMEN: Liver: Normal size and contour. Hypodense typical of steatosis. No mass or ductal dilation. Gallbladder and bile ducts: Cholecystectomy. No ductal dilation or stone noted. Pancreas: Homogeneous enhancement. No mass, inflammation or ductal dilation. Spleen: No significant abnormality noted. Adrenals: Mild bilateral thickening. No measurable mass. Kidneys and ureters: There is a ill-defined hypodense area in the left renal midpole measuring approximately 2.7 x 1.4 x 0.9 cm. The right kidney appears normal. Stomach and bowel: No distension or mucosal thickening. No inflammation noted. PELVIS: Appendix: No findings to suggest acute appendicitis. Bladder: Gutierrez balloon inflated in the bladder which is collapsed and cannot be assessed. Reproductive: No abnormalities noted. ABDOMEN and PELVIS: Intraperitoneal space: No free air. No significant fluid collection. Bones/joints: Acute internally fixed left intertrochanteric femoral fracture noted. Degenerative changes present throughout the spine. There is moderate to severe degenerative change of the hips left greater than right. Soft tissues: There is a large hematoma and gas collection extending from the upper aspect of the left gluteal musculature tapering to the level of the proximal femur measuring maximal transverse dimension at the most confluent point of 11.9 cm in AP diameter of 7.3 cm. There is a small focus of acute hemorrhage in the lateral aspect of the hematoma at the level of the supra-acetabular iliac bone series 3 image 257/367. There is generalized surrounding subcutaneous contusion. Vasculature: Atherosclerotic calcification of the aorta and branches. No aneurysm. Lymph nodes: No pathologically enlarged lymph nodes. IMPRESSION: 1. Large subcutaneous hematoma extending from the upper left gluteal region to the proximal posterior left femur as above with small focus of acute hemorrhage in the lateral aspect of the hematoma. 2. Small bilateral pleural effusions and dependent atelectasis. 3. Ill-defined hypodensity left kidney could be a mass or a hyperdense cyst. Sonographic assessment is recommended when able. ACT 112: N/A Electronically signed by Ana Paula Stock 11-08-2024 13:54 PM Renal Ultrasound 11/14/24 08:50 RENAL ULTRASOUND HISTORY: f/u CT, left kidney lesion COMPARISON: CT 11/08/2024 FINDINGS: Limited study secondary to patient body habitus. Right kidney: 10.2 cm. No hydronephrosis. Normal corticomedullary differentiation and cortical thickness. Left kidney: 10.8 cm. Ill-defined hypoechoic lesion within the midpole left kidney demonstrates no definite color flow measuring 1.4 x 1.4 x 0.9 cm and appears to represent a complex septated cyst. No hydronephrosis. Normal corticomedullary differentiation and cortical thickness. Bladder: No bladder wall thickening. The bilateral ureteral jets are not identified. 1.3 cm splenule again noted. IMPRESSION: 1. Limited exam secondary to patient body habitus. 2. 1.4 cm lesion within the midpole left kidney favors a complex cyst, however is suboptimally evaluated. A precautionary MRI of the abdomen with and without IV contrast utilizing renal protocol recommended to further evaluate. 3. No hydronephrosis. ACT 112: Negative or not required by law. Electronically signed by: Vimal Altamirano M.D. 11/14/2024 11:05 AM Pelvis CTA 11/22/24 08:32 EXAM: CT Angiography Abdomen and Pelvis Without and With Intravenous Contrast INDICATION: Assess for active bleeding. TECHNIQUE: Axial computed tomographic angiography images of the abdomen and pelvis without and with intravenous contrast. Sagittal and coronal reformatted images were created and reviewed. This CT exam was performed using one or more of the following dose reduction techniques: automated exposure control, adjustment of the mA and/or kV according to patient size, and/or use of iterative reconstruction technique. MIP reconstructed images were created and reviewed. CONTRAST: 118ml of Optiray 320 was administered intravenously. COMPARISON: CT abdomen pelvis 11/08/2024 FINDINGS: VASCULATURE: Aorta: Atherosclerotic calcification of the aorta and branches. No aneurysm. Celiac trunk and mesenteric arteries: No acute change noted. No occlusion or significant stenosis. Renal arteries: No acute change noted. No occlusion or significant stenosis. Iliac arteries: No acute change noted. No occlusion or significant stenosis. Lung bases: See below. Pleural space: Increased small bilateral layering pleural effusions and bilateral lower lobe dependent atelectasis. Heart: Stable cardiomegaly. Dense mitral annular calcification. No pericardial effusion. ABDOMEN: Liver: No abnormality noted. No mass. Gallbladder and bile ducts: Cholecystectomy. No ductal dilation or stone noted. Pancreas: No abnormality noted. No ductal dilation. No mass. Spleen: No abnormality noted. No splenomegaly. Adrenals: No abnormality noted. No mass. Kidneys and ureters: Stable 2 mm nonobstructing left kidney stone. Right kidney appears normal. Stomach and bowel: No abnormality noted. No obstruction. No mucosal thickening. PELVIS: Appendix: No findings to suggest acute appendicitis. Bladder: There is a small amount of air in the urinary bladder. Previously seen Gutierrez catheter no longer present. No stones. Reproductive: No significant abnormality noted. ABDOMEN and PELVIS: Intraperitoneal space: There is a small amount of layering fluid in the presacral space. No abscess or free air. Bones/joints: Internally fixed intertrochanteric fracture of the left femur noted. Visualized portion of the hardware well-seated. There is severe arthritic change of the left hip. Mild degenerative changes right hip. There is accentuated lumbar lordosis and diffuse facet arthrosis and mild spondylosis. Soft tissues: There is irregular gas, subcutaneous hematoma and generalized contusional changes in the subcutaneous fat lateral to the left hip. No acute extravasation identified. The area in total a measures greatest transverse diameter of approximately 1 and 11 cm transverse by 16 cm long. 5 9 cm AP. There is increased conspicuity of subcutaneous contusion in the right lateral pannus. Lymph nodes: No abnormality noted. No enlarged lymph nodes. IMPRESSION: 1. Hematoma and generalized subcutaneous contusion lateral to the left hip as above. No active extravasation noted. 2. Increased small layering pleural effusions and bilateral lower lobe compressive atelectasis. ACT 112: N/A Electronically signed by Ana Paula Stock 11-22-2024 09:49 AM Chest X-Ray 11/26/24 09:56 XR chest 1V portable CLINICAL HISTORY: shortness of breath COMPARISON STUDY: 11/16/2024 FINDINGS: There is stable prominent cardiomegaly with pulmonary vascular congestion. Stable diffuse pulmonary interstitial prominence. Stable hazy opacity in the lung bases with obscuration of the diaphragm and blunting of the costophrenic angles. IMPRESSION: Stable CHF with small bilateral pleural effusions and associated lung base consolidation. ACT 112: Negative or not required by law. Electronically signed by: Chan Limon M.D. 11/26/2024 10:24 AM
[2024-11-26] MEDS ORDERED: METOPROLOL TARTRATE 1 MG/ML VIAL IV PRN (13:57)
--- NOTE | 2024-11-26 14:17 | Hospitalist Progress Note ---
Date of Service November 26, 2024 Assessment & Plan (1) Closed left hip fracture: Plan: 74-year-old female from [place] visiting [place] with past medical history significant for hypertension, CHF who is status post fall with left hip fracture, s/p ORIF on 11/07/24 with postop anemia and hypotension requiring transfer to the ICU. Closed left hip fracture Secondary to mechanical fall --S/P open reduction internal fixation left hip by Dr. Fitch on 11/07/2024 Left hip hematoma S/P ORIF, Non healing wound S/P incision and drainage left hip by Dr. Fitch on 11/23/2024 Postoperative acute blood loss anemia -- Wound culture:E coli, K oxytoca, R ornithinolytica -- Appreciate orthopedics, ID input Weightbearing as tolerated left lower extremity PT OT, fall precautions Pain control as needed Wound VAC--discontinued on 11/25/2024 Continue IV Rocephin for 2 weeks through 12/07/2024. Plan to transition to transition to cefpodoxime 400mg PO bid for additional 2 weeks (12/08/2024 to 12/21/2024) after completion of IV antibiotics. Needs weekly CBC with differential, CMP, ESR, CRP while on IV antibiotics Monitor CBC INR therapeutic, On Coumadin for anticoagulation Needs follow-up with orthopedics, infectious disease on discharge Hypotension Hypotensive Shock Pt with postop hypotensive shock requiring transfer to the ICU Required vasopressor support x2 Was on midodrine 10mg TID, hydrocortisone and florinef for adrenal support Home antihypertensives on hold Appreciate critical care, cardiology input Continue metoprolol, midodrine Blood pressure better today Acute Blood Loss Anemia post op, requiring 3U pRBCs CT abd/pelvis noting large hematoma Hemoglobin stable 9.4 today Monitor CBC Acute depression Feels very depressed and wanted to have some help Appreciate psychiatrist input and recommendation Plan to start duloxetine 20 mg daily after about 4 weeks to decrease the risk of bleeding She is agreeable to start duloxetine 20 mg daily after about 4 weeks (2) Chronic heart failure with preserved ejection fraction: Plan: Acute on Chronic heart failure with preserved EF Hypoxia--resolved IV Lasix discontinued Appreciate Cardiology input Continue torsemide 20 mg daily, metoprolol succinate 50 mg every morning, 25 mg every afternoon Monitor volume status closely Valvular heart disease --ECHO: Moderate concentric LVH, focal thickening of basal septum with cavity obliteration at mid ventricular level. Septal motion is consistent with conduction abnormality. EF 65 to 70%. Left atrium is severely dilated. Aortic valve leaflets are moderately calcified. Mild to moderate valvular aortic stenosis. Severe mitral annular calcification. Mitral valve leaflets appear mobile. Mild mitral stenosis. Severe mitral regurgitation. --Continue current medications Follow-up with cardiology on discharge (3) Atrial fibrillation with controlled ventricular response: Plan: Atrial Fibrillation with RVR Was on IV amiodarone, then transitioned to oral amiodarone before being discontinued. Continue metoprolol succinate, digoxin, Coumadin IV Lopressor as needed INR 2.1 today Monitor Hypocalcemia Hypokalemia Replete electrolytes Monitor (4) Moderate mitral regurgitation: Plan Leukocytosis Likely in setting of steroid use Resolved DVT Px: Coumadin CODE STATUS Full code Disposition Rehab when able Admission and Anticipated Discharge Date Admission Date: November 06, 2024 Subjective Patient is seen and examined at bedside Patient had an episode of NSVT overnight Patient denies any symptoms during the episode Left hip pain is well-controlled Discussed with patient's family at bedside States having some dyspnea on exertion No other complaints today Denies any chest pain, dyspnea, nausea, vomiting, abdominal pain Review of Systems Review of Systems: All systems reviewed & are unremarkable except as noted in Subjective Physical Exam Physical Exam: Physical Exam: Vitals signs as noted above General Appearance:Moderately built and nourished, no apparent distress Head: normocephalic, Atraumatic Eyes: normal inspection, EOMI Neck: supple, Trachea midline Respiratory/Chest: Decreased breath sounds, CTA, No accessory muscle use Cardiovascular: Irregularly irregular,+ murmur, tachycardia Abdomen/GI:Soft, Non tender, Bowel sounds present Extremities/Musculoskeletal:normal inspection, 1+edema, left hip wound VAC, thi ous stasis changes Neurologic/Psych:AAOX3, grossly no focal neurological deficits Skin: normal color, warm Results & Data Results & Data Vital Signs (Past 12 Hours) Vital Signs Temp Pulse Resp BP Pulse Ox O2 Del Method 11/26/24 11:22 36.5 C 119 H 20 115/79 95 Room Air 11/26/24 07:34 36.7 C 97 H 20 102/70 91 Room Air 11/26/24 04:06 36.4 C L 88 20 93/66 L 92 Room Air Laboratory Results Short CBC 11/26/24 Range/Units 04:43 WBC 6.07 (4.8-10.8) K/ul Hgb 9.4 L (12.0-16.0) g/dl Hct 30.2 L (37.0-47.0) % Plt Count 158 (130-400) K/uL [facility] 11/26/24 04:43 Sodium 132 L Potassium 3.7 Chloride 98 Carbon Dioxide 27 BUN 32 H Creatinine 0.99 Glucose 105 H Calcium 8.0 L
--- NOTE | 2024-11-26 15:09 | Infectious Disease Progress Nt ---
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 Found with left hip fracture and new onset Afib. TTE with mild-mod , trace AR, severe MS, moderate MR, mild TR, pulmonary HTN. S/p left hip ORIF on 11/07. Admitted to ICU postop and was placed on pressors and stress steroids. Course c/b blood loss anemia requiring transfusion (CT femur with gluteal hematoma with areas of acti ve bleeding). Pressors eventually weaned off. Noted to have drainage from surgical site on 11/15, seen by surgery, felt it was serous drainage and not infection, managed conservatively. She had a CT pelvis on 11/22 that showed a large hematoma lateral to the left hip, no active extravasation; increased pleural effusions with atelectasis. S/p OR 11/23 for evacuation of hematoma, underwent I+D (per op note, large amount of hematoma was removed, deep cultures were taken, wound was deep to the fascia). Per Dr. Fitch, no c/f joint involvement but hematoma was near site of hardware entrance and preference for longer course of 4 weeks of abx. OR cx polymicrobial. On CTX and ID consulted 11/24. She has been afebrile. WBC had been elevated up to 17, currently wnl. Cr wnl. Called back due to cultures growing Pseudomonas and Porphyromonas. She has a PCN allergy listed, stated an antibiotic given for dental issue caused itching. Couldnt recall taking amox/augmentin. Difficulty confirming, will avoid PCN, though may benefit from allergy testing. Given Pseudomonas will change CTX to cefepime. Add flagyl for anaerobic coverage given Porphyromonas. # Post surgical infection OR cx polymicrobial including anaerobe and PsA # Left hip hematoma s/p evacuation 11/23 # Left hip fracture s/p ORIF 11/07 # New onset afib off amio # PCN allergy itching - f/u culture sensitivities - Carey stopped CTX - started cefepime 2g IV q8h for Pseudomonas - started metronidazole 500mg PO bid for anaerobe - will need 4 weeks of abx, will use 2 weeks of IV with transition to 2 weeks PO - final regimen pending culture results - will benefit from outpatient allergy testing for PCN allergy - needs outpatient local ID follow up Will continue to follow. If questions or concerns, contact via mywaves or Infectious Disease Call Center . Edie Mallory MD [facility], Division of Infectious Diseases Admission and Anticipated Discharge Date Admission Date: November 06, 2024 Subjective This patient recommendation is based on a telemedicine consult request which was completed asynchronously through chart review and information provided by the primary physician. The patient was not seen or examined today. The evaluation is consultative in nature and all patient care and treatment decisions can either be accepted or rejected by the patient's primary hospital-based treating physician using their own independent medical judgment for their patient. Time Spent Reviewing Chart: 31+ minutes Cultures with PsA. Results & Data Vital Signs (Past 12 Hours) Vital Signs Temp Pulse Pulse Resp BP Pulse Ox O2 Del Method 11/26/24 14:47 36.4 C L 95 H 18 107/72 93 Room Air 11/26/24 11:22 36.5 C 119 H 20 115/79 95 Room Air 11/26/24 07:34 36.7 C 97 H 20 102/70 91 Room Air 11/26/24 07:16 97 H 11/26/24 04:06 36.4 C L 88 20 93/66 L 92 Room Air (2) Closed fracture of left hip Encounter type: initial encounter Qualified Code(s): S72.002A - Fracture of unspecified part of neck of left femur, initial encounter for closed fracture (3) Atrial fibrillation Atrial fibrillation type: unspecified Qualified Code(s): I48.91 - Unspecified atrial fibrillation
[2024-11-26] MEDS: CEFEPIME 2000MG 2,000 MG/20 ML SYR IV SCH (16:25)
[2024-11-26] MEDS: metroNIDAZOLE 500 MG TAB PO SCH (20:16)
[2024-11-27 06:12] LABS: Hemoglobin 9.6 g/dl (12.0-16.0)
[2024-11-27 06:27] LABS: BUN Creatinine Ratio 27.3 (10-20); Creatinine Clr Calc Pharmacy 69.9 ml/min; Potassium 3.8 mmol/L (3.5-5.1)
[2024-11-27 06:38] LABS: INR 2.2 (0.9-1.1); Prothrombin Time 22.7 Seconds (9.0-12.0)
--- NOTE | 2024-11-27 10:20 | Orthopedic Progress Note ---
Date of Service November 27, 2024 Assessment & Plan (1) Postoperative wound infection: Plan: The patient was educated regarding today's findings as well as her son. Conservative care measures were discussed. Her bandages were changed. No additional bloody purulent material was able to be expressed from anywhere else on the wound. The patient was encouraged to participate with physical therapy. I will make her n.p.o. until evaluated by Dr. Fitch in case she requires additional injection irrigation and debridement of the surgical wound. Care plan will be discussed with Dr. Fitch. Admission and Anticipated Discharge Date Admission Date: November 06, 2024 Supervising Physician Co-Signing Physician Notes I, Dr. Fitch, saw and examined the patient and agree with the above findings and plan of care. Overall she is doing and feeling better. LLE: Patient sitting in chair. NV intact. Distal incisions healing nicely, no evidence of infection. Proximal incision with old bloody drainage. calf soft and non-tender. IMPRESSION: POD #4 s/p I&D Left hip, with E. Coli, Klebsiella, Porphyromonas somerae, Pseudomonas aeruginosa infection, 2+ weeks s/p ORIF L hip fracture, doing better PLAN: Acute anemia blood loss, stable Hgb 9.6. Consult ID appreciated, continue IV Rocephin 2g IV q24h x 2 weeks, then switch to cefpodoxime 400mg PO bid for another 2 weeks due to the closeness of the orthopedic hardware. Check labs PT/OT WBAT LLE OOB to chair Continue pain control Change dressing to Wound Vac 11/29/24 Continue care per primary service May eat now. I will be out and Dr. Boateng will be covering me until I am back 12/02/24. If after changing Wound Vac 12/01 and concern for recurrent infection would make NPO after MN 12/01 for possible repeat I&D if continued drainage on 12/02 as an add-on and would hold Coumadin 12/01 + stat INR 12/02 am, likely need to reverse. Discussed with patient and her son who are in agreement with the plan. Subjective This 74-year-old female is seen today in her room. She is 4 days status post hematoma evacuation and subsequent Klebsiella/E. coli infection of her upper surgical wound. The patient states she feels fairly well today. She participated with PT yesterday and was able to get out of bed and sit in her bedside chair. She was also able to take a few steps with a walker. Her son is at the bedside currently. She denies any chest pain or shortness of breath. No nausea or vomiting. She denies any fevers or chills. No additional complaints. Physical Exam Physical Exam: General: Well-developed, well-nourished, obese elderly female, in no acute distress. Laying in bed. Alert and oriented. Conversive. In good spirits today. Skin: Warm and dry with good turgor. There are large bandages present on her left thigh. Upon removal, her incision looks fairly well. She has bloody drainage present gauze and ABD pads. Distally there is a small area that is discolored bloody drainage. This area is able to be milked of additional discolored bloody drainage. I suspect there is a small amount of purulent material mixed in with the blood. This is the only area at today draining. The surrounding blisters have dried. There is a very mild amount of discomfort with palpation over the wound. Musculoskeletal: The patient has intact motor function of her left leg. Neurologic: Gross sensation is intact across the left leg by soft touch. Peripheral pulses are 2+ for both DP and PT. Results & Data Vital Signs (Past 12 Hours) Vital Signs Temp Pulse Pulse Resp BP Pulse Ox O2 Del Method 11/27/24 07:55 36.5 C 90 16 96/56 L 95 Room Air 11/27/24 07:13 70 11/27/24 04:44 36.6 C 85 20 99/67 L 92 Room Air 11/27/24 00:01 36.4 C L 79 20 93/59 L 92 Room Air Laboratory Results H&H today is 9.6 and 31.0. INR is 2.2. Sodium is 133. Potassium 3.8. Chloride 100. CO2 27. BUN 24 with creatinine 0.88. Glucose 107.
--- NOTE | 2024-11-27 12:50 | Cardiology Progress Note ---
Date of Service November 27, 2024 Assessment & Plan (1) (HFpEF) heart failure with preserved ejection fraction: (2) Atrial fibrillation with controlled ventricular response: (3) Acute blood loss anemia: (4) Severe mitral insufficiency: (5) Aortic stenosis: Plan Patient slowly improving. Heart failure appears compensated with preserved ejection fraction but mixed valvular heart disease including severe mitral insufficiency moderate aortic and mild mitral stenosis. Atrial rhythms under better control with medications and pain control. Plan continue rate control with metoprolol and digoxin. Hold warfarin if further surgery is being entertained Admission and Anticipated Discharge Date Admission Date: November 06, 2024 Subjective Patient was seen and examined, chart and telemetry reviewed. No cardiac complaints gradually making progress with activities. Pain much better controlled. Blood pressures systolic 90-100. Heart rates controlled when taking beta- jose Possible plans for wound irrigation Review of Systems Review of Systems: All systems reviewed & are unremarkable except as noted in Subjective Physical Exam Constitutional: + obese; no acute distress Eyes: PERRL, conjunctivae normal, anicteric sclerae Neck: trachea midline, no thyromegaly Respiratory: normal respiratory effort, lungs clear to auscultation Cardiovascular: Rate/Rhythm: + irregularly irregular Heart Sounds: + murmur (Grade 3/6 holosystolic); no gallop Vessels: no JVD Extremities: + edema (Chronic stasis changes) Gastrointestinal (Abdomen): normal bowel sounds, soft, nontender, no hepatosplenomegaly Results & Data Vital Signs (Past 12 Hours) Vital Signs Temp Pulse Pulse Resp BP Pulse Ox O2 Del Method 11/27/24 12:17 89 20 98/54 L 94 Room Air 11/27/24 08:45 Room Air 11/27/24 07:55 36.5 C 90 16 96/56 L 95 Room Air 11/27/24 07:13 70 11/27/24 04:44 36.6 C 85 20 99/67 L 92 Room Air Laboratory Results Laboratory Results - last 24 hr 11/27/24 05:50 Hgb 9.6 L Hct 31.0 L PT 22.7 H INR 2.2 H Sodium 133 L Potassium 3.8 Chloride 100 Carbon Dioxide 27 Anion Gap 6 BUN 24 H Creatinine 0.88 Est Cr Clr Drug Dosing 69.9 eGFR 68.92 BUN/Creatinine Ratio 27.3 H Glucose 107 H Calcium 8.0 L Magnesium 2.0 (5) Aortic stenosis Cardiac valve disease etiology: etiology unspecified Qualified Code(s): I35.0 - Nonrheumatic aortic (valve) stenosis
--- NOTE | 2024-11-27 13:05 | Electrocardiogram Report ---
Test Reason : Blood Pressure : */* mmHG Vent. Rate : 88 BPM Atrial Rate : 174 BPM P-R Int : * ms QRS Dur : 118 ms QT Int : 380 ms P-R-T Axes : * -31 25 degrees QTcB Int : 459 ms Atrial fibrillation with premature ventricular or aberrantly conducted complexes Left axis deviation Anteroseptal infarct , age undetermined Abnormal ECG When compared with ECG of 09-Nov-2024 05:18, QRS axis Shifted right Anteroseptal infarct is now Present T wave inversion no longer evident in Lateral leads Confirmed by John Tellez ([id number]) on 11/27/2024 1:04:40 PM Referred By: REFERRED SELF Confirmed By: John Tellez
[2024-11-27] MEDS: MAGNESIUM CHLORIDE W/CALCIUM 64MG DELAYED REL TAB PO SCH (13:24)
--- NOTE | 2024-11-27 13:33 | Hospitalist Progress Note ---
Date of Service November 27, 2024 Assessment & Plan (1) Closed left hip fracture: Plan: 74-year-old female from [place] visiting [place] with past medical history significant for hypertension, CHF who is status post fall with left hip fracture, s/p ORIF on 11/07/24 with postop anemia and hypotension requiring transfer to the ICU. Closed left hip fracture Secondary to mechanical fall --S/P open reduction internal fixation left hip by Dr. Fitch on 11/07/2024 Left hip hematoma S/P ORIF, Non healing wound S/P incision and drainage left hip by Dr. Fitch on 11/23/2024 Postoperative acute blood loss anemia -- Wound culture:E coli, Klebsiella oxytoca, [place] ornithinolytica, Porphyromonas, Pseudomonas -- Appreciate orthopedics, ID input Weightbearing as tolerated left lower extremity PT OT, fall precautions Pain control as needed IV Rocephin transition to cefepime 2 g IV every 8 hours and added metronidazole 500 mg twice a day Final antibiotic course recommendations to be determined based on sensitivities Needs weekly CBC with differential, CMP, ESR, CRP while on IV antibiotics Monitor CBC INR therapeutic, On Coumadin for anticoagulation Needs follow-up with orthopedics, infectious disease on discharge Orthopedics following:Continue wound VAC per orthopedics Hypotension Hypotensive Shock Pt with postop hypotensive shock requiring transfer to the ICU Required vasopressor support x2 Was on midodrine 10mg TID, hydrocortisone and florinef for adrenal support Home antihypertensives on hold Appreciate critical care, cardiology input Continue metoprolol, midodrine Blood pressure stable Acute Blood Loss Anemia post op, requiring 3U pRBCs CT abd/pelvis noting large hematoma Hemoglobin stable 9.6 today Monitor CBC Acute depression Feels very depressed and wanted to have some help Appreciate psychiatrist input and recommendation Plan to start duloxetine 20 mg daily after about 4 weeks to decrease the risk of bleeding She is agreeable to start duloxetine 20 mg daily after about 4 weeks (2) Chronic heart failure with preserved ejection fraction: Plan: Acute on Chronic heart failure with preserved EF Hypoxia--resolved IV Lasix discontinued Appreciate Cardiology input Continue torsemide 20 mg daily, metoprolol succinate 50 mg every morning, 25 mg every afternoon Monitor volume status closely Valvular heart disease --ECHO: Moderate concentric LVH, focal thickening of basal septum with cavity obliteration at mid ventricular level. Septal motion is consistent with conduction abnormality. EF 65 to 70%. Left atrium is severely dilated. Aortic valve leaflets are moderately calcified. Mild to moderate valvular aortic stenosis. Severe mitral annular calcification. Mitral valve leaflets appear mobile. Mild mitral stenosis. Severe mitral regurgitation. --Continue current medications Follow-up with cardiology on discharge (3) Atrial fibrillation with controlled ventricular response: Plan: Atrial Fibrillation with RVR Was on IV amiodarone, then transitioned to oral amiodarone before being discontinued. Continue metoprolol succinate, digoxin, Coumadin IV Lopressor as needed INR 2.2 today Monitor Hypocalcemia Hypokalemia Replete electrolytes as needed Monitor (4) Moderate mitral regurgitation: Plan Leukocytosis Likely in setting of steroid use Resolved DVT Px: Coumadin CODE STATUS Full code Disposition Rehab when able Admission and Anticipated Discharge Date Admission Date: November 06, 2024 Subjective Patient is seen and examined at bedside Heart rates are better controlled Offers no new complaints today Denies any left hip wound pain Discussed with patient's family at bedside Had dressing changed today Denies any chest pain, dyspnea, nausea, vomiting, abdominal pain Review of Systems Review of Systems: All systems reviewed & are unremarkable except as noted in Subjective Physical Exam Physical Exam: Physical Exam: Vitals signs as noted above General Appearance:Moderately built and nourished, no apparent distress Head: normocephalic, Atraumatic Eyes: normal inspection, EOMI Neck: supple, Trachea midline Respiratory/Chest: Decreased breath sounds, CTA, No accessory muscle use Cardiovascular: Irregularly irregular,+ murmur, tachycardia Abdomen/GI:Soft, Non tender, Bowel sounds present Extremities/Musculoskeletal:normal inspection, 1+edema, left hip wound VAC, venous stasis changes Neurologic/Psych:AAOX3, grossly no focal neurological deficits Skin: normal color, warm Results & Data Results & Data Vital Signs (Past 12 Hours) Vital Signs Temp Pulse Pulse Resp BP Pulse Ox O2 Del Method 11/27/24 12:17 89 20 98/54 L 94 Room Air 11/27/24 08:45 Room Air 11/27/24 07:55 36.5 C 90 16 96/56 L 95 Room Air 11/27/24 07:13 70 11/27/24 04:44 36.6 C 85 20 99/67 L 92 Room Air Laboratory Results Short CBC 11/27/24 Range/Units 05:50 Hgb 9.6 L (12.0-16.0) g/dl Hct 31.0 L (37.0-47.0) % BMP 11/27/24 05:50 Sodium 133 L Potassium 3.8 Chloride 100 Carbon Dioxide 27 BUN 24 H Creatinine 0.88 Glucose 107 H Calcium 8.0 L
[2024-11-28 06:13] LABS: Hematocrit (blood only) 31.6 % (37.0-47.0); Mean Corpuscular Hemoglobin 32.3 pg (25.0-34.0); Mean Corpuscular Hgb Conc 31.6 g/dL (32.0-36.0); Mean Corpuscular Volume 101.9 fL (80.0-100.0); Mean Platelet Volume 10.3 fL (9.4-12.4); Nucleated RBC # (auto) 0.02 K/uL (0.00-0.12); Nucleated RBC % (auto) 0.5 %; Platelet Count 172 K/uL (130-400); RDW Coefficient of Variation 25.2 % (11.5-14.5); RDW Standard Deviation 90.2 fL (36.4-46.3)
[2024-11-28 06:41] LABS: BUN Creatinine Ratio 20.9 (10-20); Calcium 8.1 mg/dl (8.6-10.3); Potassium 3.7 mmol/L (3.5-5.1)
[2024-11-28 06:50] LABS: INR 2.5 (0.9-1.1); Prothrombin Time 25.4 Seconds (9.0-12.0)
--- NOTE | 2024-11-28 09:29 | Infectious Disease Progress Nt ---
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) with h/o HTN, CHF who presented on 11/06 with a mechanical fall and left hip pain. Found with left hip fracture and new onset Afib. TTE with mild-mod , trace AR, severe MS, moderate MR, mild TR, pulmonary HTN. S/p left hip ORIF on 11/07. Admitted to ICU postop and was placed on pressors and stress steroids. Course c/b blood loss anemia requiring transfusion (CT femur with gluteal hematoma with areas of acti ve bleeding). Pressors eventually weaned off. Noted to have drainage from surgical site on 11/15, seen by surgery, felt it was serous drainage and not infection, managed conservatively. She had a CT pelvis on 11/22 that showed a large hematoma lateral to the left hip, no active extravasation; increased pleural effusions with atelectasis. S/p OR 11/23 for evacuation of hematoma, underwent I+D (per op note, large amount of hematoma was removed, deep cultures were taken, wound was deep to the fascia). Per Dr. Fitch, no c/f joint involvement but hematoma was near site of hardware entrance and preference for longer course of 4 weeks of abx. OR polymicrobial. ID consulted 11/24. She has been afebrile. WBC had been elevated up to 17, currently improved. Cr wnl. Currently on cefepime/flagyl since OR cx growing multiple organisms including Pseudomonas and anaerobe. She has a PCN allergy which she says was due to an antibiotic given for dental issue that caused itching, but couldnt recall taking amox/augmentin. Abx: CTX 11/24->Cefepime 11/26-present. Treating for wound infection, possible superinfection of hematoma. Plan for [address] Fitch, there was no c/f joint involvement but hematoma was near site of hardware entrance and preference for longer course of 4 wks of abx. Given these concerns, plan to treat with 2 weeks of IV abx and then transition to PO for the remaining 2 weeks with ID f/u at transition point. Will use cefepime/flagyl for the first 2 weeks and transition to PO fluoroquinolone for the remainder (ie ciprofloxacin or levofloxacin may use levofloxacin as it has more gram positive coverage given addition of mixed skin sarah on cultures). Start date will be when she started tx for Pseudomonas, which was 11/26. QTc 459. # Post surgical infection OR cx polymicrobial including anaerobe and PsA # Left hip hematoma s/p evacuation 11/23 # Left hip fracture s/p ORIF 11/07 # New onset afib off amio # PCN allergy itching - continue cefepime 2g IV q8h and metronidazole 500mg PO bid for 2 weeks (start 11/26, end 12/09) - after completion of above, start levofloxacin 750mg PO daily (starting 12/10, end 12/23) - monitor weekly CBC w diff, CMP, ESR, CRP while on IV abx - please ensure she has local outpatient ID follow up - please note the following drug interactions ---warfarin and metronidazole flagyl may increase concentration of warfarin ---warfarin and levofloxacin quinolones may increase anticoagulant effect of warfarin Will discontinue active follow up at this time. Please do not hesitate to reconsult the Infectious Diseases service as needed. Edie Mallory MD [facility], Division of Infectious Diseases IDConnect: [phone] Admission and Anticipated Discharge Date Admission Date: November 06, 2024 Subjective This patient recommendation is based on a telemedicine consult request which was completed asynchronously through chart review and information provided by the primary physician. The patient was not seen or examined today. The evaluation is consultative in nature and all patient care and treatment decisions can either be accepted or rejected by the patient's primary hospital-based treating physician using their own independent medical judgment for their patient. Time Spent Reviewing Chart: 31+ minutes Afebrile, no leukocytosis Results & Data Vital Signs (Past 12 Hours) Vital Signs Temp Pulse Pulse Resp BP BP Pulse Ox 11/28/24 07:59 36.4 C L 76 16 90/58 L 96 11/28/24 05:30 76 11/28/24 03:27 36.3 C L 78 18 91/63 L 96 11/27/24 22:31 36.6 C 78 18 103/64 92 11/27/24 22:07 74 O2 Del Method 11/28/24 07:59 Room Air 11/28/24 05:30 11/28/24 03:27 Room Air 11/27/24 22:31 Room Air 11/27/24 22:07 Laboratory Results 11/07 MRSA screen: neg 11/23 Left hip cx: E coli (ortega-S), K oxytoca/Raoultella ornithinolytica (R-amp and cefazolin), Porphyromonas somerae, Pseudomonas aeruginosa (orteag-S), multiple counts of probable skin sarah (2) Closed fracture of left hip Encounter type: initial encounter Qualified Code(s): S72.002A - Fracture of unspecified part of neck of left femur, initial encounter for closed fracture (3) Atrial fibrillation Atrial fibrillation type: unspecified Qualified Code(s): I48.91 - Unspecified atrial fibrillation
--- NOTE | 2024-11-28 10:16 | Orthopedic Progress Note ---
Date of Service November 28, 2024 Assessment & Plan (1) Postoperative wound infection: Plan: POD #5 s/p I&D Left hip, with E. Coli, Klebsiella, Porphyromonas somerae, Pseudomonas aeruginosa infection, 2 weeks s/p ORIF L hip fracture PLAN: Acute anemia blood loss, stable Hgb 10. Change ABX from IV Rocephin to IV Cefepime and Flagyll. ID recommends when stable, switching to oral Cipro or Levaquin PO (ID recommended 4 weeks due to the closeness of the orthopedic hardware.) Sensitivities noted Will obtain ESR & CRP with next blood draw, follow weekly PT/OT WBAT LLE OOB to chair Continue pain control Wound VAC dressing placed by wound care nurse this morning Continue care per primary service Dr. Fitch is out and Dr. Boateng will be covering until he is back 12/02/24. If after changing Wound Vac 12/01 and concern for recurrent infection would make NPO after MN for possible repeat I&D, if continued drainage on 12/01 and concern for infection consider placing as an add-on for 12/02 and would make NPO, hold Coumadin 12/01, + stat INR 12/02 am, likely need to reverse. Admission and Anticipated Discharge Date Admission Date: November 06, 2024 Subjective This 74-year-old female seen today for follow-up of left hip irrigation debridement following trochanteric nailing for hip fracture. Patient states she is doing fairly well today. She continues to have shortness of breath that she attributes to her congestive heart failure. She states she also has some pain in her leg but it is effectively controlled with p.o. pain medication. She is currently on IV antibiotics due to her cultures from her hip growing E. coli and Klebsiella. Currently she denies chest pain, fever, chills, sweats, nausea, vomiting, diarrhea or numbness or tingling in her left lower extremity. Review of Systems Review of Systems: All systems reviewed & are unremarkable except as noted in Subjective Physical Exam Physical Exam: Left lower extremity: Dressing was taken down so that incision sites and drain sites were visible. There is active drainage of the thick bloody/purulent fluid from the distal most aspect of the posterior incision site. 4 x 4 and ABD were saturated. There is no drainage from the anteriormost drain sites. Patient has some minimal tenderness to palpation circumferentially around the sites. Dressing was not changed because the wound care nurse was in the room to apply the patient's wound VAC. She Has difficulty performing active straight leg raise test. She is able to actively dorsi and plantarflex her foot. Patient is able to detect light sensation to touch over the pads of all digits. Her peripheral pulses are 2+. She is neurovascularly intact in the left lower extremity. Results & Data Vital Signs (Past 12 Hours) Vital Signs Temp Pulse Pulse Resp BP BP Pulse Ox 11/28/24 07:59 36.4 C L 76 16 90/58 L 96 11/28/24 05:30 76 11/28/24 03:27 36.3 C L 78 18 91/63 L 96 11/27/24 22:31 36.6 C 78 18 103/64 92 O2 Del Method 11/28/24 07:59 Room Air 11/28/24 05:30 11/28/24 03:27 Room Air 11/27/24 22:31 Room Air Diagnostic Findings Laboratory Results WBC 4.40 K/ul (4.8-10.8) L 11/28/24 05:51 RBC 3.10 M/uL (4.20-5.40) L 11/28/24 05:51 Hgb 10.0 g/dl (12.0-16.0) L 11/28/24 05:51 POC Hgb 7.1 g/dl (12.0-16.0) L 11/08/24 04:19 Hct 31.6 % (37.0-47.0) L 11/28/24 05:51 POC Hct 21 % (37-47) L 11/08/24 04:19 MCV 101.9 fL (80.0-100.0) H 11/28/24 05:51 MCH 32.3 pg (25.0-34.0) 11/28/24 05:51 MCHC 31.6 g/dL (32.0-36.0) L 11/28/24 05:51 RDW Std Deviation 90.2 fL (36.4-46.3) H 11/28/24 05:51 RDW Coeff of Gifty 25.2 % (11.5-14.5) H 11/28/24 05:51 Plt Count 172 K/uL (130-400) 11/28/24 05:51 MPV 10.3 fL (9.4-12.4) 11/28/24 05:51 Immature Gran % (Auto) 1.0 % 11/25/24 08:24 Neut % (Auto) 79.5 % 11/25/24 08:24 Lymph % (Auto) 9.7 % 11/25/24 08:24 Shannon % (Auto) 9.4 % 11/25/24 08:24 Eos % (Auto) 0.1 % 11/25/24 08:24 Baso % (Auto) 0.3 % 11/25/24 08:24 Neut # (Auto) 5.40 K/uL (1.40-6.50) 11/25/24 08:24 Lymph # (Auto) 0.66 K/uL (1.20-3.40) L 11/25/24 08:24 Shannon # (Auto) 0.64 K/uL (0.11-0.59) H 11/25/24 08:24 Eos # (Auto) 0.01 K/uL (0.00-0.50) 11/25/24 08:24 Baso # (Auto) 0.02 K/uL (0.00-0.20) 11/25/24 08:24 Immature Gran # (Auto) 0.07 K/uL (0.01-0.20) 11/25/24 08:24 Absolute Nucleated RBC 0.02 K/uL (0.00-0.12) 11/28/24 05:51 Nucleated RBC % (auto) 0.5 % 11/28/24 05:51 Neutrophils % (Manual) 73 % 11/17/24 06:24 Lymphocytes % (Manual) 15 % 11/17/24 06:24 Monocytes % (Manual) 3 % 11/17/24 06:24 Eosinophils % (Manual) 1 % 11/17/24 06:24 Basophils % (Manual) 1 % 11/14/24 04:38 Metamyelocytes % (Man) 5 % 11/17/24 06:24 Myelocytes % (Man) 3 % 11/17/24 06:24 Promyelocytes % (Man) 1 % 11/14/24 04:38 Blast Cells % (Manual) 1 % 11/16/24 05:52 Neutrophils # (Manual) 10.71 K/uL (1.40-6.50) H 11/17/24 06:24 Total Absolute Neuts 10.71 K/uL (1.4-6.5) H 11/17/24 06:24 Lymphocytes # (Manual) 2.20 K/uL (1.2-3.4) 11/17/24 06:24 Total Abs Lymphocytes 2.20 K/uL (1.2-3.4) 11/17/24 06:24 Monocytes # (Manual) 0.44 K/uL (0.11-0.59) 11/17/24 06:24 Eosinophils # (Manual) 0.15 K/uL (0-0.50) 11/17/24 06:24 Basophils # (Manual) 0.15 K/uL (0-0.2) 11/14/24 04:38 Metamyelocytes # (Man) 0.73 K/uL (0-0) H 11/17/24 06:24 Myelocytes # (Manual) 0.44 K/uL (0-0) H 11/17/24 06:24 Promyelocytes # (Man) 0.15 K/uL (0-0) H 11/14/24 04:38 Blast Cells # (Man) 0.18 K/uL (0-0) H 11/16/24 05:52 Platelet Estimate Decreased (Normal) L 11/09/24 04:09 RBC Morphology Unremarkable 11/08/24 04:27 Polychromasia 2+ 11/25/24 08:24 Basophilic Stippling 1+ 11/13/24 04:46 Anisocytosis Present 11/25/24 08:24 Tear Drop Cells 1+ 11/24/24 06:34 Ovalocytes 1+ 11/24/24 06:34 ESR 34 mm/hr (0-30) H 11/26/24 04:43 PT 25.4 Seconds (9.0-12.0) H 11/28/24 05:51 INR 2.5 (0.9-1.1) H 11/28/24 05:51 APTT 28 Seconds (21-31) 11/07/24 18:42 PTT Ratio 1.0 11/07/24 18:42 Heparin Anti-Xa, Unfract < 0.10 IU/ml (0.3-0.7) L 11/21/24 05:27 Specimen Type Arterial 11/08/24 04:19 Sample Site Art Line 11/08/24 04:19 POC pH 7.36 (7.35-7.45) 11/08/24 04:19 POC pCO2 38 mmHg (35-46) 11/08/24 04:19 POC pO2 21 mmHg (80-95) L 11/08/24 04:19 POC HCO3 22 john/L (19-24) 11/08/24 04:19 POC Total CO2 23 mmol/L (24-31) L 11/08/24 04:19 POC Base Excess -4.0 john/L (-9-1.8) 11/08/24 04:19 O2 Sat Pulse Oximetry 100 11/08/24 04:19 ABG pH (Temp Correct) 7.364 (7.35-7.45) 11/08/24 04:19 ABG pCO2 (Temp Corrct 38 mmHg (35-46) 11/08/24 04:19 POC ABG pO2 at Pt Temp 20 11/08/24 04:19 POC ABG O2 Sat 33.0 % (90-95) L 11/08/24 04:19 Moe Test NA 11/08/24 04:19 O2 Delivery Device Cannula 11/08/24 04:19 POC Sodium 138 mmol/L (135-144) 11/08/24 04:19 Sodium 134 mmol/L (136-145) L 11/28/24 05:51 POC Potassium 3.7 mmol/L (3.3-5.0) 11/08/24 04:19 Potassium 3.7 mmol/L (3.5-5.1) 11/28/24 05:51 Chloride 100 mmol/L (98-107) 11/28/24 05:51 Carbon Dioxide 27 mmol/L (21-32) 11/28/24 05:51 Anion Gap 7 (3-11) 11/28/24 05:51 BUN 24 mg/dl (6-23) H 11/28/24 05:51 Creatinine 1.15 mg/dl (0.6-1.2) 11/28/24 05:51 Est Cr Clr Drug Dosing 53.0 ml/min 11/28/24 05:51 eGFR 49.99 11/28/24 05:51 BUN/Creatinine Ratio 20.9 (10-20) H 11/28/24 05:51 Glucose 105 mg/dl (70-99(Fasting)) H 11/28/24 05:51 Estimat Average Glucose 100 mg/dl 11/07/24 05:44 Hemoglobin A1c 5.1 % (4.5-5.6) 11/07/24 05:44 Lactate 1.4 mmol/L (0.4-2.0) 11/08/24 04:27 Calcium 8.1 mg/dl (8.6-10.3) L 11/28/24 05:51 Ionized Calcium 1.14 mmol/L (1.12-1.32) 11/11/24 03:59 Phosphorus 3.3 mg/dl (2.5-4.9) 11/19/24 05:24 Magnesium 2.0 mg/dl (1.7-2.4) 11/28/24 05:51 Iron 46 mcg/dl (35-150) 11/26/24 04:43 TIBC 307 mcg/dl (250-450) 11/26/24 04:43 Transferrin 219 mg/dl (200-360) 11/26/24 04:43 Transferrin % Sat 15 % (15-50) 11/26/24 04:43 Total Bilirubin 2.5 mg/dl (0.2-1.0) H 11/19/24 05:24 AST 39 U/L (13-39) 11/19/24 05:24 ALT 35 U/L (7-52) 11/19/24 05:24 Alkaline Phosphatase 56 U/L (34-104) 11/19/24 05:24 Total Creatine Kinase 27 U/L (26-192) 11/07/24 05:44 Troponin I High Sens 19.3 pg/ml (0-14) H 11/26/24 07:48 C-Reactive Protein 9.63 mg/dl (0-0.5) H 11/26/24 04:43 B-Natriuretic Peptide 471 pg/ml (0-100) H 11/08/24 08:37 Total Protein 5.9 gm/dl (6.0-8.3) L 11/19/24 05:24 Albumin 3.2 gm/dl (3.4-5.0) L 11/19/24 05:24 Globulin 2.7 gm/dl (2.5-4.0) 11/19/24 05:24 Albumin/Globulin Ratio 1.2 (0.9-2) 11/19/24 05:24 Prealbumin 10.1 mg/dl (20-40) L 11/24/24 06:34 Vitamin B12 737 pg/ml (180-914) 11/26/24 04:43 25-OH Vitamin D Total 51.9 ng/ml (30-100) 11/24/24 06:34 Folate 11.43 ng/ml (>5.38) 11/26/24 04:43 Random Cortisol 23.54 mcg/dl 11/07/24 17:02 Nasal Screen MRSA (PCR) Negative (Negative) 11/07/24 Unknown Hepatitis C Ab Screen Negative (Negative) 11/06/24 19:57 Blood Type A Positive 11/08/24 11:33 Blood Type Recheck A Positive 11/08/24 10:59 Antibody Screen NEGATIVE 11/08/24 11:33 Crossmatch See Detail 11/08/24 11:33 Impressions Hip/Pelvis X-Ray 11/06/24 20:00 Exam(s): XR HIP + PELVIS, 1 view EXAM: XR Left Hip With Pelvis When Performed, 2 or 3 Views CLINICAL HISTORY: Reason for exam: Hip fracture. TECHNIQUE: Two or three views of the left hip with pelvis when performed. COMPARISON: No relevant prior studies available. IMPRESSION: Limited views. There is an acute intertrochanteric fracture of the proximal left femur with mild displacement. Advanced degenerative arthropathy is noted at the left hip joint. 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 Fluoroscopy time: 4 minutes and 41 seconds. Number of fluoroscopic images: 6. Ka,r: 87.18 mGy. FINDINGS: Fluoroscopy was provided during open reduction and internal fixation of the intertrochanteric fracture of the left femur with trochanteric nail. Fracture alignment has improved. Distal screws are present. Linear radiodensities project over the operative bed are likely on the patient. Severe left hip osteoarthritis incidentally noted. IMPRESSION: Fluoroscopy provided during open reduction and internal fixation of the intertrochanteric fracture of the left femur. ACT 112: Negative or not required by law. Electronically signed by: Wilfredo Corbett M.D. 11/08/2024 12:[address] 11/08/24 11:21 EXAM: CT Pelvis With Intravenous Contrast INDICATION: Rule out bleed TECHNIQUE: Axial computed tomography images of the pelvis with intravenous contrast. Sagittal and coronal reformatted images were created and reviewed. This CT exam was performed using one or more of the following dose reduction techniques: automated exposure control, adjustment of the mA and/or kV according to patient size, and/or use of iterative reconstruction technique. CONTRAST: 94ml of Optiray 320 was administered intravenously. COMPARISON: No relevant prior studies available. FINDINGS: Bowel: No abnormality noted. No obstruction. No mucosal thickening. Appendix: No findings to suggest acute appendicitis. Intraperitoneal space: No free air. No significant fluid collection. Bladder: No filling defects to suggest mass or large stone. No inflammation. Reproductive: No significant abnormality noted. Bones/joints: There is an acute intertrochanteric fracture of the left femur with slight displacement. Long femoral nail with proximal and distal locking hardware well-seated and intact. Severe degenerative change of the left hip noted. Soft tissues: Large irregular subcutaneous hematoma extends from the level of the upper aspect of the left gluteal musculature to the lateral skin surface inferiorly tracking within and along the gluteal musculature predominantly in the subcutaneous fat terminating posterior level of the proximal femoral shaft. Moderate amounts of associated gas present. The skin surface is not completely included. There are areas of acute hemorrhage in the lateral aspect of the hematoma (see images series 6 [id number]. Most confluent area of hematoma measures maximal transverse diameter of 10 cm, AP diameter of 8.1 cm. Maximum length is roughly 17.4 cm. There is generalized subcutaneous contusion and gas. There is gas along the gluteal musculature. There is subcutaneous edema and scattered gas along the lateral aspect of the femur. Vasculature: No abnormality noted. No lower abdominal aortic aneurysm. Lymph nodes: No abnormality noted. No enlarged lymph nodes. IMPRESSION: 1. Large predominantly subcutaneous but partially gluteal hematoma with areas of active bleeding as above. There is generalized edema of the left lower extremity. 2. Internally fixed acute fracture of the intertrochanteric left femur. ACT 112: N/A Electronically signed by Ana Paula Stock 11-08-2024 13:[address] 11/08/24 11:21 EXAM: CT Pelvis With Intravenous Contrast INDICATION: Evaluate for bleeding TECHNIQUE: Axial computed tomography images of the pelvis with intravenous contrast. Sagittal and coronal reformatted images were created and reviewed. This CT exam was performed using one or more of the following dose reduction techniques: automated exposure control, adjustment of the mA and/or kV according to patient size, and/or use of iterative reconstruction technique. CONTRAST: 94ml of Optiray 320 was administered intravenously. COMPARISON: No relevant prior studies available. FINDINGS: Bones/joints: There is an acute nondisplaced fracture of the posterior aspect of the left inferior pubic ramus. There is an acute intertrochanteric fracture of the left femur with lateral displacement. Long femoral nail with proximal locking bolt well-seated and intact. Severe primary osteoarthritic change of the left hip noted. Soft tissues: There is diffuse subcutaneous contusion and hematoma beginning at the level of the upper gluteal musculature and partially involving the anterior gluteal muscular mass. Extensive subcutaneous gas noted. Areas of acute hemorrhage noted in the lateral aspect of the hematoma (series 4 images [id number] 20). Bladder: No filling defects to suggest mass or large stone. No inflammation. IMPRESSION: 1. Acute intertrochanteric fracture of the left femur with the visualized portion of the internal fixation hardware intact and well-seated. 2. Large predominantly subcutaneous hematoma from the upper left gluteal region to the proximal posterior left femur with areas of active bleeding as above. 3. There is an acute nondisplaced fracture of the posterior aspect of the left inferior pubic ramus. ACT 112: N/A Electronically signed by Ana Paula Stock 11-08-2024 2:02 PM Abdomen/Pelvis CT 11/08/24 11:26 EXAM: CT Abdomen and Pelvis With Intravenous Contrast INDICATION: Evaluate for bleeding TECHNIQUE: Axial computed tomography images of the abdomen and pelvis with intravenous contrast. Sagittal and coronal reformatted images were created and reviewed. This CT exam was performed using one or more of the following dose reduction techniques: automated exposure control, adjustment of the mA and/or kV according to patient size, and/or use of iterative reconstruction technique. CONTRAST: 93 ml of Optiray 320 was administered intravenously. COMPARISON: No relevant prior studies available. FINDINGS: Limitations: Portions of the right subcostal chest wall and upper abdominal wall not included. Lung bases and pleural space: Heart: Cardiomegaly. Small pericardial effusion noted. Dense mitral annular calcification is noted. Mediastinum: No abnormality noted. ABDOMEN: Liver: Normal size and contour. Hypodense typical of steatosis. No mass or ductal dilation. Gallbladder and bile ducts: Cholecystectomy. No ductal dilation or stone noted. Pancreas: Homogeneous enhancement. No mass, inflammation or ductal dilation. Spleen: No significant abnormality noted. Adrenals: Mild bilateral thickening. No measurable mass. Kidneys and ureters: There is a ill-defined hypodense area in the left renal midpole measuring approximately 2.7 x 1.4 x 0.9 cm. The right kidney appears normal. Stomach and bowel: No distension or mucosal thickening. No inflammation noted. PELVIS: Appendix: No findings to suggest acute appendicitis. Bladder: Gutierrez balloon inflated in the bladder which is collapsed and cannot be assessed. Reproductive: No abnormalities noted. ABDOMEN and PELVIS: Intraperitoneal space: No free air. No significant fluid collection. Bones/joints: Acute internally fixed left intertrochanteric femoral fracture noted. Degenerative changes present throughout the spine. There is moderate to severe degenerative change of the hips left greater than right. Soft tissues: There is a large hematoma and gas collection extending from the upper aspect of the left gluteal musculature tapering to the level of the proximal femur measuring maximal transverse dimension at the most confluent point of 11.9 cm in AP diameter of 7.3 cm. There is a small focus of acute hemorrhage in the lateral aspect of the hematoma at the level of the supra-acetabular iliac bone series 3 image 257/367. There is generalized surrounding subcutaneous contusion. Vasculature: Atherosclerotic calcification of the aorta and branches. No aneurysm. Lymph nodes: No pathologically enlarged lymph nodes. IMPRESSION: 1. Large subcutaneous hematoma extending from the upper left gluteal region to the proximal posterior left femur as above with small focus of acute hemorrhage in the lateral aspect of the hematoma. 2. Small bilateral pleural effusions and dependent atelectasis. 3. Ill-defined hypodensity left kidney could be a mass or a hyperdense cyst. Sonographic assessment is recommended when able. ACT 112: N/A Electronically signed by Ana Paula Stock 11-08-2024 13:54 PM Renal Ultrasound 11/14/24 08:50 RENAL ULTRASOUND HISTORY: f/u CT, left kidney lesion COMPARISON: CT 11/08/2024 FINDINGS: Limited study secondary to patient body habitus. Right kidney: 10.2 cm. No hydronephrosis. Normal corticomedullary differentiation and cortical thickness. Left kidney: 10.8 cm. Ill-defined hypoechoic lesion within the midpole left kidney demonstrates no definite color flow measuring 1.4 x 1.4 x 0.9 cm and appears to represent a complex septated cyst. No hydronephrosis. Normal corticomedullary differentiation and cortical thickness. Bladder: No bladder wall thickening. The bilateral ureteral jets are not identified. 1.3 cm splenule again noted. IMPRESSION: 1. Limited exam secondary to patient body habitus. 2. 1.4 cm lesion within the midpole left kidney favors a complex cyst, however is suboptimally evaluated. A precautionary MRI of the abdomen with and without IV contrast utilizing renal protocol recommended to further evaluate. 3. No hydronephrosis. ACT 112: Negative or not required by law. Electronically signed by: Vimal Altamirano M.D. 11/14/2024 11:05 AM Pelvis CTA 11/22/24 08:32 EXAM: CT Angiography Abdomen and Pelvis Without and With Intravenous Contrast INDICATION: Assess for active bleeding. TECHNIQUE: Axial computed tomographic angiography images of the abdomen and pelvis without and with intravenous contrast. Sagittal and coronal reformatted images were created and reviewed. This CT exam was performed using one or more of the following dose reduction techniques: automated exposure control, adjustment of the mA and/or kV according to patient size, and/or use of iterative reconstruction technique. MIP reconstructed images were created and reviewed. CONTRAST: 118ml of Optiray 320 was administered intravenously. COMPARISON: CT abdomen pelvis 11/08/2024 FINDINGS: VASCULATURE: Aorta: Atherosclerotic calcification of the aorta and branches. No aneurysm. Celiac trunk and mesenteric arteries: No acute change noted. No occlusion or significant stenosis. Renal arteries: No acute change noted. No occlusion or significant stenosis. Iliac arteries: No acute change noted. No occlusion or significant stenosis. Lung bases: See below. Pleural space: Increased small bilateral layering pleural effusions and bilateral lower lobe dependent atelectasis. Heart: Stable cardiomegaly. Dense mitral annular calcification. No pericardial effusion. ABDOMEN: Liver: No abnormality noted. No mass. Gallbladder and bile ducts: Cholecystectomy. No ductal dilation or stone noted. Pancreas: No abnormality noted. No ductal dilation. No mass. Spleen: No abnormality noted. No splenomegaly. Adrenals: No abnormality noted. No mass. Kidneys and ureters: Stable 2 mm nonobstructing left kidney stone. Right kidney appears normal. Stomach and bowel: No abnormality noted. No obstruction. No mucosal thickening. PELVIS: Appendix: No findings to suggest acute appendicitis. Bladder: There is a small amount of air in the urinary bladder. Previously seen Gutierrez catheter no longer present. No stones. Reproductive: No significant abnormality noted. ABDOMEN and PELVIS: Intraperitoneal space: There is a small amount of layering fluid in the presacral space. No abscess or free air. Bones/joints: Internally fixed intertrochanteric fracture of the left femur noted. Visualized portion of the hardware well-seated. There is severe arthritic change of the left hip. Mild degenerative changes right hip. There is accentuated lumbar lordosis and diffuse facet arthrosis and mild spondylosis. Soft tissues: There is irregular gas, subcutaneous hematoma and generalized contusional changes in the subcutaneous fat lateral to the left hip. No acute extravasation identified. The area in total a measures greatest transverse diameter of approximately 1 and 11 cm transverse by 16 cm long. 5 9 cm AP. There is increased conspicuity of subcutaneous contusion in the right lateral pannus. Lymph nodes: No abnormality noted. No enlarged lymph nodes. IMPRESSION: 1. Hematoma and generalized subcutaneous contusion lateral to the left hip as above. No active extravasation noted. 2. Increased small layering pleural effusions and bilateral lower lobe compressive atelectasis. ACT 112: N/A Electronically signed by Ana Paula Stock 11-22-2024 09:49 AM Chest X-Ray 11/26/24 09:56 XR chest 1V portable CLINICAL HISTORY: shortness of breath COMPARISON STUDY: 11/16/2024 FINDINGS: There is stable prominent cardiomegaly with pulmonary vascular congestion. Stable diffuse pulmonary interstitial prominence. Stable hazy opacity in the lung bases with obscuration of the diaphragm and blunting of the costophrenic angles. IMPRESSION: Stable CHF with small bilateral pleural effusions and associated lung base consolidation. ACT 112: Negative or not required by law. Electronically signed by: Chan Limon M.D. 11/26/2024 10:24 AM
[2024-11-28] MEDS: MIDODRINE HCL 2.5 MG TAB PO SCH (13:20)
--- NOTE | 2024-11-28 15:50 | Hospitalist Progress Note ---
Date of Service November 28, 2024 Assessment & Plan (1) Closed left hip fracture: Plan: 74-year-old female from [place] visiting [place] with past medical history significant for hypertension, CHF who is status post fall with left hip fracture, s/p ORIF on 11/07/24 with postop anemia and hypotension requiring transfer to the ICU. Closed left hip fracture Secondary to mechanical fall --S/P open reduction internal fixation left hip by Dr. Fitch on 11/07/2024 Left hip hematoma S/P ORIF, Non healing wound S/P incision and drainage left hip by Dr. Fitch on 11/23/2024 Postoperative acute blood loss anemia -- Wound culture:E coli, Klebsiella oxytoca, Soto ornithinolytica, Porphyromonas, Pseudomonas -- Appreciate orthopedics, ID input Weightbearing as tolerated left lower extremity PT OT, fall precautions Pain control as needed IV Rocephin transition to cefepime 2 g IV every 8 hours and added metronidazole 500 mg twice a day Plan to continue cefepime, metronidazole to complete 2-week course till 12/09/2024. Transition to Levaquin 750 mg daily from 12/10/24 to 12/23/24. Needs weekly CBC with differential, CMP, ESR, CRP while on IV antibiotics Monitor CBC INR therapeutic Continue wound VAC as recommended by orthopedics Hold Coumadin as wound draining increased INR therapeutic Given risk factors, plan to resume Coumadin as soon as possible Needs follow-up with orthopedics, infectious disease on discharge Needs rehab placement once stable Hypotension Hypotensive Shock Pt with postop hypotensive shock requiring transfer to the ICU Required vasopressor support x2 Was on midodrine 10mg TID, hydrocortisone and florinef for adrenal support Home antihypertensives on hold Appreciate critical care, cardiology input Continue metoprolol, midodrine Given dizziness and persistent hypotension, will increase midodrine to 5 mg 3 times daily Acute Blood Loss Anemia post op, requiring 3U pRBCs CT abd/pelvis noting large hematoma Hemoglobin stable 10.0 today Monitor CBC Acute depression Feels very depressed and wanted to have some help Appreciate psychiatrist input and recommendation Plan to start duloxetine 20 mg daily after about 4 weeks to decrease the risk of bleeding She is agreeable to start duloxetine 20 mg daily after about 4 weeks (2) Chronic heart failure with preserved ejection fraction: Plan: Acute on Chronic heart failure with preserved EF Hypoxia--resolved IV Lasix discontinued Appreciate Cardiology input Continue torsemide 20 mg daily, metoprolol succinate 50 mg every morning, 25 mg every afternoon Monitor volume status closely Valvular heart disease --ECHO: Moderate concentric LVH, focal thickening of basal septum with cavity obliteration at mid ventricular level. Septal motion is consistent with conduction abnormality. EF 65 to 70%. Left atrium is severely dilated. Aortic valve leaflets are moderately calcified. Mild to moderate valvular aortic stenosis. Severe mitral annular calcification. Mitral valve leaflets appear mobile. Mild mitral stenosis. Severe mitral regurgitation. --Continue current medications Follow-up with cardiology on discharge (3) Atrial fibrillation with controlled ventricular response: Plan: Atrial Fibrillation with RVR Was on IV amiodarone, then transitioned to oral amiodarone before being discontinued. Continue metoprolol succinate, digoxin IV Lopressor as needed INR 2.5 today Monitor Resume Coumadin as soon as possible Hypocalcemia Hypokalemia Replete electrolytes as needed Monitor (4) Moderate mitral regurgitation: Plan Leukocytosis Likely in setting of steroid use Resolved DVT Px: Coumadin--on hold INR therapeutic CODE STATUS Full code Disposition Rehab when able Admission and Anticipated Discharge Date Admission Date: November 06, 2024 Subjective Patient is seen and examined at bedside States feeling dizzy overnight and this morning associate with some nausea Denies any significant pain Discussed with patient's family at bedside Also discussed with orthopedics and cardiology today Denies any chest pain, dyspnea, nausea, vomiting, abdominal pain Review of Systems Review of Systems: All systems reviewed & are unremarkable except as noted in Subjective Physical Exam Physical Exam: Physical Exam: Vitals signs as noted above General Appearance:Moderately built and nourished, no apparent distress Head: normocephalic, Atraumatic Eyes: normal inspection, EOMI Neck: supple, Trachea midline Respiratory/Chest: Decreased breath sounds, CTA, No accessory muscle use Cardiovascular: Irregularly irregular,+ murmur Abdomen/GI:Soft, Non tender, Bowel sounds present Extremities/Musculoskeletal:normal inspection, 1+edema, left hip wound VAC, venous stasis changes Neurologic/Psych:AAOX3, grossly no focal neurological deficits Skin: normal color, warm Results & Data Results & Data Vital Signs (Past 12 Hours) Vital Signs Temp Pulse Pulse Resp BP Pulse Ox O2 Del Method 11/28/24 15:29 36.5 C 72 20 98/62 L 94 Room Air 11/28/24 13:02 87 11/28/24 12:10 36.4 C L 78 16 100/66 96 Room Air 11/28/24 07:59 36.4 C L 76 16 90/58 L 96 Room Air 11/28/24 05:30 76 Laboratory Results Short CBC 11/28/24 Range/Units 05:51 WBC 4.40 L (4.8-10.8) K/ul Hgb 10.0 L (12.0-16.0) g/dl Hct 31.6 L (37.0-47.0) % Plt Count 172 (130-400) K/uL BMP 11/28/24 05:51 Sodium 134 L Potassium 3.7 Chloride 100 Carbon Dioxide 27 BUN 24 H Creatinine 1.15 Glucose 105 H Calcium 8.1 L
[2024-11-29 06:33] LABS: Hematocrit (blood only) 32.4 % (37.0-47.0)
[2024-11-29 07:02] LABS: INR 2.4 (0.9-1.1); Prothrombin Time 23.7 Seconds (9.0-12.0)
--- NOTE | 2024-11-29 11:05 | Orthopedic Progress Note ---
Date of Service November 29, 2024 Assessment & Plan (1) Postoperative wound infection: Plan: POD #6 s/p I&D Left hip, with E. Coli, Klebsiella, Porphyromonas somerae, Pseudomonas aeruginosa infection, 2 weeks s/p ORIF L hip fracture. Known left hip arthritis PLAN: no plans for any acute surgical intervention. However, given the continued minimal bloody drainage from the wound recommend continuing to hold her anticoagulation until this ceases. Continue the wound VAC. Continue antibiotics per infectious diseases. PT/OT WBAT LLE OOB to chair Continue pain control Dr. Fitch is out and Dr. Louis will be covering until he is back 12/02/24. If after changing Wound Vac 12/01 and concern for recurrent infection would make NPO after MN for possible repeat I&D, if continued drainage on 12/01 and concern for infection consider placing as an add-on for 12/02 and would make NPO, continue to hold Coumadin 12/01, + stat INR 12/02 am, likely need to reverse. Admission and Anticipated Discharge Date Admission Date: November 06, 2024 Subjective patient seen and examined on a.m. rounds. She reports she is done well overnight. Her hip feels good. She said she was out of bed with physical therapy yesterday and this went well. No fevers or chills. Minimal pain in the hip. No numbness or tingling. Physical Exam Physical Exam: On exam she is resting comfortably in bed no acute distress alert and oriented x 3. Left lower extremity exam: Wound VAC was inspected. Less than 5 cc of dried blood in the wound VAC collection canister. Inspection of the wound revealed some mild bruising in the buttock posterior to the wound VAC. This is stable from yesterday. There is no redness or evidence of cellulitis around the wound VAC. Attempted to express the wound and there was minimal blood being sucked through the wound VAC tubing with this maneuver. Distally neurovascularly intact. Results & Data Vital Signs (Past 12 Hours) Vital Signs Temp Pulse Pulse Resp BP Pulse Ox O2 Del Method 11/29/24 10:21 Room Air 11/29/24 07:42 36.3 C L 70 20 92/55 L 96 Room Air 11/29/24 05:24 71 11/29/24 03:15 36.4 C L 76 18 99/65 L 92 Room Air Laboratory Results Laboratory Results - last 24 hr 11/29/24 06:01 Hgb 10.0 L Hct 32.4 L PT 23.7 H INR 2.4 H
[2024-11-29] MEDS: DOCUSATE SODIUM 100 MG CAP PO SCH (11:08)
--- NOTE | 2024-11-29 13:15 | Hospitalist Progress Note ---
Date of Service November 29, 2024 Assessment & Plan (1) Closed left hip fracture: Plan: 74-year-old female from [place] visiting [place] with past medical history significant for hypertension, CHF who is status post fall with left hip fracture, s/p ORIF on 11/07/24 with postop anemia and hypotension requiring transfer to the ICU. Closed left hip fracture Secondary to mechanical fall --S/P open reduction internal fixation left hip by Dr. Fitch on 11/07/2024 Left hip hematoma S/P ORIF, Non healing wound S/P incision and drainage left hip by Dr. Fitch on 11/23/2024 Postoperative acute blood loss anemia -- Wound culture:E coli, Klebsiella oxytoca, Soto ornithinolytica, Porphyromonas, Pseudomonas -- Appreciate orthopedics, ID input Weightbearing as tolerated left lower extremity PT OT, fall precautions Pain control as needed IV Rocephin transition to cefepime 2 g IV every 8 hours and added metronidazole 500 mg twice a day Plan to continue cefepime, metronidazole to complete 2-week course till 12/09/2024. Transition to Levaquin 750 mg daily from 12/10/24 to 12/23/24. Needs weekly CBC with differential, CMP, ESR, CRP while on IV antibiotics Monitor CBC INR therapeutic Continue wound VAC as recommended by orthopedics Hold Coumadin as wound draining increased INR therapeutic: 2.4 today Given risk factors, plan to resume Coumadin as soon as possible Needs follow-up with orthopedics, infectious disease on discharge May need repeat I&D per Ortho. To be determined after wound VAC change on 12/01 Hemoglobin stable Hypotension Hypotensive Shock Pt with postop hypotensive shock requiring transfer to the ICU Required vasopressor support x2 Was on midodrine 10mg TID, hydrocortisone and florinef for adrenal support Home antihypertensives on hold Appreciate critical care, cardiology input Continue metoprolol, midodrine Continue midodrine 5 mg 3 times daily, will consider to increase dose if needed persistent hypotension Constipation Started on bowel regimen Minimize narcotic use as able Encouraged to ambulate Acute Blood Loss Anemia post op, requiring 3U pRBCs CT abd/pelvis noting large hematoma Hemoglobin stable 10.0 today Monitor CBC Acute depression Feels very depressed and wanted to have some help Appreciate psychiatrist input and recommendation Plan to start duloxetine 20 mg daily after about 4 weeks to decrease the risk of bleeding She is agreeable to start duloxetine 20 mg daily after about 4 weeks (2) Chronic heart failure with preserved ejection fraction: Plan: Acute on Chronic heart failure with preserved EF Hypoxia--resolved IV Lasix discontinued Appreciate Cardiology input Continue torsemide 20 mg daily, metoprolol succinate 50 mg every morning, 25 mg every afternoon Monitor volume status closely Valvular heart disease --ECHO: Moderate concentric LVH, focal thickening of basal septum with cavity obliteration at mid ventricular level. Septal motion is consistent with conduction abnormality. EF 65 to 70%. Left atrium is severely dilated. Aortic valve leaflets are moderately calcified. Mild to moderate valvular aortic stenosis. Severe mitral annular calcification. Mitral valve leaflets appear mobile. Mild mitral stenosis. Severe mitral regurgitation. --Continue current medications Follow-up with cardiology on discharge (3) Atrial fibrillation with controlled ventricular response: Plan: Atrial Fibrillation with RVR Was on IV amiodarone, then transitioned to oral amiodarone before being discontinued. Continue metoprolol succinate, digoxin IV Lopressor as needed INR 2.4 today Monitor Resume Coumadin as soon as possible Hypocalcemia Hypokalemia Replete electrolytes as needed Monitor (4) Moderate mitral regurgitation: Plan Leukocytosis Likely in setting of steroid use Resolved DVT Px: Coumadin--on hold INR therapeutic CODE STATUS Full code Disposition Rehab when able Admission and Anticipated Discharge Date Admission Date: November 06, 2024 Subjective Patient is seen and examined at bedside Reports having nausea associated with constipation Also states having dizziness while having PT yesterday Left leg pain is well-controlled No other complaints today Denies any chest pain, dyspnea, vomiting, abdominal pain Review of Systems Review of Systems: All systems reviewed & are unremarkable except as noted in Subjective Physical Exam Physical Exam: Physical Exam: Vitals signs as noted above General Appearance:Moderately built and nourished, no apparent distress Head: normocephalic, Atraumatic Eyes: normal inspection, EOMI Neck: supple, Trachea midline Respiratory/Chest: Decreased breath sounds, CTA, No accessory muscle use Cardiovascular: Irregularly irregular,+ murmur Abdomen/GI:Soft, Non tender, Bowel sounds present Extremities/Musculoskeletal:normal inspection, trace edema, left hip wound VAC, venous stasis changes Neurologic/Psych:AAOX3, grossly no focal neurological deficits Skin: normal color, warm Results & Data Results & Data Vital Signs (Past 12 Hours) Vital Signs Temp Pulse Pulse Resp BP Pulse Ox O2 Del Method 11/29/24 12:33 94/68 L 11/29/24 11:18 36.7 C 67 16 104/61 93 Room Air 11/29/24 10:21 Room Air 11/29/24 07:42 36.3 C L 70 20 92/55 L 96 Room Air 11/29/24 05:24 71 11/29/24 03:15 36.4 C L 76 18 99/65 L 92 Room Air Laboratory Results Short CBC 11/29/24 Range/Units 06:01 Hgb 10.0 L (12.0-16.0) g/dl Hct 32.4 L (37.0-47.0) %
[2024-11-30 07:13] LABS: Prothrombin Time 20.6 Seconds (9.0-12.0)
[2024-11-30] MEDS: ONDANSETRON INJ 2 MG/ML 2 ML VIAL IV PRN (07:26)
[2024-11-30 08:44] LABS: Hematocrit (blood only) 34.2 % (37.0-47.0); Hemoglobin 10.7 g/dl (12.0-16.0)
--- NOTE | 2024-11-30 10:08 | XRay Report ---
2 views of the abdomen were obtained Comparison is made to the CT dated 11/22/2024 Findings: There is constipation with prominent stool within the rectum. There is no definite sign of bowel obstruction. There are surgical clips in the right upper quadrant. No definite renal or ureteral calculi are seen. There is severe left hip osteoarthritis. There is internal fixation of the left femur. There is an unchanged displaced greater trochanter fracture fragment that could be acute or subacute. There is lumbar scoliosis and degenerative disc disease Impression: 1. Constipation 2. Unchanged left femoral neck fracture, internal fixation of the left femur, and severe left hip osteoarthritis ACT 112: Positive. There are findings on this exam that require communication between the performing entity and the patient following Patient Test Result Information Act ([place] ACT 112) guidelines. Electronically signed by Vladimir Dickson 11-30-2024 10:07 AM
[2024-11-30] MEDS ORDERED: bisacodyL 10 MG SUPP PR PRN (10:29)
--- NOTE | 2024-11-30 11:54 | Hospitalist Progress Note ---
Date of Service November 30, 2024 Assessment & Plan (1) Closed left hip fracture: Plan: 74-year-old female from [place] visiting [place] with past medical history significant for hypertension, CHF who is status post fall with left hip fracture, s/p ORIF on 11/07/24 with postop anemia and hypotension requiring transfer to the ICU. Closed left hip fracture Secondary to mechanical fall --S/P open reduction internal fixation left hip by Dr. Fitch on 11/07/2024 Left hip hematoma S/P ORIF, Non healing wound S/P incision and drainage left hip by Dr. Fitch on 11/23/2024 Postoperative acute blood loss anemia -- Wound culture:E coli, Klebsiella oxytoca, Soto ornithinolytica, Porphyromonas, Pseudomonas -- Appreciate orthopedics, ID input Weightbearing as tolerated left lower extremity PT OT, fall precautions Pain control as needed IV Rocephin transition to cefepime 2 g IV every 8 hours and added metronidazole 500 mg twice a day Plan to continue cefepime, metronidazole to complete 2-week course till 12/09/2024. Transition to Levaquin 750 mg daily from 12/10/24 to 12/23/24. Needs weekly CBC with differential, CMP, ESR, CRP while on IV antibiotics Monitor CBC INR therapeutic Continue wound VAC as recommended by orthopedics Hold Coumadin as wound draining increased INR therapeutic: 2.0 today Given risk factors, plan to resume Coumadin as soon as possible Needs follow-up with orthopedics, infectious disease on discharge Hemoglobin stable Further need for I&D to be determined likely tomorrow after wound VAC change Needs rehab placement once cleared by Ortho Hypotension Hypotensive Shock Pt with postop hypotensive shock requiring transfer to the ICU Required vasopressor support x2 Was on midodrine 10mg TID, hydrocortisone and florinef for adrenal support Home antihypertensives on hold Appreciate critical care, cardiology input Continue metoprolol, midodrine Increase midodrine to 10 mg TID given symptomatic hypotension Constipation Started on bowel regimen Minimize narcotic use as able Encouraged to ambulate KUB today showed no signs of obstruction Acute Blood Loss Anemia post op, requiring 3U pRBCs CT abd/pelvis noting large hematoma Hemoglobin stable 10.7 today Monitor CBC Acute depression Feels very depressed and wanted to have some help Appreciate psychiatrist input and recommendation Plan to start duloxetine 20 mg daily after about 4 weeks to decrease the risk of bleeding She is agreeable to start duloxetine 20 mg daily after about 4 weeks (2) Chronic heart failure with preserved ejection fraction: Plan: Acute on Chronic heart failure with preserved EF Hypoxia--resolved IV Lasix discontinued Appreciate Cardiology input Continue torsemide 20 mg daily, metoprolol succinate 50 mg every morning, 25 mg every afternoon Monitor volume status closely Valvular heart disease --ECHO: Moderate concentric LVH, focal thickening of basal septum with cavity obliteration at mid ventricular level. Septal motion is consistent with c onduction abnormality. EF 65 to 70%. Left atrium is severely dilated. Aortic valve leaflets are moderately calcified. Mild to moderate valvular aortic stenosis. Severe mitral annular calcification. Mitral valve leaflets appear mobile. Mild mitral stenosis. Severe mitral regurgitation. --Continue current medications Follow-up with cardiology on discharge (3) Atrial fibrillation with controlled ventricular response: Plan: Atrial Fibrillation with RVR Was on IV amiodarone, then transitioned to oral amiodarone before being discontinued. Continue metoprolol succinate, digoxin IV Lopressor as needed INR 2.0 today Monitor Resume Coumadin as soon as possible Hypocalcemia Hypokalemia Replete electrolytes as needed Monitor (4) Moderate mitral regurgitation: Plan Leukocytosis Likely in setting of steroid use Resolved DVT Px: Coumadin--on hold INR therapeutic CODE STATUS Full code Disposition Rehab when able Admission and Anticipated Discharge Date Admission Date: November 06, 2024 Subjective Patient is seen and examined at bedside Reports having nausea and intermittent dizziness Poor appetite secondary to nausea today Still constipated Denies any chest pain, dyspnea, vomiting, abdominal pain Review of Systems Review of Systems: All systems reviewed & are unremarkable except as noted in Subjective Physical Exam Physical Exam: Physical Exam: Vitals signs as noted above General Appearance:Moderately built and nourished, no apparent distress Head: normocephalic, Atraumatic Eyes: normal inspection, EOMI Neck: supple, Trachea midline Respiratory/Chest: Decreased breath sounds, CTA, No accessory muscle use Cardiovascular: Irregularly irregular,+ murmur Abdomen/GI:Soft, Non tender, Bowel sounds present Extremities/Musculoskeletal:normal inspection, trace edema, left hip wound VAC, venous stasis changes Neurologic/Psych:AAOX3, grossly no focal neurological deficits Skin: normal color, warm Results & Data Results & Data Vital Signs (Past 12 Hours) Vital Signs Temp Pulse Pulse Resp BP Pulse Ox O2 Del Method 11/30/24 10:45 Room Air 11/30/24 09:58 93/61 L 11/30/24 07:53 36.4 C L 83 16 87/55 L 93 Room Air 11/30/24 05:41 71 11/30/24 03:07 36.4 C L 78 18 102/66 90 Room Air Laboratory Results Short CBC 11/30/24 Range/Units 06:08 Hgb 10.7 L (12.0-16.0) g/dl Hct 34.2 L (37.0-47.0) % Liver Function 11/30/24 Range/Units 06:08 Albumin 3.0 L (3.4-5.0) gm/dl
[2024-11-30] MEDS: SENNA 8.6 MG TAB PO SCH (12:12)
[2024-11-30] MEDS: ALBUMIN 25% 12.5 GM/50 ML VIAL IV ONE (12:12)
[2024-11-30] MEDS: MIDODRINE HCL 10 MG TAB PO SCH (12:12)
[2024-11-30] MEDS: METOPROLOL SUCC 50MG EXT REL TAB PO ONE (12:54)
--- NOTE | 2024-11-30 13:27 | Orthopedic Progress Note ---
Date of Service November 30, 2024 Assessment & Plan (1) Postoperative wound infection: Plan: POD #6 s/p I&D Left hip, with E. Coli, Klebsiella, Porphyromonas somerae, Pseudomonas aeruginosa infection, 2 weeks s/p ORIF L hip fracture. Known left hip arthritis. Improving wound drainage secondary to small hematoma. PLAN: no plans for any acute surgical intervention. Given the continued minimal bloody drainage from the wound recommend continuing to hold her anticoagulation until this ceases, especially in case Dr. Fitch wishes to do a repeat I and D on Sunday. If INR drops below 2 tomorrow, could consider a dose of 40 mg SQ lovenox, although there is a risk this could worsen her wound drainage. Continue the wound VAC. Continue antibiotics per infectious diseases. PT/OT WBAT LLE OOB to chair Continue pain control Dr. Fitch is out and Dr. Louis will be covering until he is back 12/02/24. If after changing Wound Vac 12/01 and concern for recurrent infection would make NPO after MN for possible repeat I&D, if continued drainage on 12/01 and concern for infection consider placing as an add-on for 12/02 and would make NPO, continue to hold Coumadin 12/01, + stat INR 12/02 am, likely need to reverse. Admission and Anticipated Discharge Date Admission Date: November 06, 2024 Subjective Patient seen and examined on afternoon rounds. She reports her hip continues to feel well. She was able to get out of bed yesterday with physical therapy. No fevers or chills. Physical Exam Physical Exam: On exam she is resting comfortably in bed no acute distress alert and oriented x 3. Left lower extremity exam: Wound VAC was inspected. Minimal dried blood in the wound VAC collection canister. Inspection of the wound revealed some mild bruising in the buttock posterior to the wound VAC. This is stable from yesterday. There is no redness or evidence of cellulitis around the wound VAC. Attempted to express the wound and there was minimal blood being sucked through the wound VAC tubing with this maneuver, even smaller amount than yesterday. Distally neurovascularly intact. Results & Data Vital Signs (Past 12 Hours) Vital Signs Temp Pulse Pulse Resp BP Pulse Ox O2 Del Method 11/30/24 11:53 36.4 C L 59 L 16 114/67 93 Room Air 11/30/24 10:45 Room Air 11/30/24 09:58 93/61 L 11/30/24 07:53 36.4 C L 83 16 87/55 L 93 Room Air 11/30/24 05:41 71 11/30/24 03:07 36.4 C L 78 18 102/66 90 Room Air Laboratory Results INR today was 2.0.
[2024-11-30] MEDS: LACTULOSE SYRUP 20 GM/30 ML UDC PO ONE (19:00)
[2024-11-30] MEDS: METOPROLOL SUCC 25MG EXT REL TAB PO SCH (22:00)
[2024-12-01 06:59] LABS: Hematocrit (blood only) 34.1 % (37.0-47.0); Hemoglobin 10.8 g/dl (12.0-16.0); Mean Corpuscular Hemoglobin 31.9 pg (25.0-34.0); Mean Corpuscular Hgb Conc 31.7 g/dL (32.0-36.0); Mean Corpuscular Volume 100.6 fL (80.0-100.0); Mean Platelet Volume 10.1 fL (9.4-12.4); Platelet Count 215 K/uL (130-400); RDW Coefficient of Variation 23.9 % (11.5-14.5); RDW Standard Deviation 86.2 fL (36.4-46.3); Red Blood Count 3.39 M/uL (4.20-5.40); White Blood Count 5.15 K/ul (4.8-10.8)
[2024-12-01 07:16] LABS: BUN Creatinine Ratio 22.3 (10-20); Calcium 8.2 mg/dl (8.6-10.3); Creatinine Clr Calc Pharmacy 45.8 ml/min; Potassium 3.6 mmol/L (3.5-5.1)
[2024-12-01 07:33] LABS: INR 1.8 (0.9-1.1); Prothrombin Time 18.4 Seconds (9.0-12.0)
--- NOTE | 2024-12-01 10:34 | Orthopedic Progress Note ---
Date of Service December 01, 2024 Assessment & Plan (1) Postoperative wound infection: Plan: POD #6 s/p I&D Left hip, with E. Coli, Klebsiella, Porphyromonas somerae, Pseudomonas aeruginosa infection, 2 weeks s/p ORIF L hip fracture. Findings and plan was discussed with the patient and Dr. Fitch via phone and [place] text who was in agreement with left hip repeat I&D and wound VAC placement tomorrow. Consent was obtained. Patient will be n.p.o. at midnight tonight. Continue to hold the Coumadin. Okay to do a one-time dose today of 40 mg Lovenox. We will obtain and INR stat tomorrow morning. Would recommend getting infectious disease back on board for any adjustments that need to be made for antibiotics. Wound VAC was left off today and a dry dressing with gauze, ABDs, medical tape was placed today. I updated the nurse today that this may need to be changed. Hemoglobin today was stable at 10.8. Patient can continue to be weightbearing as tolerated up with her left lower extremity, out of bed to chair if able with assistance. Due to new onset of tingling in her toes and worsening pain in her BL calf left greater than right, being off the Coumadin for a couple days and other risk factors ordering a stat ultrasound of her bilateral lower extremities to rule out any DVT. Continue her current antibiotics, would recommend getting infectious disease back on board if they need to make any adjustments to her antibiotics Admission and Anticipated Discharge Date Admission Date: November 06, 2024 Segundo Fontana was seen today at bedside. She says that she feels nauseous and does not quite have an appetite. She was short of breath and dizzy yesterday. She has not had a bowel movement in 3 days. She is not having any pain in her hip currently. She does say that her toes are tingly which is new for her. She is also having worsening pain in her legs which is also new for her. She has had pain in her legs previously but this feels different and more painful than it has been. Left is greater than right. Physical Exam Physical Exam: Patient was seen today with wound care nurse Debra. The wound VAC was taken down. Patient has copious drainage from the Hemovac site which is thick, brownish-red/pink color. She has some tenderness around the incision. I am able to express drainage from the Hemovac site but also the distal part of the incision has slightly dehisced. It is tough to say whether this is a new opening in the incision or if this is part of the old incision. Drainage is able to be expressed from this area as well. Taking a Q-tip probe we were able to probe down approximately 11 cm. Wound VAC was left off and a dry dressing was placed with 4 x 4's, ABDs and medical tape. Results & Data Vital Signs (Past 12 Hours) Vital Signs Temp Pulse Pulse Resp BP BP Pulse Ox 12/01/24 07:32 36.6 C 69 16 103/68 92 12/01/24 06:57 77 12/01/24 02:58 36.5 C 78 18 101/63 90 11/30/24 22:34 36.5 C 78 18 88/60 L 93 O2 Del Method 12/01/24 07:32 Room Air 12/01/24 06:57 12/01/24 02:58 Room Air 11/30/24 22:34 Room Air Laboratory Results 12/01/24 Range/Units 06:09 WBC 5.15 (4.8-10.8) K/ul RBC 3.39 L (4.20-5.40) M/uL Hgb 10.8 L (12.0-16.0) g/dl Hct 34.1 L (37.0-47.0) % MCV 100.6 H (80.0-100.0) fL MCH 31.9 (25.0-34.0) pg MCHC 31.7 L (32.0-36.0) g/dL RDW Std Deviation 86.2 H (36.4-46.3) fL RDW Coeff of Gifty 23.9 H (11.5-14.5) % Plt Count 215 (130-400) K/uL MPV 10.1 (9.4-12.4) fL PT 18.4 H (9.0-12.0) Seconds INR 1.8 H (0.9-1.1) Sodium 134 L (136-145) mmol/L Potassium 3.6 (3.5-5.1) mmol/L Chloride 100 (98-107) mmol/L Carbon Dioxide 26 (21-32) mmol/L Anion Gap 8 (3-11) BUN 29 H (6-23) mg/dl Creatinine 1.30 H (0.6-1.2) mg/dl Est Cr Clr Drug Dosing 45.8 ml/min eGFR 43.15 BUN/Creatinine Ratio 22.3 H (10-20) Glucose 98 (70-99(Fasting)) mg/dl Calcium 8.2 L (8.6-10.3) mg/dl
--- NOTE | 2024-12-01 12:04 | Ultrasound Report ---
BILATERAL LOWER EXTREMITY VENOUS DOPPLER HISTORY: bilateral worsening calf pain, L>R, r/o BL DVT COMPARISON STUDY: None FINDINGS: There is a small amount of thrombus at the posterior tibial vein on the right. No other marce dence of DVT seen at either lower extremity. There is a likely small Myers's cyst on the left. IMPRESSION: Small amount of DVT at the right lower extremity. No DVT seen on the left. ACT 112: Negative or not required by law. Electronically signed by: Chan Limon M.D. 12/01/2024 12:03 PM
[2024-12-01] MEDS: SOD PHOSPHATE/SOD BIPHOSPHATE ENEMA 132 ML BTL PR ONE (14:23)
--- NOTE | 2024-12-01 14:57 | Hospitalist Progress Note ---
Date of Service December 01, 2024 Assessment & Plan (1) Closed left hip fracture: Plan: 74-year-old female from [place] visiting [place] with past medical history significant for hypertension, CHF who is status post fall with left hip fracture, s/p ORIF on 11/07/24 with postop anemia and hypotension requiring transfer to the ICU. Closed left hip fracture Secondary to mechanical fall --S/P open reduction internal fixation left hip by Dr. Fitch on 11/07/2024 Left hip hematoma S/P ORIF, Non healing wound S/P incision and drainage left hip by Dr. Fitch on 11/23/2024 Postoperative acute blood loss anemia -- Wound culture:E coli, Klebsiella oxytoca, [place] ornithinolytica, Porphyromonas, Pseudomonas -- Appreciate orthopedics, ID input Weightbearing as tolerated left lower extremity PT OT, fall precautions Pain control as needed IV Rocephin transition to cefepime 2 g IV every 8 hours and added metronidazole 500 mg twice a day Plan to continue cefepime, metronidazole to complete 2-week course till 12/09/2024. Transition to Levaquin 750 mg daily from 12/10/24 to 12/23/24. Needs weekly CBC with differential, CMP, ESR, CRP while on IV antibiotics Monitor CBC INR subtherapeutic: 1.8 today Wound VAC discontinued Held Coumadin as requested by orthopedics for I&D tomorrow, plan to resume as soon as possible once cleared by Ortho Needs follow-up with orthopedics, infectious disease on discharge N.p.o. after midnight for I&D tomorrow Hypotension Hypotensive Shock Pt with postop hypotensive shock requiring transfer to the ICU Required vasopressor support x2 Was on midodrine 10mg TID, hydrocortisone and florinef for adrenal support Home antihypertensives on hold Appreciate critical care, cardiology input Continue metoprolol, midodrine Increase midodrine to 10 mg TID given symptomatic hypotension Blood pressure better with midodrine Constipation KUB showed no signs of obstruction Continue bowel regimen Minimize narcotic use as able Encouraged to ambulate Will give enema today Acute Blood Loss Anemia post op, requiring 3U pRBCs CT abd/pelvis noting large hematoma Hemoglobin stable 10.8 today Monitor CBC Right lower extremity DVT Likely due to interruption of Coumadin for procedure and immobilization --Venous doppler:Small amount of DVT at the right lower extremity. No DVT seen on the left. Plan to start on low-dose heparin if okay with Ortho Transition to Coumadin as able Acute depression Feels very depressed and wanted to have some help Appreciate psychiatrist input and recommendation Plan to start duloxetine 20 mg daily after about 4 weeks to decrease the risk of bleeding She is agreeable to start duloxetine 20 mg daily after about 4 weeks (2) Chronic heart failure with preserved ejection fraction: Plan: Acute on Chronic heart failure with preserved EF Hypoxia--resolved IV Lasix discontinued Appreciate Cardiology input Continue metoprolol succinate 50 mg every morning, 25 mg every afternoon Monitor volume status closely Hold torsemide as planned for procedure tomorrow and creatinine rising Resume torsemide as able Valvular heart disease --ECHO: Moderate concentric LVH, focal thickening of basal septum with cavity obliteration at mid ventricular level. Septal motion is consistent with conduction abnormality. EF 65 to 70%. Left atrium is severely dilated. Aortic valve leaflets are moderately calcified. Mild to moderate valvular aortic stenosis. Severe mitral annular calcification. Mitral valve leaflets appear mobile. Mild mitral stenosis. Severe mitral regurgitation. --Continue current medications Follow-up with cardiology on discharge (3) Atrial fibrillation with controlled ventricular response: Plan: Atrial Fibrillation with RVR Was on IV amiodarone, then transitioned to oral amiodarone before being discontinued. Continue metoprolol succinate, digoxin IV Lopressor as needed INR 1.8 today Coumadin on hold Plan to start IV heparin if okay with Ortho Hypocalcemia Hypokalemia Replete electrolytes as needed Monitor Acute kidney injury Likely multifactorial: Hypotension, ATN, medications Torsemide on hold Adjust medications renally Monitor renal function Creatinine 1.3 today (4) Moderate mitral regurgitation: Plan Leukocytosis Likely in setting of steroid use Resolved DVT Px: Coumadin--on hold CODE STATUS Full code Disposition Rehab when able Admission and Anticipated Discharge Date Admission Date: November 06, 2024 Subjective Patient is seen and examined at bedside Reports bilateral leg pain today + Flatus, no bowel movement today Dizziness improved Discussed with orthopedics today Still feels nauseous intermittently Denies any chest pain, dyspnea, vomiting, abdominal pain Review of Systems Review of Systems: All systems reviewed & are unremarkable except as noted in Subjective Physical Exam Physical Exam: Physical Exam: Vitals signs as noted above General Appearance:Moderately built and nourished, no apparent distress Head: normocephalic, Atraumatic Eyes: normal inspection, EOMI Neck: supple, Trachea midline Respiratory/Chest: Decreased breath sounds, CTA, No accessory muscle use Cardiovascular: Irregularly irregular,+ murmur Abdomen/GI:Soft, Non tender, Bowel sounds present Extremities/Musculoskeletal:normal inspection, trace edema, left hip wound VAC, venous stasis changes Neurologic/Psych:AAOX3, grossly no focal neurological deficits Skin: normal color, warm Results & Data Results & Data Vital Signs (Past 12 Hours) Vital Signs Temp Pulse Pulse Resp BP BP Pulse Ox 12/01/24 12:51 36.6 C 67 18 106/71 91 12/01/24 12:27 12/01/24 07:32 36.6 C 69 16 103/68 92 12/01/24 06:57 77 12/01/24 02:58 36.5 C 78 18 101/63 90 O2 Del Method 12/01/24 12:51 Room Air 12/01/24 12:27 Room Air 12/01/24 07:32 Room Air 12/01/24 06:57 12/01/24 02:58 Room Air Laboratory Results Short CBC 12/01/24 Range/Units 06:09 WBC 5.15 (4.8-10.8) K/ul Hgb 10.8 L (12.0-16.0) g/dl Hct 34.1 L (37.0-47.0) % Plt Count 215 (130-400) K/uL BMP 12/01/24 06:09 Sodium 134 L Potassium 3.6 Chloride 100 Carbon Dioxide 26 BUN 29 H Creatinine 1.30 H Glucose 98 Calcium 8.2 L
--- NOTE | 2024-12-01 15:05 | Communication Note ---
Date of Service: December 01, 2024 Okay with orthopedics to start on IV heparin. Orthopedics recommends to hold IV heparin midnight for procedure tomorrow.
[2024-12-01] MEDS: Heparin IV Adult Wt-Based Low-Dose *NO* INITIAL Bolus Protocol IV STA (15:48)
[2024-12-01] MEDS: HEPARIN 25000 UNIT/500 ML D5W 25,000 UNITS/500 ML BAG IV SCH (16:03)
[2024-12-01 16:17] LABS: Basophils # (auto) 0.04 K/uL (0.00-0.20); Basophils % (auto) 0.6 %; Eosinophils # (auto) 0.04 K/uL (0.00-0.50); Eosinophils % (auto) 0.6 %; Hematocrit (blood only) 36.2 % (37.0-47.0); Hemoglobin 11.6 g/dl (12.0-16.0); Immature Granulocytes # (auto) 0.19 K/uL (0.01-0.20); Immature Granulocytes % (auto) 2.9 %; Lymphocytes % (auto) 7.5 %; Mean Corpuscular Hemoglobin 32.4 pg (25.0-34.0); Mean Corpuscular Volume 101.1 fL (80.0-100.0); Mean Platelet Volume 10.4 fL (9.4-12.4); Monocytes # (auto) 0.69 K/uL (0.11-0.59); Monocytes % (auto) 10.4 %; Platelet Count 244 K/uL (130-400); RDW Coefficient of Variation 23.7 % (11.5-14.5); RDW Standard Deviation 86.3 fL (36.4-46.3); Red Blood Count 3.58 M/uL (4.20-5.40); White Blood Count 6.66 K/ul (4.8-10.8)
[2024-12-01 16:41] LABS: INR 1.8 (0.9-1.1); Partial Thromboplastin Ratio 1.2; Partial Thromboplastin Time 33 Seconds (21-31); Prothrombin Time 18.5 Seconds (9.0-12.0)
[2024-12-01 16:50] LABS: Anisocytosis Present; Polychromasia 1+; Tear Drop Cells 1+
[2024-12-01] MEDS: CEFEPIME 2000MG 2,000 MG/20 ML SYR IV SCH (20:32)
[2024-12-01 23:33] LABS: ANTI-Xa, UFH(UnfractionatedHep < 0.10 IU/ml (0.3-0.7)
[2024-12-02 05:50] LABS: Hematocrit (blood only) 38.1 % (37.0-47.0); Mean Corpuscular Hemoglobin 31.8 pg (25.0-34.0); Mean Corpuscular Hgb Conc 31.5 g/dL (32.0-36.0); Mean Corpuscular Volume 101.1 fL (80.0-100.0); Mean Platelet Volume 9.8 fL (9.4-12.4); Platelet Count 207 K/uL (130-400); RDW Coefficient of Variation 23.8 % (11.5-14.5); RDW Standard Deviation 86.4 fL (36.4-46.3); Red Blood Count 3.77 M/uL (4.20-5.40); White Blood Count 5.77 K/ul (4.8-10.8)
[2024-12-02 06:08] LABS: Calcium 8.3 mg/dl (8.6-10.3); Potassium 3.8 mmol/L (3.5-5.1)
[2024-12-02 06:14] LABS: BUN Creatinine Ratio 21.6 (10-20); Creatinine Clr Calc Pharmacy 44.4 ml/min
[2024-12-02 06:16] LABS: INR 1.6 (0.9-1.1); Prothrombin Time 16.7 Seconds (9.0-12.0)
--- NOTE | 2024-12-02 10:24 | Orthopedic Progress Note ---
Date of Service December 02, 2024 Assessment & Plan (1) Postoperative wound infection: Plan: POD #9 s/p I&D Left hip, with E. Coli, Klebsiella, Porphyromonas somerae, Pseudomonas aeruginosa infection, 3.5 weeks s/p ORIF L hip fracture. Dressing that was applied yesterday appears to be dry and intact. This was left in place as she will be going to the OR later today. Patient is currently NPO. She is scheduled for repeat incision and drainage left hip with wound VAC placement with Dr. Fitch later today. INR this morning is 1.6. PTT yesterday just above high normal at 33. No significant changes in labs today. Patient can continue to be weightbearing as tolerated up with her left lower extremity, out of bed to chair if able with assistance. Continue antibiotics. (2) Right leg DVT: Plan: Bilateral Doppler yesterday was positive for a small clot in the right posterior tibial vein. Patient has been receiving heparin and Coumadin however this is held today pending I&D left hip. Symptoms have improved from yesterday. She does not have any edema or redness to the lower extremities. Resume heparin and coumadin after surgery Admission and Anticipated Discharge Date Admission Date: November 06, 2024 Supervising Physician Co-Signing Physician Notes I, Dr. Fitch, saw and examined the patient and agree with the above findings and plan of care. LLE: Patient sitting in chair. NV intact. Distal incisions healing nicely, no evidence of infection. Proximal incision with old bloody drainage. calf soft and non-tender. IMPRESSION: POD #9 s/p I&D Left hip, with E. Coli, Klebsiella, Porphyromonas somerae, Pseudomonas aeruginosa infection, 3 weeks s/p ORIF L hip fracture, doing better PLAN: Acute anemia blood loss, stable Hgb 9.6. Consult ID appreciated, continue IV Rocephin 2g IV q24h x 2 weeks, then switch to cefpodoxime 400mg PO bid for another 2 weeks due to the closeness of the orthopedic hardware Plan OR today repeat I&D and wound vac placement PT/OT WBAT LLE OOB to chair Continue pain control Change dressing to Wound Vac 11/29/24 Continue care per primary service NPO Consent & LLE signed Discussed with patient and her son who are in agreement with the plan. Segundo Martinez is seen resting in bed this morning. She states right now she is having no pain. The tingling sensations he was experiencing in her toes yesterday has improved but not fully resolved. She is not experiencing any pain in her lower legs. She is feeling positive and hopeful about surgery today. She has not eaten any breakfast and only had a small sip of water with her medications. Has otherwise been NPO. Physical Exam Constitutional: Resting comfortably in bed. In no distress. Pleasant. Cardiovascular: PT pulses 2+ bilaterally Musculoskeletal: Left lower extremity: Bulky dressing overlying the left lateral hip incision is intact with no visible drainage through the dressing. This was left in place given pending surgery today. No tenderness in the surrounding soft tissue about the left hip. Strength 5/5 with bilateral ankle plantarflexion, dorsiflexion, eversion. Bilateral lower legs without edema or redness. There is tenderness in bilateral calves. Skin: Pain, warm, dry Neurologic: No sensory deficits in bilateral lower extremities L3-S1 distribution to light touch. Results & Data Vital Signs (Past 12 Hours) Vital Signs Temp Pulse Pulse Resp BP Pulse Ox O2 Del Method 12/02/24 08:55 Room Air 12/02/24 07:37 58 L 12/02/24 07:36 97.7 F 60 18 105/62 94 Room Air 12/02/24 03:37 97.4 F L 63 16 89/57 L 92 Room Air 12/02/24 00:40 61 12/01/24 23:19 97.7 F 69 18 91/57 L 93 Room Air Laboratory Results 12/02/24 12/01/24 12/01/24 05:24 22:23 15:54 WBC 5.77 6.66 RBC 3.77 L 3.58 L Hgb 12.0 11.6 L Hct 38.1 36.2 L MCV 101.1 H 101.1 H MCH 31.8 32.4 MCHC 31.5 L 32.0 RDW Std Deviation 86.4 H 86.3 H RDW Coeff of Gifty 23.8 H 23.7 H Plt Count 207 244 MPV 9.8 10.4 Immature Gran % (Auto) 2.9 Neut % (Auto) 78.0 Lymph % (Auto) 7.5 [place] % (Auto) 10.4 Eos % (Auto) 0.6 Baso % (Auto) 0.6 Neut # (Auto) 5.20 Lymph # (Auto) 0.50 L [place] # (Auto) 0.69 H Eos # (Auto) 0.04 Baso # (Auto) 0.04 Immature Gran # (Auto) 0.19 Polychromasia 1+ Anisocytosis Present Tear Drop Cells 1+ PT 16.7 H 18.5 H INR 1.6 H 1.8 H APTT 33 H PTT Ratio 1.2 Heparin Anti-Xa, Unfract < 0.10 L Sodium 132 L Potassium 3.8 Chloride 100 Carbon Dioxide 24 Anion Gap 8 BUN 29 H Creatinine 1.34 H Est Cr Clr Drug Dosing 44.4 eGFR 41.61 BUN/Creatinine Ratio 21.6 H Glucose 90 Calcium 8.3 L Diagnostic Findings BILATERAL LOWER EXTREMITY VENOUS DOPPLER HISTORY: bilateral worsening calf pain, L>R, r/o BL DVT COMPARISON STUDY: None FINDINGS: There is a small amount of thrombus at the posterior tibial vein on the right. No other evidence of DVT seen at either lower extremity. There is a likely small Myers's cyst on the left. IMPRESSION: Small amount of DVT at the right lower extremity. No DVT seen on the left. (2) Right leg DVT Affected thrombotic vein of extremity: tibial Chronicity: unspecified Qualified Code(s): I82.441 - Acute embolism and thrombosis of right tibial vein
[2024-12-02] MEDS: LACTATED RINGER'S 1,000 ML IV SCH (12:33)
[2024-12-02] MEDS ORDERED: ePHEDrine sulfate 50 MG/ML AMP IV PRN (13:01)
[2024-12-02] MEDS ORDERED: fentaNYL citrate PF 100 MCG/2 ML VIAL IV PRN (13:01)
[2024-12-02] MEDS ORDERED: ONDANSETRON INJ 2 MG/ML 2 ML VIAL IV PRN (13:01)
[2024-12-02] MEDS ORDERED: ATROPINE SULFATE 0.1 MG/ML 10ML SYR IV PRN (13:01)
[2024-12-02] MEDS ORDERED: HYDROmorphone INJ 1 MG/ML SYRINGE IV PRN (13:01)
--- NOTE | 2024-12-02 13:03 | Anesthesiology Consultation ---
Date of Service December 02, 2024 Assessment & Plan (1) Encounter for pre-operative examination: Chart Review Chart Review: Acceptable Risk for Surgery and Patient NOT seen in Pre Admission Testing Consults Requested none History Surgery Operation Date: 11/07/24 07:00 Proposed Procedures p Left Troch Nail - Silver Mariam Fitch MD Operation Date: 11/23/24 07:30 Proposed Procedures p Incision and Drainage Left Hip - Silver Mariam Fitch MD Operation Date: 12/02/24 12:50 Proposed Procedures p Left Repeat Incision and Drainage Hip with Wound Vac Placement - Silver Mariam Fitch MD Height/Weight Height: 5 ft 6 in Weight: 101.5 kg Allergies Allergy/AdvReac Type Severity Reaction Status Date / Time Penicillins Allergy Itching Verified 11/26/24 15:13 Medications Home Medications Medication Instructions Recorded Confirmed Last Taken carvedilol 25 mg tablet 25 mg PO BID 11/06/24 11/06/24 Unknown hydrochlorothiazide 25 mg tablet 25 mg PO DAILY 11/06/24 11/06/24 Unknown lisinopril 20 mg tablet 20 mg PO DAILY 11/06/24 11/06/24 Unknown Active Medications Generic Name Dose Route Start Last Admin Trade Name Freq PRN Reason Stop Dose Admin Calcium Carbonate 1,250 mg 11/12/24 09:00 12/02/24 08:13 Calcium Carbonate 1,250 Mg/5 Ml Udc PO 12/12/24 08:59 1,250 mg BID AFSHAN Administration Digoxin 0.125 mg 11/23/24 16:00 12/01/24 16:03 Digoxin 0.125 Mg Tab PO 12/23/24 15:59 0.125 mg DAILY@1600 AFSHAN Administration Docusate Sodium 100 mg 11/29/24 11:00 12/02/24 08:11 Docusate Sodium 100 Mg Cap PO 12/29/24 10:59 100 mg BID AFSHAN Administration Cefepime HCl 2,000 mg in 20 mls @ 5 mls/min 12/01/24 20:00 12/02/24 08:11 Maxipime 2000mg IV 12/09/24 22:00 5 mls/min Q12H AFSHAN Administration Protocol Heparin Sodium/Dextrose 25,000 units in 500 mls @ 0 mls/hr 12/01/24 15:30 12/02/24 00:10 Heparin 05564 Unit/500 Ml D5w IV 12/31/24 15:29 0 units/hr .Q0M AFSHAN 0 mls/hr Titration Protocol 0 UNITS/HR Lactated Ringer's 1,000 mls @ 15 mls/hr 12/02/24 12:45 12/02/24 12:33 Lr IV 12/05/24 12:44 15 mls/hr .Q24H AFSHAN Administration Magnesium Chloride 64 mg 11/27/24 09:00 12/02/24 08:12 Magnesium Chloride W/Calcium 64mg Delayed Rel Tab PO 12/27/24 08:59 64 mg BID AFSHAN Administration Metoprolol Succinate 50 mg 11/20/24 09:00 12/02/24 08:12 Metoprolol Succ 50mg Ext Rel Tab PO 12/20/24 08:59 50 mg QAM AFSHAN Administration Metoprolol Succinate 25 mg 11/30/24 21:00 12/01/24 20:33 Metoprolol Succ 25mg Ext Rel Tab PO 12/30/24 20:59 25 mg HS AFSHAN Administration Metronidazole 500 mg 11/26/24 21:00 12/02/24 08:12 Metronidazole 500 Mg Tab PO 12/09/24 23:59 500 mg BID AFSHAN Administration Protocol Midodrine 10 mg 11/30/24 12:00 12/02/24 12:04 Midodrine Hcl 10 Mg Tab PO 12/30/24 11:59 Not Given TID@0800,1200,1700 AFSHAN Ondansetron HCl 4 mg 11/28/24 09:56 11/30/24 07:26 Ondansetron Inj 2 Mg/Ml 2 Ml Vial IV 12/28/24 09:55 4 mg Q6H PRN Administration Nausea And Vomiting Oxycodone/Acetaminophen 1 tab 11/11/24 09:36 11/30/24 08:15 Oxycodone/Acetaminophen 5mg/325mg Tab PO 12/03/24 09:35 1 tab Q4H PRN Administration Pain Pantoprazole Sodium 40 mg 11/13/24 09:00 12/02/24 08:12 Pantoprazole 40 Mg Tab PO 12/13/24 08:59 40 mg QAM AFSHAN Administration Polyethylene Glycol 17 gm 11/06/24 23:16 12/01/24 08:42 Polyethylene (Miralax) 17 Gm Pack PO 12/06/24 23:15 17 gm DAILY PRN Administration Constipation Potassium Chloride 20 meq 11/20/24 09:00 12/02/24 08:11 Potassium Chloride Crtab 20 Meq Tabcr PO 12/20/24 08:59 20 meq QAM AFSHAN Administration Sennosides 17.2 mg 11/30/24 10:30 12/02/24 08:11 Senna 8.6 Mg Tab PO 12/30/24 10:29 17.2 mg QAM AFSHAN Administration Torsemide 20 mg 11/19/24 09:00 12/01/24 08:49 Torsemide 20 Mg Tab PO 12/19/24 08:59 20 mg QAM AFSHAN Administration Vitamin D 125 mcg 11/17/24 10:15 12/02/24 08:12 Cholecalciferol 125 Mcg (5,000 Units) Tab PO 12/17/24 10:14 125 mcg QAM AFSHAN Administration NPO Date Last Intake of Fluids: 12/01/24 Time Last Intake of Fluids: 23:30 Date Last Intake of Solids: 12/01/24 Time Last Intake of Solids: 17:00 Past Medical History Medical History (Updated 12/02/24 @ 14:05 by Cedric Johnson MD) Encounter for pre-operative examination Right leg DVT Postoperative wound infection Atrial fibrillation with rapid ventricular response (HFpEF) heart failure with preserved ejection fraction Acute on chronic heart failure with preserved ejection fraction (HFpEF) Mitral stenosis Severe mitral insufficiency Ex-smoker Severe pulmonary hypertension Aortic stenosis CHF (congestive heart failure) Exercise / Class Metabolic Activity II 4-5 Yardwork/Stairs/Walk up hill Past Surgical History two previous hip surgeries Past Anesthesia History No Hx of Anesthesia Complications and No Family Hx of Anesthesia Complications History of PONV No Hx of PONV and No Hx of Motion Sickness Social History Smoking Status: Former smoker Smoking End Date: 5 years ago Hx Alcohol Use: Yes Alcohol type: wine alcohol intake frequency: holidays/special occasions only Hx Substance Use: No Physical Exam Vital Signs Last Vital Signs Temp 36.4 C L 12/02/24 12:05 Pulse 63 12/02/24 12:05 Resp 20 12/02/24 12:05 BP 103/68 12/02/24 12:05 Pulse Ox 94 12/02/24 12:05 O2 Del Method Room Air 12/02/24 12:05 O2 Flow Rate 2 11/24/24 07:41 Testing Laboratory Results 12/02/24 05:24 12/02/24 05:24 PT 16.7 Seconds (9.0-12.0) H 12/02/24 05:24 INR 1.6 (0.9-1.1) H 12/02/24 05:24 APTT 33 Seconds (21-31) H 12/01/24 15:54 Hemoglobin A1c 5.1 % (4.5-5.6) 11/07/24 05:44 Blood Type A Positive 11/08/24 11:33 Antibody Screen NEGATIVE 11/08/24 11:33 11/23/24 08:35 Gram Stain - Final Hip,Left Aerobic and Anaerobic Culture - Final Escherichia coli Klebsiella oxytoc/[facility] ornith Porphyromonas somerae Pseudomonas aeruginosa Electrocardiogram Date: 11/09/24 Findings: + AFIB @ (@ 89;IRBBB;low voltage) Chest X-Ray Date: 11/16/24 Findings: + pulmonary vascular congestion (suspect low grade chf) Echocardiogram Date: 11/11/24 EF: 65% LV Function: normal RWMA: + none Other Findings: + atrial enlargement (LA severely dilated) Valvular Disease: + (mod.) and + MR (severe) MS-mild AV area- 1.8 cm 2
[2024-12-02] MEDS ORDERED: PROPOFOL IV EMULSION 10 MG/ML 20 ML VIAL IV ONE (13:11)
[2024-12-02] MEDS ORDERED: ROCURONIUM BROMIDE 10 MG/ML 5 ML VIAL IV ONE (13:11)
[2024-12-02] MEDS ORDERED: DEXAMETHASONE SOD INJ 4 MG/ML VIAL ONE ×2 (13:11→17:33)
[2024-12-02] MEDS ORDERED: ONDANSETRON INJ 2 MG/ML 2 ML VIAL ONE (13:11)
[2024-12-02] MEDS ORDERED: fentaNYL citrate PF 100 MCG/2 ML VIAL ONE ×3 (15:02→17:41)
--- NOTE | 2024-12-02 15:16 | Hospitalist Progress Note ---
Date of Service December 02, 2024 Assessment & Plan (1) Closed left hip fracture: Plan: 74-year-old female from [place] visiting [place] with past medical history significant for hypertension, CHF who is status post fall with left hip fracture, s/p ORIF on 11/07/24 with postop anemia and hypotension requiring transfer to the ICU. Closed left hip fracture Secondary to mechanical fall --S/P open reduction internal fixation left hip by Dr. Fitch on 11/07/2024 Left hip hematoma S/P ORIF, Non healing wound S/P incision and drainage left hip by Dr. Fitch on 11/23/2024 Postoperative acute blood loss anemia Weightbearing as tolerated left lower extremity Post operative Wound infection- left hip outside the joint -- Wound culture:E coli, Klebsiella oxytoca, [place] ornithinolytica, Porphyromonas, Pseudomonas -- appreciate ID input and recommendation Pain control as needed IV Rocephin transition to cefepime 2 g IV every 8 hours and added metronidazole 500 mg twice a day Plan to continue cefepime, metronidazole to complete 2-week course till 12/09/2024. Transition to Levaquin 750 mg daily from 12/10/24 to 12/23/24. Needs weekly CBC with differential, CMP, ESR, CRP while on IV antibiotics Will have second I&D this afternoon for ongoing collection at the site of the wound Hypotension Hypotensive Shock Pt with postop hypotensive shock requiring transfer to the ICU Required vasopressor support x2 Was on midodrine 10mg TID, hydrocortisone and florinef for adrenal support Home antihypertensives on hold Appreciate critical care, cardiology input Continue metoprolol, midodrine Increase midodrine to 10 mg TID given symptomatic hypotension Blood pressure better with midodrine Constipation KUB showed no signs of obstruction Continue bowel regimen Minimize narcotic use as able Encouraged to ambulate Will give enema today Acute Blood Loss Anemia post op, requiring 3U pRBCs CT abd/pelvis noting large hematoma Hemoglobin stable 10.8 today Monitor CBC Right lower extremity DVT Likely due to interruption of Coumadin for procedure and immobilization --Venous doppler:Small amount of DVT at the right lower extremity. No DVT seen on the left. Plan to start on low-dose heparin if okay with Ortho Transition to Coumadin as able Acute depression Feels very depressed and wanted to have some help Appreciate psychiatrist input and recommendation Plan to start duloxetine 20 mg daily after about 4 weeks to decrease the risk of bleeding She is agreeable to start duloxetine 20 mg daily after about 4 weeks (2) Chronic heart failure with preserved ejection fraction: Plan: Acute on Chronic heart failure with preserved EF Hypoxia--resolved IV Lasix discontinued Appreciate Cardiology input Continue metoprolol succinate 50 mg every morning, 25 mg every afternoon Monitor volume status closely Hold torsemide as planned for procedure tomorrow and creatinine rising Resume torsemide as able Valvular heart disease --ECHO: Moderate concentric LVH, focal thickening of basal septum with cavity obliteration at mid ventricular level. Septal motion is consistent with conduction abnormality. EF 65 to 70%. Left atrium is severely dilated. Aortic valve leaflets are moderately calcified. Mild to moderate valvular aortic stenosis. Severe mitral annular calcification. Mitral valve leaflets appear mobile. Mild mitral stenosis. Severe mitral regurgitation. --Continue current medications Follow-up with cardiology on discharge (3) Atrial fibrillation with controlled ventricular response: Plan: Atrial Fibrillation with RVR Was on IV amiodarone, then transitioned to oral amiodarone before being discontinued. Continue metoprolol succinate, digoxin IV Lopressor as needed INR 1.8 today Coumadin on hold Plan to start IV heparin if okay with Ortho IV heparin is on hold and will not be started again INR is 1.6 today and will restart Coumadin as soon as okay from the orthopedic surgeon Hypocalcemia Hypokalemia Replete electrolytes as needed Monitor Acute kidney injury Likely multifactorial: Hypotension, ATN, medications Torsemide on hold Adjust medications renally Monitor renal function Creatinine 1.3 today- stable (4) Moderate mitral regurgitation: Plan Leukocytosis Likely in setting of steroid use Resolved DVT Px: Coumadin--on hold CODE STATUS Full code Disposition Rehab when able Admission and Anticipated Discharge Date Admission Date: November 06, 2024 Subjective 12/02/2024 The patient was seen and examined in medical telemetry unit She has been stable and wants to get out of bed and get into physical therapy Will have evacuation of hematoma/collection from left hip this afternoon Denies any significant symptoms Review of Systems Review of Systems: All systems reviewed and are unremarkable except as noted below Physical Exam Physical Exam: Lying in bed without any acute distress Constitutional: well developed, well nourished, + ill appearing and + obese Eyes: PERRL, conjunctivae normal, anicteric sclerae ENMT: external ear and nose normal, oropharynx normal Neck: trachea midline, no thyromegaly Respiratory: no respiratory distress Auscultation: lungs clear to auscultation bilaterally and + diminished lung sounds ( minimal crackles at the bases) Cardiovascular: Rate/Rhythm: + irregularly irregular; not tachycardic Heart Sounds: normal S1, normal S2 and + murmur Extremities: + edema (Trace edema bilaterally) Gastrointestinal (Abdomen): Inspection/Auscultation: normal bowel sounds; abdomen not distended Percussion/Palpation: abdomen soft; abdomen nontender Musculoskeletal: Swelling of the left hip and adjoining areas of the left lower thigh and buttock. Soft with minimal tenderness on palpation Neurologic: normal touch/pain/proprioception and moves all extremities (Less movement with the left lower extremity due to fracture) Psychiatric: A+Ox3, euthymic affect Lymphatic: no cervical or axillary lymphadenopathy Results & Data Results & Data Vital Signs (Past 12 Hours) Vital Signs Temp Pulse Pulse Resp BP Pulse Ox O2 Del Method 12/02/24 12:05 36.4 C L 63 20 103/68 94 Room Air 12/02/24 10:59 36.3 C L 70 16 101/70 94 Room Air 12/02/24 08:55 Room Air 12/02/24 07:37 58 L 12/02/24 07:36 36.5 C 60 18 105/62 94 Room Air 12/02/24 03:37 36.3 C L 63 16 89/57 L 92 Room Air Laboratory Results Short CBC 12/01/24 12/02/24 Range/Units 15:54 05:24 WBC 6.66 5.77 (4.8-10.8) K/ul Hgb 11.6 L 12.0 (12.0-16.0) g/dl Hct 36.2 L 38.1 (37.0-47.0) % Plt Count 244 207 (130-400) K/uL BMP 12/02/24 05:24 Sodium 132 L Potassium 3.8 Chloride 100 Carbon Dioxide 24 BUN 29 H Creatinine 1.34 H Glucose 90 Calcium 8.3 L Medications Administered Current Inpatient Medications Atropine Sulfate (Atropine Sulfate 0.1 Mg/Ml 10ml Syr) 0.5 mg IV Q1M PRN PRN Reason: PACU Use-HR<40 &/or Bradycardi Stop: 12/02/24 21:01 Bisacodyl (Bisacodyl 10 Mg Supp) 10 mg AK DAILY PRN PRN Reason: Constipation Stop: 12/30/24 10:28 Calcium Carbonate (Calcium Carbonate 1,250 Mg/5 Ml Udc) 1,250 mg PO BID [facility] Stop: 12/12/24 08:59 Last Admin: 12/02/24 08:13 Dose: 1,250 mg Digoxin (Digoxin 0.125 Mg Tab) 0.125 mg PO DAILY@1600 [facility] Stop: 12/23/24 15:59 Last Admin: 12/01/24 16:03 Dose: 0.125 mg Docusate Sodium (Docusate Sodium 100 Mg Cap) 100 mg PO BID [facility] Stop: 12/29/24 10:59 Last Admin: 12/02/24 08:11 Dose: 100 mg Ephedrine Sulfate (Ephedrine Sulfate 50 Mg/Ml Amp) 5 mg IV Q5M PRN PRN Reason: PACU Use Only-SBP<90 mmHg Stop: 12/02/24 21:01 Fentanyl Citrate (Fentanyl Citrate Pf 100 Mcg/2 Ml Vial) 25 mcg IV Q5M PRN PRN Reason: PACU Use Only-Pain Stop: 12/02/24 21:01 Hydromorphone HCl (Hydromorphone Inj 1 Mg/Ml Syringe) 0.25 mg IV Q5M PRN PRN Reason: PACU Use Only-Pain Stop: 12/02/24 21:01 Cefepime HCl (Maxipime 2000mg) 2,000 mg in 20 mls @ 5 mls/min IV Q12H [facility]; Protocol Stop: 12/09/24 22:00 Last Admin: 12/02/24 08:11 Dose: 5 mls/min Heparin Sodium/Dextrose (Heparin 80440 Unit/500 Ml D5w) 25,000 units in 500 mls @ 0 mls/hr IV .Q0M [facility]; Protocol Stop: 12/31/24 15:29 Last Titration: 12/02/24 00:10 Dose: 0 units/hr, 0 mls/hr Lactated Ringer's (Lr) 1,000 mls @ 15 mls/hr IV .Q24H [facility] Stop: 12/05/24 12:44 Last Admin: 12/02/24 12:33 Dose: 15 mls/hr Levofloxacin (Levofloxacin 750 Mg Tab) 750 mg PO Q24H [facility] Stop: 12/23/24 23:59 Magnesium Chloride (Magnesium Chloride W/Calcium 64mg Delayed Rel Tab) 64 mg PO BID [facility] Stop: 12/27/24 08:59 Last Admin: 12/02/24 08:12 Dose: 64 mg Metoprolol Succinate (Metoprolol Succ 50mg Ext Rel Tab) 50 mg PO QAM [facility] Stop: 12/20/24 08:59 Last Admin: 12/02/24 08:12 Dose: 50 mg Metoprolol Succinate (Metoprolol Succ 25mg Ext Rel Tab) 25 mg PO HS [facility] Stop: 12/30/24 20:59 Last Admin: 12/01/24 20:33 Dose: 25 mg Metoprolol Tartrate (Metoprolol Tartrate 1 Mg/Ml Vial) 2.5 mg IV Q6 PRN PRN Reason: Tachycardia HR>110 Stop: 12/26/24 17:59 Metronidazole (Metronidazole 500 Mg Tab) 500 mg PO BID [facility]; Protocol Stop: 12/09/24 23:59 Last Admin: 12/02/24 08:12 Dose: 500 mg Midodrine (Midodrine Hcl 10 Mg Tab) 10 mg PO TID@0800,1200,1700 [facility] Stop: 12/30/24 11:59 Last Admin: 12/02/24 12:04 Dose: Not Given Nitroglycerin (Nitroglycerin Sl 0.4 Mg/Tab Tab) 0.4 mg SL Q5M PRN PRN Reason: Chest Pain Stop: 12/06/24 23:15 Ondansetron HCl (Ondansetron Inj 2 Mg/Ml 2 Ml Vial) 4 mg IV Q6H PRN PRN Reason: Nausea And Vomiting Stop: 12/28/24 09:55 Last Admin: 11/30/24 07:26 Dose: 4 mg Ondansetron HCl (Ondansetron Inj 2 Mg/Ml 2 Ml Vial) 4 mg IV ONCE PRN PRN Reason: PACU Use Only-Nausea/Vomiting Stop: 12/02/24 21:01 Oxycodone/Acetaminophen (Oxycodone/Acetaminophen 5mg/325mg Tab) 1 tab PO Q4H PRN PRN Reason: Pain Stop: 12/03/24 09:35 Last Admin: 11/30/24 08:15 Dose: 1 tab Pantoprazole Sodium (Pantoprazole 40 Mg Tab) 40 mg PO QAM [facility] Stop: 12/13/24 08:59 Last Admin: 12/02/24 08:12 Dose: 40 mg Polyethylene Glycol (Polyethylene (Miralax) 17 Gm Pack) 17 gm PO DAILY PRN PRN Reason: Constipation Stop: 12/06/24 23:15 Last Admin: 12/01/24 08:42 Dose: 17 gm Potassium Chloride (Potassium Chloride Crtab 20 Meq Tabcr) [facility] [place]: 12/20/24 08:59 Last Admin: 12/02/24 08:11 Dose: 20 meq Sennosides (Senna 8.6 Mg Tab) [facility] [place] Stop: 12/30/24 10:29 Last Admin: 12/02/24 08:11 Dose: 17.2 mg Torsemide (Torsemide 20 Mg Tab) [facility] [place] Stop: 12/19/24 08:59 Last Admin: 12/01/24 08:49 Dose: 20 mg Vitamin D (Cholecalciferol 125 Mcg (5,000 Units) Tab) 125 [facility]cg [facility] [place] Stop: 12/17/24 10:14 Last Admin: 12/02/24 08:12 Dose: 125 mcg Warfarin Sodium (Warfarin Sod 3 Mg Tab) 3 mg PO DAILY@1600 [facility] Stop: 12/28/24 15:59
[2024-12-02] MEDS: POLYETHYLENE (MIRALAX) 17 GM PACK PO SCH (15:27)
[2024-12-02] MEDS ORDERED: PHENYLEPHRINE HCL 10 MG/ML VIAL ONE (15:44)
[2024-12-02] MEDS ORDERED: SUGAMMADEX SODIUM 200 MG/2 ML VIAL IV ONE (16:46)
[2024-12-02] MEDS: TRANEXAMIC ACID 1,000 MG x 1 **TOPICAL Use Intraop TOP SCH (17:54)
[2024-12-02] MEDS: TXA 10% Non-IV Routes 100 MG/ML VIAL TOP ONE (18:07)
--- NOTE | 2024-12-02 18:07 | Post Operative Brief Note ---
Immediate Post Op Note Date of Surgery December 02, 2024 Pre & Post Diagnosis Operation Date: 12/02/24 12:50 Pre-Op Diagnosis: Postoperative wound infection, left hip Post-Op Diagnosis: Postoperative wound infection, left hip I identified the patient and participated in the time-out.: Yes Procedure Operation Date: 12/02/24 12:50 Actual Procedures p Left Repeat Incision and Drainage Hip with Wound Vac Placement(Left) - Silver Fitch MD Surgeon Silver Fitch MD Traveling Repair Accountant Wendy Kang DO & Oral Beard PA-C Estimated Blood Loss 100 Findings Consistent with Post-Op Diagnosis Fluids 800 cc Specimens Left hip Cx & S (Proximal & Distal) Drains Hemovac Drain and Other (Wound Vac) Anesthesia Type General Complications none
--- NOTE | 2024-12-02 18:10 | Operative Report ---
Post Operative Report Pre & Post Diagnosis Operation Date: 12/02/24 12:50 Pre-Op Diagnosis: Postoperative wound infection, left hip Post-Op Diagnosis: Postoperative wound infection, left hip I identified the patient and participated in the time-out.: Yes Procedure Operation Date: 12/02/24 12:50 Actual Procedures p Repeat Incision and Drainage Left Hip with Wound Vac Placement (Left) - Silver Fitch MD Surgeon Silver Fitch MD Platform Man Wendy Kang DO & Oral Beard PA-C Estimated Blood Loss 100 Findings See Below Purulent fluid, with significant necrotic fat. After I&D wound measured 18 x 12 x 6 cm and went down to the fascia. Fluids 800 cc Specimens Left hip Cx & S (Proximal & Distal) Drains Wound Vac, Silver Anesthesia Type General Complications none Indications Patient status post I&D of the left hip, following previous ORIF, who developed increased draining from her wound. Informed consent obtained for planned return to OR for I&D, wound VAC placement. Description of Procedure The patient was taken to the Operating Room and after general anesthesia was administered a multidisciplinary time-out was performed identifying my initials on the left limb as the correct and operative limb, the patient was placed in the lazy lateral position on the operating table. The patient is continue on their antibiotic regime. The sutures were removed. The left lower leg was prepped and draped in the standard sterile fashion. Preoperative antibiotics were not necessary. There was gross purulence noted and significant necrotic tissue. Two cultures were obtained. The necrotic soft tissue was removed with a combination of rongeur, Lowery, digital dissection, and versajet. The wound was irrigated with a 12 L normal saline with pulse lavage and over 1L with the Versajet. The soft tissue was now healthy appearing, with bleeding surfaces. Hemostasis was obtained and topical TXA was applied to the wound. Adaptic was applied over the Tensor fascia. A silver impregnated sponge was applied deep and a second sponge was folded on itself and placed more superficially on top of the 1st sponge. The wound VAC was applied and deployed without incident. The patient was taken recovery room in stable condition. The sponge and needle counts were correct. POST-OP: Patient was re-admitted to the Hospitalist service. Hold anticoagulation for 24 hours. Continue pain control and antibiotics. I attest to the content of the Intraoperative Record and any orders documented therein. Any exceptions are noted below.
--- NOTE | 2024-12-02 18:53 | Operative Report ---
Post Operative Report Pre & Post Diagnosis Operation Date: 12/02/24 12:50 Pre-Op Diagnosis: Postoperative wound infection left hip Post-Op Diagnosis: Postoperative wound infection left hip I identified the patient and participated in the time-out.: Yes Procedure Operation Date: 12/02/24 12:50 Actual Procedures p Left Repeat Incision and Drainage Hip with Wound Vac Placement(Left) - Silver Fitch MD Surgeon Silver Fitch MD Malt House Kiln Operator Wendy Kang DO & Oral Beard PA-C Estimated Blood Loss 100 Findings Consistent with Post-Op Diagnosis Specimens Cultures Left hip x2 Description of Procedure Patient was brought to the operative suite. Left lower extremity was prepped and draped in the usual sterile fashion. Surgical timeout performed. Patient underwent left hip repeat incision and drainage with wound VAC application. See Dr. Fitch's operative note for full details. I assisted with patient positioning. limb positioning, tissue retraction, debridement, VAC application. Patient was taken to recovery in satisfactory condition. I attest to the content of the Intraoperative Record and any orders documented therein. Any exceptions are noted below.
--- NOTE | 2024-12-02 19:34 | Communication Note ---
Date of Service: December 02, 2024 Made aware of TECHNOLOGY APPLICATIONS ENGINEER of SBP 80s to 90s postprocedure. Received phenylephrine doses as per RN. Patient without complaints. AP Postop hypotension Similar presentation following hip fracture surgery 3 weeks ago PCU transfer (instead of postop med/tele unit transfer orders) IV albumin Facilitate midodrine Decadron 1 dose (history relative adrenal insufficiency as per ICU notes from 3 weeks ago) Hold beta-jose for now ICU transfer to facilitate pressor Rx if with persistent hypotension.
[2024-12-02] MEDS: DEXAMETHASONE SOD INJ 4 MG/ML VIAL ONE (19:42)
[2024-12-02] MEDS: dexAMETHasone 4 MG in SYRINGE 0 ML IV ONE (19:42)
[2024-12-02] MEDS: MIDODRINE HCL 10 MG TAB PO STA (19:45)
[2024-12-02] MEDS ORDERED: ALBUMIN HUMAN 5% 12.5 GM/250 ML VIAL IV ONE (19:55)
[2024-12-02] MEDS: ALBUMIN 25% 25 GM/100 ML VIAL IV ONE ×2 (20:04→21:34)
[2024-12-02 20:55] LABS: Hematocrit (blood only) 34.1 % (37.0-47.0); Hemoglobin 10.9 g/dl (12.0-16.0)
--- NOTE | 2024-12-02 21:01 | Anesthesiology Progress Note ---
Date of Service December 02, 2024 Anesthesia Post Procedure Vital Signs Vital Signs: Temp Pulse Pulse Pulse Resp BP BP 12/02/24 20:46 83 18 80/54 L 12/02/24 19:45 94 H 15 89/57 L 12/02/24 19:35 83 14 73/61 L 12/02/24 19:25 88 14 75/55 L 12/02/24 19:15 90 16 98/68 L 12/02/24 19:05 89 23 74/52 L 63/46 L 12/02/24 18:55 36.6 C 87 22 92/63 L 12/02/24 18:45 92 H 17 104/58 L 12/02/24 18:35 91 H 20 81/52 L 12/02/24 18:25 87 20 96/64 L 12/02/24 18:16 36.6 C 81 25 H 86/61 L 12/02/24 12:05 36.4 C L 63 20 103/68 12/02/24 10:59 36.3 C L 70 16 101/70 12/02/24 08:55 12/02/24 07:37 58 L 12/02/24 07:36 36.5 C 60 18 105/62 12/02/24 03:37 36.3 C L 63 16 89/57 L 12/02/24 00:40 61 12/01/24 23:19 36.5 C 69 18 91/57 L 12/01/24 21:21 Pulse Ox O2 Del Method O2 Flow Rate 12/02/24 20:46 12/02/24 19:45 94 Room Air 12/02/24 19:35 96 Room Air 12/02/24 19:25 96 Room Air 12/02/24 19:15 92 Room Air 12/02/24 19:05 93 Room Air 12/02/24 18:55 96 Room Air 12/02/24 18:45 95 Oxymask 4 12/02/24 18:35 98 Oxymask 6 12/02/24 18:25 98 Oxymask 6 12/02/24 18:16 98 Oxymask 8 12/02/24 12:05 94 Room Air 12/02/24 10:59 94 Room Air 12/02/24 08:55 Room Air 12/02/24 07:37 12/02/24 07:36 94 Room Air 12/02/24 03:37 92 Room Air 12/02/24 00:40 12/01/24 23:19 93 Room Air 12/01/24 21:21 Room Air Pain Intensity Left Hip: Pain Intensity: 2 Medial Back: Pain Intensity: 4 Left Knee: Pain Intensity: 5 Left Hand: Pain Intensity: 3 Transfer of Care Handoff Completed per policy Notes Mental Status: alert / awake / arousable Patient Amnestic to Procedure: Yes Nausea / Vomiting: adequately controlled Pain: adequately controlled Airway Patency, RR, SpO2: stable & adequate BP & HR: see Notes below Hydration State: stable & adequate Anesthetic Complications: no major complications apparent Notes: BP' running low as before - responded to fluid bolus - also getting albumin and will go to PCU for closer observation but she looks great - wide awake and alert and on room air without complaint other than some back pain.
[2024-12-02 21:23] LABS: BUN Creatinine Ratio 21.2 (10-20); Calcium 8.7 mg/dl (8.6-10.3); Creatinine Clr Calc Pharmacy 39.3 ml/min; Potassium 4.7 mmol/L (3.5-5.1)
[2024-12-02] MEDS: ACETAMINOPHEN 1,000 MG/100 ML VIAL IV STA (21:33)
[2024-12-03] MEDS: ALBUMIN 25% 25 GM/100 ML VIAL IV ONE (00:48)
[2024-12-03 00:50] LABS: Base Excess VBG 2.9 mEq/L; HCO3 VBG 28 mmol/L; Oxygen Saturation VBG < 60.0 %; PCO2 VBG 43 mmHg (38-50); PO2 VBG 37 mmHg; pH VBG 7.42 (7.36-7.41)
[2024-12-03] MEDS: dexAMETHasone 4 MG in SYRINGE 0 ML IV ONE (00:58)
[2024-12-03] MEDS: ACETAMINOPHEN 325 MG TAB PO STA (00:58)
[2024-12-03] MEDS: MIDODRINE HCL 10 MG TAB PO STA (00:58)
[2024-12-03] MEDS: oxyCODONE HCL IR 5 MG TAB (IMMEDIATE RELEASE) PO PRN (01:50)
[2024-12-03 06:50] LABS: Basophils # (auto) 0.01 K/uL (0.00-0.20); Basophils % (auto) 0.2 %; Hematocrit (blood only) 26.3 % (37.0-47.0); Hemoglobin 8.3 g/dl (12.0-16.0); Immature Granulocytes # (auto) 0.21 K/uL (0.01-0.20); Immature Granulocytes % (auto) 4.2 %; Lymphocytes # (auto) 0.45 K/uL (1.20-3.40); Mean Corpuscular Hemoglobin 32.2 pg (25.0-34.0); Mean Corpuscular Hgb Conc 31.6 g/dL (32.0-36.0); Mean Corpuscular Volume 101.9 fL (80.0-100.0); Mean Platelet Volume 10.3 fL (9.4-12.4); Monocytes # (auto) 0.15 K/uL (0.11-0.59); Neutrophils % (auto) 83.6 %; Platelet Count 198 K/uL (130-400); RDW Coefficient of Variation 23.4 % (11.5-14.5); Red Blood Count 2.58 M/uL (4.20-5.40); White Blood Count 5.02 K/ul (4.8-10.8)
[2024-12-03 07:23] LABS: BUN Creatinine Ratio 24.3 (10-20); Calcium 8.7 mg/dl (8.6-10.3); Creatinine Clr Calc Pharmacy 42.8 ml/min; Magnesium 2.2 mg/dl (1.7-2.4); Potassium 4.5 mmol/L (3.5-5.1)
[2024-12-03] MEDS: LIDOCAINE 1% LOCAL 20 ML VIAL ONE (07:27)
[2024-12-03] MEDS: BUPIVACAINE/EPINEPHRINE 0.5% MPF 1:200,000 30 ML VIAL ONE (07:27)
[2024-12-03 07:40] LABS: Anisocytosis Present; Polychromasia 2+; Tear Drop Cells 1+
[2024-12-03 07:41] LABS: INR 1.4 (0.9-1.1); Prothrombin Time 14.8 Seconds (9.0-12.0)
--- NOTE | 2024-12-03 08:32 | Orthopedic Progress Note ---
Date of Service December 03, 2024 Assessment & Plan (1) Postoperative wound infection: Plan: IMPRESSION: POD #1 s/p I&D Left hip and wound vac placement, 10 days s/p I&D Left hip, with E. Coli, Klebsiella, Porphyromonas somerae, Pseudomonas aeruginosa infection, 3 weeks s/p ORIF L hip fracture, rough night but improving PLAN: Acute anemia blood loss, stable Hgb 8.3. Consult ID appreciated, continue IV Rocephin 2g IV q24h x 2 weeks, then switch to cefpodoxime 400mg PO bid for another 2 weeks due to the closeness of the orthopedic hardware, will see if any changes with new C&S results PT/OT WBAT LLE OOB to chair Continue pain control Check labs and C&S Continue Wound vac 125 mmHg continuous, with Silver foam x 2 weeks, will be changed by Wound Care team at bedside 12/05/24, then M,W,F. Continue care per primary service (2) Right leg DVT: Plan: Bilateral Doppler yesterday was positive for a small clot in the right posterior tibial vein. Patient has been receiving heparin and Coumadin however this is held today pending I&D left hip. Symptoms have improved from yesterday. She does not have any edema or redness to the lower extremities. Resume heparin and Coumadin at least 24 hours after surgery Admission and Anticipated Discharge Date Admission Date: November 06, 2024 Subjective Last night was the worst night ever, but doing better now, rates pain a 3/10. No longer c/o tingling in her foot. Physical Exam Physical Exam: LLE: NV intact. Distal incisions healing nicely, no evidence of infection. Wound vac in place and functioning, acceptable bloody drainage. calf soft and non- tender. Results & Data Vital Signs (Past 12 Hours) Vital Signs Temp Pulse Resp BP BP Pulse Ox O2 Del Method 12/03/24 06:59 36.7 C 62 17 91/57 L 100 Nasal Cannula 12/03/24 04:20 36.6 C 59 L 16 90/54 L 100 Nasal Cannula 12/03/24 03:50 100/62 12/03/24 03:20 81/52 L 12/03/24 03:15 92/59 L 12/03/24 03:00 97/66 L 12/03/24 02:45 102/67 12/03/24 02:30 92/59 L 12/03/24 02:15 106/72 12/03/24 02:00 96/67 L 12/03/24 01:45 95/62 L 12/03/24 01:30 86/56 L 12/03/24 01:15 96/60 L 12/03/24 01:00 92/60 L 12/03/24 00:45 81/48 L 12/03/24 00:30 94/62 L 12/03/24 00:15 85/54 L 87 L Room Air 12/03/24 00:00 85/52 L 12/02/24 23:58 91/60 L 12/02/24 23:58 85/55 L 12/02/24 23:58 93/60 L 12/02/24 23:58 91/57 L 12/02/24 22:58 36.4 C L 71 18 80/55 L 91 Room Air 12/02/24 22:30 80/53 L 12/02/24 22:30 80/53 L 12/02/24 22:15 92/61 L 12/02/24 22:15 92/61 L 12/02/24 22:15 92/61 L 12/02/24 22:00 96/61 L 12/02/24 21:45 78/57 L 12/02/24 21:30 97/64 L 12/02/24 21:15 93/65 L 12/02/24 21:05 75/57 L 12/02/24 20:46 83 18 80/54 L O2 Flow Rate 12/03/24 06:59 12/03/24 04:20 2 12/03/24 03:50 12/03/24 03:20 12/03/24 03:15 12/03/24 03:00 12/03/24 02:45 12/03/24 02:30 12/03/24 02:15 12/03/24 02:00 12/03/24 01:45 12/03/24 01:30 12/03/24 01:15 12/03/24 01:00 12/03/24 00:45 12/03/24 00:30 12/03/24 00:15 12/03/24 00:00 12/02/24 23:58 12/02/24 23:58 12/02/24 23:58 12/02/24 23:58 12/02/24 22:58 12/02/24 22:30 12/02/24 22:30 12/02/24 22:15 12/02/24 22:15 12/02/24 22:15 12/02/24 22:00 12/02/24 21:45 12/02/24 21:30 12/02/24 21:15 12/02/24 21:05 12/02/24 20:46 Laboratory Results 12/03/24 12/03/24 12/03/24 Range/Units 06:27 00:42 00:26 WBC 5.02 (4.8-10.8) K/ul RBC 2.58 L (4.20-5.40) M/uL Hgb 8.3 L (12.0-16.0) g/dl Hct 26.3 L (37.0-47.0) % MCV 101.9 H (80.0-100.0) fL MCH 32.2 (25.0-34.0) pg MCHC 31.6 L (32.0-36.0) g/dL RDW Std Deviation 86.0 H (36.4-46.3) fL RDW Coeff of Gifty 23.4 H (11.5-14.5) % Plt Count 198 (130-400) K/uL MPV 10.3 (9.4-12.4) fL Immature Gran % (Auto) 4.2 % Neut % (Auto) 83.6 % Lymph % (Auto) 9.0 % Bee % (Auto) 3.0 % Eos % (Auto) 0.0 % Baso % (Auto) 0.2 % Neut # (Auto) 4.20 (1.40-6.50) K/uL Lymph # (Auto) 0.45 L (1.20-3.40) K/uL Bee # (Auto) 0.15 (0.11-0.59) K/uL Eos # (Auto) 0.00 (0.00-0.50) K/uL Baso # (Auto) 0.01 (0.00-0.20) K/uL Immature Gran # (Auto) 0.21 H (0.01-0.20) K/uL Polychromasia 2+ Anisocytosis Present Tear Drop Cells 1+ PT 14.8 H (9.0-12.0) Seconds INR 1.4 H (0.9-1.1) VBG pH 7.42 H (7.36-7.41) VBG pCO2 43 (38-50) mmHg VBG pO2 37 mmHg VBG HCO3 28 mmol/L VBG O2 Saturation < 60.0 % VBG Base Excess 2.9 mEq/L Sodium 133 L (136-145) mmol/L Potassium 4.5 (3.5-5.1) mmol/L Chloride 100 (98-107) mmol/L Carbon Dioxide 24 (21-32) mmol/L Anion Gap 9 (3-11) BUN 34 H (6-23) mg/dl Creatinine 1.40 H (0.6-1.2) mg/dl Est Cr Clr Drug Dosing 42.8 ml/min eGFR 39.48 BUN/Creatinine Ratio 24.3 H (10-20) Glucose 124 H (70-99(Fasting)) mg/dl POC Glucose 160 H (70-99) mg/dl Lactate 1.6 (0.4-2.0) mmol/L Calcium 8.7 (8.6-10.3) mg/dl Magnesium 2.2 (1.7-2.4) mg/dl Ammonia 21.0 (18-72) umol/L Digoxin (0.8-2.0) ng/ml 12/02/24 12/02/24 Range/Units 20:30 18:35 WBC (4.8-10.8) K/ul RBC (4.20-5.40) M/uL Hgb 10.9 L (12.0-16.0) g/dl Hct 34.1 L (37.0-47.0) % MCV (80.0-100.0) fL MCH (25.0-34.0) pg MCHC (32.0-36.0) g/dL RDW Std Deviation (36.4-46.3) fL RDW Coeff of Gifty (11.5-14.5) % Plt Count (130-400) K/uL MPV (9.4-12.4) fL Immature Gran % (Auto) % Neut % (Auto) % Lymph % (Auto) % Bee % (Auto) % Eos % (Auto) % Baso % (Auto) % Neut # (Auto) (1.40-6.50) K/uL Lymph # (Auto) (1.20-3.40) K/uL Bee # (Auto) (0.11-0.59) K/uL Eos # (Auto) (0.00-0.50) K/uL Baso # (Auto) (0.00-0.20) K/uL Immature Gran # (Auto) (0.01-0.20) K/uL Polychromasia Anisocytosis Tear Drop Cells PT (9.0-12.0) Seconds INR (0.9-1.1) VBG pH (7.36-7.41) VBG pCO2 (38-50) mmHg VBG pO2 mmHg VBG HCO3 mmol/L VBG O2 Saturation % VBG Base Excess mEq/L Sodium 132 L (136-145) mmol/L Potassium 4.7 D (3.5-5.1) mmol/L Chloride 100 (98-107) mmol/L Carbon Dioxide 22 (21-32) mmol/L Anion Gap 10 (3-11) BUN 32 H (6-23) mg/dl Creatinine 1.51 H (0.6-1.2) mg/dl Est Cr Clr Drug Dosing 39.3 ml/min eGFR 36.05 BUN/Creatinine Ratio 21.2 H (10-20) Glucose 179 H (70-99(Fasting)) mg/dl POC Glucose 159 H (70-99) mg/dl Lactate 3.2 H* (0.4-2.0) mmol/L Calcium 8.7 (8.6-10.3) mg/dl Magnesium (1.7-2.4) mg/dl Ammonia (18-72) umol/L Digoxin 1.6 (0.8-2.0) ng/ml Source: Hip,Left OV Order: Ordered: Aer/Rin Cult/Sm Comments: CULTURE 2 LEFT HIP PROXIMAL Procedure Result Verified Site Gram Stain Final 12/02/24 Gram Stain Result Rare WBCs Seen No Organisms Seen Aero/Rin Cult PENDING (2) Right leg DVT Affected thrombotic vein of extremity: tibial Chronicity: unspecified Qualified Code(s): I82.441 - Acute embolism and thrombosis of right tibial vein
[2024-12-03] MEDS: dexAMETHasone**PF** 10 MG/ML VIAL IV ONE (10:48)
--- NOTE | 2024-12-03 14:58 | Hospitalist Progress Note ---
Date of Service December 03, 2024 Assessment & Plan (1) Closed left hip fracture: Plan: 74-year-old female from [place] visiting [place] with past medical history significant for hypertension, CHF who is status post fall with left hip fracture, s/p ORIF on 11/07/24 with postop anemia and hypotension requiring transfer to the ICU. Closed left hip fracture Secondary to mechanical fall --S/P open reduction internal fixation left hip by Dr. Fitch on 11/07/2024 Left hip hematoma S/P ORIF, Non healing wound S/P incision and drainage left hip by Dr. Fitch on 11/23/2024 Postoperative acute blood loss anemia Weightbearing as tolerated left lower extremity Has had more pain in the left hip last night but pain still seems to be controlled now Post operative Wound infection- left hip outside the joint -- Wound culture:E coli, Klebsiella oxytoca, [place]oto ornithinolytica, Porphyromonas, Pseudomonas -- appreciate ID input and recommendation Pain control as needed IV Rocephin transition to cefepime 2 g IV every 8 hours and added metronidazole 500 mg twice a day Plan to continue cefepime, metronidazole to complete 2-week course till 12/09/2024. Transition to Levaquin 750 mg daily from 12/10/24 to 12/23/24. Needs weekly CBC with differential, CMP, ESR, CRP while on IV antibiotics Will have second I&D this afternoon for ongoing collection at the site of the wound Status post I&D of the left hip wound and wound VAC placement Hypotension Hypotensive Shock Pt with postop hypotensive shock requiring transfer to the ICU Required vasopressor support x2 Was on midodrine 10mg TID, hydrocortisone and florinef for adrenal support Home antihypertensives on hold Appreciate critical care, cardiology input Continue metoprolol, midodrine Increase midodrine to 10 mg TID given symptomatic hypotension Blood pressure better with midodrine Has had significant hypotension last night and received intravenous albumin and also a dose of dexamethasone last night Blood pressure seems to be stable though on the lower side at 103/58 Constipation KUB showed no signs of obstruction Continue bowel regimen Minimize narcotic use as able Encouraged to ambulate Will give enema today Acute Blood Loss Anemia post op, requiring 3U pRBCs CT abd/pelvis noting large hematoma Hemoglobin stable 10.8 today Monitor CBC- hemoglobin is 8.4 Right lower extremity DVT Likely due to interruption of Coumadin for procedure and immobilization --Venous doppler:Small amount of DVT at the right lower extremity. No DVT seen on the left. Plan to start on low-dose heparin if okay with Ortho Transition to Coumadin as able Acute depression Feels very depressed and wanted to have some help Appreciate psychiatrist input and recommendation Plan to start duloxetine 20 mg daily after about 4 weeks to decrease the risk of bleeding She is agreeable to start duloxetine 20 mg daily after about 4 weeks (2) Chronic heart failure with preserved ejection fraction: Plan: Acute on Chronic heart failure with preserved EF Hypoxia--resolved IV Lasix discontinued Appreciate Cardiology input Continue metoprolol succinate 50 mg every morning, 25 mg every afternoon Monitor volume status closely Hold torsemide as planned for procedure tomorrow and creatinine rising Resume torsemide as able Valvular heart disease --ECHO: Moderate concentric LVH, focal thickening of basal septum with cavity obliteration at mid ventricular level. Septal motion is consistent with conduction abnormality. EF 65 to 70%. Left atrium is severely dilated. Aortic valve leaflets are moderately calcified. Mild to moderate valvular aortic stenosis. Severe mitral annular calcification. Mitral valve leaflets appear mobile. Mild mitral stenosis. Severe mitral regurgitation. --Continue current medications Follow-up with cardiology on discharge (3) Atrial fibrillation with controlled ventricular response: Plan: Atrial Fibrillation with RVR Was on IV amiodarone, then transitioned to oral amiodarone before being discontinued. Continue metoprolol succinate, digoxin IV Lopressor as needed INR 1.8 today Coumadin on hold Plan to start IV heparin if okay with Ortho IV heparin is on hold and will not be started again INR is 1.6 today and will restart Coumadin as soon as okay from the orthopedic surgeon INR is 1.4 today and will restart Coumadin todaywill not restart heparin as it caused bleeding x 2 Hypocalcemia Hypokalemia Replete electrolytes as needed Monitor Acute kidney injury Likely multifactorial: Hypotension, ATN, medications Torsemide on hold Adjust medications renally Monitor renal function Creatinine 1.4 on 12/03/2024 (4) Moderate mitral regurgitation: Plan Leukocytosis Likely in setting of steroid use Resolved DVT Px: Coumadin--on hold CODE STATUS Full code Disposition Rehab when able Admission and Anticipated Discharge Date Admission Date: November 06, 2024 Subjective 12/02/2024 The patient was seen and examined in medical telemetry unit She has been stable and wants to get out of bed and get into physical therapy Will have evacuation of hematoma/collection from left hip this afternoon Denies any significant symptoms 12/03/2024 The patient was seen and examined in telemetry unit She is status post incision and drainage left hip wound with wound VAC placement on 12/02/2024 She has had a very bad night with increasing pain 10 out of 10 and her blood pressure was dropping Received intravenous albumin also midodrine and pain medications Has been feeling better this morning and the pain is reasonably controlled Review of Systems Review of Systems: All systems reviewed and are unremarkable except as noted below Physical Exam Physical Exam: Lying in bed without any pain at the left hip looks very tired and lethargic Constitutional: well developed, well nourished, + ill appearing and + obese Eyes: PERRL, conjunctivae normal, anicteric sclerae ENMT: external ear and nose normal, oropharynx normal Neck: trachea midline, no thyromegaly Respiratory: no respiratory distress Auscultation: lungs clear to auscultation bilaterally and + diminished lung sounds ( minimal crackles at the bases) Cardiovascular: Rate/Rhythm: + irregularly irregular; not tachycardic Heart Sounds: normal S1, normal S2 and + murmur Extremities: + edema (Trace edema bilaterally) Gastrointestinal (Abdomen): Inspection/Auscultation: normal bowel sounds; abdomen not distended Percussion/Palpation: abdomen soft; abdomen nontender Musculoskeletal: Left hip wound VAC is placed and has pain with movement Neurologic: normal touch/pain/proprioception and moves all extremities (Less movement with the left lower extremity due to fracture) Psychiatric: A+Ox3, euthymic affect Lymphatic: no cervical or axillary lymphadenopathy Results & Data Results & Data Vital Signs (Past 12 Hours) Vital Signs Temp Pulse Resp BP BP Pulse Ox O2 Del Method 12/03/24 14:49 36.6 C 74 17 103/58 L 96 Room Air 12/03/24 10:57 36.6 C 72 17 100/66 92 Room Air 12/03/24 09:58 78 104/54 L 12/03/24 06:59 36.7 C 62 17 91/57 L 100 Nasal Cannula 12/03/24 04:20 36.6 C 59 L 16 90/54 L 100 Nasal Cannula 12/03/24 03:50 100/62 12/03/24 03:20 81/52 L 12/03/24 03:15 92/59 L 12/03/24 03:00 97/66 L O2 Flow Rate 12/03/24 14:49 12/03/24 10:57 12/03/24 09:58 12/03/24 06:59 12/03/24 04:20 2 12/03/24 03:50 12/03/24 03:20 12/03/24 03:15 12/03/24 03:00 Laboratory Results Short CBC 12/02/24 12/03/24 Range/Units 20:30 06:27 WBC 5.02 (4.8-10.8) K/ul Hgb 10.9 L 8.3 L (12.0-16.0) g/dl Hct 34.1 L 26.3 L (37.0-47.0) % Plt Count 198 (130-400) K/uL BMP 12/02/24 12/03/24 20:30 06:27 Sodium 132 L 133 L Potassium 4.7 D 4.5 Chloride 100 100 Carbon Dioxide 22 24 BUN 32 H 34 H Creatinine 1.51 H 1.40 H Glucose 179 H 124 H Calcium 8.7 8.7 Medications Administered Current Inpatient Medications Acetaminophen (Acetaminophen 325 Mg Tab) 650 mg PO QID PRN PRN Reason: pain/fever Stop: 01/02/25 00:41 Bisacodyl (Bisacodyl 10 Mg Supp) 10 mg AK DAILY PRN PRN Reason: Constipation Stop: 12/30/24 10:28 Calcium Carbonate (Calcium Carbonate 1,250 Mg/5 Ml Udc) 1,250 mg PO BID [facility] Stop: 12/12/24 08:59 Last Admin: 12/03/24 09:46 Dose: 1,250 mg Digoxin (Digoxin 0.125 Mg Tab) 0.125 mg PO DAILY@1600 [facility] Stop: 12/23/24 15:59 Last Admin: 12/02/24 17:55 Dose: Not Given Docusate Sodium (Docusate Sodium 100 Mg Cap) 100 mg PO BID [facility] Stop: 12/29/24 10:59 Last Admin: 12/03/24 09:42 Dose: 100 mg Hydromorphone HCl (Hydromorphone Inj 0.5 Mg/0.5 Ml Syr) 0.25 mg IV Q4H PRN PRN Reason: Pain Stop: 12/17/24 03:44 Cefepime HCl (Maxipime 2000mg) 2,000 mg in 20 mls @ 5 mls/min IV Q12H [facility]; Protocol Stop: 12/09/24 22:00 Last Admin: 12/03/24 07:48 Dose: 5 mls/min Heparin Sodium/Dextrose (Heparin 56666 Unit/500 Ml D5w) 25,000 units in 500 mls @ 0 mls/hr IV .Q0M [facility]; Protocol Stop: 12/31/24 15:29 Last Titration: 12/02/24 00:10 Dose: 0 units/hr, 0 mls/hr Levofloxacin (Levofloxacin 750 Mg Tab) 750 mg PO Q24H [facility] Stop: 12/23/24 23:59 Magnesium Chloride (Magnesium Chloride W/Calcium 64mg Delayed Rel Tab) 64 mg PO BID [facility] Stop: 12/27/24 08:59 Last Admin: 12/03/24 09:43 Dose: 64 mg Metoprolol Succinate (Metoprolol Succ 50mg Ext Rel Tab) 50 mg PO QAM [facility] Stop: 12/20/24 08:59 Last Admin: 12/02/24 08:12 Dose: 50 mg Metoprolol Succinate (Metoprolol Succ 25mg Ext Rel Tab) 25 mg PO HS [facility] Stop: 12/30/24 20:59 Last Admin: 12/01/24 20:33 Dose: 25 mg Metoprolol Tartrate (Metoprolol Tartrate 1 Mg/Ml Vial) 2.5 mg IV Q6 PRN PRN Reason: Tachycardia HR>110 Stop: 12/26/24 17:59 Metronidazole (Metronidazole 500 Mg Tab) 500 mg PO BID [facility]; Protocol Stop: 12/09/24 23:59 Last Admin: 12/03/24 09:44 Dose: 500 mg Midodrine (Midodrine Hcl 10 Mg Tab) 10 mg PO TID@0800,1200,1700 [facility] Stop: 12/30/24 11:59 Last Admin: 12/03/24 12:32 Dose: 10 mg Nitroglycerin (Nitroglycerin Sl 0.4 Mg/Tab Tab) 0.4 mg SL Q5M PRN PRN Reason: Chest Pain Stop: 12/06/24 23:15 Ondansetron HCl (Ondansetron Inj 2 Mg/Ml 2 Ml Vial) 4 mg IV Q6H PRN PRN Reason: Nausea And Vomiting Stop: 12/28/24 09:55 Last Admin: 11/30/24 07:26 Dose: 4 mg Oxycodone HCl (Oxycodone Hcl Ir 5 Mg Tab (Immediate Release)) 5 mg PO Q4H PRN PRN Reason: Pain Stop: 12/17/24 00:41 Last Admin: 12/03/24 12:32 Dose: 5 mg Pantoprazole Sodium ([facility]oprazole 40 Mg Tab) [facility] [place]: 12/13/24 08:59 Last Admin: 12/03/24 09:44 Dose: 40 mg Polyethylene Glycol (Polyethylene (Miralax) 17 Gm Pack) 17 gm PO DAILY [facility] Stop: 01/01/25 15:29 Last Admin: 12/03/24 09:41 Dose: 17 gm Potassium Chloride (Potassium Chloride Crtab 20 Meq Tabcr) 20 meq [place] [facility] [place]: 12/20/24 08:59 Last Admin: 12/03/24 09:42 Dose: 20 meq Sennosides (Senna 8.6 Mg Tab) 17.2 mg [facility] [place]: 12/30/24 10:29 Last Admin: 12/03/24 09:42 Dose: 17.2 mg Torsemide (Torsemide 20 Mg Tab) 20 [facility] [place]: 12/19/24 08:59 Last Admin: 12/01/24 08:49 Dose: 20 mg Vitamin D (Cholecalciferol 125 Mcg (5,000 Units) Tab) 125 mcg [place] [facility] [place]: 12/17/24 10:14 Last Admin: 12/03/24 09:43 Dose: 125 mcg Warfarin Sodium (Warfarin Sod 3 Mg Tab) 3 mg PO DAILY@1600 [facility] Stop: 12/28/24 15:59
[2024-12-03] MEDS: WARFARIN SOD 3 MG TAB PO SCH (17:09)
[2024-12-03] MEDS: HYDROmorphone INJ 0.5 MG/0.5 ML SYR IV PRN (17:12)
[2024-12-04 07:33] LABS: Hematocrit (blood only) 26.4 % (37.0-47.0); Hemoglobin 8.2 g/dl (12.0-16.0); Mean Corpuscular Hemoglobin 32.7 pg (25.0-34.0); Mean Corpuscular Hgb Conc 31.1 g/dL (32.0-36.0); Mean Corpuscular Volume 105.2 fL (80.0-100.0); Mean Platelet Volume 10.7 fL (9.4-12.4); Platelet Count 208 K/uL (130-400); RDW Coefficient of Variation 23.6 % (11.5-14.5); RDW Standard Deviation 90.1 fL (36.4-46.3); Red Blood Count 2.51 M/uL (4.20-5.40); White Blood Count 5.79 K/ul (4.8-10.8)
[2024-12-04 07:54] LABS: INR 1.3 (0.9-1.1); Prothrombin Time 13.5 Seconds (9.0-12.0)
[2024-12-04 07:56] LABS: Anisocytosis Present; Basophils # (auto) 0.04 K/uL (0.00-0.20); Basophils % (auto) 0.7 %; Eosinophils # (auto) 0.03 K/uL (0.00-0.50); Eosinophils % (auto) 0.5 %; Immature Granulocytes # (auto) 0.22 K/uL (0.01-0.20); Immature Granulocytes % (auto) 3.8 %; Lymphocytes # (auto) 0.92 K/uL (1.20-3.40); Lymphocytes % (auto) 15.9 %; Monocytes # (auto) 0.55 K/uL (0.11-0.59); Monocytes % (auto) 9.5 %; Neutrophils # (auto) 4.03 K/uL (1.40-6.50); Neutrophils % (auto) 69.6 %; Polychromasia 1+
[2024-12-04 08:03] LABS: Calcium 8.7 mg/dl (8.6-10.3); Potassium 4.3 mmol/L (3.5-5.1)
[2024-12-04 08:09] LABS: BUN Creatinine Ratio 27.3 (10-20); Creatinine Clr Calc Pharmacy 46.7 ml/min; Phosphorus 2.6 mg/dl (2.5-4.9)
--- NOTE | 2024-12-04 10:30 | Orthopedic Progress Note ---
Date of Service December 04, 2024 Assessment & Plan (1) Postoperative wound infection: Plan: IMPRESSION: POD #2 s/p I&D Left hip and wound vac placement, 10 days s/p I&D Left hip, with E. Coli, Klebsiella, Porphyromonas somerae, Pseudomonas aeruginosa infection, 3 weeks s/p ORIF L hip fracture, rough night but improving PLAN: Acute anemia blood loss, stable Hgb 8.2.Trending downward slightly from 8.3 yesterday Consult ID appreciated, continue IV Rocephin 2g IV q24h x 2 weeks, then switch to cefpodoxime 400mg PO bid for another 2 weeks due to the closeness of the orthopedic hardware, will see if any changes with new C&S results PT/OT WBAT LLE OOB to chair Continue pain control Check labs and C&S Continue Wound vac 125 mmHg continuous, with Silver foam x 2 weeks, will be changed by Wound Care team at bedside 12/05/24, then M,W,F. Spoke to wound care nurse Debra. She states that Preeti will be her first wound VAC change in the morning Continue care per primary service (2) Right leg DVT: Plan: Bilateral Doppler was positive for a small clot in the right posterior tibial vein. Heparin has been held and Coumadin was increased to 5 mg from previously ordered 3. Symptoms have improved from yesterday. She does not have any edema or redness to the lower extremities. Admission and Anticipated Discharge Date Admission Date: November 06, 2024 Subjective This 74-year-old female seen 2 days status post repeat irrigation debridement of left hipPostoperative wound infection following fracture fixation. Patient is in good spirits today. She states that her pain is very minimal. She reports that her hospitalist advised her that her atrial fibrillation is stable. She states she has some discomfort over the site of the surgery. She states that she is hoping this is about surgery she needs to have and is hoping to be discharged to a rehab facility to regain her strength. Currently she denies chest pain, shortness of breath, fever, chills, sweats, nausea, vomiting, diarrhea or numbness or tingling in her left lower extremity. Review of Systems Review of Systems: All systems reviewed & are unremarkable except as noted in Subjective Physical Exam Physical Exam: Left lower extremity:Wound VAC is kept in place. There is 250 mL of dark red gelatinous material in the canister. There is no drainage from the anteriormost portal sites. Patient has some minimal tenderness to palpation circumferentially around the sites. She Has difficulty performing active straight leg raise test. She is able to actively dorsi and plantarflex her foot. Patient is able to detect light sensation to touch over the pads of all digits. Her peripheral pulses are 2+. She is neurovascularly intact in the left lower extremity. Results & Data Vital Signs (Past 12 Hours) Vital Signs Temp Pulse Resp BP BP Pulse Ox O2 Del Method 12/04/24 07:16 36.3 C L 80 19 93/63 L 94 Room Air 12/04/24 03:19 36.5 C 66 18 94/59 L 95 Room Air Diagnostic Findings Laboratory Results WBC 5.79 K/ul (4.8-10.8) 12/04/24 06:40 RBC 2.51 M/uL (4.20-5.40) L 12/04/24 06:40 Hgb 8.2 g/dl (12.0-16.0) L 12/04/24 06:40 POC Hgb 7.1 g/dl (12.0-16.0) L 11/08/24 04:19 Hct 26.4 % (37.0-47.0) L 12/04/24 06:40 POC Hct 21 % (37-47) L 11/08/24 04:19 MCV 105.2 fL (80.0-100.0) H 12/04/24 06:40 MCH 32.7 pg (25.0-34.0) 12/04/24 06:40 MCHC 31.1 g/dL (32.0-36.0) L 12/04/24 06:40 RDW Std Deviation 90.1 fL (36.4-46.3) H 12/04/24 06:40 RDW Coeff of Gifty 23.6 % (11.5-14.5) H 12/04/24 06:40 Plt Count 208 K/uL (130-400) 12/04/24 06:40 MPV 10.7 fL (9.4-12.4) 12/04/24 06:40 Immature Gran % (Auto) 3.8 % 12/04/24 06:40 Neut % (Auto) 69.6 % 12/04/24 06:40 Lymph % (Auto) 15.9 % 12/04/24 06:40 [place] % (Auto) 9.5 % 12/04/24 06:40 Eos % (Auto) 0.5 % 12/04/24 06:40 Baso % (Auto) 0.7 % 12/04/24 06:40 Neut # (Auto) 4.03 K/uL (1.40-6.50) 12/04/24 06:40 Lymph # (Auto) 0.92 K/uL (1.20-3.40) L 12/04/24 06:40 [place] # (Auto) 0.55 K/uL (0.11-0.59) 12/04/24 06:40 Eos # (Auto) 0.03 K/uL (0.00-0.50) 12/04/24 06:40 Baso # (Auto) 0.04 K/uL (0.00-0.20) 12/04/24 06:40 Immature Gran # (Auto) 0.22 K/uL (0.01-0.20) H 12/04/24 06:40 Absolute Nucleated RBC 0.02 K/uL (0.00-0.12) 11/28/24 05:51 Nucleated RBC % (auto) 0.5 % 11/28/24 05:51 Neutrophils % (Manual) 73 % 11/17/24 06:24 Lymphocytes % (Manual) 15 % 11/17/24 06:24 Monocytes % (Manual) 3 % 11/17/24 06:24 Eosinophils % (Manual) 1 % 11/17/24 06:24 Basophils % (Manual) 1 % 11/14/24 04:38 Metamyelocytes % (Man) 5 % 11/17/24 06:24 Myelocytes % (Man) 3 % 11/17/24 06:24 Promyelocytes % (Man) 1 % 11/14/24 04:38 Blast Cells % (Manual) 1 % 11/16/24 05:52 Neutrophils # (Manual) 10.71 K/uL (1.40-6.50) H 11/17/24 06:24 Total Absolute Neuts 10.71 K/uL (1.4-6.5) H 11/17/24 06:24 Lymphocytes # (Manual) 2.20 K/uL (1.2-3.4) 11/17/24 06:24 Total Abs Lymphocytes 2.20 K/uL (1.2-3.4) 11/17/24 06:24 Monocytes # (Manual) 0.44 K/uL (0.11-0.59) 11/17/24 06:24 Eosinophils # (Manual) 0.15 K/uL (0-0.50) 11/17/24 06:24 Basophils # (Manual) 0.15 K/uL (0-0.2) 11/14/24 04:38 Metamyelocytes # (Man) 0.73 K/uL (0-0) H 11/17/24 06:24 Myelocytes # (Manual) 0.44 K/uL (0-0) H 11/17/24 06:24 Promyelocytes # (Man) 0.15 K/uL (0-0) H 11/14/24 04:38 Blast Cells # (Man) 0.18 K/uL (0-0) H 11/16/24 05:52 Platelet Estimate Decreased (Normal) L 11/09/24 04:09 RBC Morphology Unremarkable 11/08/24 04:27 Polychromasia 1+ 12/04/24 06:40 Basophilic Stippling 1+ 11/13/24 04:46 Anisocytosis Present 12/04/24 06:40 Tear Drop Cells 1+ 12/03/24 06:27 Ovalocytes 1+ 11/24/24 06:34 ESR 34 mm/hr (0-30) H 11/26/24 04:43 PT 13.5 Seconds (9.0-12.0) H 12/04/24 06:40 INR 1.3 (0.9-1.1) H 12/04/24 06:40 APTT 33 Seconds (21-31) H 12/01/24 15:54 PTT Ratio 1.2 12/01/24 15:54 Heparin Anti-Xa, Unfract < 0.10 IU/ml (0.3-0.7) L 12/01/24 22:23 Specimen Type Arterial 11/08/24 04:19 Sample Site Art Line 11/08/24 04:19 POC pH 7.36 (7.35-7.45) 11/08/24 04:19 POC pCO2 38 mmHg (35-46) 11/08/24 04:19 POC pO2 21 mmHg (80-95) L 11/08/24 04:19 POC HCO3 22 john/L (19-24) 11/08/24 04:19 POC Total CO2 23 mmol/L (24-31) L 11/08/24 04:19 POC Base Excess -4.0 john/L (-9-1.8) 11/08/24 04:19 O2 Sat Pulse Oximetry 100 11/08/24 04:19 ABG pH (Temp Correct) 7.364 (7.35-7.45) 11/08/24 04:19 ABG pCO2 (Temp Corrct 38 mmHg (35-46) 11/08/24 04:19 POC ABG pO2 at Pt Temp 20 11/08/24 04:19 POC ABG O2 Sat 33.0 % (90-95) L 11/08/24 04:19 Moe Test NA 11/08/24 04:19 VBG pH 7.42 (7.36-7.41) H 12/03/24 00:42 VBG pCO2 43 mmHg (38-50) 12/03/24 00:42 VBG pO2 37 mmHg 12/03/24 00:42 VBG HCO3 28 mmol/L 12/03/24 00:42 VBG O2 Saturation < 60.0 % 12/03/24 00:42 VBG Base Excess 2.9 mEq/L 12/03/24 00:42 O2 Delivery Device Cannula 11/08/24 04:19 POC Sodium 138 mmol/L (135-144) 11/08/24 04:19 Sodium 132 mmol/L (136-145) L 12/04/24 06:40 POC Potassium 3.7 mmol/L (3.3-5.0) 11/08/24 04:19 Potassium 4.3 mmol/L (3.5-5.1) 12/04/24 06:40 Chloride 100 mmol/L (98-107) 12/04/24 06:40 Carbon Dioxide 23 mmol/L (21-32) 12/04/24 06:40 Anion Gap 9 (3-11) 12/04/24 06:40 BUN 35 mg/dl (6-23) H 12/04/24 06:40 Creatinine 1.28 mg/dl (0.6-1.2) H 12/04/24 06:40 Est Cr Clr Drug Dosing 46.7 ml/min 12/04/24 06:40 eGFR 43.96 12/04/24 06:40 BUN/Creatinine Ratio 27.3 (10-20) H 12/04/24 06:40 Glucose 92 mg/dl (70-99(Fasting)) 12/04/24 06:40 POC Glucose 160 mg/dl (70-99) H 12/03/24 00:42 Estimat Average Glucose 100 mg/dl 11/07/24 05:44 Hemoglobin A1c 5.1 % (4.5-5.6) 11/07/24 05:44 Lactate 1.6 mmol/L (0.4-2.0) 12/03/24 00:26 Calcium 8.7 mg/dl (8.6-10.3) 12/04/24 06:40 Ionized Calcium 1.14 mmol/L (1.12-1.32) 11/11/24 03:59 Phosphorus 2.6 mg/dl (2.5-4.9) 12/04/24 06:40 Magnesium 2.2 mg/dl (1.7-2.4) 12/03/24 06:27 Iron 46 mcg/dl (35-150) 11/26/24 04:43 TIBC 307 mcg/dl (250-450) 11/26/24 04:43 Transferrin 219 mg/dl (200-360) 11/26/24 04:43 Transferrin % Sat 15 % (15-50) 11/26/24 04:43 Total Bilirubin 2.5 mg/dl (0.2-1.0) H 11/19/24 05:24 AST 39 U/L (13-39) 11/19/24 05:24 ALT 35 U/L (7-52) 11/19/24 05:24 Alkaline Phosphatase 56 U/L (34-104) 11/19/24 05:24 Ammonia 21.0 umol/L (18-72) 12/03/24 00:42 Total Creatine Kinase 27 U/L (26-192) 11/07/24 05:44 Troponin I High Sens 19.3 pg/ml (0-14) H 11/26/24 07:48 C-Reactive Protein 9.63 mg/dl (0-0.5) H 11/26/24 04:43 B-Natriuretic Peptide 471 pg/ml (0-100) H 11/08/24 08:37 Total Protein 5.9 gm/dl (6.0-8.3) L 11/19/24 05:24 Albumin 3.0 gm/dl (3.4-5.0) L 11/30/24 06:08 Globulin 2.7 gm/dl (2.5-4.0) 11/19/24 05:24 Albumin/Globulin Ratio 1.2 (0.9-2) 11/19/24 05:24 Prealbumin 10.1 mg/dl (20-40) L 11/24/24 06:34 Vitamin B12 737 pg/ml (180-914) 11/26/24 04:43 25-OH Vitamin D Total 51.9 ng/ml (30-100) 11/24/24 06:34 Folate 11.43 ng/ml (>5.38) 11/26/24 04:43 Random Cortisol 19.25 mcg/dl 11/30/24 06:08 Nasal Screen MRSA (PCR) Negative (Negative) 11/07/24 Unknown Digoxin 1.6 ng/ml (0.8-2.0) 12/02/24 20:30 Hepatitis C Ab Screen Negative (Negative) 11/06/24 19:57 Blood Type A Positive 11/08/24 11:33 Blood Type Recheck A Positive 11/08/24 10:59 Antibody Screen NEGATIVE 11/08/24 11:33 Crossmatch See Detail 11/08/24 11:33 Impressions Hip/Pelvis X-Ray 11/06/24 20:00 Exam(s): XR HIP + PELVIS, 1 view EXAM: XR Left Hip With Pelvis When Performed, 2 or 3 Views CLINICAL HISTORY: Reason for exam: Hip fracture. TECHNIQUE: Two or three views of the left hip with pelvis when performed. COMPARISON: No relevant prior studies available. IMPRESSION: Limited views. There is an acute intertrochanteric fracture of the proximal left femur with mild displacement. Advanced degenerative arthropathy is noted at the left hip joint. 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 Fluoroscopy time: 4 minutes and 41 seconds. Number of fluoroscopic images: 6. Ka,r: 87.18 mGy. FINDINGS: Fluoroscopy was provided during open reduction and internal fixation of the intertrochanteric fracture of the left femur with trochanteric nail. Fracture alignment has improved. Distal screws are present. Linear radiodensities project over the operative bed are likely on the patient. Severe left hip osteoarthritis incidentally noted. IMPRESSION: Fluoroscopy provided during open reduction and internal fixation of the intertrochanteric fracture of the left femur. ACT 112: Negative or not required by law. Electronically signed by: Wilfredo Corbett M.D. 11/08/2024 12:[address] 11/08/24 11:21 EXAM: CT Pelvis With Intravenous Contrast INDICATION: Rule out bleed TECHNIQUE: Axial computed tomography images of the pelvis with intravenous contrast. Sagittal and coronal reformatted images were created and reviewed. This CT exam was performed using one or more of the following dose reduction techniques: automated exposure control, adjustment of the mA and/or kV according to patient size, and/or use of iterative reconstruction technique. CONTRAST: 94ml of Optiray 320 was administered intravenously. COMPARISON: No relevant prior studies available. FINDINGS: Bowel: No abnormality noted. No obstruction. No mucosal thickening. Appendix: No findings to suggest acute appendicitis. Intraperitoneal space: No free air. No significant fluid collection. Bladder: No filling defects to suggest mass or large stone. No inflammation. Reproductive: No significant abnormality noted. Bones/joints: There is an acute intertrochanteric fracture of the left femur with slight displacement. Long femoral nail with proximal and distal locking hardware well-seated and intact. Severe degenerative change of the left hip noted. Soft tissues: Large irregular subcutaneous hematoma extends from the level of the upper aspect of the left gluteal musculature to the lateral skin surface inferiorly tracking within and along the gluteal musculature predominantly in the subcutaneous fat terminating posterior level of the proximal femoral shaft. Moderate amounts of associated gas present. The skin surface is not completely included. There are areas of acute hemorrhage in the lateral aspect of the hematoma (see images series 6 [id number]. Most confluent area of hematoma measures maximal transverse diameter of 10 cm, AP diameter of 8.1 cm. Maximum length is roughly 17.4 cm. There is generalized subcutaneous contusion and gas. There is gas along the gluteal musculature. There is subcutaneous edema and scattered gas along the lateral aspect of the femur. Vasculature: No abnormality noted. No lower abdominal aortic aneurysm. Lymph nodes: No abnormality noted. No enlarged lymph nodes. IMPRESSION: 1. Large predominantly subcutaneous but partially gluteal hematoma with areas of active bleeding as above. There is generalized edema of the left lower extremity. 2. Internally fixed acute fracture of the intertrochanteric left femur. ACT 112: N/A Electronically signed by Ana Paula Stock 11-08-2024 13:[address] 11/08/24 11:21 EXAM: CT Pelvis With Intravenous Contrast INDICATION: Evaluate for bleeding TECHNIQUE: Axial computed tomography images of the pelvis with intravenous contrast. Sagittal and coronal reformatted images were created and reviewed. This CT exam was performed using one or more of the following dose reduction techniques: automated exposure control, adjustment of the mA and/or kV according to patient size, and/or use of iterative reconstruction technique. CONTRAST: 94ml of Optiray 320 was administered intravenously. COMPARISON: No relevant prior studies available. FINDINGS: Bones/joints: There is an acute nondisplaced fracture of the posterior aspect of the left inferior pubic ramus. There is an acute intertrochanteric fracture of the left femur with lateral displacement. Long femoral nail with proximal locking bolt well-seated and intact. Severe primary osteoarthritic change of the left hip noted. Soft tissues: There is diffuse subcutaneous contusion and hematoma beginning at the level of the upper gluteal musculature and partially involving the anterior gluteal muscular mass. Extensive subcutaneous gas noted. Areas of acute hemorrhage noted in the lateral aspect of the hematoma (series 4 images [id number] 20). Bladder: No filling defects to suggest mass or large stone. No inflammation. IMPRESSION: 1. Acute intertrochanteric fracture of the left femur with the visualized portion of the internal fixation hardware intact and well-seated. 2. Large predominantly subcutaneous hematoma from the upper left gluteal region to the proximal posterior left femur with areas of active bleeding as above. 3. There is an acute nondisplaced fracture of the posterior aspect of the left inferior pubic ramus. ACT 112: N/A Electronically signed by Ana Paula Stock 11-08-2024 2:02 PM Abdomen/Pelvis CT 11/08/24 11:26 EXAM: CT Abdomen and Pelvis With Intravenous Contrast INDICATION: Evaluate for bleeding TECHNIQUE: Axial computed tomography images of the abdomen and pelvis with intravenous contrast. Sagittal and coronal reformatted images were created and reviewed. This CT exam was performed using one or more of the following dose reduction techniques: automated exposure control, adjustment of the mA and/or kV according to patient size, and/or use of iterative reconstruction technique. CONTRAST: 93 ml of Optiray 320 was administered intravenously. COMPARISON: No relevant prior studies available. FINDINGS: Limitations: Portions of the right subcostal chest wall and upper abdominal wall not included. Lung bases and pleural space: Heart: Cardiomegaly. Small pericardial effusion noted. Dense mitral annular calcification is noted. Mediastinum: No abnormality noted. ABDOMEN: Liver: Normal size and contour. Hypodense typical of steatosis. No mass or ductal dilation. Gallbladder and bile ducts: Cholecystectomy. No ductal dilation or stone noted. Pancreas: Homogeneous enhancement. No mass, inflammation or ductal dilation. Spleen: No significant abnormality noted. Adrenals: Mild bilateral thickening. No measurable mass. Kidneys and ureters: There is a ill-defined hypodense area in the left renal midpole measuring approximately 2.7 x 1.4 x 0.9 cm. The right kidney appears normal. Stomach and bowel: No distension or mucosal thickening. No inflammation noted. PELVIS: Appendix: No findings to suggest acute appendicitis. Bladder: Gutierrez balloon inflated in the bladder which is collapsed and cannot be assessed. Reproductive: No abnormalities noted. ABDOMEN and PELVIS: Intraperitoneal space: No free air. No significant fluid collection. Bones/joints: Acute internally fixed left intertrochanteric femoral fracture noted. Degenerative changes present throughout the spine. There is moderate to severe degenerative change of the hips left greater than right. Soft tissues: There is a large hematoma and gas collection extending from the upper aspect of the left gluteal musculature tapering to the level of the proximal femur measuring maximal transverse dimension at the most confluent point of 11.9 cm in AP diameter of 7.3 cm. There is a small focus of acute hemorrhage in the lateral aspect of the hematoma at the level of the supra-acetabular iliac bone series 3 image 257/367. There is generalized surrounding subcutaneous contusion. Vasculature: Atherosclerotic calcification of the aorta and branches. No aneurysm. Lymph nodes: No pathologically enlarged lymph nodes. IMPRESSION: 1. Large subcutaneous hematoma extending from the upper left gluteal region to the proximal posterior left femur as above with small focus of acute hemorrhage in the lateral aspect of the hematoma. 2. Small bilateral pleural effusions and dependent atelectasis. 3. Ill-defined hypodensity left kidney could be a mass or a hyperdense cyst. Sonographic assessment is recommended when able. ACT 112: N/A Electronically signed by Ana Paula Stock 11-08-2024 13:54 PM Renal Ultrasound 11/14/24 08:50 RENAL ULTRASOUND HISTORY: f/u CT, left kidney lesion COMPARISON: CT 11/08/2024 FINDINGS: Limited study secondary to patient body habitus. Right kidney: 10.2 cm. No hydronephrosis. Normal corticomedullary differentiation and cortical thickness. Left kidney: 10.8 cm. Ill-defined hypoechoic lesion within the midpole left kidney demonstrates no definite color flow measuring 1.4 x 1.4 x 0.9 cm and appears to represent a complex septated cyst. No hydronephrosis. Normal corticomedullary differentiation and cortical thickness. Bladder: No bladder wall thickening. The bilateral ureteral jets are not identified. 1.3 cm splenule again noted. IMPRESSION: 1. Limited exam secondary to patient body habitus. 2. 1.4 cm lesion within the midpole left kidney favors a complex cyst, however is suboptimally evaluated. A precautionary MRI of the abdomen with and without IV contrast utilizing renal protocol recommended to further evaluate. 3. No hydronephrosis. ACT 112: Negative or not required by law. Electronically signed by: Vimal Altamirano M.D. 11/14/2024 11:05 AM Pelvis CTA 11/22/24 08:32 EXAM: CT Angiography Abdomen and Pelvis Without and With Intravenous Contrast INDICATION: Assess for active bleeding. TECHNIQUE: Axial computed tomographic angiography images of the abdomen and pelvis without and with intravenous contrast. Sagittal and coronal reformatted images were created and reviewed. This CT exam was performed using one or more of the following dose reduction techniques: automated exposure control, adjustment of the mA and/or kV according to patient size, and/or use of iterative reconstruction technique. MIP reconstructed images were created and reviewed. CONTRAST: 118ml of Optiray 320 was administered intravenously. COMPARISON: CT abdomen pelvis 11/08/2024 FINDINGS: VASCULATURE: Aorta: Atherosclerotic calcification of the aorta and branches. No aneurysm. Celiac trunk and mesenteric arteries: No acute change noted. No occlusion or significant stenosis. Renal arteries: No acute change noted. No occlusion or significant stenosis. Iliac arteries: No acute change noted. No occlusion or significant stenosis. Lung bases: See below. Pleural space: Increased small bilateral layering pleural effusions and bilateral lower lobe dependent atelectasis. Heart: Stable cardiomegaly. Dense mitral annular calcification. No pericardial effusion. ABDOMEN: Liver: No abnormality noted. No mass. Gallbladder and bile ducts: Cholecystectomy. No ductal dilation or stone noted. Pancreas: No abnormality noted. No ductal dilation. No mass. Spleen: No abnormality noted. No splenomegaly. Adrenals: No abnormality noted. No mass. Kidneys and ureters: Stable 2 mm nonobstructing left kidney stone. Right kidney appears normal. Stomach and bowel: No abnormality noted. No obstruction. No mucosal thickening. PELVIS: Appendix: No findings to suggest acute appendicitis. Bladder: There is a small amount of air in the urinary bladder. Previously seen Gutierrez catheter no longer present. No stones. Reproductive: No significant abnormality noted. ABDOMEN and PELVIS: Intraperitoneal space: There is a small amount of layering fluid in the presacral space. No abscess or free air. Bones/joints: Internally fixed intertrochanteric fracture of the left femur noted. Visualized portion of the hardware well-seated. There is severe arthritic change of the left hip. Mild degenerative changes right hip. There is accentuated lumbar lordosis and diffuse facet arthrosis and mild spondylosis. Soft tissues: There is irregular gas, subcutaneous hematoma and generalized contusional changes in the subcutaneous fat lateral to the left hip. No acute extravasation identified. The area in total a measures greatest transverse diameter of approximately 1 and 11 cm transverse by 16 cm long. 5 9 cm AP. There is increased conspicuity of subcutaneous contusion in the right lateral pannus. Lymph nodes: No abnormality noted. No enlarged lymph nodes. IMPRESSION: 1. Hematoma and generalized subcutaneous contusion lateral to the left hip as above. No active extravasation noted. 2. Increased small layering pleural effusions and bilateral lower lobe compressive atelectasis. ACT 112: N/A Electronically signed by Ana Paula Stock 11-22-2024 09:49 AM Chest X-Ray 11/26/24 09:56 XR chest 1V portable CLINICAL HISTORY: shortness of breath COMPARISON STUDY: 11/16/2024 FINDINGS: There is stable prominent cardiomegaly with pulmonary vascular congestion. Stable diffuse pulmonary interstitial prominence. Stable hazy opacity in the lung bases with obscuration of the diaphragm and blunting of the costophrenic angles. IMPRESSION: Stable CHF with small bilateral pleural effusions and associated lung base consolidation. ACT 112: Negative or not required by law. Electronically signed by: Chan Limon M.D. 11/26/2024 10:24 AM KUB X-Ray 11/30/24 09:19 2 views of the abdomen were obtained Comparison is made to the CT dated 11/22/2024 Findings: There is constipation with prominent stool within the rectum. There is no definite sign of bowel obstruction. There are surgical clips in the right upper quadrant. No definite renal or ureteral calculi are seen. There is severe left hip osteoarthritis. There is internal fixation of the left femur. There is an unchanged displaced greater trochanter fracture fragment that could be acute or subacute. There is lumbar scoliosis and degenerative disc disease Impression: 1. Constipation 2. Unchanged left femoral neck fracture, internal fixation of the left femur, and severe left hip osteoarthritis ACT 112: Positive. There are findings on this exam that require communication between the performing entity and the patient following Patient Test Result Information Act ([place] ACT 112) guidelines. Electronically signed by Vladimir Dickson 11-30-2024 10:07 AM Venous Doppler Study 12/01/24 10:45 BILATERAL LOWER EXTREMITY VENOUS DOPPLER HISTORY: bilateral worsening calf pain, L>R, r/o BL DVT COMPARISON STUDY: None FINDINGS: There is a small amount of thrombus at the posterior tibial vein on the right. No other evidence of DVT seen at either lower extremity. There is a likely small Myers's cyst on the left. IMPRESSION: Small amount of DVT at the right lower extremity. No DVT seen on the left. ACT 112: Negative or not required by law. Electronically signed by: Chan Limon M.D. 12/01/2024 12:03 PM (2) Right leg DVT Affected thrombotic vein of extremity: tibial Chronicity: unspecified Qualified Code(s): I82.441 - Acute embolism and thrombosis of right tibial vein
--- NOTE | 2024-12-04 13:24 | Hospitalist Progress Note ---
Date of Service December 04, 2024 Assessment & Plan (1) Closed left hip fracture: Plan: 74-year-old female from [place] visiting [place] with past medical history significant for hypertension, CHF who is status post fall with left hip fracture, s/p ORIF on 11/07/24 with postop anemia and hypotension requiring transfer to the ICU. Closed left hip fracture Secondary to mechanical fall --S/P open reduction internal fixation left hip by Dr. Fitch on 11/07/2024 Left hip hematoma S/P ORIF, Non healing wound S/P incision and drainage left hip by Dr. Fitch on 11/23/2024 Postoperative acute blood loss anemia Weightbearing as tolerated left lower extremity Has had more pain in the left hip last night but pain still seems to be controlled now Post operative Wound infection- left hip outside the joint -- Wound culture:E coli, Klebsiella oxytoca, Soto ornithinolytica, Porphyromonas, Pseudomonas -- appreciate ID input and recommendation Pain control as needed IV Rocephin transition to cefepime 2 g IV every 8 hours and added metronidazole 500 mg twice a day Plan to continue cefepime, metronidazole to complete 2-week course till 12/09/2024. Transition to Levaquin 750 mg daily from 12/10/24 to 12/23/24. Needs weekly CBC with differential, CMP, ESR, CRP while on IV antibiotics Will have second I&D this afternoon for ongoing collection at the site of the wound Status post I&D of the left hip wound and wound VAC placement Wound VAC is in situ on the left hip and managed by Ortho and wound care nurse Pain in the left hip is reasonably controlled Hypotension Hypotensive Shock Pt with postop hypotensive shock requiring transfer to the ICU Required vasopressor support x2 Was on midodrine 10mg TID, hydrocortisone and florinef for adrenal support Home antihypertensives on hold Appreciate critical care, cardiology input Continue metoprolol, midodrine Increase midodrine to 10 mg TID given symptomatic hypotension Blood pressure better with midodrine Has had significant hypotension last night and received intravenous albumin and also a dose of dexamethasone last night Blood pressure seems to be stable though on the lower side at 103/58 Will start with smaller doses of beta-jose Constipation KUB showed no signs of obstruction Continue bowel regimen Minimize narcotic use as able Encouraged to ambulate Will give enema today Acute Blood Loss Anemia post op, requiring 3U pRBCs CT abd/pelvis noting large hematoma Hemoglobin stable 10.8 today Monitor CBC- hemoglobin is 8.4 Right lower extremity DVT Likely due to interruption of Coumadin for procedure and immobilization --Venous doppler:Small amount of DVT at the right lower extremity. No DVT seen on the left. Plan to start on low-dose heparin if okay with Ortho Transition to Coumadin as able-has been getting Coumadin Acute depression Feels very depressed and wanted to have some help Appreciate psychiatrist input and recommendation Plan to start duloxetine 20 mg daily after about 4 weeks to decrease the risk of bleeding She is agreeable to start duloxetine 20 mg daily after about 4 weeks (2) Chronic heart failure with preserved ejection fraction: Plan: Acute on Chronic heart failure with preserved EF Hypoxia--resolved IV Lasix discontinued Appreciate Cardiology input Continue metoprolol succinate 50 mg every morning, 25 mg every afternoon Monitor volume status closely Hold torsemide as planned for procedure tomorrow and creatinine rising Resume torsemide as able Valvular heart disease --ECHO: Moderate concentric LVH, focal thickening of basal septum with cavity obliteration at mid ventricular level. Septal motion is consistent with conduction abnormality. EF 65 to 70%. Left atrium is severely dilated. Aortic valve leaflets are moderately calcified. Mild to moderate valvular aortic stenosis. Severe mitral annular calcification. Mitral valve leaflets appear mobile. Mild mitral stenosis. Severe mitral regurgitation. --Continue current medications Follow-up with cardiology on discharge (3) Atrial fibrillation with controlled ventricular response: Plan: Atrial Fibrillation with RVR Was on IV amiodarone, then transitioned to oral amiodarone before being discontinued. Continue metoprolol succinate, digoxin IV Lopressor as needed INR 1.8 today Coumadin on hold Plan to start IV heparin if okay with Ortho IV heparin is on hold and will not be started again INR is 1.6 today and will restart Coumadin as soon as okay from the orthopedic surgeon INR is 1.4 today and will restart Coumadin todaywill not restart heparin as it caused bleeding x 2 INR is 1.3 today and will increase Coumadin to 5 mg Heart rate is going up and it is 109 as of now and will restart Toprol with a smaller dose Hypocalcemia Hypokalemia Replete electrolytes as needed Monitor Acute kidney injury Likely multifactorial: Hypotension, ATN, medications Torsemide on hold Adjust medications renally Monitor renal function Creatinine 1.4 on 12/03/2024 (4) Moderate mitral regurgitation: Plan Leukocytosis Likely in setting of steroid use Resolved DVT Px: Coumadin--on hold CODE STATUS Full code Disposition Rehab when able Admission and Anticipated Discharge Date Admission Date: November 06, 2024 Subjective 12/02/2024 The patient was seen and examined in medical telemetry unit She has been stable and wants to get out of bed and get into physical therapy Will have evacuation of hematoma/collection from left hip this afternoon Denies any significant symptoms 12/03/2024 The patient was seen and examined in telemetry unit She is status post incision and drainage left hip wound with wound VAC placement on 12/02/2024 She has had a very bad night with increasing pain 10 out of 10 and her blood pressure was dropping Received intravenous albumin also midodrine and pain medications Has been feeling better this morning and the pain is reasonably controlled 12/04/2024 The patient was seen and examined in telemetry unit She has been feeling little better today and the blood pressure is maintaining Heart rate seems to be going up and will restart metoprolol Pain is controlled denies any fever and/or chills, any nausea no vomiting Review of Systems Review of Systems: All systems reviewed and unremarkable except as noted below Physical Exam Physical Exam: Lying in bed without any pain at the left hip looks very tired and lethargic Constitutional: well developed, well nourished, + ill appearing and + obese Eyes: PERRL, conjunctivae normal, anicteric sclerae ENMT: external ear and nose normal, oropharynx normal Neck: trachea midline, no thyromegaly Respiratory: no respiratory distress Auscultation: lungs clear to auscultation bilaterally and + diminished lung sounds ( minimal crackles at the bases) Cardiovascular: Rate/Rhythm: + irregularly irregular; not tachycardic Heart Sounds: normal S1, normal S2 and + murmur Extremities: + edema (Trace edema bilaterally) Gastrointestinal (Abdomen): Inspection/Auscultation: normal bowel sounds; a bdomen not distended Percussion/Palpation: abdomen soft; abdomen nontender Musculoskeletal: Wound VAC is placed on the left hip area and movement of the left hip is painful Neurologic: normal touch/pain/proprioception and moves all extremities (Less movement with the left lower extremity due to fracture) Psychiatric: A+Ox3, euthymic affect Lymphatic: no cervical or axillary lymphadenopathy Results & Data Results & Data Vital Signs (Past 12 Hours) Vital Signs Temp Pulse Resp BP BP Pulse Ox O2 Del Method 12/04/24 11:51 36.8 C 109 H 20 102/67 95 Room Air 12/04/24 08:00 Room Air 12/04/24 07:16 36.3 C L 80 19 93/63 L 94 Room Air 12/04/24 03:19 36.5 C 66 18 94/59 L 95 Room Air Laboratory Results Short CBC 12/04/24 Range/Units 06:40 WBC 5.79 (4.8-10.8) K/ul Hgb 8.2 L (12.0-16.0) g/dl Hct 26.4 L (37.0-47.0) % Plt Count 208 (130-400) K/uL BMP 12/04/24 06:40 Sodium 132 L Potassium 4.3 Chloride 100 Carbon Dioxide 23 BUN 35 H Creatinine 1.28 H Glucose 92 Calcium 8.7 Medications Administered Current Inpatient Medications Acetaminophen (Acetaminophen 325 Mg Tab) 650 mg PO QID PRN PRN Reason: pain/fever Stop: 01/02/25 00:41 Bisacodyl (Bisacodyl 10 Mg Supp) 10 mg [place] DAILY PRN PRN Reason: Constipation Stop: 12/30/24 10:28 Calcium Carbonate (Calcium Carbonate 1,250 Mg/5 Ml Udc) 1,250 mg PO BID [facility] Stop: 12/12/24 08:59 Last Admin: 12/04/24 09:14 Dose: 1,250 mg Digoxin (Digoxin 0.125 Mg Tab) 0.125 mg PO DAILY@1600 [facility] Stop: 12/23/24 15:59 Last Admin: 12/03/24 17:10 Dose: 0.125 mg Docusate Sodium (Docusate Sodium 100 Mg Cap) 100 mg PO BID [facility] Stop: 12/29/24 10:59 Last Admin: 12/04/24 09:22 Dose: 100 mg Hydromorphone HCl (Hydromorphone Inj 0.5 Mg/0.5 Ml Syr) 0.25 mg IV Q4H PRN PRN Reason: Pain Stop: 12/17/24 03:44 Last Admin: 12/03/24 17:12 Dose: 0.25 mg Cefepime HCl (Maxipime 2000mg) 2,000 mg in 20 mls @ 5 mls/min IV Q12H [facility]; Protocol Stop: 12/09/24 22:00 Last Admin: 12/04/24 09:22 Dose: 5 mls/min Heparin Sodium/Dextrose (Heparin 49396 Unit/500 Ml D5w) 25,000 units in 500 mls @ 0 mls/hr IV .Q0M [facility]; Protocol Stop: 12/31/24 15:29 Last Titration: 12/02/24 00:10 Dose: 0 units/hr, 0 mls/hr Levofloxacin (Levofloxacin 750 Mg Tab) 750 mg PO Q24H [facility] Stop: 12/23/24 23:59 Magnesium Chloride (Magnesium Chloride W/Calcium 64mg Delayed Rel Tab) 64 mg PO BID [facility] Stop: 12/27/24 08:59 Last Admin: 12/04/24 09:13 Dose: 64 mg Metoprolol Succinate (Metoprolol Succ 50mg Ext Rel Tab) 50 mg PO QAM [facility] Stop: 12/20/24 08:59 Last Admin: 12/02/24 08:12 Dose: 50 mg Metoprolol Succinate (Metoprolol Succ 25mg Ext Rel Tab) 25 mg PO HS [facility] Stop: 12/30/24 20:59 Last Admin: 12/01/24 20:33 Dose: 25 mg Metoprolol Tartrate (Metoprolol Tartrate 1 Mg/Ml Vial) 2.5 mg IV Q6 PRN PRN Reason: Tachycardia HR>110 Stop: 12/26/24 17:59 Metronidazole (Metronidazole 500 Mg Tab) 500 mg PO BID [facility]; Protocol Stop: 12/09/24 23:59 Last Admin: 12/04/24 09:13 Dose: 500 mg Midodrine (Midodrine Hcl 10 Mg Tab) 10 mg PO TID@0800,1200,1700 [facility] Stop: 12/30/24 11:59 Last Admin: 12/04/24 12:47 Dose: 10 mg Nitroglycerin (Nitroglycerin Sl 0.4 Mg/Tab Tab) 0.4 mg SL Q5M PRN PRN Reason: Chest Pain Stop: 12/06/24 23:15 Ondansetron HCl (Ondansetron Inj 2 Mg/Ml 2 Ml Vial) 4 mg IV Q6H PRN PRN Reason: Nausea And Vomiting Stop: 12/28/24 09:55 Last Admin: 11/30/24 07:26 Dose: 4 mg Oxycodone HCl (Oxycodone Hcl Ir 5 Mg Tab (Immediate Release)) 5 mg PO Q4H PRN PRN Reason: Pain Stop: 12/17/24 00:41 Last Admin: 12/04/24 10:50 Dose: 5 mg Pantoprazole Sodium (Pantoprazole 40 Mg Tab) [facility] [place] Stop: 12/13/24 08:59 Last Admin: 12/04/24 09:13 Dose: 40 mg Polyethylene Glycol (Polyethylene (Miralax) 17 Gm Pack) 17 gm PO DAILY [facility] Stop: 01/01/25 15:29 Last Admin: 12/04/24 09:14 Dose: 17 gm Potassium Chloride (Potassium Chloride Crtab 20 Meq Tabcr) 20 meq [facility] [place] Stop: 12/20/24 08:59 Last Admin: 12/04/24 09:22 Dose: 20 meq Sennosides (Senna 8.6 Mg Tab) 17.2 mg [facility] [place] Stop: 12/30/24 10:29 Last Admin: 12/04/24 09:22 Dose: 17.2 mg Torsemide (Torsemide 20 Mg Tab) 20 [facility] [place] Stop: 12/19/24 08:59 Last Admin: 12/01/24 08:49 Dose: 20 mg Vitamin D (Cholecalciferol 125 Mcg (5,000 Units) Tab) 125 mcg PO QAM [facility] Stop: 12/17/24 10:14 Last Admin: 12/04/24 09:13 Dose: 125 mcg Warfarin Sodium (Warfarin Sod 5 Mg Tab) 5 mg PO DAILY@1600 [facility] Stop: 01/03/25 15:59
[2024-12-04] MEDS: METOPROLOL SUCC 25MG EXT REL TAB PO STA (14:34)
[2024-12-04] MEDS: WARFARIN SOD 5 MG TAB PO SCH (16:41)
[2024-12-05 07:08] LABS: Basophils # (auto) 0.05 K/uL (0.00-0.20); Basophils % (auto) 0.8 %; Eosinophils # (auto) 0.07 K/uL (0.00-0.50); Eosinophils % (auto) 1.1 %; Hematocrit (blood only) 28.4 % (37.0-47.0); Hemoglobin 8.7 g/dl (12.0-16.0); Immature Granulocytes % (auto) 4.7 %; Lymphocytes # (auto) 0.71 K/uL (1.20-3.40); Lymphocytes % (auto) 11.2 %; Mean Corpuscular Hemoglobin 31.4 pg (25.0-34.0); Mean Corpuscular Hgb Conc 30.6 g/dL (32.0-36.0); Mean Corpuscular Volume 102.5 fL (80.0-100.0); Mean Platelet Volume 10.7 fL (9.4-12.4); Monocytes # (auto) 0.61 K/uL (0.11-0.59); Monocytes % (auto) 9.6 %; Neutrophils % (auto) 72.6 %; Nucleated RBC # (auto) 0.03 K/uL (0.00-0.12); Nucleated RBC % (auto) 0.5 %; Platelet Count 191 K/uL (130-400); RDW Coefficient of Variation 23.3 % (11.5-14.5); RDW Standard Deviation 86.7 fL (36.4-46.3); Red Blood Count 2.77 M/uL (4.20-5.40); White Blood Count 6.34 K/ul (4.8-10.8)
[2024-12-05 07:26] LABS: BUN Creatinine Ratio 26.5 (10-20); Calcium 8.6 mg/dl (8.6-10.3); Potassium 4.3 mmol/L (3.5-5.1)
[2024-12-05 07:35] LABS: Anisocytosis Present; Polychromasia 1+; Tear Drop Cells 1+
--- NOTE | 2024-12-05 07:37 | Infectious Disease Progress Nt ---
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 Found with left hip fracture and new onset Afib. TTE with mild-mod , trace AR, severe MS, moderate MR, mild TR, pulmonary HTN. S/p left hip ORIF on 11/07. Admitted to ICU postop and was placed on pressors and stress steroids. Course c/b blood loss anemia requiring transfusion (CT femur with gluteal hematoma with areas of acti ve bleeding). Pressors eventually weaned off. Noted to have drainage from surgical site on 11/15, seen by surgery, felt it was serous drainage and not infection, managed conservatively. She had a CT pelvis on 11/22 that showed a large hematoma lateral to the left hip, no active extravasation; increased pleural effusions with atelectasis. S/p OR 11/23 for evacuation of hematoma, underwent I+D (per op note, large amount of hematoma was removed, deep cultures were taken, wound was deep to the fascia). Per Dr. Fitch, no c/f joint involvement but hematoma was near site of hardware entrance and preference for longer course of 4 weeks of abx. OR polymicrobial. ID consulted 11/24. She has been afebrile. WBC had been elevated up to 17, currently improved. Cr wnl. OR cx growing multiple organisms including Pseudomonas and anaerobe and was changed from CTX to cefepime/flagyl. She has a PCN allergy which she says was due to an antibiotic given for dental issue that caused itching, but couldnt recall lilia ing amox/augmentin. She went for a repeat I+D on 12/02 with wound vac application. Cx from 12/02 growing E faecalis and Pseudomonas. E faecalis growing in most recent cultures, which is not covered by current antibiotics. Im going to add daptomycin while waiting for sensitivities, noting her allergy to PCN, otherwise we could have used zosyn as a unifying drug. The PO regimen this time will include linezolid if sensitive to address enterococcus. Currently planned for a 4 week course of abx since there were c/f infection near site of hardware entrance and preference by ortho for a longer course. Abx: CTX 11/24->Cefepime 11/26- Flagyl 11/26- Dapto 12/05- # Post surgical infection OR cx polymicrobial including anaerobe, Pseudomonas, E faecalis # Left hip hematoma w/ c/f superinfection s/p evacuation 11/23, I+D 12/02 # Left hip fracture s/p ORIF 11/07 # New onset afib off amio # PCN allergy itching - I added daptomycin 600mg (~8m/kg) IV q24h - continue cefepime 2g IV q8h and metronidazole 500mg PO bid - if E faecalis is sensitive: --- will keep duration of IV abx as before until 12/09 with cefepime, flagyl PO, in addition now with daptomycin --- on 12/10, change IV abx to PO regimen consisting of levofloxacin 750mg PO daily and linezolid 600mg PO bid ending 12/23 (this end date will be 3 weeks total from last I+D on 12/02 and a little over 2 weeks of tx for E faecalis) further extension of abx from that point to be determined at that time - needs local ID follow up Will continue to follow. Please note that there will be no ID notes over the weekend. If questions or concerns arise, please contact the Infectious Disease Call Center and ask to speak with the covering ID physician. Edie Mallory MD [facility], Division of Infectious Diseases Admission and Anticipated Discharge Date Admission Date: November 06, 2024 Subjective This patient recommendation is based on a telemedicine consult request which was completed asynchronously through chart review and information provided by the primary physician. The patient was not seen or examined today. The evaluation is consultative in nature and all patient care and treatment decisions can either be accepted or rejected by the patient's primary hospital-based treating physician using their own independent medical judgment for their patient. Time Spent Reviewing Chart: 31+ minutes OR cultures with E faecalis and Pseudomonas. Results & Data Vital Signs (Past 12 Hours) Vital Signs Temp Pulse Pulse Resp BP BP Pulse Ox 12/05/24 04:31 36.8 C 92 H 18 103/62 94 12/04/24 23:41 36.9 C 86 18 100/63 96 12/04/24 22:09 71 18 97/62 L 94 12/04/24 22:00 12/04/24 21:57 75 O2 Del Method 12/05/24 04:31 Room Air 12/04/24 23:41 Room Air 12/04/24 22:09 Room Air 12/04/24 22:00 Room Air 12/04/24 21:57 Laboratory Results Labs reviewed. Diagnostic Findings Imaging reviewed. (2) Closed fracture of left hip Encounter type: initial encounter Qualified Code(s): S72.002A - Fracture of unspecified part of neck of left femur, initial encounter for closed fracture (3) Atrial fibrillation Atrial fibrillation type: unspecified Qualified Code(s): I48.91 - Unspecified atrial fibrillation
[2024-12-05 07:49] LABS: INR 1.2 (0.9-1.1); Prothrombin Time 12.9 Seconds (9.0-12.0)
[2024-12-05] MEDS: METOPROLOL SUCC 50MG EXT REL TAB PO SCH (09:27)
[2024-12-05] MEDS: DAPTOmycin 600 MG in SYRINGE 0 ML IV SCH (09:27)
--- NOTE | 2024-12-05 10:08 | Orthopedic Progress Note ---
Date of Service December 05, 2024 Assessment & Plan (1) Postoperative wound infection: Plan: IMPRESSION: POD #3 s/p I&D Left hip and wound vac placement, 10 days s/p I&D Left hip, with E. Coli, Klebsiella, Porphyromonas somerae, Pseudomonas aeruginosa infection, 3 weeks s/p ORIF L hip fracture, rough night but improving PLAN: Acute anemia blood loss, stable Hgb 8.7 ID recommendation: daptomycin 600mg (~8m/kg) IV q24h - continue cefepime 2g IV q8h and metronidazole 500mg PO bid - if E faecalis is sensitive: --- will keep duration of IV abx as before until 12/09 with cefepime, flagyl PO, in addition now with daptomycin --- on 12/10, change IV abx to PO regimen consisting of levofloxacin 750mg PO daily and linezolid 600mg PO bid ending 12/23 (this end date will be 3 weeks total from last I+D on 12/02 and a little over 2 weeks of tx for E faecalis) further extension of abx from that point to be determined at that time PT/OT WBAT LLE OOB to chair Continue pain control OR cx polymicrobial including anaerobe, Pseudomonas, E faecalis. May need PO Linezolid due to proximity of hardware Continue Wound vac, with Silver foam x 2 weeks, will be changed by Wound Care team at bedside 12/05/24, then M,W,F. (currently 400 mL of red gelatinous fluid in canister) Wound vac changed by Debra this AM Continue care per primary service (2) Right leg DVT: Plan: Bilateral Doppler was positive for a small clot in the right posterior tibial vein. Coumadin was increased to 5 mg from previously ordered 3. Symptoms have improved from yesterday. She does not have any edema or redness to the lower extremities. Admission and Anticipated Discharge Date Admission Date: November 06, 2024 Subjective This 74-year-old female seen 3 days status post repeat irrigation debridement of left hip Postoperative wound infection following fracture fixation. Patient states she is very uncomfortable today and tired. She states not sleep well last night. She states that her pain is exacerbated from having the new wound VAC placed. She states that she is hoping this is the last she needs to have and is hoping to be discharged to a rehab facility to regain her strength. Currently she denies chest pain, shortness of breath, fever, chills, sweats, nausea, vomiting, diarrhea or numbness or tingling in her left lower extremity. Review of Systems Review of Systems: All systems reviewed & are unremarkable except as noted in Subjective Physical Exam Physical Exam: Left lower extremity: New Wound VAC is kept in place. There is 400 mL of dark red gelatinous material in the old canister. I was not present for application of the new vac. There is no drainage from the anteriormost portal sites. Patient has some minimal tenderness to palpation circumferentially around the sites. She has difficulty performing active straight leg raise test. She is able to actively dorsi and plantarflex her foot. Patient is able to detect light sensation to touch over the pads of all digits. Her peripheral pulses are 2+. She is neurovascularly intact in the left lower extremity. Results & Data Vital Signs (Past 12 Hours) Vital Signs Temp Pulse Resp BP BP Pulse Ox O2 Del Method 12/05/24 08:08 36.6 C 104 H 17 132/76 93 Room Air 12/05/24 04:31 36.8 C 92 H 18 103/62 94 Room Air 12/04/24 23:41 36.9 C 86 18 100/63 96 Room Air 12/04/24 22:09 71 18 97/62 L 94 Room Air Diagnostic Findings Laboratory Results WBC 6.34 K/ul (4.8-10.8) 12/05/24 06:06 RBC 2.77 M/uL (4.20-5.40) L 12/05/24 06:06 Hgb 8.7 g/dl (12.0-16.0) L 12/05/24 06:06 POC Hgb 7.1 g/dl (12.0-16.0) L 11/08/24 04:19 Hct 28.4 % (37.0-47.0) L 12/05/24 06:06 POC Hct 21 % (37-47) L 11/08/24 04:19 MCV 102.5 fL (80.0-100.0) H 12/05/24 06:06 MCH 31.4 pg (25.0-34.0) 12/05/24 06:06 MCHC 30.6 g/dL (32.0-36.0) L 12/05/24 06:06 RDW Std Deviation 86.7 fL (36.4-46.3) H 12/05/24 06:06 RDW Coeff of Gifty 23.3 % (11.5-14.5) H 12/05/24 06:06 Plt Count 191 K/uL (130-400) 12/05/24 06:06 MPV 10.7 fL (9.4-12.4) 12/05/24 06:06 Immature Gran % (Auto) 4.7 % 12/05/24 06:06 Neut % (Auto) 72.6 % 12/05/24 06:06 Lymph % (Auto) 11.2 % 12/05/24 06:06 Smith % (Auto) 9.6 % 12/05/24 06:06 Eos % (Auto) 1.1 % 12/05/24 06:06 Baso % (Auto) 0.8 % 12/05/24 06:06 Neut # (Auto) 4.60 K/uL (1.40-6.50) 12/05/24 06:06 Lymph # (Auto) 0.71 K/uL (1.20-3.40) L 12/05/24 06:06 Smith # (Auto) 0.61 K/uL (0.11-0.59) H 12/05/24 06:06 Eos # (Auto) 0.07 K/uL (0.00-0.50) 12/05/24 06:06 Baso # (Auto) 0.05 K/uL (0.00-0.20) 12/05/24 06:06 Immature Gran # (Auto) 0.30 K/uL (0.01-0.20) H 12/05/24 06:06 Absolute Nucleated RBC 0.03 K/uL (0.00-0.12) 12/05/24 06:06 Nucleated RBC % (auto) 0.5 % 12/05/24 06:06 Neutrophils % (Manual) 73 % 11/17/24 06:24 Lymphocytes % (Manual) 15 % 11/17/24 06:24 Monocytes % (Manual) 3 % 11/17/24 06:24 Eosinophils % (Manual) 1 % 11/17/24 06:24 Basophils % (Manual) 1 % 11/14/24 04:38 Metamyelocytes % (Man) 5 % 11/17/24 06:24 Myelocytes % (Man) 3 % 11/17/24 06:24 Promyelocytes % (Man) 1 % 11/14/24 04:38 Blast Cells % (Manual) 1 % 11/16/24 05:52 Neutrophils # (Manual) 10.71 K/uL (1.40-6.50) H 11/17/24 06:24 Total Absolute Neuts 10.71 K/uL (1.4-6.5) H 11/17/24 06:24 Lymphocytes # (Manual) 2.20 K/uL (1.2-3.4) 11/17/24 06:24 Total Abs Lymphocytes 2.20 K/uL (1.2-3.4) 11/17/24 06:24 Monocytes # (Manual) 0.44 K/uL (0.11-0.59) 11/17/24 06:24 Eosinophils # (Manual) 0.15 K/uL (0-0.50) 11/17/24 06:24 Basophils # (Manual) 0.15 K/uL (0-0.2) 11/14/24 04:38 Metamyelocytes # (Man) 0.73 K/uL (0-0) H 11/17/24 06:24 Myelocytes # (Manual) 0.44 K/uL (0-0) H 11/17/24 06:24 Promyelocytes # (Man) 0.15 K/uL (0-0) H 11/14/24 04:38 Blast Cells # (Man) 0.18 K/uL (0-0) H 11/16/24 05:52 Platelet Estimate Decreased (Normal) L 11/09/24 04:09 RBC Morphology Unremarkable 11/08/24 04:27 Polychromasia 1+ 12/05/24 06:06 Basophilic Stippling 1+ 11/13/24 04:46 Anisocytosis Present 12/05/24 06:06 Tear Drop Cells 1+ 12/05/24 06:06 Ovalocytes 1+ 11/24/24 06:34 ESR 34 mm/hr (0-30) H 11/26/24 04:43 PT 12.9 Seconds (9.0-12.0) H 12/05/24 06:06 INR 1.2 (0.9-1.1) H 12/05/24 06:06 APTT 33 Seconds (21-31) H 12/01/24 15:54 PTT Ratio 1.2 12/01/24 15:54 Heparin Anti-Xa, Unfract < 0.10 IU/ml (0.3-0.7) L 12/01/24 22:23 Specimen Type Arterial 11/08/24 04:19 Sample Site Art Line 11/08/24 04:19 POC pH 7.36 (7.35-7.45) 11/08/24 04:19 POC pCO2 38 mmHg (35-46) 11/08/24 04:19 POC pO2 21 mmHg (80-95) L 11/08/24 04:19 POC HCO3 22 john/L (19-24) 11/08/24 04:19 POC Total CO2 23 mmol/L (24-31) L 11/08/24 04:19 POC Base Excess -4.0 john/L (-9-1.8) 11/08/24 04:19 O2 Sat Pulse Oximetry 100 11/08/24 04:19 ABG pH (Temp Correct) 7.364 (7.35-7.45) 11/08/24 04:19 ABG pCO2 (Temp Corrct 38 mmHg (35-46) 11/08/24 04:19 POC ABG pO2 at Pt Temp 20 11/08/24 04:19 POC ABG O2 Sat 33.0 % (90-95) L 11/08/24 04:19 Moe Test NA 11/08/24 04:19 VBG pH 7.42 (7.36-7.41) H 12/03/24 00:42 VBG pCO2 43 mmHg (38-50) 12/03/24 00:42 VBG pO2 37 mmHg 12/03/24 00:42 VBG HCO3 28 mmol/L 12/03/24 00:42 VBG O2 Saturation < 60.0 % 12/03/24 00:42 VBG Base Excess 2.9 mEq/L 12/03/24 00:42 O2 Delivery Device Cannula 11/08/24 04:19 POC Sodium 138 mmol/L (135-144) 11/08/24 04:19 Sodium 133 mmol/L (136-145) L 12/05/24 06:06 POC Potassium 3.7 mmol/L (3.3-5.0) 11/08/24 04:19 Potassium 4.3 mmol/L (3.5-5.1) 12/05/24 06:06 Chloride 103 mmol/L (98-107) 12/05/24 06:06 Carbon Dioxide 22 mmol/L (21-32) 12/05/24 06:06 Anion Gap 8 (3-11) 12/05/24 06:06 BUN 31 mg/dl (6-23) H 12/05/24 06:06 Creatinine 1.17 mg/dl (0.6-1.2) 12/05/24 06:06 Est Cr Clr Drug Dosing 51.0 ml/min 12/05/24 06:06 eGFR 48.97 12/05/24 06:06 BUN/Creatinine Ratio 26.5 (10-20) H 12/05/24 06:06 Glucose 84 mg/dl (70-99(Fasting)) 12/05/24 06:06 POC Glucose 160 mg/dl (70-99) H 12/03/24 00:42 Estimat Average Glucose 100 mg/dl 11/07/24 05:44 Hemoglobin A1c 5.1 % (4.5-5.6) 11/07/24 05:44 Lactate 1.6 mmol/L (0.4-2.0) 12/03/24 00:26 Calcium 8.6 mg/dl (8.6-10.3) 12/05/24 06:06 Ionized Calcium 1.14 mmol/L (1.12-1.32) 11/11/24 03:59 Phosphorus 2.6 mg/dl (2.5-4.9) 12/04/24 06:40 Magnesium 2.2 mg/dl (1.7-2.4) 12/03/24 06:27 Iron 46 mcg/dl (35-150) 11/26/24 04:43 TIBC 307 mcg/dl (250-450) 11/26/24 04:43 Transferrin 219 mg/dl (200-360) 11/26/24 04:43 Transferrin % Sat 15 % (15-50) 11/26/24 04:43 Total Bilirubin 2.5 mg/dl (0.2-1.0) H 11/19/24 05:24 AST 39 U/L (13-39) 11/19/24 05:24 ALT 35 U/L (7-52) 11/19/24 05:24 Alkaline Phosphatase 56 U/L (34-104) 11/19/24 05:24 Ammonia 21.0 umol/L (18-72) 12/03/24 00:42 Total Creatine Kinase 27 U/L (26-192) 11/07/24 05:44 Troponin I High Sens 19.3 pg/ml (0-14) H 11/26/24 07:48 C-Reactive Protein 9.63 mg/dl (0-0.5) H 11/26/24 04:43 B-Natriuretic Peptide 471 pg/ml (0-100) H 11/08/24 08:37 Total Protein 5.9 gm/dl (6.0-8.3) L 11/19/24 05:24 Albumin 3.0 gm/dl (3.4-5.0) L 11/30/24 06:08 Globulin 2.7 gm/dl (2.5-4.0) 11/19/24 05:24 Albumin/Globulin Ratio 1.2 (0.9-2) 11/19/24 05:24 Prealbumin 10.1 mg/dl (20-40) L 11/24/24 06:34 Vitamin B12 737 pg/ml (180-914) 11/26/24 04:43 25-OH Vitamin D Total 51.9 ng/ml (30-100) 11/24/24 06:34 Folate 11.43 ng/ml (>5.38) 11/26/24 04:43 Random Cortisol 19.25 mcg/dl 11/30/24 06:08 Nasal Screen MRSA (PCR) Negative (Negative) 11/07/24 Unknown Digoxin 1.6 ng/ml (0.8-2.0) 12/02/24 20:30 Hepatitis C Ab Screen Negative (Negative) 11/06/24 19:57 Blood Type A Positive 11/08/24 11:33 Blood Type Recheck A Positive 11/08/24 10:59 Antibody Screen NEGATIVE 11/08/24 11:33 Crossmatch See Detail 11/08/24 11:33 Impressions Hip/Pelvis X-Ray 11/06/24 20:00 Exam(s): XR HIP + PELVIS, 1 view EXAM: XR Left Hip With Pelvis When Performed, 2 or 3 Views CLINICAL HISTORY: Reason for exam: Hip fracture. TECHNIQUE: Two or three views of the left hip with pelvis when performed. COMPARISON: No relevant prior studies available. IMPRESSION: Limited views. There is an acute intertrochanteric fracture of the proximal left femur with mild displacement. Advanced degenerative arthropathy is noted at the left hip joint. 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 Fluoroscopy time: 4 minutes and 41 seconds. Number of fluoroscopic images: 6. Ka,r: 87.18 mGy. FINDINGS: Fluoroscopy was provided during open reduction and internal fixation of the intertrochanteric fracture of the left femur with trochanteric nail. Fracture alignment has improved. Distal screws are present. Linear radiodensities project over the operative bed are likely on the patient. Severe left hip osteoarthritis incidentally noted. IMPRESSION: Fluoroscopy provided during open reduction and internal fixation of the intertrochanteric fracture of the left femur. ACT 112: Negative or not required by law. Electronically signed by: Wilfredo Corbett M.D. 11/08/2024 12:[address] 11/08/24 11:21 EXAM: CT Pelvis With Intravenous Contrast INDICATION: Rule out bleed TECHNIQUE: Axial computed tomography images of the pelvis with intravenous contrast. Sagittal and coronal reformatted images were created and reviewed. This CT exam was performed using one or more of the following dose reduction techniques: automated exposure control, adjustment of the mA and/or kV according to patient size, and/or use of iterative reconstruction technique. CONTRAST: 94ml of Optiray 320 was administered intravenously. COMPARISON: No relevant prior studies available. FINDINGS: Bowel: No abnormality noted. No obstruction. No mucosal thickening. Appendix: No findings to suggest acute appendicitis. Intraperitoneal space: No free air. No significant fluid collection. Bladder: No filling defects to suggest mass or large stone. No inflammation. Reproductive: No significant abnormality noted. Bones/joints: There is an acute intertrochanteric fracture of the left femur with slight displacement. Long femoral nail with proximal and distal locking hardware well-seated and intact. Severe degenerative change of the left hip noted. Soft tissues: Large irregular subcutaneous hematoma extends from the level of the upper aspect of the left gluteal musculature to the lateral skin surface inferiorly tracking within and along the gluteal musculature predominantly in the subcutaneous fat terminating posterior level of the proximal femoral shaft. Moderate amounts of associated gas present. The skin surface is not completely included. There are areas of acute hemorrhage in the lateral aspect of the hematoma (see images series 6 [id number]. Most confluent area of hematoma measures maximal transverse diameter of 10 cm, AP diameter of 8.1 cm. Maximum length is roughly 17.4 cm. There is generalized subcutaneous contusion and gas. There is gas along the gluteal musculature. There is subcutaneous edema and scattered gas along the lateral aspect of the femur. Vasculature: No abnormality noted. No lower abdominal aortic aneurysm. Lymph nodes: No abnormality noted. No enlarged lymph nodes. IMPRESSION: 1. Large predominantly subcutaneous but partially gluteal hematoma with areas of active bleeding as above. There is generalized edema of the left lower extremity. 2. Internally fixed acute fracture of the intertrochanteric left femur. ACT 112: N/A Electronically signed by Ana Paula Stock 11-08-2024 13:[address] 11/08/24 11:21 EXAM: CT Pelvis With Intravenous Contrast INDICATION: Evaluate for bleeding TECHNIQUE: Axial computed tomography images of the pelvis with intravenous contrast. Sagittal and coronal reformatted images were created and reviewed. This CT exam was performed using one or more of the following dose reduction techniques: automated exposure control, adjustment of the mA and/or kV according to patient size, and/or use of iterative reconstruction technique. CONTRAST: 94ml of Optiray 320 was administered intravenously. COMPARISON: No relevant prior studies available. FINDINGS: Bones/joints: There is an acute nondisplaced fracture of the posterior aspect of the left inferior pubic ramus. There is an acute intertrochanteric fracture of the left femur with lateral displacement. Long femoral nail with proximal locking bolt well-seated and intact. Severe primary osteoarthritic change of the left hip noted. Soft tissues: There is diffuse subcutaneous contusion and hematoma beginning at the level of the upper gluteal musculature and partially involving the anterior gluteal muscular mass. Extensive subcutaneous gas noted. Areas of acute hemorrhage noted in the lateral aspect of the hematoma (series 4 images [id number] 20). Bladder: No filling defects to suggest mass or large stone. No inflammation. IMPRESSION: 1. Acute intertrochanteric fracture of the left femur with the visualized portion of the internal fixation hardware intact and well-seated. 2. Large predominantly subcutaneous hematoma from the upper left gluteal region to the proximal posterior left femur with areas of active bleeding as above. 3. There is an acute nondisplaced fracture of the posterior aspect of the left inferior pubic ramus. ACT 112: N/A Electronically signed by Ana Paula Stock 11-08-2024 2:02 PM Abdomen/Pelvis CT 11/08/24 11:26 EXAM: CT Abdomen and Pelvis With Intravenous Contrast INDICATION: Evaluate for bleeding TECHNIQUE: Axial computed tomography images of the abdomen and pelvis with intravenous contrast. Sagittal and coronal reformatted images were created and reviewed. This CT exam was performed using one or more of the following dose reduction techniques: automated exposure control, adjustment of the mA and/or kV according to patient size, and/or use of iterative reconstruction technique. CONTRAST: 93 ml of Optiray 320 was administered intravenously. COMPARISON: No relevant prior studies available. FINDINGS: Limitations: Portions of the right subcostal chest wall and upper abdominal wall not included. Lung bases and pleural space: Heart: Cardiomegaly. Small pericardial effusion noted. Dense mitral annular calcification is noted. Mediastinum: No abnormality noted. ABDOMEN: Liver: Normal size and contour. Hypodense typical of steatosis. No mass or ductal dilation. Gallbladder and bile ducts: Cholecystectomy. No ductal dilation or stone noted. Pancreas: Homogeneous enhancement. No mass, inflammation or ductal dilation. Spleen: No significant abnormality noted. Adrenals: Mild bilateral thickening. No measurable mass. Kidneys and ureters: There is a ill-defined hypodense area in the left renal midpole measuring approximately 2.7 x 1.4 x 0.9 cm. The right kidney appears normal. Stomach and bowel: No distension or mucosal thickening. No inflammation noted. PELVIS: Appendix: No findings to suggest acute appendicitis. Bladder: Gutierrez balloon inflated in the bladder which is collapsed and cannot be assessed. Reproductive: No abnormalities noted. ABDOMEN and PELVIS: Intraperitoneal space: No free air. No significant fluid collection. Bones/joints: Acute internally fixed left intertrochanteric femoral fracture noted. Degenerative changes present throughout the spine. There is moderate to severe degenerative change of the hips left greater than right. Soft tissues: There is a large hematoma and gas collection extending from the upper aspect of the left gluteal musculature tapering to the level of the proximal femur measuring maximal transverse dimension at the most confluent point of 11.9 cm in AP diameter of 7.3 cm. There is a small focus of acute hemorrhage in the lateral aspect of the hematoma at the level of the supra-acetabular iliac bone series 3 image 257/367. There is generalized surrounding subcutaneous contusion. Vasculature: Atherosclerotic calcification of the aorta and branches. No aneurysm. Lymph nodes: No pathologically enlarged lymph nodes. IMPRESSION: 1. Large subcutaneous hematoma extending from the upper left gluteal region to the proximal posterior left femur as above with small focus of acute hemorrhage in the lateral aspect of the hematoma. 2. Small bilateral pleural effusions and dependent atelectasis. 3. Ill-defined hypodensity left kidney could be a mass or a hyperdense cyst. Sonographic assessment is recommended when able. ACT 112: N/A Electronically signed by Ana Paula Stock 11-08-2024 13:54 PM Renal Ultrasound 11/14/24 08:50 RENAL ULTRASOUND HISTORY: f/u CT, left kidney lesion COMPARISON: CT 11/08/2024 FINDINGS: Limited study secondary to patient body habitus. Right kidney: 10.2 cm. No hydronephrosis. Normal corticomedullary differentiation and cortical thickness. Left kidney: 10.8 cm. Ill-defined hypoechoic lesion within the midpole left kidney demonstrates no definite color flow measuring 1.4 x 1.4 x 0.9 cm and appears to represent a complex septated cyst. No hydronephrosis. Normal corticom edullary differentiation and cortical thickness. Bladder: No bladder wall thickening. The bilateral ureteral jets are not identified. 1.3 cm splenule again noted. IMPRESSION: 1. Limited exam secondary to patient body habitus. 2. 1.4 cm lesion within the midpole left kidney favors a complex cyst, however is suboptimally evaluated. A precautionary MRI of the abdomen with and without IV contrast utilizing renal protocol recommended to further evaluate. 3. No hydronephrosis. ACT 112: Negative or not required by law. Electronically signed by: Vimal Altamirano M.D. 11/14/2024 11:05 AM Pelvis CTA 11/22/24 08:32 EXAM: CT Angiography Abdomen and Pelvis Without and With Intravenous Contrast INDICATION: Assess for active bleeding. TECHNIQUE: Axial computed tomographic angiography images of the abdomen and pelvis without and with intravenous contrast. Sagittal and coronal reformatted images were created and reviewed. This CT exam was performed using one or more of the following dose reduction techniques: automated exposure control, adjustment of the mA and/or kV according to patient size, and/or use of iterative reconstruction technique. MIP reconstructed images were created and reviewed. CONTRAST: 118ml of Optiray 320 was administered intravenously. COMPARISON: CT abdomen pelvis 11/08/2024 FINDINGS: VASCULATURE: Aorta: Atherosclerotic calcification of the aorta and branches. No aneurysm. Celiac trunk and mesenteric arteries: No acute change noted. No occlusion or significant stenosis. Renal arteries: No acute change noted. No occlusion or significant stenosis. Iliac arteries: No acute change noted. No occlusion or significant stenosis. Lung bases: See below. Pleural space: Increased small bilateral layering pleural effusions and bilateral lower lobe dependent atelectasis. Heart: Stable cardiomegaly. Dense mitral annular calcification. No pericardial effusion. ABDOMEN: Liver: No abnormality noted. No mass. Gallbladder and bile ducts: Cholecystectomy. No ductal dilation or stone noted. Pancreas: No abnormality noted. No ductal dilation. No mass. Spleen: No abnormality noted. No splenomegaly. Adrenals: No abnormality noted. No mass. Kidneys and ureters: Stable 2 mm nonobstructing left kidney stone. Right kidney appears normal. Stomach and bowel: No abnormality noted. No obstruction. No mucosal thickening. PELVIS: Appendix: No findings to suggest acute appendicitis. Bladder: There is a small amount of air in the urinary bladder. Previously seen Gutierrez catheter no longer present. No stones. Reproductive: No significant abnormality noted. ABDOMEN and PELVIS: Intraperitoneal space: There is a small amount of layering fluid in the presacral space. No abscess or free air. Bones/joints: Internally fixed intertrochanteric fracture of the left femur noted. Visualized portion of the hardware well-seated. There is severe arthritic change of the left hip. Mild degenerative changes right hip. There is accentuated lumbar lordosis and diffuse facet arthrosis and mild spondylosis. Soft tissues: There is irregular gas, subcutaneous hematoma and generalized contusional changes in the subcutaneous fat lateral to the left hip. No acute extravasation identified. The area in total a measures greatest transverse diameter of approximately 1 and 11 cm transverse by 16 cm long. 5 9 cm AP. There is increased conspicuity of subcutaneous contusion in the right lateral pannus. Lymph nodes: No abnormality noted. No enlarged lymph nodes. IMPRESSION: 1. Hematoma and generalized subcutaneous contusion lateral to the left hip as above. No active extravasation noted. 2. Increased small layering pleural effusions and bilateral lower lobe compressive atelectasis. ACT 112: N/A Electronically signed by Ana Paula Stock 11-22-2024 09:49 AM Chest X-Ray 11/26/24 09:56 XR chest 1V portable CLINICAL HISTORY: shortness of breath COMPARISON STUDY: 11/16/2024 FINDINGS: There is stable prominent cardiomegaly with pulmonary vascular congestion. Stable diffuse pulmonary interstitial prominence. Stable hazy opacity in the lung bases with obscuration of the diaphragm and blunting of the costophrenic angles. IMPRESSION: Stable CHF with small bilateral pleural effusions and associated lung base consolidation. ACT 112: Negative or not required by law. Electronically signed by: Chan Limon M.D. 11/26/2024 10:24 AM KUB X-Ray 11/30/24 09:19 2 views of the abdomen were obtained Comparison is made to the CT dated 11/22/2024 Findings: There is constipation with prominent stool within the rectum. There is no definite sign of bowel obstruction. There are surgical clips in the right upper quadrant. No definite renal or ureteral calculi are seen. There is severe left hip osteoarthritis. There is internal fixation of the left femur. There is an unchanged displaced greater trochanter fracture fragment that could be acute or subacute. There is lumbar scoliosis and degenerative disc disease Impression: 1. Constipation 2. Unchanged left femoral neck fracture, internal fixation of the left femur, and severe left hip osteoarthritis ACT 112: Positive. There are findings on this exam that require communication between the performing entity and the patient following Patient Test Result Information Act ([place] ACT 112) guidelines. Electronically signed by Vladimir Dickson 11-30-2024 10:07 AM Venous Doppler Study 12/01/24 10:45 BILATERAL LOWER EXTREMITY VENOUS DOPPLER HISTORY: bilateral worsening calf pain, L>R, r/o BL DVT COMPARISON STUDY: None FINDINGS: There is a small amount of thrombus at the posterior tibial vein on the right. No other evidence of DVT seen at either lower extremity. There is a likely small Myers's cyst on the left. IMPRESSION: Small amount of DVT at the right lower extremity. No DVT seen on th e left. ACT 112: Negative or not required by law. Electronically signed by: Chan Limon M.D. 12/01/2024 12:03 PM (2) Right leg DVT Affected thrombotic vein of extremity: tibial Chronicity: unspecified Qualified Code(s): I82.441 - Acute embolism and thrombosis of right tibial vein
--- NOTE | 2024-12-05 11:41 | Hospitalist Progress Note ---
Date of Service December 05, 2024 Assessment & Plan (1) Closed left hip fracture: Plan: 74-year-old female from [facility] with past medical history significant for hypertension, CHF who is status post fall with left hip fracture, s/p ORIF on 11/07/24 with postop anemia and hypotension requiring transfer to the ICU. Closed left hip fracture Secondary to mechanical fall --S/P open reduction internal fixation left hip by Dr. Fitch on 11/07/2024 Left hip hematoma S/P ORIF, Non healing wound S/P incision and drainage left hip by Dr. Fitch on 11/23/2024 Postoperative acute blood loss anemia Weightbearing as tolerated left lower extremity Has had more pain in the left hip last night but pain still seems to be controlled now Pain seems to be under control Post operative Wound infection- left hip outside the joint -- Wound culture:E coli, Klebsiella oxytoca, Soto ornithinolytica, Porphyromonas, Pseudomonas -- appreciate ID input and recommendation Pain control as needed IV Rocephin transition to cefepime 2 g IV every 8 hours and added metronidazole 500 mg twice a day Plan to continue cefepime, metronidazole to complete 2-week course till 12/09/2024. Transition to Levaquin 750 mg daily from 12/10/24 to 12/23/24. Needs weekly CBC with differential, CMP, ESR, CRP while on IV antibiotics Will have second I&D this afternoon for ongoing collection at the site of the wound Status post I&D of the left hip wound and wound VAC placement Wound VAC is in situ on the left hip and managed by Ortho and wound care nurse Wound VAC is in place and the drainage seems to be decreased-Management as per wound care nurse and the orthopedic surgeon Appreciate ID input and recommendation Hypotension Hypotensive Shock Pt with postop hypotensive shock requiring transfer to the ICU Required vasopressor support x2 Was on midodrine 10mg TID, hydrocortisone and florinef for adrenal support Home antihypertensives on hold Appreciate critical care, cardiology input Continue metoprolol, midodrine Increase midodrine to 10 mg TID given symptomatic hypotension Blood pressure better with midodrine Has had significant hypotension last night and received intravenous albumin and also a dose of dexamethasone last night Blood pressure seems to be stable though on the lower side at 103/58 Will start with smaller doses of beta-jose Blood pressure is maintaining and this is much better today 132/76 Constipation KUB showed no signs of obstruction Continue bowel regimen Minimize narcotic use as able Encouraged to ambulate Will give enema today Acute Blood Loss Anemia post op, requiring 3U pRBCs CT abd/pelvis noting large hematoma Hemoglobin stable 10.8 today Monitor CBC- hemoglobin is 8.4 Right lower extremity DVT Likely due to interruption of Coumadin for procedure and immobilization --Venous doppler:Small amount of DVT at the right lower extremity. No DVT seen on the left. Plan to start on low-dose heparin if okay with Ortho Transition to Coumadin as able-has been getting Coumadin Acute depression Feels very depressed and wanted to have some help Appreciate psychiatrist input and recommendation Plan to start duloxetine 20 mg daily after about 4 weeks to decrease the risk of bleeding She is agreeable to start duloxetine 20 mg daily after about 4 weeks (2) Chronic heart failure with preserved ejection fraction: Plan: Acute on Chronic heart failure with preserved EF Hypoxia--resolved IV Lasix discontinued Appreciate Cardiology input Continue metoprolol succinate 50 mg every morning, 25 mg every afternoon Monitor volume status closely Hold torsemide as planned for procedure tomorrow and creatinine rising Resume torsemide as able Valvular heart disease --ECHO: Moderate concentric LVH, focal thickening of basal septum with cavity obliteration at mid ventricular level. Septal motion is consistent with conduction abnormality. EF 65 to 70%. Left atrium is severely dilated. Aortic valve leaflets are moderately calcified. Mild to moderate valvular aortic stenosis. Severe mitral annular calcification. Mitral valve leaflets appear mobile. Mild mitral stenosis. Severe mitral regurgitation. --Continue current medications Follow-up with cardiology on discharge (3) Atrial fibrillation with controlled ventricular response: Plan: Atrial Fibrillation with RVR Was on IV amiodarone, then transitioned to oral amiodarone before being discontinued. Continue metoprolol succinate, digoxin IV Lopressor as needed INR 1.8 today Coumadin on hold Plan to start IV heparin if okay with Ortho IV heparin is on hold and will not be started again INR is 1.6 today and will restart Coumadin as soon as okay from the orthopedic surgeon INR is 1.4 today and will restart Coumadin todaywill not restart heparin as it caused bleeding x 2 INR is 1.3 today and will increase Coumadin to 5 mg Heart rate is going up and it is 109 as of now and will restart Toprol with a smaller dose Heart rate is minimally elevated at 104 and will continue current dose of beta- jose Hypocalcemia Hypokalemia Replete electrolytes as needed Monitor Acute kidney injury Likely multifactorial: Hypotension, ATN, medications Torsemide on hold Adjust medications renally Monitor renal function Creatinine 1.4 on 12/03/2024 Kidney function is much improved (4) Moderate mitral regurgitation: Plan Leukocytosis Likely in setting of steroid use Resolved DVT Px: Coumadin--on hold CODE STATUS Full code Disposition Rehab when able Admission and Anticipated Discharge Date Admission Date: November 06, 2024 Subjective 12/02/2024 The patient was seen and examined in medical telemetry unit She has been stable and wants to get out of bed and get into physical therapy Will have evacuation of hematoma/collection from left hip this afternoon Denies any significant symptoms 12/03/2024 The patient was seen and examined in telemetry unit She is status post incision and drainage left hip wound with wound VAC placement on 12/02/2024 She has had a very bad night with increasing pain 10 out of 10 and her blood pressure was dropping Received intravenous albumin also midodrine and pain medications Has been feeling better this morning and the pain is reasonably controlled 12/04/2024 The patient was seen and examined in telemetry unit She has been feeling little better today and the blood pressure is maintaining Heart rate seems to be going up and will restart metoprolol Pain is controlled denies any fever and/or chills, any nausea no vomiting 12/05/2024 The patient was seen and examined in ICU in presence of the son She has been stable without any significant pain No fever and/or chills and blood pressure remains controlled Review of Systems Review of Systems: All systems reviewed and unremarkable except as noted below Physical Exam Physical Exam: Lying in bed without any significant pain and/or distress Constitutional: well developed, well nourished, + ill appearing and + obese Eyes: PERRL, conjunctivae normal, anicteric sclerae ENMT: external ear and nose normal, oropharynx normal Neck: trachea midline, no thyromegaly Respiratory: no respiratory distress Auscultation: lungs clear to auscultation bilaterally and + diminished lung sounds ( minimal crackles at the bases) Cardiovascular: Rate/Rhythm: + irregularly irregular; not tachycardic Heart Sounds: normal S1, normal S2 and + murmur Extremities: + edema (Trace edema bilaterally) Gastrointestinal (Abdomen): Inspection/Auscultation: normal bowel sounds; abdomen not distended Percussion/Palpation: abdomen soft; abdomen nontender Musculoskeletal: Left hip wound with the wound VAC in situ and the drainage seems to be decreasing Neurologic: normal touch/pain/proprioception and moves all extremities (Less movement with the left lower extremity due to fracture) Psychiatric: A+Ox3, euthymic affect Lymphatic: no cervical or axillary lymphadenopathy Results & Data Results & Data Vital Signs (Past 12 Hours) Vital Signs Temp Pulse Resp BP BP Pulse Ox O2 Del Method 12/05/24 08:08 36.6 C 104 H 17 132/76 93 Room Air 12/05/24 04:31 36.8 C 92 H 18 103/62 94 Room Air 12/04/24 23:41 36.9 C 86 18 100/63 96 Room Air Laboratory Results Short CBC 12/05/24 Range/Units 06:06 WBC 6.34 (4.8-10.8) K/ul Hgb 8.7 L (12.0-16.0) g/dl Hct 28.4 L (37.0-47.0) % Plt Count 191 (130-400) K/uL [facility] 12/05/24 06:06 Sodium 133 L Potassium 4.3 Chloride 103 Carbon Dioxide 22 BUN 31 H Creatinine 1.17 Glucose 84 Calcium 8.6 Medications Administered Current Inpatient Medications Acetaminophen (Acetaminophen 325 Mg Tab) 650 mg PO QID PRN PRN Reason: pain/fever Stop: 01/02/25 00:41 Bisacodyl (Bisacodyl 10 Mg Supp) 10 mg [place] DAILY PRN PRN Reason: Constipation Stop: 12/30/24 10:28 Calcium Carbonate (Calcium Carbonate 1,250 Mg/5 Ml Udc) 1,250 mg PO BID [facility] Stop: 12/12/24 08:59 Last Admin: 12/05/24 09:27 Dose: 1,250 mg Digoxin (Digoxin 0.125 Mg Tab) 0.125 mg PO DAILY@1600 [facility] Stop: 12/23/24 15:59 Last Admin: 12/04/24 15:37 Dose: 0.125 mg Docusate Sodium (Docusate Sodium 100 Mg Cap) 100 mg PO BID [facility] Stop: 12/29/24 10:59 Last Admin: 12/05/24 09:27 Dose: 100 mg Hydromorphone HCl (Hydromorphone Inj 0.5 Mg/0.5 Ml Syr) 0.25 mg IV Q4H PRN PRN Reason: Pain Stop: 12/17/24 03:44 Last Admin: 12/03/24 17:12 Dose: 0.25 mg Heparin Sodium/Dextrose (Heparin 41822 Unit/500 Ml D5w) 25,000 units in 500 mls @ 0 mls/hr IV .Q0M [facility]; Protocol Stop: 12/31/24 15:29 Last Titration: 12/02/24 00:10 Dose: 0 units/hr, 0 mls/hr Daptomycin 600 mg/ Syringe 12 mls @ 7.25 mls/min IV Q24H [facility]; Protocol Stop: 12/12/24 07:59 Last Admin: 12/05/24 09:27 Dose: 7.25 mls/min Cefepime HCl (Maxipime 2000mg) 2,000 mg in 20 mls @ 5 mls/min IV Q8H [facility]; Protocol Stop: 12/12/24 11:44 Levofloxacin (Levofloxacin 750 Mg Tab) 750 mg PO Q24H [facility] Stop: 12/23/24 23:59 Magnesium Chloride (Magnesium Chloride W/Calcium 64mg Delayed Rel Tab) 64 mg PO BID [facility] Stop: 12/27/24 08:59 Last Admin: 12/05/24 09:27 Dose: 64 mg Metoprolol Succinate (Metoprolol Succ 25mg Ext Rel Tab) 25 mg PO HS [facility] Stop: 12/30/24 20:59 Last Admin: 12/04/24 22:10 Dose: Not Given Metoprolol Succinate (Metoprolol Succ 50mg Ext Rel Tab) 50 mg PO QAM [facility] Stop: 01/04/25 08:59 Last Admin: 12/05/24 09:27 Dose: 50 mg Metoprolol Tartrate (Metoprolol Tartrate 1 Mg/Ml Vial) 2.5 mg IV Q6 PRN PRN Reason: Tachycardia HR>110 Stop: 12/26/24 17:59 Metronidazole (Metronidazole 500 Mg Tab) 500 mg PO BID [facility]; Protocol Stop: 12/09/24 23:59 Last Admin: 12/05/24 09:27 Dose: 500 mg Midodrine (Midodrine Hcl 10 Mg Tab) 10 mg PO TID@0800,1200,1700 [facility] Stop: 12/30/24 11:59 Last Admin: 12/05/24 09:27 Dose: 10 mg Nitroglycerin (Nitroglycerin Sl 0.4 Mg/Tab Tab) 0.4 mg SL Q5M PRN PRN Reason: Chest Pain Stop: 01/04/25 23:15 Ondansetron HCl (Ondansetron Inj 2 Mg/Ml 2 Ml Vial) 4 mg IV Q6H PRN PRN Reason: Nausea And Vomiting Stop: 12/28/24 09:55 Last Admin: 11/30/24 07:26 Dose: 4 mg Oxycodone HCl (Oxycodone Hcl Ir 5 Mg Tab (Immediate Release)) 5 mg PO Q4H PRN PRN Reason: Pain Stop: 12/17/24 00:41 Last Admin: 12/05/24 06:19 Dose: 5 mg Pantoprazole Sodium ([facility] 40 Mg Tab) [facility]: 01/04/25 08:59 Last Admin: 12/05/24 09:28 Dose: 40 mg Polyethylene Glycol (Polyethylene (Miralax) 17 Gm Pack) 17 gm PO DAILY [facility] Stop: 01/01/25 15:29 Last Admin: 12/05/24 09:28 Dose: 17 gm Potassium Chloride (Potassium Chloride Crtab 20 Meq Tabcr) [facility]q [facility] Stop: 12/20/24 08:59 Last Admin: 12/05/24 09:28 Dose: 20 meq Sennosides (Senna 8.6 Mg Tab) 17.2 mg PO QAM [facility] Stop: 12/30/24 10:29 Last Admin: 12/05/24 09:28 Dose: 17.2 mg Torsemide ([facility]semide 20 Mg Tab) [facility] Stop: 12/19/24 08:59 Last Admin: 12/01/24 08:49 Dose: 20 mg Vitamin D (Cholecalciferol 125 Mcg (5,000 Units) Tab) 125 mcg PO QAM [facility] Stop: 12/17/24 10:14 Last Admin: 12/05/24 09:27 Dose: 125 mcg Warfarin Sodium (Warfarin Sod 5 Mg Tab) 5 mg PO DAILY@1600 [facility] Stop: 01/03/25 15:59 Last Admin: 12/04/24 16:41 Dose: 5 mg
[2024-12-05] MEDS ORDERED: CEFEPIME 2000MG 2,000 MG/20 ML SYR IV SCH (11:45)
[2024-12-06 07:28] LABS: Basophils # (auto) 0.06 K/uL (0.00-0.20); Basophils % (auto) 0.9 %; Eosinophils # (auto) 0.05 K/uL (0.00-0.50); Eosinophils % (auto) 0.8 %; Hematocrit (blood only) 30.9 % (37.0-47.0); Hemoglobin 9.5 g/dl (12.0-16.0); Immature Granulocytes # (auto) 0.31 K/uL (0.01-0.20); Immature Granulocytes % (auto) 4.9 %; Lymphocytes % (auto) 7.8 %; Mean Corpuscular Hemoglobin 31.5 pg (25.0-34.0); Mean Corpuscular Hgb Conc 30.7 g/dL (32.0-36.0); Mean Corpuscular Volume 102.3 fL (80.0-100.0); Mean Platelet Volume 10.1 fL (9.4-12.4); Monocytes # (auto) 0.49 K/uL (0.11-0.59); Monocytes % (auto) 7.7 %; Neutrophils # (auto) 4.97 K/uL (1.40-6.50); Neutrophils % (auto) 77.9 %; Nucleated RBC # (auto) 0.06 K/uL (0.00-0.12); Nucleated RBC % (auto) 0.9 %; Platelet Count 182 K/uL (130-400); RDW Coefficient of Variation 23.1 % (11.5-14.5); RDW Standard Deviation 86.2 fL (36.4-46.3); Red Blood Count 3.02 M/uL (4.20-5.40); White Blood Count 6.38 K/ul (4.8-10.8)
[2024-12-06 07:52] LABS: INR 1.3 (0.9-1.1); Prothrombin Time 13.7 Seconds (9.0-12.0)
[2024-12-06 07:55] LABS: BUN Creatinine Ratio 19.8 (10-20); Calcium 8.4 mg/dl (8.6-10.3); Creatinine Clr Calc Pharmacy 51.5 ml/min; Potassium 4.3 mmol/L (3.5-5.1)
[2024-12-06 08:16] LABS: Anisocytosis Present; Polychromasia 2+; Tear Drop Cells 1+
--- NOTE | 2024-12-06 08:28 | Orthopedic Progress Note ---
Date of Service December 06, 2024 Assessment & Plan (1) Postoperative wound infection: Plan: IMPRESSION: POD #4 s/p I&D Left hip and wound vac placement, with Pseudomonas aeruginosa infection; 2 weeks s/p I&D Left hip, with E. Coli, Klebsiella, Porphyromonas somerae, Pseudomonas aeruginosa infection; 4 weeks s/p ORIF L hip fracture, better this am PLAN: Acute anemia blood loss, stable Hgb 9.5 ID recommendation appreciated: daptomycin 600mg (~8m/kg) IV q24h - continue cefepime 2g IV q8h and metronidazole 500mg PO bid OR Cx polymicrobial including anaerobe, Pseudomonas, E faecalis. May need PO Linezolid due to proximity of hardware - if E faecalis is sensitive: --- will keep duration of IV Abx as before until 12/09 with cefepime, Flagyl PO, in addition now with daptomycin --- on 12/10, change IV Abx to PO regimen consisting of levofloxacin 750mg PO daily and linezolid 600mg PO bid ending 12/23 (this end date will be 3 weeks total from last I+D on 12/02 and a little over 2 weeks of Tx for E faecalis) further extension of Abx from that point to be determined at that time PT/OT WBAT LLE OOB to chair Continue pain control Continue Wound vac, with Silver foam x 2 weeks, will be changed by Wound Care team at bedside 12/05/24, then M,W,F. (currently 400 mL of red gelatinous fluid in canister) Continue care per primary service PSO will continue to follow while in hospital. I will be out of town for a week, Dr. Louis will be covering starting Sunday. If any issues on Sunday please contact Ortho on-call. (2) Right leg DVT: Plan: Bilateral Doppler was positive for a small clot in the right posterior tibial vein. Coumadin was increased to 5 mg from previously ordered 3. Symptoms have improved from yesterday. She does not have any edema or redness to the lower extremities. Admission and Anticipated Discharge Date Admission Date: November 06, 2024 Subjective Feeling better today Physical Exam Physical Exam: LLE: NV intact. Distal incisions healing nicely, no evidence of infection. Wound vac in place and functioning, acceptable dark bloody drainage. Calf soft and non-tender. Results & Data Vital Signs (Past 12 Hours) Vital Signs Temp Pulse Resp BP Pulse Ox O2 Del Method 12/06/24 08:00 36.7 C 101 H 18 106/70 91 Room Air 12/06/24 03:23 36.7 C 76 18 102/58 L 91 Room Air 12/05/24 22:46 36.6 C 82 18 99/63 L 92 Room Air Laboratory Results 12/06/24 12/05/24 Range/Units 07:04 16:11 WBC 6.38 (4.8-10.8) K/ul RBC 3.02 L (4.20-5.40) M/uL Hgb 9.5 L (12.0-16.0) g/dl Hct 30.9 L (37.0-47.0) % MCV 102.3 H (80.0-100.0) fL MCH 31.5 (25.0-34.0) pg MCHC 30.7 L (32.0-36.0) g/dL RDW Std Deviation 86.2 H (36.4-46.3) fL RDW Coeff of Gifty 23.1 H (11.5-14.5) % Plt Count 182 (130-400) K/uL MPV 10.1 (9.4-12.4) fL Immature Gran % (Auto) 4.9 % Neut % (Auto) 77.9 % Lymph % (Auto) 7.8 % Boyd % (Auto) 7.7 % Eos % (Auto) 0.8 % Baso % (Auto) 0.9 % Neut # (Auto) 4.97 (1.40-6.50) K/uL Lymph # (Auto) 0.50 L (1.20-3.40) K/uL Boyd # (Auto) 0.49 (0.11-0.59) K/uL Eos # (Auto) 0.05 (0.00-0.50) K/uL Baso # (Auto) 0.06 (0.00-0.20) K/uL Immature Gran # (Auto) 0.31 H (0.01-0.20) K/uL Absolute Nucleated RBC 0.06 (0.00-0.12) K/uL Nucleated RBC % (auto) 0.9 % Polychromasia 2+ Anisocytosis Present Tear Drop Cells 1+ PT 13.7 H (9.0-12.0) Seconds INR 1.3 H (0.9-1.1) Sodium 132 L (136-145) mmol/L Potassium 4.3 (3.5-5.1) mmol/L Chloride 103 (98-107) mmol/L Carbon Dioxide 22 (21-32) mmol/L Anion Gap 7 (3-11) BUN 23 (6-23) mg/dl Creatinine 1.16 (0.6-1.2) mg/dl Est Cr Clr Drug Dosing 51.5 ml/min eGFR 49.47 BUN/Creatinine Ratio 19.8 (10-20) Glucose 112 H (70-99(Fasting)) mg/dl POC Glucose 153 H (70-99) mg/dl Calcium 8.4 L (8.6-10.3) mg/dl Gram Stain Final 12/02/24-2053 Gram Stain Result Rare WBCs Seen No Organisms Seen Aero/Rin Cult Preliminary 12/05/24-1221 Organism 1 Pseudomonas aeruginosa Quantity Rare Sens Sensitivities to Follow Please see culture number [id number] for sensitivities. P aerugino RX M.I.C. --- --------- Amikacin S <=16 Aztreonam S <=4 Cefepime S 4 Ceftazidime S 4 Ciprofloxacin I 1 Levofloxacin S <=0.5 Meropenem S <=1 Tobramycin S <=2 Pip/Tazo S <=8 S = SENSITIVE I = INTERMEDIATE R = RESISTANT (2) Right leg DVT Affected thrombotic vein of extremity: tibial Chronicity: unspecified Qualified Code(s): I82.441 - Acute embolism and thrombosis of right tibial vein
--- NOTE | 2024-12-06 13:09 | Hospitalist Progress Note ---
Date of Service December 06, 2024 Assessment & Plan (1) Closed left hip fracture: Plan: 74-year-old female from [place] visiting [place] with past medical history significant for hypertension, CHF who is status post fall with left hip fracture, s/p ORIF on 11/07/24 with postop anemia and hypotension requiring transfer to the ICU. Closed left hip fracture Secondary to mechanical fall --S/P open reduction internal fixation left hip by Dr. Fitch on 11/07/2024 Left hip hematoma S/P ORIF, Non healing wound S/P incision and drainage left hip by Dr. Fitch on 11/23/2024 Postoperative acute blood loss anemia Weightbearing as tolerated left lower extremity Has had more pain in the left hip last night but pain still seems to be controlled now Pain seems to be under control Post operative Wound infection- left hip outside the joint -- Wound culture:E coli, Klebsiella oxytoca, [place] ornithinolytica, Porphyromonas, Pseudomonas -- appreciate ID input and recommendation Pain control as needed IV Rocephin transition to cefepime 2 g IV every 8 hours and added metronidazole 500 mg twice a day Plan to continue cefepime, metronidazole to complete 2-week course till 12/09/2024. Transition to Levaquin 750 mg daily from 12/10/24 to 12/23/24. Needs weekly CBC with differential, CMP, ESR, CRP while on IV antibiotics Will have second I&D this afternoon for ongoing collection at the site of the wound Status post I&D of the left hip wound and wound VAC placement Wound VAC is in situ on the left hip and managed by Ortho and wound care nurse Wound VAC is in place and the drainage seems to be decreased-Management as per wound care nurse and the orthopedic surgeon Appreciate ID input and recommendation Remains stable with minimal drainage through the wound VAC and no adjoining inflammation or or infection Hypotension Hypotensive Shock Pt with postop hypotensive shock requiring transfer to the ICU Required vasopressor support x2 Was on midodrine 10mg TID, hydrocortisone and florinef for adrenal support Home antihypertensives on hold Appreciate critical care, cardiology input Continue metoprolol, midodrine Increase midodrine to 10 mg TID given symptomatic hypotension Blood pressure better with midodrine Has had significant hypotension last night and received intravenous albumin and also a dose of dexamethasone last night Blood pressure seems to be stable though on the lower side at 103/58 Will start with smaller doses of beta-jose Blood pressure is maintaining and this is much better today 132/76 Blood pressure remains on the lower side today at 96/63 Constipation KUB showed no signs of obstruction Continue bowel regimen Minimize narcotic use as able Encouraged to ambulate Will give enema today Bowel is moving Acute Blood Loss Anemia post op, requiring 3U pRBCs CT abd/pelvis noting large hematoma Hemoglobin stable 10.8 today Monitor CBC- hemoglobin is 8.4- hemoglobin remains stable Right lower extremity DVT Likely due to interruption of Coumadin for procedure and immobilization --Venous doppler:Small amount of DVT at the right lower extremity. No DVT seen on the left. Plan to start on low-dose heparin if okay with Ortho Transition to Coumadin as able-has been getting Coumadin Acute depression Feels very depressed and wanted to have some help Appreciate psychiatrist input and recommendation Plan to start duloxetine 20 mg daily after about 4 weeks to decrease the risk of bleeding She is agreeable to start duloxetine 20 mg daily after about 4 weeks (2) Chronic heart failure with preserved ejection fraction: Plan: Acute on Chronic heart failure with preserved EF Hypoxia--resolved IV Lasix discontinued Appreciate Cardiology input Continue metoprolol succinate 50 mg every morning, 25 mg every afternoon Monitor volume status closely Hold torsemide as planned for procedure tomorrow and creatinine rising Resume torsemide as able- will restart torsemide from tomorrow Valvular heart disease --ECHO: Moderate concentric LVH, focal thickening of basal septum with cavity obliteration at mid ventricular level. Septal motion is consistent with conduction abnormality. EF 65 to 70%. Left atrium is severely dilated. Aortic valve leaflets are moderately calcified. Mild to moderate valvular aortic stenosis. Severe mitral annular calcification. Mitral valve leaflets appear mobile. Mild mitral stenosis. Severe mitral regurgitation. --Continue current medications Follow-up with cardiology on discharge (3) Atrial fibrillation with controlled ventricular response: Plan: Atrial Fibrillation with RVR Was on IV amiodarone, then transitioned to oral amiodarone before being discontinued. Continue metoprolol succinate, digoxin IV Lopressor as needed INR 1.8 today Coumadin on hold Plan to start IV heparin if okay with Ortho IV heparin is on hold and will not be started again INR is 1.6 today and will restart Coumadin as soon as okay from the orthopedic surgeon INR is 1.4 today and will restart Coumadin todaywill not restart heparin as it caused bleeding x 2 INR is 1.3 today and will increase Coumadin to 5 mg Heart rate is going up and it is 109 as of now and will restart Toprol with a smaller dose Heart rate is minimally elevated at 104 and will continue current dose of beta- jose Rate is controlled with current dose of beta-jose and the blood pressure remains on the lower side INR is 1.3 today and will increase the Coumadin with additional 2.5 mg today Hypocalcemia Hypokalemia Replete electrolytes as needed Monitor Acute kidney injury Likely multifactorial: Hypotension, ATN, medications Torsemide on hold Adjust medications renally Monitor renal function Creatinine 1.4 on 12/03/2024 Kidney function is much improved (4) Moderate mitral regurgitation: Plan Leukocytosis Likely in setting of steroid use Resolved DVT Px: Coumadin--on hold CODE STATUS Full code Disposition Rehab when able Admission and Anticipated Discharge Date Admission Date: November 06, 2024 Subjective 12/02/2024 The patient was seen and examined in medical telemetry unit She has been stable and wants to get out of bed and get into physical therapy Will have evacuation of hematoma/collection from left hip this afternoon Denies any significant symptoms 12/03/2024 The patient was seen and examined in telemetry unit She is status post incision and drainage left hip wound with wound VAC placement on 12/02/2024 She has had a very bad night with increasing pain 10 out of 10 and her blood pressure was dropping Received intravenous albumin also midodrine and pain medications Has been feeling better this morning and the pain is reasonably controlled 12/04/2024 The patient was seen and examined in telemetry unit She has been feeling little better today and the blood pressure is maintaining Heart rate seems to be going up and will restart metoprolol Pain is controlled denies any fever and/or chills, any nausea no vomiting 12/05/2024 The patient was seen and examined in PCU in presence of the son She has been stable without any significant pain No fever and/or chills and blood pressure remains controlled 12/06/2024 The patient was seen and examined in telemetry unit She has been stable and feeling little better day by day Denies any significant pain in the left hip and wants to participate in physical therapy Denies any other significant symptoms Review of Systems Review of Systems: All systems reviewed and unremarkable except as noted below Physical Exam Physical Exam: Lying in bed without any significant pain and/or distress Constitutional: well developed, well nourished, + ill appearing and + obese Eyes: PERRL, conjunctivae normal, anicteric sclerae ENMT: external ear and nose normal, oropharynx normal Neck: trachea midline, no thyromegaly Respiratory: no respiratory distress Auscultation: lungs clear to auscultation bilaterally and + diminished lung sounds ( minimal crackles at the bases) Cardiovascular: Rate/Rhythm: + irregularly irregular; not tachycardic Heart Sounds: normal S1, normal S2 and + murmur Extremities: no edema (Trace edema bilaterally) Gastrointestinal (Abdomen): Inspection/Auscultation: normal bowel sounds; abd omen not distended Percussion/Palpation: abdomen soft; abdomen nontender Musculoskeletal: l with minimal drainagLeft hip wound noted in the picture and the wound VAC is in situ Skin: No adjoining redness or tenderness involving the left hip wound Neurologic: normal touch/pain/proprioception and moves all extremities (Less movement with the left lower extremity due to fracture) Psychiatric: A+Ox3, euthymic affect Lymphatic: no cervical or axillary lymphadenopathy Results & Data Results & Data Vital Signs (Past 12 Hours) Vital Signs Temp Pulse Resp BP Pulse Ox O2 Del Method 12/06/24 12:16 36.6 C 90 18 96/63 L 91 Room Air 12/06/24 09:15 Room Air 12/06/24 08:00 36.7 C 101 H 18 106/70 91 Room Air 12/06/24 03:23 36.7 C 76 18 102/58 L 91 Room Air Laboratory Results Short CBC 12/06/24 Range/Units 07:04 WBC 6.38 (4.8-10.8) K/ul Hgb 9.5 L (12.0-16.0) g/dl Hct 30.9 L (37.0-47.0) % Plt Count 182 (130-400) K/uL BMP 12/06/24 07:04 Sodium 132 L Potassium 4.3 Chloride 103 Carbon Dioxide 22 BUN 23 Creatinine 1.16 Glucose 112 H Calcium 8.4 L Medications Administered Current Inpatient Medications Acetaminophen (Acetaminophen 325 Mg Tab) 650 mg PO QID PRN PRN Reason: pain/fever Stop: 01/02/25 00:41 Bisacodyl (Bisacodyl 10 Mg Supp) 10 mg [place] DAILY PRN PRN Reason: Constipation Stop: 12/30/24 10:28 Calcium Carbonate (Calcium Carbonate 1,250 Mg/5 Ml Udc) 1,250 mg PO BID [facility] Stop: 12/12/24 08:59 Last Admin: 12/06/24 08:36 Dose: 1,250 mg Digoxin (Digoxin 0.125 Mg Tab) 0.125 mg PO DAILY@1600 [facility] Stop: 12/23/24 15:59 Last Admin: 12/05/24 16:26 Dose: 0.125 mg Docusate Sodium (Docusate Sodium 100 Mg Cap) 100 mg PO BID [facility] Stop: 12/29/24 10:59 Last Admin: 12/06/24 08:36 Dose: 100 mg Hydromorphone HCl (Hydromorphone Inj 0.5 Mg/0.5 Ml Syr) 0.25 mg IV Q4H PRN PRN Reason: Pain Stop: 12/17/24 03:44 Last Admin: 12/03/24 17:12 Dose: 0.25 mg Cefepime HCl (Maxipime 2000mg) 2,000 mg in 20 mls @ 5 mls/min IV Q12H [facility]; Protocol Stop: 12/09/24 22:00 Last Admin: 12/06/24 09:21 Dose: 5 mls/min Heparin Sodium/Dextrose (Heparin 60822 Unit/500 Ml D5w) 25,000 units in 500 mls @ 0 mls/hr IV .Q0M [facility]; Protocol Stop: 12/31/24 15:29 Last Titration: 12/02/24 00:10 Dose: 0 units/hr, 0 mls/hr Daptomycin 600 mg/ Syringe 12 mls @ 7.25 mls/min IV Q24H [facility]; Protocol Stop: 12/12/24 07:59 Last Admin: 12/06/24 08:36 Dose: 7.25 mls/min Levofloxacin (Levofloxacin 750 Mg Tab) 750 mg PO Q24H [facility] Stop: 12/23/24 23:59 Magnesium Chloride (Magnesium Chloride W/Calcium 64mg Delayed Rel Tab) 64 mg PO BID [facility] Stop: 12/27/24 08:59 Last Admin: 12/06/24 08:36 Dose: 64 mg Metoprolol Succinate (Metoprolol Succ 25mg Ext Rel Tab) 25 mg PO HS [facility] Stop: 12/30/24 20:59 Last Admin: 12/05/24 20:00 Dose: Not Given Metoprolol Succinate (Metoprolol Succ 50mg Ext Rel Tab) 50 mg PO QAM [facility] Stop: 01/04/25 08:59 Last Admin: 12/06/24 08:37 Dose: 50 mg Metoprolol Tartrate (Metoprolol Tartrate 1 Mg/Ml Vial) 2.5 mg IV Q6 PRN PRN Reason: Tachycardia HR>110 Stop: 12/26/24 17:59 Metronidazole (Metronidazole 500 Mg Tab) 500 mg PO BID [facility]; Protocol Stop: 12/09/24 23:59 Last Admin: 12/06/24 08:37 Dose: 500 mg Midodrine (Midodrine Hcl 10 Mg Tab) 10 mg PO TID@0800,1200,1700 [facility] Stop: 12/30/24 11:59 Last Admin: 12/06/24 12:26 Dose: 10 mg Nitroglycerin (Nitroglycerin Sl 0.4 Mg/Tab Tab) 0.4 mg SL Q5M PRN PRN Reason: Chest Pain Stop: 01/04/25 23:15 Ondansetron HCl (Ondansetron Inj 2 Mg/Ml 2 Ml Vial) 4 mg IV Q6H PRN PRN Reason: Nausea And Vomiting Stop: 12/28/24 09:55 Last Admin: 11/30/24 07:26 Dose: 4 mg Oxycodone HCl (Oxycodone Hcl Ir 5 Mg Tab (Immediate Release)) 5 mg PO Q4H PRN PRN Reason: Pain Stop: 12/17/24 00:41 Last Admin: 12/06/24 06:46 Dose: 5 mg Pantoprazole Sodium (Pantoprazole 40 Mg Tab) [facility] Stop: 01/04/25 08:59 Last Admin: 12/06/24 08:37 Dose: 40 mg Polyethylene Glycol (Polyethylene (Miralax) 17 Gm Pack) 17 gm PO DAILY [facility] Stop: 01/01/25 15:29 Last Admin: 12/06/24 08:37 Dose: 17 gm Potassium Chloride (Potassium Chloride Crtab 20 Meq Tabcr) 20 meq [facility] [place] Stop: 12/20/24 08:59 Last Admin: 12/06/24 08:37 Dose: 20 meq Sennosides (Senna 8.6 Mg Tab) 17.2 mg PO [facility] Stop: 12/30/24 10:29 Last Admin: 12/06/24 08:37 Dose: 17.2 mg Torsemide (Torsemide 20 Mg Tab) [facility] [place] Stop: 12/19/24 08:59 Last Admin: 12/01/24 08:49 Dose: 20 mg Vitamin D (Cholecalciferol 125 Mcg (5,000 Units) Tab) 125 mcg PO [facility] Stop: 12/17/24 10:14 Last Admin: 12/06/24 08:36 Dose: 125 mcg Warfarin Sodium (Warfarin Sod 5 Mg Tab) 5 mg PO DAILY@1600 [facility] Stop: 01/03/25 15:59 Last Admin: 12/05/24 16:26 Dose: 5 mg Warfarin Sodium (Warfarin Sod 2.5 Mg Tab) 2.5 mg PO TODAY@1600 [facility] Stop: 12/06/24 16:01
[2024-12-06] MEDS: WARFARIN SOD 2.5 MG TAB PO ONE (16:42)
[2024-12-07 07:54] LABS: Albumin Globulin Ratio 1.2 (0.9-2); BUN Creatinine Ratio 22.7 (10-20); Bilirubin,Total 1.4 mg/dl (0.2-1.0); C Reactive Protein 5.49 mg/dl (0-0.5); Calcium 8.4 mg/dl (8.6-10.3); Creatinine Clr Calc Pharmacy 61.4 ml/min; Globulin 2.7 gm/dl (2.5-4.0); Magnesium 2.1 mg/dl (1.7-2.4); Phosphorus 2.9 mg/dl (2.5-4.9); Potassium 4.4 mmol/L (3.5-5.1); Total Protein 5.9 gm/dl (6.0-8.3)
[2024-12-07 08:00] LABS: INR 1.3 (0.9-1.1); Prothrombin Time 13.6 Seconds (9.0-12.0)
--- NOTE | 2024-12-07 12:42 | Hospitalist Progress Note ---
Date of Service December 07, 2024 Assessment & Plan (1) Closed left hip fracture: Plan: 74-year-old female from [place] visiting [place] with past medical history significant for hypertension, CHF who is status post fall with left hip fracture, s/p ORIF on 11/07/24 with postop anemia and hypotension requiring transfer to the ICU. Closed left hip fracture Secondary to mechanical fall --S/P open reduction internal fixation left hip by Dr. Fitch on 11/07/2024 Post operative Wound infection- left hip outside the joint --Status post I&D of left hip on 11/23/2024 --Status post repeat I&D of hip with wound VAC placement on 12/02/2024 Postoperative acute blood loss anemia Patient presented with closed hip fracture after mechanical fall; underwent ORIF on 11/07/2024. The postoperative period was complicated by wound infection for which she underwent I&D on 11/23 along with wound VAC placement in 12/02. Wound culture from 11/23:E coli, Klebsiella oxytoca, [place] ornithinolytica, Porphyromonas, Pseudomonas Wound culture from 12/02- E. Faecalis, P. aeruginosa Currently on cefepime, Flagyl p.o. along with daptomycin; plan to keep until 12/09. On 12/10plan to switch over to p.o. levofloxacin 750 mg daily along with linezolid 600 mg twice daily ending in 12/23. Further extension of treatment to be determined by local ID follow-up. Continue wound VAC as per wound care Hypotensive Shock- Resolved Pt with postop hypotensive shock requiring transfer to the ICU Required vasopressor support x2 Was on midodrine 10mg TID, hydrocortisone and florinef for adrenal support- Florinef discontinued. will decrease midodrine to 5 mg 3 times daily Constipation- improved Acute Blood Loss Anemia post op, requiring 3U pRBCs CT abd/pelvis noting large hematoma Hb stable Right lower extremity DVT Likely due to interruption of Coumadin for procedure and immobilization --Venous doppler:Small amount of DVT at the right lower extremity. No DVT seen on the left. on Coumadin; increased dose to 7.5mg once a day. Acute depression Feels very depressed and wanted to have some help Appreciate psychiatrist input and recommendation Plan to start duloxetine 20 mg daily after about 4 weeks to decrease the risk of bleeding She is agreeable to start duloxetine 20 mg daily after about 4 weeks (2) Chronic heart failure with preserved ejection fraction: Plan: Acute on Chronic heart failure with preserved EF Hypoxia--resolved IV Lasix discontinued Appreciate Cardiology input Continue metoprolol succinate 50 mg every morning, 25 mg every afternoon Monitor volume status closely torsemide on hold for now. Valvular heart disease --ECHO: Moderate concentric LVH, focal thickening of basal septum with cavity obliteration at mid ventricular level. Septal motion is consistent with conduction abnormality. EF 65 to 70%. Left atrium is severely dilated. Aortic valve leaflets are moderately calcified. Mild to moderate valvular aortic stenosis. Severe mitral annular calcification. Mitral valve leaflets appear mobile. Mild mitral stenosis. Severe mitral regurgitation. --Continue current medications Follow-up with cardiology on discharge (3) Atrial fibrillation with controlled ventricular response: Plan: Atrial Fibrillation with RVR Was on IV amiodarone, then transitioned to oral amiodarone before being discontinued. Continue metoprolol succinate, digoxin IV Lopressor as needed on Coumadin; increased dose to 10mg daily Acute kidney injury-resolved Likely multifactorial: Hypotension, ATN, medications Torsemide on hold (4) Moderate mitral regurgitation: Plan DVT Px: Coumadin CODE STATUS Full code Disposition Rehab when able Admission and Anticipated Discharge Date Admission Date: November 06, 2024 Subjective Patient seen and examined at bedside. She reports that she is feeling much better today compared to previous days. Pain is well-controlled. No diarrhea/vomiting. No significant events overnight Review of Systems Review of Systems: All systems reviewed & are unremarkable except as noted in Subjective Physical Exam Physical Exam: Constitutional: Alert oriented x 3; not in any distress. Respiratory: bilateral vesicular breath sound Cardiovascular: irregular, no murmur, no edema Vessels: no JVD or carotid bruit Chest: normal inspection of chest Abdomen: normal bowel sounds, soft, nontender, no hepatosplenomegaly Musculoskeletal: Dressing with wound VAC intact on left hip Neurologic: PERRL, EOMI, accommodation nl, no face palsy, no dysarthria CN's II- XI intact bilaterally and moves all extremities Results & Data Results & Data Vital Signs (Past 12 Hours) Vital Signs Temp Pulse Resp BP Pulse Ox O2 Del Method 12/07/24 11:47 36.8 C 93 H 18 106/69 96 Room Air 12/07/24 08:25 36.6 C 81 18 110/70 94 Room Air 12/07/24 03:26 36.5 C 79 18 98/65 L 96 Room Air
[2024-12-07] MEDS ORDERED: WARFARIN SOD 7.5 MG TAB PO SCH (16:00)
[2024-12-07] MEDS: MIDODRINE HCL 2.5 MG TAB PO SCH (16:03)
[2024-12-07] MEDS: WARFARIN SOD 10 MG TAB PO SCH (16:03)
[2024-12-07] MEDS: CEFEPIME 2000MG 2,000 MG/20 ML SYR IV SCH (18:07)
[2024-12-08 06:40] LABS: Basophils # (auto) 0.06 K/uL (0.00-0.20); Basophils % (auto) 0.9 %; Eosinophils % (auto) 1.4 %; Hematocrit (blood only) 32.9 % (37.0-47.0); Immature Granulocytes # (auto) 0.24 K/uL (0.01-0.20); Immature Granulocytes % (auto) 3.5 %; Lymphocytes # (auto) 0.79 K/uL (1.20-3.40); Lymphocytes % (auto) 11.4 %; Mean Corpuscular Hgb Conc 30.4 g/dL (32.0-36.0); Mean Corpuscular Volume 101.9 fL (80.0-100.0); Mean Platelet Volume 10.6 fL (9.4-12.4); Monocytes # (auto) 0.64 K/uL (0.11-0.59); Monocytes % (auto) 9.2 %; Neutrophils # (auto) 5.11 K/uL (1.40-6.50); Neutrophils % (auto) 73.6 %; Platelet Count 158 K/uL (130-400); RDW Standard Deviation 81.7 fL (36.4-46.3); Red Blood Count 3.23 M/uL (4.20-5.40); White Blood Count 6.94 K/ul (4.8-10.8)
[2024-12-08 07:04] LABS: Calcium 8.4 mg/dl (8.6-10.3); Creatinine Clr Calc Pharmacy 59.7 ml/min; INR 1.5 (0.9-1.1); Potassium 4.4 mmol/L (3.5-5.1)
[2024-12-08 07:16] LABS: Anisocytosis Present; Polychromasia 2+
--- NOTE | 2024-12-08 08:54 | Infectious Disease Progress Nt ---
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 Found with left hip fracture and new onset Afib. TTE with mild-mod , trace AR, severe MS, moderate MR, mild TR, pulmonary HTN. S/p left hip ORIF on 11/07. Admitted to ICU postop and was placed on pressors and stress steroids. Course c/b blood loss anemia requiring transfusion (CT femur with gluteal hematoma with areas of acti ve bleeding). Pressors eventually weaned off. Noted to have drainage from surgical site on 11/15, seen by surgery, felt it was serous drainage and not infection, managed conservatively. She had a CT pelvis on 11/22 that showed a large hematoma lateral to the left hip, no active extravasation; increased pleural effusions with atelectasis. S/p OR 11/23 for evacuation of hematoma, underwent I+D (per op note, large amount of hematoma was removed, deep cultures were taken, wound was deep to the fascia). Per Dr. Fitch, no c/f joint involvement but hematoma was near site of hardware entrance and preference for longer course of 4 weeks of abx. OR polymicrobial. ID consulted 11/24. She has been afebrile. WBC had been elevated up to 17, currently improved. Cr wnl. OR cx growing multiple organisms including Pseudomonas and anaerobe and was changed from CTX to cefepime/flagyl. She has a PCN allergy which she says was due to an antibiotic given for dental issue that caused itching, but couldnt recall lilia ing amox/augmentin. Due to increased drainage from the wound, she went for a repeat I+D on 12/02 with wound vac application (per op note, purulent fluid with necrotic fat, wound went down to fascia). Cx from 12/02 growing amp-S E faecalis and Pseudomonas. ESR/CRP downtrending. Currently planned for a 4 week course of abx since there were c/f infection near site of hardware entrance and preference by ortho for a longer course. Planned for initial 2 weeks being IV followed by 2 wks of PO. Inflammatory markers are decreasing. CTX 11/24->Cefepime 11/26- Flagyl 11/26- Dapto 12/05- # Post surgical infection OR cx polymicrobial including anaerobe, Pseudomonas, E faecalis # Left hip hematoma w/ c/f superinfection s/p evacuation 11/23, I+D 12/02 # Left hip fracture s/p ORIF 11/07 # New onset afib off amio # PCN allergy itching - continue daptomycin 600mg (~8m/kg) IV q24h - continue cefepime 2g IV q8h and metronidazole 500mg PO bid - continue IV abx as until 12/09 with daptomycin, cefepime, and flagyl PO - on 12/10, change abx to levofloxacin 750mg PO daily and linezolid 600mg PO bid ending 12/23 (this end date will be 3 weeks total from last I+D on 12/02 and a little over 2 weeks of tx for E faecalis) further extension of abx from that point to be determined at that time - please ensure she has local outpatient ID follow up - monitor CBC w diff, CMP, ESR, CRP, CPK weekly while on IV abx Will discontinue active follow up at this time. Please do not hesitate to reconsult the Infectious Diseases service as needed. Edie Mallory MD [facility], Division of Infectious Diseases [employer]: [phone] Admission and Anticipated Discharge Date Admission Date: November 06, 2024 Subjective This patient recommendation is based on a telemedicine consult request which was completed asynchronously through chart review and information provided by the primary physician. The patient was not seen or examined today. The evaluation is consultative in nature and all patient care and treatment decisions can either be accepted or rejected by the patient's primary hospital-based treating physician using their own independent medical judgment for their patient. Time Spent Reviewing Chart: 31+ minutes Remains afebrile. Results & Data Vital Signs (Past 12 Hours) Vital Signs Temp Pulse Pulse Resp BP BP Pulse Ox 12/08/24 08:17 37.0 C 88 18 105/63 97 12/08/24 03:42 36.5 C 93 H 20 104/67 96 12/07/24 22:56 36.5 C 68 18 113/73 97 12/07/24 22:30 73 12/07/24 21:17 O2 Del Method 12/08/24 08:17 Room Air 12/08/24 03:42 Room Air 12/07/24 22:56 Room Air 12/07/24 22:30 12/07/24 21:17 Room Air Laboratory Results Labs reviewed. 11/07 MRSA screen: neg 11/23 Left hip cx: E coli (ortega-S), K oxytoca/Raoultella ornithinolytica (R-amp and cefazolin), Porphyromonas somerae, PsA (ortega-S), multiple counts of probable skin sarah 12/02 OR cx: PsA (I-cipro, S-levo), E faecalis (amp-S) (2) Closed fracture of left hip Encounter type: initial encounter Qualified Code(s): S72.002A - Fracture of unspecified part of neck of left femur, initial encounter for closed fracture (3) Atrial fibrillation Atrial fibrillation type: unspecified Qualified Code(s): I48.91 - Unspecified atrial fibrillation
[2024-12-08] MEDS: HYDROmorphone INJ 0.5 MG/0.5 ML SYR IV PRN (10:06)
--- NOTE | 2024-12-08 10:12 | Orthopedic Progress Note ---
Date of Service December 08, 2024 Assessment & Plan (1) Postoperative wound infection: Plan: IMPRESSION: POD #6 s/p I&D Left hip and wound vac placement, with Pseudomonas aeruginosa infection; 2 weeks s/p I&D Left hip, with E. Coli, Klebsiella, Porphyromonas somerae, Pseudomonas aeruginosa infection; 4 weeks s/p ORIF L hip fracture, better this am PLAN: Acute anemia blood loss, stable Hgb 10 Left hip wound cultures taken in the OR 12/02 positive for Pseudomonas aeruginosa and Enterococcus faecalis ID recommendation appreciated: daptomycin 600mg (~8m/kg) IV q24h - continue cefepime 2g IV q8h and metronidazole 500mg PO bid OR Cx polymicrobial including anaerobe, Pseudomonas, E faecalis. May need PO Linezolid due to proximity of hardware - if E faecalis is sensitive: E Faecalis sensitive to dapto and linezolid --- will keep duration of IV Abx as before until 12/09 with cefepime, Flagyl PO, in addition now with daptomycin --- on 12/10, change IV Abx to PO regimen consisting of levofloxacin 750mg PO daily and linezolid 600mg PO bid ending 12/23 (this end date will be 3 weeks total from last I+D on 12/02 and a little over 2 weeks of Tx for E faecalis) further extension of Abx from that point to be determined at that time PT/OT WBAT LLE OOB to chair Continue pain control Continue Wound vac, with Silver foam x 2 weeks, will be changed by Wound Care team M,W,F. (currently 350 mL of red gelatinous fluid in canister) Continue care per primary service Dr Fitch is out this week and Dr Louis/PSO will be covering for him (2) Right leg DVT: Plan: Bilateral Doppler was positive for a small clot in the right posterior tibial vein. Coumadin was increased to 5 mg from previously ordered 3. Symptoms have improved. She does not have any edema or redness to the lower extremities. Admission and Anticipated Discharge Date Admission Date: November 06, 2024 Segundo Martinez says that she is overall doing well today. She had a considerable amount of pain after her surgery but that has been improving. She is not currently having any pain. She has been able to work with PT/OT. She has been able to sit in a chair. Physical Exam Physical Exam: Patient is lying in bed, sitting up awake and alert. She seems to be in relatively good spirits this morning. Wound VAC was in place and suctioning properly. There is approximately 350 mL of bloody fluid. Sensation intact distally to light touch. She is able to freely wiggle all of her toes and pump her ankle. Results & Data Vital Signs (Past 12 Hours) Vital Signs Temp Pulse Pulse Resp BP BP Pulse Ox 12/08/24 08:17 37.0 C 88 18 105/63 97 12/08/24 03:42 36.5 C 93 H 20 104/67 96 12/07/24 22:56 36.5 C 68 18 113/73 97 12/07/24 22:30 73 O2 Del Method 12/08/24 08:17 Room Air 12/08/24 03:42 Room Air 12/07/24 22:56 Room Air 12/07/24 22:30 (2) Right leg DVT Affected thrombotic vein of extremity: tibial Chronicity: unspecified Qualified Code(s): I82.441 - Acute embolism and thrombosis of right tibial vein
--- NOTE | 2024-12-08 11:04 | Hospitalist Progress Note ---
Date of Service December 08, 2024 Assessment & Plan (1) Closed left hip fracture: Plan: 74-year-old female from [place] visiting [place] with past medical history significant for hypertension, CHF who is status post fall with left hip fracture, s/p ORIF on 11/07/24 with postop anemia and hypotension requiring transfer to the ICU. Closed left hip fracture Secondary to mechanical fall --S/P open reduction internal fixation left hip by Dr. Fitch on 11/07/2024 Post operative Wound infection- left hip outside the joint --Status post I&D of left hip on 11/23/2024 --Status post repeat I&D of hip with wound VAC placement on 12/02/2024 Postoperative acute blood loss anemia Patient presented with closed hip fracture after mechanical fall; underwent ORIF on 11/07/2024. The postoperative period was complicated by wound infection for which she underwent I&D on 11/23 along with wound VAC placement in 12/02. Wound culture from 11/23:E coli, Klebsiella oxytoca, Delmita ornithinolytica, Porphyromonas, Pseudomonas Wound culture from 12/02- E. Faecalis, P. aeruginosa Currently on cefepime, Flagyl p.o. along with daptomycin; plan to keep until 12/09. On 12/10plan to switch over to p.o. levofloxacin 750 mg daily along with linezolid 600 mg twice daily ending in 12/23. Further extension of treatment to be determined by local ID follow-up. Continue wound VAC as per wound care Hypotensive Shock- Resolved Pt with postop hypotensive shock requiring transfer to the ICU Required vasopressor support x2 Was on midodrine 10mg TID, hydrocortisone and florinef for adrenal support- Florinef discontinued. will decrease midodrine to 5 mg 3 times daily Constipation- improved Acute Blood Loss Anemia post op, requiring 3U pRBCs CT abd/pelvis noting large hematoma Hb stable Right lower extremity DVT Likely due to interruption of Coumadin for procedure and immobilization --Venous doppler:Small amount of DVT at the right lower extremity. No DVT seen on the left. on Coumadin; increased dose to 7.5mg once a day. Acute depression Feels very depressed and wanted to have some help Appreciate psychiatrist input and recommendation Plan to start duloxetine 20 mg daily after about 4 weeks to decrease the risk of bleeding She is agreeable to start duloxetine 20 mg daily after about 4 weeks (2) Chronic heart failure with preserved ejection fraction: Plan: Acute on Chronic heart failure with preserved EF Hypoxia--resolved IV Lasix discontinued Appreciate Cardiology input Continue metoprolol succinate 50 mg every morning, 25 mg every afternoon Monitor volume status closely torsemide on hold for now; patient appears compensated. Valvular heart disease --ECHO: Moderate concentric LVH, focal thickening of basal septum with cavity obliteration at mid ventricular level. Septal motion is consistent with conduction abnormality. EF 65 to 70%. Left atrium is severely dilated. Aortic valve leaflets are moderately calcified. Mild to moderate valvular aortic stenosis. Severe mitral annular calcification. Mitral valve leaflets appear mobile. Mild mitral stenosis. Severe mitral regurgitation. --Continue current medications Follow-up with cardiology on discharge (3) Atrial fibrillation with controlled ventricular response: Plan: Atrial Fibrillation with RVR Was on IV amiodarone, then transitioned to oral amiodarone before being discontinued. Continue metoprolol succinate, digoxin IV Lopressor as needed on Coumadin; increased dose to 10mg daily Acute kidney injury-resolved Likely multifactorial: Hypotension, ATN, medications Torsemide on hold (4) Moderate mitral regurgitation: Plan DVT Px: Coumadin CODE STATUS Full code Disposition Possible DC to rehab in next few days. Admission and Anticipated Discharge Date Admission Date: November 06, 2024 Subjective Patient seen and examined at bedside. She reports that she is feeling much better. Pain is well-controlled on current medication. No significant events overnight Review of Systems Review of Systems: All systems reviewed & are unremarkable except as noted in Subjective Physical Exam Physical Exam: Constitutional: Alert oriented x 3; not in any distress. Respiratory: bilateral vesicular breath sound Cardiovascular: irregular, no murmur, no edema Vessels: no JVD or carotid bruit Chest: normal inspection of chest Abdomen: normal bowel sounds, soft, nontender, no hepatosplenomegaly Musculoskeletal: Dressing with wound VAC intact on left hip Neurologic: PERRL, EOMI, accommodation nl, no face palsy, no dysarthria CN's II- XI intact bilaterally and moves all extremities Results & Data Results & Data Vital Signs (Past 12 Hours) Vital Signs Temp Pulse Resp BP BP Pulse Ox O2 Del Method 12/08/24 08:17 37.0 C 88 18 105/63 97 Room Air 12/08/24 03:42 36.5 C 93 H 20 104/67 96 Room Air
[2024-12-08] MEDS: CEFEPIME 2000MG 2,000 MG/20 ML SYR IV SCH (21:53)
[2024-12-09 06:34] LABS: Basophils # (auto) 0.05 K/uL (0.00-0.20); Basophils % (auto) 0.7 %; Eosinophils % (auto) 1.3 %; Hematocrit (blood only) 32.3 % (37.0-47.0); Hemoglobin 10.1 g/dl (12.0-16.0); Immature Granulocytes # (auto) 0.21 K/uL (0.01-0.20); Immature Granulocytes % (auto) 2.8 %; Lymphocytes # (auto) 0.67 K/uL (1.20-3.40); Lymphocytes % (auto) 8.9 %; Mean Corpuscular Hemoglobin 31.7 pg (25.0-34.0); Mean Corpuscular Hgb Conc 31.3 g/dL (32.0-36.0); Mean Corpuscular Volume 101.3 fL (80.0-100.0); Mean Platelet Volume 10.9 fL (9.4-12.4); Monocytes # (auto) 0.82 K/uL (0.11-0.59); Monocytes % (auto) 10.8 %; Neutrophils # (auto) 5.71 K/uL (1.40-6.50); Neutrophils % (auto) 75.5 %; Platelet Count 154 K/uL (130-400); RDW Coefficient of Variation 20.9 % (11.5-14.5); RDW Standard Deviation 77.7 fL (36.4-46.3); Red Blood Count 3.19 M/uL (4.20-5.40); White Blood Count 7.56 K/ul (4.8-10.8)
[2024-12-09 07:04] LABS: Anisocytosis Present; Echinocytes 1+; Polychromasia 2+; Tear Drop Cells 1+
[2024-12-09 07:05] LABS: Calcium 8.4 mg/dl (8.6-10.3); Potassium 4.5 mmol/L (3.5-5.1)
[2024-12-09 07:11] LABS: BUN Creatinine Ratio 21.2 (10-20); Creatinine Clr Calc Pharmacy 60.3 ml/min; INR 2.1 (0.9-1.1)
[2024-12-09 08:22] VITALS: RESP 18
--- NOTE | 2024-12-09 10:04 | Orthopedic Progress Note ---
Date of Service December 09, 2024 Assessment & Plan (1) Postoperative wound infection: Plan: IMPRESSION: POD #7 s/p I&D Left hip and wound vac placement, with Pseudomonas aeruginosa infection; 2 weeks s/p I&D Left hip, with E. Coli, Klebsiella, Porphyromonas somerae, Pseudomonas aeruginosa infection; 4 weeks s/p ORIF L hip fracture. Vitals have remained stable. Hemoglobin 10.1. PLAN: Patient likely to be discharged today to [facility]. She is a little apprehensive but feels ready to be discharged. Tigertexted Dr. Fitch who is out this week, but he is comfortable with this plan. Wound VAC canister is now full which had been applied 12/05/2024. Nursing is catarina re and new canister will be placed from the store room. Left hip wound cultures taken in the OR 12/02 positive for Pseudomonas aeruginosa and Enterococcus faecalis ID recommendation appreciated: on 12/10, change IV Abx to PO regimen consisting of levofloxacin 750mg PO daily and linezolid 600mg PO bid ending 12/23 (this end date will be 3 weeks total from last I+D on 12/02 and a little over 2 weeks of Tx for E faecalis) further extension of Abx from that point to be determined at that time PT/OT WBAT LLE OOB to chair Continue pain control Continue Wound vac, with Silver foam x 2 weeks, will be changed by wound care at [facility]. Continue care per primary service Updated appointment for 12/15/2024 placed in discharge tab. Will obtain x-rays at that visit. Dr Fitch is out this week and Dr Louis/PSO will be covering for him (2) Right leg DVT: Plan: Bilateral Doppler was positive for a small clot in the right posterior tibial vein. Coumadin was increased to 5 mg from previously ordered 3. Symptoms have improved. She does not have any edema or redness to the lower extremities. (3) Closed fracture of left hip: Admission and Anticipated Discharge Date Admission Date: November 06, 2024 Segundo Martinez is seen in bed this morning. Overall she states that she is doing okay. She is a little fatigued from having her bed changed this morning, but overall is managing well. States that the back of her lower legs feel a little sore but no significant pain. She feels comfortable being discharged to [facility] today. No numbness or tingling in her toes. Physical Exam Constitutional: Resting in bed. Mildly fatigued but overall spirits are positive. Cardiovascular: Left DP pulse and right PT pulse 2+ Musculoskeletal: Left lower extremity: Wound VAC foam dressing is present over the lateral hip with good suction. The canister is now full. No superficial tenderness to palpation about the left hip. Bilateral posterior calves with mild tenderness however there is no redness or edema in the lower legs. Strength 5/5 with bilateral ankle plantarflexion, dorsiflexion, eversion Neurologic: No sensory deficits bilateral lower extremities to light touch L3-S1 distribution. Results & Data Vital Signs (Past 12 Hours) Vital Signs Temp Pulse Pulse Resp BP Pulse Ox O2 Del Method 12/09/24 09:00 Room Air 12/09/24 08:00 97.7 F 70 18 118/68 96 Room Air 12/09/24 04:19 97.5 F L 73 16 103/70 95 Room Air 12/08/24 23:00 76 12/08/24 22:31 97.5 F L 68 18 96/60 L 96 Room Air Laboratory Results 12/09/24 06:08 WBC 7.56 RBC 3.19 L Hgb 10.1 L Hct 32.3 L MCV 101.3 H MCH 31.7 MCHC 31.3 L RDW Std Deviation 77.7 H RDW Coeff of Gifty 20.9 H Plt Count 154 MPV 10.9 Immature Gran % (Auto) 2.8 Neut % (Auto) 75.5 Lymph % (Auto) 8.9 [place] % (Auto) 10.8 Eos % (Auto) 1.3 Baso % (Auto) 0.7 Neut # (Auto) 5.71 Lymph # (Auto) 0.67 L [place] # (Auto) 0.82 H Eos # (Auto) 0.10 Baso # (Auto) 0.05 Immature Gran # (Auto) 0.21 H Polychromasia 2+ Anisocytosis Present Tear Drop Cells 1+ Echinocytes 1+ PT 21.0 H INR 2.1 H Sodium 132 L Potassium 4.5 Chloride 104 Carbon Dioxide 21 Anion Gap 7 BUN 21 Creatinine 0.99 Est Cr Clr Drug Dosing 60.3 eGFR 59.83 BUN/Creatinine Ratio 21.2 H Glucose 104 H Calcium 8.4 L Anaplasma Smear See Comment Babesia Smear See Comment (2) Right leg DVT Affected thrombotic vein of extremity: tibial Chronicity: unspecified Qualified Code(s): I82.441 - Acute embolism and thrombosis of right tibial vein (3) Closed fracture of left hip Encounter type: initial encounter Qualified Code(s): S72.002A - Fracture of unspecified part of neck of left femur, initial encounter for closed fracture
--- NOTE | 2024-12-09 11:03 | Discharge Summary ---
Date of Service December 09, 2024 Admission HPI Per Admitting Provider 74-year-old female from [place] visiting [place] and the son is surgeon in our hospital with past medical history significant for hypertension, CHF is status post fall and left hip fracture. Patient says she has chronic pain in the left hip. Lately walking with a cane and has difficulty ambulating.. Patient says she can walk about a block slowly but family does not think so. She was trying to sit in a chair today when she slipped and fell down in the sitting position and hurt her left hip. Did not hit her head. No loss of consciousness. Having lot of pain in the left hip region. Denies any headache. No dizziness. She has cataract in left eye and vision is not that great in that eye. No headache. No runny nose or sore throat. No recent fevers. Denies chest pain. No shortness of breath. No nausea. No abdominal pain. Normal bowel and bladder movements. Currently hemodynamics okay. Past medical history. As mentioned above Past surgical history. Cholecystectomy. Appendectomy. Tonsillectomy. Social history. Quit smoking 5 years ago. Alcohol occasionally. Family history. Father had heart attack at the age of 36. Mother had pancreatic cancer. Sister had cervical cancer and rectal cancer. Admission Exam Per Admitting Provider General- Not in distress Head- atraumatic Eyes- PERRL, EOMI. ENT- oropharynx clear Neck- supple, no JVD. Lungs- clear to auscultation no wheezing or crackles Heart- regular rhythm; Systolic murmur, no gallop. Abdomen- normal bowel sounds, soft, nontender, no distension Extremities- B/L lower extremity chronic skin changes seen. Left lower extremity is shortened and externally rotated Neuro- alert, oriented PERRL, EOMI; no facial palsy; no dysarthria Principal Diagnosis Closed left hip fracture Secondary to mechanical fall --S/P open reduction internal fixation left hip by Dr. Fitch on 11/07/2024 Post operative Wound infection- left hip outside the joint --Status post I&D of left hip on 11/23/2024 --Status post repeat I&D of hip with wound VAC placement on 12/02/2024 Postoperative acute blood loss anemia Discharge Exam Constitutional: Alert oriented x 3; not in any distress. Respiratory: bilateral vesicular breath sound Cardiovascular: irregular, no murmur, no edema Vessels: no JVD or carotid bruit Chest: normal inspection of chest Abdomen: normal bowel sounds, soft, nontender, no hepatosplenomegaly Musculoskeletal: Dressing with wound VAC intact on left hip Neurologic: PERRL, EOMI, accommodation nl, no face palsy, no dysarthria CN's II- XI intact bilaterally and moves all extremities Discharge Data Allergies Allergy/AdvReac Type Severity Reaction Status Date / Time Penicillins Allergy Itching Verified 11/26/24 15:13 Consultations 11/06/24 21:21 ED Decision to Admit Stat 11/07/24 08:00 Consult Cardiology Routine Consult Orthopedic Surgery Routine 11/07/24 16:43 Consult Exterminator Termite Routine 11/08/24 15:22 Burn CD for patient Stat 11/24/24 09:50 Consult Infectious Diseases Routine Procedures Performed Operation Date: 12/02/24 12:50 Actual Procedures p Left Repeat Incision and Drainage Hip with Wound Vac Placement(Left) - Silver Mariam Fitch MD Ordered Studies 11/07/24 07:00 FL femur LT 2V Routine 11/07/24 16:52 US point of care ultrasound Urgent 11/08/24 11:21 CT hip LT w con Stat CT leg [CT femur LT w con] Urgent 11/08/24 11:26 CT Abd and Pelvis [CT abd pelvis IV con only] Urgent 11/14/24 08:50 US renal/blad retro comp Routine 11/22/24 08:32 CTA pelvis wo/w con [CT angio pelvis wo/w con] Urgent 12/01/24 10:45 US venous doppler LE BI Stat Hospital Course (1) Closed left hip fracture: (2) Chronic heart failure with preserved ejection fraction: (3) Atrial fibrillation with controlled ventricular response: (4) Moderate mitral regurgitation: Plan 74-year-old female from [facility] with past medical history significant for hypertension, CHF who is status post fall with left hip fracture, s/p ORIF on 11/07/24 with postop anemia and hypotension requiring transfer to the ICU. Closed left hip fracture Secondary to mechanical fall --S/P open reduction internal fixation left hip by Dr. Fitch on 11/07/2024 Post operative Wound infection- left hip outside the joint --Status post I&D of left hip on 11/23/2024 --Status post repeat I&D of hip with wound VAC placement on 12/02/2024 Postoperative acute blood loss anemia Patient presented with closed hip fracture after mechanical fall; underwent ORIF on 11/07/2024. The postoperative period was complicated by wound infection for which she underwent I&D on 11/23 along with wound VAC placement in 12/02. Wound culture from 11/23:E coli, Klebsiella oxytoca, Soto ornithinolytica, Porphyromonas, Pseudomonas Wound culture from 12/02- E. Faecalis, P. aeruginosa Treated with cefepime, Flagyl p.o. along with daptomycin; until 12/09. On 12/10plan to switch over to p.o. levofloxacin 750 mg daily along with linezolid 600 mg twice daily ending in 12/23. Further extension of treatment to be determined by local ID follow-up. Continue wound VAC as per wound care Patient discharged to Acute Rehab Hypotensive Shock- Resolved Pt with postop hypotensive shock requiring transfer to the ICU Required vasopressor support x2 Was on midodrine 10mg TID, hydrocortisone and florinef for adrenal support- Florinef discontinued. Discharged on midodrine to 5 mg 3 times daily Acute Blood Loss Anemia post op, required transfusion Received a letter by Felipa Moon who is the global creative chairman of tissue and blood committee regarding patient being transfused a unit of packed RBC on 11/09/2024 from a donor who had been diagnosed on 12/05/2024. "The donor felt well at the time of the original donation back in late September. Babesiosis is known to carry a risks of being transmitted to transfuse products, even those collected from asymptomatic individuals. A risk for disease tra nsmission exist, with highest risk in immunocompromised or asplenic patients. The window from time of donation to the time of diagnosis is approximately 2 months. Typically, the incubation period for Babesia is 1 to 4 weeks and likely the donor was not infected at the time of the donation". This was discussed with patient and patient's son; Babesia smear was neg. PC:R pending at [facility]. To be followed up in the Rehab Right lower extremity DVT --Venous doppler:Small amount of DVT at the right lower extremity. No DVT seen on the left. INR therapeutic. discharged on 7.5mg once a day; to be adjusted based on PT/INR. obtain PT/INR daily. Acute depression Feels very depressed and wanted to have some help Appreciate psychiatrist input and recommendation Plan to start duloxetine 20 mg daily after about 4 weeks to decrease the risk of bleeding She is agreeable to start duloxetine 20 mg daily after about 4 weeks; patient shouldn't be on linezolid when it is restarted. Acute on Chronic heart failure with preserved EF treated with iv lasix; no diuretics at discharge as patient appears euvolemic. Continue metoprolol succinate 50 mg every morning, 25 mg every afternoon Monitor volume status closely Valvular heart disease --ECHO: Moderate concentric LVH, focal thickening of basal septum with cavity obliteration at mid ventricular level. Septal motion is consistent with conduction abnormality. EF 65 to 70%. Left atrium is severely dilated. Aortic valve leaflets are moderately calcified. Mild to moderate valvular aortic stenosis. Severe mitral annular calcification. Mitral valve leaflets appear mobile. Mild mitral stenosis. Severe mitral regurgitation. --Continue current medications Follow-up with cardiology on discharge Atrial Fibrillation with RVR Was on IV amiodarone, then transitioned to oral amiodarone before being discontinued. Continue metoprolol succinate, on coumadin at discharge. Please note the above document was generated using voice recognition software. It may contain grammatical, syntax or spelling errors. Any formal questions or concerns about the content, text or information contained within the body of this dictation should be directly addressed to the provider for clarification Total Time Total Time Spent Total Time Spent (In Minutes): 60 Total Time Includes: Examination of the Patient, Discharge Planning, Medication Reconciliation, Communication With Other Providers and Other Discharge Plan Discharge Items Patient Disposition: Transfer Inpatient Rehab Fac Reason For Visit: LEFT HIP FRACTURE, NEW A FIB? Discharge Diagnosis: Closed left hip fracture: Secondary to mechanical fall S/P left hip repair Hypotensive shock Atrial fibrillation with rapid ventricular response Valvular Heart disease Acute Blood Loss Anemia Depression Left hip hematoma/wound Condition on Discharge: Fair Activity: As commented below Exercise/Sports: Gradually increase as tolerated Exercise Comment: Weightbearing as tolerated left lower extremity Non-emergency contact: Primary Care Provider, Surgeon and Environmental Services Coordinator Call non-emergency contact if: you have any medication questions, your symptoms worsen, your pain is not controlled, your pain is concerning for you, you have a fever, your temperature is above 101.5, your wound has increased redness, your wound has increased drainage and your wound pain has increased Follow-up/Referrals: Kamla Beard PA-C [Physician Blending Operator] - 12/15/24 12:45 pm () PCP,NO [Primary Care Provider] - Diet: Heart Healthy Addtl Attending Provider Instructions: You are prescribed following antibiotics; Take Levaquin 750 mg once a day for 14 days(end date is December 23, 2024) Take linezolid 600 mg twice a day for 14 days (end date is December 23). MAINTAIN DIETARY RESTRICTION WHILE ON LINEZOLID. DONT START SSRI PRIOR TO COMPLETION OF LINEZOLID COURSE. Please repeat PT/INR daily and modify dose of Coumadin based on the PT/INR. The goal PT/INR is between 2-3 Please follow-up on Babesia and Anaplasma PCR that was sent on the day of the discharge of the hospital. Follow-up with your primary care physician in 1 week upon discharge from rehab facility Follow-up with your lifestyle block farmer Dr. Rodriguez as recommended. Office will call you with appointment Follow-up with infectious disease of your choice in 2 weeks as recommended Get weekly blood test: Complete blood count with differential, comprehensive metabolic panel, ESR, CRP Consider to take duloxetine 20 mg daily to help with your mood after 4 weeks from time of surgery to minimize your risk for bleeding. Seek immediate medical attention if your symptoms reoccur or worsen Please review medication list provided on discharge for any medication changes as instructed. Please call if you have any questions or problems. You can reach a [facility] hospitalist on duty at [facility] 24 hours a day by calling [phone] Call your Primary Care doctor if any of the following symptoms or problems start or get worse: * Shortness of breath or difficulty breathing * Wake up at night short of breath * Chest pain * Cough * Swelling of your hands, feet, or legs * More fatigued or tired with your normal activity * Palpitations - sudden fast heart beats WEIGHT * Weigh yourself every morning after using the bathroom. * Use the same scale. * Wear the same amount of clothing. * Write your weight down on a chart. * Call your Primary Care doctor if you gain more than 2-3 pounds in 1-2 days. MEDICATIONS * Use this discharge instruction sheet for medication instructions. * Take your medications at the time your doctor ordered. * Do not skip a dose of your medicines. * If you miss a dose of medicine, take it as soon as possible, but DO NOT DOUBLE A DOSE. * Read your medicine information when you get home. * Know all of the side effects of your medicine. If in doubt, ask your pharmacist * Call your Primary Care doctor's office if you have any side effects. * Be sure all of your doctors know what medicine and herbs you take (including cold, flu, and herbal medicine). Take the following with you to your follow-up doctor appointments: * Weight Chart * Medication List * List of questions Do not drink excessive alcohol, beer or wine. Addtl Veterinary Meat Inspector Provider Instructions: ORTHOPEDIC DISCHARGE INSTRUCTIONS -Weight bearing as tolerated with walker to assist in ambulation -Please do rehab exercises as instructed, range of motion of the hip as tolerated -You may sponge bathe. Keep the incision dry. -DVT prophylaxis/treatment per primary service with coumadin. -Antibiotics: Per infectious disease recommendations - on 12/10, change IV Abx to PO regimen consisting of levofloxacin 750mg PO daily and linezolid 600mg PO bid ending 12/23 (this end date will be 3 weeks total from last I+D on 12/02 and a little over 2 weeks of Tx for E faecalis) further extension of Abx from that point to be determined at that time -Labs: Please obtain weekly labs including CBC with diff, CMP, ESR, CRP and CPK -Pain control: Per your primary team -Follow up as scheduled with [facility] for post op evaluation and s uture removal. Please call our office sooner @ [phone] if you have any questions or concerns Pending Studies at Discharge: Yes (BABESIA PCR AND ANAPLASMA PCR) Stand-Alone Forms: My [facility] Skilled Items Patient informed of condition?: Yes DNR: No Discharge Level of Care: Acute rehab Communicable Disease: No Discharge Prognosis: Other Lines: None Urinary Catheter: No Medications and DC Order Prescriptions: New sennosides [Senokot] 8.6 mg Tablet 17.2 mg PO QAM 30 Days Qty: 60 0RF polyethylene glycol 3350 [Miralax] 17 gram Powder In Packet 17 g PO DAILY 30 Days Qty: 30 0RF metoprolol succinate 50 mg Tablet Extended Release 24 Hr 50 mg PO QAM 30 Days Qty: 30 0RF potassium chloride 20 mEq Tablet,Er Particles/Crystals 20 meq PO QAM 30 Days Qty: 30 0RF linezolid 600 mg Tablet 600 mg PO BID 14 Days Qty: 28 0RF bisacodyl 10 mg Suppository 10 mg HI DAILY PRN (Reason: constipation) 30 Days Qty: 30 0RF pantoprazole 40 mg Tablet,Delayed Release (Dr/Ec) 40 mg PO QAM 30 Days Qty: 30 0RF docusate sodium 100 mg Capsule 100 mg PO BID 30 Days Qty: 60 0RF midodrine 2.5 mg Tablet 5 mg PO TID@0800,1200,1700 30 Days Qty: 30 0RF metoprolol succinate 25 mg Tablet Extended Release 24 Hr 25 mg PO HS 30 Days Qty: 30 0RF levofloxacin 750 mg Tablet 750 mg PO Q24H 14 Days Qty: 14 0RF oxycodone 5 mg Tablet 5 mg PO Q4H PRN (Reason: pain) Qty: 5 0RF magnesium chloride [Mag 64] 64 mg Tablet,Delayed Release (Dr/Ec) 64 mg PO BID 30 Days Qty: 60 0RF cholecalciferol (vitamin D3) 125 mcg (5,000 unit) Tablet 125 mcg PO QAM 30 Days Qty: 30 0RF warfarin 7.5 mg tablet 7.5 mg PO DAILY Qty: 30 0RF Discontinued carvedilol 25 mg tablet 25 mg PO BID lisinopril 20 mg tablet 20 mg PO DAILY hydrochlorothiazide 25 mg tablet 25 mg PO DAILY Discharge Orders: Discharge Order (Routine); Ordered 12/09/24 Ordered By: Cristian Rodriguez Admission Data Admit Date/Time: 11/06/24 21:46 Attending Provider: Cristian Rodriguez Admit Provider: Dong Paulson Primary Care Provider: PCP,NO Other Providers: [facility]; Laurita Borrero; IRB Approved Study,Sarath; Olegario Veloz; Dong Paulson; Jame Acevedo; Silver Fitch; Suhail Peter
[2024-12-09 11:42] VITALS: BP 102/74; PULSE 85; TEMP 97.5; O2SAT 95
[2024-12-09] MEDS: ACETAMINOPHEN 325 MG TAB PO PRN (14:58)
[2024-12-10] MEDS ORDERED: LINEZOLID 600 MG TAB PO SCH (09:00)
[2024-12-10] MEDS ORDERED: levoFLOXacin 750 MG TAB PO SCH (11:00)
[2024-12-12 21:43] LABS: Babesia microti DNA Not Detected (Not Detected)
== END 2024-12-09 16:40 | DRG 480 ==
LOC: ED 19:41 → SUATTDRO 21:46 → 2E 21:46 → 1E 11-07 16:51 → 2S 11-14 20:58 → 2W 11-23 16:28 → 2S 12-02 20:25
PROC: M.IDHIP (2024-11-23 07:30)

== ENCOUNTER 2024-12-25 16:45 | Inpatient (IN) ==
--- NOTE | 2024-12-25 17:12 | Emergency Department Note ---
Impression & Plan Complication, postoperative infection, Osteomyelitis, Dehiscence of operative wound ED Provider Note NAME: COLTEN ALVARES AGE: 74 SEX: F : 1950 ARRIVES VIA: Ambulance INFORMANT: Patient, EMS ED PROVIDER(S): Drew Harry DO CHIEF COMPLAINT: Evaluation HPI: The patient is a 74-year-old female who presented to the emergency department for an evaluation. The patient's had problems with a fracture of her left hip and has had problems with healing of her left hip surgical site. It is unclear exactly why the patient is here. She states that she does take blood thinners. She is notices no bleeding but she notices a large defect over her left hip surgical site. The patient denies having any chest pain. She has been experiencing some shortness of breath over the last few weeks. She denies having any leg swelling or leg pain ROS: See above HPI for pertinent positives & negatives. A total of 10 systems reviewed and were otherwise negative. PAST MEDICAL HISTORY: See Below PAST SURGICAL HISTORY: See Below FAMILY HISTORY: See Below SOCIAL HISTORY: See Below HOME MEDICATIONS: See Below ALLERGIES: See Below VITALS: See Below PHYSICAL EXAMINATION: GENERAL: Patient is awake alert in no acute distress patient is resting comfortably and showing no signs of anxiety EYES: The conjunctivae are clear. The pupils are round and reactive. EARS, NOSE, MOUTH AND THROAT: The nose is without any evidence of any deformity. NECK: The neck is nontender and supple. RESPIRATORY: Normal respiratory effort is noted there is no evidence of wheezing rhonchi or rales CARDIOVASCULAR: Regular rate and rhythm noted there no murmurs rubs or gallops normal S1 normal S2. GASTROINTESTINAL: The abdomen is soft. Abdomen is nontender. MUSCULOSKELETAL/EXTREMITIES: There is no evidence of gross deformity full range of motion is noted in the hips and shoulders. SKIN: There is a large defect over the left hip. The wound has completely dehisced. Wound packing is in place. Pedal edema was noted bilaterally. NEUROLOGIC: Patient is awake alert and oriented x3 MEDICAL DECISION MAKING: The patient is a 74-year-old female who presented to the emergency department for an evaluation of a wound dehiscence. The patient's been having problems with complications after a hip surgery. She has a large defect over the lateral aspect of her left hip. This was treated with a wound VAC as well as antibiotics. This was recently stopped and the patient started to worsen. She was at a personal senior care but was sent to the emergency department from the personal-senior care. Initially the patient was felt to be a good candidate to go back to her inpatient rehab. I discussed her laboratory and radiographic studies with the physician at the rehab. He is agreed to accept the patient but then contacted me again to let me know that the patient was recommended inpatient treatment by the orthopedic physician. For this reason I discussed the patient's condition with the on-call [facility]. Triage Nursing notes reviewed. Prior medical records reviewed Vital Signs: reviewed and remarkable for no significant abnormalities Differential diagnosis: Cellulitis, abscess, MRSA infection, DVT, necrotizing fasciitis, dermatitis, drug eruption, allergic reaction, as well as other pathologies. ER treatment provided: See below Diagnostics interpreted by me: ECG: EKG was obtained in the emergency department. My interpretation is atrial fibrillation at 77 bpm. No PVCs were noted. Nonspecific ST and T wave abnormalities were noted. LVH was suggested by voltage criteria. This was compared to a tracing from November 26, 2024. The atrial fibrillation is not new but the T wave abnormalities do appear increased compared to previous. Cardiac Monitoring: An order was placed for continuous cardiac monitoring. The monitor shows a rate of 83 bpm with atrial fibrillation Laboratory studies: As stated above and show below. Imaging studies: See below. Radiographic imaging was reviewed by myself Consultation(s): I discussed this case with Dr. Kilgore who is on it [facility]. I discussed this case with Dr. Davis who is on-call for the [facility]. Past Med/Surg History Problem List (Updated 12/25/24 @ 22:21 by Drew Harry DO) Dehiscence of operative wound (Acute) Osteomyelitis (Acute) Complication, postoperative infection (Acute) Depression Hip pain Acute blood loss anemia Shock circulatory Atrial fibrillation (Acute) Fall (Acute) Closed fracture of left hip (Acute) Chronic heart failure with preserved ejection fraction Atrial fibrillation with controlled ventricular response Moderate mitral regurgitation Severe mitral valve stenosis Closed left hip fracture Medical History Encounter for pre-operative examination Right leg DVT Postoperative wound infection Atrial fibrillation with rapid ventricular response (HFpEF) heart failure with preserved ejection fraction Acute on chronic heart failure with preserved ejection fraction (HFpEF) Mitral stenosis Severe mitral insufficiency Ex-smoker Severe pulmonary hypertension Aortic stenosis CHF (congestive heart failure) Social History Smoking Status: Never smoker Hx Alcohol Use: Yes Alcohol type: wine Hx Substance Use: No Preferred Language: [place] Communication Ability: Effective 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 Beliefs That Will Affect Care: None Current Living Situation: Spouse Feels Safe at Home: Yes Assistive Devices: Cane Allergies Allergies Allergy/AdvReac Type Severity Reaction Status Date / Time Penicillins Allergy Itching Verified 11/26/24 15:13 Home Meds Previous Rx's Medication Instructions Recorded bisacodyl 10 mg rectal suppository 10 mg AR DAILY PRN constipation 30 12/09/24 days #30 ea cholecalciferol (vitamin D3) 125 125 mcg PO QAM 30 days #30 tabs 12/09/24 mcg (5,000 unit) tablet docusate sodium 100 mg capsule 100 mg PO BID 30 days #60 caps 12/09/24 magnesium chloride 64 mg 64 mg PO BID 30 days #60 tabs 12/09/24 (magnesium chloride) tablet,delayed release (Mag 64) metoprolol succinate 25 mg 25 mg PO HS 30 days #30 tabs 12/09/24 tablet,extended release 24 hr metoprolol succinate 50 mg 50 mg PO QAM 30 days #30 tabs 12/09/24 tablet,extended release 24 hr midodrine 2.5 mg tablet 5 mg (2 x 2.5 mg) PO 12/09/24 TID@0800,1200,1700 30 days #30 tabs oxycodone 5 mg tablet 5 mg PO Q4H PRN pain #5 tabs 12/09/24 pantoprazole 40 mg tablet,delayed 40 mg PO QAM 30 days #30 tabs 12/09/24 release polyethylene glycol 3350 17 gram 17 g PO DAILY 30 days #30 ea 12/09/24 oral powder packet (Miralax) potassium chloride 20 mEq 20 meq PO QAM 30 days #30 tabs 12/09/24 tablet,extended release(part/cryst) sennosides 8.6 mg tablet (Senokot) 17.2 mg (2 x 8.6 mg) PO QAM 30 12/09/24 days #60 tabs warfarin 7.5 mg tablet 7.5 mg PO DAILY #30 tabs 12/09/24 Results & Data (ED) Vital Signs Vital Signs - 24 hr 12/25/24 16:53 12/25/24 17:53 12/25/24 17:53 Temperature 36.7 C Temperature Source Oral Pulse Rate 74 Pulse Rate from SpO2 Sensor Respiratory Rate 18 16 Respiratory Effort / Characteristics Non-Labored Spontaneous Respiratory Depth Normal Blood Pressure 108/69 Blood Pressure Mean 82 Pulse Oximetry 92 Oxygen Delivery Method Room Air Room Air Sepsis Recent Fever Within 48 Hours No Sepsis New/Unexplained Change in Mental Status No Sepsis Action Taken by Nursing No Action Required 12/25/24 18:08 12/25/24 19:05 12/25/24 20:01 Temperature Temperature Source Pulse Rate 73 68 75 Pulse Rate from SpO2 Sensor Respiratory Rate 18 17 Respiratory Effort / Characteristics Respiratory Depth Blood Pressure 111/69 124/74 Blood Pressure Mean 89 87 Pulse Oximetry 92 91 Oxygen Delivery Method Sepsis Recent Fever Within 48 Hours Sepsis New/Unexplained Change in Mental Status Sepsis Action Taken by Nursing 12/25/24 21:00 12/25/24 21:42 12/25/24 21:43 Temperature Temperature Source Pulse Rate 80 75 66 Pulse Rate from SpO2 Sensor 68 Respiratory Rate 24 26 H 18 Respiratory Effort / Characteristics Respiratory Depth Blood Pressure 116/68 Blood Pressure Mean 84 Pulse Oximetry 91 89 L 92 Oxygen Delivery Method Sepsis Recent Fever Within 48 Hours Sepsis New/Unexplained Change in Mental Status Sepsis Action Taken by Nursing 12/25/24 21:59 Temperature Temperature Source Pulse Rate 83 Pulse Rate from SpO2 Sensor Respiratory Rate Respiratory Effort / Characteristics Respiratory Depth Blood Pressure Blood Pressure Mean Pulse Oximetry Oxygen Delivery Method Sepsis Recent Fever Within 48 Hours Sepsis New/Unexplained Change in Mental Status Sepsis Action Taken by Assisted Medications Current Medication List: was personally reviewed by me Laboratory Data Attestation: I reviewed the patient's lab results. 12/25/24 17:55 12/25/24 17:55 Lab Results 12/25/24 12/25/24 Range/Units 17:55 19:42 WBC 7.40 (4.8-10.8) K/ul RBC 3.57 L (4.20-5.40) M/uL Hgb 10.9 L (12.0-16.0) g/dl Hct 34.2 L (37.0-47.0) % MCV 95.8 (80.0-100.0) fL MCH 30.5 (25.0-34.0) pg MCHC 31.9 L (32.0-36.0) g/dL RDW Std Deviation 62.4 H (36.4-46.3) fL RDW Coeff of Gifty 17.6 H (11.5-14.5) % Plt Count 43 L (130-400) K/uL MPV 12.5 H (9.4-12.4) fL Immature Gran % (Auto) 0.4 % Neut % (Auto) 89.4 % Lymph % (Auto) 8.8 % [place] % (Auto) 1.1 % Eos % (Auto) 0.0 % Baso % (Auto) 0.3 % Neut # (Auto) 6.62 H (1.40-6.50) K/uL Lymph # (Auto) 0.65 L (1.20-3.40) K/uL [place] # (Auto) 0.08 L (0.11-0.59) K/uL Eos # (Auto) 0.00 (0.00-0.50) K/uL Baso # (Auto) 0.02 (0.00-0.20) K/uL Immature Gran # (Auto) 0.03 (0.01-0.20) K/uL PT 25.5 H (9.0-12.0) Seconds INR 2.6 H (0.9-1.1) APTT 36 H (21-31) Seconds PTT Ratio 1.3 Sodium 131 L (136-145) mmol/L Potassium 4.8 (3.5-5.1) mmol/L Chloride 101 (98-107) mmol/L Carbon Dioxide 21 (21-32) mmol/L Anion Gap 9 (3-11) BUN 35 H (6-23) mg/dl Creatinine 1.12 (0.6-1.2) mg/dl Est Cr Clr Drug Dosing 52.2 ml/min eGFR 51.60 BUN/Creatinine Ratio 31.3 H (10-20) Glucose 112 H (70-99(Fasting)) mg/dl Lactate 3.0 H* 2.6 H* (0.4-2.0) mmol/L Calcium 8.7 (8.6-10.3) mg/dl Magnesium 1.9 (1.7-2.4) mg/dl Total Bilirubin 0.9 (0.2-1.0) mg/dl Direct Bilirubin 0.3 H (0-0.2) mg/dl AST 11 L (13-39) U/L ALT 6 L (7-52) U/L Alkaline Phosphatase 95 (34-104) U/L Troponin I High Sens 35.8 H 30.3 H (0-14) pg/ml C-Reactive Protein 3.88 H (0-0.5) mg/dl Total Protein 6.5 (6.0-8.3) gm/dl Albumin 3.3 L (3.4-5.0) gm/dl Procalcitonin 0.05 (0-0.5) ng/ml TSH 6.316 H (0.300-4.500) uIu/ml Free T4 0.93 (0.61-1.60) ng/dl Digoxin 1.1 (0.8-2.0) ng/ml Administered Medications Meropenem 500 mg/ Syringe 10 mls @ 2 mls/min IV Q6H AFSHAN; Protocol Stop: 02/05/25 20:59 Last Admin: 12/25/24 21:42 Dose: 2 mls/min Documented By: JAMIA Daptomycin 500 mg/ Syringe 10 mls @ 5 mls/min IV Q24H AFSHAN; Protocol Stop: 02/05/25 20:59 Last Admin: 12/25/24 21:42 Dose: 5 mls/min Documented By: JAMIA Discontinued Medications Ceftriaxone Sodium (Rocephin) 2,000 mg in 50 mls @ 100 mls/hr IV NOW STA Stop: 12/25/24 19:30 Last Infusion: 12/25/24 19:36 Dose: Infused Documented By: Admin: 12/25/24 19:05 Dose: 100 mls/hr Documented By: JAMIA Vancomycin HCl 2,500 mg/ (Sodium Chloride) 550 mls @ 200 mls/hr IV NOW ONE Stop: 12/25/24 21:45 Last Admin: 12/25/24 20:15 Dose: Not Given Documented By: JAMIA Piperacillin Sod/Tazobactam Sod (Zosyn) 4.5 gm in 100 mls @ 200 mls/hr IV NOW ONE; Protocol Stop: 12/25/24 20:34 Last Admin: 12/25/24 20:15 Dose: Not Given Documented By: JAMIA Albumin Human (Albumin 25%) 25 gm in 100 mls @ 50 mls/hr IV ONE ONE Stop: 12/25/24 22:06 Last Admin: 12/25/24 22:18 Dose: 50 mls/hr Documented By: JAMIA Midodrine (Midodrine Hcl 2.5 Mg Tab) 5 mg PO NOW STA Stop: 12/25/24 20:07 Last Admin: 12/25/24 20:59 Dose: 5 mg Documented By: JAMIA Imaging Data Attestation: I personally reviewed and interpreted this imaging study as follows: My Impression: 1 view chest x-ray was obtained in the emergency department. My interpretation is mild volume overload, final report below. Radiologist's Impression: Chest X-Ray 12/25/24 17:01 Clinical History: Sepsis Technique: A frontal view of the chest was obtained Comparison is made to the prior examination dated 11/26/2024 Findings: There is diffuse interstitial prominence, concerning for pulmonary edema superimposed on emphysema. The heart is enlarged. No pneumothorax is seen. There are small bilateral pleural effusions No fracture is noted. No foreign body is seen Impression: Suspected congestive heart failure with cardiomegaly, pulmonary edema, and small bilateral pleural effusions ACT 112: Positive. There are findings on this exam that require communication between the performing entity and the patient following Patient Test Result [place] ([place] 112) guidelines. Electronically signed by Vladimir Dickson 12-25-2024 6:22 PM Hip/Pelvis X-Ray 12/25/24 17:01 Clinical History: Infection 7 views of the pelvis and left hip are submitted for review. Comparison is made to the prior examination dated 11/30/2024 Findings: There is unchanged internal fixation of the left femoral neck and shaft. There is an unchanged displaced greater trochanter fracture fragment. No new fracture is seen. There is severe left hip osteoarthritis. No other osseous abnormality is identified. There is an apparent Gutierrez catheter There is new soft tissue gas lateral to the left hip. There is some lucency of the greater trochanter Impression: 1. Unchanged left femoral neck fracture with internal fixation in place 2. Severe left hip osteoarthritis 3. New soft tissue gas lateral to the left hip, which could be due to a surgical wound, penetrating injury, or infection with gas-forming organism. Clinical correlation is recommended 4. Possible acute osteomyelitis involving the displaced greater trochanter of the left femur ACT 112: Positive. There are findings on this exam that require communication between the performing entity and the patient following Patient Test Result Information Act [place] ACT 112) guidelines. Electronically signed by Vladimir Dickson 12-25-2024 6:21 PM Discharge Plan Visit Data Chief Complaint: Referred by Doctor Stated Complaint: HIP PAIN ED Provider: Drew Harry Discharge Problem: Complication, postoperative infection, Osteomyelitis, Dehiscence of operative wound Patient Disposition: Being Evaluated by Hospitalist Condition: Fair Forms Stand Alone Forms: [facility] [employer] Prescriptions Prescriptions: No Action sennosides [Senokot] 8.6 mg Tablet 17.2 mg PO QAM 30 Days Qty: 60 0RF polyethylene glycol 3350 [Miralax] 17 gram Powder In Packet 17 g PO DAILY 30 Days Qty: 30 0RF metoprolol succinate 50 mg Tablet Extended Release 24 Hr 50 mg PO QAM 30 Days Qty: 30 0RF potassium chloride 20 mEq Tablet,Er Particles/Crystals 20 meq PO QAM 30 Days Qty: 30 0RF bisacodyl 10 mg Suppository 10 mg AR DAILY PRN (Reason: constipation) 30 Days Qty: 30 0RF pantoprazole 40 mg Tablet,Delayed Release (Dr/Ec) 40 mg PO QAM 30 Days Qty: 30 0RF docusate sodium 100 mg Capsule 100 mg PO BID 30 Days Qty: 60 0RF midodrine 2.5 mg Tablet 5 mg PO TID@0800,1200,1700 30 Days Qty: 30 0RF metoprolol succinate 25 mg Tablet Extended Release 24 Hr 25 mg PO HS 30 Days Qty: 30 0RF oxycodone 5 mg Tablet 5 mg PO Q4H PRN (Reason: pain) Qty: 5 0RF magnesium chloride [Mag 64] 64 mg Tablet,Delayed Release (Dr/Ec) 64 mg PO BID 30 Days Qty: 60 0RF cholecalciferol (vitamin D3) 125 mcg (5,000 unit) Tablet 125 mcg PO QAM 30 Days Qty: 30 0RF warfarin 7.5 mg tablet 7.5 mg PO DAILY Qty: 30 0RF Referrals Referrals: PCP,NO [Primary Care Provider] -
[2024-12-25 18:12] LABS: Hematocrit (blood only) 34.2 % (37.0-47.0); Hemoglobin 10.9 g/dl (12.0-16.0); Immature Granulocytes # (auto) 0.03 K/uL (0.01-0.20); Immature Granulocytes % (auto) 0.4 %; Mean Corpuscular Hemoglobin 30.5 pg (25.0-34.0); Mean Corpuscular Volume 95.8 fL (80.0-100.0); Platelet Count 43 K/uL (130-400); RDW Standard Deviation 62.4 fL (36.4-46.3); Red Blood Count 3.57 M/uL (4.20-5.40); White Blood Count 7.40 K/ul (4.8-10.8)
--- NOTE | 2024-12-25 18:22 | XRay Report ---
Clinical History: Infection 7 views of the pelvis and left hip are submitted for review. Comparison is made to the prior examination dated 11/30/2024 Findings: There is unchanged internal fixation of the left femoral neck and shaft. There is an unchanged displaced greater trochanter fracture fragment. No new fracture is seen. There is severe left hip osteoarthritis. No other osseous abnormality is identified. There is an apparent Gutierrez catheter There is new soft tissue gas lateral to the left hip. There is some lucency of the greater trochanter Impression: 1. Unchanged left femoral neck fracture with internal fixation in place 2. Severe left hip osteoarthritis 3. New soft tissue gas lateral to the left hip, which could be due to a surgical wound, penetrating injury, or infection with gas-forming organism. Clinical correlation is recommended 4. Possible acute osteomyelitis involving the displaced greater trochanter of the left femur ACT 112: Positive. There are findings on this exam that require communication between the performing entity and the patient following Patient Test Result Information Act ([place] ACT 112) guidelines. Electronically signed by Vladimir Dickson 12-25-2024 6:21 PM
--- NOTE | 2024-12-25 18:24 | XRay Report ---
Clinical History: Sepsis Technique: A frontal view of the chest was obtained Comparison is made to the prior examination dated 11/26/2024 Findings: There is diffuse interstitial prominence, concerning for pulmonary edema superimposed on emphysema. The heart is enlarged. No pneumothorax is seen. There are small bilateral pleural effusions No fracture is noted. No foreign body is seen Impression: Suspected congestive heart failure with cardiomegaly, pulmonary edema, and small bilateral pleural effusions ACT 112: Positive. There are findings on this exam that require communication between the performing entity and the patient following Patient Test Result [place] ([place] 112) guidelines. Electronically signed by Vladimir Dickson 12-25-2024 6:22 PM
[2024-12-25 18:29] LABS: Alanine Aminotransferase 6.0 U/L (7-52); Alkaline Phosphatase 95.0 U/L (34-104); Anion Gap 9.0 (3-11); Bilirubin,Total 0.9 mg/dl (0.2-1.0); Blood Urea Nitrogen 35.0 mg/dl (6-23); Calcium 8.7 mg/dl (8.6-10.3); Carbon Dioxide 21.0 mmol/L (21-32); Chloride 101.0 mmol/L (98-107); Creatinine Clr Calc Pharmacy 52.2 ml/min; Glucose 112.0 mg/dl (70-99(Fasting)); Magnesium 1.9 mg/dl (1.7-2.4); Potassium 4.8 mmol/L (3.5-5.1); Sodium 131.0 mmol/L (136-145); Total Protein 6.5 gm/dl (6.0-8.3)
[2024-12-25 18:43] LABS: INR 2.6 (0.9-1.1); Partial Thromboplastin Time 36 Seconds (21-31); Prothrombin Time 25.5 Seconds (9.0-12.0)
[2024-12-25] MEDS ORDERED: VANCOMYCIN CONSULT ACTIVE PRN (19:01)
[2024-12-25] MEDS: cefTRIAXone SODIUM 2,000 MG/50 ML BAG IV STA (19:05)
[2024-12-25] MEDS ORDERED: ACETAMINOPHEN 500 MG TAB PO PRN (20:11)
[2024-12-25] MEDS ORDERED: PROMETHAZINE 6.25 MG/50.25 ML BAG IV PRN (20:12)
[2024-12-25] MEDS: PIPERACILLIN/TAZOBACTAM 4.5 GM/100 ML BAG IV ONE (20:15)
[2024-12-25] MEDS: VANCOMYCIN HCL 2,500 MG in SODIUM CHLORIDE 0.9% 500 ML IV ONE (20:15)
[2024-12-25 20:46] LABS: Thyroid Stimulating Hormone 6.316 uIu/ml (0.300-4.500)
[2024-12-25] MEDS: MIDODRINE HCL 2.5 MG TAB PO STA (20:59)
--- NOTE | 2024-12-25 21:00 | History & Physical Report ---
Date of Service December 25, 2024 Assessment & Plan (1) Osteomyelitis: Plan: Assessment and plan below following discussion of case with ED provider and reviewing patient history/pertinent normal/abnormal diagnostic test results. Left hip osteomyelitis Recent surgery/washout procedures from recent confinement (October and November 2024) Failed outpatient treatment No sepsis for now Asymptomatic troponin elevation chronic diastolic heart failure (EF 65 to 70%, TTE 2024), congestion on imaging without SOB or fluid retention complaints A-fib/recent RLE DVT on Coumadin, INR therapeutic valvular heart disease (severe MR,mild /MS) hypotension on midodrine, BP currently stable Postop anemia, hemoglobin stable at 10 New onset thrombocytopenia past tobacco abuse Admit to med/tele given troponin elevation CS, daptomycin and meropenem (history Pseudomonas with intermediate resistance to Zosyn on recent CS) Orthopedics consult re: left hip osteomyelitis, history surgery (Patient known to Dr. Fitch.) Hold Coumadin for now in anticipation of procedure May need IV heparin interim if Coumadin to be held indefinitely. Reconsult ID Monitor lactic acid response to IVF Decrease maintenance beta-jose dose for now given borderline BP and lactic acidosis DVT prophylaxis. Coumadin INR goal between 2 and 3 if no procedure from orthopedics standpoint Full code Case discussed with Dr. Fitch (patient surgeon) over the phone. Dr. Fitch is currently out of town and requested me to contact Dr. Gotti (on- call orthopedist) for input. Dr. Gotti initially recommended transfer to tertiary care facility for further management after conferring with Dr. Fitch. Dr. Nunez of [facility] discussed case with Dr. Gotti via teleconference. Medical management at [facility] recommended for now. Dr. Gotti requested for Dr. Fitch's group ([facility]) to evaluate p atient in AM. Patient requests for son to be given updates regarding care. Dr. Vimal Lyman, contact #[phone]. Text document was generated using [employer] voice recognition software. It may contain grammatical or spelling errors. Kindly contact undersigned for clarification of any documentation item in question. History of Present Illness Chief Complaint: Left hip wound issues Primary Care Provider: NO PCP History obtained from patient, family, and records. Medical history significant for chronic diastolic heart failure (EF 65 to 70%, TTE 2024), A-fib/recent RLE DVT on Coumadin, valvular heart disease (severe M R,mild /MS), hypotension on midodrine, mood disorder, past tobacco abuse. Recent [facility] confinement last November 06 to December 09, 2024 for traumatic left hip fracture secondary to mechanical fall following recent relocation to [place] from [place]. Patient presented with new onset A-fib at time of admission. Complicated protracted hospital stay. Patient underwent ORIF of left hip (11/07). 2 I&D/washout procedures done during admission due to postop wound infection (11/23, 12/02) Wound cultures grew E. coli, Klebsiella, Enterococcus faecalis, Pseudomonas aeruginosa, [place] ornitholytica, Porphyromonas. Patient discharged to rehab facility on additional 2-week course of levofloxacin and linezolid (last dose 12/17/2024) as per [facility] ID recommendations. Confinement also complicated with hypotension requiring ICU stay and discharged on midodrine Rx. RLE DVT noted on venous ultrasound. Patient discharged on Coumadin Rx for A-fib and blood clot to rehab facility. Wound VAC removed following outpatient wound visit a few days ago as per patient. Patient without unusual hip pain complaints. Unaware of wound status because she is unable to look at it. No fever, no chills. Denies chest pain, SOB. Patient discharged to [facility] personal care facility from [facility] rehab yesterday. Personal care facility had concerns about left hip wound. Patient directed to ER following recommendations of outpatient Orthopedics provider. 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 Allergies Allergy/AdvReac Type Severity Reaction Status Date / Time Penicillins Allergy Itching Verified 11/26/24 15:13 Home Medications Medication Instructions Recorded Confirmed Type bisacodyl 10 mg rectal suppository 10 mg VA DAILY PRN constipation 30 12/09/24 12/25/24 Rx days #30 ea cholecalciferol (vitamin D3) 125 125 mcg PO QAM 30 days #30 tabs 12/09/24 12/25/24 Rx mcg (5,000 unit) tablet docusate sodium 100 mg capsule 100 mg PO BID 30 days #60 caps 12/09/24 12/25/24 Rx magnesium chloride 64 mg 64 mg PO BID 30 days #60 tabs 12/09/24 12/25/24 Rx (magnesium chloride) tablet,delayed release (Mag 64) metoprolol succinate 25 mg 25 mg PO HS 30 days #30 tabs 12/09/24 12/25/24 Rx tablet,extended release 24 hr metoprolol succinate 50 mg 50 mg PO QAM 30 days #30 tabs 12/09/24 12/25/24 Rx tablet,extended release 24 hr midodrine 2.5 mg tablet 5 mg (2 x 2.5 mg) PO 12/09/24 12/25/24 Rx TID@0800,1200,1700 30 days #30 tabs oxycodone 5 mg tablet 5 mg PO Q4H PRN pain #5 tabs 12/09/24 12/25/24 Rx pantoprazole 40 mg tablet,delayed 40 mg PO QAM 30 days #30 tabs 12/09/24 12/25/24 Rx release polyethylene glycol 3350 17 gram 17 g PO DAILY 30 days #30 ea 12/09/24 12/25/24 Rx oral powder packet (Miralax) potassium chloride 20 mEq 20 meq PO QAM 30 days #30 tabs 12/09/24 12/25/24 Rx tablet,extended release(part/cryst) sennosides 8.6 mg tablet (Senokot) 17.2 mg (2 x 8.6 mg) PO QAM 30 12/09/24 12/25/24 Rx days #60 tabs warfarin 7.5 mg tablet 7.5 mg PO DAILY #30 tabs 12/09/24 12/25/24 Rx Past Med/Surg History Problem List (Updated 12/25/24 @ 22:21 by Drew Harry DO) Dehiscence of operative wound (Acute) Osteomyelitis (Acute) Complication, postoperative infection (Acute) Depression Hip pain Acute blood loss anemia Shock circulatory Atrial fibrillation (Acute) Fall (Acute) Closed fracture of left hip (Acute) Chronic heart failure with preserved ejection fraction Atrial fibrillation with controlled ventricular response Moderate mitral regurgitation Severe mitral valve stenosis Closed left hip fracture Medical History Encounter for pre-operative examination Right leg DVT Postoperative wound infection Atrial fibrillation with rapid ventricular response (HFpEF) heart failure with preserved ejection fraction Acute on chronic heart failure with preserved ejection fraction (HFpEF) Mitral stenosis Severe mitral insufficiency Ex-smoker Severe pulmonary hypertension Aortic stenosis CHF (congestive heart failure) Social History Smoking Status: Former smoker Smoking End Date: 5 yrs ago; Second Hand Exposure: No; Tobacco Cessation Education Requested by Patient: No Hx Alcohol Use: Yes Alcohol type: wine Hx Substance Use: No Preferred Language: Mexican Communication Ability: Effective Garnett Feeder Required: No Beliefs That Will Affect Care: None Current Living Situation: Spouse Other Information That Helps Us Care for You: No Feels Safe at Home: Yes Safety Concerns: Feels Safe At This Time Assistive Devices: Denture - Upper, Denture - Lower, Glasses, Walker and Wheelchair Review of Systems Review of Systems: As per HPI, all other systems reviewed and negative Physical Exam Physical Exam: GENERAL: Comfortable, pleasant, obese, no respiratory distress SKIN: Pallor, warm HEENT: Pale palpebral conjunctivae, no ptosis, dry buccal mucosa NECK : Supple, no tenderness CHEST : CTA, no tenderness HEART : Irregular, systolic murmur ABDOMEN: Some distention, nontender EXTREMITIES : Bilateral LE venous stasis without tenderness, open wound left hip with erythematous margins scant drainage, palpable pulses, no other conspicuous deformities noted NEUROLOGIC : Coherent, no facial asymmetry, no other gross focality Results & Data Results & Data Vital Signs (Past 12 Hours) Vital Signs Temp Pulse Resp BP Pulse Ox O2 Del Method 12/25/24 18:08 73 12/25/24 17:53 Room Air 12/25/24 17:53 16 12/25/24 16:53 36.7 C 74 18 108/69 92 Room Air Laboratory Results Laboratory Results WBC 7.40 K/ul (4.8-10.8) 12/25/24 17:55 RBC 3.57 M/uL (4.20-5.40) L 12/25/24 17:55 Hgb 10.9 g/dl (12.0-16.0) L 12/25/24 17:55 Hct 34.2 % (37.0-47.0) L 12/25/24 17:55 MCV 95.8 fL (80.0-100.0) 12/25/24 17:55 MCH 30.5 pg (25.0-34.0) 12/25/24 17:55 MCHC 31.9 g/dL (32.0-36.0) L 12/25/24 17:55 RDW Std Deviation 62.4 fL (36.4-46.3) H 12/25/24 17:55 RDW Coeff of Gifty 17.6 % (11.5-14.5) H 12/25/24 17:55 Plt Count 43 K/uL (130-400) L 12/25/24 17:55 MPV 12.5 fL (9.4-12.4) H 12/25/24 17:55 Immature Gran % (Auto) 0.4 % 12/25/24 17:55 Neut % (Auto) 89.4 % 12/25/24 17:55 Lymph % (Auto) 8.8 % 12/25/24 17:55 [place] % (Auto) 1.1 % 12/25/24 17:55 Eos % (Auto) 0.0 % 12/25/24 17:55 Baso % (Auto) 0.3 % 12/25/24 17:55 Neut # (Auto) 6.62 K/uL (1.40-6.50) H 12/25/24 17:55 Lymph # (Auto) 0.65 K/uL (1.20-3.40) L 12/25/24 17:55 [place] # (Auto) 0.08 K/uL (0.11-0.59) L 12/25/24 17:55 Eos # (Auto) 0.00 K/uL (0.00-0.50) 12/25/24 17:55 Baso # (Auto) 0.02 K/uL (0.00-0.20) 12/25/24 17:55 Immature Gran # (Auto) 0.03 K/uL (0.01-0.20) 12/25/24 17:55 PT 25.5 Seconds (9.0-12.0) H 12/25/24 17:55 INR 2.6 (0.9-1.1) H 12/25/24 17:55 APTT 36 Seconds (21-31) H 12/25/24 17:55 PTT Ratio 1.3 12/25/24 17:55 Sodium 131 mmol/L (136-145) L 12/25/24 17:55 Potassium 4.8 mmol/L (3.5-5.1) 12/25/24 17:55 Chloride 101 mmol/L (98-107) 12/25/24 17:55 Carbon Dioxide 21 mmol/L (21-32) 12/25/24 17:55 Anion Gap 9 (3-11) 12/25/24 17:55 BUN 35 mg/dl (6-23) H 12/25/24 17:55 Creatinine 1.12 mg/dl (0.6-1.2) 12/25/24 17:55 Est Cr Clr Drug Dosing 52.2 ml/min 12/25/24 17:55 eGFR 51.60 12/25/24 17:55 BUN/Creatinine Ratio 31.3 (10-20) H 12/25/24 17:55 Glucose 112 mg/dl (70-99(Fasting)) H 12/25/24 17:55 Lactate 3.0 mmol/L (0.4-2.0) H* 12/25/24 17:55 Calcium 8.7 mg/dl (8.6-10.3) 12/25/24 17:55 Magnesium 1.9 mg/dl (1.7-2.4) 12/25/24 17:55 Total Bilirubin 0.9 mg/dl (0.2-1.0) 12/25/24 17:55 Direct Bilirubin 0.3 mg/dl (0-0.2) H 12/25/24 17:55 AST 11 U/L (13-39) L 12/25/24 17:55 ALT 6 U/L (7-52) L 12/25/24 17:55 Alkaline Phosphatase 95 U/L (34-104) 12/25/24 17:55 Troponin I High Sens 30.3 pg/ml (0-14) H 12/25/24 19:42 C-Reactive Protein 3.88 mg/dl (0-0.5) H 12/25/24 17:55 Total Protein 6.5 gm/dl (6.0-8.3) 12/25/24 17:55 Albumin 3.3 gm/dl (3.4-5.0) L 12/25/24 17:55 Procalcitonin 0.05 ng/ml (0-0.5) 12/25/24 17:55 TSH 6.316 uIu/ml (0.300-4.500) H 12/25/24 17:55 Digoxin 1.1 ng/ml (0.8-2.0) 12/25/24 17:55 Impressions Chest X-Ray 12/25/24 17:01 Clinical History: Sepsis Technique: A frontal view of the chest was obtained Comparison is made to the prior examination dated 11/26/2024 Findings: There is diffuse interstitial prominence, concerning for pulmonary edema superimposed on emphysema. The heart is enlarged. No pneumothorax is seen. There are small bilateral pleural effusions No fracture is noted. No foreign body is seen Impression: Suspected congestive heart failure with cardiomegaly, pulmonary edema, and small bilateral pleural effusions ACT 112: Positive. There are findings on this exam that require communication between the performing entity and the patient following Patient Test Result [place] ([place] 112) guidelines. Electronically signed by Vladimir Dickson 12-25-2024 6:22 PM Hip/Pelvis X-Ray 12/25/24 17:01 Clinical History: Infection 7 views of the pelvis and left hip are submitted for review. Comparison is made to the prior examination dated 11/30/2024 Findings: There is unchanged internal fixation of the left femoral neck and shaft. There is an unchanged displaced greater trochanter fracture fragment. No new fracture is seen. There is severe left hip osteoarthritis. No other osseous abnormality is identified. There is an apparent Gutierrez catheter There is new soft tissue gas lateral to the left hip. There is some lucency of the greater trochanter Impression: 1. Unchanged left femoral neck fracture with internal fixation in place 2. Severe left hip osteoarthritis 3. New soft tissue gas lateral to the left hip, which could be due to a surgical wound, penetrating injury, or infection with gas-forming organism. Clinical correlation is recommended 4. Possible acute osteomyelitis involving the displaced greater trochanter of the left femur ACT 112: Positive. There are findings on this exam that require communication between the performing entity and the patient following Patient Test Result Information Act ([place] ACT 112) guidelines. Electronically signed by Vladimir Dickson 12-25-2024 6:21 PM Diagnostic Findings EKG as per my interpretation :Rate 75, A-fib, LAD, LAFB, LVH, no ischemia
[2024-12-25] MEDS: MEROPENEM 500 MG in SYRINGE 0 ML IV SCH (21:42)
[2024-12-25] MEDS: DAPTOmycin 500 MG in SYRINGE 0 ML IV SCH (21:42)
[2024-12-25] MEDS: ALBUMIN 25% 25 GM/100 ML VIAL IV ONE (22:18)
[2024-12-26 00:57] LABS: Appearance Urine Cloudy (Clear); Bacteria Urine Automated None Seen (None Seen); Epithelial Cell Urine Auto 0-2 /hpf (0-2); Glucose Urine UA Negative (Negative); RBC Urine Automated >20 /hpf (0-2); WBC Urine Automated 21-50 /hpf (0-5)
[2024-12-26] MEDS: ALBUMIN 25% 25 GM/100 ML VIAL IV ONE (01:49)
[2024-12-26 06:35] LABS: Hematocrit (blood only) 26.5 % (37.0-47.0); Hemoglobin 8.8 g/dl (12.0-16.0); Immature Granulocytes # (auto) 0.03 K/uL (0.01-0.20); Immature Granulocytes % (auto) 0.6 %; Mean Corpuscular Hemoglobin 31.5 pg (25.0-34.0); Mean Corpuscular Volume 95.0 fL (80.0-100.0); Platelet Count 31 K/uL (130-400); RDW Standard Deviation 61.1 fL (36.4-46.3); Red Blood Count 2.79 M/uL (4.20-5.40); White Blood Count 4.75 K/ul (4.8-10.8)
[2024-12-26] MEDS: ALBUMIN 25% 12.5 GM/50 ML VIAL IV ONE (06:46)
[2024-12-26 06:57] LABS: Anion Gap 9.0 (3-11); Blood Urea Nitrogen 33.0 mg/dl (6-23); Calcium 8.4 mg/dl (8.6-10.3); Carbon Dioxide 19.0 mmol/L (21-32); Chloride 105.0 mmol/L (98-107); Creatine Kinase 14.0 U/L (26-192); Creatinine Clr Calc Pharmacy 67.0 ml/min; Glucose 93.0 mg/dl (70-99(Fasting)); Potassium 4.3 mmol/L (3.5-5.1); Sodium 133.0 mmol/L (136-145)
[2024-12-26 07:17] LABS: INR 2.7 (0.9-1.1); Prothrombin Time 26.4 Seconds (9.0-12.0)
--- NOTE | 2024-12-26 08:38 | Electrocardiogram Report ---
Test Reason : Blood Pressure : */* mmHG Vent. Rate : 77 BPM Atrial Rate : * BPM P-R Int : * ms QRS Dur : 112 ms QT Int : 400 ms P-R-T Axes : * -41 27 degrees QTcB Int : 452 ms Atrial fibrillation Left axis deviation Minimal voltage criteria for LVH, may be normal variant Anteroseptal infarct (cited on or before 06-Nov-2024) Abnormal ECG When compared with ECG of 26-Nov-2024 04:07, Nonspecific T wave abnormality, worse in Inferior leads T wave inversion now evident in Anterior leads Confirmed by John Tellez ([id number]) on 12/26/2024 8:38:22 AM Referred By: REFERRED SELF Confirmed By: John Tellez
[2024-12-26] MEDS: MIDODRINE HCL 2.5 MG TAB PO SCH (08:39)
[2024-12-26] MEDS: MAGNESIUM CHLORIDE W/CALCIUM 64MG DELAYED REL TAB PO SCH (08:39)
[2024-12-26] MEDS: DOCUSATE SODIUM 100 MG CAP PO SCH (08:40)
[2024-12-26] MEDS: METOPROLOL SUCC 25MG EXT REL TAB PO SCH (08:40)
[2024-12-26] MEDS: POLYETHYLENE (MIRALAX) 17 GM PACK PO SCH (08:40)
[2024-12-26] MEDS: SENNA 8.6 MG TAB PO SCH (08:40)
--- NOTE | 2024-12-26 09:02 | Infectious Disease Consult ---
Date of Consultation December 26, 2024 Assessment & Plan (1) Dehiscence of operative wound: (2) Osteomyelitis: (3) Complication, postoperative infection: Plan Problems: #L hip fracture s/p ORIF (11/07/24) c/b postop hematoma/infection s/p I&D 11/23 and 12/02 #Concern for L hip osteomyelitis #Thrombocytopenia Micro: 12/26 UCx: pending 12/25 L hip wound cx: pending. GS--no org 12/25 BCx x2: pending 12/02 L hip proximal OR cx: Pseudomonas aeruginosa (I cipro. S cefepime, ceftaz, levo, ana maria, pip/tazo) 12/02 L hip distal OR cx: Enterococcus faecalis (S amp, vanc), Pseudomonas aeruginosa (I pip/tazo, otherwise S) 11/23 L hip OR cx: E coli (ortega-S), Kleb oxytoca (R amp, cefaz. 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 Per surgeon, there was no concern for joint involvement, but the hematoma was near the site of hardware entrance, so there was a preference for a longer course of antibiotics. OR culture grew E coli, Kleb oxytoca, Pseudomonas aeruginosa, Porphyromonas somerae, and moderate skin sarah. Due to increased drainage from the wound, she underwent a repeat I&D on 12/02 with wound vac application, with OR culture growing E faecalis and Pseudomonas aeruginosa. She was treated with daptomycin, cefepime, and metronidazole while inpatient, then transitioned to levofloxacin and linezolid on 12/10 through 12/23, to complete 3 weeks of antibiotics from her last I&D on 12/02. Pt reports she followed up with ID at [facility] last week, where her wound vac was removed and there was some concern about the surrounding tissue. Pt denies fevers or chills, and is unsure how her wound has been looking since. She was discharged from rehab to personal care facility the day prior to presentation, where they had concerns about her L hip wound and pt was directed to the ER. On presentation, pt was afebrile, VSS. Labs showed WBC 7.4, Hb 10.9, plt 43 (154 on 12/09), lactate 3. ESR 6 (down from 34 on 11/26), CRP 3.88 (down from 9.63 on 11/26). CXR with suspected CHF with cardiomegaly, pulmonary edema, and small bilateral pleural effusions. L hip XR with unchanged L femoral neck fracture with internal fixation in place, new soft tissue gas lateral to L hip which could be due to a surgical wound, or infection with gas-forming organism, and possible acute osteomyelitis involving displaced greater trochanter of L femur. Difficulty visualizing wound on video exam, but has a large open wound over the L hip with packing in place, serous drainage. Recommendations: - Recommend MRI with and without contrast for further evaluation for L hip osteomyelitis - Follow-up L hip wound cx - Can continue meropenem 500 mg IV q6h and daptomycin 600 mg IV q24h (~8 mg/kg by ABW) pending above culture. CK 14 on 12/26 - If pt is taken to the OR, please send tissue for aerobic/anaerobic, fungal, AFB cultures - Trend platelets--consider thrombocytopenia related to recent course of linezolid Please note that ID does not round or write notes over the weekend. If questions or concerns arise, please contact the Infectious Disease Call Center and ask to speak with the covering ID physician. Consultation Information Consultation was provided via telemedicine using two-way real-time interactive telecommunication between the patient and the telemedicine provider. For the duration of the visit, the provider was performing the assessment from a different facility than the patient. This includesuse of bluetooth stethoscope forauscultationperformed by the telepresenter that the telemedicine provider can hear if described in the physical exam. Museum Specialist contact information: Please call [facility] Call Center . 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 Per surgeon, there was no concern for joint involvement, but the hematoma was near the site of hardware entrance, so there was a preference for a longer course of antibiotics. OR culture grew E coli, Kleb oxytoca, Pseudomonas aeruginosa, Porphyromonas somerae, and moderate skin sarah. Due to increased drainage from the wound, she underwent a repeat I&D on 12/02 with wound vac application, with OR culture growing E faecalis and Pseudomonas aeruginosa. She was treated with daptomycin, cefepime, and metronidazole while inpatient, then transitioned to levofloxacin and linezolid on 12/10 through 12/23, to complete 3 weeks of antibiotics from her last I&D on 12/02. Pt reports she followed up with ID at [facility] last week, where her wound vac was removed and there was some concern about the surrounding tissue. Pt denies fevers or chills, and is unsure how her wound has been looking since. She was discharged from rehab to personal care facility the day prior to presentation, where they had concerns about her L hip wound and pt was directed to the ER. On presentation, pt was afebrile, VSS. Labs showed WBC 7.4, Hb 10.9, plt 43 (154 on 12/09), lactate 3. ESR 6 (down from 34 on 11/26), CRP 3.88 (down from 9.63 on 11/26). CXR with suspected CHF with cardiomegaly, pulmonary edema, and small bilateral pleural effusions. L hip XR with unchanged L femoral neck fracture with internal fixation in place, new soft tissue gas lateral to L hip which could be due to a surgical wound, or infection with gas-forming organism, and possible acute osteomyelitis involving displaced greater trochanter of L femur. Allergies Allergy/AdvReac Type Severity Reaction Status Date / Time Penicillins Allergy Itching Verified 11/26/24 15:13 Home Medications Medication Instructions Recorded Confirmed Type bisacodyl 10 mg rectal suppository 10 mg SD DAILY PRN constipation 30 12/09/24 12/25/24 Rx days #30 ea cholecalciferol (vitamin D3) 125 125 mcg PO QAM 30 days #30 tabs 12/09/24 12/25/24 Rx mcg (5,000 unit) tablet docusate sodium 100 mg capsule 100 mg PO BID 30 days #60 caps 12/09/24 12/25/24 Rx magnesium chloride 64 mg 64 mg PO BID 30 days #60 tabs 12/09/24 12/25/24 Rx (magnesium chloride) tablet,delayed release (Mag 64) metoprolol succinate 25 mg 25 mg PO HS 30 days #30 tabs 12/09/24 12/25/24 Rx tablet,extended release 24 hr metoprolol succinate 50 mg 50 mg PO QAM 30 days #30 tabs 12/09/24 12/25/24 Rx tablet,extended release 24 hr midodrine 2.5 mg tablet 5 mg (2 x 2.5 mg) PO 12/09/24 12/25/24 Rx TID@0800,1200,1700 30 days #30 tabs oxycodone 5 mg tablet 5 mg PO Q4H PRN pain #5 tabs 12/09/24 12/25/24 Rx pantoprazole 40 mg tablet,delayed 40 mg PO QAM 30 days #30 tabs 12/09/24 12/25/24 Rx release polyethylene glycol 3350 17 gram 17 g PO DAILY 30 days #30 ea 12/09/24 12/25/24 Rx oral powder packet (Miralax) potassium chloride 20 mEq 20 meq PO QAM 30 days #30 tabs 12/09/24 12/25/24 Rx tablet,extended release(part/cryst) sennosides 8.6 mg tablet (Senokot) 17.2 mg (2 x 8.6 mg) PO QAM 30 12/09/24 12/25/24 Rx days #60 tabs warfarin 7.5 mg tablet 7.5 mg PO DAILY #30 tabs 12/09/24 12/25/24 Rx Patient History Medical History Encounter for pre-operative examination Right leg DVT Postoperative wound infection Atrial fibrillation with rapid ventricular response (HFpEF) heart failure with preserved ejection fraction Acute on chronic heart failure with preserved ejection fraction (HFpEF) Mitral stenosis Severe mitral insufficiency Ex-smoker Severe pulmonary hypertension Aortic stenosis CHF (congestive heart failure) Social History Smoking Status: Former smoker Smoking End Date: 5 yrs ago; Second Hand Exposure: No; Tobacco Cessation Education Requested by Patient: No Hx Alcohol Use: Yes Alcohol type: wine Hx Substance Use: No Preferred Language: [place] Communication Ability: Effective Cinder Snapper Required: No Beliefs That Will Affect Care: None Current Living Situation: Spouse Other Information That Helps Us Care for You: No Feels Safe at Home: Yes Safety Concerns: Feels Safe At This Time Assistive Devices: Denture - Upper, Denture - Lower, Glasses, Walker and Wheelchair Review of System A complete ROS was performed and is negative except as mentioned in the HPI. Physical Exam Physical Exam: GEN: laying in bed in NAD. RESP: No increased work of breathing SKIN: Large deep wound over L hip with packing in place, uncertain how deep, serous drainage. NEURO: Alert and oriented. Answers all questions appropriately. Speech not slurred. PSYCH: Normal mood, affect appropriate. Results & Data Vital Signs (Past 12 Hours) Vital Signs Temp Pulse Pulse Resp BP BP BP 12/26/24 07:34 36.3 C L 63 20 109/74 12/26/24 04:30 12/26/24 03:02 12/26/24 02:55 37 C 76 14 101/63 12/25/24 23:30 76 12/25/24 23:10 36.5 C 69 20 105/72 12/25/24 22:41 72 16 100/65 12/25/24 21:59 83 12/25/24 21:43 66 18 12/25/24 21:42 75 26 H 12/25/24 21:00 80 24 116/68 Pulse Ox O2 Del Method O2 Flow Rate 12/26/24 07:34 97 Nasal Cannula 1 12/26/24 04:30 97 Nasal Cannula 2 12/26/24 03:02 Nasal Cannula 2 12/26/24 02:55 87 L Room Air 12/25/24 23:30 12/25/24 23:10 92 Room Air 12/25/24 22:41 91 Room Air 12/25/24 21:59 12/25/24 21:43 92 12/25/24 21:42 89 L 12/25/24 21:00 91 Laboratory Results Short CBC 12/25/24 12/26/24 Range/Units 17:55 06:21 WBC 7.40 4.75 L (4.8-10.8) K/ul Hgb 10.9 L 8.8 L (12.0-16.0) g/dl Hct 34.2 L 26.5 L (37.0-47.0) % Plt Count 43 L 31 L (130-400) K/uL BMP 12/25/24 12/26/24 17:55 06:21 Sodium 131 L 133 L Potassium 4.8 4.3 Chloride 101 105 Carbon Dioxide 21 19 L BUN 35 H 33 H Creatinine 1.12 0.86 Glucose 112 H 93 Calcium 8.7 8.4 L Cardiac Enzymes 12/26/24 Range/Units 06:21 Total Creatine Kinase 14 L (26-192) U/L Liver Function 12/25/24 Range/Units 17:55 Total Bilirubin 0.9 (0.2-1.0) mg/dl Direct Bilirubin 0.3 H (0-0.2) mg/dl AST 11 L (13-39) U/L ALT 6 L (7-52) U/L Alkaline Phosphatase 95 (34-104) U/L Albumin 3.3 L (3.4-5.0) gm/dl Urine 12/26/24 Range/Units 00:03 Urine Color Yellow Urine Appearance Cloudy A (Clear) Urine pH 5.5 (4.5-7.5) Ur Specific [place] 1.019 (1.000-1.030) Urine Protein 1+ H (Negative) Urine Glucose (UA) Negative (Negative) Diagnostic Findings Chest X-Ray 12/25/24 17:01 Clinical History: Sepsis Technique: A frontal view of the chest was obtained Comparison is made to the prior examination dated 11/26/2024 Findings: There is diffuse interstitial prominence, concerning for pulmonary edema superimposed on emphysema. The heart is enlarged. No pneumothorax is seen. There are small bilateral pleural effusions No fracture is noted. No foreign body is seen Impression: Suspected congestive heart failure with cardiomegaly, pulmonary edema, and small bilateral pleural effusions ACT 112: Positive. There are findings on this exam that require communication between the performing entity and the patient following Patient Test Result [place] ([place] 112) guidelines. Electronically signed by Vladimir Dickson 12-25-2024 6:22 PM Hip/Pelvis X-Ray 12/25/24 17:01 Clinical History: Infection 7 views of the pelvis and left hip are submitted for review. Comparison is made to the prior examination dated 11/30/2024 Findings: There is unchanged internal fixation of the left femoral neck and shaft. There is an unchanged displaced greater trochanter fracture fragment. No new fracture is seen. There is severe left hip osteoarthritis. No other osseous abnormality is identified. There is an apparent Gutierrez catheter There is new soft tissue gas lateral to the left hip. There is some lucency of the greater trochanter Impression: 1. Unchanged left femoral neck fracture with internal fixation in place 2. Severe left hip osteoarthritis 3. New soft tissue gas lateral to the left hip, which could be due to a surgical wound, penetrating injury, or infection with gas-forming organism. Clinical correlation is recommended 4. Possible acute osteomyelitis involving the displaced greater trochanter of the left femur ACT 112: Positive. There are findings on this exam that require communication between the performing entity and the patient following Patient Test Result Information Act ([place] ACT 112) guidelines. Electronically signed by Vladimir Dickson 12-25-2024 6:21 PM Medications Administered Current Inpatient Medications Acetaminophen (Acetaminophen 500 Mg Tab) 500 mg PO Q6H PRN PRN Reason: fever/pain Stop: 01/24/25 20:10 Docusate Sodium (Docusate Sodium 100 Mg Cap) 100 mg PO BID AFSHAN Stop: 01/25/25 08:59 Last Admin: 12/26/24 08:40 Dose: Not Given Promethazine HCl (Phenergan) 6.25 mg in 50.25 mls @ 201 mls/hr IV Q6H PRN PRN Reason: Nausea And Vomiting Stop: 01/24/25 20:11 Meropenem 500 mg/ Syringe 10 mls @ 2 mls/min IV Q6H AFSHAN; Protocol Stop: 02/05/25 20:59 Last Admin: 12/26/24 09:30 Dose: 2 mls/min Daptomycin 500 mg/ Syringe 10 mls @ 5 mls/min IV Q24H [facility]; Protocol Stop: 02/05/25 20:59 Last Admin: 12/25/24 21:42 Dose: 5 mls/min Sodium Chloride (Nss) 1,000 mls @ 125 mls/hr IV .Q8H [facility] Stop: 12/26/24 19:14 Magnesium Chloride (Magnesium Chloride W/Calcium 64mg Delayed Rel Tab) 64 mg PO BID AFSHAN Stop: 01/25/25 08:59 Last Admin: 12/26/24 08:39 Dose: 64 mg Metoprolol Succinate (Metoprolol Succ 25mg Ext Rel Tab) 25 mg PO BID [facility] Stop: 01/25/25 08:59 Last Admin: 12/26/24 08:40 Dose: 25 mg Midodrine (Midodrine Hcl 2.5 Mg Tab) 5 mg PO TID@0800,1200,1700 [facility] Stop: 01/25/25 07:59 Last Admin: 12/26/24 08:39 Dose: 5 mg Oxycodone HCl (Oxycodone Hcl Ir 5 Mg Tab (Immediate Release)) 5 mg PO Q4H PRN PRN Reason: Pain Stop: 01/08/25 20:10 Last Admin: 12/26/24 09:57 Dose: 5 mg Pantoprazole Sodium (Pantoprazole 40 Mg Tab) 40 mg PO QAM [facility] Stop: 01/25/25 08:59 Last Admin: 12/26/24 08:40 Dose: 40 mg Polyethylene Glycol (Polyethylene (Miralax) 17 Gm Pack) 17 gm PO DAILY [facility] Stop: 01/25/25 08:59 Last Admin: 12/26/24 08:40 Dose: Not Given Sennosides (Senna 8.6 Mg Tab) 17.2 mg PO QAM [facility] Stop: 01/25/25 08:59 Last Admin: 12/26/24 08:40 Dose: Not Given
--- NOTE | 2024-12-26 10:31 | Orthopedic Consultation ---
Date of Consultation December 26, 2024 Assessment & Plan (1) Dehiscence of operative wound: Recommend transfer to tertiary care facility ([facility]) orthopedic trauma service New dressing was applied Concern for osteomyelitis of greater trochanter Pain control with p.o. medication Continue IV antibiotics Continue IV antiemetics Review ID recommendations Patient was denied transfer to [facility] last evening however we would like to try to process this to [facility] this afternoon. Medicine will serve as primary service [place] text was sent to [facility]'s orthopedic trauma on-call provider. I am waiting for reply to see if they will accept the transfer. *Spoke with Dr. Bre Wooten (Ortho) and Dr. Harrison Valdivia (Medicine). Dr. Valdivia accepted patient via transfer [place] [facility]. Wooten will reach out to Dr. Alberto Tamayo (Plastics) for management of patients issues. All images were pushed. Initial OR report faxed to transfer center for Dr. Wooten to review. Transfer form will be signed by Dr. Louis. Patient will be ALS transfer to medicine service. Supervising Physician Co-Signing Physician Notes I saw and examined the patient, reviewed her x-rays, performed the substantive portion of the visit, and agree with above note. Patient has an infected left hip wound with hardware, soft tissue defect, possible osteomyelitis, and multiple medical comorbidities. Needing transfer to tertiary care facility for management of her complex orthopaedic and medical problems. May need plastic surgery to do flap coverage. History of Present Illness Reason for Consultation: Left hip wound Requesting Physician: Joshua Louis MD Attending Physician: Cristian Rodriguez MD History of Present Illness 74 yo F with PMH of HTN, CHF with recent admission 11/06-12/09/24 after a fall for L hip fracture s/p ORIF (11/07/24) with postop anemia and hypotension requiring transfer to the ICU, and CT showing gluteal hematoma complicated by postop wound infection s/p 11/23 evaluation of hematoma and I&D. At that time there was no concern for joint involvement, but the hematoma was near the site of hardware entrance, so there was a preference for a longer course of antibiotics. OR culture grew E coli, Kleb oxytoca, Pseudomonas aeruginosa, Porphyromonas somerae, and moderate skin sarah. Due to increased drainage from the wound, she underwent a repeat I&D on 12/02 with wound vac application, with OR culture growing E faecalis and Pseudomonas aeruginosa. Saw N[facility]un last week, took wound vac off, some concern about surrounding tissue. Patient was at [facility] for rehab. Yesterday she was transferred to [facility] but was there less than 24 hours before they recommended that she come to the hospital.Patient is complaining of weakness. She is also very anxious saying that she "does not want to here." She is very worried that the wound is not healing. Currently she is on IV daptomycin and Meropenem. Patient states she has pain in both of her lower legs. She states that while at rehab she was only able to transition from her bed to the bathroom a few times with maximum assistance. Currently she denies chest pain, shortness of breath, fever, chills or sweats. She does complain of nausea that has been treated with IV antiemetics. Patient was evaluated by infectious disease via telemedicine this morning. Allergies Allergy/AdvReac Type Severity Reaction Status Date / Time Penicillins Allergy Itching Verified 11/26/24 15:13 Home Medications Medication Instructions Recorded Confirmed Type bisacodyl 10 mg rectal suppository 10 mg MN DAILY PRN constipation 30 12/09/24 12/25/24 Rx days #30 ea cholecalciferol (vitamin D3) 125 125 mcg PO QAM 30 days #30 tabs 12/09/24 12/25/24 Rx mcg (5,000 unit) tablet docusate sodium 100 mg capsule 100 mg PO BID 30 days #60 caps 12/09/24 12/25/24 Rx magnesium chloride 64 mg 64 mg PO BID 30 days #60 tabs 12/09/24 12/25/24 Rx (magnesium chloride) tablet,delayed release (Mag 64) metoprolol succinate 25 mg 25 mg PO HS 30 days #30 tabs 12/09/24 12/25/24 Rx tablet,extended release 24 hr metoprolol succinate 50 mg 50 mg PO QAM 30 days #30 tabs 12/09/24 12/25/24 Rx tablet,extended release 24 hr midodrine 2.5 mg tablet 5 mg (2 x 2.5 mg) PO 12/09/24 12/25/24 Rx TID@0800,1200,1700 30 days #30 tabs oxycodone 5 mg tablet 5 mg PO Q4H PRN pain #5 tabs 12/09/24 12/25/24 Rx pantoprazole 40 mg tablet,delayed 40 mg PO QAM 30 days #30 tabs 12/09/24 12/25/24 Rx release polyethylene glycol 3350 17 gram 17 g PO DAILY 30 days #30 ea 12/09/24 12/25/24 Rx oral powder packet (Miralax) potassium chloride 20 mEq 20 meq PO QAM 30 days #30 tabs 12/09/24 12/25/24 Rx tablet,extended release(part/cryst) sennosides 8.6 mg tablet (Senokot) 17.2 mg (2 x 8.6 mg) PO QAM 30 12/09/24 12/25/24 Rx days #60 tabs warfarin 7.5 mg tablet 7.5 mg PO DAILY #30 tabs 12/09/24 12/25/24 Rx Patient History Medical History Encounter for pre-operative examination Right leg DVT Postoperative wound infection Atrial fibrillation with rapid ventricular response (HFpEF) heart failure with preserved ejection fraction Acute on chronic heart failure with preserved ejection fraction (HFpEF) Mitral stenosis Severe mitral insufficiency Ex-smoker Severe pulmonary hypertension Aortic stenosis CHF (congestive heart failure) Social History Smoking Status: Former smoker Smoking End Date: 5 yrs ago; Second Hand Exposure: No; Tobacco Cessation Education Requested by Patient: No Hx Alcohol Use: Yes Alcohol type: wine Hx Substance Use: No Preferred Language: Slovenian Communication Ability: Effective Pharmacy Informatics Manager Required: No Beliefs That Will Affect Care: Spiritual Current Living Situation: Spouse Other Information That Helps Us Care for You: No Feels Safe at Home: Yes Safety Concerns: Feels Safe At This Time Assistive Devices: Denture - Upper, Denture - Lower, Glasses, Walker and Wheelchair Review of Systems 2 Review of Systems: All systems reviewed & are unremarkable except as noted in Subjective Physical Exam 2 Physical Exam: Left hip: Large open wound to the left hip with necrotic tissue and slight granulation. There was a packing consisting of saline soaked Kerlix,. 4 x 4's and ABDs kept in place with paper tape. This was removed. There is no active drainage. The wound did extend down to the periosteal tissue covering the proximal femur. The wound did travel and tunnel into the deep tissue. I did remove the packing. A new dressing consisting of the same material was placed. I soaked Kerlix in Paulette's sterile basin with normal saline and it was placed into the wound. I covered the wound with sterile 4 x 4's (2 tubs) and then covered the wound with sterile ABDs and paper tape. Patient also has note of venous stasis dermatitis affecting both lower extremities that is very tender to palpation just proximal to the ankle joint and appears very ecchymotic if not necrotic in nature. There is also significant excoriation of the superficial epidermis around the dressing. Patient is unable to perform active straight leg raise test. She does not tolerate logroll testing. She is able to actively dorsi and plantarflex her foot and intact light sensation to touch over the pads of all digits. Peripheral pulses are 1+. Results & Data Vital Signs (Past 12 Hours) Vital Signs Temp Pulse Pulse Resp BP BP BP 12/26/24 07:34 36.3 C L 63 20 109/74 12/26/24 04:30 12/26/24 03:02 12/26/24 02:55 37 C 76 14 101/63 12/25/24 23:30 76 12/25/24 23:10 36.5 C 69 20 105/72 12/25/24 22:41 72 16 100/65 Pulse Ox O2 Del Method O2 Flow Rate 12/26/24 07:34 97 Nasal Cannula 1 12/26/24 04:30 97 Nasal Cannula 2 12/26/24 03:02 Nasal Cannula 2 12/26/24 02:55 87 L Room Air 12/25/24 23:30 12/25/24 23:10 92 Room Air 12/25/24 22:41 91 Room Air Laboratory Results Laboratory Results WBC 4.75 K/ul (4.8-10.8) L 12/26/24 06:21 RBC 2.79 M/uL (4.20-5.40) L 12/26/24 06:21 Hgb 8.8 g/dl (12.0-16.0) L 12/26/24 06:21 Hct 26.5 % (37.0-47.0) L 12/26/24 06:21 MCV 95.0 fL (80.0-100.0) 12/26/24 06:21 MCH 31.5 pg (25.0-34.0) 12/26/24 06:21 MCHC 33.2 g/dL (32.0-36.0) 12/26/24 06:21 RDW Std Deviation 61.1 fL (36.4-46.3) H 12/26/24 06:21 RDW Coeff of Gifty 17.2 % (11.5-14.5) H 12/26/24 06:21 Plt Count 31 K/uL (130-400) L 12/26/24 06:21 MPV 11.2 fL (9.4-12.4) 12/26/24 06:21 Immature Gran % (Auto) 0.6 % 12/26/24 06:21 Neut % (Auto) 81.6 % 12/26/24 06:21 Lymph % (Auto) 14.1 % 12/26/24 06:21 [place] % (Auto) 2.1 % 12/26/24 06:21 Eos % (Auto) 0.8 % 12/26/24 06:21 Baso % (Auto) 0.8 % 12/26/24 06:21 Neut # (Auto) 3.87 K/uL (1.40-6.50) 12/26/24 06:21 Lymph # (Auto) 0.67 K/uL (1.20-3.40) L 12/26/24 06:21 [place] # (Auto) 0.10 K/uL (0.11-0.59) L 12/26/24 06:21 Eos # (Auto) 0.04 K/uL (0.00-0.50) 12/26/24 06:21 Baso # (Auto) 0.04 K/uL (0.00-0.20) 12/26/24 06:21 Immature Gran # (Auto) 0.03 K/uL (0.01-0.20) 12/26/24 06:21 ESR 6 mm/hr (0-30) 12/26/24 06:21 PT 26.4 Seconds (9.0-12.0) H 12/26/24 06:21 INR 2.7 (0.9-1.1) H 07/11/25 06:21 APTT 36 Seconds (21-31) H 12/25/24 17:55 PTT Ratio 1.3 12/25/24 17:55 Sodium 133 mmol/L (136-145) L 12/26/24 06:21 Potassium 4.3 mmol/L (3.5-5.1) 12/26/24 06:21 Chloride 105 mmol/L (98-107) 12/26/24 06:21 Carbon Dioxide 19 mmol/L (21-32) L 12/26/24 06:21 Anion Gap 9 (3-11) 12/26/24 06:21 BUN 33 mg/dl (6-23) H 12/26/24 06:21 Creatinine 0.86 mg/dl (0.6-1.2) 12/26/24 06:21 Est Cr Clr Drug Dosing 67.0 ml/min 12/26/24 06:21 eGFR 70.85 12/26/24 06:21 BUN/Creatinine Ratio 38.4 (10-20) H 12/26/24 06:21 Glucose 93 mg/dl (70-99(Fasting)) 12/26/24 06:21 Lactate 2.4 mmol/L (0.4-2.0) H* 12/26/24 10:28 Calcium 8.4 mg/dl (8.6-10.3) L 12/26/24 06:21 Magnesium 1.9 mg/dl (1.7-2.4) 12/25/24 17:55 Total Bilirubin 0.9 mg/dl (0.2-1.0) 12/25/24 17:55 Direct Bilirubin 0.3 mg/dl (0-0.2) H 12/25/24 17:55 AST 11 U/L (13-39) L 12/25/24 17:55 ALT 6 U/L (7-52) L 12/25/24 17:55 Alkaline Phosphatase 95 U/L (34-104) 12/25/24 17:55 Total Creatine Kinase 14 U/L (26-192) L 12/26/24 06:21 Troponin I High Sens 30.3 pg/ml (0-14) H 12/25/24 19:42 C-Reactive Protein 3.88 mg/dl (0-0.5) H 12/25/24 17:55 Total Protein 6.5 gm/dl (6.0-8.3) 12/25/24 17:55 Albumin 3.3 gm/dl (3.4-5.0) L 12/25/24 17:55 Procalcitonin 0.05 ng/ml (0-0.5) 12/25/24 17:55 TSH 6.316 uIu/ml (0.300-4.500) H 12/25/24 17:55 Free T4 0.93 ng/dl (0.61-1.60) 12/25/24 17:55 Urine Color Yellow 12/26/24 00:03 Urine Appearance Cloudy (Clear) A 12/26/24 00:03 Urine pH 5.5 (4.5-7.5) 12/26/24 00:03 Ur Specific Hazen 1.019 (1.000-1.030) 12/26/24 00:03 Urine Protein 1+ (Negative) H 12/26/24 00:03 Urine Glucose (UA) Negative (Negative) 12/26/24 00:03 Urine Ketones Trace (Negative) H 12/26/24 00:03 Urine Blood 2+ (Negative) H 12/26/24 00:03 Urine Nitrite Negative (Negative) 12/26/24 00:03 Urine Bilirubin Negative (Negative) 12/26/24 00:03 Urine Urobilinogen Negative (Negative) 12/26/24 00:03 Ur Leukocyte Esterase 1+ (Negative) H 12/26/24 00:03 Urine WBC (Auto) 21-50 /hpf (0-5) H 12/26/24 00:03 Urine RBC (Auto) >20 /hpf (0-2) H 12/26/24 00:03 U Hyaline Cast (Auto) 6-10 /lpf (0-2) H 12/26/24 00:03 U Epithel Cells (Auto) 0-2 /hpf (0-2) 12/26/24 00:03 Urine Bacteria (Auto) None Seen (None Seen) 12/26/24 00:03 Calcium Oxalate Crystal Present (None Prsent) A 12/26/24 00:03 Hyaline Casts Present /lpf (None Presnt) A 12/26/24 00:03 Urine Mucus Present (None Prsent) A 12/26/24 00:03 Urine Comment 12/26/24 00:03 Nasal Screen MRSA (PCR) Negative (Negative) 12/25/24 Unknown Digoxin 1.1 ng/ml (0.8-2.0) 12/25/24 17:55 Impressions Chest X-Ray 12/25/24 17:01 Clinical History: Sepsis Technique: A frontal view of the chest was obtained Comparison is made to the prior examination dated 11/26/2024 Findings: There is diffuse interstitial prominence, concerning for pulmonary edema superimposed on emphysema. The heart is enlarged. No pneumothorax is seen. There are small bilateral pleural effusions No fracture is noted. No foreign body is seen Impression: Suspected congestive heart failure with cardiomegaly, pulmonary edema, and small bilateral pleural effusions ACT 112: Positive. There are findings on this exam that require communication between the performing entity and the patient following Patient Test Result [place] ([place] 112) guidelines. Electronically signed by Vladimir Dickson 12-25-2024 6:22 PM Hip/Pelvis X-Ray 12/25/24 17:01 Clinical History: Infection 7 views of the pelvis and left hip are submitted for review. Comparison is made to the prior examination dated 11/30/2024 Findings: There is unchanged internal fixation of the left femoral neck and shaft. There is an unchanged displaced greater trochanter fracture fragment. No new fracture is seen. There is severe left hip osteoarthritis. No other osseous abnormality is identified. There is an apparent Gutierrez catheter There is new soft tissue gas lateral to the left hip. There is some lucency of the greater trochanter Impression: 1. Unchanged left femoral neck fracture with internal fixation in place 2. Severe left hip osteoarthritis 3. New soft tissue gas lateral to the left hip, which could be due to a surgical wound, penetrating injury, or infection with gas-forming organism. Clinical correlation is recommended 4. Possible acute osteomyelitis involving the displaced greater trochanter of the left femur ACT 112: Positive. There are findings on this exam that require communication between the performing entity and the patient following Patient Test Result Information Act ([place] ACT 112) guidelines. Electronically signed by Vladimir Dickson 12-25-2024 6:21 PM Diagnostic Findings
--- NOTE | 2024-12-26 11:13 | Hospitalist Progress Note ---
Date of Service December 26, 2024 Assessment & Plan (1) Dehiscence of operative wound: Plan Patient is a 74-year-old female with past medical history of hypertension, HFpEF, atrial fibrillation was recently admitted to the hospital from 11/06 to 12/09 with closed hip fracture. She underwent open reduction and internal fixation by Dr. Fitch on 11/07/2024. Postoperative period Was complicated by wound infection for which she underwent I&D on 11/23/2024 and on 12/02/2024. She was treated with IV antibiotic and switched over to p.o. at the time of the discharge. She finished her antibiotic course on 12/23. Patient was discharged to rehab. She is she was discharged to personal senior care from the rehab. Patient was sent to the hospital due to concern for wound infection/management. Postoperative wound infection Possible Greater trochanter for left femur Osteomyelitis History of close hip fracture status post surgery on 11/07/2024, status post I&D of the wound on 11/23/2024 and 12/02/2024. Finished antibiotic on 12/23 CRP down trended from 5.49(on 12/07/2024) to 3.88(12/26/2024). ESR down trended from 23 (on 12/07/2024) to 6(12/26/2024). No leukocytosis present. No fever/chills Hip x-ray on admission "unchanged femoral neck fracture with internal fixation, severe left hip osteoarthritis. New soft tissue gas lateral to left hip. Possible acute osteomyelitis involving displaced greater trochanter of left femur" Orthopedic surgery, infectious disease and wound care have been consulted. Patient has been started on meropenem and daptomycin. Discussed with orthopedic PA; they are planning for transfer to [facility] and are contacting the transfer center. Will provide IV fluids with NS at 125 cc/h PT OT eval; patient will likely benefit from intermediate in personal senior care for wound care. Persistent atrial fibrillation Valvular heart disease A-fib diagnosed last admission; was treated with IV amiodarone initially. Patient currently on metoprolol succinate 50 mg in a.m. and 25 mg at night; continue. Echo from 11/11 test EF of 65 to 70%; mild mitral stenosis, mild to moderate valvular stenosis History of right lower extremity DVT; diagnosed last admission. On Coumadin continue. Thrombocytopenia- Platelet count 43K on admission; possible that it might be related with recent use of linezolid. Will obtain peripheral blood smear; monitor daily. DVT prophylaxis Coumadin Full code Time spent evaluating patient, direct bedside care, chart review, placing orders, interpretation of diagnostic studies, discussion with consultants, patient, and family members, as well as other required patient management activities is 50 minutes Please note the above document was generated using voice recognition software. It may contain grammatical, syntax or spelling errors. Any formal questions or concerns about the content, text or information contained within the body of this dictation should be directly addressed to the provider for clarification Admission and Anticipated Discharge Date Admission Date: December 25, 2024 Subjective Patient seen and examined at bedside. She is comfortable; not in distress. She denies any pain or discomfort. Review of Systems Review of Systems: All systems reviewed & are unremarkable except as noted in Subjective Physical Exam Physical Exam: GENERAL: Comfortable, pleasant,, no respiratory distress SKIN: Pallor, warm HEENT: Pale palpebral conjunctivae, no ptosis, dry buccal mucosa NECK : Supple, no tenderness CHEST : CTA, no tenderness HEART : Irregular, systolic murmur ABDOMEN: Some distention, nontender EXTREMITIES : Open wound on left hip; scant discharge; no purulence noted. NEUROLOGIC : Coherent, no facial asymmetry, no other gross focality Results & Data Results & Data Vital Signs (Past 12 Hours) Vital Signs Temp Pulse Pulse Resp BP BP Pulse Ox 12/26/24 07:34 36.3 C L 63 20 109/74 97 12/26/24 04:30 97 12/26/24 03:02 12/26/24 02:55 37 C 76 14 101/63 87 L 12/25/24 23:30 76 12/25/24 23:10 36.5 C 69 20 105/72 92 O2 Del Method O2 Flow Rate 12/26/24 07:34 Nasal Cannula 1 12/26/24 04:30 Nasal Cannula 2 12/26/24 03:02 Nasal Cannula 2 12/26/24 02:55 Room Air 12/25/24 23:30 12/25/24 23:10 Room Air
[2024-12-26] MEDS: SODIUM CHLORIDE 0.9% 1,000 ML IV SCH (11:31)
--- NOTE | 2024-12-26 13:27 | Discharge Summary ---
Date of Service December 26, 2024 Admission HPI Per Admitting Provider History obtained from patient, family, and records. Medical history significant for chronic diastolic heart failure (EF 65 to 70%, TTE 2024), A-fib/recent RLE DVT on Coumadin, valvular heart disease (severe MR,mild /MS), hypotension on midodrine, mood disorder, past tobacco abuse. Recent [facility] confinement last November 06 to December 09, 2024 for traumatic left hip fracture secondary to mechanical fall following recent relocation to [place] from [place]. Patient presented with new onset A-fib at time of admission. Complicated protracted hospital stay. Patient underwent ORIF of left hip (11/07). 2 I&D/washout procedures done during admission due to postop wound infection (11/23, 12/02) Wound cultures grew E. coli, Klebsiella, Enterococcus faecalis, Pseudomonas aeruginosa, Soto ornitholytica, Porphyromonas. Patient discharged to rehab facility on additional 2-week course of levofloxacin and linezolid (last dose 12/17/2024) as per [facility] ID recommendations. Confinement also complicated with hypotension requiring ICU stay and discharged on midodrine Rx. RLE DVT noted on venous ultrasound. Patient discharged on Coumadin Rx for A-fib and blood clot to rehab facility. Wound VAC removed following outpatient wound visit a few days ago as per patient. Patient without unusual hip pain complaints. Unaware of wound status because she is unable to look at it. No fever, no chills. Denies chest pain, SOB. Patient discharged to [facility] personal care facility from [facility] rehab yesterday. Personal care facility had concerns about left hip wound. Patient directed to ER following recommendations of outpatient Orthopedics provider. 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 Per Admitting Provider GENERAL: Comfortable, pleasant, obese, no respiratory distress SKIN: Pallor, warm HEENT: Pale palpebral conjunctivae, no ptosis, dry buccal mucosa NECK : Supple, no tenderness CHEST : CTA, no tenderness HEART : Irregular, systolic murmur ABDOMEN: Some distention, nontender EXTREMITIES : Bilateral LE venous stasis without tenderness, open wound left hip with erythematous margins scant drainage, palpable pulses, no other conspicuous deformities noted NEUROLOGIC : Coherent, no facial asymmetry, no other gross focality Principal Diagnosis Postoperative wound infection Possible Greater trochanter for left femur Osteomyelitis Discharge Exam GENERAL: Comfortable, pleasant,, no respiratory distress SKIN: Pallor, warm HEENT: Pale palpebral conjunctivae, no ptosis, dry buccal mucosa NECK : Supple, no tenderness CHEST : CTA, no tenderness HEART : Irregular, systolic murmur ABDOMEN: Some distention, nontender EXTREMITIES : Open wound on left hip; scant discharge; no purulence noted. NEUROLOGIC : Coherent, no facial asymmetry, no other gross focality Discharge Data Allergies Allergy/AdvReac Type Severity Reaction Status Date / Time Penicillins Allergy Itching Verified 11/26/24 15:13 Consultations 12/25/24 19:44 ED Decision to Admit Stat 12/25/24 22:35 Consult Orthopedic Surgery Routine 12/25/24 23:12 Consult Infectious Diseases Routine 12/26/24 13:03 Burn CD for patient Stat Hospital Course (1) Dehiscence of operative wound: Plan Patient is a 74-year-old female with past medical history of hypertension, HFpEF, atrial fibrillation was recently admitted to the hospital from 11/06 to 12/09 with closed hip fracture. She underwent open reduction and internal fixation by Dr. Fitch on 11/07/2024. Postoperative period Was complicated by wound infection for which she underwent I&D on 11/23/2024 and on 12/02/2024. She was treated with IV antibiotic and switched over to p.o. at the time of the discharge. She finished her antibiotic course on 12/23. Patient was discharged to rehab. She is she was discharged to personal jail from the rehab. Patient was sent to the hospital due to concern for wound infection/management. Postoperative wound infection Possible Greater trochanter for left femur Osteomyelitis History of close hip fracture status post surgery on 11/07/2024, status post I&D of the wound on 11/23/2024 and 12/02/2024. Finished antibiotic on 12/23 CRP down trended from 5.49(on 12/07/2024) to 3.88(12/26/2024). ESR down trended from 23 (on 12/07/2024) to 6(12/26/2024). No leukocytosis present. No fever/chills Hip x-ray on admission "unchanged femoral neck fracture with internal fixation, severe left hip osteoarthritis. New soft tissue gas lateral to left hip. Possible acute osteomyelitis involving displaced greater trochanter of left femur" Orthopedic surgery, infectious disease and wound care have been consulted. Patient was started on meropenem and daptomycin. Patient is also very discussed the care with [facility] for transfer given patient will need for possible plastic surgery, wound care and orthopedic surgery. Patient was accepted for transfer. Persistent atrial fibrillation Valvular heart disease A-fib diagnosed last admission; was treated with IV amiodarone initially. Patient currently on metoprolol succinate 50 mg in a.m. and 25 mg at night; continue. Echo from 11/11 test EF of 65 to 70%; mild mitral stenosis, mild to moderate valvular stenosis History of right lower extremity DVT; diagnosed last admission. On Coumadin continue. Thrombocytopenia- Platelet count 43K on admission; possible that it might be related with recent use of linezolid. Will obtain peripheral blood smear; monitor daily. DVT prophylaxis Coumadin Full code Please note the above document was generated using voice recognition software. It may contain grammatical, syntax or spelling errors. Any formal questions or concerns about the content, text or information contained within the body of this dictation should be directly addressed to the provider for clarification Total Time Total Time Spent Total Time Spent (In Minutes): 45 Total Time Includes: Examination of the Patient, Discharge Planning, Medication Reconciliation, Communication With Other Providers and Other Discharge Plan Discharge Items Patient Disposition: Transfer Acute Care Hospital Reason For Visit: L HIP OSTEOMYELITIS, TROP ELEV Discharge Diagnosis: Postoperative wound infection Possible Greater trochanter for left femur Osteomyelitis Condition on Discharge: Fair Activity: Resume your previous activity Non-emergency contact: Primary Care Provider Call non-emergency contact if: you have any medication questions and your symptoms worsen Follow-up/Referrals: PCP,NO [Primary Care Provider] - Diet: Regular Addtl Attending Provider Instructions: Date of Service: December 26, 2024 Current Inpatient Medications Acetaminophen (Acetaminophen 500 Mg Tab) 500 mg PO Q6H PRN PRN Reason: fever/pain Stop: 01/24/25 20:10 Docusate Sodium (Docusate Sodium 100 Mg Cap) 100 mg PO BID AFSHAN Stop: 01/25/25 08:59 Last Admin: 12/26/24 08:40 Dose: Not Given Promethazine HCl (Phenergan) 6.25 mg in 50.25 mls @ 201 mls/hr IV Q6H PRN PRN Reason: Nausea And Vomiting Stop: 01/24/25 20:11 Meropenem 500 mg/ Syringe 10 mls @ 2 mls/min IV Q6H [facility]; Protocol Stop: 02/05/25 20:59 Last Admin: 12/26/24 09:30 Dose: 2 mls/min Sodium Chloride (Nss) 1,000 mls @ 125 mls/hr IV .Q8H [facility] Stop: 12/26/24 19:14 Last Admin: 12/26/24 11:31 Dose: 125 mls/hr Daptomycin 600 mg/ Syringe 12 mls @ 5 mls/min IV Q24H [facility]; Protocol Stop: 02/05/25 14:59 Magnesium Chloride (Magnesium Chloride W/Calcium 64mg Delayed Rel Tab) 64 mg PO BID [facility] Stop: 01/25/25 08:59 Last Admin: 12/26/24 08:39 Dose: 64 mg Metoprolol Succinate (Metoprolol Succ 25mg Ext Rel Tab) 25 mg PO BID [facility] Stop: 01/25/25 08:59 Last Admin: 12/26/24 08:40 Dose: 25 mg Midodrine (Midodrine Hcl 2.5 Mg Tab) 5 mg PO TID@0800,1200,1700 [facility] Stop: 01/25/25 07:59 Last Admin: 12/26/24 11:36 Dose: 5 mg Oxycodone HCl (Oxycodone Hcl Ir 5 Mg Tab (Immediate Release)) 5 mg PO Q4H PRN PRN Reason: Pain Stop: 01/08/25 20:10 Last Admin: 12/26/24 09:57 Dose: 5 mg Pantoprazole Sodium (Pantoprazole 40 Mg Tab) 40 mg PO QAM [facility] Stop: 01/25/25 08:59 Last Admin: 12/26/24 08:40 Dose: 40 mg Polyethylene Glycol (Polyethylene (Miralax) 17 Gm Pack) 17 gm PO DAILY [facility] Stop: 01/25/25 08:59 Last Admin: 12/26/24 08:40 Dose: Not Given Sennosides (Senna 8.6 Mg Tab) 17.2 mg PO QAM [facility] Stop: 01/25/25 08:59 Last Admin: 12/26/24 08:40 Dose: Not Given Pending Studies at Discharge: No Stand-Alone Forms: My [facility] Skilled Items Patient informed of condition?: Yes DNR: No Discharge Level of Care: Skilled Communicable Disease: No Discharge Prognosis: Stable Lines: Peripheral IV Urinary Catheter: No Medications and DC Order Prescriptions: Continued sennosides [Senokot] 8.6 mg Tablet 17.2 mg PO QAM 30 Days Qty: 60 0RF polyethylene glycol 3350 [Miralax] 17 gram Powder In Packet 17 g PO DAILY 30 Days Qty: 30 0RF metoprolol succinate 50 mg Tablet Extended Release 24 Hr 50 mg PO QAM 30 Days Qty: 30 0RF potassium chloride 20 mEq Tablet,Er Particles/Crystals 20 meq PO QAM 30 Days Qty: 30 0RF bisacodyl 10 mg Suppository 10 mg [place] DAILY PRN (Reason: constipation) 30 Days Qty: 30 0RF pantoprazole 40 mg Tablet,Delayed Release (Dr/Ec) 40 mg PO QAM 30 Days Qty: 30 0RF docusate sodium 100 mg Capsule 100 mg PO BID 30 Days Qty: 60 0RF midodrine 2.5 mg Tablet 5 mg PO TID@0800,1200,1700 30 Days Qty: 30 0RF metoprolol succinate 25 mg Tablet Extended Release 24 Hr 25 mg PO HS 30 Days Qty: 30 0RF oxycodone 5 mg Tablet 5 mg PO Q4H PRN (Reason: pain) Qty: 5 0RF magnesium chloride [Mag 64] 64 mg Tablet,Delayed Release (Dr/Ec) 64 mg PO BID 30 Days Qty: 60 0RF cholecalciferol (vitamin D3) 125 mcg (5,000 unit) Tablet 125 mcg PO QAM 30 Days Qty: 30 0RF warfarin 7.5 mg tablet 7.5 mg PO DAILY Qty: 30 0RF Discharge Orders: Discharge Order (Routine); Ordered 12/26/24 Ordered By: Cristian Rodriguez Admission Data Admit Date/Time: 12/25/24 21:22 Attending Provider: Cristian Rodriguez Admit Provider: Nabeel Davis Primary Care Provider: PCP,NO Other Providers: [facility]; Nabeel Davis; Edie Mallory; Silver Fitch; Yusef Jones.; Brent Beard; Ania Meyer; Carl Dueñas; Too Watkins; Joshua Fuentes; Joshua Louis; Rosalba Tesfaye; Alexandre Ko; Kamla Beard; Chi Thompson; Cristina Teresa; Rob Boswell; Chris Kang
[2024-12-26] MEDS: DAPTOmycin 600 MG in SYRINGE 0 ML IV SCH (15:54)
[2024-12-27 08:55] LABS: Anion Gap 7.0 (3-11); Calcium 8.1 mg/dl (8.6-10.3); Carbon Dioxide 21.0 mmol/L (21-32); Chloride 105.0 mmol/L (98-107); Potassium 4.2 mmol/L (3.5-5.1); Sodium 133.0 mmol/L (136-145)
[2024-12-27 09:00] LABS: Blood Urea Nitrogen 29.0 mg/dl (6-23); Creatinine Clr Calc Pharmacy 74.2 ml/min; Glucose 113.0 mg/dl (70-99(Fasting))
[2024-12-27 09:23] LABS: Hematocrit (blood only) 29.3 % (37.0-47.0); Hemoglobin 9.5 g/dl (12.0-16.0); Mean Corpuscular Hemoglobin 30.7 pg (25.0-34.0); Mean Corpuscular Volume 94.8 fL (80.0-100.0); Platelet Count 28 K/uL (130-400); RDW Standard Deviation 61.2 fL (36.4-46.3); Red Blood Count 3.09 M/uL (4.20-5.40); White Blood Count 5.40 K/ul (4.8-10.8)
[2024-12-27 09:26] LABS: Immature Granulocytes # (auto) 0.04 K/uL (0.01-0.20); Immature Granulocytes % (auto) 0.7 %
[2024-12-27 10:47] VITALS: PULSE 77
--- NOTE | 2024-12-27 10:47 | Discharge Summary ---
Date of Service December 27, 2024 Admission HPI Per Admitting Provider History obtained from patient, family, and records. Medical history significant for chronic diastolic heart failure (EF 65 to 70%, TTE 2024), A-fib/recent RLE DVT on Coumadin, valvular heart disease (severe MR,mild /MS), hypotension on midodrine, mood disorder, past tobacco abuse. Recent [facility] confinement last November 06 to December 09, 2024 for traumatic left hip fracture secondary to mechanical fall following recent relocation to [place] from [place]. Patient presented with new onset A-fib at time of admission. Complicated protracted hospital stay. Patient underwent ORIF of left hip (11/07). 2 I&D/washout procedures done during admission due to postop wound infection (11/23, 12/02) Wound cultures grew E. coli, Klebsiella, Enterococcus faecalis, Pseudomonas aeruginosa, Soto ornitholytica, Porphyromonas. Patient discharged to rehab facility on additional 2-week course of levofloxacin and linezolid (last dose 12/17/2024) as per [facility] ID recommendations. Confinement also complicated with hypotension requiring ICU stay and discharged on midodrine Rx. RLE DVT noted on venous ultrasound. Patient discharged on Coumadin Rx for A-fib and blood clot to rehab facility. Wound VAC removed following outpatient wound visit a few days ago as per patient. Patient without unusual hip pain complaints. Unaware of wound status because she is unable to look at it. No fever, no chills. Denies chest pain, SOB. Patient discharged to [facility] personal care facility from [facility] rehab yesterday. Personal care facility had concerns about left hip wound. Patient directed to ER following recommendations of outpatient Orthopedics provider. 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 Per Admitting Provider GENERAL: Comfortable, pleasant, obese, no respiratory distress SKIN: Pallor, warm HEENT: Pale palpebral conjunctivae, no ptosis, dry buccal mucosa NECK : Supple, no tenderness CHEST : CTA, no tenderness HEART : Irregular, systolic murmur ABDOMEN: Some distention, nontender EXTREMITIES : Bilateral LE venous stasis without tenderness, open wound left hip with erythematous margins scant drainage, palpable pulses, no other conspicuous deformities noted NEUROLOGIC : Coherent, no facial asymmetry, no other gross focality Principal Diagnosis Postoperative wound infection Possible Greater trochanter for left femur Osteomyelitis Discharge Exam GENERAL: Comfortable, pleasant,, no respiratory distress SKIN: Pallor, warm HEENT: Pale palpebral conjunctivae, no ptosis, dry buccal mucosa NECK : Supple, no tenderness CHEST : CTA, no tenderness HEART : Irregular, systolic murmur ABDOMEN: Some distention, nontender EXTREMITIES : Open wound on left hip; scant discharge; no purulence noted. NEUROLOGIC : Coherent, no facial asymmetry, no other gross focality Discharge Data Allergies Allergy/AdvReac Type Severity Reaction Status Date / Time Penicillins Allergy Itching Verified 11/26/24 15:13 Consultations 12/25/24 19:44 ED Decision to Admit Stat 12/25/24 22:35 Consult Orthopedic Surgery Routine 12/25/24 23:12 Consult Infectious Diseases Routine 12/26/24 13:03 Burn CD for patient Stat Hospital Course (1) Dehiscence of operative wound: Plan Patient is a 74-year-old female with past medical history of hypertension, HFpEF, atrial fibrillation was recently admitted to the hospital from 11/06 to 12/09 with closed hip fracture. She underwent open reduction and internal fixation by Dr. Fitch on 11/07/2024. Postoperative period Was complicated by wound infection for which she underwent I&D on 11/23/2024 and on 12/02/2024. She was treated with IV antibiotic and switched over to p.o. at the time of the discharge. She finished her antibiotic course on 12/23. Patient was discharged to rehab. She is she was discharged to personal half-way from the rehab. Patient was sent to the hospital due to concern for wound infection/management. Postoperative wound infection Possible Greater trochanter for left femur Osteomyelitis History of close hip fracture status post surgery on 11/07/2024, status post I&D of the wound on 11/23/2024 and 12/02/2024. Finished antibiotic on 12/23 CRP down trended from 5.49(on 12/07/2024) to 3.88(12/26/2024). ESR down trended from 23 (on 12/07/2024) to 6(12/26/2024). No leukocytosis present. No fever/chills Hip x-ray on admission "unchanged femoral neck fracture with internal fixation, severe left hip osteoarthritis. New soft tissue gas lateral to left hip. Possible acute osteomyelitis involving displaced greater trochanter of left femur" Orthopedic surgery, infectious disease and wound care have been consulted. Patient was started on meropenem and daptomycin. Patient is also very discussed the care with [facility] for transfer given patient will need for possible plastic surgery, wound care and orthopedic surgery. Patient was accepted for transfer. Persistent atrial fibrillation Valvular heart disease A-fib diagnosed last admission; was treated with IV amiodarone initially. Patient currently on metoprolol succinate 50 mg in a.m. and 25 mg at night; continue. Echo from 11/11 test EF of 65 to 70%; mild mitral stenosis, mild to moderate valvular stenosis History of right lower extremity DVT; diagnosed last admission. On Coumadin continue. Thrombocytopenia- Platelet count 43K on admission; possible that it might be related with recent use of linezolid. Monitor DVT prophylaxis Coumadin Full code Please note the above document was generated using voice recognition software. It may contain grammatical, syntax or spelling errors. Any formal questions or concerns about the content, text or information contained within the body of this dictation should be directly addressed to the provider for clarification Total Time Total Time Spent Total Time Spent (In Minutes): 45 Total Time Includes: Examination of the Patient, Discharge Planning, Medication Reconciliation, Communication With Other Providers and Other Discharge Plan Discharge Items Patient Disposition: Transfer Acute Care Hospital Reason For Visit: L HIP OSTEOMYELITIS, TROP ELEV Discharge Diagnosis: Postoperative wound infection Possible Greater trochanter for left femur Osteomyelitis Condition on Discharge: Fair Activity: Resume your previous activity Non-emergency contact: Primary Care Provider Call non-emergency contact if: you have any medication questions and your symptoms worsen Follow-up/Referrals: PCP,NO [Primary Care Provider] - Diet: Regular Addtl Attending Provider Instructions: Date of Service: December 26, 2024 Current Inpatient Medications Acetaminophen (Acetaminophen 500 Mg Tab) 500 mg PO Q6H PRN PRN Reason: fever/pain Stop: 01/24/25 20:10 Docusate Sodium (Docusate Sodium 100 Mg Cap) 100 mg PO BID AFSHAN Stop: 01/25/25 08:59 Last Admin: 12/26/24 08:40 Dose: Not Given Promethazine HCl (Phenergan) 6.25 mg in 50.25 mls @ 201 mls/hr IV Q6H PRN PRN Reason: Nausea And Vomiting Stop: 01/24/25 20:11 Meropenem 500 mg/ Syringe 10 mls @ 2 mls/min IV Q6H [facility]; Protocol Stop: 02/05/25 20:59 Last Admin: 12/26/24 09:30 Dose: 2 mls/min Sodium Chloride (Nss) 1,000 mls @ 125 mls/hr IV .Q8H [facility] Stop: 12/26/24 19:14 Last Admin: 12/26/24 11:31 Dose: 125 mls/hr Daptomycin 600 mg/ Syringe 12 mls @ 5 mls/min IV Q24H [facility]; Protocol Stop: 02/05/25 14:59 Magnesium Chloride (Magnesium Chloride W/Calcium 64mg Delayed Rel Tab) 64 mg PO BID [facility] Stop: 01/25/25 08:59 Last Admin: 12/26/24 08:39 Dose: 64 mg Metoprolol Succinate (Metoprolol Succ 25mg Ext Rel Tab) 25 mg PO BID [facility] Stop: 01/25/25 08:59 Last Admin: 12/26/24 08:40 Dose: 25 mg Midodrine (Midodrine Hcl 2.5 Mg Tab) 5 mg PO TID@0800,1200,1700 [facility] Stop: 01/25/25 07:59 Last Admin: 12/26/24 11:36 Dose: 5 mg Oxycodone HCl (Oxycodone Hcl Ir 5 Mg Tab (Immediate Release)) 5 mg PO Q4H PRN PRN Reason: Pain Stop: 01/08/25 20:10 Last Admin: 12/26/24 09:57 Dose: 5 mg Pantoprazole Sodium (Pantoprazole 40 Mg Tab) 40 mg PO QAM [facility] Stop: 01/25/25 08:59 Last Admin: 12/26/24 08:40 Dose: 40 mg Polyethylene Glycol (Polyethylene (Miralax) 17 Gm Pack) 17 gm PO DAILY [facility] Stop: 01/25/25 08:59 Last Admin: 12/26/24 08:40 Dose: Not Given Sennosides (Senna 8.6 Mg Tab) 17.2 mg PO QAM [facility] Stop: 01/25/25 08:59 Last Admin: 12/26/24 08:40 Dose: Not Given Pending Studies at Discharge: No Stand-Alone Forms: My [facility] Skilled Items Patient informed of condition?: Yes DNR: No Discharge Level of Care: Skilled Communicable Disease: No Discharge Prognosis: Stable Lines: Peripheral IV Urinary Catheter: No Medications and DC Order Prescriptions: Continued sennosides [Senokot] 8.6 mg Tablet 17.2 mg PO QAM 30 Days Qty: 60 0RF polyethylene glycol 3350 [Miralax] 17 gram Powder In Packet 17 g PO DAILY 30 Days Qty: 30 0RF metoprolol succinate 50 mg Tablet Extended Release 24 Hr 50 mg PO QAM 30 Days Qty: 30 0RF potassium chloride 20 mEq Tablet,Er Particles/Crystals 20 meq PO QAM 30 Days Qty: 30 0RF bisacodyl 10 mg Suppository 10 mg [place] DAILY PRN (Reason: constipation) 30 Days Qty: 30 0RF pantoprazole 40 mg Tablet,Delayed Release (Dr/Ec) 40 mg PO QAM 30 Days Qty: 30 0RF docusate sodium 100 mg Capsule 100 mg PO BID 30 Days Qty: 60 0RF midodrine 2.5 mg Tablet 5 mg PO TID@0800,1200,1700 30 Days Qty: 30 0RF metoprolol succinate 25 mg Tablet Extended Release 24 Hr 25 mg PO HS 30 Days Qty: 30 0RF oxycodone 5 mg Tablet 5 mg PO Q4H PRN (Reason: pain) Qty: 5 0RF magnesium chloride [Mag 64] 64 mg Tablet,Delayed Release (Dr/Ec) 64 mg PO BID 30 Days Qty: 60 0RF cholecalciferol (vitamin D3) 125 mcg (5,000 unit) Tablet 125 mcg PO QAM 30 Days Qty: 30 0RF warfarin 7.5 mg tablet 7.5 mg PO DAILY Qty: 30 0RF Discharge Orders: Discharge Order (Routine); Ordered 12/27/24 Ordered By: Cristian Rodriguez Admission Data Admit Date/Time: 12/25/24 21:22 Attending Provider: Cristian Rodriguez Admit Provider: Nabeel Davis Primary Care Provider: PCP,NO Other Providers: [facility]; Nabeel Davis; Edie Mallory; Silver Fitch; Yusef Jones; Brent Beard; Ania Meyer; Carl Dueñas; Too Watkins; Joshua Fuentes; Joshua Louis; Rosalba Tesfaye; Alexandre Ko; Kamla Beard; Chi Thompson; Cristina Teresa; Rob Boswell.; Chris Kang
[2024-12-27 15:26] VITALS: RESP 21; TEMP 97.9; O2SAT 95
[2024-12-27 15:30] VITALS: BP 108/67
== END 2024-12-27 15:54 | disposition short-term general hospital (02) | DRG 863 ==
LOC: ED 16:45 → 2S 21:22